=== PATIENT | male | born 1960 | race Hispanic/Latino ===

== ENCOUNTER 2018-08-17 14:42 | Inpatient (IN) | payer BC ==
[2018-08-17] MEDS ORDERED: SODIUM CHLORIDE 0.9% IV ONE ×2 (15:10→15:25)
[2018-08-17 15:32] LABS: VENOUS BLOOD GAS BASE EXCESS 4.1 mmol/L (0.0-2.0); VENOUS BLOOD GAS PCO2 36 mmHg (40-60); VENOUS BLOOD GAS PO2 18 mm/Hg (30-55); VENOUS BLOOD PH 7.49 (7.32-7.43)
[2018-08-17 15:33] LABS: BASO % 0.1 % (0.0-2.0); EOS % 0.2 % (0.0-4.0); HEMOGLOBIN 10.1 g/dL (12.0-18.0); LYMPH # 0.1 K/uL (1.0-4.3); LYMPH % 2.4 % (20.0-40.0); MEAN CELL VOLUME 87.8 fL (80.0-94.0); MEAN CORPUSCULAR HEMOGLOBIN 28.5 pg (27.0-31.0); MEAN CORPUSCULAR HGB CONC 32.4 g/dL (33.0-37.0); MEAN PLATELET VOLUME 7.3 fL (7.2-11.7); MONO % 0.9 % (0.0-10.0); NEUT % 96.4 % (50.0-75.0); NRBC % 0.1 % (0.0-2.0); PLATELET COUNT 329 K/uL (130-400); RBC 3.56 Mil/uL (4.40-5.90); RED CELL DISTRIBUTION WIDTH 13.7 % (11.5-14.5); WHITE BLOOD COUNT 5.2 K/uL (4.8-10.8)
--- NOTE | 2018-08-17 15:34 | C.PDOC ---
History Of Present Illness CC "chills, body aches" HPI: Patient is a 58 year old male who states he started experiencing diffuse chills, diffuse bodyaches while he was at work today. He states he was feeling fine until his symptoms started suddenly at around 1 pm today. He states he took a sip of water and then his face became red and warm, and he started experiencing chills and diffuse body aches and feels lightheaded. He states he has had an intermittent cough which he attributes to his smoking. He states the security person at his work called the ambulance and brought the patient here. He denies recent fevers, headache, chest pain, shortness of breath, palpitations, abdominal pain, nausea, vomiting, diarrhea, constipation, urinary complaints. He states he has has worsening weakness of his legs since May. Denies recent falls, syncopal episodes or near syncopal episodes. He denies slurred speech, decreased sensation. He states his co-worker was sick recently. He states he has not had the flu shot or pnemonia shot. PMH: none PSH: hernia 1990 Home meds: vitamins, supplements, Allergies NKDA Social hx: smokes 3/4ppd since age 21, Drinks 1 beer every night. Denies prior history of IV or drug use. Lives with mother, who is not sick. PMD: none <Carisa Mayes - Last Filed: 08/17/18 19:10> <Carisa Mayes - Last Filed: 08/17/18 19:10> <Luisa Schreiber - Last Filed: 08/18/18 14:47> Time Seen by Provider: 08/17/18 15:01 Chief Complaint (Nursing): Weakness/Neurological Deficit Past Medical History Vital Signs: Last Vital Signs Temp 104 F H 08/17/18 14:56 Pulse 135 H 08/17/18 14:56 Resp 20 08/17/18 14:56 BP 89/41 L 08/17/18 14:56 Pulse Ox 99 08/17/18 14:56 Family History: States: No Known Family Hx - Social History Hx Alcohol Use: Yes Hx Substance Use: No - Immunization History Hx Tetanus Toxoid Vaccination: No Hx Influenza Vaccination: No Hx Pneumococcal Vaccination: No <Carisa Mayes - Last Filed: 08/17/18 19:10> Vital Signs: Last Vital Signs Temp 98.6 F 08/18/18 04:00 Pulse 71 08/18/18 08:00 Resp 19 08/18/18 08:00 BP 93/63 L 08/18/18 08:00 Pulse Ox 98 08/18/18 08:00 <SandratracyLuisa smith - Last Filed: 08/18/18 14:47> Review Of Systems Constitutional: Positive for: Chills, Weakness. Negative for: Fever, Sweats, Malaise, Weight loss ENT: Negative for: Ear Pain, Ear Discharge Cardiovascular: Negative for: Chest Pain, Palpitations Respiratory: Positive for: Cough. Negative for: Shortness of Breath Gastrointestinal: Negative for: Nausea, Vomiting, Abdominal Pain, Constipation Genitourinary: Negative for: Dysuria Musculoskeletal: Negative for: Neck Pain, Shoulder Pain, Back Pain Neurological: Positive for: Weakness (diffuse, not focal), Dizziness (lightheadedness ). Negative for: Seizures Psych: Negative for: Anxiety, Depression <Carisa Mayes - Last Filed: 08/17/18 19:10> Physical Exam - Physical Exam Appears: Other (Patient appears weak, tired, but not currently in pain. ) Skin: Dry, No Jaundice, Other (skin feel warm to touch) Head: Atraumatic, Normacephalic Eye(s): bilateral: PERRL, EOMI Ear(s): Bilateral: Normal Nose: Normal Oral Mucosa: Dry Throat: Normal Neck: Normal, No Midline Cervical Tenderness Cardiovascular: No Friction Rub, No Murmur, No JVD, Other (Tachycardic) Respiratory: Decreased Breath Sounds, No Rales, No Rhonchi, No Stridor, No Wheezing Gastrointestinal/Abdominal: Bowel Sounds, Soft, No Tenderness, No Mass, No Distention, No Rebound, No Hernia, No Ascites Back: No CVA Tenderness Extremity: Normal ROM, Pedal Edema (Minimal), No Calf Tenderness Neurological/Psych: Oriented x3, Normal Speech, Normal Cognition, Normal Cranial Nerves, Cerebellar Signs, Normal Motor, Normal Sensation <Carisa Mayes - Last Filed: 08/17/18 19:10> ED Course And Treatment - Laboratory Results Result Diagrams: 08/17/18 15:27 08/17/18 15:27 ECG Rhythm: Sinus Tachycardia Interpretation Of ECG: Sinus tachycardia at 125 with PACs O2 Sat by Pulse Oximetry: 99 - Radiology CXR: Read By Radiologist CXR Interpretation: Yes: No Acute Disease <Carisa Mayes - Last Filed: 08/17/18 19:10> - Laboratory Results Result Diagrams: 08/18/18 05:49 08/18/18 05:49 <Luisa Schreiber - Last Filed: 08/18/18 14:47> Central Line Placement - Central Line Placement Indication: Emergent IV Access (for pressors, procedure done by Abdoul ANG) Central Line Placement: Right: Internal Jugular The Area Was Thoroughly Prepared With: Chlorhexidine Area Was Locally Anesthetized With: Lidocaine 1% Procedure: Triple Lumen, Placed Using Standard Seldinger Technique, Catheter Was Sewn Into Place, Sterile Dressing Placed Over Line, Procedure Tolerated Well, CXR Ordered To Confirm Placement <Luisa Schreiber - Last Filed: 08/18/18 14:47> Medical Decision Making Medical Decision Making: Code sepsis called after patient found to be febrile with elevated HR, hypotension. CBC, CMP, UA, CXR, VBG, blood cultures, urine cultures ordered. NS IV fluids given. Tylenol 975mg PO given. Vancomycin 1g IV stat and Zosyn 3.375g IV given. White count 5.2 with left shift, bands of 10. Lactate 5.7 Glucose 377 UA neg for leuk esterase and nitrates, positive for ketones, glucose, protein. Beta hydroxybutyrate 1.40 Flu negative 1630 On repeat evaluation, patient HR 108, BP 95/56 1700: Call placed to Dr. Ramey, who agreed to admit patient and requested ICU evaluation. 1710: Patient states he feels better. BP 72/56 HR 103. Additional 1L NS IV bolus (3rd liter) started. 1745: ICU evaluated patient who will accept patient. 1810: Repeat lactate 3.3 <Carisa Mayes - Last Filed: 08/17/18 19:10> Disposition Discussed With : Mansoor Ramey Doctor Will See Patient In The: Hospital - Disposition Disposition Time: 18:00 - POA Core Measure Indicators: Code Sepsis <Carisa Mayes - Last Filed: 08/17/18 19:10> <Luisa Schreiber - Last Filed: 08/18/18 14:47> - Disposition Disposition: HOSPITALIZED Condition: CRITICAL - Clinical Impression Clinical Impression: Sepsis associated hypotension - PA / [employer] DEPARTMENT MANAGER / Resident Statement MD/DO has examined the patient and agrees with the treatment plan. <Luisa Schreiber - Last Filed: 08/18/18 14:47>
[2018-08-17] MEDS ORDERED: Piperacillin/Tazobact 3.375 GM in Sodium Chloride 100 ML IVPB STA (15:43)
[2018-08-17 15:46] LABS: ALBUMIN 2.9 g/dL (3.5-5.0); ALT/SGPT 39 U/L (21-72); AST/SGOT 36 U/L (17-59); BLOOD UREA NITROGEN 12 mg/dL (9-20); CALCIUM 8.8 mg/dl (8.6-10.4); GFR NON-AFRICAN AMERICAN > 60
[2018-08-17 15:55] LABS: BANDS 10 % (0-2); LYMPHOCYTE 4 % (20-40); MONOCYTE 1 % (0-10); NEUTROPHIL 85 % (50-75); PLATELET ESTIMATE NORMAL (NORMAL); TOTAL CELLS COUNTED 100
[2018-08-17 15:56] LABS: ANISOCYTOSIS SLIGHT; HYPOCHROMIC SLIGHT; POIKILOCYTOSIS SLIGHT; TARGET CELLS SLIGHT
--- NOTE | 2018-08-17 16:05 | RAD ---
Date of service: 08/17/2018 HISTORY: Cough COMPARISON: No prior. FINDINGS: LUNGS: The lungs are well inflated and clear. PLEURA: No pleural effusions or pneumothorax. CARDIOVASCULAR: The heart is normal in size. No aortic atherosclerotic calcification present. OSSEOUS STRUCTURES: Within normal limits for the patient's age. VISUALIZED UPPER ABDOMEN: Normal. OTHER FINDINGS: None. IMPRESSION: No active pulmonary disease.
[2018-08-17] MEDS ORDERED: Piperacillin/Tazobact 3.375 gm 100 ML IVPB ONE (16:15)
[2018-08-17 16:32] LABS: SQUAMOUS EPITHIAL < 1 /hpf (0-5); URINE BACTERIA RARE (<OCC); URINE BILIRUBIN NEGATIVE (NEGATIVE); URINE BLOOD NEGATIVE (NEGATIVE); URINE CLARITY Hazy (Clear); URINE COLOR Yellow (YELLOW); URINE GLUCOSE (UA) 3+ mg/dL (Normal); URINE HYALINE CAST >20 /lpf (0-2); URINE LEUKOCYTE ESTERASE NEG Leu/uL (Negative); URINE PROTEIN 2+ mg/dL (NEGATIVE)
[2018-08-17] MEDS ORDERED: Sodium Chloride 0.9% 1,000 ML IV ONE ×2 (16:44→20:47)
[2018-08-17] MEDS ORDERED: Sodium Chloride 0.9% 3,000 ML ONE (17:25)
[2018-08-17] MEDS ORDERED: Vancomycin 1 GM 1 GM/250 ML BAG IVPB ONE (17:46)
[2018-08-17 18:11] LABS: VENOUS BLOOD GAS BASE EXCESS 1.3 mmol/L (0.0-2.0); VENOUS BLOOD GAS PCO2 36 mmHg (40-60); VENOUS BLOOD GAS PO2 23 mm/Hg (30-55); VENOUS BLOOD PH 7.45 (7.32-7.43)
--- NOTE | 2018-08-17 18:11 | CP.PCM.CON ---
<Enrique Dye - Last Filed: 08/17/18 18:14> History of Present Illness - History of Present Illness History of Present Illness: ICU consult note for Dr. Choudhary's service CC: chills/bodyaches HPI: Patient is a 58 yo male w/PMH of prediabetes that is admitted to ICU for low blood pressure and septic shock. Patient state he was totally fine today until he drank some water when he felt his face became very warm and red. He soon started to feel lightheaded and experienced chills. Patient states he has a cough but states it is due to his smoking habit. Patient was seen by his pmd on 08/13 for elevated sugars into the 500s. Patient states he drank 1 gallon of water in past 2 days. Patient denies fevers, chills, chest pain, sob, n/v, constipation or diarrhea, abd pain, diaphoresis, polyuria. PMH: none PSH: hernia 1990 Home meds: vitamins, supplements Allergies NKDA Social hx: smokes 3/4ppd since age 21, Drinks 1 beer every night. Denies prior history of IV or drug use. Lives with mother, who is not sick. Review of Systems - Review of Systems Review of Systems: 12 point ROS obtained and noted as in HPI Past Patient History - Past Social History Smoking Status: Light Smoker < 10 Cigarettes Daily - ENDOCRINE/METABOLIC Hx Diabetes Mellitus Type 2: Yes - PSYCHIATRIC Hx Substance Use: No Meds Allergies/Adverse Reactions: Allergies Allergy/AdvReac Type Severity Reaction Status Date / Time No Known Allergies Allergy Unverified 08/17/18 15:04 Physical Exam - Constitutional Appears: Non-toxic, No Acute Distress - Head Exam Head Exam: NORMAL INSPECTION, NORMOCEPHALIC - Eye Exam Eye Exam: EOMI, Normal appearance. absent: Nystagmus, Scleral icterus - ENT Exam ENT Exam: Mucous Membranes Dry - Respiratory Exam Respiratory Exam: Clear to Auscultation Bilateral, NORMAL BREATHING PATTERN. absent: Rales, Rhonchi, Wheezes - Cardiovascular Exam Cardiovascular Exam: REGULAR RHYTHM, +S1, +S2 Additional comments: borderline tachycardia - GI/Abdominal Exam GI & Abdominal Exam: Normal Bowel Sounds, Soft. absent: Diminished Bowel Sounds, Distended, Firm, Guarding - Extremities Exam Extremities exam: Positive for: pedal edema. Negative for: calf tenderness - Back Exam Back exam: NORMAL INSPECTION. absent: CVA tenderness (L), CVA tenderness (R) - Neurological Exam Neurological exam: Alert, Oriented x3 - Psychiatric Exam Psychiatric exam: Normal Affect, Normal Mood - Skin Skin Exam: Intact, Normal Color Results - Vital Signs Recent Vital Signs: Last Vital Signs Temp 102.3 F H 08/17/18 17:24 Pulse 98 H 08/17/18 17:24 Resp 14 08/17/18 17:24 BP 80/45 L 08/17/18 17:24 Pulse Ox 99 08/17/18 18:07 - Labs Result Diagrams: 08/17/18 15:27 08/17/18 15:27 Labs: Laboratory Results - last 24 hr 08/17/18 08/17/18 08/17/18 14:47 15:25 15:27 WBC 5.2 RBC 3.56 L Hgb 10.1 L Hct 31.2 L MCV 87.8 MCH 28.5 MCHC 32.4 L RDW 13.7 Plt Count 329 MPV 7.3 Neut % (Auto) 96.4 H Lymph % (Auto) 2.4 L [place] % (Auto) 0.9 Eos % (Auto) 0.2 Baso % (Auto) 0.1 Neut # (Auto) 5.0 Lymph # (Auto) 0.1 L [place] # (Auto) 0.0 Eos # (Auto) 0.0 Baso # (Auto) 0.0 Neutrophils % (Manual) 85 H Band Neutrophils % 10 H Lymphocytes % (Manual) 4 L Monocytes % (Manual) 1 Platelet Estimate Normal Hypochromasia (manual) Slight Poikilocytosis (manual Slight Anisocytosis (manual) Slight Target Cells Slight pO2 18 L VBG pH 7.49 H VBG pCO2 36 L VBG HCO3 26.4 VBG Total CO2 28.5 H VBG O2 Sat (Calc) 46.5 VBG Base Excess 4.1 H VBG Potassium 4.2 Sodium 127.0 L Chloride 95.0 L Glucose 399 H Lactate 5.7 H* FiO2 21.0 Crit Value Called To Armani iyer Crit Value Called By [facility] Crit Value Read Back Y Blood Gas Notified Time 1532 Potassium Carbon Dioxide Anion Gap BUN Creatinine Est GFR ( Amer) Est GFR (Non-Af Amer) POC Glucose (mg/dL) 365 H Random Glucose Calcium Total Bilirubin AST ALT Alkaline Phosphatase Total Protein Albumin Globulin Albumin/Globulin Ratio Venous Blood Potassium 4.2 Urine Color Urine Clarity Urine pH Ur Specific [place] Urine Protein Urine Glucose (UA) Urine Ketones Urine Blood Urine Nitrate Urine Bilirubin Urine Urobilinogen Ur Leukocyte Esterase Urine WBC (Auto) Urine RBC (Auto) Ur Squamous Epith Cells Urine Bacteria Hyaline Casts Alcohol, Quantitative B-Hydroxybutyrate Influenza Typ A,B (EIA) 08/17/18 08/17/18 08/17/18 15:27 16:02 16:21 WBC RBC Hgb Hct MCV MCH MCHC RDW Plt Count MPV Neut % (Auto) Lymph % (Auto) [place] % (Auto) Eos % (Auto) Baso % (Auto) Neut # (Auto) Lymph # (Auto) [place] # (Auto) Eos # (Auto) Baso # (Auto) Neutrophils % (Manual) Band Neutrophils % Lymphocytes % (Manual) Monocytes % (Manual) Platelet Estimate Hypochromasia (manual) Poikilocytosis (manual Anisocytosis (manual) Target Cells pO2 VBG pH VBG pCO2 VBG HCO3 VBG Total CO2 VBG O2 Sat (Calc) VBG Base Excess VBG Potassium Sodium 127 L Chloride 90 L Glucose Lactate FiO2 Crit Value Called To Crit Value Called By Crit Value Read Back Blood Gas Notified Time Potassium 4.3 Carbon Dioxide 27 Anion Gap 16 BUN 12 Creatinine 0.8 Est GFR ( Amer) > 60 Est GFR (Non-Af Amer) > 60 POC Glucose (mg/dL) Random Glucose 377 H Calcium 8.8 Total Bilirubin 0.8 AST 36 ALT 39 Alkaline Phosphatase 156 H Total Protein 6.0 L Albumin 2.9 L Globulin 3.1 Albumin/Globulin Ratio 1.0 Venous Blood Potassium Urine Color Yellow Urine Clarity Hazy Urine pH 6.0 Ur Specific [place] 1.011 Urine Protein 2+ H Urine Glucose (UA) 3+ H Urine Ketones 1+ H Urine Blood Negative Urine Nitrate Negative Urine Bilirubin Negative Urine Urobilinogen 4.0 Ur Leukocyte Esterase Neg Urine WBC (Auto) 3 Urine RBC (Auto) 2 Ur Squamous Epith Cells < 1 Urine Bacteria Rare Hyaline Casts >20 H Alcohol, Quantitative B-Hydroxybutyrate Influenza Typ A,B (EIA) Negative for flu a/b 08/17/18 16:26 WBC RBC Hgb Hct MCV MCH MCHC RDW Plt Count MPV Neut % (Auto) Lymph % (Auto) [place] % (Auto) Eos % (Auto) Baso % (Auto) Neut # (Auto) Lymph # (Auto) [place] # (Auto) Eos # (Auto) Baso # (Auto) Neutrophils % (Manual) Band Neutrophils % Lymphocytes % (Manual) Monocytes % (Manual) Platelet Estimate Hypochromasia (manual) Poikilocytosis (manual Anisocytosis (manual) Target Cells pO2 VBG pH VBG pCO2 VBG HCO3 VBG Total CO2 VBG O2 Sat (Calc) VBG Base Excess VBG Potassium Sodium Chloride Glucose Lactate FiO2 Crit Value Called To Crit Value Called By Crit Value Read Back Blood Gas Notified Time Potassium Carbon Dioxide Anion Gap BUN Creatinine Est GFR ( Amer) Est GFR (Non-Af Amer) POC Glucose (mg/dL) Random Glucose Calcium Total Bilirubin AST ALT Alkaline Phosphatase Total Protein Albumin Globulin Albumin/Globulin Ratio Venous Blood Potassium Urine Color Urine Clarity Urine pH Ur Specific [place] Urine Protein Urine Glucose (UA) Urine Ketones Urine Blood Urine Nitrate Urine Bilirubin Urine Urobilinogen Ur Leukocyte Esterase Urine WBC (Auto) Urine RBC (Auto) Ur Squamous Epith Cells Urine Bacteria Hyaline Casts Alcohol, Quantitative < 10 B-Hydroxybutyrate 1.40 H Influenza Typ A,B (EIA) Assessment & Plan - Assessment and Plan (Free Text) Assessment: Patient is a 58 yo male w/PMH of prediabetes that is admitted to ICU for low blood pressure and septic shock. Neuro AAOx3, responsive to questioning, no acute issues Pulm no acute issues maintain spo2>92% CV 3L NS bolus given in ED, patient remains hypotensive Will require multiple more boluses as patient likely dehydrated in setting of elevated blood sugars Consider blood pressure support if patient does not respond to fluid challenge or becomes symptomatic Echo pending Levophed drip initiated in ED Endo Elevated blood sugars- given multiple boluses ISS sliding scale, ACHS, Hypogylemic protocol A1C pending GI no active issues Renal ABG suggestive of contraction alkalosis NS boluses ID Elevated lactate, repeat lactate downtrending Empiric abx via Vanc/Zosyn BCx pending x 2; Procal pending DVT ppx: SCDs, Hep 5000 q 12 GI ppx: Not indicated at this time Disposition: Continue aggressive fluids as patient is in septic shock, continue blood pressure support via pressors, ACHS and insulin, repeat labs in AM PGY-1 Enrique Dye Medical Management discussed w/ Dr. Choudhary <Glenn Choudhary - Last Filed: 08/17/18 19:30> Meds - Medications Medications: Current Medications Acetaminophen (Tylenol 325mg Tab) 650 mg PO Q6 PRN PRN Reason: Fever >100.4 F Dextrose (Dextrose 50% Inj) 0 ml IV STAT PRN; Protocol PRN Reason: Hypoglycemia Protocol Dextrose (Glutose 15) 0 gm PO ONCE PRN; Protocol PRN Reason: Hypoglycemia Protocol Glucagon (Glucagen Diagnostic Kit) 0 mg IM STAT PRN; Protocol PRN Reason: Hypoglycemia Protocol Heparin Sodium (Porcine) (Heparin) 5,000 units SC Q12 EDER Dextrose (Dextrose 5% In Water 1000 Ml) 1,000 mls @ 0 mls/hr IV .Q0M PRN; Protocol PRN Reason: Hypoglycemia Protocol Norepinephrine Bitartrate 4 mg (/ Dextrose) 254 mls @ 15.24 mls/hr IV .[id number] PRN; Protocol PRN Reason: TITRATE PER MD ORDER Last Admin: 08/17/18 19:09 Dose: 4 mcg/min, 15.24 mls/hr Insulin Human Regular (Novolin R) 0 unit SC ACHS EDER; Protocol Results - Vital Signs Recent Vital Signs: Last Vital Signs Temp 102.3 F H 08/17/18 17:24 Pulse 90 08/17/18 18:21 Resp 15 08/17/18 18:21 BP 73/46 L 08/17/18 19:09 Pulse Ox 99 08/17/18 19:10 - Labs Result Diagrams: 08/17/18 15:27 08/17/18 15:27 Labs: Laboratory Results - last 24 hr 08/17/18 08/17/18 08/17/18 14:47 15:25 15:27 WBC 5.2 RBC 3.56 L Hgb 10.1 L Hct 31.2 L MCV 87.8 MCH 28.5 MCHC 32.4 L RDW 13.7 Plt Count 329 MPV 7.3 Neut % (Auto) 96.4 H Lymph % (Auto) 2.4 L [place] % (Auto) 0.9 Eos % (Auto) 0.2 Baso % (Auto) 0.1 Neut # (Auto) 5.0 Lymph # (Auto) 0.1 L [place] # (Auto) 0.0 Eos # (Auto) 0.0 Baso # (Auto) 0.0 Neutrophils % (Manual) 85 H Band Neutrophils % 10 H Lymphocytes % (Manual) 4 L Monocytes % (Manual) 1 Platelet Estimate Normal Hypochromasia (manual) Slight Poikilocytosis (manual Slight Anisocytosis (manual) Slight Target Cells Slight pO2 18 L VBG pH 7.49 H VBG pCO2 36 L VBG HCO3 26.4 VBG Total CO2 28.5 H VBG O2 Sat (Calc) 46.5 VBG Base Excess 4.1 H VBG Potassium 4.2 Sodium 127.0 L Chloride 95.0 L Glucose 399 H Lactate 5.7 H* FiO2 21.0 Crit Value Called To Armani iyer Crit Value Called By [facility] Crit Value Read Back Y Blood Gas Notified Time 1532 Potassium Carbon Dioxide Anion Gap BUN Creatinine Est GFR ( Amer) Est GFR (Non-Af Amer) POC Glucose (mg/dL) 365 H Random Glucose Calcium Total Bilirubin AST ALT Alkaline Phosphatase Total Protein Albumin Globulin Albumin/Globulin Ratio Venous Blood Potassium 4.2 Urine Color Urine Clarity Urine pH Ur Specific [place] Urine Protein Urine Glucose (UA) Urine Ketones Urine Blood Urine Nitrate Urine Bilirubin Urine Urobilinogen Ur Leukocyte Esterase Urine WBC (Auto) Urine RBC (Auto) Ur Squamous Epith Cells Urine Bacteria Hyaline Casts Urine Opiates Screen Urine Methadone Screen Ur Barbiturates Screen Ur Phencyclidine Scrn Ur Amphetamines Screen U Benzodiazepines Scrn U Oth Cocaine Metabols U Cannabinoids Screen Alcohol, Quantitative B-Hydroxybutyrate Influenza Typ A,B (EIA) 08/17/18 08/17/18 08/17/18 15:27 16:02 16:21 WBC RBC Hgb Hct MCV MCH MCHC RDW Plt Count MPV Neut % (Auto) Lymph % (Auto) [place] % (Auto) Eos % (Auto) Baso % (Auto) Neut # (Auto) Lymph # (Auto) [place] # (Auto) Eos # (Auto) Baso # (Auto) Neutrophils % (Manual) Band Neutrophils % Lymphocytes % (Manual) Monocytes % (Manual) Platelet Estimate Hypochromasia (manual) Poikilocytosis (manual Anisocytosis (manual) Target Cells pO2 VBG pH VBG pCO2 VBG HCO3 VBG Total CO2 VBG O2 Sat (Calc) VBG Base Excess VBG Potassium Sodium 127 L Chloride 90 L Glucose Lactate FiO2 Crit Value Called To Crit Value Called By Crit Value Read Back Blood Gas Notified Time Potassium 4.3 Carbon Dioxide 27 Anion Gap 16 BUN 12 Creatinine 0.8 Est GFR ( Amer) > 60 Est GFR (Non-Af Amer) > 60 POC Glucose (mg/dL) Random Glucose 377 H Calcium 8.8 Total Bilirubin 0.8 AST 36 ALT 39 Alkaline Phosphatase 156 H Total Protein 6.0 L Albumin 2.9 L Globulin 3.1 Albumin/Globulin Ratio 1.0 Venous Blood Potassium Urine Color Yellow Urine Clarity Hazy Urine pH 6.0 Ur Specific [place] 1.011 Urine Protein 2+ H Urine Glucose (UA) 3+ H Urine Ketones 1+ H Urine Blood Negative Urine Nitrate Negative Urine Bilirubin Negative Urine Urobilinogen 4.0 Ur Leukocyte Esterase Neg Urine WBC (Auto) 3 Urine RBC (Auto) 2 Ur Squamous Epith Cells < 1 Urine Bacteria Rare Hyaline Casts >20 H Urine Opiates Screen Urine Methadone Screen Ur Barbiturates Screen Ur Phencyclidine Scrn Ur Amphetamines Screen U Benzodiazepines Scrn U Oth Cocaine Metabols U Cannabinoids Screen Alcohol, Quantitative B-Hydroxybutyrate Influenza Typ A,B (EIA) Negative for flu a/b 08/17/18 08/17/18 08/17/18 16:26 18:04 18:05 WBC RBC Hgb Hct MCV MCH MCHC RDW Plt Count MPV Neut % (Auto) Lymph % (Auto) [place] % (Auto) Eos % (Auto) Baso % (Auto) Neut # (Auto) Lymph # (Auto) [place] # (Auto) Eos # (Auto) Baso # (Auto) Neutrophils % (Manual) Band Neutrophils % Lymphocytes % (Manual) Monocytes % (Manual) Platelet Estimate Hypochromasia (manual) Poikilocytosis (manual Anisocytosis (manual) Target Cells pO2 23 L VBG pH 7.45 H VBG pCO2 36 L VBG HCO3 24.5 VBG Total CO2 26.1 VBG O2 Sat (Calc) 58.8 VBG Base Excess 1.3 VBG Potassium 3.8 Sodium 131.0 L Chloride 99.0 Glucose 366 H Lactate 3.3 H FiO2 21.0 Crit Value Called To Crit Value Called By Crit Value Read Back Blood Gas Notified Time Potassium Carbon Dioxide Anion Gap BUN Creatinine Est GFR ( Amer) Est GFR (Non-Af Amer) POC Glucose (mg/dL) Random Glucose Calcium Total Bilirubin AST ALT Alkaline Phosphatase Total Protein Albumin Globulin Albumin/Globulin Ratio Venous Blood Potassium 3.8 Urine Color Urine Clarity Urine pH Ur Specific [place] Urine Protein Urine Glucose (UA) Urine Ketones Urine Blood Urine Nitrate Urine Bilirubin Urine Urobilinogen Ur Leukocyte Esterase Urine WBC (Auto) Urine RBC (Auto) Ur Squamous Epith Cells Urine Bacteria Hyaline Casts Urine Opiates Screen Negative Urine Methadone Screen Negative Ur Barbiturates Screen Negative Ur Phencyclidine Scrn Negative Ur Amphetamines Screen Negative U Benzodiazepines Scrn Negative U Oth Cocaine Metabols Negative U Cannabinoids Screen Negative Alcohol, Quantitative < 10 B-Hydroxybutyrate 1.40 H Influenza Typ A,B (EIA) 08/17/18 18:20 WBC RBC Hgb Hct MCV MCH MCHC RDW Plt Count MPV Neut % (Auto) Lymph % (Auto) [place] % (Auto) Eos % (Auto) Baso % (Auto) Neut # (Auto) Lymph # (Auto) [place] # (Auto) Eos # (Auto) Baso # (Auto) Neutrophils % (Manual) Band Neutrophils % Lymphocytes % (Manual) Monocytes % (Manual) Platelet Estimate Hypochromasia (manual) Poikilocytosis (manual Anisocytosis (manual) Target Cells pO2 VBG pH VBG pCO2 VBG HCO3 VBG Total CO2 VBG O2 Sat (Calc) VBG Base Excess VBG Potassium Sodium Chloride Glucose Lactate FiO2 Crit Value Called To Crit Value Called By Crit Value Read Back Blood Gas Notified Time Potassium Carbon Dioxide Anion Gap BUN Creatinine Est GFR ( Amer) Est GFR (Non-Af Amer) POC Glucose (mg/dL) 356 H Random Glucose Calcium Total Bilirubin AST ALT Alkaline Phosphatase Total Protein Albumin Globulin Albumin/Globulin Ratio Venous Blood Potassium Urine Color Urine Clarity Urine pH Ur Specific [place] Urine Protein Urine Glucose (UA) Urine Ketones Urine Blood Urine Nitrate Urine Bilirubin Urine Urobilinogen Ur Leukocyte Esterase Urine WBC (Auto) Urine RBC (Auto) Ur Squamous Epith Cells Urine Bacteria Hyaline Casts Urine Opiates Screen Urine Methadone Screen Ur Barbiturates Screen Ur Phencyclidine Scrn Ur Amphetamines Screen U Benzodiazepines Scrn U Oth Cocaine Metabols U Cannabinoids Screen Alcohol, Quantitative B-Hydroxybutyrate Influenza Typ A,B (EIA) Attending/Attestation - Attestation I have personally seen and examined this patient.: Yes I have fully participated in the care of the patient.: Yes I have reviewed all pertinent clinical information: Yes Notes (Text): 08/17/18 19:29 Patient seen and examined in the emergency room assessment and plan as per resident note fluid resuscitation iV antibiotics ICU monitoring
[2018-08-17] MEDS ORDERED: Dextrose 50% SYRINGE Inj (50 ml) IV PRN (18:20)
[2018-08-17] MEDS ORDERED: Glucagon Recombinant 1 mg Inj IM PRN (18:20)
[2018-08-17 18:26] LABS: BARBITURATES, UR NEGATIVE (NEGATIVE); BENZODIAZEPINES, UR NEGATIVE (NEGATIVE); OPIATES, UR NEGATIVE (NEGATIVE); PHENCYCLIDINE, UR NEGATIVE (NEGATIVE)
--- NOTE | 2018-08-17 19:27 | CP.PCM.HP ---
History of Present Illness - History of Present Illness History of Present Illness: Patient was admitted from emergency room. Patient states that 2 days ago there was a medical van from [facility] where he did his blood sugar which was over 500. Patient was given Accu-Chek machine and he checked again the sugar prior to admission which was 472. On the day of admission patient was working in his job and suddenly felt nauseous and diaphoretic and had a near syncopal episode. Patient was brought to the emergency room patient had a hypertension IV fluids were given with mild improvement of the blood pressure in the 90s patient had a high sugar mild ketones chest x-ray was normal and there was no evidence of any obvious focus of infection. Sepsis could was called patient was given IV antibiotic and admitted to ICU. Patient does not give any medical illness. The last time patient saw any physician was 10 years ago for sugar. Since then patient has not taken any medication. Patient is also complaining of mild edema of the legs and generalized aches and pains. Present on Admission - Present on Admission Any Indicators Present on Admission: No Review of Systems - Review of Systems All systems: reviewed and no additional remarkable complaints except (GENERALIZED FATIGUE DIAPHORESIS.) Past Patient History - Past Social History Smoking Status: Light Smoker < 10 Cigarettes Daily - ENDOCRINE/METABOLIC Hx Diabetes Mellitus Type 2: Yes - PSYCHIATRIC Hx Substance Use: No Meds Allergies/Adverse Reactions: Allergies Allergy/AdvReac Type Severity Reaction Status Date / Time No Known Allergies Allergy Unverified 08/17/18 15:04 Physical Exam - Constitutional Appears: Toxic - Head Exam Head Exam: ATRAUMATIC, NORMAL INSPECTION, NORMOCEPHALIC - Eye Exam Eye Exam: EOMI, Normal appearance, PERRL - ENT Exam ENT Exam: Mucous Membranes Dry - Neck Exam Neck exam: Positive for: Normal Inspection - Respiratory Exam Respiratory Exam: NORMAL BREATHING PATTERN - Cardiovascular Exam Cardiovascular Exam: +S1, +S2. absent: Systolic Murmur - GI/Abdominal Exam GI & Abdominal Exam: Normal Bowel Sounds, Soft. absent: Tenderness - Extremities Exam Extremities exam: Positive for: pedal edema. Negative for: calf tenderness - Back Exam Back exam: NORMAL INSPECTION - Neurological Exam Neurological exam: Alert, CN II-XII Intact, Oriented x3, Reflexes Normal - Psychiatric Exam Psychiatric exam: Normal Affect Results - Vital Signs Recent Vital Signs: Last Vital Signs Temp 102.3 F H 08/17/18 17:24 Pulse 90 08/17/18 18:21 Resp 15 08/17/18 18:21 BP 73/46 L 08/17/18 19:09 Pulse Ox 99 08/17/18 19:10 - Labs Result Diagrams: 08/18/18 05:49 08/18/18 05:49 Labs: Laboratory Results - last 24 hr 08/17/18 08/17/18 08/17/18 14:47 15:25 15:27 WBC 5.2 RBC 3.56 L Hgb 10.1 L Hct 31.2 L MCV 87.8 MCH 28.5 MCHC 32.4 L RDW 13.7 Plt Count 329 MPV 7.3 Neut % (Auto) 96.4 H Lymph % (Auto) 2.4 L Lynn % (Auto) 0.9 Eos % (Auto) 0.2 Baso % (Auto) 0.1 Neut # (Auto) 5.0 Lymph # (Auto) 0.1 L Lynn # (Auto) 0.0 Eos # (Auto) 0.0 Baso # (Auto) 0.0 Neutrophils % (Manual) 85 H Band Neutrophils % 10 H Lymphocytes % (Manual) 4 L Monocytes % (Manual) 1 Platelet Estimate Normal Hypochromasia (manual) Slight Poikilocytosis (manual Slight Anisocytosis (manual) Slight Target Cells Slight pO2 18 L VBG pH 7.49 H VBG pCO2 36 L VBG HCO3 26.4 VBG Total CO2 28.5 H VBG O2 Sat (Calc) 46.5 VBG Base Excess 4.1 H VBG Potassium 4.2 Sodium 127.0 L Chloride 95.0 L Glucose 399 H Lactate 5.7 H* FiO2 21.0 Crit Value Called To Armani iyer Crit Value Called By [facility] Crit Value Read Back Y Blood Gas Notified Time 1532 Potassium Carbon Dioxide Anion Gap BUN Creatinine Est GFR ( Amer) Est GFR (Non-Af Amer) POC Glucose (mg/dL) 365 H Random Glucose Calcium Total Bilirubin AST ALT Alkaline Phosphatase Total Protein Albumin Globulin Albumin/Globulin Ratio Venous Blood Potassium 4.2 Urine Color Urine Clarity Urine pH Ur Specific [place] Urine Protein Urine Glucose (UA) Urine Ketones Urine Blood Urine Nitrate Urine Bilirubin Urine Urobilinogen Ur Leukocyte Esterase Urine WBC (Auto) Urine RBC (Auto) Ur Squamous Epith Cells Urine Bacteria Hyaline Casts Urine Opiates Screen Urine Methadone Screen Ur Barbiturates Screen Ur Phencyclidine Scrn Ur Amphetamines Screen U Benzodiazepines Scrn U Oth Cocaine Metabols U Cannabinoids Screen Alcohol, Quantitative B-Hydroxybutyrate Influenza Typ A,B (EIA) 08/17/18 08/17/18 08/17/18 15:27 16:02 16:21 WBC RBC Hgb Hct MCV MCH MCHC RDW Plt Count MPV Neut % (Auto) Lymph % (Auto) Lynn % (Auto) Eos % (Auto) Baso % (Auto) Neut # (Auto) Lymph # (Auto) Lynn # (Auto) Eos # (Auto) Baso # (Auto) Neutrophils % (Manual) Band Neutrophils % Lymphocytes % (Manual) Monocytes % (Manual) Platelet Estimate Hypochromasia (manual) Poikilocytosis (manual Anisocytosis (manual) Target Cells pO2 VBG pH VBG pCO2 VBG HCO3 VBG Total CO2 VBG O2 Sat (Calc) VBG Base Excess VBG Potassium Sodium 127 L Chloride 90 L Glucose Lactate FiO2 Crit Value Called To Crit Value Called By Crit Value Read Back Blood Gas Notified Time Potassium 4.3 Carbon Dioxide 27 Anion Gap 16 BUN 12 Creatinine 0.8 Est GFR ( Amer) > 60 Est GFR (Non-Af Amer) > 60 POC Glucose (mg/dL) Random Glucose 377 H Calcium 8.8 Total Bilirubin 0.8 AST 36 ALT 39 Alkaline Phosphatase 156 H Total Protein 6.0 L Albumin 2.9 L Globulin 3.1 Albumin/Globulin Ratio 1.0 Venous Blood Potassium Urine Color Yellow Urine Clarity Hazy Urine pH 6.0 Ur Specific [place] 1.011 Urine Protein 2+ H Urine Glucose (UA) 3+ H Urine Ketones 1+ H Urine Blood Negative Urine Nitrate Negative Urine Bilirubin Negative Urine Urobilinogen 4.0 Ur Leukocyte Esterase Neg Urine WBC (Auto) 3 Urine RBC (Auto) 2 Ur Squamous Epith Cells < 1 Urine Bacteria Rare Hyaline Casts >20 H Urine Opiates Screen Urine Methadone Screen Ur Barbiturates Screen Ur Phencyclidine Scrn Ur Amphetamines Screen U Benzodiazepines Scrn U Oth Cocaine Metabols U Cannabinoids Screen Alcohol, Quantitative B-Hydroxybutyrate Influenza Typ A,B (EIA) Negative for flu a/b 08/17/18 08/17/18 08/17/18 16:26 18:04 18:05 WBC RBC Hgb Hct MCV MCH MCHC RDW Plt Count MPV Neut % (Auto) Lymph % (Auto) Lynn % (Auto) Eos % (Auto) Baso % (Auto) Neut # (Auto) Lymph # (Auto) Lynn # (Auto) Eos # (Auto) Baso # (Auto) Neutrophils % (Manual) Band Neutrophils % Lymphocytes % (Manual) Monocytes % (Manual) Platelet Estimate Hypochromasia (manual) Poikilocytosis (manual Anisocytosis (manual) Target Cells pO2 23 L VBG pH 7.45 H VBG pCO2 36 L VBG HCO3 24.5 VBG Total CO2 26.1 VBG O2 Sat (Calc) 58.8 VBG Base Excess 1.3 VBG Potassium 3.8 Sodium 131.0 L Chloride 99.0 Glucose 366 H Lactate 3.3 H FiO2 21.0 Crit Value Called To Crit Value Called By Crit Value Read Back Blood Gas Notified Time Potassium Carbon Dioxide Anion Gap BUN Creatinine Est GFR ( Amer) Est GFR (Non-Af Amer) POC Glucose (mg/dL) Random Glucose Calcium Total Bilirubin AST ALT Alkaline Phosphatase Total Protein Albumin Globulin Albumin/Globulin Ratio Venous Blood Potassium 3.8 Urine Color Urine Clarity Urine pH Ur Specific [place] Urine Protein Urine Glucose (UA) Urine Ketones Urine Blood Urine Nitrate Urine Bilirubin Urine Urobilinogen Ur Leukocyte Esterase Urine WBC (Auto) Urine RBC (Auto) Ur Squamous Epith Cells Urine Bacteria Hyaline Casts Urine Opiates Screen Negative Urine Methadone Screen Negative Ur Barbiturates Screen Negative Ur Phencyclidine Scrn Negative Ur Amphetamines Screen Negative U Benzodiazepines Scrn Negative U Oth Cocaine Metabols Negative U Cannabinoids Screen Negative Alcohol, Quantitative < 10 B-Hydroxybutyrate 1.40 H Influenza Typ A,B (EIA) 08/17/18 18:20 WBC RBC Hgb Hct MCV MCH MCHC RDW Plt Count MPV Neut % (Auto) Lymph % (Auto) Lynn % (Auto) Eos % (Auto) Baso % (Auto) Neut # (Auto) Lymph # (Auto) Lynn # (Auto) Eos # (Auto) Baso # (Auto) Neutrophils % (Manual) Band Neutrophils % Lymphocytes % (Manual) Monocytes % (Manual) Platelet Estimate Hypochromasia (manual) Poikilocytosis (manual Anisocytosis (manual) Target Cells pO2 VBG pH VBG pCO2 VBG HCO3 VBG Total CO2 VBG O2 Sat (Calc) VBG Base Excess VBG Potassium Sodium Chloride Glucose Lactate FiO2 Crit Value Called To Crit Value Called By Crit Value Read Back Blood Gas Notified Time Potassium Carbon Dioxide Anion Gap BUN Creatinine Est GFR ( Amer) Est GFR (Non-Af Amer) POC Glucose (mg/dL) 356 H Random Glucose Calcium Total Bilirubin AST ALT Alkaline Phosphatase Total Protein Albumin Globulin Albumin/Globulin Ratio Venous Blood Potassium Urine Color Urine Clarity Urine pH Ur Specific [place] Urine Protein Urine Glucose (UA) Urine Ketones Urine Blood Urine Nitrate Urine Bilirubin Urine Urobilinogen Ur Leukocyte Esterase Urine WBC (Auto) Urine RBC (Auto) Ur Squamous Epith Cells Urine Bacteria Hyaline Casts Urine Opiates Screen Urine Methadone Screen Ur Barbiturates Screen Ur Phencyclidine Scrn Ur Amphetamines Screen U Benzodiazepines Scrn U Oth Cocaine Metabols U Cannabinoids Screen Alcohol, Quantitative B-Hydroxybutyrate Influenza Typ A,B (EIA) Assessment & Plan (1) Sepsis associated hypotension Status: Acute (2) Diabetes mellitus Status: Acute (3) Weight loss Status: Acute
--- NOTE | 2018-08-17 19:51 | CP.PCM.CON ---
History of Present Illness - History of Present Illness History of Present Illness: INFECTIOUS DISEASE CONSULT; CC " hyperpyrexia ,chills, body aches" HPI: 58 year old male who states he started experiencing diffuse chills, diffuse bodyaches while he was at work today. He states he was feeling fine until his symptoms started suddenly at around 1 pm today. He states he took a sip of water and then his face became red and warm, and he started experiencing chills and diffuse body aches and feels lightheaded. He states he has had an intermittent cough which he attributes to his smoking. He states the security person at his work called the ambulance and brought the patient here. He denies recent fevers, headache, chest pain, shortness of breath, palpitations, abdominal pain, nausea, vomiting, diarrhea, constipation, urinary complaints. He states he has had worsening weakness of his legs since May 2018.Presently having difficulty climbing up stairs while at work for his office is on the second floor .Denies recent falls, syncopal episodes or near syncopal episodes. He denies slurred speech, decreased sensation. He admits to loss of weight 28 pounds since 3-4MONTHS up till now. patient denies night sweats. He states his co-worker was sick recently with RESPIRATORY TRACT INFECTION. 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 IMMUNIZATIONS NOT UP TO DATE ON THE FLU OR PNEUMONIA SHOT. PMH: HX PNEUMONIA 1979, PSH: hernia 1990 Home meds: vitamins, supplements, Allergies NKDA Social hx: smokes 3/4ppd since age 21, Drinks 1 beer every night. Denies prior history of IV or drug use. Lives with mother, who is not sick. PATIENT IS SINGLE, DENIES HOMOSEXUAL ACTI VITY. PMD: none Review of Systems - Constitutional Constitutional: Chills, Fever, Weight Loss (PATIENT WEIGHT LOSS 28 POUNDS IN PAST FEW MONTHS .) - EENT Eyes: absent: Change in Vision Nose/Mouth/Throat: absent: Nasal Congestion, Dysphagia, Mouth Lesions - Cardiovascular Cardiovascular: absent: Chest Pain, Dyspnea, Pedal Edema - Respiratory Respiratory: Cough (DRY COUGH). absent: Hemoptysis - Gastrointestinal Gastrointestinal: absent: Abdominal Pain, Change in Bowel Habits, Diarrhea, Nausea, Odynophagia, Vomiting - Genitourinary Genitourinary: absent: Difficulty Urinating, Dysuria, Hematuria - Neurological Neurological: Weakness (DIFFICULTY CLIMBING STAIRS.). absent: Focal Weakness, Headaches, Paresthesias - Endocrine Endocrine: Polydipsia - Hematologic/Lymphatic Hematologic: As Per HPI. absent: Easy Bruising, Lymphadenopathy Past Patient History - Past Social History Smoking Status: Light Smoker < 10 Cigarettes Daily - ENDOCRINE/METABOLIC Hx Diabetes Mellitus Type 2: Yes - PSYCHIATRIC Hx Substance Use: No Meds Home Medications: Home Medication List Medication Instructions Recorded Confirmed Type Cephalexin [cephalexin] 500 mg PO BID #10 cap 08/25/18 Rx Folic Acid 1 mg PO DAILY #30 tab 08/25/18 Rx Multivitamins [Hexavitamin] 1 tab PO DAILY #30 tab 08/25/18 Rx metFORMIN [glucOPHAGE] 500 mg PO BID #60 tab 08/25/18 Rx Allergies/Adverse Reactions: Allergies Allergy/AdvReac Type Severity Reaction Status Date / Time No Known Allergies Allergy Unverified 08/17/18 15:04 - Medications Medications: Current Medications Acetaminophen (Tylenol 325mg Tab) 650 mg PO Q6 PRN PRN Reason: Fever >100.4 F Dextrose (Dextrose 50% Inj) 0 ml IV STAT PRN; Protocol PRN Reason: Hypoglycemia Protocol Dextrose (Glutose 15) 0 gm PO ONCE PRN; Protocol PRN Reason: Hypoglycemia Protocol Glucagon (Glucagen Diagnostic Kit) 0 mg IM STAT PRN; Protocol PRN Reason: Hypoglycemia Protocol Heparin Sodium (Porcine) (Heparin) 5,000 units SC Q12 EDER Dextrose (Dextrose 5% In Water 1000 Ml) 1,000 mls @ 0 mls/hr IV .Q0M PRN; Protocol PRN Reason: Hypoglycemia Protocol Norepinephrine Bitartrate 4 mg (/ Dextrose) 254 mls @ 15.24 mls/hr IV .[id number] PRN; Protocol PRN Reason: TITRATE PER MD ORDER Last Admin: 08/17/18 19:09 Dose: 4 mcg/min, 15.24 mls/hr Insulin Human Regular (Novolin R) 0 unit SC ACHS EDER; Protocol Physical Exam - Constitutional Appears: No Acute Distress - Head Exam Head Exam: NORMAL INSPECTION - Eye Exam Eye Exam: EOMI, PERRL - ENT Exam ENT Exam: Mucous Membranes Dry, Normal Oropharynx - Neck Exam Neck exam: Positive for: Normal Inspection. Negative for: Lymphadenopathy, Meningismus - Respiratory Exam Respiratory Exam: Clear to Auscultation Bilateral, NORMAL BREATHING PATTERN - Cardiovascular Exam Cardiovascular Exam: Tachycardia, REGULAR RHYTHM, +S1, +S2 - GI/Abdominal Exam GI & Abdominal Exam: Normal Bowel Sounds, Soft. absent: Organomegaly - Extremities Exam Extremities exam: Positive for: normal capillary refill. Negative for: calf tenderness, pedal edema, tenderness - Neurological Exam Neurological exam: Alert, CN II-XII Intact, Oriented x3, Reflexes Normal - Psychiatric Exam Psychiatric exam: Normal Mood - Skin Skin Exam: Normal Color, Warm Results - Vital Signs Recent Vital Signs: Last Vital Signs Temp 102.3 F H 08/17/18 17:24 Pulse 90 08/17/18 18:21 Resp 15 08/17/18 18:21 BP 73/46 L 08/17/18 19:09 Pulse Ox 99 08/17/18 19:10 - Labs Result Diagrams: 08/25/18 07:09 08/25/18 07:09 Labs: Laboratory Results - last 24 hr 08/17/18 08/17/18 08/17/18 14:47 15:25 15:27 WBC 5.2 RBC 3.56 L Hgb 10.1 L Hct 31.2 L MCV 87.8 MCH 28.5 MCHC 32.4 L RDW 13.7 Plt Count 329 MPV 7.3 Neut % (Auto) 96.4 H Lymph % (Auto) 2.4 L Braxton % (Auto) 0.9 Eos % (Auto) 0.2 Baso % (Auto) 0.1 Neut # (Auto) 5.0 Lymph # (Auto) 0.1 L Braxton # (Auto) 0.0 Eos # (Auto) 0.0 Baso # (Auto) 0.0 Neutrophils % (Manual) 85 H Band Neutrophils % 10 H Lymphocytes % (Manual) 4 L Monocytes % (Manual) 1 Platelet Estimate Normal Hypochromasia (manual) Slight Poikilocytosis (manual Slight Anisocytosis (manual) Slight Target Cells Slight pO2 18 L VBG pH 7.49 H VBG pCO2 36 L VBG HCO3 26.4 VBG Total CO2 28.5 H VBG O2 Sat (Calc) 46.5 VBG Base Excess 4.1 H VBG Potassium 4.2 Sodium 127.0 L Chloride 95.0 L Glucose 399 H Lactate 5.7 H* FiO2 21.0 Crit Value Called To Armani iyer Crit Value Called By [facility] Crit Value Read Back Y Blood Gas Notified Time 1532 Potassium Carbon Dioxide Anion Gap BUN Creatinine Est GFR ( Amer) Est GFR (Non-Af Amer) POC Glucose (mg/dL) 365 H Random Glucose Hemoglobin A1c Calcium Total Bilirubin AST ALT Alkaline Phosphatase Total Protein Albumin Globulin Albumin/Globulin Ratio Venous Blood Potassium 4.2 Urine Color Urine Clarity Urine pH Ur Specific [place] Urine Protein Urine Glucose (UA) Urine Ketones Urine Blood Urine Nitrate Urine Bilirubin Urine Urobilinogen Ur Leukocyte Esterase Urine WBC (Auto) Urine RBC (Auto) Ur Squamous Epith Cells Urine Bacteria Hyaline Casts Urine Opiates Screen Urine Methadone Screen Ur Barbiturates Screen Ur Phencyclidine Scrn Ur Amphetamines Screen U Benzodiazepines Scrn U Oth Cocaine Metabols U Cannabinoids Screen Alcohol, Quantitative B-Hydroxybutyrate Influenza Typ A,B (EIA) 08/17/18 08/17/18 08/17/18 15:27 16:02 16:21 WBC RBC Hgb Hct MCV MCH MCHC RDW Plt Count MPV Neut % (Auto) Lymph % (Auto) [place] % (Auto) Eos % (Auto) Baso % (Auto) Neut # (Auto) Lymph # (Auto) Braxton # (Auto) Eos # (Auto) Baso # (Auto) Neutrophils % (Manual) Band Neutrophils % Lymphocytes % (Manual) Monocytes % (Manual) Platelet Estimate Hypochromasia (manual) Poikilocytosis (manual Anisocytosis (manual) Target Cells pO2 VBG pH VBG pCO2 VBG HCO3 VBG Total CO2 VBG O2 Sat (Calc) VBG Base Excess VBG Potassium Sodium 127 L Chloride 90 L Glucose Lactate FiO2 Crit Value Called To Crit Value Called By Crit Value Read Back Blood Gas Notified Time Potassium 4.3 Carbon Dioxide 27 Anion Gap 16 BUN 12 Creatinine 0.8 Est GFR ( Amer) > 60 Est GFR (Non-Af Amer) > 60 POC Glucose (mg/dL) Random Glucose 377 H Hemoglobin A1c Calcium 8.8 Total Bilirubin 0.8 AST 36 ALT 39 Alkaline Phosphatase 156 H Total Protein 6.0 L Albumin 2.9 L Globulin 3.1 Albumin/Globulin Ratio 1.0 Venous Blood Potassium Urine Color Yellow Urine Clarity Hazy Urine pH 6.0 Ur Specific [place] 1.011 Urine Protein 2+ H Urine Glucose (UA) 3+ H Urine Ketones 1+ H Urine Blood Negative Urine Nitrate Negative Urine Bilirubin Negative Urine Urobilinogen 4.0 Ur Leukocyte Esterase Neg Urine WBC (Auto) 3 Urine RBC (Auto) 2 Ur Squamous Epith Cells < 1 Urine Bacteria Rare Hyaline Casts >20 H Urine Opiates Screen Urine Methadone Screen Ur Barbiturates Screen Ur Phencyclidine Scrn Ur Amphetamines Screen U Benzodiazepines Scrn U Oth Cocaine Metabols U Cannabinoids Screen Alcohol, Quantitative B-Hydroxybutyrate Influenza Typ A,B (EIA) Negative for flu a/b 08/17/18 08/17/18 08/17/18 16:26 18:04 18:05 WBC RBC Hgb Hct MCV MCH MCHC RDW Plt Count MPV Neut % (Auto) Lymph % (Auto) Bra[place] % (Auto) Eos % (Auto) Baso % (Auto) Neut # (Auto) Lymph # (Auto) [place] # (Auto) Eos # (Auto) Baso # (Auto) Neutrophils % (Manual) Band Neutrophils % Lymphocytes % (Manual) Monocytes % (Manual) Platelet Estimate Hypochromasia (manual) Poikilocytosis (manual Anisocytosis (manual) Target Cells pO2 23 L VBG pH 7.45 H VBG pCO2 36 L VBG HCO3 24.5 VBG Total CO2 26.1 VBG O2 Sat (Calc) 58.8 VBG Base Excess 1.3 VBG Potassium 3.8 Sodium 131.0 L Chloride 99.0 Glucose 366 H Lactate 3.3 H FiO2 21.0 Crit Value Called To Crit Value Called By Crit Value Read Back Blood Gas Notified Time Potassium Carbon Dioxide Anion Gap BUN Creatinine Est GFR ( Amer) Est GFR (Non-Af Amer) POC Glucose (mg/dL) Random Glucose Hemoglobin A1c Calcium Total Bilirubin AST ALT Alkaline Phosphatase Total Protein Albumin Globulin Albumin/Globulin Ratio Venous Blood Potassium 3.8 Urine Color Urine Clarity Urine pH Ur Specific [place] Urine Protein Urine Glucose (UA) Urine Ketones Urine Blood Urine Nitrate Urine Bilirubin Urine Urobilinogen Ur Leukocyte Esterase Urine WBC (Auto) Urine RBC (Auto) Ur Squamous Epith Cells Urine Bacteria Hyaline Casts Urine Opiates Screen Negative Urine Methadone Screen Negative Ur Barbiturates Screen Negative Ur Phencyclidine Scrn Negative Ur Amphetamines Screen Negative U Benzodiazepines Scrn Negative U Oth Cocaine Metabols Negative U Cannabinoids Screen Negative Alcohol, Quantitative < 10 B-Hydroxybutyrate 1.40 H Influenza Typ A,B (EIA) 08/17/18 08/17/18 08/17/18 18:20 19:30 19:35 WBC RBC Hgb Hct MCV MCH MCHC RDW Plt Count MPV Neut % (Auto) Lymph % (Auto) [place]xton % (Auto) Eos % (Auto) Baso % (Auto) Neut # (Auto) Lymph # (Auto) Braxton # (Auto) Eos # (Auto) Baso # (Auto) Neutrophils % (Manual) Band Neutrophils % Lymphocytes % (Manual) Monocytes % (Manual) Platelet Estimate Hypochromasia (manual) Poikilocytosis (manual Anisocytosis (manual) Target Cells pO2 VBG pH VBG pCO2 VBG HCO3 VBG Total CO2 VBG O2 Sat (Calc) VBG Base Excess VBG Potassium Sodium Chloride Glucose Lactate FiO2 Crit Value Called To Crit Value Called By Crit Value Read Back Blood Gas Notified Time Potassium Carbon Dioxide Anion Gap BUN Creatinine Est GFR ( Amer) Est GFR (Non-Af Amer) POC Glucose (mg/dL) 356 H 301 H Random Glucose Hemoglobin A1c 10.9 H Calcium Total Bilirubin AST ALT Alkaline Phosphatase Total Protein Albumin Globulin Albumin/Globulin Ratio Venous Blood Potassium Urine Color Urine Clarity Urine pH Ur Specific [place] Urine Protein Urine Glucose (UA) Urine Ketones Urine Blood Urine Nitrate Urine Bilirubin Urine Urobilinogen Ur Leukocyte Esterase Urine WBC (Auto) Urine RBC (Auto) Ur Squamous Epith Cells Urine Bacteria Hyaline Casts Urine Opiates Screen Urine Methadone Screen Ur Barbiturates Screen Ur Phencyclidine Scrn Ur Amphetamines Screen U Benzodiazepines Scrn U Oth Cocaine Metabols U Cannabinoids Screen Alcohol, Quantitative B-Hydroxybutyrate Influenza Typ A,B (EIA) - Imaging and Cardiology Chest x-ray Status: Report reviewed by me (NO ACTIVE DISEASE) Assessment & Plan (1) Sepsis associated hypotension Assessment and Plan: PANCULTURES ESR,CRP. ATYPICAL TITERS. RAPID INFLUENZA ANTIGEN TEST INFLUENZA A AND B ANTIBODY. LDH. MRSA SCREEN. START iv ROCEPHIN 1 G EVERY 12 HOURLY 08/17/18. START PO tAMIFLU 75 MG BY MOUTH TWICE A DAY X 5DAYS 08/17/17 ( 1 dose tonight ) PATIENT GOT ONE DOSE OF VANCOMYCIN 1 G IN THE ER. AND ONE DOSE OF zOSYN 3.375 G IN THE ER. F/U LFTS. CBC with differential in a.m.. DROPLET PRECAUTIONS FOR NOW. Status: Acute (2) Hyperpyrexia Assessment and Plan: SEPTIC WORKUP IN PROGRESS PATIENT ON VASOPRESSORS. IV FLUIDS PER DIRECTOR OF LAND/PMD. Status: Acute (3) Diabetes mellitus Assessment and Plan: PATIENT RECENTLY DIAGNOSED WITH NEW ONSET OF DIABETES -MELLITUS. HGA1-C 10.6 BS 377 B-HYDROXYBUTYRATE 1.40 HIGH W/U IN PROGRESS. ADEQUATE CONTROL OF SUGARS IV FLUIDS PER DIRECTOR OF LAND. Status: Acute (4) Weight loss Assessment and Plan: ETIOLOGY OF WEIGHT LOSS NOT CLEAR. CONSIDER CT OF THE CHEST AND ABDOMEN /PELVIS R/O LYMPHADENOPATHY VS OCCULT MALIGNANCY. STOOLS FOR OCCULT BLOOD. Status: Acute
[2018-08-17] MEDS ORDERED: Sodium Chloride 0.9% 1,000 ML ONE (21:20)
[2018-08-18] MEDS: (Novolin R) Insulin Human Regular 100 units/ml vial SC SCH ×5 (00:10→22:25)
[2018-08-18] MEDS ORDERED: (Novolin R) Insulin Human Regular 100 units/ml vial ONE (00:20)
[2018-08-18] MEDS ORDERED: cefTRIAXone 1 gm 1 GM/100 ML BAG IVPB ONE (00:21)
[2018-08-18] MEDS: cefTRIAXone IV 1 gm in Dextros 50 ML IVPB SCH ×2 (00:27→10:57)
[2018-08-18 05:57] LABS: BASO % 0.1 % (0.0-2.0); HEMOGLOBIN 8.4 g/dL (12.0-18.0); LYMPH % 3.8 % (20.0-40.0); MEAN CELL VOLUME 88.5 fL (80.0-94.0); MEAN CORPUSCULAR HEMOGLOBIN 28.1 pg (27.0-31.0); MEAN CORPUSCULAR HGB CONC 31.7 g/dL (33.0-37.0); MONO # 1.2 K/uL (0.0-0.8); MONO % 4.5 % (0.0-10.0); NEUT # 23.7 K/uL (1.8-7.0); NEUT % 91.6 % (50.0-75.0); PLATELET COUNT 271 K/uL (130-400); RED CELL DISTRIBUTION WIDTH 13.9 % (11.5-14.5); WHITE BLOOD COUNT 25.9 K/uL (4.8-10.8)
[2018-08-18 06:17] LABS: ALB/GLOB RATIO 0.8 (1.0-2.1); ALBUMIN 2.2 g/dL (3.5-5.0); ALT/SGPT 266 U/L (21-72); AST/SGOT 530 U/L (17-59); BLOOD UREA NITROGEN 17 mg/dL (9-20); CALCIUM 7.6 mg/dl (8.6-10.4); GFR NON-AFRICAN AMERICAN > 60
[2018-08-18] MEDS ORDERED: Sodium Chloride 0.9% 1,000 ML IV SCH (06:45)
[2018-08-18 08:15] LABS: BANDS 29 % (0-2); LYMPHOCYTE 5 % (20-40); MONOCYTE 4 % (0-10); NEUTROPHIL 61 % (50-75); PLATELET ESTIMATE NORMAL (NORMAL); REACTIVE LYMPHOCYTES 1 % (0-0); TOTAL CELLS COUNTED 100
[2018-08-18 08:16] LABS: ANISOCYTOSIS SLIGHT; POLYCHROMIC SLIGHT
[2018-08-18 08:17] LABS: GIANT PLATELETS PRESENT; LARGE PLATELETS PRESENT
[2018-08-18 08:18] LABS: HYPOCHROMIC SLIGHT
[2018-08-18 08:51] LABS: ERYTHROCYTE SEDIMENTATION RATE 30 mm/hr (0-15)
--- NOTE | 2018-08-18 09:26 | RAD ---
HISTORY: post right IJ central line placement COMPARISON: Chest x-ray performed 08/17/18 at 1539 hr TECHNIQUE: Chest, one view. FINDINGS: Right IJ approach central venous catheter extends to the SVC. LUNGS: Increased lucencies especially within the bilateral upper lung dean compatible with underlying emphysema. No focal consolidation. Please note that chest x-ray has limited sensitivity for the detection of pulmonary masses. PLEURA: No significant pleural effusion identified. No definite pneumothorax . CARDIOVASCULAR: Heart size appears within normal limits. No significant atherosclerotic calcification present. OSSEOUS STRUCTURES: Degenerative changes of the spine. Acromioclavicular arthropathy. VISUALIZED UPPER ABDOMEN: Unremarkable. OTHER FINDINGS: None. IMPRESSION: Right IJ approach central venous catheter extends the SVC. No definite pneumothorax.
--- NOTE | 2018-08-18 10:40 | CP.CCUPN ---
CCU Subjective - Physician Review Events Since Last Encounter (Free Text): 08/18/18 10:38 pt is a 58-year-old male with a history of long-standing diabetes and also chronic smoker noncompliance with medication, admitted to the hospital with acute illness. Patient was having weakness, hypotension in the emergency room also had a fever and code sepsis called patient given intravenous IV fluid antibiotic started now feeling slightly better. Still pressure is on the low side. Blood sugar is uncontrolled at this time. So far the cultures are nonspecific, patient had a gram-positive cocci likely coagulase-negative staph aureus. On examination: He is in no distress. Comfortable. Chest good air entry Regular HSl Nontender abdomen. Extremities no pedal edema Patient has had no skin lesions Labs reviewed X-ray of the chest questionable right midlung infiltrate changes noted Labs showing evidence of elevated liver enzymes. Patient is currently on Rocephin Assessment and recommendation: 58-year-old male now admitted to the hospital with severe sepsis. The source is unclear. We will get a sonogram. CAT scan of the chest. HIV testing ordered on antibiotic. Vancomycin ordered we will discuss with infectious disease. Continue with IV fluid currently on Levophed low-dose. It was a monitor and will follow the patient CCU Objective - Vital Signs / Intake & Output Vital Signs (Last 4 hours): Vital Signs Pulse Resp BP Pulse Ox 08/18/18 08:00 71 19 93/63 L 98 08/18/18 07:00 69 20 108/71 98 Intake and Output (Last 8hrs): Intake & Output 08/17/18 08/18/18 08/18/18 22:59 06:59 14:59 Intake Total 252.9 165 Output Total 500 0 Balance -247.1 165 Weight 137 lb 9.6 oz Intake: IV 177.9 Intake, IV Amount 75 165 Right Medial Port 150 Internal Jugular Right Proximal Port 75 15 Internal Jugular Output: Urine 500 0 Urine, Voided 500 0 - Medications Active Medications: Active Medications Generic Name Dose Route Start Last Admin Trade Name Freq PRN Reason Stop Dose Admin Acetaminophen 650 mg 08/17/18 18:26 Tylenol 325mg Tab PO Q6 PRN Fever >100.4 F Heparin Sodium (Porcine) 5,000 units 08/17/18 22:00 08/17/18 22:30 Heparin SC 5,000 units Q12 EDER Administration Norepinephrine Bitartrate 4 mg 254 mls @ 15.24 mls/hr 08/17/18 18:26 08/18/18 06:27 / Dextrose IV 2 mcg/min .[id number] PRN 7.62 mls/hr TITRATE PER MD ORDER Titration Protocol 4 MCG/MIN Ceftriaxone Sodium 50 mls @ 100 mls/hr 08/18/18 00:00 08/18/18 00:27 Rocephin Iv 1 Gm Duplex IVPB 100 mls/hr DAILY EDER Administration Protocol Vancomycin HCl 1,000 mg/ 250 mls @ 166.6 mls/hr 08/18/18 10:45 Sodium Chloride IVPB Q12H EDER Protocol Sodium Chloride 1,000 mls @ 75 mls/hr 08/18/18 10:34 Sodium Chloride 0.9% IV .[id number] EDER Insulin Glargine 15 unit 08/18/18 22:00 Lantus SC HS EDER Insulin Human Regular 0 unit 08/17/18 22:00 08/18/18 06:41 Novolin R SC 10 unit ACHS EDER Administration Protocol Oseltamivir Phosphate 75 mg 08/17/18 20:44 08/17/18 21:15 Tamiflu Cap PO 08/22/18 20:43 75 mg BID EDER Administration Protocol - Patient Studies Lab Studies: Microbiology Studies 08/17/18 15:10 S.aureus & Coag-Neg Staph PNA FISH - Final Blood-Venous TEST NOT PERFORMED Blood Culture - Preliminary Gram Positive Cocci Gram Stain - Final 08/17/18 16:00 Gram Stain - Final Blood-Venous Lab Studies 08/18/18 08/18/18 08/18/18 Range/Units 05:49 05:49 00:14 WBC 25.9 H D (4.8-10.8) K/uL RBC 3.00 L (4.40-5.90) Mil/uL Hgb 8.4 L (12.0-18.0) g/dL Hct 26.6 L (35.0-51.0) % MCV 88.5 (80.0-94.0) fL MCH 28.1 (27.0-31.0) pg MCHC 31.7 L (33.0-37.0) g/dL RDW 13.9 (11.5-14.5) % Plt Count 271 (130-400) K/uL MPV 8.0 (7.2-11.7) fL Neut % (Auto) 91.6 H (50.0-75.0) % Lymph % (Auto) 3.8 L (20.0-40.0) % [place] % (Auto) 4.5 (0.0-10.0) % Eos % (Auto) 0.0 (0.0-4.0) % Baso % (Auto) 0.1 (0.0-2.0) % Neut # (Auto) 23.7 H (1.8-7.0) K/uL Lymph # (Auto) 1.0 (1.0-4.3) K/uL [place] # (Auto) 1.2 H (0.0-0.8) K/uL Eos # (Auto) 0.0 (0.0-0.7) K/uL Baso # (Auto) 0.0 (0.0-0.2) K/uL Neutrophils % (Manual) 61 (50-75) % Band Neutrophils % 29 H* (0-2) % Lymphocytes % (Manual) 5 L (20-40) % Reactive Lymphs % 1 H (0-0) % Monocytes % (Manual) 4 (0-10) % Platelet Estimate Normal (NORMAL) Large Platelets Present Giant Platelets Present Polychromasia Slight Hypochromasia (manual) Slight Poikilocytosis (manual Anisocytosis (manual) Slight Target Cells ESR 30 H (0-15) mm/hr pO2 (30-55) mm/Hg VBG pH (7.32-7.43) VBG pCO2 (40-60) mmHg VBG HCO3 mmol/L VBG Total CO2 (22-28) mmol/L VBG O2 Sat (Calc) (40-65) % VBG Base Excess (0.0-2.0) mmol/L VBG Potassium (3.6-5.2) mmol/L Sodium 131 L (132-148) mmol/l Chloride 98 (98-107) mmol/L Glucose (75-110) mg/dl Lactate (0.7-2.1) mmol/L FiO2 % Crit Value Called To Crit Value Called By Crit Value Read Back Blood Gas Notified Time Potassium 4.2 (3.6-5.2) mmol/L Carbon Dioxide 26 (22-30) mmol/L Anion Gap 11 (10-20) BUN 17 (9-20) mg/dL Creatinine 0.8 (0.8-1.5) mg/dL Est GFR ( Amer) > 60 Est GFR (Non-Af Amer) > 60 POC Glucose (mg/dL) 365 H (65-110) mg/dL Random Glucose 417 H* (75-110) mg/dL Hemoglobin A1c (4.2-6.5) % Calcium 7.6 L (8.6-10.4) mg/dl Phosphorus 4.2 (2.5-4.5) mg/dL Magnesium 1.8 (1.6-2.3) mg/dL Total Bilirubin 0.8 (0.2-1.3) mg/dL AST 530 H D (17-59) U/L ALT 266 H D (21-72) U/L Alkaline Phosphatase 97 (38-126) U/L Lactate Dehydrogenase 1704 H (313-618) U/L Total Protein 5.0 L (6.3-8.3) g/dL Albumin 2.2 L D (3.5-5.0) g/dL Globulin 2.7 (2.2-3.9) gm/dL Albumin/Globulin Ratio 0.8 L (1.0-2.1) Procalcitonin (0.19-0.49) NG/ML Venous Blood Potassium (3.6-5.2) mmol/L Urine Color (YELLOW) Urine Clarity (Clear) Urine pH (5.0-8.0) Ur Specific [place] (1.003-1.030) Urine Protein (NEGATIVE) mg/dL Urine Glucose (UA) (Normal) mg/dL Urine Ketones (NEGATIVE) mg/dL Urine Blood (NEGATIVE) Urine Nitrate (NEGATIVE) Urine Bilirubin (NEGATIVE) Urine Urobilinogen (0.2-1.0) mg/dL Ur Leukocyte Esterase (Negative) Fausto/uL Urine WBC (Auto) (0-5) /hpf Urine RBC (Auto) (0-3) /hpf Ur Squamous Epith Cells (0-5) /hpf Urine Bacteria (<OCC) Hyaline Casts (0-2) /lpf Urine Opiates Screen (NEGATIVE) Urine Methadone Screen (NEGATIVE) Ur Barbiturates Screen (NEGATIVE) Ur Phencyclidine Scrn (NEGATIVE) Ur Amphetamines Screen (NEGATIVE) U Benzodiazepines Scrn (NEGATIVE) U Oth Cocaine Metabols (NEGATIVE) U Cannabinoids Screen (NEGATIVE) Alcohol, Quantitative (0-10) mg/dl B-Hydroxybutyrate (0.02-0.27) mM Influenza Typ A,B (EIA) (NEGATIVE) 08/17/18 08/17/18 08/17/18 Range/Units 19:35 19:30 18:36 WBC (4.8-10.8) K/uL RBC (4.40-5.90) Mil/uL Hgb (12.0-18.0) g/dL Hct (35.0-51.0) % MCV (80.0-94.0) fL MCH (27.0-31.0) pg MCHC (33.0-37.0) g/dL RDW (11.5-14.5) % Plt Count (130-400) K/uL MPV (7.2-11.7) fL Neut % (Auto) (50.0-75.0) % Lymph % (Auto) (20.0-40.0) % [place] % (Auto) (0.0-10.0) % Eos % (Auto) (0.0-4.0) % Baso % (Auto) (0.0-2.0) % Neut # (Auto) (1.8-7.0) K/uL Lymph # (Auto) (1.0-4.3) K/uL [place] # (Auto) (0.0-0.8) K/uL Eos # (Auto) (0.0-0.7) K/uL Baso # (Auto) (0.0-0.2) K/uL Neutrophils % (Manual) (50-75) % Band Neutrophils % (0-2) % Lymphocytes % (Manual) (20-40) % Reactive Lymphs % (0-0) % Monocytes % (Manual) (0-10) % Platelet Estimate (NORMAL) Large Platelets Giant Platelets Polychromasia Hypochromasia (manual) Poikilocytosis (manual Anisocytosis (manual) Target Cells ESR (0-15) mm/hr pO2 (30-55) mm/Hg VBG pH (7.32-7.43) VBG pCO2 (40-60) mmHg VBG HCO3 mmol/L VBG Total CO2 (22-28) mmol/L VBG O2 Sat (Calc) (40-65) % VBG Base Excess (0.0-2.0) mmol/L VBG Potassium (3.6-5.2) mmol/L Sodium (132-148) mmol/l Chloride (98-107) mmol/L Glucose (75-110) mg/dl Lactate (0.7-2.1) mmol/L FiO2 % Crit Value Called To Crit Value Called By Crit Value Read Back Blood Gas Notified Time Potassium (3.6-5.2) mmol/L Carbon Dioxide (22-30) mmol/L Anion Gap (10-20) BUN (9-20) mg/dL Creatinine (0.8-1.5) mg/dL Est GFR ( Amer) Est GFR (Non-Af Amer) POC Glucose (mg/dL) 301 H (65-110) mg/dL Random Glucose (75-110) mg/dL Hemoglobin A1c 10.9 H (4.2-6.5) % Calcium (8.6-10.4) mg/dl Phosphorus (2.5-4.5) mg/dL Magnesium (1.6-2.3) mg/dL Total Bilirubin (0.2-1.3) mg/dL AST (17-59) U/L ALT (21-72) U/L Alkaline Phosphatase (38-126) U/L Lactate Dehydrogenase (313-618) U/L Total Protein (6.3-8.3) g/dL Albumin (3.5-5.0) g/dL Globulin (2.2-3.9) gm/dL Albumin/Globulin Ratio (1.0-2.1) Procalcitonin 63.50 H (0.19-0.49) NG/ML Venous Blood Potassium (3.6-5.2) mmol/L Urine Color (YELLOW) Urine Clarity (Clear) Urine pH (5.0-8.0) Ur Specific [place] (1.003-1.030) Urine Protein (NEGATIVE) mg/dL Urine Glucose (UA) (Normal) mg/dL Urine Ketones (NEGATIVE) mg/dL Urine Blood (NEGATIVE) Urine Nitrate (NEGATIVE) Urine Bilirubin (NEGATIVE) Urine Urobilinogen (0.2-1.0) mg/dL Ur Leukocyte Esterase (Negative) Fausto/uL Urine WBC (Auto) (0-5) /hpf Urine RBC (Auto) (0-3) /hpf Ur Squamous Epith Cells (0-5) /hpf Urine Bacteria (<OCC) Hyaline Casts (0-2) /lpf Urine Opiates Screen (NEGATIVE) Urine Methadone Screen (NEGATIVE) Ur Barbiturates Screen (NEGATIVE) Ur Phencyclidine Scrn (NEGATIVE) Ur Amphetamines Screen (NEGATIVE) U Benzodiazepines Scrn (NEGATIVE) U Oth Cocaine Metabols (NEGATIVE) U Cannabinoids Screen (NEGATIVE) Alcohol, Quantitative (0-10) mg/dl B-Hydroxybutyrate (0.02-0.27) mM Influenza Typ A,B (EIA) (NEGATIVE) 08/17/18 08/17/18 08/17/18 Range/Units 18:20 18:05 18:04 WBC (4.8-10.8) K/uL RBC (4.40-5.90) Mil/uL Hgb (12.0-18.0) g/dL Hct (35.0-51.0) % MCV (80.0-94.0) fL MCH (27.0-31.0) pg MCHC (33.0-37.0) g/dL RDW (11.5-14.5) % Plt Count (130-400) K/uL MPV (7.2-11.7) fL Neut % (Auto) (50.0-75.0) % Lymph % (Auto) (20.0-40.0) % [place] % (Auto) (0.0-10.0) % Eos % (Auto) (0.0-4.0) % Baso % (Auto) (0.0-2.0) % Neut # (Auto) (1.8-7.0) K/uL Lymph # (Auto) (1.0-4.3) K/uL [place] # (Auto) (0.0-0.8) K/uL Eos # (Auto) (0.0-0.7) K/uL Baso # (Auto) (0.0-0.2) K/uL Neutrophils % (Manual) (50-75) % Band Neutrophils % (0-2) % Lymphocytes % (Manual) (20-40) % Reactive Lymphs % (0-0) % Monocytes % (Manual) (0-10) % Platelet Estimate (NORMAL) Large Platelets Giant Platelets Polychromasia Hypochromasia (manual) Poikilocytosis (manual Anisocytosis (manual) Target Cells ESR (0-15) mm/hr pO2 23 L (30-55) mm/Hg VBG pH 7.45 H (7.32-7.43) VBG pCO2 36 L (40-60) mmHg VBG HCO3 24.5 mmol/L VBG Total CO2 26.1 (22-28) mmol/L VBG O2 Sat (Calc) 58.8 (40-65) % VBG Base Excess 1.3 (0.0-2.0) mmol/L VBG Potassium 3.8 (3.6-5.2) mmol/L Sodium 131.0 L (132-148) mmol/l Chloride 99.0 (98-107) mmol/L Glucose 366 H (75-110) mg/dl Lactate 3.3 H (0.7-2.1) mmol/L FiO2 21.0 % Crit Value Called To Crit Value Called By Crit Value Read Back Blood Gas Notified Time Potassium (3.6-5.2) mmol/L Carbon Dioxide (22-30) mmol/L Anion Gap (10-20) BUN (9-20) mg/dL Creatinine (0.8-1.5) mg/dL Est GFR ( Amer) Est GFR (Non-Af Amer) POC Glucose (mg/dL) 356 H (65-110) mg/dL Random Glucose (75-110) mg/dL Hemoglobin A1c (4.2-6.5) % Calcium (8.6-10.4) mg/dl Phosphorus (2.5-4.5) mg/dL Magnesium (1.6-2.3) mg/dL Total Bilirubin (0.2-1.3) mg/dL AST (17-59) U/L ALT (21-72) U/L Alkaline Phosphatase (38-126) U/L Lactate Dehydrogenase (313-618) U/L Total Protein (6.3-8.3) g/dL Albumin (3.5-5.0) g/dL Globulin (2.2-3.9) gm/dL Albumin/Globulin Ratio (1.0-2.1) Procalcitonin (0.19-0.49) NG/ML Venous Blood Potassium 3.8 (3.6-5.2) mmol/L Urine Color (YELLOW) Urine Clarity (Clear) Urine pH (5.0-8.0) Ur Specific [place] (1.003-1.030) Urine Protein (NEGATIVE) mg/dL Urine Glucose (UA) (Normal) mg/dL Urine Ketones (NEGATIVE) mg/dL Urine Blood (NEGATIVE) Urine Nitrate (NEGATIVE) Urine Bilirubin (NEGATIVE) Urine Urobilinogen (0.2-1.0) mg/dL Ur Leukocyte Esterase (Negative) Fausto/uL Urine WBC (Auto) (0-5) /hpf Urine RBC (Auto) (0-3) /hpf Ur Squamous Epith Cells (0-5) /hpf Urine Bacteria (<OCC) Hyaline Casts (0-2) /lpf Urine Opiates Screen Negative (NEGATIVE) Urine Methadone Screen Negative (NEGATIVE) Ur Barbiturates Screen Negative (NEGATIVE) Ur Phencyclidine Scrn Negative (NEGATIVE) Ur Amphetamines Screen Negative (NEGATIVE) U Benzodiazepines Scrn Negative (NEGATIVE) U Oth Cocaine Metabols Negative (NEGATIVE) U Cannabinoids Screen Negative (NEGATIVE) Alcohol, Quantitative (0-10) mg/dl B-Hydroxybutyrate (0.02-0.27) mM Influenza Typ A,B (EIA) (NEGATIVE) 08/17/18 08/17/18 08/17/18 Range/Units 16:26 16:21 16:02 WBC (4.8-10.8) K/uL RBC (4.40-5.90) Mil/uL Hgb (12.0-18.0) g/dL Hct (35.0-51.0) % MCV (80.0-94.0) fL MCH (27.0-31.0) pg MCHC (33.0-37.0) g/dL RDW (11.5-14.5) % Plt Count (130-400) K/uL MPV (7.2-11.7) fL Neut % (Auto) (50.0-75.0) % Lymph % (Auto) (20.0-40.0) % [place] % (Auto) (0.0-10.0) % Eos % (Auto) (0.0-4.0) % Baso % (Auto) (0.0-2.0) % Neut # (Auto) (1.8-7.0) K/uL Lymph # (Auto) (1.0-4.3) K/uL [place] # (Auto) (0.0-0.8) K/uL Eos # (Auto) (0.0-0.7) K/uL Baso # (Auto) (0.0-0.2) K/uL Neutrophils % (Manual) (50-75) % Band Neutrophils % (0-2) % Lymphocytes % (Manual) (20-40) % Reactive Lymphs % (0-0) % Monocytes % (Manual) (0-10) % Platelet Estimate (NORMAL) Large Platelets Giant Platelets Polychromasia Hypochromasia (manual) Poikilocytosis (manual Anisocytosis (manual) Target Cells ESR (0-15) mm/hr pO2 (30-55) mm/Hg VBG pH (7.32-7.43) VBG pCO2 (40-60) mmHg VBG HCO3 mmol/L VBG Total CO2 (22-28) mmol/L VBG O2 Sat (Calc) (40-65) % VBG Base Excess (0.0-2.0) mmol/L VBG Potassium (3.6-5.2) mmol/L Sodium (132-148) mmol/l Chloride (98-107) mmol/L Glucose (75-110) mg/dl Lactate (0.7-2.1) mmol/L FiO2 % Crit Value Called To Crit Value Called By Crit Value Read Back Blood Gas Notified Time Potassium (3.6-5.2) mmol/L Carbon Dioxide (22-30) mmol/L Anion Gap (10-20) BUN (9-20) mg/dL Creatinine (0.8-1.5) mg/dL Est GFR ( Amer) Est GFR (Non-Af Amer) POC Glucose (mg/dL) (65-110) mg/dL Random Glucose (75-110) mg/dL Hemoglobin A1c (4.2-6.5) % Calcium (8.6-10.4) mg/dl Phosphorus (2.5-4.5) mg/dL Magnesium (1.6-2.3) mg/dL Total Bilirubin (0.2-1.3) mg/dL AST (17-59) U/L ALT (21-72) U/L Alkaline Phosphatase (38-126) U/L Lactate Dehydrogenase (313-618) U/L Total Protein (6.3-8.3) g/dL Albumin (3.5-5.0) g/dL Globulin (2.2-3.9) gm/dL Albumin/Globulin Ratio (1.0-2.1) Procalcitonin (0.19-0.49) NG/ML Venous Blood Potassium (3.6-5.2) mmol/L Urine Color Yellow (YELLOW) Urine Clarity Hazy (Clear) Urine pH 6.0 (5.0-8.0) Ur Specific [place] 1.011 (1.003-1.030) Urine Protein 2+ H (NEGATIVE) mg/dL Urine Glucose (UA) 3+ H (Normal) mg/dL Urine Ketones 1+ H (NEGATIVE) mg/dL Urine Blood Negative (NEGATIVE) Urine Nitrate Negative (NEGATIVE) Urine Bilirubin Negative (NEGATIVE) Urine Urobilinogen 4.0 (0.2-1.0) mg/dL Ur Leukocyte Esterase Neg (Negative) Fausto/uL Urine WBC (Auto) 3 (0-5) /hpf Urine RBC (Auto) 2 (0-3) /hpf Ur Squamous Epith Cells < 1 (0-5) /hpf Urine Bacteria Rare (<OCC) Hyaline Casts >20 H (0-2) /lpf Urine Opiates Screen (NEGATIVE) Urine Methadone Screen (NEGATIVE) Ur Barbiturates Screen (NEGATIVE) Ur Phencyclidine Scrn (NEGATIVE) Ur Amphetamines Screen (NEGATIVE) U Benzodiazepines Scrn (NEGATIVE) U Oth Cocaine Metabols (NEGATIVE) U Cannabinoids Screen (NEGATIVE) Alcohol, Quantitative < 10 (0-10) mg/dl B-Hydroxybutyrate 1.40 H (0.02-0.27) mM Influenza Typ A,B (EIA) Negative for flu a/b (NEGATIVE) 08/17/18 08/17/18 08/17/18 Range/Units 15:27 15:27 15:25 WBC 5.2 (4.8-10.8) K/uL RBC 3.56 L (4.40-5.90) Mil/uL Hgb 10.1 L (12.0-18.0) g/dL Hct 31.2 L (35.0-51.0) % MCV 87.8 (80.0-94.0) fL MCH 28.5 (27.0-31.0) pg MCHC 32.4 L (33.0-37.0) g/dL RDW 13.7 (11.5-14.5) % Plt Count 329 (130-400) K/uL MPV 7.3 (7.2-11.7) fL Neut % (Auto) 96.4 H (50.0-75.0) % Lymph % (Auto) 2.4 L (20.0-40.0) % [place] % (Auto) 0.9 (0.0-10.0) % Eos % (Auto) 0.2 (0.0-4.0) % Baso % (Auto) 0.1 (0.0-2.0) % Neut # (Auto) 5.0 (1.8-7.0) K/uL Lymph # (Auto) 0.1 L (1.0-4.3) K/uL [place] # (Auto) 0.0 (0.0-0.8) K/uL Eos # (Auto) 0.0 (0.0-0.7) K/uL Baso # (Auto) 0.0 (0.0-0.2) K/uL Neutrophils % (Manual) 85 H (50-75) % Band Neutrophils % 10 H (0-2) % Lymphocytes % (Manual) 4 L (20-40) % Reactive Lymphs % (0-0) % Monocytes % (Manual) 1 (0-10) % Platelet Estimate Normal (NORMAL) Large Platelets Giant Platelets Polychromasia Hypochromasia (manual) Slight Poikilocytosis (manual Slight Anisocytosis (manual) Slight Target Cells Slight ESR (0-15) mm/hr pO2 18 L (30-55) mm/Hg VBG pH 7.49 H (7.32-7.43) VBG pCO2 36 L (40-60) mmHg VBG HCO3 26.4 mmol/L VBG Total CO2 28.5 H (22-28) mmol/L VBG O2 Sat (Calc) 46.5 (40-65) % VBG Base Excess 4.1 H (0.0-2.0) mmol/L VBG Potassium 4.2 (3.6-5.2) mmol/L Sodium 127 L 127.0 L (132-148) mmol/l Chloride 90 L 95.0 L (98-107) mmol/L Glucose 399 H (75-110) mg/dl Lactate 5.7 H* (0.7-2.1) mmol/L FiO2 21.0 % Crit Value Called To Armani iyer Crit Value Called By [facility] Crit Value Read Back Y Blood Gas Notified Time 1532 Potassium 4.3 (3.6-5.2) mmol/L Carbon Dioxide 27 (22-30) mmol/L Anion Gap 16 (10-20) BUN 12 (9-20) mg/dL Creatinine 0.8 (0.8-1.5) mg/dL Est GFR ( Amer) > 60 Est GFR (Non-Af Amer) > 60 POC Glucose (mg/dL) (65-110) mg/dL Random Glucose 377 H (75-110) mg/dL Hemoglobin A1c (4.2-6.5) % Calcium 8.8 (8.6-10.4) mg/dl Phosphorus (2.5-4.5) mg/dL Magnesium (1.6-2.3) mg/dL Total Bilirubin 0.8 (0.2-1.3) mg/dL AST 36 (17-59) U/L ALT 39 (21-72) U/L Alkaline Phosphatase 156 H (38-126) U/L Lactate Dehydrogenase (313-618) U/L Total Protein 6.0 L (6.3-8.3) g/dL Albumin 2.9 L (3.5-5.0) g/dL Globulin 3.1 (2.2-3.9) gm/dL Albumin/Globulin Ratio 1.0 (1.0-2.1) Procalcitonin (0.19-0.49) NG/ML Venous Blood Potassium 4.2 (3.6-5.2) mmol/L Urine Color (YELLOW) Urine Clarity (Clear) Urine pH (5.0-8.0) Ur Specific [place] (1.003-1.030) Urine Protein (NEGATIVE) mg/dL Urine Glucose (UA) (Normal) mg/dL Urine Ketones (NEGATIVE) mg/dL Urine Blood (NEGATIVE) Urine Nitrate (NEGATIVE) Urine Bilirubin (NEGATIVE) Urine Urobilinogen (0.2-1.0) mg/dL Ur Leukocyte Esterase (Negative) Fausto/uL Urine WBC (Auto) (0-5) /hpf Urine RBC (Auto) (0-3) /hpf Ur Squamous Epith Cells (0-5) /hpf Urine Bacteria (<OCC) Hyaline Casts (0-2) /lpf Urine Opiates Screen (NEGATIVE) Urine Methadone Screen (NEGATIVE) Ur Barbiturates Screen (NEGATIVE) Ur Phencyclidine Scrn (NEGATIVE) Ur Amphetamines Screen (NEGATIVE) U Benzodiazepines Scrn (NEGATIVE) U Oth Cocaine Metabols (NEGATIVE) U Cannabinoids Screen (NEGATIVE) Alcohol, Quantitative (0-10) mg/dl B-Hydroxybutyrate (0.02-0.27) mM Influenza Typ A,B (EIA) (NEGATIVE) 08/17/18 Range/Units 14:47 WBC (4.8-10.8) K/uL RBC (4.40-5.90) Mil/uL Hgb (12.0-18.0) g/dL Hct (35.0-51.0) % MCV (80.0-94.0) fL MCH (27.0-31.0) pg MCHC (33.0-37.0) g/dL RDW (11.5-14.5) % Plt Count (130-400) K/uL MPV (7.2-11.7) fL Neut % (Auto) (50.0-75.0) % Lymph % (Auto) (20.0-40.0) % [place] % (Auto) (0.0-10.0) % Eos % (Auto) (0.0-4.0) % Baso % (Auto) (0.0-2.0) % Neut # (Auto) (1.8-7.0) K/uL Lymph # (Auto) (1.0-4.3) K/uL [place] # (Auto) (0.0-0.8) K/uL Eos # (Auto) (0.0-0.7) K/uL Baso # (Auto) (0.0-0.2) K/uL Neutrophils % (Manual) (50-75) % Band Neutrophils % (0-2) % Lymphocytes % (Manual) (20-40) % Reactive Lymphs % (0-0) % Monocytes % (Manual) (0-10) % Platelet Estimate (NORMAL) Large Platelets Giant Platelets Polychromasia Hypochromasia (manual) Poikilocytosis (manual Anisocytosis (manual) Target Cells ESR (0-15) mm/hr pO2 (30-55) mm/Hg VBG pH (7.32-7.43) VBG pCO2 (40-60) mmHg VBG HCO3 mmol/L VBG Total CO2 (22-28) mmol/L VBG O2 Sat (Calc) (40-65) % VBG Base Excess (0.0-2.0) mmol/L VBG Potassium (3.6-5.2) mmol/L Sodium (132-148) mmol/l Chloride (98-107) mmol/L Glucose (75-110) mg/dl Lactate (0.7-2.1) mmol/L FiO2 % Crit Value Called To Crit Value Called By Crit Value Read Back Blood Gas Notified Time Potassium (3.6-5.2) mmol/L Carbon Dioxide (22-30) mmol/L Anion Gap (10-20) BUN (9-20) mg/dL Creatinine (0.8-1.5) mg/dL Est GFR ( Amer) Est GFR (Non-Af Amer) POC Glucose (mg/dL) 365 H (65-110) mg/dL Random Glucose (75-110) mg/dL Hemoglobin A1c (4.2-6.5) % Calcium (8.6-10.4) mg/dl Phosphorus (2.5-4.5) mg/dL Magnesium (1.6-2.3) mg/dL Total Bilirubin (0.2-1.3) mg/dL AST (17-59) U/L ALT (21-72) U/L Alkaline Phosphatase (38-126) U/L Lactate Dehydrogenase (313-618) U/L Total Protein (6.3-8.3) g/dL Albumin (3.5-5.0) g/dL Globulin (2.2-3.9) gm/dL Albumin/Globulin Ratio (1.0-2.1) Procalcitonin (0.19-0.49) NG/ML Venous Blood Potassium (3.6-5.2) mmol/L Urine Color (YELLOW) Urine Clarity (Clear) Urine pH (5.0-8.0) Ur Specific [place] (1.003-1.030) Urine Protein (NEGATIVE) mg/dL Urine Glucose (UA) (Normal) mg/dL Urine Ketones (NEGATIVE) mg/dL Urine Blood (NEGATIVE) Urine Nitrate (NEGATIVE) Urine Bilirubin (NEGATIVE) Urine Urobilinogen (0.2-1.0) mg/dL Ur Leukocyte Esterase (Negative) Fausto/uL Urine WBC (Auto) (0-5) /hpf Urine RBC (Auto) (0-3) /hpf Ur Squamous Epith Cells (0-5) /hpf Urine Bacteria (<OCC) Hyaline Casts (0-2) /lpf Urine Opiates Screen (NEGATIVE) Urine Methadone Screen (NEGATIVE) Ur Barbiturates Screen (NEGATIVE) Ur Phencyclidine Scrn (NEGATIVE) Ur Amphetamines Screen (NEGATIVE) U Benzodiazepines Scrn (NEGATIVE) U Oth Cocaine Metabols (NEGATIVE) U Cannabinoids Screen (NEGATIVE) Alcohol, Quantitative (0-10) mg/dl B-Hydroxybutyrate (0.02-0.27) mM Influenza Typ A,B (EIA) (NEGATIVE) Laboratory Results - last 24 hr 08/17/18 08/17/18 08/17/18 14:47 15:25 15:27 WBC 5.2 RBC 3.56 L Hgb 10.1 L Hct 31.2 L MCV 87.8 MCH 28.5 MCHC 32.4 L RDW 13.7 Plt Count 329 MPV 7.3 Neut % (Auto) 96.4 H Lymph % (Auto) 2.4 L [place] % (Auto) 0.9 Eos % (Auto) 0.2 Baso % (Auto) 0.1 Neut # (Auto) 5.0 Lymph # (Auto) 0.1 L [place] # (Auto) 0.0 Eos # (Auto) 0.0 Baso # (Auto) 0.0 Neutrophils % (Manual) 85 H Band Neutrophils % 10 H Lymphocytes % (Manual) 4 L Reactive Lymphs % Monocytes % (Manual) 1 Platelet Estimate Normal Large Platelets Giant Platelets Polychromasia Hypochromasia (manual) Slight Poikilocytosis (manual Slight Anisocytosis (manual) Slight Target Cells Slight ESR pO2 18 L VBG pH 7.49 H VBG pCO2 36 L VBG HCO3 26.4 VBG Total CO2 28.5 H VBG O2 Sat (Calc) 46.5 VBG Base Excess 4.1 H VBG Potassium 4.2 Sodium 127.0 L Chloride 95.0 L Glucose 399 H Lactate 5.7 H* FiO2 21.0 Crit Value Called To Arm[facility] iyer Crit Value Called By [facility] Crit Value Read Back Y Blood Gas Notified Time 1532 Potassium Carbon Dioxide Anion Gap BUN Creatinine Est GFR ( Amer) Est GFR (Non-Af Amer) POC Glucose (mg/dL) 365 H Random Glucose Hemoglobin A1c Calcium Phosphorus Magnesium Total Bilirubin AST ALT Alkaline Phosphatase Lactate Dehydrogenase Total Protein Albumin Globulin Albumin/Globulin Ratio Procalcitonin Venous Blood Potassium 4.2 Urine Color Urine Clarity Urine pH Ur Specific [place] Urine Protein Urine Glucose (UA) Urine Ketones Urine Blood Urine Nitrate Urine Bilirubin Urine Urobilinogen Ur Leukocyte Esterase Urine WBC (Auto) Urine RBC (Auto) Ur Squamous Epith Cells Urine Bacteria Hyaline Casts Urine Opiates Screen Urine Methadone Screen Ur Barbiturates Screen Ur Phencyclidine Scrn Ur Amphetamines Screen U Benzodiazepines Scrn U Oth Cocaine Metabols U Cannabinoids Screen Alcohol, Quantitative B-Hydroxybutyrate Influenza Typ A,B (EIA) 08/17/18 08/17/18 08/17/18 15:27 16:02 16:21 WBC RBC Hgb Hct MCV MCH MCHC RDW Plt Count MPV Neut % (Auto) Lymph % (Auto) [place] % (Auto) Eos % (Auto) Baso % (Auto) Neut # (Auto) Lymph # (Auto) [place] # (Auto) Eos # (Auto) Baso # (Auto) Neutrophils % (Manual) Band Neutrophils % Lymphocytes % (Manual) Reactive Lymphs % Monocytes % (Manual) Platelet Estimate Large Platelets Giant Platelets Polychromasia Hypochromasia (manual) Poikilocytosis (manual Anisocytosis (manual) Target Cells ESR pO2 VBG pH VBG pCO2 VBG HCO3 VBG Total CO2 VBG O2 Sat (Calc) VBG Base Excess VBG Potassium Sodium 127 L Chloride 90 L Glucose Lactate FiO2 Crit Value Called To Crit Value Called By Crit Value Read Back Blood Gas Notified Time Potassium 4.3 Carbon Dioxide 27 Anion Gap 16 BUN 12 Creatinine 0.8 Est GFR ( Amer) > 60 Est GFR (Non-Af Amer) > 60 POC Glucose (mg/dL) Random Glucose 377 H Hemoglobin A1c Calcium 8.8 Phosphorus Magnesium Total Bilirubin 0.8 AST 36 ALT 39 Alkaline Phosphatase 156 H Lactate Dehydrogenase Total Protein 6.0 L Albumin 2.9 L Globulin 3.1 Albumin/Globulin Ratio 1.0 Procalcitonin Venous Blood Potassium Urine Color Yellow Urine Clarity Hazy Urine pH 6.0 Ur Specific [place] 1.011 Urine Protein 2+ H Urine Glucose (UA) 3+ H Urine Ketones 1+ H Urine Blood Negative Urine Nitrate Negative Urine Bilirubin Negative Urine Urobilinogen 4.0 Ur Leukocyte Esterase Neg Urine WBC (Auto) 3 Urine RBC (Auto) 2 Ur Squamous Epith Cells < 1 Urine Bacteria Rare Hyaline Casts >20 H Urine Opiates Screen Urine Methadone Screen Ur Barbiturates Screen Ur Phencyclidine Scrn Ur Amphetamines Screen U Benzodiazepines Scrn U Oth Cocaine Metabols U Cannabinoids Screen Alcohol, Quantitative B-Hydroxybutyrate Influenza Typ A,B (EIA) Negative for flu a/b 08/17/18 08/17/18 08/17/18 16:26 18:04 18:05 WBC RBC Hgb Hct MCV MCH MCHC RDW Plt Count MPV Neut % (Auto) Lymph % (Auto) [place] % (Auto) Eos % (Auto) Baso % (Auto) Neut # (Auto) Lymph # (Auto) [place] # (Auto) Eos # (Auto) Baso # (Auto) Neutrophils % (Manual) Band Neutrophils % Lymphocytes % (Manual) Reactive Lymphs % Monocytes % (Manual) Platelet Estimate Large Platelets Giant Platelets Polychromasia Hypochromasia (manual) Poikilocytosis (manual Anisocytosis (manual) Target Cells ESR pO2 23 L VBG pH 7.45 H VBG pCO2 36 L VBG HCO3 24.5 VBG Total CO2 26.1 VBG O2 Sat (Calc) 58.8 VBG Base Excess 1.3 VBG Potassium 3.8 Sodium 131.0 L Chloride 99.0 Glucose 366 H Lactate 3.3 H FiO2 21.0 Crit Value Called To Crit Value Called By Crit Value Read Back Blood Gas Notified Time Potassium Carbon Dioxide Anion Gap BUN Creatinine Est GFR ( Amer) Est GFR (Non-Af Amer) POC Glucose (mg/dL) Random Glucose Hemoglobin A1c Calcium Phosphorus Magnesium Total Bilirubin AST ALT Alkaline Phosphatase Lactate Dehydrogenase Total Protein Albumin Globulin Albumin/Globulin Ratio Procalcitonin Venous Blood Potassium 3.8 Urine Color Urine Clarity Urine pH Ur Specific [place] Urine Protein Urine Glucose (UA) Urine Ketones Urine Blood Urine Nitrate Urine Bilirubin Urine Urobilinogen Ur Leukocyte Esterase Urine WBC (Auto) Urine RBC (Auto) Ur Squamous Epith Cells Urine Bacteria Hyaline Casts Urine Opiates Screen Negative Urine Methadone Screen Negative Ur Barbiturates Screen Negative Ur Phencyclidine Scrn Negative Ur Amphetamines Screen Negative U Benzodiazepines Scrn Negative U Oth Cocaine Metabols Negative U Cannabinoids Screen Negative Alcohol, Quantitative < 10 B-Hydroxybutyrate 1.40 H Influenza Typ A,B (EIA) 08/17/18 08/17/18 08/17/18 18:20 18:36 19:30 WBC RBC Hgb Hct MCV MCH MCHC RDW Plt Count MPV Neut % (Auto) Lymph % (Auto) [place] % (Auto) Eos % (Auto) Baso % (Auto) Neut # (Auto) Lymph # (Auto) [place] # (Auto) Eos # (Auto) Baso # (Auto) Neutrophils % (Manual) Band Neutrophils % Lymphocytes % (Manual) Reactive Lymphs % Monocytes % (Manual) Platelet Estimate Large Platelets Giant Platelets Polychromasia Hypochromasia (manual) Poikilocytosis (manual Anisocytosis (manual) Target Cells ESR pO2 VBG pH VBG pCO2 VBG HCO3 VBG Total CO2 VBG O2 Sat (Calc) VBG Base Excess VBG Potassium Sodium Chloride Glucose Lactate FiO2 Crit Value Called To Crit Value Called By Crit Value Read Back Blood Gas Notified Time Potassium Carbon Dioxide Anion Gap BUN Creatinine Est GFR ( Amer) Est GFR (Non-Af Amer) POC Glucose (mg/dL) 356 H Random Glucose Hemoglobin A1c 10.9 H Calcium Phosphorus Magnesium Total Bilirubin AST ALT Alkaline Phosphatase Lactate Dehydrogenase Total Protein Albumin Globulin Albumin/Globulin Ratio Procalcitonin 63.50 H Venous Blood Potassium Urine Color Urine Clarity Urine pH Ur Specific [place] Urine Protein Urine Glucose (UA) Urine Ketones Urine Blood Urine Nitrate Urine Bilirubin Urine Urobilinogen Ur Leukocyte Esterase Urine WBC (Auto) Urine RBC (Auto) Ur Squamous Epith Cells Urine Bacteria Hyaline Casts Urine Opiates Screen Urine Methadone Screen Ur Barbiturates Screen Ur Phencyclidine Scrn Ur Amphetamines Screen U Benzodiazepines Scrn U Oth Cocaine Metabols U Cannabinoids Screen Alcohol, Quantitative B-Hydroxybutyrate Influenza Typ A,B (EIA) 08/17/18 08/18/18 08/18/18 19:35 00:14 05:49 WBC 25.9 H D RBC 3.00 L Hgb 8.4 L Hct 26.6 L MCV 88.5 MCH 28.1 MCHC 31.7 L RDW 13.9 Plt Count 271 MPV 8.0 Neut % (Auto) 91.6 H Lymph % (Auto) 3.8 L [place] % (Auto) 4.5 Eos % (Auto) 0.0 Baso % (Auto) 0.1 Neut # (Auto) 23.7 H Lymph # (Auto) 1.0 [place] # (Auto) 1.2 H Eos # (Auto) 0.0 Baso # (Auto) 0.0 Neutrophils % (Manual) 61 Band Neutrophils % 29 H* Lymphocytes % (Manual) 5 L Reactive Lymphs % 1 H Monocytes % (Manual) 4 Platelet Estimate Normal Large Platelets Present Giant Platelets Present Polychromasia Slight Hypochromasia (manual) Slight Poikilocytosis (manual Anisocytosis (manual) Slight Target Cells ESR 30 H pO2 VBG pH VBG pCO2 VBG HCO3 VBG Total CO2 VBG O2 Sat (Calc) VBG Base Excess VBG Potassium Sodium Chloride Glucose Lactate FiO2 Crit Value Called To Crit Value Called By Crit Value Read Back Blood Gas Notified Time Potassium Carbon Dioxide Anion Gap BUN Creatinine Est GFR ( Amer) Est GFR (Non-Af Amer) POC Glucose (mg/dL) 301 H 365 H Random Glucose Hemoglobin A1c Calcium Phosphorus Magnesium Total Bilirubin AST ALT Alkaline Phosphatase Lactate Dehydrogenase Total Protein Albumin Globulin Albumin/Globulin Ratio Procalcitonin Venous Blood Potassium Urine Color Urine Clarity Urine pH Ur Specific [place] Urine Protein Urine Glucose (UA) Urine Ketones Urine Blood Urine Nitrate Urine Bilirubin Urine Urobilinogen Ur Leukocyte Esterase Urine WBC (Auto) Urine RBC (Auto) Ur Squamous Epith Cells Urine Bacteria Hyaline Casts Urine Opiates Screen Urine Methadone Screen Ur Barbiturates Screen Ur Phencyclidine Scrn Ur Amphetamines Screen U Benzodiazepines Scrn U Oth Cocaine Metabols U Cannabinoids Screen Alcohol, Quantitative B-Hydroxybutyrate Influenza Typ A,B (EIA) 08/18/18 05:49 WBC RBC Hgb Hct MCV MCH MCHC RDW Plt Count MPV Neut % (Auto) Lymph % (Auto) [place] % (Auto) Eos % (Auto) Baso % (Auto) Neut # (Auto) Lymph # (Auto) [place] # (Auto) Eos # (Auto) Baso # (Auto) Neutrophils % (Manual) Band Neutrophils % Lymphocytes % (Manual) Reactive Lymphs % Monocytes % (Manual) Platelet Estimate Large Platelets Giant Platelets Polychromasia Hypochromasia (manual) Poikilocytosis (manual Anisocytosis (manual) Target Cells ESR pO2 VBG pH VBG pCO2 VBG HCO3 VBG Total CO2 VBG O2 Sat (Calc) VBG Base Excess VBG Potassium Sodium 131 L Chloride 98 Glucose Lactate FiO2 Crit Value Called To Crit Value Called By Crit Value Read Back Blood Gas Notified Time Potassium 4.2 Carbon Dioxide 26 Anion Gap 11 BUN 17 Creatinine 0.8 Est GFR ( Amer) > 60 Est GFR (Non-Af Amer) > 60 POC Glucose (mg/dL) Random Glucose 417 H* Hemoglobin A1c Calcium 7.6 L Phosphorus 4.2 Magnesium 1.8 Total Bilirubin 0.8 AST 530 H D ALT 266 H D Alkaline Phosphatase 97 Lactate Dehydrogenase 1704 H Total Protein 5.0 L Albumin 2.2 L D Globulin 2.7 Albumin/Globulin Ratio 0.8 L Procalcitonin Venous Blood Potassium Urine Color Urine Clarity Urine pH Ur Specific [place] Urine Protein Urine Glucose (UA) Urine Ketones Urine Blood Urine Nitrate Urine Bilirubin Urine Urobilinogen Ur Leukocyte Esterase Urine WBC (Auto) Urine RBC (Auto) Ur Squamous Epith Cells Urine Bacteria Hyaline Casts Urine Opiates Screen Urine Methadone Screen Ur Barbiturates Screen Ur Phencyclidine Scrn Ur Amphetamines Screen U Benzodiazepines Scrn U Oth Cocaine Metabols U Cannabinoids Screen Alcohol, Quantitative B-Hydroxybutyrate Influenza Typ A,B (EIA) Radiology Impressions: Radiology Impressions Chest X-Ray 08/17/18 15:23 IMPRESSION: No active pulmonary disease. Chest X-Ray 08/17/18 22:31 IMPRESSION: Right IJ approach central venous catheter extends the SVC. No definite pneumothorax. Fingerstick Blood Sugar Results: 411 Critical Care Progress Note - Nutrition Nutrition: Nutrition Category Date Time Status Diabetic [Consistent Carbohydrate] [DIET] Diets 08/17/18 Dinner Active
[2018-08-18] MEDS: Meropenem 500 MG in Sodium Chloride 0.9% 100 ML IVPB SCH ×2 (12:24→20:49)
[2018-08-18 12:32] LABS: HEPATITIS B SURFACE AG Negative (NEGATIVE)
[2018-08-18 12:37] LABS: HEPATITIS A IGM NEGATIVE (NEGATIVE); HEPATITIS B CORE AB NEGATIVE (NEGATIVE)
[2018-08-18 12:49] LABS: HEPATITIS C ANTIBODY NEGATIVE (NEGATIVE)
--- NOTE | 2018-08-18 14:01 | US ---
HISTORY: hepatitis COMPARISON: None available. TECHNIQUE: Sonographic evaluation of the abdomen. FINDINGS: Limited study. LIVER: Measures 17.4 cm in sagittal dimension. Echogenic liver may be seen in setting of hepatic parenchymal disease or fatty infiltration. Mildly nodular hepatic contour. No focal hepatic mass identified. The main portal vein appears patent with normal directional flow. No intrahepatic bile duct dilatation. Small abdominal ascites. GALLBLADDER: Gallstones. Gallbladder wall thickening/edema measuring approximately 6 mm. Negative sonographic Cespedes's sign as assessed by the scuba instructor. COMMON BILE DUCT: Measures 4 mm. PANCREAS: Not well visualized. RIGHT KIDNEY: Measures 12.3 x 4.8 x 5.0 cm. No obstructing calculus or hydronephrosis identified. LEFT KIDNEY: Measures 11.8 x 5.3 x 5.3 cm. No obstructing calculus or hydronephrosis identified. SPLEEN: Measures approximately 10.0 cm. AORTA: Limited views appear unremarkable. IVC: Limited views appear unremarkable. OTHER FINDINGS: None. IMPRESSION: Limited study. Echogenic liver may be seen in setting of hepatic parenchymal disease or fatty infiltration. Nodular hepatic contour. Correlate clinically for cirrhosis. Cholelithiasis. Gallbladder wall thickening/pericholecystic edema. Negative sonographic Cespedes's sign as assessed by the scuba instructor. Correlate clinically. Small abdominal ascites. Incidental note is made of left pleural effusion.
--- NOTE | 2018-08-18 14:49 | CP.PCM.PN ---
Subjective - Date & Time of Evaluation Date of Evaluation: 08/18/18 Time of Evaluation: 14:47 - Subjective Subjective: CHIEF COMPLAINTS TODAY : Patient has no specific complaints. ROS. HEENT : N. Resp : No cough, wheezing ,pleuritic CP ,or hemoptysis Cardio : No anginal CP, PND, orthopnea, palpitation GI : No abd.pain, n/v ,diarrhea or GI bleeding . 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 Musculoskel : No joint swelling , Derm : No rash Psych : Normal affect. Ext : No swelling ,calf pain PE. Pt. is alert awake in no distress. V.S As noted in the chart Head ,ear nose,throat and eyes : Normal. Neck : Supple with normal carotids. Lungs: Clear air entry. Heart : S1 & S2 normal with S4. No murmur. Abd : Soft non tender with normal bowel sounds. Neuro : Moves all ext. with no localized deficit. Ext : edema with intact pulses.Non tender calves Derm : No rashes or decubitus ulcer. LABS/RADIOLOGY: ASSESSMENT/PLAN : Patient white count has gone up to 25,000 with 29 bands. Patient on IV antibiotics Continue IV fluids sliding scale insulin coverage follow-up with a CAT scan of the abdomen and chest Objective - Vital Signs/Intake and Output Vital Signs (last 24 hours): Temp Pulse Resp BP Pulse Ox 98.6 F 71 19 93/63 L 98 08/18/18 04:00 08/18/18 08:00 08/18/18 08:00 08/18/18 08:00 08/18/18 08:00 Intake and Output: 08/18/18 08/18/18 11:59 23:59 Intake Total 417.9 Output Total 500 Balance -82.1 - Medications Medications: Current Medications Acetaminophen (Tylenol 325mg Tab) 650 mg PO Q6 PRN PRN Reason: Fever >100.4 F Heparin Sodium (Porcine) (Heparin) 5,000 units SC Q12 [facility] Last Admin: 08/18/18 10:57 Dose: 5,000 units Norepinephrine Bitartrate 4 mg (/ Dextrose) 254 mls @ 15.24 mls/hr IV .[id number] PRN; Protocol PRN Reason: TITRATE PER MD ORDER Last Titration: 08/18/18 06:27 Dose: 2 mcg/min, 7.62 mls/hr Vancomycin HCl 1,000 mg/ (Sodium Chloride) 250 mls @ 166.6 mls/hr IVPB Q12H [facility]; Protocol Sodium Chloride (Sodium Chloride 0.9%) 1,000 mls @ 75 mls/hr IV .[id number] [facility] Meropenem 500 mg/ Sodium (Chloride) 100 mls @ 100 mls/hr IVPB Q8H [facility]; Protocol Insulin Glargine (Lantus) 15 unit SC HS [facility] Insulin Human Regular (Novolin R) 0 unit SC ACHS [facility]; Protocol Last Admin: 08/18/18 06:41 Dose: 10 unit - Labs Labs: 08/18/18 05:49 08/18/18 05:49 Assessment and Plan (1) Sepsis associated hypotension Status: Acute (2) Diabetes mellitus Status: Acute (3) Weight loss Status: Acute
--- NOTE | 2018-08-18 15:19 | CT ---
Date of service: 08/18/2018 CT chest without IV contrast Indication: pna Technique: Contiguous axial images were obtained through the chest without intravenous contrast enhancement. Sagittal and coronal reconstructions were generated and reviewed. This CT exam was performed using 1 or more of the following dose reduction techniques: Automated exposure control, adjustment of the MAA and/or kV according to patient size, and/or use of iterative reconstruction technique. Radiation dose (DLP): 399.37 MGy-cm. Comparison: Chest x-ray performed 08/17/18 Findings: Right IJ approach central venous catheter extends to the SVC. Visualized portions of the inferior thyroid gland appear unremarkable. The unenhanced mediastinal and hilar vascular structures appear grossly unremarkable. Cardiomegaly. Dense coronary artery calcifications. Trace pericardial effusion. Mediastinal and prevascular adenopathy measuring up to approximately 11 mm in short axis (right pretracheal). Please note that lack of IV contrast limits evaluation for adenopathy, in particular hilar adenopathy. Small bilateral pleural effusions and associated consolidations. No pneumothorax. Large hiatal hernia with evidence of gastroesophageal reflux. Limited visualization of the noncontrast upper abdomen appears grossly unremarkable. No acute osseous abnormality is detected. Impression: Small bilateral pleural effusions and associated consolidations. Right IJ approach central venous catheter extends to the SVC. Cardiomegaly. Dense coronary artery calcifications. Trace pericardial effusion. Mediastinal and prevascular adenopathy measuring up to approximately 11 mm in short axis (right pretracheal).
[2018-08-18] MEDS: Sodium Chloride 0.9% 1,000 ML IV SCH (18:24)
--- NOTE | 2018-08-18 18:36 | CP.PCM.PN ---
Subjective - Date & Time of Evaluation Date of Evaluation: 08/18/18 Time of Evaluation: 18:36 - Subjective Subjective: CHIEF COMPLAINTS TODAY : TEMP DOWN , VS BP 102/63, PULSE OX 96-97% DENIES COUGH,SOB DENIES ABDOMINAL PAIN. HX OF CONSTIPATION OFF AND ON ROS. HEENT : N. Resp : No cough, wheezing ,pleuritic CP ,or hemoptysis Cardio : No anginal CP, PND, orthopnea, palpitation GI : No abd.pain, n/v ,diarrhea or GI bleeding . 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 Musculoskel : No joint swelling , Derm : No rash Psych : Normal affect. Ext : No swelling ,calf pain PE. Pt. is alert awake in no distress. V.S As noted in the chart Head ,ear nose,throat and eyes : Normal. Neck : Supple with normal carotids. Lungs: BASILAR RHONCHI Heart : S1 & S2 normal with S4. No murmur. Abd : Soft non tender with normal bowel sounds. Neuro : Moves all ext. with no localized deficit. Ext : edema with intact pulses.Non tender calves Derm : No rashes or decubitus ulcer. LABS reviewed Objective - Vital Signs/Intake and Output Vital Signs (last 24 hours): Temp Pulse Resp BP Pulse Ox 98.6 F 75 20 102/63 97 08/18/18 04:00 08/18/18 16:04 08/18/18 16:04 08/18/18 16:04 08/18/18 16:04 Intake and Output: 08/18/18 08/18/18 06:59 18:59 Intake Total 252.9 1177.5 Output Total 500 600 Balance -247.1 577.5 - Medications Medications: Current Medications Acetaminophen (Tylenol 325mg Tab) 650 mg PO Q6 PRN PRN Reason: Fever >100.4 F Heparin Sodium (Porcine) (Heparin) 5,000 units SC Q12 [facility] Last Admin: 08/18/18 10:57 Dose: 5,000 units Norepinephrine Bitartrate 4 mg (/ Dextrose) 254 mls @ 15.24 mls/hr IV .[id number] PRN; Protocol PRN Reason: TITRATE PER MD ORDER Last Titration: 08/18/18 06:27 Dose: 2 mcg/min, 7.62 mls/hr Vancomycin HCl 1,000 mg/ (Sodium Chloride) 250 mls @ 166.6 mls/hr IVPB Q12H [facility]; Protocol Last Admin: 08/18/18 11:05 Dose: 166.6 mls/hr Sodium Chloride (Sodium Chloride 0.9%) 1,000 mls @ 75 mls/hr IV .[id number] [facility] Last Admin: 08/18/18 18:24 Dose: 75 mls/hr Meropenem 500 mg/ Sodium (Chloride) 100 mls @ 100 mls/hr IVPB Q8H [facility]; Protocol Last Admin: 08/18/18 12:24 Dose: 100 mls/hr Insulin Glargine (Lantus) 15 unit SC HS [facility] Insulin Human Regular (Novolin R) 0 unit SC ACHS [facility]; Protocol Last Admin: 08/18/18 18:05 Dose: 6 unit - Labs Labs: 08/18/18 05:49 08/18/18 05:49 Assessment and Plan (1) Sepsis associated hypotension Assessment & Plan: BLOOD CULTURE reported +ve GRAM-POSITIVE COCCI IN CHAINS TODAY.( AEROBIC AND ANAEROBIC BOTTLE .) WBC 25.9 H/H 8.4/26.6 PLT 271 LFTS AST 530, ALT 266 ALK PO4 [address] CHEST W/O CONTRAST REVIEWED.-small bilateral pleural effusions /with consolidations Cardiomegaly, mediastinal/prevascular adenopathy 11 mm, right paratracheal. RT IJ CVC. SOURCE OF GRAM-POSITIVE COCCI IN BLOOD ? PNEUMOCOCCAL PNEUMONIA/SEPSIS R/O OCCULT LYMPHOMA VS MALIGNANCY. DC IV ROCEPHIN. DC PO TAMIFLU. CONTINUE VANCOMYCIN 1GM IVPB Q 23JAVV0/4/19. ADD IV MERREM 500MG IVPB Q8HRLY. 08/18/18. DC DROPLET PRECAUTIONS. Status: Acute (2) Hyperpyrexia Assessment & Plan: TEMP IMPROVING. Status: Acute (3) Diabetes mellitus Status: Acute (4) Weight loss Assessment & Plan: R/O LYMPHOMA/ VS MALIGNANCY. W/U IN PROGRESS. Status: Acute (5) Transaminitis Assessment & Plan: F/U LFTS. ABD. US NOTED +VE CHOLILITHIASIS, GBWTHICKENING WITH PERICHOLECYSTIC EDEMA -VE Rosas'S, NODULAR LIVER? CIRRHOSIS/SMALL ABDOMINAL ASCITES. F/U LFT, GGT. Status: Acute (6) Anemia Assessment & Plan: STOOLS FOR OB X1 VIT B12 SERUM IRON,TIBC, FERRITIN-LEVEL. Status: Acute
[2018-08-18] MEDS: (Lantus) Insulin Glargine, Recombinant SC SCH (22:24)
[2018-08-19] MEDS: Meropenem 500 MG in Sodium Chloride 0.9% 100 ML IVPB SCH ×3 (05:00→20:35)
[2018-08-19 07:16] LABS: BASO % 0.2 % (0.0-2.0); EOS # 0.2 K/uL (0.0-0.7); EOS % 0.9 % (0.0-4.0); HEMOGLOBIN 7.8 g/dL (12.0-18.0); LYMPH # 1.8 K/uL (1.0-4.3); LYMPH % 8.9 % (20.0-40.0); MEAN CORPUSCULAR HEMOGLOBIN 28.2 pg (27.0-31.0); MEAN CORPUSCULAR HGB CONC 31.7 g/dL (33.0-37.0); MEAN PLATELET VOLUME 8.3 fL (7.2-11.7); MONO # 0.8 K/uL (0.0-0.8); MONO % 3.8 % (0.0-10.0); NEUT # 17.7 K/uL (1.8-7.0); NEUT % 86.2 % (50.0-75.0); PLATELET COUNT 227 K/uL (130-400); RBC 2.78 Mil/uL (4.40-5.90); RED CELL DISTRIBUTION WIDTH 14.1 % (11.5-14.5); WHITE BLOOD COUNT 20.5 K/uL (4.8-10.8)
[2018-08-19 07:26] LABS: ALB/GLOB RATIO 0.8 (1.0-2.1); ALBUMIN 2.3 g/dL (3.5-5.0); ALT/SGPT 233 U/L (21-72); AST/SGOT 156 U/L (17-59); BILIRUBIN,DIRECT 0.4 mg/dL (0.0-0.4); BLOOD UREA NITROGEN 17 mg/dL (9-20); CALCIUM 7.8 mg/dl (8.6-10.4); GAMMA GLUTAMYL TRANSPEPTIDASE 179 U/L (8-78); GFR NON-AFRICAN AMERICAN > 60; IRON < 10 ug/dL (49-181); TOTAL IRON BINDING CAPACITY 159 ug/dL (250-450)
[2018-08-19 07:33] LABS: % IRON SATURATION 6.3 (20-55)
[2018-08-19] MEDS: (Novolin R) Insulin Human Regular 100 units/ml vial SC SCH ×4 (08:47→21:43)
[2018-08-19] MEDS ORDERED: Albumin Human 25% (12.5 gm/50 ml) IV ONE (09:01)
[2018-08-19 09:14] LABS: BANDS 13 % (0-2); LYMPHOCYTE 9 % (20-40); MONOCYTE 6 % (0-10); NEUTROPHIL 72 % (50-75); PLATELET ESTIMATE NORMAL (NORMAL); TOTAL CELLS COUNTED 100
[2018-08-19 09:15] LABS: ANISOCYTOSIS SLIGHT
[2018-08-19 09:16] LABS: HYPOCHROMIC SLIGHT; OVALOCYTES SLIGHT; POIKILOCYTOSIS SLIGHT; POLYCHROMIC SLIGHT
--- NOTE | 2018-08-19 13:03 | CP.PCM.PN ---
Subjective - Date & Time of Evaluation Date of Evaluation: 08/19/18 Time of Evaluation: 12:56 - Subjective Subjective: No events, patient is alert and oriented, today able to taper down levophed. Denies black stools or vomiting blood, had peptic ulcer in , h/o heavy drinking during that time. Recently about 2 drinks/day. Objective - Vital Signs/Intake and Output Vital Signs (last 24 hours): Temp Pulse Resp BP Pulse Ox 98.2 F 70 26 H 113/73 97 08/19/18 12:00 08/19/18 12:04 08/19/18 12:04 08/19/18 12:04 08/19/18 12:04 Intake and Output: 08/19/18 08/19/18 06:59 18:59 Intake Total 1275 1175 Output Total 600 500 Balance 675 675 - Medications Medications: Current Medications Acetaminophen (Tylenol 325mg Tab) 650 mg PO Q6 PRN PRN Reason: Fever >100.4 F Heparin Sodium (Porcine) (Heparin) 5,000 units SC Q12 [facility] Last Admin: 08/18/18 22:24 Dose: 5,000 units Norepinephrine Bitartrate 4 mg (/ Dextrose) 254 mls @ 15.24 mls/hr IV .[id number] PRN; Protocol PRN Reason: TITRATE PER MD ORDER Last Titration: 08/19/18 06:50 Dose: 0.99 mcg/min, 3.8 mls/hr Vancomycin HCl 1,000 mg/ (Sodium Chloride) 250 mls @ 166.6 mls/hr IVPB Q12H [facility]; Protocol Last Admin: 08/18/18 22:23 Dose: 166.6 mls/hr Sodium Chloride (Sodium Chloride 0.9%) 1,000 mls @ 75 mls/hr IV .[id number] [facility] Last Admin: 08/19/18 00:00 Dose: Not Given Meropenem 500 mg/ Sodium (Chloride) 100 mls @ 100 mls/hr IVPB Q8H [facility]; Protocol Last Admin: 08/19/18 05:00 Dose: 100 mls/hr Insulin Glargine (Lantus) 15 unit SC HS [facility] Last Admin: 08/18/18 22:24 Dose: 15 unit Insulin Human Regular (Novolin R) 0 unit SC ACHS [facility]; Protocol Last Admin: 08/18/18 22:25 Dose: 6 unit - Labs Labs: 08/19/18 06:48 08/19/18 06:48 - Additional Findings Additional findings: * HEENT SYLVIA * Neck Supple * Chest Clear * CVS regular, no gallop or rub * PA soft, nt bs present * Ext 2+ edema * 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 * See orders for detail.
--- NOTE | 2018-08-19 15:42 | CP.PCM.PN ---
Subjective - Date & Time of Evaluation Date of Evaluation: 08/19/18 Time of Evaluation: 15:41 - Subjective Subjective: Ultrasound of the abdomen shows megan liver with possible cirrhosis, GI evaluation requested. WBC count is trending down to 20,000 and band to 13 Weaning of Levophed maintaining his blood pressure CT of the chest shows small effusion with consolidation Continue IV antibiotics Objective - Vital Signs/Intake and Output Vital Signs (last 24 hours): Temp Pulse Resp BP Pulse Ox 98.2 F 70 26 H 113/73 97 08/19/18 12:00 08/19/18 12:04 08/19/18 12:04 08/19/18 12:04 08/19/18 12:04 Intake and Output: 08/19/18 08/19/18 11:59 23:59 Intake Total 1525 350 Output Total 600 200 Balance 925 150 - Medications Medications: Current Medications Acetaminophen (Tylenol 325mg Tab) 650 mg PO Q6 PRN PRN Reason: Fever >100.4 F Folic Acid (Folic Acid) 1 mg PO DAILY [facility] Heparin Sodium (Porcine) (Heparin) 5,000 units SC Q12 [facility] Last Admin: 08/18/18 22:24 Dose: 5,000 units Norepinephrine Bitartrate 4 mg (/ Dextrose) 254 mls @ 15.24 mls/hr IV .[id number] PRN; Protocol PRN Reason: TITRATE PER MD ORDER Last Titration: 08/19/18 06:50 Dose: 0.99 mcg/min, 3.8 mls/hr Vancomycin HCl 1,000 mg/ (Sodium Chloride) 250 mls @ 166.6 mls/hr IVPB Q12H [facility]; Protocol Last Admin: 08/18/18 22:23 Dose: 166.6 mls/hr Sodium Chloride (Sodium Chloride 0.9%) 1,000 mls @ 75 mls/hr IV .[id number] [facility] Last Admin: 08/19/18 00:00 Dose: Not Given Meropenem 500 mg/ Sodium (Chloride) 100 mls @ 100 mls/hr IVPB Q8H [facility]; Protocol Last Admin: 08/19/18 05:00 Dose: 100 mls/hr Insulin Glargine (Lantus) 15 unit SC HS [facility] Last Admin: 08/18/18 22:24 Dose: 15 unit Insulin Human Regular (Novolin R) 0 unit SC ACHS [facility]; Protocol Last Admin: 08/18/18 22:25 Dose: 6 unit Multivitamins (Hexavitamin) 1 tab PO DAILY [facility] Thiamine HCl (Vitamin B1 Tab) 100 mg PO DAILY [facility] - Labs Labs: 08/19/18 06:48 08/19/18 06:48 Assessment and Plan (1) Sepsis associated hypotension Status: Acute (2) Diabetes mellitus Status: Acute (3) Weight loss Status: Acute
[2018-08-19] MEDS: Sodium Chloride 0.9% 1,000 ML IV SCH ×2 (17:53)
[2018-08-19] MEDS: (Lantus) Insulin Glargine, Recombinant SC SCH (21:44)
--- NOTE | 2018-08-19 23:36 | CP.PCM.PN ---
Subjective - Date & Time of Evaluation Date of Evaluation: 08/19/18 Time of Evaluation: 23:36 - Subjective Subjective: CHIEF COMPLAINTS TODAY : AFEBRILE, OFF LEVOPHED, LOOKS PALE DENIES COUGH,SOB DENIES ABDOMINAL PAIN. ROS. HEENT : N. Resp : No cough, wheezing ,pleuritic CP ,or hemoptysis Cardio : No anginal CP, PND, orthopnea, palpitation GI : No abd.pain, n/v ,diarrhea or GI bleeding . 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 Musculoskel : No joint swelling , Derm : No rash Psych : Normal affect. Ext : No swelling ,calf pain PE. Pt. is alert awake in no distress. V.S As noted in the chart Head ,ear nose,throat and eyes : Normal. Neck : Supple with normal carotids. Lungs: BASILAR RHONCHI Heart : S1 & S2 normal with S4. No murmur. Abd : Soft non tender with normal bowel sounds.NO HEPATOSPLENOMEGALY Neuro : Moves all ext. with no localized deficit. Ext : 2+ EDEMA LE with intact pulses. Non tender calves Derm : No rashes or decubitus ulcer. LABS reviewed PLAN ; CONTINUE IV ABX PT ON IV VANCOMYCIN 1GM IVPB Q 12HRLY. IV MERREM 500MG IV Q 8HRLY. GI EVAL FOR IRON DEFICIENCY ANAEMIA, WT LOSS AND CIRRHOSIS . Objective - Vital Signs/Intake and Output Vital Signs (last 24 hours): Temp Pulse Resp BP Pulse Ox 98.4 F 76 16 107/69 98 08/19/18 20:00 08/19/18 21:04 08/19/18 21:04 08/19/18 21:04 08/19/18 21:04 Intake and Output: 08/19/18 08/20/18 18:59 06:59 Intake Total 1976.1 417 Output Total 500 Balance 1476.1 417 - Medications Medications: Current Medications Acetaminophen (Tylenol 325mg Tab) 650 mg PO Q6 PRN PRN Reason: Fever >100.4 F Folic Acid (Folic Acid) 1 mg PO DAILY [facility] Last Admin: 08/19/18 17:44 Dose: 1 mg Heparin Sodium (Porcine) (Heparin) 5,000 units SC Q12 [facility] Last Admin: 08/19/18 21:45 Dose: 5,000 units Norepinephrine Bitartrate 4 mg (/ Dextrose) 254 mls @ 15.24 mls/hr IV .[id number] PRN; Protocol PRN Reason: TITRATE PER MD ORDER Last Titration: 08/19/18 12:01 Dose: 0 mcg/min, 0 mls/hr Vancomycin HCl 1,000 mg/ (Sodium Chloride) 250 mls @ 166.6 mls/hr IVPB Q12H [facility]; Protocol Last Admin: 08/19/18 22:00 Dose: 166.6 mls/hr Sodium Chloride (Sodium Chloride 0.9%) 1,000 mls @ 75 mls/hr IV .[id number] [facility] Last Admin: 08/19/18 17:53 Dose: 75 mls/hr Meropenem 500 mg/ Sodium (Chloride) 100 mls @ 100 mls/hr IVPB Q8H [facility]; Protocol Last Admin: 08/19/18 20:35 Dose: 100 mls/hr Insulin Glargine (Lantus) 15 unit SC HS [facility] Last Admin: 08/19/18 21:44 Dose: 15 unit Insulin Human Regular (Novolin R) 0 unit SC ACHS [facility]; Protocol Last Admin: 08/19/18 21:43 Dose: Not Given Multivitamins (Hexavitamin) 1 tab PO DAILY [facility] Thiamine HCl (Vitamin B1 Tab) 100 mg PO DAILY [facility] Last Admin: 08/19/18 17:44 Dose: 100 mg - Labs Labs: 08/19/18 06:48 08/19/18 06:48 Assessment and Plan (1) Sepsis associated hypotension Status: Acute (2) Gram positive septicemia Status: Acute (3) Hyperpyrexia Status: Acute (4) Diabetes mellitus Status: Acute (5) Weight loss Status: Acute (6) Anemia Status: Acute
[2018-08-20] MEDS: Sodium Chloride 0.9% 1,000 ML IV SCH ×2 (02:41→19:00)
[2018-08-20] MEDS: Meropenem 500 MG in Sodium Chloride 0.9% 100 ML IVPB SCH ×3 (04:12→19:57)
[2018-08-20 05:58] LABS: BASO # 0.1 K/uL (0.0-0.2); BASO % 0.7 % (0.0-2.0); EOS # 0.1 K/uL (0.0-0.7); EOS % 0.6 % (0.0-4.0); HEMOGLOBIN 8.4 g/dL (12.0-18.0); LYMPH # 1.1 K/uL (1.0-4.3); LYMPH % 9.7 % (20.0-40.0); MEAN CORPUSCULAR HEMOGLOBIN 28.5 pg (27.0-31.0); MEAN CORPUSCULAR HGB CONC 32.4 g/dL (33.0-37.0); MEAN PLATELET VOLUME 8.1 fL (7.2-11.7); MONO # 0.5 K/uL (0.0-0.8); MONO % 3.9 % (0.0-10.0); NEUT # 9.8 K/uL (1.8-7.0); NEUT % 85.1 % (50.0-75.0); NRBC % 0.1 % (0.0-2.0); PLATELET COUNT 209 K/uL (130-400); RBC 2.94 Mil/uL (4.40-5.90); RED CELL DISTRIBUTION WIDTH 14.1 % (11.5-14.5); WHITE BLOOD COUNT 11.6 K/uL (4.8-10.8)
[2018-08-20 06:18] LABS: ALB/GLOB RATIO 0.8 (1.0-2.1); ALBUMIN 2.5 g/dL (3.5-5.0); ALT/SGPT 201 U/L (21-72); AST/SGOT 88 U/L (17-59); BLOOD UREA NITROGEN 12 mg/dL (9-20); CALCIUM 8.2 mg/dl (8.6-10.4); GFR NON-AFRICAN AMERICAN > 60
[2018-08-20] MEDS: (Novolin R) Insulin Human Regular 100 units/ml vial SC SCH ×4 (07:30→22:16)
[2018-08-20 09:03] LABS: EOSINOPHIL 1 % (0-4); LYMPHOCYTE 6 % (20-40); MONOCYTE 2 % (0-10); NEUTROPHIL 91 % (50-75); TOTAL CELLS COUNTED 100
[2018-08-20 09:05] LABS: PLATELET ESTIMATE NORMAL (NORMAL)
[2018-08-20 09:08] LABS: HYPOCHROMIC SLIGHT
[2018-08-20 09:09] LABS: POLYCHROMIC SLIGHT
[2018-08-20] MEDS: Multiple Vitamins Tab PO SCH (09:15)
--- NOTE | 2018-08-20 09:31 | CARD ---
APPROVED REPORT Date of service: 08/18/2018 EXAM: Two-dimensional and M-mode echocardiogram with Doppler and color Doppler. Other Information Quality : AverageRhythm : NSR RISK FACTORS Hypertension Diabetes 2D DIMENSIONS IVSd0.8 (0.7-1.1cm)Aortic Root (2D)3.0 (2.0-3.7cm) LVDd4.4 (3.9-5.9cm)PWd0.8 (0.7-1.1cm) LA Cjgqsu00 (18-58mL)LVDs3.3 (2.5-4.0cm) FS (%) 26.5 %LVEF (%)52.0 (>50%) IVC0.00 cm Aortic Valve AoV Peak Dfafumqz246.8cm/Bryce Peak GR.4mmHg Mitral Valve MV E Bkqzbtbx90.3cm/sMV A Bfwxztve26.3cm/sE/A ratio1.1 TDI Lateral E' Peak V8.16cm/sMedial E' Peak V7.64cm/sE/Lateral E'8.9 E/Medial E'9.5 Tricuspid Valve TR Peak Qybobtjg701yp/sTR Peak Gr.51xrZkTXGF53ppKf LEFT VENTRICLE The left ventricle is normal size. There is normal left ventricular wall thickness. The left ventricular function is normal. The left ventricular ejection fraction is within the normal range. About 55% No regional wall motion abnormalities noted. The left ventricular diastolic function is indeterminate No left ventricle thrombus noted on this study. There is no ventricular septal defect visualized. There is no left ventricular aneurysm. There is no mass noted in the left ventricle. RIGHT VENTRICLE The right ventricle is normal size. There is normal right ventricular wall thickness. The right ventricular systolic function is normal. ATRIA The left atrium size is normal. The right atrium size is normal. The interatrial septum is intact with no evidence for an atrial septal defect. AORTIC VALVE The aortic valve is normal in structure and function. No aortic regurgitation is present. There is no aortic valvular stenosis. There is no aortic valvular vegetation. MITRAL VALVE The mitral valve is normal in structure and function. There is no evidence of mitral valve prolapse. There is no mitral valve stenosis. There is mild mitral valve regurgitation noted. TRICUSPID VALVE The tricuspid valve is normal in structure and function. There is mild tricuspid valve regurgitation noted.Estimated PA systolic pressure is 32 mm Hg. There is no tricuspid valve prolapse or vegetation. There is no tricuspid valve stenosis. PULMONIC VALVE The pulmonary valve is normal in structure and function. There is no pulmonic valvular regurgitation. There is no pulmonic valvular stenosis. GREAT VESSELS The aortic root is normal in size. The ascending aorta is normal in size. The pulmonary artery is normal. The IVC is dilated n size and collapses <50% with inspiration. PERICARDIAL EFFUSION The pericardium appears normal. There is no pleural effusion. <Conclusion> The left ventricular function is normal. The left ventricular ejection fraction is within the normal range. About 55% There is mild mitral valve regurgitation noted.
--- NOTE | 2018-08-20 09:56 | CP.PCM.CON ---
History of Present Illness - History of Present Illness History of Present Illness: This is a 58 year old man admitted with shock. GI is consulted for low iron levels and possible cirrhosis. Patient was in his usual stae of health until the afternoon of the day of admission, when he felf chills, diffuse body aches, and lightheadedness. He was brought to the ER, and he was found to be hypotensive, BP 89/41. Patient remained hypotensive from approximately 15:00 until 22:00, with BP 76/50 and 76/44. Initial CMP showed AST 36, ALT 39, ALKP 156. The following day, AST was 530, ALT 266, ALKP 97. Today, the values were AST 88, ALT 201, ALKP 184. Sonogram of the abdomen showed an echogenic liver, suggestive of fatty liver, with a "mildly nodular" contour; edema of the GB wall, CBD 4 mm. He has no history of liver disease, hepatitis or jaundice. There is no family history of liver disease. He drinks one beer and one to two drinks of hard liquor daily. HGB on admission was 10.1, MCV 88, and today's values are HGB 8.4 and MCV 88. Patient has difficulty swallowing bread, which makes him gag, but no difficulty swallowing liquids or other solids. He denies having heartburn. He has lost 28 pounds in the past year. He denies having loss of appetite, nausea and vomiting. He has been constipated for the past two months, firm stools every two days. He also denies having diarrhea, rectal bleeding and melena. Review of Systems - Constitutional Constitutional: Chills, Weakness. absent: Fever - EENT Ears: absent: Ear Pain - Cardiovascular Cardiovascular: absent: Chest Pain, Dyspnea, Palpitations - Respiratory Respiratory: Cough. absent: Dyspnea - Gastrointestinal Gastrointestinal: Constipation, Dysphagia. absent: Abdominal Pain, Diarrhea, Hematochezia, Nausea, Vomiting - Genitourinary Genitourinary: absent: Dysuria - Musculoskeletal Musculoskeletal: absent: Back Pain, Neck Pain Past Patient History - Past Medical History & Family History Past Medical History?: Yes - Past Social History Smoking Status: Light Smoker < 10 Cigarettes Daily - CARDIAC Hx Cardiac Disorders: No - PULMONARY Hx Respiratory Disorders: No - NEUROLOGICAL Hx Neurological Disorder: No - HEENT Hx HEENT Problems: No - RENAL Hx Chronic Kidney Disease: No - ENDOCRINE/METABOLIC Hx Diabetes Mellitus Type 2: Yes - HEMATOLOGICAL/ONCOLOGICAL Hx Blood Disorders: No - INTEGUMENTARY Hx Dermatological Problems: No - MUSCULOSKELETAL/RHEUMATOLOGICAL Hx Musculoskeletal Disorders: No Hx Falls: No - GASTROINTESTINAL Hx Gastrointestinal Disorders: No - GENITOURINARY/GYNECOLOGICAL Hx Genitourinary Disorders: No - PSYCHIATRIC Hx Substance Use: No - SURGICAL HISTORY Other/Comment: Hernia Removed / 1990 - ANESTHESIA Hx Anesthesia: Yes Hx Anesthesia Reactions: No Hx Malignant Hyperthermia: No Has any member of the family had a problem w/ anesthesia?: No Meds Allergies/Adverse Reactions: Allergies Allergy/AdvReac Type Severity Reaction Status Date / Time No Known Allergies Allergy Unverified 08/17/18 15:04 - Medications Medications: Current Medications Acetaminophen (Tylenol 325mg Tab) 650 mg PO Q6 PRN PRN Reason: Fever >100.4 F Folic Acid (Folic Acid) 1 mg PO DAILY [facility] Last Admin: 08/20/18 09:23 Dose: 1 mg Heparin Sodium (Porcine) (Heparin) 5,000 units SC Q12 [facility] Last Admin: 08/20/18 09:15 Dose: 5,000 units Norepinephrine Bitartrate 4 mg (/ Dextrose) 254 mls @ 15.24 mls/hr IV .[id number] PRN; Protocol PRN Reason: TITRATE PER MD ORDER Last Titration: 08/19/18 12:01 Dose: 0 mcg/min, 0 mls/hr Vancomycin HCl 1,000 mg/ (Sodium Chloride) 250 mls @ 166.6 mls/hr IVPB Q12H [facility]; Protocol Last Admin: 08/19/18 22:00 Dose: 166.6 mls/hr Sodium Chloride (Sodium Chloride 0.9%) 1,000 mls @ 75 mls/hr IV .[id number] [facility] Last Admin: 08/20/18 02:41 Dose: Not Given Meropenem 500 mg/ Sodium (Chloride) 100 mls @ 100 mls/hr IVPB Q8H [facility]; Protocol Last Admin: 08/20/18 04:12 Dose: 100 mls/hr Potassium Chloride (Potassium Chloride 20 Meq/100 Ml) 20 meq in 100 mls @ 50 mls/hr IVPB Q2H [facility] Stop: 08/20/18 14:59 Last Admin: 08/20/18 09:15 Dose: 50 mls/hr Insulin Glargine (Lantus) 15 unit SC HS [facility] Last Admin: 08/19/18 21:44 Dose: 15 unit Insulin Human Regular (Novolin R) 0 unit SC [facility]; Protocol Last Admin: 08/20/18 07:30 Dose: Not Given Multivitamins (Hexavitamin) 1 tab PO DAILY [facility] Last Admin: 08/20/18 09:15 Dose: 1 tab Thiamine HCl (Vitamin B1 Tab) 100 mg PO DAILY [facility] Last Admin: 08/20/18 09:15 Dose: 100 mg Physical Exam - Constitutional Appears: No Acute Distress - Head Exam Head Exam: ATRAUMATIC, NORMOCEPHALIC - Eye Exam Eye Exam: EOMI, PERRL - Neck Exam Neck exam: Negative for: Lymphadenopathy, Thyromegaly - Respiratory Exam Respiratory Exam: NORMAL BREATHING PATTERN. absent: Rales, Rhonchi, Wheezes - Cardiovascular Exam Cardiovascular Exam: REGULAR RHYTHM, +S1, +S2. absent: Gallop, Rubs, Systolic Murmur - GI/Abdominal Exam GI & Abdominal Exam: Normal Bowel Sounds, Soft. absent: Mass, Organomegaly, Tenderness - Rectal Exam Rectal Exam: Deferred - Extremities Exam Extremities exam: Negative for: calf tenderness, pedal edema Results - Vital Signs Recent Vital Signs: Last Vital Signs Temp 98.5 F 08/20/18 04:00 Pulse 67 08/20/18 08:04 Resp 22 08/20/18 08:04 BP 137/72 08/20/18 08:04 Pulse Ox 100 08/20/18 08:04 - Labs Result Diagrams: 08/20/18 05:52 08/20/18 05:52 Labs: Laboratory Results - last 24 hr 08/19/18 08/19/18 08/19/18 07:17 09:16 11:23 WBC RBC Hgb Hct MCV MCH MCHC RDW Plt Count MPV Neut % (Auto) Lymph % (Auto) [place] % (Auto) Eos % (Auto) Baso % (Auto) Neut # (Auto) Lymph # (Auto) [place] # (Auto) Eos # (Auto) Baso # (Auto) Neutrophils % (Manual) Lymphocytes % (Manual) Monocytes % (Manual) Eosinophils % (Manual) Platelet Estimate Polychromasia Hypochromasia (manual) Sodium Potassium Chloride Carbon Dioxide Anion Gap BUN Creatinine Est GFR ( Amer) Est GFR (Non-Af Amer) POC Glucose (mg/dL) 138 H 193 H Random Glucose Calcium Phosphorus Magnesium Total Bilirubin AST ALT Alkaline Phosphatase Total Protein Albumin Globulin Albumin/Globulin Ratio Cortisol AM Sample 16.5 08/19/18 08/19/18 08/20/18 16:04 21:03 05:52 WBC 11.6 H RBC 2.94 L Hgb 8.4 L Hct 25.8 L MCV 88.0 MCH 28.5 MCHC 32.4 L RDW 14.1 Plt Count 209 MPV 8.1 Neut % (Auto) 85.1 H Lymph % (Auto) 9.7 L [place] % (Auto) 3.9 Eos % (Auto) 0.6 Baso % (Auto) 0.7 Neut # (Auto) 9.8 H Lymph # (Auto) 1.1 [place] # (Auto) 0.5 Eos # (Auto) 0.1 Baso # (Auto) 0.1 Neutrophils % (Manual) 91 H Lymphocytes % (Manual) 6 L Monocytes % (Manual) 2 Eosinophils % (Manual) 1 Platelet Estimate Normal Polychromasia Slight Hypochromasia (manual) Slight Sodium Potassium Chloride Carbon Dioxide Anion Gap BUN Creatinine Est GFR ( Amer) Est GFR (Non-Af Amer) POC Glucose (mg/dL) 220 H 170 H Random Glucose Calcium Phosphorus Magnesium Total Bilirubin AST ALT Alkaline Phosphatase Total Protein Albumin Globulin Albumin/Globulin Ratio Cortisol AM Sample 08/20/18 08/20/18 08/20/18 05:52 07:21 07:23 WBC RBC Hgb Hct MCV MCH MCHC RDW Plt Count MPV Neut % (Auto) Lymph % (Auto) [place] % (Auto) Eos % (Auto) Baso % (Auto) Neut # (Auto) Lymph # (Auto) [place] # (Auto) Eos # (Auto) Baso # (Auto) Neutrophils % (Manual) Lymphocytes % (Manual) Monocytes % (Manual) Eosinophils % (Manual) Platelet Estimate Polychromasia Hypochromasia (manual) Sodium 135 Potassium 3.1 L Chloride 104 Carbon Dioxide 27 Anion Gap 7 L BUN 12 Creatinine 0.6 L Est GFR ( Amer) > 60 Est GFR (Non-Af Amer) > 60 POC Glucose (mg/dL) 58 L 60 L Random Glucose 44 L D Calcium 8.2 L Phosphorus 3.9 Magnesium 2.0 Total Bilirubin 0.3 AST 88 H D ALT 201 H Alkaline Phosphatase 184 H Total Protein 5.6 L Albumin 2.5 L Globulin 3.0 Albumin/Globulin Ratio 0.8 L Cortisol AM Sample Assessment & Plan (1) Transaminitis Assessment and Plan: Elevation in transaminases followed a prolonged episode of hypotension. The most likely diagnosis is shock liver or ischemic hepatopathy. He may have underlying liver disease, although the amount of alcohol which he drinks, if accurate, is only modest and unlikely to cause cirrhosis. Will follow LFTs and check serology for AMA, ASMA, ceruloplasmin, and A1AT. Status: Acute (2) Anemia Assessment and Plan: The HGB dropped from 10.1on admission to 7.8 on 08/19/17; today's value is 8.4. There has been no overt bleeding. The iron indices are consistent with anemia of chronic disease rather than iron deficiency. Will check stool occult blood. Because of his age, he is a candidate for colonoscopy when stable. Status: Acute
--- NOTE | 2018-08-20 12:07 | CP.CCUPN ---
<Enriuqe Dye - Last Filed: 08/20/18 12:04> CCU Subjective - Physician Review Events Since Last Encounter (Free Text): 08/20/18 12:18 off levophed with good blood pressure Subjective (Free Text): 08/20/18 12:18 Critical Care Progress Note for Dr. Dennis's service Patient seen and examined at bedside. Offers 0 acute complaints. Patient denies fevers, chills, chest pain, sob, n/v, constipation or diarrhea, and dyuria. Critical Care Time Spent (in minutes): 35 CCU Objective - Vital Signs / Intake & Output Intake and Output (Last 8hrs): Intake & Output 08/19/18 08/20/18 08/20/18 22:59 06:59 14:59 Intake Total 967 820.5 550 Output Total 1000 300 Balance 967 -179.5 250 Weight 153 lb 3.2 oz Intake: Intake, IV Amount 717 670.5 150 Right Medial Port 717 670.5 150 Internal Jugular Oral 250 150 400 Output: Urine 1000 300 Urine, Voided 1000 300 Other: # Voids Urine, Voided 500 - Physical Exam Head: Positive for: Atraumatic, Normocephalic Pupils: Positive for: PERRL Extroacular Muscles: Positive for: EOMI Mouth: Positive for: Moist Mucous Membranes Respiratory/Chest: Positive for: Clear to Auscultation, Good Air Exchange. Negative for: Respiratory Distress, Accessory Muscle Use, Wheezes Cardiovascular: Positive for: Regular Rate and Rhythm, Normal S1, S2 Abdomen: Positive for: Normal Bowel Sounds. Negative for: Tenderness, Distention, Peritoneal Signs Upper Extremity: Positive for: Normal Inspection. Negative for: Cyanosis, Edema Lower Extremity: Positive for: Normal Inspection, Edema Neurological: Positive for: GCS=15 Skin: Positive for: Warm, Normal Color. Negative for: Dry, Rashes Psychiatric: Positive for: Alert, Oriented x 3 - Medications Active Medications: Active Medications Generic Name Dose Route Start Last Admin Trade Name Freq PRN Reason Stop Dose Admin Acetaminophen 650 mg 08/17/18 18:26 Tylenol 325mg Tab PO Q6 PRN Fever >100.4 F Folic Acid 1 mg 08/19/18 13:15 08/20/18 09:23 Folic Acid PO 1 mg DAILY EDER Administration Heparin Sodium (Porcine) 5,000 units 08/17/18 22:00 08/20/18 09:15 Heparin SC 5,000 units Q12 EDER Administration Norepinephrine Bitartrate 4 mg 254 mls @ 15.24 mls/hr 08/17/18 18:26 08/19/18 12:01 / Dextrose IV 0 mcg/min .[id number] PRN 0 mls/hr TITRATE PER MD ORDER Titration Protocol 4 MCG/MIN Vancomycin HCl 1,000 mg/ 250 mls @ 166.6 mls/hr 08/18/18 11:00 08/19/18 22:00 Sodium Chloride IVPB 166.6 mls/hr Q12H EDER Administration Protocol Sodium Chloride 1,000 mls @ 75 mls/hr 08/18/18 10:34 08/20/18 02:41 Sodium Chloride 0.9% IV Not Given .[id number] EDER Meropenem 500 mg/ Sodium 100 mls @ 100 mls/hr 08/18/18 12:30 08/20/18 04:12 Chloride IVPB 100 mls/hr Q8H EDER Administration Protocol Potassium Chloride 20 meq in 100 mls @ 50 mls/hr 08/20/18 09:00 08/20/18 09:15 Potassium Chloride 20 Meq/100 Ml IVPB 08/20/18 14:59 50 mls/hr Q2H EDER Administration Insulin Glargine 15 unit 08/18/18 22:00 08/19/18 21:44 Lantus SC 15 unit HS EDER Administration Insulin Human Regular 0 unit 08/17/18 22:00 08/20/18 07:30 Novolin R SC Not Given ACHS [facility] Protocol Multivitamins 1 tab 08/20/18 10:00 08/20/18 09:15 Hexavitamin PO 1 tab DAILY EDER Administration Thiamine HCl 100 mg 08/19/18 13:15 08/20/18 09:15 Vitamin B1 Tab PO 100 mg DAILY EDER Administration - Patient Studies Lab Studies: Microbiology Studies 08/17/18 16:00 Blood Culture - Final Blood-Venous Streptococcus anginosus group Gram Stain - Final 08/17/18 15:10 Blood Culture - Final Blood-Venous Streptococcus anginosus group Gram Stain - Final 08/18/18 07:27 MRSA Culture (Admit) - Final Naris MRSA NOT DETECTED Lab Studies 08/20/18 08/20/1808/20/19 Range/Units 11:39 11:21 08:20 WBC (4.8-10.8) K/uL RBC (4.40-5.90) Mil/uL Hgb (12.0-18.0) g/dL Hct (35.0-51.0) % MCV (80.0-94.0) fL MCH (27.0-31.0) pg MCHC (33.0-37.0) g/dL RDW (11.5-14.5) % Plt Count (130-400) K/uL MPV (7.2-11.7) fL Neut % (Auto) (50.0-75.0) % Lymph % (Auto) (20.0-40.0) % Glynn % (Auto) (0.0-10.0) % Eos % (Auto) (0.0-4.0) % Baso % (Auto) (0.0-2.0) % Neut # (Auto) (1.8-7.0) K/uL Lymph # (Auto) (1.0-4.3) K/uL Glynn # (Auto) (0.0-0.8) K/uL Eos # (Auto) (0.0-0.7) K/uL Baso # (Auto) (0.0-0.2) K/uL Neutrophils % (Manual) (50-75) % Lymphocytes % (Manual) (20-40) % Monocytes % (Manual) (0-10) % Eosinophils % (Manual) (0-4) % Platelet Estimate (NORMAL) Polychromasia Hypochromasia (manual) Sodium (132-148) mmol/L Potassium (3.6-5.2) mmol/L Chloride (98-107) mmol/L Carbon Dioxide (22-30) mmol/L Anion Gap (10-20) BUN (9-20) mg/dL Creatinine (0.8-1.5) mg/dL Est GFR ( Amer) Est GFR (Non-Af Amer) POC Glucose (mg/dL) 190 H 106 (65-110) mg/dL Random Glucose (75-110) mg/dL Calcium (8.6-10.4) mg/dl Phosphorus (2.5-4.5) mg/dL Magnesium (1.6-2.3) mg/dL Total Bilirubin (0.2-1.3) mg/dL AST (17-59) U/L ALT (21-72) U/L Alkaline Phosphatase (38-126) U/L Total Protein (6.3-8.3) g/dL Albumin (3.5-5.0) g/dL Globulin (2.2-3.9) gm/dL Albumin/Globulin Ratio (1.0-2.1) Stool Occult Blood Positive H (NEGATIVE) 08/20/18 08/20/18 08/20/18 Range/Units 07:23 07:21 05:52 WBC (4.8-10.8) K/uL RBC (4.40-5.90) Mil/uL Hgb (12.0-18.0) g/dL Hct (35.0-51.0) % MCV (80.0-94.0) fL MCH (27.0-31.0) pg MCHC (33.0-37.0) g/dL RDW (11.5-14.5) % Plt Count (130-400) K/uL MPV (7.2-11.7) fL Neut % (Auto) (50.0-75.0) % Lymph % (Auto) (20.0-40.0) % Glynn % (Auto) (0.0-10.0) % Eos % (Auto) (0.0-4.0) % Baso % (Auto) (0.0-2.0) % Neut # (Auto) (1.8-7.0) K/uL Lymph # (Auto) (1.0-4.3) K/uL Glynn # (Auto) (0.0-0.8) K/uL Eos # (Auto) (0.0-0.7) K/uL Baso # (Auto) (0.0-0.2) K/uL Neutrophils % (Manual) (50-75) % Lymphocytes % (Manual) (20-40) % Monocytes % (Manual) (0-10) % Eosinophils % (Manual) (0-4) % Platelet Estimate (NORMAL) Polychromasia Hypochromasia (manual) Sodium 135 (132-148) mmol/L Potassium 3.1 L (3.6-5.2) mmol/L Chloride 104 (98-107) mmol/L Carbon Dioxide 27 (22-30) mmol/L Anion Gap 7 L (10-20) BUN 12 (9-20) mg/dL Creatinine 0.6 L (0.8-1.5) mg/dL Est GFR ( Amer) > 60 Est GFR (Non-Af Amer) > 60 POC Glucose (mg/dL) 60 L 58 L (65-110) mg/dL Random Glucose 44 L D (75-110) mg/dL Calcium 8.2 L (8.6-10.4) mg/dl Phosphorus 3.9 (2.5-4.5) mg/dL Magnesium 2.0 (1.6-2.3) mg/dL Total Bilirubin 0.3 (0.2-1.3) mg/dL AST 88 H D (17-59) U/L ALT 201 H (21-72) U/L Alkaline Phosphatase 184 H (38-126) U/L Total Protein 5.6 L (6.3-8.3) g/dL Albumin 2.5 L (3.5-5.0) g/dL Globulin 3.0 (2.2-3.9) gm/dL Albumin/Globulin Ratio 0.8 L (1.0-2.1) Stool Occult Blood (NEGATIVE) 08/20/18 08/19/18 08/19/18 Range/Units 05:52 21:03 16:04 WBC 11.6 H (4.8-10.8) K/uL RBC 2.94 L (4.40-5.90) Mil/uL Hgb 8.4 L (12.0-18.0) g/dL Hct 25.8 L (35.0-51.0) % MCV 88.0 (80.0-94.0) fL MCH 28.5 (27.0-31.0) pg MCHC 32.4 L (33.0-37.0) g/dL RDW 14.1 (11.5-14.5) % Plt Count 209 (130-400) K/uL MPV 8.1 (7.2-11.7) fL Neut % (Auto) 85.1 H (50.0-75.0) % Lymph % (Auto) 9.7 L (20.0-40.0) % Glynn % (Auto) 3.9 (0.0-10.0) % Eos % (Auto) 0.6 (0.0-4.0) % Baso % (Auto) 0.7 (0.0-2.0) % Neut # (Auto) 9.8 H (1.8-7.0) K/uL Lymph # (Auto) 1.1 (1.0-4.3) K/uL Glynn # (Auto) 0.5 (0.0-0.8) K/uL Eos # (Auto) 0.1 (0.0-0.7) K/uL Baso # (Auto) 0.1 (0.0-0.2) K/uL Neutrophils % (Manual) 91 H (50-75) % Lymphocytes % (Manual) 6 L (20-40) % Monocytes % (Manual) 2 (0-10) % Eosinophils % (Manual) 1 (0-4) % Platelet Estimate Normal (NORMAL) Polychromasia Slight Hypochromasia (manual) Slight Sodium (132-148) mmol/L Potassium (3.6-5.2) mmol/L Chloride (98-107) mmol/L Carbon Dioxide (22-30) mmol/L Anion Gap (10-20) BUN (9-20) mg/dL Creatinine (0.8-1.5) mg/dL Est GFR ( Amer) Est GFR (Non-Af Amer) POC Glucose (mg/dL) 170 H 220 H (65-110) mg/dL Random Glucose (75-110) mg/dL Calcium (8.6-10.4) mg/dl Phosphorus (2.5-4.5) mg/dL Magnesium (1.6-2.3) mg/dL Total Bilirubin (0.2-1.3) mg/dL AST (17-59) U/L ALT (21-72) U/L Alkaline Phosphatase (38-126) U/L Total Protein (6.3-8.3) g/dL Albumin (3.5-5.0) g/dL Globulin (2.2-3.9) gm/dL Albumin/Globulin Ratio (1.0-2.1) Stool Occult Blood (NEGATIVE) 08/19/18 08/19/18 Range/Units 11:23 07:17 WBC (4.8-10.8) K/uL RBC (4.40-5.90) Mil/uL Hgb (12.0-18.0) g/dL Hct (35.0-51.0) % MCV (80.0-94.0) fL MCH (27.0-31.0) pg MCHC (33.0-37.0) g/dL RDW (11.5-14.5) % Plt Count (130-400) K/uL MPV (7.2-11.7) fL Neut % (Auto) (50.0-75.0) % Lymph % (Auto) (20.0-40.0) % Glynn % (Auto) (0.0-10.0) % Eos % (Auto) (0.0-4.0) % Baso % (Auto) (0.0-2.0) % Neut # (Auto) (1.8-7.0) K/uL Lymph # (Auto) (1.0-4.3) K/uL Glynn # (Auto) (0.0-0.8) K/uL Eos # (Auto) (0.0-0.7) K/uL Baso # (Auto) (0.0-0.2) K/uL Neutrophils % (Manual) (50-75) % Lymphocytes % (Manual) (20-40) % Monocytes % (Manual) (0-10) % Eosinophils % (Manual) (0-4) % Platelet Estimate (NORMAL) Polychromasia Hypochromasia (manual) Sodium (132-148) mmol/L Potassium (3.6-5.2) mmol/L Chloride (98-107) mmol/L Carbon Dioxide (22-30) mmol/L Anion Gap (10-20) BUN (9-20) mg/dL Creatinine (0.8-1.5) mg/dL Est GFR ( Amer) Est GFR (Non-Af Amer) POC Glucose (mg/dL) 193 H 138 H (65-110) mg/dL Random Glucose (75-110) mg/dL Calcium (8.6-10.4) mg/dl Phosphorus (2.5-4.5) mg/dL Magnesium (1.6-2.3) mg/dL Total Bilirubin (0.2-1.3) mg/dL AST (17-59) U/L ALT (21-72) U/L Alkaline Phosphatase (38-126) U/L Total Protein (6.3-8.3) g/dL Albumin (3.5-5.0) g/dL Globulin (2.2-3.9) gm/dL Albumin/Globulin Ratio (1.0-2.1) Stool Occult Blood (NEGATIVE) Laboratory Results - last 24 hr 08/19/18 08/19/18 08/19/18 07:17 11:23 16:04 WBC RBC Hgb Hct MCV MCH MCHC RDW Plt Count MPV Neut % (Auto) Lymph % (Auto) Glynn % (Auto) Eos % (Auto) Baso % (Auto) Neut # (Auto) Lymph # (Auto) Glynn # (Auto) Eos # (Auto) Baso # (Auto) Neutrophils % (Manual) Lymphocytes % (Manual) Monocytes % (Manual) Eosinophils % (Manual) Platelet Estimate Polychromasia Hypochromasia (manual) Sodium Potassium Chloride Carbon Dioxide Anion Gap BUN Creatinine Est GFR ( Amer) Est GFR (Non-Af Amer) POC Glucose (mg/dL) 138 H 193 H 220 H Random Glucose Calcium Phosphorus Magnesium Total Bilirubin AST ALT Alkaline Phosphatase Total Protein Albumin Globulin Albumin/Globulin Ratio Stool Occult Blood 08/19/18 08/20/18 08/20/18 21:03 05:52 05:52 WBC 11.6 H RBC 2.94 L Hgb 8.4 L Hct 25.8 L MCV 88.0 MCH 28.5 MCHC 32.4 L RDW 14.1 Plt Count 209 MPV 8.1 Neut % (Auto) 85.1 H Lymph % (Auto) 9.7 L Glynn % (Auto) 3.9 Eos % (Auto) 0.6 Baso % (Auto) 0.7 Neut # (Auto) 9.8 H Lymph # (Auto) 1.1 Glynn # (Auto) 0.5 Eos # (Auto) 0.1 Baso # (Auto) 0.1 Neutrophils % (Manual) 91 H Lymphocytes % (Manual) 6 L Monocytes % (Manual) 2 Eosinophils % (Manual) 1 Platelet Estimate Normal Polychromasia Slight Hypochromasia (manual) Slight Sodium 135 Potassium 3.1 L Chloride 104 Carbon Dioxide 27 Anion Gap 7 L BUN 12 Creatinine 0.6 L Est GFR ( Amer) > 60 Est GFR (Non-Af Amer) > 60 POC Glucose (mg/dL) 170 H Random Glucose 44 L D Calcium 8.2 L Phosphorus 3.9 Magnesium 2.0 Total Bilirubin 0.3 AST 88 H D ALT 201 H Alkaline Phosphatase 184 H Total Protein 5.6 L Albumin 2.5 L Globulin 3.0 Albumin/Globulin Ratio 0.8 L Stool Occult Blood 08/20/18 08/20/18 08/20/18 07:21 07:23 08:20 WBC RBC Hgb Hct MCV MCH MCHC RDW Plt Count MPV Neut % (Auto) Lymph % (Auto) Glynn % (Auto) Eos % (Auto) Baso % (Auto) Neut # (Auto) Lymph # (Auto) Glynn # (Auto) Eos # (Auto) Baso # (Auto) Neutrophils % (Manual) Lymphocytes % (Manual) Monocytes % (Manual) Eosinophils % (Manual) Platelet Estimate Polychromasia Hypochromasia (manual) Sodium Potassium Chloride Carbon Dioxide Anion Gap BUN Creatinine Est GFR ( Amer) Est GFR (Non-Af Amer) POC Glucose (mg/dL) 58 L 60 L 106 Random Glucose Calcium Phosphorus Magnesium Total Bilirubin AST ALT Alkaline Phosphatase Total Protein Albumin Globulin Albumin/Globulin Ratio Stool Occult Blood 08/20/18 08/20/18 11:21 11:39 WBC RBC Hgb Hct MCV MCH MCHC RDW Plt Count MPV Neut % (Auto) Lymph % (Auto) Glynn % (Auto) Eos % (Auto) Baso % (Auto) Neut # (Auto) Lymph # (Auto) Glynn # (Auto) Eos # (Auto) Baso # (Auto) Neutrophils % (Manual) Lymphocytes % (Manual) Monocytes % (Manual) Eosinophils % (Manual) Platelet Estimate Polychromasia Hypochromasia (manual) Sodium Potassium Chloride Carbon Dioxide Anion Gap BUN Creatinine Est GFR ( Amer) Est GFR (Non-Af Amer) POC Glucose (mg/dL) 190 H Random Glucose Calcium Phosphorus Magnesium Total Bilirubin AST ALT Alkaline Phosphatase Total Protein Albumin Globulin Albumin/Globulin Ratio Stool Occult Blood Positive H Fingerstick Blood Sugar Results: 108 Review of Systems - Review of Systems Review of Systems: 12 point ROS obtained and noted in HPI Critical Care Progress Note - Extremities/Vascular Insertion Site: Internal Jugular Vein Does the Patient have a Maria Catheter?: Yes Does the Patient need a Maria Catheter?: Yes Catheter Insertion Criteria: Need for accurate measurement of output in critically ill patient - Prophylaxis GI Prophylaxis GI: Not Indicated - Prophylaxis DVT Prophylaxis DVT: Heparin SQ - Nutrition Nutrition: Nutrition Category Date Time Status Diabetic [Consistent Carbohydrate] [DIET] Diets 08/17/18 Dinner Active Assessment/Plan - Assessment and Plan (Free Text) Assessment: Patient is a 58 yo male w/PMH of prediabetes that is admitted to ICU for low blood pressure and septic shock. Neuro AAOx3, responsive to questioning, no acute issues Pulm no acute issues maintain spo2>92% CV off levophed, bp normal Endo ISS sliding scale; Glargine 15 units; Sugars under control A1C 10.8 GI Transaminitis trending down, etiology shock liver vs cirrhosis (history of cirrhosis and etoh does not correlate) Cirrhosis workup pending- [place] GI following Occ blood positive- recommend outpt CSPY Heme Anemia of chronic disease- patient may benefit from outpatient cspy Renal NS @ 75mls/hr KCl 20meq x 3 Folic acid/MV/Thiamine ID Elevated lactate, repeat lactate downtrending Empiric abx via Vanc/Meropenem +cx for streptococcus anginosus DVT ppx: SCDs, Hep 5000 q 12 GI ppx: Not indicated at this time Disposition: Cirrhosis workup, Continue IV abx, continue DM managment, trend lfts PGY-1 Enrique Dye Medical Management discussed w/ Dr. Miles <Arabella Dennis - Last Filed: 08/20/18 20:33> CCU Subjective - Physician Review Events Since Last Encounter (Free Text): 08/20/18 20:32 Patient seen and examined in the ICU. He is clinically better. Patient is off levo fed at this time. Patient can be discharged to telemetry. I agree with resident note. CCU Objective - Vital Signs / Intake & Output Vital Signs (Last 4 hours): Vital Signs Pulse Resp BP Pulse Ox 08/20/18 18:19 76 15 125/82 08/20/18 18:00 68 23 99 08/20/18 17:05 71 27 H 139/70 100 08/20/18 17:00 69 16 100 Intake and Output (Last 8hrs): Intake & Output 08/20/18 08/20/18 08/20/18 06:59 14:59 22:59 Intake Total 820.5 1900 700 Output Total 1000 550 Balance -179.5 1350 700 Weight 153 lb 3.2 oz Intake: Intake, IV Amount 670.5 800 400 RAC #18 100 Right Medial Port 670.5 800 300 Internal Jugular Oral 150 1100 300 Output: Urine 1000 550 Urine, Voided 1000 550 Other: # Bowel Movements 1 - Medications Active Medications: Active Medications Generic Name Dose Route Start Last Admin Trade Name Freq PRN Reason Stop Dose Admin Acetaminophen 650 mg 08/17/18 18:26 Tylenol 325mg Tab PO Q6 PRN Fever >100.4 F Folic Acid 1 mg 08/19/18 13:15 08/20/18 09:23 Folic Acid PO 1 mg DAILY EDER Administration Heparin Sodium (Porcine) 5,000 units 08/17/18 22:00 08/20/18 09:15 Heparin SC 5,000 units Q12 EDER Administration Norepinephrine Bitartrate 4 mg 254 mls @ 15.24 mls/hr 08/17/18 18:26 08/19/18 12:01 / Dextrose IV 0 mcg/min .[id number] PRN 0 mls/hr TITRATE PER MD ORDER Titration Protocol 4 MCG/MIN Vancomycin HCl 1,000 mg/ 250 mls @ 166.6 mls/hr 08/18/18 11:00 08/20/18 11:37 Sodium Chloride IVPB 166.6 mls/hr Q12H EDER Administration Protocol Sodium Chloride 1,000 mls @ 75 mls/hr 08/18/18 10:34 08/20/18 19:00 Sodium Chloride 0.9% IV 75 mls/hr .[id number] EDER Administration Meropenem 500 mg/ Sodium 100 mls @ 100 mls/hr 08/18/18 12:30 08/20/18 19:57 Chloride IVPB 100 mls/hr Q8H EDER Administration Protocol Insulin Glargine 15 unit 08/18/18 22:00 08/19/18 21:44 Lantus SC 15 unit HS EDER Administration Insulin Human Regular 0 unit 08/17/18 22:00 08/20/18 16:30 Novolin R SC Not Given ACHS EDER Protocol Multivitamins 1 tab 08/20/18 10:00 08/20/18 09:15 Hexavitamin PO 1 tab DAILY EDER Administration Thiamine HCl 100 mg 08/19/18 13:15 08/20/18 09:15 Vitamin B1 Tab PO 100 mg DAILY EDER Administration - Patient Studies Lab Studies: Microbiology Studies 08/17/18 16:00 Blood Culture - Final Blood-Venous Streptococcus anginosus group Gram Stain - Final 08/17/18 15:10 Blood Culture - Final Blood-Venous Streptococcus anginosus group Gram Stain - Final Lab Studies 08/20/18 08/20/18 08/20/18 Range/Units 16:44 15:23 11:39 WBC (4.8-10.8) K/uL RBC (4.40-5.90) Mil/uL Hgb (12.0-18.0) g/dL Hct (35.0-51.0) % MCV (80.0-94.0) fL MCH (27.0-31.0) pg MCHC (33.0-37.0) g/dL RDW (11.5-14.5) % Plt Count (130-400) K/uL MPV (7.2-11.7) fL Neut % (Auto) (50.0-75.0) % Lymph % (Auto) (20.0-40.0) % Glynn % (Auto) (0.0-10.0) % Eos % (Auto) (0.0-4.0) % Baso % (Auto) (0.0-2.0) % Neut # (Auto) (1.8-7.0) K/uL Lymph # (Auto) (1.0-4.3) K/uL Glynn # (Auto) (0.0-0.8) K/uL Eos # (Auto) (0.0-0.7) K/uL Baso # (Auto) (0.0-0.2) K/uL Neutrophils % (Manual) (50-75) % Lymphocytes % (Manual) (20-40) % Monocytes % (Manual) (0-10) % Eosinophils % (Manual) (0-4) % Platelet Estimate (NORMAL) Polychromasia Hypochromasia (manual) PT 14.5 H (9.7-12.2) SECONDS INR 1.3 Sodium (132-148) mmol/L Potassium (3.6-5.2) mmol/L Chloride (98-107) mmol/L Carbon Dioxide (22-30) mmol/L Anion Gap (10-20) BUN (9-20) mg/dL Creatinine (0.8-1.5) mg/dL Est GFR ( Amer) Est GFR (Non-Af Amer) POC Glucose (mg/dL) 107 (65-110) mg/dL Random Glucose (75-110) mg/dL Calcium (8.6-10.4) mg/dl Phosphorus (2.5-4.5) mg/dL Magnesium (1.6-2.3) mg/dL Total Bilirubin (0.2-1.3) mg/dL AST (17-59) U/L ALT (21-72) U/L Alkaline Phosphatase (38-126) U/L Total Protein (6.3-8.3) g/dL Albumin (3.5-5.0) g/dL Globulin (2.2-3.9) gm/dL Albumin/Globulin Ratio (1.0-2.1) Stool Occult Blood Positive H (NEGATIVE) 08/20/18 08/20/18 08/20/18 Range/Units 11:21 08:20 07:23 WBC (4.8-10.8) K/uL RBC (4.40-5.90) Mil/uL Hgb (12.0-18.0) g/dL Hct (35.0-51.0) % MCV (80.0-94.0) fL MCH (27.0-31.0) pg MCHC (33.0-37.0) g/dL RDW (11.5-14.5) % Plt Count (130-400) K/uL MPV (7.2-11.7) fL Neut % (Auto) (50.0-75.0) % Lymph % (Auto) (20.0-40.0) % Glynn % (Auto) (0.0-10.0) % Eos % (Auto) (0.0-4.0) % Baso % (Auto) (0.0-2.0) % Neut # (Auto) (1.8-7.0) K/uL Lymph # (Auto) (1.0-4.3) K/uL Glynn # (Auto) (0.0-0.8) K/uL Eos # (Auto) (0.0-0.7) K/uL Baso # (Auto) (0.0-0.2) K/uL Neutrophils % (Manual) (50-75) % Lymphocytes % (Manual) (20-40) % Monocytes % (Manual) (0-10) % Eosinophils % (Manual) (0-4) % Platelet Estimate (NORMAL) Polychromasia Hypochromasia (manual) PT (9.7-12.2) SECONDS INR Sodium (132-148) mmol/L Potassium (3.6-5.2) mmol/L Chloride (98-107) mmol/L Carbon Dioxide (22-30) mmol/L Anion Gap (10-20) BUN (9-20) mg/dL Creatinine (0.8-1.5) mg/dL Est GFR ( Amer) Est GFR (Non-Af Amer) POC Glucose (mg/dL) 190 H 106 60 L (65-110) mg/dL Random Glucose (75-110) mg/dL Calcium (8.6-10.4) mg/dl Phosphorus (2.5-4.5) mg/dL Magnesium (1.6-2.3) mg/dL Total Bilirubin (0.2-1.3) mg/dL AST (17-59) U/L ALT (21-72) U/L Alkaline Phosphatase (38-126) U/L Total Protein (6.3-8.3) g/dL Albumin (3.5-5.0) g/dL Globulin (2.2-3.9) gm/dL Albumin/Globulin Ratio (1.0-2.1) Stool Occult Blood (NEGATIVE) 08/20/18 08/20/18 08/20/18 Range/Units 07:21 05:52 05:52 WBC 11.6 H (4.8-10.8) K/uL RBC 2.94 L (4.40-5.90) Mil/uL Hgb 8.4 L (12.0-18.0) g/dL Hct 25.8 L (35.0-51.0) % MCV 88.0 (80.0-94.0) fL MCH 28.5 (27.0-31.0) pg MCHC 32.4 L (33.0-37.0) g/dL RDW 14.1 (11.5-14.5) % Plt Count 209 (130-400) K/uL MPV 8.1 (7.2-11.7) fL Neut % (Auto) 85.1 H (50.0-75.0) % Lymph % (Auto) 9.7 L (20.0-40.0) % Glynn % (Auto) 3.9 (0.0-10.0) % Eos % (Auto) 0.6 (0.0-4.0) % Baso % (Auto) 0.7 (0.0-2.0) % Neut # (Auto) 9.8 H (1.8-7.0) K/uL Lymph # (Auto) 1.1 (1.0-4.3) K/uL Glynn # (Auto) 0.5 (0.0-0.8) K/uL Eos # (Auto) 0.1 (0.0-0.7) K/uL Baso # (Auto) 0.1 (0.0-0.2) K/uL Neutrophils % (Manual) 91 H (50-75) % Lymphocytes % (Manual) 6 L (20-40) % Monocytes % (Manual) 2 (0-10) % Eosinophils % (Manual) 1 (0-4) % Platelet Estimate Normal (NORMAL) Polychromasia Slight Hypochromasia (manual) Slight PT (9.7-12.2) SECONDS INR Sodium 135 (132-148) mmol/L Potassium 3.1 L (3.6-5.2) mmol/L Chloride 104 (98-107) mmol/L Carbon Dioxide 27 (22-30) mmol/L Anion Gap 7 L (10-20) BUN 12 (9-20) mg/dL Creatinine 0.6 L (0.8-1.5) mg/dL Est GFR ( Amer) > 60 Est GFR (Non-Af Amer) > 60 POC Glucose (mg/dL) 58 L (65-110) mg/dL Random Glucose 44 L D (75-110) mg/dL Calcium 8.2 L (8.6-10.4) mg/dl Phosphorus 3.9 (2.5-4.5) mg/dL Magnesium 2.0 (1.6-2.3) mg/dL Total Bilirubin 0.3 (0.2-1.3) mg/dL AST 88 H D (17-59) U/L ALT 201 H (21-72) U/L Alkaline Phosphatase 184 H (38-126) U/L Total Protein 5.6 L (6.3-8.3) g/dL Albumin 2.5 L (3.5-5.0) g/dL Globulin 3.0 (2.2-3.9) gm/dL Albumin/Globulin Ratio 0.8 L (1.0-2.1) Stool Occult Blood (NEGATIVE) 08/19/18 Range/Units 21:03 WBC (4.8-10.8) K/uL RBC (4.40-5.90) Mil/uL Hgb (12.0-18.0) g/dL Hct (35.0-51.0) % MCV (80.0-94.0) fL MCH (27.0-31.0) pg MCHC (33.0-37.0) g/dL RDW (11.5-14.5) % Plt Count (130-400) K/uL MPV (7.2-11.7) fL Neut % (Auto) (50.0-75.0) % Lymph % (Auto) (20.0-40.0) % Glynn % (Auto) (0.0-10.0) % Eos % (Auto) (0.0-4.0) % Baso % (Auto) (0.0-2.0) % Neut # (Auto) (1.8-7.0) K/uL Lymph # (Auto) (1.0-4.3) K/uL Glynn # (Auto) (0.0-0.8) K/uL Eos # (Auto) (0.0-0.7) K/uL Baso # (Auto) (0.0-0.2) K/uL Neutrophils % (Manual) (50-75) % Lymphocytes % (Manual) (20-40) % Monocytes % (Manual) (0-10) % Eosinophils % (Manual) (0-4) % Platelet Estimate (NORMAL) Polychromasia Hypochromasia (manual) PT (9.7-12.2) SECONDS INR Sodium (132-148) mmol/L Potassium (3.6-5.2) mmol/L Chloride (98-107) mmol/L Carbon Dioxide (22-30) mmol/L Anion Gap (10-20) BUN (9-20) mg/dL Creatinine (0.8-1.5) mg/dL Est GFR ( Amer) Est GFR (Non-Af Amer) POC Glucose (mg/dL) 170 H (65-110) mg/dL Random Glucose (75-110) mg/dL Calcium (8.6-10.4) mg/dl Phosphorus (2.5-4.5) mg/dL Magnesium (1.6-2.3) mg/dL Total Bilirubin (0.2-1.3) mg/dL AST (17-59) U/L ALT (21-72) U/L Alkaline Phosphatase (38-126) U/L Total Protein (6.3-8.3) g/dL Albumin (3.5-5.0) g/dL Globulin (2.2-3.9) gm/dL Albumin/Globulin Ratio (1.0-2.1) Stool Occult Blood (NEGATIVE) Laboratory Results - last 24 hr 08/19/18 08/20/18 08/20/18 21:03 05:52 05:52 WBC 11.6 H RBC 2.94 L Hgb 8.4 L Hct 25.8 L MCV 88.0 MCH 28.5 MCHC 32.4 L RDW 14.1 Plt Count 209 MPV 8.1 Neut % (Auto) 85.1 H Lymph % (Auto) 9.7 L Glynn % (Auto) 3.9 Eos % (Auto) 0.6 Baso % (Auto) 0.7 Neut # (Auto) 9.8 H Lymph # (Auto) 1.1 Glynn # (Auto) 0.5 Eos # (Auto) 0.1 Baso # (Auto) 0.1 Neutrophils % (Manual) 91 H Lymphocytes % (Manual) 6 L Monocytes % (Manual) 2 Eosinophils % (Manual) 1 Platelet Estimate Normal Polychromasia Slight Hypochromasia (manual) Slight PT INR Sodium 135 Potassium 3.1 L Chloride 104 Carbon Dioxide 27 Anion Gap 7 L BUN 12 Creatinine 0.6 L Est GFR ( Amer) > 60 Est GFR (Non-Af Amer) > 60 POC Glucose (mg/dL) 170 H Random Glucose 44 L D Calcium 8.2 L Phosphorus 3.9 Magnesium 2.0 Total Bilirubin 0.3 AST 88 H D ALT 201 H Alkaline Phosphatase 184 H Total Protein 5.6 L Albumin 2.5 L Globulin 3.0 Albumin/Globulin Ratio 0.8 L Stool Occult Blood 08/20/18 08/20/18 08/20/18 07:21 07:23 08:20 WBC RBC Hgb Hct MCV MCH MCHC RDW Plt Count MPV Neut % (Auto) Lymph % (Auto) Glynn % (Auto) Eos % (Auto) Baso % (Auto) Neut # (Auto) Lymph # (Auto) Glynn # (Auto) Eos # (Auto) Baso # (Auto) Neutrophils % (Manual) Lymphocytes % (Manual) Monocytes % (Manual) Eosinophils % (Manual) Platelet Estimate Polychromasia Hypochromasia (manual) PT INR Sodium Potassium Chloride Carbon Dioxide Anion Gap BUN Creatinine Est GFR ( Amer) Est GFR (Non-Af Amer) POC Glucose (mg/dL) 58 L 60 L 106 Random Glucose Calcium Phosphorus Magnesium Total Bilirubin AST ALT Alkaline Phosphatase Total Protein Albumin Globulin Albumin/Globulin Ratio Stool Occult Blood 08/20/18 08/20/18 08/20/18 11:21 11:39 15:23 WBC RBC Hgb Hct MCV MCH MCHC RDW Plt Count MPV Neut % (Auto) Lymph % (Auto) Glynn % (Auto) Eos % (Auto) Baso % (Auto) Neut # (Auto) Lymph # (Auto) Glynn # (Auto) Eos # (Auto) Baso # (Auto) Neutrophils % (Manual) Lymphocytes % (Manual) Monocytes % (Manual) Eosinophils % (Manual) Platelet Estimate Polychromasia Hypochromasia (manual) PT 14.5 H INR 1.3 Sodium Potassium Chloride Carbon Dioxide Anion Gap BUN Creatinine Est GFR ( Amer) Est GFR (Non-Af Amer) POC Glucose (mg/dL) 190 H Random Glucose Calcium Phosphorus Magnesium Total Bilirubin AST ALT Alkaline Phosphatase Total Protein Albumin Globulin Albumin/Globulin Ratio Stool Occult Blood Positive H 08/20/18 16:44 WBC RBC Hgb Hct MCV MCH MCHC RDW Plt Count MPV Neut % (Auto) Lymph % (Auto) Glynn % (Auto) Eos % (Auto) Baso % (Auto) Neut # (Auto) Lymph # (Auto) Glynn # (Auto) Eos # (Auto) Baso # (Auto) Neutrophils % (Manual) Lymphocytes % (Manual) Monocytes % (Manual) Eosinophils % (Manual) Platelet Estimate Polychromasia Hypochromasia (manual) PT INR Sodium Potassium Chloride Carbon Dioxide Anion Gap BUN Creatinine Est GFR ( Amer) Est GFR (Non-Af Amer) POC Glucose (mg/dL) 107 Random Glucose Calcium Phosphorus Magnesium Total Bilirubin AST ALT Alkaline Phosphatase Total Protein Albumin Globulin Albumin/Globulin Ratio Stool Occult Blood Critical Care Progress Note - Nutrition Nutrition: Nutrition Category Date Time Status Diabetic [Consistent Carbohydrate] [DIET] Diets 08/17/18 Dinner Active
--- NOTE | 2018-08-20 14:03 | CP.PCM.PN ---
Subjective - Date & Time of Evaluation Date of Evaluation: 08/20/18 Time of Evaluation: 14:01 - Subjective Subjective: CHIEF COMPLAINTS TODAY : Patient has no specific complaints. ROS. HEENT : N. Resp : No cough, wheezing ,pleuritic CP ,or hemoptysis Cardio : No anginal CP, PND, orthopnea, palpitation GI : No abd.pain, n/v ,diarrhea or GI bleeding . OTHER SPORTS OFFICIAL : No headache, vertigo, focal deficit. Musculoskel : No joint swelling , Derm : No rash Psych : Normal affect. Ext : No swelling ,calf pain PE. Pt. is alert awake in no distress. V.S As noted in the chart Head ,ear nose,throat and eyes : Normal. Neck : Supple with normal carotids. Lungs: Clear air entry. Heart : S1 & S2 normal with S4. No murmur. Abd : Soft non tender with normal bowel sounds. Neuro : Moves all ext. with no localized deficit. Ext : edema with intact pulses.Non tender calves Derm : No rashes or decubitus ulcer. LABS/RADIOLOGY: ASSESSMENT/PLAN : Patient was evaluated by GI service undergoing test. The white counts is trending downwards afebrile off the Levophed Blood culture shows Streptococcus angiosis Liver function improving. echocardiogram shows no vegetation Objective - Vital Signs/Intake and Output Vital Signs (last 24 hours): Temp Pulse Resp BP Pulse Ox 98.5 F 66 26 H 115/77 100 08/20/18 04:00 08/20/18 13:04 08/20/18 13:04 08/20/18 13:04 08/20/18 13:04 Intake and Output: 08/20/18 08/20/18 11:59 23:59 Intake Total 1850 750 Output Total 1550 Balance 300 750 - Medications Medications: Current Medications Acetaminophen (Tylenol 325mg Tab) 650 mg PO Q6 PRN PRN Reason: Fever >100.4 F Folic Acid (Folic Acid) 1 mg PO DAILY [facility] Last Admin: 08/20/18 09:23 Dose: 1 mg Heparin Sodium (Porcine) (Heparin) 5,000 units SC Q12 [facility] Last Admin: 08/20/18 09:15 Dose: 5,000 units Norepinephrine Bitartrate 4 mg (/ Dextrose) 254 mls @ 15.24 mls/hr IV .[id number] PRN; Protocol PRN Reason: TITRATE PER MD ORDER Last Titration: 08/19/18 12:01 Dose: 0 mcg/min, 0 mls/hr Vancomycin HCl 1,000 mg/ (Sodium Chloride) 250 mls @ 166.6 mls/hr IVPB Q12H [facility]; Protocol Last Admin: 08/19/18 22:00 Dose: 166.6 mls/hr Sodium Chloride (Sodium Chloride 0.9%) 1,000 mls @ 75 mls/hr IV .[id number] [facility] Last Admin: 08/20/18 02:41 Dose: Not Given Meropenem 500 mg/ Sodium (Chloride) 100 mls @ 100 mls/hr IVPB Q8H [facility]; Protocol Last Admin: 08/20/18 04:12 Dose: 100 mls/hr Potassium Chloride (Potassium Chloride 20 Meq/100 Ml) 20 meq in 100 mls @ 50 mls/hr IVPB Q2H [facility] Stop: 08/20/18 14:59 Last Admin: 08/20/18 09:15 Dose: 50 mls/hr Insulin Glargine (Lantus) 15 unit SC HS [facility] Last Admin: 08/19/18 21:44 Dose: 15 unit Insulin Human Regular (Novolin R) 0 unit SC ACHS [facility]; Protocol Last Admin: 08/20/18 11:30 Dose: Not Given Multivitamins (Hexavitamin) 1 tab PO DAILY [facility] Last Admin: 08/20/18 09:15 Dose: 1 tab Thiamine HCl (Vitamin B1 Tab) 100 mg PO DAILY [facility] Last Admin: 08/20/18 09:15 Dose: 100 mg - Labs Labs: 08/20/18 05:52 08/20/18 05:52 Assessment and Plan (1) Sepsis associated hypotension Status: Acute (2) Diabetes mellitus Status: Acute (3) Weight loss Status: Acute
[2018-08-20 15:36] LABS: INR 1.3; PROTHROMBIN TIME 14.5 SECONDS (9.7-12.2)
--- NOTE | 2018-08-20 18:22 | CP.PCM.PN ---
Subjective - Date & Time of Evaluation Date of Evaluation: 08/20/18 Time of Evaluation: 18:22 - Subjective Subjective: AFEBRILE, DOING WELL, STILL WEAK/PALE SEEN BY GI AND NOTED. +VE BLOOD CULURES STREPTOCOCCUS SANGUINOUS 2:2 SETS.SOURCE NOT CLEAR ? DENTAL VS INTRA ABDOMINAL ( GALLSTONES -WITH EDEMA/PERICHOLYCYSTIC FLUID ) ROS. HEENT : N. Resp : No cough, wheezing ,pleuritic CP ,or hemoptysis Cardio : No anginal CP, PND, orthopnea, palpitation GI : No abd.pain, n/v ,diarrhea or GI bleeding . C D STRIPPER : No headache, vertigo, focal deficit. Musculoskel : No joint swelling , Derm : No rash Psych : Normal affect. Ext : No swelling ,calf pain PE. Pt. is alert awake in no distress. V.S As noted in the chart Head ,ear nose,throat and eyes : Normal. Neck : Supple with normal carotids. Lungs: BASILAR RHONCHI Heart : S1 & S2 normal with S4. No murmur. Abd : Soft non tender with normal bowel sounds.NO HEPATOSPLENOMEGALY Neuro : Moves all ext. with no localized deficit. Ext : 2+ EDEMA LE with intact pulses. Non tender calves Derm : No rashes or decubitus ulcer. LABS reviewed LEUKOCYTOSIS IMPROVING lftS IMPROVING.? SHOCK LIVER VS GALLSTONES PLAN ; CONTINUE IV ABX PT ON IV VANCOMYCIN 1GM IVPB Q 12HRLY. IV MERREM 500MG IV Q 8HRLY. WE WILL GET A CT OF THE ABDOMEN AND PELVIS WOUT/ W CONTRAST R/O COLLECTION. ABSCESS VERSUS RETROPERITONEAL LYMPHADENOPATHY R/O LYMPHOMA. HIV 1 AND 2 ANTIBODY SCREEN PENDING. F/U 2-D ECHO R/O VEGETATIONS. ESR C2/C4/CH50 RHEUMATOID FACTOR. VANCO TROUGH TODAY AT 10.00 PM AND NOTIFY (KEEP BETWEEN 10- 20MG/ML ) GI WORKUP IN PROGRESS Objective - Vital Signs/Intake and Output Vital Signs (last 24 hours): Temp Pulse Resp BP Pulse Ox 98.5 F 71 27 H 139/70 100 08/20/18 04:00 08/20/18 17:05 08/20/18 17:05 08/20/18 17:05 08/20/18 17:05 Intake and Output: 08/20/18 08/20/18 06:59 18:59 Intake Total 1237.5 2425 Output Total 1000 550 Balance 237.5 1875 - Medications Medications: Current Medications Acetaminophen (Tylenol 325mg Tab) 650 mg PO Q6 PRN PRN Reason: Fever >100.4 F Folic Acid (Folic Acid) 1 mg PO DAILY [facility] Last Admin: 08/20/18 09:23 Dose: 1 mg Heparin Sodium (Porcine) (Heparin) 5,000 units SC Q12 [facility] Last Admin: 08/20/18 09:15 Dose: 5,000 units Norepinephrine Bitartrate 4 mg (/ Dextrose) 254 mls @ 15.24 mls/hr IV .[id number] PRN; Protocol PRN Reason: TITRATE PER MD ORDER Last Titration: 08/19/18 12:01 Dose: 0 mcg/min, 0 mls/hr Vancomycin HCl 1,000 mg/ (Sodium Chloride) 250 mls @ 166.6 mls/hr IVPB Q12H [facility]; Protocol Last Admin: 08/20/18 11:37 Dose: 166.6 mls/hr Sodium Chloride (Sodium Chloride 0.9%) 1,000 mls @ 75 mls/hr IV .[id number] [facility] Last Admin: 08/20/18 02:41 Dose: Not Given Meropenem 500 mg/ Sodium (Chloride) 100 mls @ 100 mls/hr IVPB Q8H [facility]; Protocol Last Admin: 08/20/18 13:20 Dose: 100 mls/hr Insulin Glargine (Lantus) 15 unit SC HS [facility] Last Admin: 08/19/18 21:44 Dose: 15 unit Insulin Human Regular (Novolin R) 0 unit SC ACHS [facility]; Protocol Last Admin: 08/20/18 16:30 Dose: Not Given Multivitamins (Hexavitamin) 1 tab PO DAILY [facility] Last Admin: 08/20/18 09:15 Dose: 1 tab Thiamine HCl (Vitamin B1 Tab) 100 mg PO DAILY [facility] Last Admin: 08/20/18 09:15 Dose: 100 mg - Labs Labs: 08/20/18 05:52 08/20/18 05:52 PT 14.5 SECONDS (9.7-12.2) H 08/20/18 15:23 INR 1.3 08/20/18 15:23 Assessment and Plan (1) Sepsis associated hypotension Status: Acute (2) Gram positive septicemia Status: Acute (3) Hyperpyrexia Status: Acute (4) Diabetes mellitus Status: Acute (5) Weight loss Status: Acute (6) Anemia Status: Acute
[2018-08-20] MEDS: (Lantus) Insulin Glargine, Recombinant SC SCH (22:18)
[2018-08-21] MEDS: Meropenem 500 MG in Sodium Chloride 0.9% 100 ML IVPB SCH ×3 (05:07→21:15)
[2018-08-21] MEDS: Sodium Chloride 0.9% 1,000 ML IV SCH ×3 (05:16→18:26)
[2018-08-21 06:24] LABS: BASO % 0.5 % (0.0-2.0); EOS # 0.2 K/uL (0.0-0.7); EOS % 2.6 % (0.0-4.0); HEMOGLOBIN 7.8 g/dL (12.0-18.0); LYMPH # 1.5 K/uL (1.0-4.3); LYMPH % 21.4 % (20.0-40.0); MEAN CELL VOLUME 87.3 fL (80.0-94.0); MEAN CORPUSCULAR HGB CONC 32.1 g/dL (33.0-37.0); MEAN PLATELET VOLUME 8.3 fL (7.2-11.7); MONO # 0.4 K/uL (0.0-0.8); MONO % 5.9 % (0.0-10.0); NEUT # 4.9 K/uL (1.8-7.0); NEUT % 69.6 % (50.0-75.0); RBC 2.8 Mil/uL (4.40-5.90); RED CELL DISTRIBUTION WIDTH 14.1 % (11.5-14.5)
[2018-08-21 06:50] LABS: ALB/GLOB RATIO 0.8 (1.0-2.1); ALBUMIN 2.3 g/dL (3.5-5.0); ALT/SGPT 125 U/L (21-72); AST/SGOT 30 U/L (17-59); BILIRUBIN,DIRECT 0.2 mg/dL (0.0-0.4); BLOOD UREA NITROGEN 10 mg/dL (9-20); CALCIUM 8.4 mg/dl (8.6-10.4); GFR NON-AFRICAN AMERICAN > 60
[2018-08-21] MEDS: (Novolin R) Insulin Human Regular 100 units/ml vial SC SCH ×4 (08:01→21:44)
[2018-08-21] MEDS: Multiple Vitamins Tab PO SCH (09:34)
--- NOTE | 2018-08-21 12:33 | CP.PCM.PN ---
Subjective - Date & Time of Evaluation Date of Evaluation: 08/21/18 Time of Evaluation: 12:30 - Subjective Subjective: f/u anemia Reports bertter appetitis. Denies abdom pain, chills, CORONADO, hemoptysis, hematuria, RB, melena, const, diarrh Objective - Vital Signs/Intake and Output Vital Signs (last 24 hours): Temp Pulse Resp BP Pulse Ox 98.3 F 74 22 104/66 95 08/21/18 08:00 08/21/18 08:00 08/21/18 08:00 08/21/18 08:00 08/21/18 08:00 Intake and Output: 08/21/18 08/21/18 06:59 18:59 Intake Total 1338 Output Total 1050 500 Balance 288 -500 - Medications Medications: Current Medications Acetaminophen (Tylenol 325mg Tab) 650 mg PO Q6 PRN PRN Reason: Fever >100.4 F Folic Acid (Folic Acid) 1 mg PO DAILY [facility] Last Admin: 08/21/18 09:34 Dose: 1 mg Heparin Sodium (Porcine) (Heparin) 5,000 units SC Q12 [facility] Last Admin: 08/20/18 22:24 Dose: 5,000 units Norepinephrine Bitartrate 4 mg (/ Dextrose) 254 mls @ 15.24 mls/hr IV .[id number] PRN; Protocol PRN Reason: TITRATE PER MD ORDER Last Titration: 08/19/18 12:01 Dose: 0 mcg/min, 0 mls/hr Vancomycin HCl 1,000 mg/ (Sodium Chloride) 250 mls @ 166.6 mls/hr IVPB Q12H [facility]; Protocol Last Admin: 08/21/18 11:23 Dose: 166.6 mls/hr Sodium Chloride (Sodium Chloride 0.9%) 1,000 mls @ 75 mls/hr IV .[id number] [facility] Last Admin: 08/21/18 05:16 Dose: Not Given Meropenem 500 mg/ Sodium (Chloride) 100 mls @ 100 mls/hr IVPB Q8H [facility]; Protocol Last Admin: 08/21/18 05:07 Dose: 100 mls/hr Insulin Glargine (Lantus) 15 unit SC HS [facility] Last Admin: 08/20/18 22:18 Dose: Not Given Insulin Human Regular (Novolin R) 0 unit SC ACHS [facility]; Protocol Last Admin: 08/21/18 08:01 Dose: Not Given Multivitamins (Hexavitamin) 1 tab PO DAILY [facility] Last Admin: 08/21/18 09:34 Dose: 1 tab Thiamine HCl (Vitamin B1 Tab) 100 mg PO DAILY [facility] Last Admin: 08/21/18 09:34 Dose: 100 mg - Labs Labs: 08/21/18 06:10 08/21/18 06:10 PT 14.5 SECONDS (9.7-12.2) H 08/20/18 15:23 INR 1.3 08/20/18 15:23 - Constitutional Appears: Non-toxic - Respiratory Exam Respiratory Exam: Rhonchi - GI/Abdominal Exam GI & Abdominal Exam: Soft, Normal Bowel Sounds. absent: Tenderness, Mass, Rebound - Extremities Exam Extremities Exam: absent: Calf Tenderness - Neurological Exam Neurological Exam: Alert, Awake, Oriented x3 Assessment and Plan (1) Cirrhosis Assessment & Plan: nodular liver on imaging. Check labs. Status: Acute (2) Anemia Assessment & Plan: chr. But g pos. Will need colonosocpy in future. Discussed with patient. Status: Acute (3) Diabetes mellitus Status: Acute (4) Gram positive septicemia Status: Acute (5) Sepsis associated hypotension Status: Acute (6) Transaminitis Assessment & Plan: shock liver Status: Acute (7) Weight loss Status: Acute
--- NOTE | 2018-08-21 12:37 | CP.PCM.PN ---
Subjective - Date & Time of Evaluation Date of Evaluation: 08/21/18 Time of Evaluation: 12:35 - Subjective Subjective: CHIEF COMPLAINTS TODAY : Patient has no specific complaints. ROS. HEENT : N. Resp : No cough, wheezing ,pleuritic CP ,or hemoptysis Cardio : No anginal CP, PND, orthopnea, palpitation GI : No abd.pain, n/v ,diarrhea or GI bleeding . RADIOLOGY PHYSICIAN : No headache, vertigo, focal deficit. Musculoskel : No joint swelling , Derm : No rash Psych : Normal affect. Ext : No swelling ,calf pain PE. Pt. is alert awake in no distress. V.S As noted in the chart Head ,ear nose,throat and eyes : Normal. Neck : Supple with normal carotids. Lungs: Clear air entry. Heart : S1 & S2 normal with S4. No murmur. Abd : Soft non tender with normal bowel sounds. Neuro : Moves all ext. with no localized deficit. Ext : edema with intact pulses.Non tender calves Derm : No rashes or decubitus ulcer. LABS/RADIOLOGY: ASSESSMENT/PLAN : Hemoglobin is still at 7.8, stool occult blood is positive GI service noted colonoscopy as outpatient as the process could be chronic blood loss. Continue IV antibiotics. Patient is improving sepsis is clearing white count is trending down patient's appetite is improving. Objective - Vital Signs/Intake and Output Vital Signs (last 24 hours): Temp Pulse Resp BP Pulse Ox 98.3 F 74 22 104/66 95 08/21/18 08:00 08/21/18 08:00 08/21/18 08:00 08/21/18 08:00 08/21/18 08:00 Intake and Output: 08/21/18 08/21/18 11:59 23:59 Intake Total 838 Output Total 1250 Balance -412 - Medications Medications: Current Medications Acetaminophen (Tylenol 325mg Tab) 650 mg PO Q6 PRN PRN Reason: Fever >100.4 F Folic Acid (Folic Acid) 1 mg PO DAILY [facility] Last Admin: 08/21/18 09:34 Dose: 1 mg Heparin Sodium (Porcine) (Heparin) 5,000 units SC Q12 [facility] Last Admin: 08/20/18 22:24 Dose: 5,000 units Norepinephrine Bitartrate 4 mg (/ Dextrose) 254 mls @ 15.24 mls/hr IV .[id number] PRN; Protocol PRN Reason: TITRATE PER MD ORDER Last Titration: 08/19/18 12:01 Dose: 0 mcg/min, 0 mls/hr Vancomycin HCl 1,000 mg/ (Sodium Chloride) 250 mls @ 166.6 mls/hr IVPB Q12H [facility]; Protocol Last Admin: 08/21/18 11:23 Dose: 166.6 mls/hr Sodium Chloride (Sodium Chloride 0.9%) 1,000 mls @ 75 mls/hr IV .[id number] [facility] Last Admin: 08/21/18 05:16 Dose: Not Given Meropenem 500 mg/ Sodium (Chloride) 100 mls @ 100 mls/hr IVPB Q8H [facility]; Protocol Last Admin: 08/21/18 05:07 Dose: 100 mls/hr Insulin Glargine (Lantus) 15 unit SC HS [facility] Last Admin: 08/20/18 22:18 Dose: Not Given Insulin Human Regular (Novolin R) 0 unit SC ACHS [facility]; Protocol Last Admin: 08/21/18 08:01 Dose: Not Given Multivitamins (Hexavitamin) 1 tab PO DAILY [facility] Last Admin: 08/21/18 09:34 Dose: 1 tab Thiamine HCl (Vitamin B1 Tab) 100 mg PO DAILY [facility] Last Admin: 08/21/18 09:34 Dose: 100 mg - Labs Labs: 08/21/18 06:10 08/21/18 06:10 PT 14.5 SECONDS (9.7-12.2) H 08/20/18 15:23 INR 1.3 08/20/18 15:23 Assessment and Plan (1) Sepsis associated hypotension Status: Acute (2) Diabetes mellitus Status: Acute (3) Weight loss Status: Acute
--- NOTE | 2018-08-21 12:39 | CP.PCM.PN ---
Subjective - Date & Time of Evaluation Date of Evaluation: 08/21/18 Time of Evaluation: 12:39 - Subjective Subjective: afebrile states feeling alright PT FOR CT ABD/PELVIS TODAY -P ROS. HEENT : N. Resp : No cough, wheezing ,pleuritic CP ,or hemoptysis Cardio : No anginal CP, PND, orthopnea, palpitation GI : No abd.pain, n/v ,diarrhea or GI bleeding . INFORMATICS PHYSICIAN LIAISON : No headache, vertigo, focal deficit. Musculoskel : No joint swelling , Derm : No rash Psych : Normal affect. Ext : No swelling ,calf pain PE. Pt. is alert awake in no distress. V.S As noted in the chart Head ,ear nose,throat and eyes : Normal. Neck : Supple with normal carotids. Lungs: BASILAR RHONCHI Heart : S1 & S2 normal with S4. No murmur. Abd : Soft non tender with normal bowel sounds.NO HEPATOSPLENOMEGALY Neuro : Moves all ext. with no localized deficit. Ext : 2+ EDEMA LE with intact pulses. Non tender calves Derm : No rashes or decubitus ulcer. LABS reviewed VANCO LEVEL TROUGH 13.1 [place] LEUKOCYTOSIS IMPROVING lftS IMPROVING.? SHOCK LIVER VS GALLSTONES +VE BLOOD CULURES STREPTOCOCCUS ANGINOSUS ETIOLOGY ? NOT CLEAR. PLAN ; CONTINUE IV ABX PT ON IV VANCOMYCIN 1GM IVPB Q 12HRLY. IV MERREM 500MG IV Q 8HRLY. F/U CT OF THE ABDOMEN AND PELVIS WOUT/ W CONTRAST R/O COLLECTION. ABSCESS VERSUS RETROPERITONEAL LYMPHADENOPATHY R/O LYMPHOMA. HIV 1 AND 2 ANTIBODY SCREEN PENDING. REPEAT BLOOD CULTURE X 2 SETS IN AM TO SEE IF BACTEREMIA CLEARED GI WORKUP IN PROGRESS Objective - Vital Signs/Intake and Output Vital Signs (last 24 hours): Temp Pulse Resp BP Pulse Ox 98.3 F 74 22 104/66 95 08/21/18 08:00 08/21/18 08:00 08/21/18 08:00 08/21/18 08:00 08/21/18 08:00 Intake and Output: 08/21/18 08/21/18 06:59 18:59 Intake Total 1338 Output Total 1050 500 Balance 288 -500 - Medications Medications: Current Medications Acetaminophen (Tylenol 325mg Tab) 650 mg PO Q6 PRN PRN Reason: Fever >100.4 F Folic Acid (Folic Acid) 1 mg PO DAILY [facility] Last Admin: 08/21/18 09:34 Dose: 1 mg Heparin Sodium (Porcine) (Heparin) 5,000 units SC Q12 [facility] Last Admin: 08/20/18 22:24 Dose: 5,000 units Norepinephrine Bitartrate 4 mg (/ Dextrose) 254 mls @ 15.24 mls/hr IV .[id number] PRN; Protocol PRN Reason: TITRATE PER MD ORDER Last Titration: 08/19/18 12:01 Dose: 0 mcg/min, 0 mls/hr Vancomycin HCl 1,000 mg/ (Sodium Chloride) 250 mls @ 166.6 mls/hr IVPB Q12H [facility]; Protocol Last Admin: 08/21/18 11:23 Dose: 166.6 mls/hr Sodium Chloride (Sodium Chloride 0.9%) 1,000 mls @ 75 mls/hr IV .[id number] [facility] Last Admin: 08/21/18 05:16 Dose: Not Given Meropenem 500 mg/ Sodium (Chloride) 100 mls @ 100 mls/hr IVPB Q8H [facility]; Protocol Last Admin: 08/21/18 05:07 Dose: 100 mls/hr Insulin Glargine (Lantus) 15 unit SC HS [facility] Last Admin: 08/20/18 22:18 Dose: Not Given Insulin Human Regular (Novolin R) 0 unit SC ACHS [facility]; Protocol Last Admin: 08/21/18 08:01 Dose: Not Given Multivitamins (Hexavitamin) 1 tab PO DAILY [facility] Last Admin: 08/21/18 09:34 Dose: 1 tab Thiamine HCl (Vitamin B1 Tab) 100 mg PO DAILY [facility] Last Admin: 08/21/18 09:34 Dose: 100 mg - Labs Labs: 08/21/18 06:10 08/21/18 06:10 PT 14.5 SECONDS (9.7-12.2) H 08/20/18 15:23 INR 1.3 08/20/18 15:23 Assessment and Plan (1) Sepsis associated hypotension Status: Acute (2) Gram positive septicemia Status: Acute (3) Hyperpyrexia Status: Acute (4) Diabetes mellitus Status: Acute (5) Weight loss Status: Acute (6) Anemia Status: Acute
[2018-08-21 12:45] LABS: CERULOPLASMIN 33 mg/dL (18-36)
[2018-08-21] MEDS ORDERED: Iodixanol 320 mg/ml 150 ml Bottle IV ONE (15:22)
--- NOTE | 2018-08-21 17:02 | CT ---
Date of service: 08/21/2018 PROCEDURE: CT Abdomen and Pelvis with and without intravenous contrast HISTORY: WEIGHT LOSS/SEPTICEMIA R/O ABSCESS/VS MASS/RETROPE COMPARISON: Abdominal ultrasound performed 08/18/18 TECHNIQUE: Axial images of the abdomen were obtained without and with IV contrast. Coronal and sagittal reformats were generated and reviewed. Contrast dose: 100 mL Visipaque 320 IV Radiation dose: Total exam DLP = 875.81 mGy-cm. This CT exam was performed using one or more of the following dose reduction techniques: Automated exposure control, adjustment of the mA and/or kV according to patient size, and/or use of iterative reconstruction technique. FINDINGS: LOWER THORAX: Moderate-sized bilateral pleural effusions and associated compressive consolidations. Trace pericardial fluid. Moderate size hiatal hernia with debris/fluid consistent with reflux. LIVER: Unremarkable. GALLBLADDER AND BILE DUCTS: Cholelithiasis. PANCREAS: Unremarkable. SPLEEN: Unremarkable. ADRENALS: Unremarkable. KIDNEYS AND URETERS: The kidneys enhance symmetrically. No hydronephrosis or obstructing calculus identified. VASCULATURE: No aortic aneurysm. Atherosclerotic calcifications present. BOWEL: Stomach is nondistended. Lack of oral contrast limits evaluation for bowel pathology. Bowel loops appear within normal limits of caliber without evidence of obstruction. APPENDIX: The presumed appendix appears within normal limits of caliber. PERITONEUM: Small pelvic free fluid. No definite free air. LYMPH NODES: No bulky adenopathy appreciated. BLADDER: Thick-walled under distended urinary bladder. REPRODUCTIVE: Bubbles of gas noted within the scrotum. Scrotal edema/fluid. BONES: Degenerative changes. OTHER FINDINGS: Soft tissue edema/anasarca. IMPRESSION: Bubbles of gas noted within the scrotum. Scrotal edema/fluid. Appearance concerning for Choco gangrene. Correlate clinically. Cholelithiasis. Thick-walled under distended urinary bladder. Recommend correlation with urinalysis. Moderate-sized bilateral pleural effusions and associated compressive consolidations. Trace pericardial fluid. Moderate size hiatal hernia with debris/fluid consistent with reflux. Soft tissue edema/anasarca. Additional incidental findings as above. Findings discussed with the patient ZOHRA Cottrell on 08/21/18 at 4:53 p.m.
[2018-08-21 18:01] VITALS: RESP 20
[2018-08-21] MEDS: (Lantus) Insulin Glargine, Recombinant SC SCH (22:34)
[2018-08-22] MEDS: Meropenem 500 MG in Sodium Chloride 0.9% 100 ML IVPB SCH ×3 (04:32→20:46)
[2018-08-22 05:15] LABS: ALBUMIN (PEP) 2.2 g/dL (3.8-4.8); ALPHA-1-GLOBULIN (PEP) 0.5 g/dL (0.2-0.3)
[2018-08-22 06:52] LABS: % CD4 (T HELPER CELL) 59 Percent (30-61); % CD8 (SUPPRESSOR T CELL) 11 Percent (12-42); ABSOLUTE CD4 CELLS 1287 Cells/mcL (490-1740); ABSOLUTE CD8 CELLS 244 Cells/mcL (180-1170); ABSOLUTE LYMPHOCYTES 2172 Cells/mcL (850-3900); HELPER/SUPPRESSOR RATIO 5.26 Ratio (0.86-5.00)
[2018-08-22] MEDS: (Novolin R) Insulin Human Regular 100 units/ml vial SC SCH ×4 (07:57→21:53)
[2018-08-22] MEDS: Sodium Chloride 0.9% 1,000 ML IV SCH ×2 (07:57→21:54)
[2018-08-22] MEDS: Multiple Vitamins Tab PO SCH (09:17)
--- NOTE | 2018-08-22 11:35 | CP.PCM.PN ---
Subjective - Date & Time of Evaluation Date of Evaluation: 08/22/18 Time of Evaluation: 11:33 - Subjective Subjective: f/u anemia and LFTs Feels weak Good appetitie Denies dyspnea or abdominal pain OB positive stool + normocytic anemia LFTs gradually improving Objective - Vital Signs/Intake and Output Vital Signs (last 24 hours): Temp Pulse Resp BP Pulse Ox 98.2 F 76 20 124/82 95 08/22/18 07:19 08/22/18 07:19 08/22/18 07:19 08/22/18 07:19 08/22/18 07:19 Intake and Output: 08/22/18 08/22/18 06:59 18:59 Intake Total 800 Output Total 1150 Balance -350 - Medications Medications: Current Medications Acetaminophen (Tylenol 325mg Tab) 650 mg PO Q6 PRN PRN Reason: Fever >100.4 F Folic Acid (Folic Acid) 1 mg PO DAILY [facility] Last Admin: 08/22/18 09:17 Dose: 1 mg Heparin Sodium (Porcine) (Heparin) 5,000 units SC Q12 [facility] Last Admin: 08/22/18 09:17 Dose: 5,000 units Norepinephrine Bitartrate 4 mg (/ Dextrose) 254 mls @ 15.24 mls/hr IV .[id number] PRN; Protocol PRN Reason: TITRATE PER MD ORDER Last Titration: 08/19/18 12:01 Dose: 0 mcg/min, 0 mls/hr Vancomycin HCl 1,000 mg/ (Sodium Chloride) 250 mls @ 166.6 mls/hr IVPB Q12H [facility]; Protocol Last Admin: 08/22/18 11:32 Dose: 166.6 mls/hr Sodium Chloride (Sodium Chloride 0.9%) 1,000 mls @ 75 mls/hr IV .[id number] [facility] Last Admin: 08/22/18 07:57 Dose: Not Given Meropenem 500 mg/ Sodium (Chloride) 100 mls @ 100 mls/hr IVPB Q8H [facility]; Protocol Last Admin: 08/22/18 04:32 Dose: 100 mls/hr Insulin Glargine (Lantus) 15 unit SC HS [facility] Last Admin: 08/21/18 22:34 Dose: 15 unit Insulin Human Regular (Novolin R) 0 unit SC ACHS [facility]; Protocol Last Admin: 08/22/18 11:31 Dose: Not Given Multivitamins (Hexavitamin) 1 tab PO DAILY [facility] Last Admin: 08/22/18 09:17 Dose: 1 tab Thiamine HCl (Vitamin B1 Tab) 100 mg PO DAILY [facility] Last Admin: 08/22/18 09:18 Dose: 100 mg - Labs Labs: 08/21/18 06:10 08/21/18 06:10 PT 14.5 SECONDS (9.7-12.2) H 08/20/18 15:23 INR 1.3 08/20/18 15:23 - Constitutional Appears: Chronically Ill - Head Exam Head Exam: NORMOCEPHALIC - Eye Exam Eye Exam: absent: Scleral icterus - Respiratory Exam Respiratory Exam: NORMAL BREATHING PATTERN - Cardiovascular Exam Cardiovascular Exam: REGULAR RHYTHM - GI/Abdominal Exam GI & Abdominal Exam: Soft. absent: Tenderness Assessment and Plan (1) Anemia Assessment & Plan: OB positive stool Hgb stable, and no overt bleeding Should have GI workup: Colonoscopy/EGD when medically stable- Discussed with patient H Pylori stool antigen negative Status: Acute (2) Gram positive septicemia Assessment & Plan: managed by ID Status: Acute (3) Transaminitis Assessment & Plan: Gradually improving as sepsis improves. with conservative treatment Status: Acute
--- NOTE | 2018-08-22 11:45 | CP.PCM.PN ---
Subjective - Date & Time of Evaluation Date of Evaluation: 08/22/18 Time of Evaluation: 11:43 - Subjective Subjective: CHIEF COMPLAINTS TODAY : Patient has no specific complaints. ROS. HEENT : N. Resp : No cough, wheezing ,pleuritic CP ,or hemoptysis Cardio : No anginal CP, PND, orthopnea, palpitation GI : No abd.pain, n/v ,diarrhea or GI bleeding . BRANCH CONTROLLER : No headache, vertigo, focal deficit. Musculoskel : No joint swelling , Derm : No rash Psych : Normal affect. Ext : No swelling ,calf pain PE. Pt. is alert awake in no distress. V.S As noted in the chart Head ,ear nose,throat and eyes : Normal. Neck : Supple with normal carotids. Lungs: Clear air entry. Heart : S1 & S2 normal with S4. No murmur. Abd : Soft non tender with normal bowel sounds. Neuro : Moves all ext. with no localized deficit. Ext : edema with intact pulses.Non tender calves Derm : No rashes or decubitus ulcer. LABS/RADIOLOGY: ASSESSMENT/PLAN : Patient sepsis and liver function test is improving CAT scan of the abdomen showed questionable gas in the scrotal wall. Urology on board will wait for the recommendation. Hemoglobin is 7.8, we will discuss with the patient for one pack cell Continue IV antibiotics and fluids. Objective - Vital Signs/Intake and Output Vital Signs (last 24 hours): Temp Pulse Resp BP Pulse Ox 98.2 F 76 20 124/82 95 08/22/18 07:19 08/22/18 07:19 08/22/18 07:19 08/22/18 07:19 08/22/18 07:19 Intake and Output: 08/21/18 08/22/18 23:59 11:59 Intake Total 800 Output Total 500 650 Balance -500 150 - Medications Medications: Current Medications Acetaminophen (Tylenol 325mg Tab) 650 mg PO Q6 PRN PRN Reason: Fever >100.4 F Folic Acid (Folic Acid) 1 mg PO DAILY [facility] Last Admin: 08/22/18 09:17 Dose: 1 mg Heparin Sodium (Porcine) (Heparin) 5,000 units SC Q12 [facility] Last Admin: 08/22/18 09:17 Dose: 5,000 units Norepinephrine Bitartrate 4 mg (/ Dextrose) 254 mls @ 15.24 mls/hr IV .[id number] PRN; Protocol PRN Reason: TITRATE PER MD ORDER Last Titration: 08/19/18 12:01 Dose: 0 mcg/min, 0 mls/hr Vancomycin HCl 1,000 mg/ (Sodium Chloride) 250 mls @ 166.6 mls/hr IVPB Q12H [facility]; Protocol Last Admin: 08/22/18 11:32 Dose: 166.6 mls/hr Sodium Chloride (Sodium Chloride 0.9%) 1,000 mls @ 75 mls/hr IV .[id number] [facility] Last Admin: 08/22/18 07:57 Dose: Not Given Meropenem 500 mg/ Sodium (Chloride) 100 mls @ 100 mls/hr IVPB Q8H [facility]; Protocol Last Admin: 08/22/18 04:32 Dose: 100 mls/hr Insulin Glargine (Lantus) 15 unit SC HS [facility] Last Admin: 08/21/18 22:34 Dose: 15 unit Insulin Human Regular (Novolin R) 0 unit SC ACHS [facility]; Protocol Last Admin: 08/22/18 11:31 Dose: Not Given Multivitamins (Hexavitamin) 1 tab PO DAILY [facility] Last Admin: 08/22/18 09:17 Dose: 1 tab Thiamine HCl (Vitamin B1 Tab) 100 mg PO DAILY [facility] Last Admin: 08/22/18 09:18 Dose: 100 mg - Labs Labs: 08/21/18 06:10 08/21/18 06:10 PT 14.5 SECONDS (9.7-12.2) H 08/20/18 15:23 INR 1.3 08/20/18 15:23 Assessment and Plan (1) Sepsis associated hypotension Status: Acute (2) Diabetes mellitus Status: Acute (3) Weight loss Status: Acute
--- NOTE | 2018-08-22 12:09 | CP.PCM.PN ---
Subjective - Date & Time of Evaluation Date of Evaluation: 08/22/18 Time of Evaluation: 12:08 - Subjective Subjective: afebrile states feeling alright DENIES ANY PAIN OR DISCOLORATION OF GENITALS CT ABD/PELVIS NOTED ? bubbles of GAS IN SCROTUM with scrotal edema. (see full report ) ROS. HEENT : N. Resp : No cough, wheezing ,pleuritic CP ,or hemoptysis Cardio : No anginal CP, PND, orthopnea, palpitation GI : No abd.pain, n/v ,diarrhea or GI bleeding . INSOLE STIFFENER : No headache, vertigo, focal deficit. Musculoskel : No joint swelling , Derm : No rash Psych : Normal affect. Ext : No swelling ,calf pain PE. Pt. is alert awake in no distress. V.S As noted in the chart Head ,ear nose,throat and eyes : Normal. Neck : Supple with normal carotids. Lungs: BASILAR RHONCHI Heart : S1 & S2 normal with S4. No murmur. Abd : Soft non tender with normal bowel sounds.NO HEPATOSPLENOMEGALY Neuro : Moves all ext. with no localized deficit. Ext : 2+ EDEMA LE with intact pulses. Non tender calves Derm : No rashes or decubitus ulcer. LABS reviewed VANCO LEVEL TROUGH 13.5 [place] LEUKOCYTOSIS IMPROVING lftS IMPROVING.? SHOCK LIVER VS GALLSTONES ALBUMIN 2.3 LOW +VE BLOOD CULURES STREPTOCOCCUS ANGINOSUS ETIOLOGY ? NOT CLEAR. ECHO 2D - N LVF, EF 55% MILD MITRAL REGURG. HIV 1 AND 2 ANTIBODY -VE cd4/cd8 ratio n PLAN ; CONTINUE IV ABX PT ON IV VANCOMYCIN 1GM IVPB Q 12HRLY. IV MERREM 500MG IV Q 8HRLY.-08/17/18 CONSULT -DR JON EWING CERETA SCAN WHOLE BODY R/O OCCULT ABSCESS ( PT HAS STREPT.ANGINOSUS BACTEREMIA- WELL KNOWN TO CAUSE VISCERAL ABSCESSES ) REPEAT BLOOD CULTURE X 2 SETS DONE-TODAYTO SEE IF BACTEREMIA CLEARED. F/U REPEAT BLOOD CULTURES. WILL DISCUSS W PMD IF TO CONSIDER FABRICE.( IN VIEW OF STREPTOCOCCUS ANGINOSUS BACTEREMIA. ) Objective - Vital Signs/Intake and Output Vital Signs (last 24 hours): Temp Pulse Resp BP Pulse Ox 98.2 F 76 20 124/82 95 08/22/18 07:19 08/22/18 07:19 08/22/18 07:19 08/22/18 07:19 08/22/18 07:19 Intake and Output: 08/22/18 08/22/18 06:59 18:59 Intake Total 800 Output Total 1150 Balance -350 - Medications Medications: Current Medications Acetaminophen (Tylenol 325mg Tab) 650 mg PO Q6 PRN PRN Reason: Fever >100.4 F Folic Acid (Folic Acid) 1 mg PO DAILY [facility] Last Admin: 08/22/18 09:17 Dose: 1 mg Heparin Sodium (Porcine) (Heparin) 5,000 units SC Q12 [facility] Last Admin: 08/22/18 09:17 Dose: 5,000 units Norepinephrine Bitartrate 4 mg (/ Dextrose) 254 mls @ 15.24 mls/hr IV .[id number] PRN; Protocol PRN Reason: TITRATE PER MD ORDER Last Titration: 08/19/18 12:01 Dose: 0 mcg/min, 0 mls/hr Vancomycin HCl 1,000 mg/ (Sodium Chloride) 250 mls @ 166.6 mls/hr IVPB Q12H [facility]; Protocol Last Admin: 08/22/18 11:32 Dose: 166.6 mls/hr Sodium Chloride (Sodium Chloride 0.9%) 1,000 mls @ 75 mls/hr IV .[id number] [facility] Last Admin: 08/22/18 07:57 Dose: Not Given Meropenem 500 mg/ Sodium (Chloride) 100 mls @ 100 mls/hr IVPB Q8H [facility]; Protocol Last Admin: 08/22/18 04:32 Dose: 100 mls/hr Insulin Glargine (Lantus) 15 unit SC HS [facility] Last Admin: 08/21/18 22:34 Dose: 15 unit Insulin Human Regular (Novolin R) 0 unit SC ACHS [facility]; Protocol Last Admin: 08/22/18 11:31 Dose: Not Given Multivitamins (Hexavitamin) 1 tab PO DAILY [facility] Last Admin: 08/22/18 09:17 Dose: 1 tab Thiamine HCl (Vitamin B1 Tab) 100 mg PO DAILY [facility] Last Admin: 08/22/18 09:18 Dose: 100 mg - Labs Labs: 08/21/18 06:10 08/21/18 06:10 PT 14.5 SECONDS (9.7-12.2) H 08/20/18 15:23 INR 1.3 08/20/18 15:23 Assessment and Plan (1) Sepsis associated hypotension Status: Acute (2) Gram positive septicemia Status: Acute (3) Hyperpyrexia Status: Acute (4) Diabetes mellitus Status: Acute (5) Weight loss Status: Acute (6) Anemia Status: Acute
--- NOTE | 2018-08-22 17:10 | US ---
Date of service: 08/22/2018 HISTORY: abn ct TECHNIQUE: Realtime sonography through the scrotum with color and doppler flow. COMPARISON: No prior ultrasound available for comparison. CT of the abdomen and pelvis performed 08/21/18 FINDINGS: RIGHT TESTICLE: Measures 4.4 x 2.1 x 3.0 cm. Homogeneous echotexture. Blood flow is demonstrated. RIGHT EPIDIDYMIS: Measures approximately 0.8 x 1.0 x 0.9 cm. LEFT TESTICLE: Measures 3.6 x 1.4 x 1.9 cm. Homogeneous echotexture. Blood flow is demonstrated. LEFT EPIDIDYMIS: Measures approximately 2.5 x 1.3 x 2.2 cm. 1.9 x 1.1 x 1.5 cm cyst. HYDROCELE: None. VARICOCELE: None. OTHER FINDINGS: Scrotal edema. IMPRESSION: 1.9 x 1.1 x 1.5 cm left epididymal cyst. Left epididymis appears prominent as compared to the right. Correlate clinically Diffuse bilateral scrotal edema.
[2018-08-22] MEDS: (Lantus) Insulin Glargine, Recombinant SC SCH (21:53)
[2018-08-23] MEDS: Meropenem 500 MG in Sodium Chloride 0.9% 100 ML IVPB SCH ×3 (04:10→20:30)
[2018-08-23 07:13] LABS: BASO % 0.7 % (0.0-2.0); EOS # 0.3 K/uL (0.0-0.7); HEMOGLOBIN 8.2 g/dL (12.0-18.0); LYMPH # 1.6 K/uL (1.0-4.3); LYMPH % 24.1 % (20.0-40.0); MEAN CELL VOLUME 86.9 fL (80.0-94.0); MEAN CORPUSCULAR HGB CONC 32.2 g/dL (33.0-37.0); MEAN PLATELET VOLUME 8.9 fL (7.2-11.7); MONO # 0.8 K/uL (0.0-0.8); MONO % 12.2 % (0.0-10.0); NEUT # 3.9 K/uL (1.8-7.0); RBC 2.92 Mil/uL (4.40-5.90); WHITE BLOOD COUNT 6.7 K/uL (4.8-10.8)
[2018-08-23] MEDS: (Novolin R) Insulin Human Regular 100 units/ml vial SC SCH ×4 (07:36→21:37)
[2018-08-23 08:10] LABS: ALB/GLOB RATIO 0.9 (1.0-2.1); ALBUMIN 2.5 g/dL (3.5-5.0); ALT/SGPT 74 U/L (21-72); AST/SGOT 22 U/L (17-59); BLOOD UREA NITROGEN 7 mg/dL (9-20); CALCIUM 8.1 mg/dl (8.6-10.4); GFR NON-AFRICAN AMERICAN > 60
[2018-08-23] MEDS: Multiple Vitamins Tab PO SCH (09:33)
--- NOTE | 2018-08-23 10:07 | CP.PCM.PN ---
Subjective - Date & Time of Evaluation Date of Evaluation: 08/23/18 Time of Evaluation: 10:04 - Subjective Subjective: F/U anemia. Reports feeling better Denies abd pain, RB, melena, fever, chills, CORONADO, CP, SOB, SZ, hemoptysis Objective - Vital Signs/Intake and Output Vital Signs (last 24 hours): Temp Pulse Resp BP Pulse Ox 98.2 F 56 L 20 121/75 95 08/23/18 07:56 08/23/18 07:56 08/23/18 07:56 08/23/18 07:56 08/23/18 07:56 Intake and Output: 08/23/18 08/23/18 06:59 18:59 Intake Total 925 Balance 925 - Medications Medications: Current Medications Acetaminophen (Tylenol 325mg Tab) 650 mg PO Q6 PRN PRN Reason: Fever >100.4 F Folic Acid (Folic Acid) 1 mg PO DAILY [facility] Last Admin: 08/23/18 09:33 Dose: 1 mg Heparin Sodium (Porcine) (Heparin) 5,000 units SC Q12 [facility] Last Admin: 08/23/18 09:33 Dose: 5,000 units Norepinephrine Bitartrate 4 mg (/ Dextrose) 254 mls @ 15.24 mls/hr IV .[id number] PRN; Protocol PRN Reason: TITRATE PER MD ORDER Last Titration: 08/19/18 12:01 Dose: 0 mcg/min, 0 mls/hr Vancomycin HCl 1,000 mg/ (Sodium Chloride) 250 mls @ 166.6 mls/hr IVPB Q12H [facility]; Protocol Last Admin: 08/22/18 22:03 Dose: 166.6 mls/hr Sodium Chloride (Sodium Chloride 0.9%) 1,000 mls @ 75 mls/hr IV .[id number] [facility] Last Admin: 08/22/18 21:54 Dose: 75 mls/hr Meropenem 500 mg/ Sodium (Chloride) 100 mls @ 100 mls/hr IVPB Q8H [facility]; Protocol Last Admin: 08/23/18 04:10 Dose: 100 mls/hr Insulin Glargine (Lantus) 15 unit SC HS [facility] Last Admin: 08/22/18 21:53 Dose: 15 unit Insulin Human Regular (Novolin R) 0 unit SC ACHS [facility]; Protocol Last Admin: 08/23/18 07:36 Dose: Not Given Multivitamins (Hexavitamin) 1 tab PO DAILY [facility] Last Admin: 08/23/18 09:33 Dose: 1 tab Thiamine HCl (Vitamin B1 Tab) 100 mg PO DAILY [facility] Last Admin: 08/23/18 09:33 Dose: 100 mg - Labs Labs: 08/23/18 06:59 08/23/18 06:59 PT 14.5 SECONDS (9.7-12.2) H 08/20/18 15:23 INR 1.3 08/20/18 15:23 - Constitutional Appears: Well - Respiratory Exam Respiratory Exam: Clear to Ausculation Bilateral - Cardiovascular Exam Cardiovascular Exam: RRR - GI/Abdominal Exam GI & Abdominal Exam: Soft, Normal Bowel Sounds. absent: Guarding, Tenderness, Mass - Neurological Exam Neurological Exam: Alert, Awake, Oriented x3 - Psychiatric Exam Psychiatric exam: Normal Mood Assessment and Plan (1) Cirrhosis Assessment & Plan: On imaging studies Status: Acute (2) Anemia Assessment & Plan: Hb stable. GI w/u when sepsis clarified. Status: Acute (3) Diabetes mellitus Status: Acute (4) Gram positive septicemia Status: Acute (5) Sepsis associated hypotension Status: Acute (6) Transaminitis Assessment & Plan: Shock liver. Improving. F/U LFTs. Status: Acute (7) Weight loss Status: Acute
[2018-08-23] MEDS: Sodium Chloride 0.9% 1,000 ML IV SCH (10:28)
--- NOTE | 2018-08-23 14:11 | CP.PCM.PN ---
Subjective - Date & Time of Evaluation Date of Evaluation: 08/23/18 Time of Evaluation: 14:11 - Subjective Subjective: CHIEF COMPLAINTS TODAY : Patient has no specific complaints. ROS. HEENT : N. Resp : No cough, wheezing ,pleuritic CP ,or hemoptysis Cardio : No anginal CP, PND, orthopnea, palpitation GI : No abd.pain, n/v ,diarrhea or GI bleeding . HYPERTRICHOLOGIST : No headache, vertigo, focal deficit. Musculoskel : No joint swelling , Derm : No rash Psych : Normal affect. Ext : No swelling ,calf pain PE. Pt. is alert awake in no distress. V.S As noted in the chart Head ,ear nose,throat and eyes : Normal. Neck : Supple with normal carotids. Lungs: Clear air entry. Heart : S1 & S2 normal with S4. No murmur. Abd : Soft non tender with normal bowel sounds. Neuro : Moves all ext. with no localized deficit. Ext : edema with intact pulses.Non tender calves Derm : No rashes or decubitus ulcer. LABS/RADIOLOGY: ASSESSMENT/PLAN : Patient sepsis and liver function test is improving CAT scan of the abdomen showed questionable gas in the scrotal wall. Urology on board will wait for the recommendation. Objective - Vital Signs/Intake and Output Vital Signs (last 24 hours): Temp Pulse Resp BP Pulse Ox 98.2 F 56 L 20 121/75 95 08/23/18 07:56 08/23/18 07:56 08/23/18 07:56 08/23/18 07:56 08/23/18 07:56 Intake and Output: 08/23/18 08/23/18 11:59 23:59 Intake Total 925 Balance 925 - Medications Medications: Current Medications Acetaminophen (Tylenol 325mg Tab) 650 mg PO Q6 PRN PRN Reason: Fever >100.4 F Folic Acid (Folic Acid) 1 mg PO DAILY [facility] Last Admin: 08/23/18 09:33 Dose: 1 mg Norepinephrine Bitartrate 4 mg (/ Dextrose) 254 mls @ 15.24 mls/hr IV .[id number] PRN; Protocol PRN Reason: TITRATE PER MD ORDER Last Titration: 08/19/18 12:01 Dose: 0 mcg/min, 0 mls/hr Sodium Chloride (Sodium Chloride 0.9%) 1,000 mls @ 75 mls/hr IV .[id number] [facility] Last Admin: 08/23/18 10:28 Dose: 75 mls/hr Meropenem 500 mg/ Sodium (Chloride) 100 mls @ 100 mls/hr IVPB Q8H [facility]; Protocol Last Admin: 08/23/18 12:26 Dose: 100 mls/hr Insulin Glargine (Lantus) 15 unit SC HS [facility] Last Admin: 08/22/18 21:53 Dose: 15 unit Insulin Human Regular (Novolin R) 0 unit SC ACHS [facility]; Protocol Last Admin: 08/23/18 12:26 Dose: 2 unit Multivitamins (Hexavitamin) 1 tab PO DAILY [facility] Last Admin: 08/23/18 09:33 Dose: 1 tab Thiamine HCl (Vitamin B1 Tab) 100 mg PO DAILY [facility] Last Admin: 08/23/18 09:33 Dose: 100 mg - Labs Labs: 08/23/18 06:59 08/23/18 06:59 PT 14.5 SECONDS (9.7-12.2) H 08/20/18 15:23 INR 1.3 08/20/18 15:23 Assessment and Plan (1) Sepsis associated hypotension Status: Acute (2) Diabetes mellitus Status: Acute (3) Weight loss Status: Acute
[2018-08-23 14:57] LABS: ANCA SCREEN NEGATIVE (NEGATIVE)
[2018-08-23] MEDS ORDERED: Potassium Chloride 20 mEq ER Tab PO SCH (16:00)
[2018-08-23] MEDS: (Lantus) Insulin Glargine, Recombinant SC SCH (21:41)
--- NOTE | 2018-08-23 23:46 | CP.PCM.PN ---
Subjective - Date & Time of Evaluation Date of Evaluation: 08/23/18 Time of Evaluation: 23:46 - Subjective Subjective: afebrile NO COMPLAINTS PT FOR CERETAC SCAN TODAY. ROS. HEENT : N. Resp : No cough, wheezing ,pleuritic CP ,or hemoptysis Cardio : No anginal CP, PND, orthopnea, palpitation GI : No abd.pain, n/v ,diarrhea or GI bleeding . AUDIO PRODUCTION MANAGER : No headache, vertigo, focal deficit. Musculoskel : No joint swelling , Derm : No rash Psych : Normal affect. Ext : No swelling ,calf pain PE. Pt. is alert awake in no distress. V.S As noted in the chart Head ,ear nose,throat and eyes : Normal. Neck : Supple with normal carotids. Lungs: DECREASED BS BASES. Heart : S1 & S2 normal with S4. No murmur. Abd : Soft non tender with normal bowel sounds.NO HEPATOSPLENOMEGALY Neuro : Moves all ext. with no localized deficit. Ext : 2+ EDEMA LE with intact pulses. Non tender calves Derm : No rashes or decubitus ulcer. LABS reviewed BLOOD CULTURE 08/22/18 -VE X24HRS VANCO LEVEL TROUGH 13.5 [place] LEUKOCYTOSIS IMPROVING lftS IMPROVING.? SHOCK LIVER VS GALLSTONES ALBUMIN 2.3 LOW +VE BLOOD CULURES STREPTOCOCCUS ANGINOSUS ETIOLOGY ? NOT CLEAR. ECHO 2D - N LVF, EF 55% MILD MITRAL REGURG. HIV 1 AND 2 ANTIBODY -VE cd4/cd8 ratio n ROMARIO +VE 1:640 NUCLEOLAR -SCLERODERMA/SLE TESTICULAR US - LT EPIDIDMYSIS PROMINANT/ +VE CYST LT . EPIDIDMYSIS PLAN ; CONTINUE IV ABX PT ON IV VANCOMYCIN 1GM IVPB Q 12HRLY. IV MERREM 500MG IV Q 8HRLY.-08/17/18 CONSULT -DR JON EWING -P RECOMMENDATIONS. CERETAC SCAN WHOLE BODY R/O OCCULT ABSCESS ( PT HAS STREPT.ANGINOSUS BACTEREMIA- WELL KNOWN TO CAUSE VISCERAL ABSCESSES ) IN PROGRESS REPEAT BLOOD CULTURE X 2 SETS DONE- P SPRAYER MACHINE TO SEE PT. PT. WANTS TO KNOW DIET TO FOLLOW. - RECOMMENDED 2 GM NA HEART HEALTHY DIET. Objective - Vital Signs/Intake and Output Vital Signs (last 24 hours): Temp Pulse Resp BP Pulse Ox 98.5 F 71 20 135/82 96 08/23/18 23:31 08/23/18 23:31 08/23/18 23:31 08/23/18 23:31 08/23/18 23:31 Intake and Output: 08/23/18 08/24/18 18:59 06:59 Intake Total 600 Balance 600 - Medications Medications: Current Medications Acetaminophen (Tylenol 325mg Tab) 650 mg PO Q6 PRN PRN Reason: Fever >100.4 F Folic Acid (Folic Acid) 1 mg PO DAILY [facility] Last Admin: 08/23/18 09:33 Dose: 1 mg Norepinephrine Bitartrate 4 mg (/ Dextrose) 254 mls @ 15.24 mls/hr IV .[id number] PRN; Protocol PRN Reason: TITRATE PER MD ORDER Last Titration: 08/19/18 12:01 Dose: 0 mcg/min, 0 mls/hr Meropenem 500 mg/ Sodium (Chloride) 100 mls @ 100 mls/hr IVPB Q8H [facility]; Protocol Last Admin: 08/23/18 20:30 Dose: 100 mls/hr Insulin Glargine (Lantus) 15 unit SC HS [facility] Last Admin: 08/23/18 21:41 Dose: 15 unit Insulin Human Regular (Novolin R) 0 unit SC ACHS [facility]; Protocol Last Admin: 08/23/18 21:37 Dose: Not Given Multivitamins (Hexavitamin) 1 tab PO DAILY [facility] Last Admin: 08/23/18 09:33 Dose: 1 tab Thiamine HCl (Vitamin B1 Tab) 100 mg PO DAILY [facility] Last Admin: 08/23/18 09:33 Dose: 100 mg - Labs Labs: 08/23/18 06:59 08/23/18 06:59 PT 14.5 SECONDS (9.7-12.2) H 08/20/18 15:23 INR 1.3 08/20/18 15:23 Assessment and Plan (1) Sepsis associated hypotension Status: Acute (2) Gram positive septicemia Status: Acute (3) Hyperpyrexia Status: Acute (4) Diabetes mellitus Status: Acute (5) Weight loss Status: Acute (6) Anemia Status: Acute
[2018-08-24] MEDS: Meropenem 500 MG in Sodium Chloride 0.9% 100 ML IVPB SCH ×3 (04:00→20:30)
[2018-08-24] MEDS: (Novolin R) Insulin Human Regular 100 units/ml vial SC SCH ×4 (07:36→21:51)
[2018-08-24 07:45] LABS: BASO # 0.1 K/uL (0.0-0.2); BASO % 0.8 % (0.0-2.0); EOS # 0.3 K/uL (0.0-0.7); EOS % 4.1 % (0.0-4.0); HEMOGLOBIN 8.8 g/dL (12.0-18.0); LYMPH # 1.9 K/uL (1.0-4.3); LYMPH % 22.7 % (20.0-40.0); MEAN CORPUSCULAR HEMOGLOBIN 28.3 pg (27.0-31.0); MEAN CORPUSCULAR HGB CONC 32.2 g/dL (33.0-37.0); MEAN PLATELET VOLUME 8.5 fL (7.2-11.7); MONO # 1.2 K/uL (0.0-0.8); MONO % 14.1 % (0.0-10.0); NEUT # 4.8 K/uL (1.8-7.0); NEUT % 58.3 % (50.0-75.0); RBC 3.11 Mil/uL (4.40-5.90); RED CELL DISTRIBUTION WIDTH 14.4 % (11.5-14.5); WHITE BLOOD COUNT 8.3 K/uL (4.8-10.8)
[2018-08-24] MEDS: Multiple Vitamins Tab PO SCH (09:09)
[2018-08-24 09:21] LABS: ALB/GLOB RATIO 0.9 (1.0-2.1); ALBUMIN 2.8 g/dL (3.5-5.0); ALT/SGPT 65 U/L (21-72); AST/SGOT 23 U/L (17-59); BLOOD UREA NITROGEN 6 mg/dL (9-20); CALCIUM 8.3 mg/dl (8.6-10.4); GFR NON-AFRICAN AMERICAN > 60
--- NOTE | 2018-08-24 11:04 | CP.PCM.PN ---
Subjective - Date & Time of Evaluation Date of Evaluation: 08/24/18 Time of Evaluation: 11:03 - Subjective Subjective: CHIEF COMPLAINTS TODAY : Patient has no specific complaints. ROS. HEENT : N. Resp : No cough, wheezing ,pleuritic CP ,or hemoptysis Cardio : No anginal CP, PND, orthopnea, palpitation GI : No abd.pain, n/v ,diarrhea or GI bleeding . HEALTH TEACHER : No headache, vertigo, focal deficit. Musculoskel : No joint swelling , Derm : No rash Psych : Normal affect. Ext : No swelling ,calf pain PE. Pt. is alert awake in no distress. V.S As noted in the chart Head ,ear nose,throat and eyes : Normal. Neck : Supple with normal carotids. Lungs: Clear air entry. Heart : S1 & S2 normal with S4. No murmur. Abd : Soft non tender with normal bowel sounds. Neuro : Moves all ext. with no localized deficit. Ext : edema with intact pulses.Non tender calves Derm : No rashes or decubitus ulcer. LABS/RADIOLOGY: ASSESSMENT/PLAN : awaiting results of WBC scan Patient is stable will probably discharge patient in am Objective - Vital Signs/Intake and Output Vital Signs (last 24 hours): Temp Pulse Resp BP Pulse Ox 98.2 F 66 20 147/82 97 08/24/18 07:46 08/24/18 07:46 08/24/18 07:46 08/24/18 07:46 08/24/18 07:46 Intake and Output: 08/23/18 08/24/18 23:59 11:59 Intake Total 600 Balance 600 - Medications Medications: Current Medications Acetaminophen (Tylenol 325mg Tab) 650 mg PO Q6 PRN PRN Reason: Fever >100.4 F Folic Acid (Folic Acid) 1 mg PO DAILY [facility] Last Admin: 08/24/18 09:09 Dose: 1 mg Norepinephrine Bitartrate 4 mg (/ Dextrose) 254 mls @ 15.24 mls/hr IV .[id number] PRN; Protocol PRN Reason: TITRATE PER MD ORDER Last Titration: 08/19/18 12:01 Dose: 0 mcg/min, 0 mls/hr Meropenem 500 mg/ Sodium (Chloride) 100 mls @ 100 mls/hr IVPB Q8H [facility]; Protocol Last Admin: 08/24/18 04:00 Dose: 100 mls/hr Insulin Glargine (Lantus) 15 unit SC HS [facility] Last Admin: 08/23/18 21:41 Dose: 15 unit Insulin Human Regular (Novolin R) 0 unit SC ACHS [facility]; Protocol Last Admin: 08/24/18 07:36 Dose: 2 unit Multivitamins (Hexavitamin) 1 tab PO DAILY [facility] Last Admin: 08/24/18 09:09 Dose: 1 tab Thiamine HCl (Vitamin B1 Tab) 100 mg PO DAILY [facility] Last Admin: 08/24/18 09:09 Dose: 100 mg - Labs Labs: 08/24/18 07:32 08/24/18 07:32 PT 14.5 SECONDS (9.7-12.2) H 08/20/18 15:23 INR 1.3 08/20/18 15:23 Assessment and Plan (1) Sepsis associated hypotension Status: Acute (2) Diabetes mellitus Status: Acute (3) Weight loss Status: Acute
--- NOTE | 2018-08-24 13:07 | NM ---
Date of service: 08/24/2018 PROCEDURE: Ceretec labeled white blood cell study HISTORY: strept. bacteremia r/o occult abscess COMPARISON: August 21, 2018. Abdominal pelvic CT. August 23, 2018. Testicular ultrasound. TECHNIQUE: 22.0 mCi technetium 99 M Ceretec labeled white blood cell studies administered intravenously. FINDINGS: Head and neck: No Ceretec avid structures identified. Thorax: No Ceretec avid structures identified. Abdomen retroperitoneum and pelvis: Expected uptake in the liver and spleen. Appendicular structures: Unremarkable study. IMPRESSION: Negative Ceretec labeled white blood cell study for acute inflammatory process.
--- NOTE | 2018-08-24 20:13 | CP.PCM.PN ---
Subjective - Date & Time of Evaluation Date of Evaluation: 08/24/18 Time of Evaluation: 20:12 - Subjective Subjective: AFEBRILE NO COMPLAINTS. SAW HORTICULTURAL FARMWORKER TODAY CERETAC SCAN WHOLE BODY -VE FOR INFLAMATORY PROCESS OR ABSCESS ROS. HEENT : N. Resp : No cough, wheezing ,pleuritic CP ,or hemoptysis Cardio : No anginal CP, PND, orthopnea, palpitation GI : No abd.pain, n/v ,diarrhea or GI bleeding . MACHINIST/MACHINE BUILDER : No headache, vertigo, focal deficit. Musculoskel : No joint swelling , Derm : No rash Psych : Normal affect. Ext : No swelling ,calf pain PE. Pt. is alert awake in no distress. V.S As noted in the chart Head ,ear nose,throat and eyes : Normal. Neck : Supple with normal carotids. Lungs: [employer] Heart : S1 & S2 normal with S4. No murmur. Abd : Soft non tender with normal bowel sounds.NO HEPATOSPLENOMEGALY Neuro : Moves all ext. with no localized deficit. Ext : 1+ EDEMA LE with intact pulses. Non tender calves Derm : No rashes or decubitus ulcer. LABS reviewed BLOOD CULTURE 08/22/18 -VE X 48 HRS LEUKOCYTOSIS IMPROVING lftS IMPROVING.? SHOCK LIVER VS GALLSTONES +VE BLOOD CULURES STREPTOCOCCUS ANGINOSUS ETIOLOGY ? NOT CLEAR. ECHO 2D - N LVF, EF 55% MILD MITRAL REGURG. HIV 1 AND 2 ANTIBODY -VE cd4/cd8 ratio n ROMARIO +VE 1:640 NUCLEOLAR -SCLERODERMA/SLE TESTICULAR US - LT EPIDIDMYSIS PROMINANT/ +VE CYST LT . EPIDIDMYSIS PLAN ; CONTINUE IV ABX PT ON IV VANCOMYCIN 1GM IVPB Q 12HRLY.-DAY 9 IV MERREM 500MG IV Q 8HRLY.-08/17/18 DAY 9. PT TO GET THE MORNING DOSE OF IV VANCOMYCIN AND MERREM. THEN SWITCH HIM TO PO KEFLEX 500MG PO BID X 5 DAYS PO FLORSTAR 250MF CAPS 1 CAPS AT BEDTIME. X 5DAYS PT TO F/U IN OFFICE IN 1 WEEK. Objective - Vital Signs/Intake and Output Vital Signs (last 24 hours): Temp Pulse Resp BP Pulse Ox 97.9 F 67 20 158/81 H 98 08/24/18 16:00 08/24/18 16:00 08/24/18 16:00 08/24/18 16:00 08/24/18 16:00 - Medications Medications: Current Medications Acetaminophen (Tylenol 325mg Tab) 650 mg PO Q6 PRN PRN Reason: Fever >100.4 F Folic Acid (Folic Acid) 1 mg PO DAILY [facility] Last Admin: 08/24/18 09:09 Dose: 1 mg Norepinephrine Bitartrate 4 mg (/ Dextrose) 254 mls @ 15.24 mls/hr IV .[id number] PRN; Protocol PRN Reason: TITRATE PER MD ORDER Last Titration: 08/19/18 12:01 Dose: 0 mcg/min, 0 mls/hr Meropenem 500 mg/ Sodium (Chloride) 100 mls @ 100 mls/hr IVPB Q8H [facility]; Protocol Last Admin: 08/24/18 11:46 Dose: 100 mls/hr Insulin Glargine (Lantus) 15 unit SC HS [facility] Last Admin: 08/23/18 21:41 Dose: 15 unit Insulin Human Regular (Novolin R) 0 unit SC ACHS [facility]; Protocol Last Admin: 08/24/18 16:30 Dose: 3 unit Multivitamins (Hexavitamin) 1 tab PO DAILY [facility] Last Admin: 08/24/18 09:09 Dose: 1 tab Thiamine HCl (Vitamin B1 Tab) 100 mg PO DAILY [facility] Last Admin: 08/24/18 09:09 Dose: 100 mg - Labs Labs: 08/24/18 07:32 08/24/18 07:32 PT 14.5 SECONDS (9.7-12.2) H 08/20/18 15:23 INR 1.3 08/20/18 15:23 Assessment and Plan (1) Sepsis associated hypotension Status: Acute (2) Gram positive septicemia Status: Acute (3) Hyperpyrexia Status: Acute (4) Diabetes mellitus Status: Acute (5) Weight loss Status: Acute (6) Anemia Status: Acute
[2018-08-24] MEDS: Vancomycin 1 gm/NS 200 ml 1 GM/200 ML BAG IVPB SCH (20:30)
[2018-08-24] MEDS: (Lantus) Insulin Glargine, Recombinant SC SCH (21:47)
[2018-08-25] MEDS: Meropenem 500 MG in Sodium Chloride 0.9% 100 ML IVPB SCH ×2 (05:00→12:07)
[2018-08-25 07:16] LABS: BASO # 0.1 K/uL (0.0-0.2); BASO % 0.9 % (0.0-2.0); EOS # 0.3 K/uL (0.0-0.7); EOS % 3.4 % (0.0-4.0); HEMOGLOBIN 10.2 g/dL (12.0-18.0); LYMPH # 1.6 K/uL (1.0-4.3); LYMPH % 18.3 % (20.0-40.0); MEAN CELL VOLUME 87.7 fL (80.0-94.0); MEAN CORPUSCULAR HEMOGLOBIN 28.6 pg (27.0-31.0); MEAN CORPUSCULAR HGB CONC 32.6 g/dL (33.0-37.0); MEAN PLATELET VOLUME 8.3 fL (7.2-11.7); MONO # 0.8 K/uL (0.0-0.8); MONO % 9.7 % (0.0-10.0); NEUT # 5.8 K/uL (1.8-7.0); NEUT % 67.7 % (50.0-75.0); NRBC % 0.1 % (0.0-2.0); RBC 3.55 Mil/uL (4.40-5.90); RED CELL DISTRIBUTION WIDTH 14.1 % (11.5-14.5); WHITE BLOOD COUNT 8.6 K/uL (4.8-10.8)
[2018-08-25] MEDS: Vancomycin 1 gm/NS 200 ml 1 GM/200 ML BAG IVPB SCH (07:30)
[2018-08-25 07:44] LABS: ALB/GLOB RATIO 0.9 (1.0-2.1); ALT/SGPT 59 U/L (21-72); AST/SGOT 21 U/L (17-59); BLOOD UREA NITROGEN 5 mg/dL (9-20); CALCIUM 8.2 mg/dl (8.6-10.4); GFR NON-AFRICAN AMERICAN > 60
[2018-08-25] MEDS: (Novolin R) Insulin Human Regular 100 units/ml vial SC SCH ×2 (08:04→12:08)
[2018-08-25] MEDS: Multiple Vitamins Tab PO SCH (09:09)
[2018-08-25 09:21] VITALS: BP 146/75; PULSE 90; TEMP 98.4; O2SAT 98
--- NOTE | 2018-08-25 11:21 | CP.PCM.PN ---
Subjective - Date & Time of Evaluation Date of Evaluation: 08/25/18 Time of Evaluation: 11:21 - Subjective Subjective: AFEBRILE NO COMPLAINTS. ANXIOUS TO GO HOME ROS. HEENT : N. Resp : No cough, wheezing ,pleuritic CP ,or hemoptysis Cardio : No anginal CP, PND, orthopnea, palpitation GI : No abd.pain, n/v ,diarrhea or GI bleeding . 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 Musculoskel : No joint swelling , Derm : No rash Psych : Normal affect. Ext : No swelling ,calf pain PE. Pt. is alert awake in no distress. V.S As noted in the chart Head ,ear nose,throat and eyes : Normal. Neck : Supple with normal carotids. Lungs: FAIR AIR ENTRY Heart : S1 & S2 normal with S4. No murmur. Abd : Soft non tender with normal bowel sounds.NO HEPATOSPLENOMEGALY Neuro : Moves all ext. with no localized deficit. Ext : 1+ EDEMA LE with intact pulses. Non tender calves Derm : No rashes or decubitus ulcer. LABS reviewed BLOOD CULTURE 08/22/18 -VE X 3 DAYS WBC 8.6 H/H 10.2/31.2 PLT 320 LFTS -IMPROVING +VE BLOOD CULURES STREPTOCOCCUS ANGUINOUS ETIOLOGY ? NOT CLEAR. ECHO 2D - N LVF, EF 55% MILD MITRAL REGURG. HIV 1 AND 2 ANTIBODY -VE cd4/cd8 ratio n ROMARIO +VE 1:640 NUCLEOLAR -SCLERODERMA/SLE TESTICULAR US - LT EPIDIDMYSIS PROMINANT/ +VE CYST LT . EPIDIDMYSIS IMPRESSION; * STREPTOCOCCUS ANGINOSUS BACTEREMIA. * ANAEMIA OF CHRONIC DISEASE/ * WEIGHT LOSS *S/P SEPTIC SHOCK. *CHOLILITHIASIS. *S/P INFLUENZA A+VE PLAN ; CONTINUE IV ABX PT ON IV VANCOMYCIN 1GM IVPB Q 12HRLY.-DAY 10 IV MERREM 500MG IV Q 8HRLY.-08/17/18 DAY 10.. D/C IV VANCOMYCIN AND MERREM AFTER AM DOSE THEN SWITCH HIM TO PO KEFLEX 500MG PO BID X 5 DAYS PO FLORSTAR 250MF CAPS 1 CAPS AT BEDTIME. X 5DAYS PT TO F/U IN OFFICE IN 1 WEEK. Objective - Vital Signs/Intake and Output Vital Signs (last 24 hours): Temp Pulse Resp BP Pulse Ox 98.4 F 90 20 146/75 98 08/25/18 08:00 08/25/18 08:00 08/25/18 08:00 08/25/18 08:00 08/25/18 08:00 Intake and Output: 08/25/18 08/25/18 06:59 18:59 Intake Total 990 Balance 990 - Medications Medications: Current Medications Acetaminophen (Tylenol 325mg Tab) 650 mg PO Q6 PRN PRN Reason: Fever >100.4 F Folic Acid (Folic Acid) 1 mg PO DAILY [facility] Last Admin: 08/25/18 09:09 Dose: 1 mg Norepinephrine Bitartrate 4 mg (/ Dextrose) 254 mls @ 15.24 mls/hr IV .[id number] PRN; Protocol PRN Reason: TITRATE PER MD ORDER Last Titration: 08/19/18 12:01 Dose: 0 mcg/min, 0 mls/hr Meropenem 500 mg/ Sodium (Chloride) 100 mls @ 100 mls/hr IVPB Q8H EDER; Protocol Last Admin: 08/25/18 05:00 Dose: 100 mls/hr Vancomycin/Sodium Chloride (Vancomycin 1 Gm/Ns 200 Ml) 1 gm in 200 mls @ 133.333 mls/hr IVPB Q12H EDER; Protocol Last Admin: 08/25/18 07:30 Dose: 133.333 mls/hr Insulin Glargine (Lantus) 15 unit SC HS [facility] Last Admin: 08/24/18 21:47 Dose: 15 unit Insulin Human Regular (Novolin R) 0 unit SC ACHS EDER; Protocol Last Admin: 08/25/18 08:04 Dose: 3 unit Multivitamins (Hexavitamin) 1 tab PO DAILY [facility] Last Admin: 08/25/18 09:09 Dose: 1 tab Thiamine HCl (Vitamin B1 Tab) 100 mg PO DAILY [facility] Last Admin: 08/25/18 09:09 Dose: 100 mg - Labs Labs: 08/25/18 07:09 08/25/18 07:09 PT 14.5 SECONDS (9.7-12.2) H 08/20/18 15:23 INR 1.3 08/20/18 15:23 Assessment and Plan (1) Sepsis associated hypotension Status: Acute (2) Gram positive septicemia Status: Acute (3) Hyperpyrexia Status: Acute (4) Diabetes mellitus Status: Acute (5) Weight loss Status: Acute (6) Anemia Status: Acute
--- NOTE | 2018-08-25 12:48 | CP.PCM.DIS ---
Provider - Provider Date of Admission: 08/17/18 17:55 Attending physician: Mansoor Ramey MD Consults: 08/17/18 19:26 Infectious Disease Consult Routine Comment: Consulting Provider: Aleena Antonio Consulting Physician: Aleena Antonio Reason for Consult: septic shock 08/19/18 13:31 Physician Consult Routine Comment: Consulting Provider: Nimesh Chamorro Consulting Physician: Nimesh Chamorro Reason for Consult: iron deficiency anemia/cirrosis 08/21/18 22:14 Urology Consult Routine Comment: Consulting Provider: Louie Cantu Consulting Physician: Louie Cantu Reason for Consult: scrotal abscess Time Spent in preparation of Discharge (in minutes): 35 Diagnosis - Discharge Diagnosis (1) Sepsis associated hypotension Status: Acute (2) Diabetes mellitus Status: Acute (3) Weight loss Status: Acute Hospital Course - Lab Results Lab Results: Micro Results 08/22/18 04:00 Blood-Thru Central Line Blood Culture - Preliminary NO GROWTH AFTER 3 DAYS 08/22/18 08:07 Blood-Thru Central Line Blood Culture - Preliminary NO GROWTH AFTER 3 DAYS 08/21/18 19:49 Naris MRSA Culture - Final MRSA NOT DETECTED 08/17/18 16:00 Blood-Venous Blood Culture - Final Streptococcus anginosus group 08/17/18 16:00 Blood-Venous Gram Stain - Final 08/17/18 15:10 Blood-Venous Blood Culture - Final Streptococcus anginosus group 08/17/18 15:10 Blood-Venous Gram Stain - Final 08/18/18 07:27 Naris MRSA Culture (Admit) - Final MRSA NOT DETECTED 08/17/18 16:21 Urine,Clean Catch Urine Culture - Final No Growth (<1,000 CFU/ML) Most Recent Lab Values WBC 8.6 K/uL (4.8-10.8) 08/25/18 07:09 RBC 3.55 Mil/uL (4.40-5.90) L 08/25/18 07:09 Hgb 10.2 g/dL (12.0-18.0) L 08/25/18 07:09 Hct 31.2 % (35.0-51.0) L 08/25/18 07:09 MCV 87.7 fL (80.0-94.0) 08/25/18 07:09 MCH 28.6 pg (27.0-31.0) 08/25/18 07:09 MCHC 32.6 g/dL (33.0-37.0) L 08/25/18 07:09 RDW 14.1 % (11.5-14.5) 08/25/18 07:09 Plt Count 320 K/uL (130-400) 08/25/18 07:09 MPV 8.3 fL (7.2-11.7) 08/25/18 07:09 Neut % (Auto) 67.7 % (50.0-75.0) 08/25/18 07:09 Lymph % (Auto) 18.3 % (20.0-40.0) L 08/25/18 07:09 [place] % (Auto) 9.7 % (0.0-10.0) 08/25/18 07:09 Eos % (Auto) 3.4 % (0.0-4.0) 08/25/18 07:09 Baso % (Auto) 0.9 % (0.0-2.0) 08/25/18 07:09 Neut # (Auto) 5.8 K/uL (1.8-7.0) 08/25/18 07:09 Lymph # (Auto) 1.6 K/uL (1.0-4.3) 08/25/18 07:09 [place] # (Auto) 0.8 K/uL (0.0-0.8) 08/25/18 07:09 Eos # (Auto) 0.3 K/uL (0.0-0.7) 08/25/18 07:09 Baso # (Auto) 0.1 K/uL (0.0-0.2) 08/25/18 07:09 Neutrophils % (Manual) 91 % (50-75) H 08/20/18 05:52 Band Neutrophils % 13 % (0-2) H* 08/19/18 06:48 Lymphocytes % (Manual) 6 % (20-40) L 08/20/18 05:52 Reactive Lymphs % 1 % (0-0) H 08/18/18 05:49 Monocytes % (Manual) 2 % (0-10) 08/20/18 05:52 Eosinophils % (Manual) 1 % (0-4) 08/20/18 05:52 Platelet Estimate Normal (NORMAL) 08/20/18 05:52 Large Platelets Present 08/18/18 05:49 Giant Platelets Present 08/18/18 05:49 Polychromasia Slight 08/20/18 05:52 Hypochromasia (manual) Slight 08/20/18 05:52 Poikilocytosis (manual Slight 08/19/18 06:48 Anisocytosis (manual) Slight 08/19/18 06:48 Target Cells Slight 08/17/18 15:27 Ovalocytes Slight 08/19/18 06:48 ESR 48 mm/hr (0-15) H 08/21/18 06:10 Haptoglobin 232.0 mg/dL (30.0-200.0) H 08/20/18 15:23 PT 14.5 SECONDS (9.7-12.2) H 08/20/18 15:23 INR 1.3 08/20/18 15:23 pO2 23 mm/Hg (30-55) L 08/17/18 18:05 VBG pH 7.45 (7.32-7.43) H 08/17/18 18:05 VBG pCO2 36 mmHg (40-60) L 08/17/18 18:05 VBG HCO3 24.5 mmol/L 08/17/18 18:05 VBG Total CO2 26.1 mmol/L (22-28) 08/17/18 18:05 VBG O2 Sat (Calc) 58.8 % (40-65) 08/17/18 18:05 VBG Base Excess 1.3 mmol/L (0.0-2.0) 08/17/18 18:05 VBG Potassium 3.8 mmol/L (3.6-5.2) 08/17/18 18:05 Sodium 131.0 mmol/l (132-148) L 08/17/18 18:05 Chloride 99.0 mmol/L (98-107) 08/17/18 18:05 Glucose 366 mg/dl (75-110) H 08/17/18 18:05 Lactate 3.3 mmol/L (0.7-2.1) H 08/17/18 18:05 FiO2 21.0 % 08/17/18 18:05 Crit Value Called To Armani iyer 08/17/18 15:25 Crit Value Called By [facility] 08/17/18 15:25 Crit Value Read Back Y 08/17/18 15:25 Blood Gas Notified Time 1532 08/17/18 15:25 Sodium 134 mmol/L (132-148) 08/25/18 07:09 Potassium 3.6 mmol/L (3.6-5.2) 08/25/18 07:09 Chloride 96 mmol/L (98-107) L 08/25/18 07:09 Carbon Dioxide 29 mmol/L (22-30) 08/25/18 07:09 Anion Gap 12 (10-20) 08/25/18 07:09 BUN 5 mg/dL (9-20) L 08/25/18 07:09 Creatinine 0.4 mg/dL (0.8-1.5) L 08/25/18 07:09 Est GFR ( Amer) > 60 08/25/18 07:09 Est GFR (Non-Af Amer) > 60 08/25/18 07:09 POC Glucose (mg/dL) 317 mg/dL (65-110) H 08/25/18 11:13 Random Glucose 212 mg/dL (75-110) H D 08/25/18 07:09 Hemoglobin A1c 10.9 % (4.2-6.5) H 08/17/18 19:30 Calcium 8.2 mg/dl (8.6-10.4) L 08/25/18 07:09 Phosphorus 3.9 mg/dL (2.5-4.5) 08/20/18 05:52 Magnesium 2.0 mg/dL (1.6-2.3) 08/20/18 05:52 Iron < 10 ug/dL (49-181) L 08/19/18 06:48 TIBC 159 ug/dL (250-450) L 08/19/18 06:48 % Saturation 6.3 (20-55) L 08/19/18 06:48 Ferritin 493.0 ng/mL 08/19/18 06:48 Total Bilirubin 0.4 mg/dL (0.2-1.3) 08/25/18 07:09 Direct Bilirubin 0.2 mg/dL (0.0-0.4) 08/21/18 06:10 GGT 179 U/L (8-78) H 08/19/18 06:48 AST 21 U/L (17-59) 08/25/18 07:09 ALT 59 U/L (21-72) 08/25/18 07:09 Alkaline Phosphatase 147 U/L (38-126) H 08/25/18 07:09 Lactate Dehydrogenase 1704 U/L (313-618) H 08/18/18 05:49 Total Protein 6.3 g/dL (6.3-8.3) 08/25/18 07:09 Total Protein (PEP) 5.2 g/dL (6.1-8.1) L 08/20/18 10:25 Albumin 3.0 g/dL (3.5-5.0) L 08/25/18 07:09 Albumin (PEP) 2.2 g/dL (3.8-4.8) L 08/20/18 10:25 Globulin 3.3 gm/dL (2.2-3.9) 08/25/18 07:09 Albumin/Globulin Ratio 0.9 (1.0-2.1) L 08/25/18 07:09 Theyt-9-Hbmaoupmz 0.5 g/dL (0.2-0.3) H 08/20/18 10:25 Gnmky-4-Sborgytoj 0.7 g/dL (0.5-0.9) 08/20/18 10:25 Khkb-1-Ksfzryct 0.3 g/dL (0.4-0.6) L 08/20/18 10:25 Idjt-4-Hikjctei 0.5 g/dL (0.2-0.5) 08/20/18 10:25 Gamma Globulins 0.9 g/dL (0.8-1.7) 08/20/18 10:25 Abnorm Protein Band 1 TEST NOT PERFORMED 08/20/18 10:25 Abnorm Protein Band 2 TEST NOT PERFORMED 08/20/18 10:25 Abnorm Protein Band 3 TEST NOT PERFORMED 08/20/18 10:25 Xgoqc-4-Giqskrnfsge 228 mg/dL (83-199) H 08/20/18 10:23 Ceruloplasmin 33 mg/dL (18-36) 08/20/18 10:23 Vitamin B12 > 1000 pg/mL (239-931) H 01/06/19 06:48 Procalcitonin 63.50 NG/ML (0.19-0.49) H 08/17/18 18:36 Cortisol AM Sample 16.5 ug/dL (4.46-22.7) 08/19/18 09:16 Venous Blood Potassium 3.8 mmol/L (3.6-5.2) 08/17/18 18:05 Urine Color Yellow (YELLOW) 08/17/18 16:21 Urine Clarity Hazy (Clear) 08/17/18 16:21 Urine pH 6.0 (5.0-8.0) 08/17/18 16:21 Ur Specific Donaldson 1.011 (1.003-1.030) 08/17/18 16:21 Urine Protein 2+ mg/dL (NEGATIVE) H 08/17/18 16:21 Urine Glucose (UA) 3+ mg/dL (Normal) H 08/17/18 16:21 Urine Ketones 1+ mg/dL (NEGATIVE) H 08/17/18 16:21 Urine Blood Negative (NEGATIVE) 08/17/18 16:21 Urine Nitrate Negative (NEGATIVE) 08/17/18 16:21 Urine Bilirubin Negative (NEGATIVE) 08/17/18 16:21 Urine Urobilinogen 4.0 mg/dL (0.2-1.0) 08/17/18 16:21 Ur Leukocyte Esterase Neg Fausto/uL (Negative) 08/17/18 16:21 Urine WBC (Auto) 3 /hpf (0-5) 08/17/18 16:21 Urine RBC (Auto) 2 /hpf (0-3) 08/17/18 16:21 Ur Squamous Epith Cells < 1 /hpf (0-5) 08/17/18 16:21 Urine Bacteria Rare (<OCC) 08/17/18 16:21 Hyaline Casts >20 /lpf (0-2) H 08/17/18 16:21 Stool Occult Blood Positive (NEGATIVE) H 08/20/18 11:39 Stool H. pylori Ag Not detected (Not Detected) 08/20/18 11:29 Vancomycin Trough 13.5 ug/mL (5.0-10.0) H 08/20/18 21:41 Urine Opiates Screen Negative (NEGATIVE) 08/17/18 18:04 Urine Methadone Screen Negative (NEGATIVE) 08/17/18 18:04 Ur Barbiturates Screen Negative (NEGATIVE) 08/17/18 18:04 Ur Phencyclidine Scrn Negative (NEGATIVE) 08/17/18 18:04 Ur Amphetamines Screen Negative (NEGATIVE) 08/17/18 18:04 U Benzodiazepines Scrn Negative (NEGATIVE) 08/17/18 18:04 U Oth Cocaine Metabols Negative (NEGATIVE) 08/17/18 18:04 U Cannabinoids Screen Negative (NEGATIVE) 08/17/18 18:04 Alcohol, Quantitative < 10 mg/dl (0-10) 08/17/18 16:26 B-Hydroxybutyrate 1.40 mM (0.02-0.27) H 08/17/18 16:26 IgA 467 mg/dL (81-463) H 08/20/18 10:23 MELODY & SPEP Interp See note 08/20/18 10:25 Serum Immunofixation Detected (Not Detected) H 08/20/18 10:25 ROMARIO Screen Positive (Negative) H 08/18/18 08:24 ROMARIO Titer 1:640 Titer (<1:40) H 08/18/18 08:24 ROMARIO Pattern Nucleolar H 08/18/18 08:24 ANCA Screen Negative (NEGATIVE) 08/20/18 10:23 c-ANCA Titer TNP 08/20/18 10:23 Proteinase 3 (PR3) <1.0 AI (<1.0) 08/20/18 10:23 p-ANCA Titer TNP 08/20/18 10:23 Atypical p-ANCA Titer TNP 08/20/18 10:23 Myeloperoxidase Ab <1.0 AI (<1.0) 08/20/18 10:23 Anti-Mitochondrial Ab Negative (Negative) 08/20/18 10:23 Smooth Muscle Ab Titer TEST NOT PERFORMED 08/20/18 10:23 Anti-Smooth Muscle Ab Negative (Negative) 08/20/18 10:23 Endomysial IgA Ab Titer TEST NOT PERFORMED 08/20/18 10:23 Endomysial IgA Ab TEST NOT PERFORMED 08/20/18 10:23 Tiss Transglutamin IgA 1 U/mL 08/20/18 10:23 Celiac Disease Interp See note 08/20/18 10:23 Complement C4 23.3 mg/dL (14.0-44.0) 08/21/18 06:10 Tot Complement (CH50) >60 U/mL (31-60) H 08/21/18 07:19 Absolute Lymphs (Flow) 2172 Cells/mcL (850-3900) 08/19/18 06:48 % CD4 Cells 59 Percent (30-61) 08/19/18 06:48 Absolute CD4 Count 1287 Cells/mcL (490-1740) 08/19/18 06:48 T-Help/Suppress Ratio 5.26 Ratio (0.86-5.00) H 08/19/18 06:48 % CD8 Cells 11 Percent (12-42) L 08/19/18 06:48 Absolute CD8 Count 244 Cells/mcL (180-1170) 08/19/18 06:48 H. pylori Source Stool 08/20/18 11:29 Hepatitis A IgM Ab Negative (NEGATIVE) 08/18/18 11:44 Hep Bs Antigen Negative (NEGATIVE) 08/18/18 11:44 Hep B Core IgM Ab Negative (NEGATIVE) 08/18/18 11:44 Hepatitis C Antibody Negative (NEGATIVE) 08/18/18 11:44 HIV 1&2 Ag/Ab, 4th Gen Nonreactive 08/18/18 11:44 Influenza Typ A,B (EIA) Negative for flu a/b (NEGATIVE) 08/17/18 16:02 Influenza Type A Ab 1:16 titer (<1:8) H 08/18/18 08:24 Influenza Type B Ab <1:8 titer (<1:8) 08/18/18 08:24 - Hospital Course Hospital Course: Patient was admitted from emergency room. Patient states that 2 days ago there was a medical van from [facility] where he did his blood sugar which was over 500. Patient was given Accu-Chek machine and he checked again the sugar prior to admission which was 472. On the day of admission patient was working in his job and suddenly felt nauseous and diaphoretic and had a near syncopal episode. Patient was brought to the emergency room patient had a hypertension IV fluids were given with mild improvement of the blood pressure in the 90s patient had a high sugar mild ketones chest x-ray was normal and there was no evidence of any obvious focus of infection. Sepsis could was called patient was given IV antibiotic and admitted to ICU. Patient does not give any medical illness. The last time patient saw any physician was 10 years ago for sugar. Since then patient has not taken any medication. Patient is also complaining of mild edema of the legs and generalized aches and pains. Patient was admitted in ICU patient was maintained with Levophed IV fluids antibiotics and monitor the sugar with insulin. Patient improved on above therapy chest x-ray showed resolution of pneumonia. The blood cultures were positive for Streptococcus angiosis and also influenza was positive. Patient also had abnormal liver function lap maker was consulted CT of the abdomen showed nodular lesion on the liver suggestive of cirrhosis but on further testing the renal function improved as the blood pressure improved and the diagnosis was possible toxic liver injury. Patient was transferred to the floor sugar was maintained with sliding scale of insulin. Ceretec scan was done which was negative for any abscess. There was also a question of air in the scrotal wall which was ruled out as possible edema and not infectious. Currently patient is stable is refused to go to rehab will go home on by mouth antibiotics to Metformin and patient has an Accu-Chek machine at home with follow in the office in 10 days and will plan further. Discharge Exam - Head Exam Head Exam: NORMOCEPHALIC Discharge Plan - Discharge Medications Prescriptions: Folic Acid 1 mg PO DAILY #30 tab metFORMIN [glucOPHAGE] 500 mg PO BID #60 tab Multivitamins [Hexavitamin] 1 tab PO DAILY #30 tab Cephalexin [cephalexin] 500 mg PO BID #10 cap - Follow Up Plan Condition: CRITICAL Disposition: HOME/ ROUTINE Instructions: Diabetes Type 2 (DC), Sepsis, Adult (DC), Low Blood Pressure (DC) Additional Instructions: Please f/u with Dr. Ramey office in 1 week (f/u visit) Please continue medication as per med. rec. 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
== END 2018-08-25 14:45 | disposition home or self-care (01) | DRG 871 ==
LOC: C.ER 14:42 → C.9E 17:55 → C.9I 18:59 → C.9E 19:35 → C.9I 08-18 00:50 → C.3T 08-21 17:55
PROVIDERS: ADMIT Internal Medicine Cardiovascular Disease; ATTEND Internal Medicine Cardiovascular Disease
PROC: 02HV33Z Insertion of Infusion Device into Superior Vena Cava, Percutaneous Approach (ICD-10-PCS; principal; 2018-08-17)
DX: A40.8 Other streptococcal sepsis (principal); R65.21 Severe sepsis with septic shock; J11.08 Influenza due to unidentified influenza virus with specified pneumonia; J13 Pneumonia due to Streptococcus pneumoniae; K72.00 Acute and subacute hepatic failure without coma; R18.8 Other ascites; A41.89 Other specified sepsis; E11.65 Type 2 diabetes mellitus with hyperglycemia; E86.0 Dehydration; D50.9 Iron deficiency anemia, unspecified; D63.8 Anemia in other chronic diseases classified elsewhere; I11.9 Hypertensive heart disease without heart failure; I95.9 Hypotension, unspecified; K74.60 Unspecified cirrhosis of liver; N50.3 Cyst of epididymis; K59.00 Constipation, unspecified; F17.210 Nicotine dependence, cigarettes, uncomplicated; N50.89 Other specified disorders of the male genital organs; R59.9 Enlarged lymph nodes, unspecified; I51.7 Cardiomegaly; R13.10 Dysphagia, unspecified; R63.4 Abnormal weight loss; Z68.22 Body mass index [BMI] 22.0-22.9, adult; Z87.11 Personal history of peptic ulcer disease; Z87.01 Personal history of pneumonia (recurrent); Z79.84 Long term (current) use of oral hypoglycemic drugs; Z91.14 Patient's other noncompliance with medication regimen

== ENCOUNTER 2018-11-08 12:39 | Inpatient (IN) | payer BC ==
[2018-11-08 12:53] VITALS: BMI 16.5
[2018-11-08] MEDS ORDERED: Sodium Chloride 0.9% 1,000 ML IV ONE (13:06)
[2018-11-08] MEDS ORDERED: Sodium Chloride 0.9% 1,500 ML IV ONE (13:16)
[2018-11-08] MEDS ORDERED: Piperacillin/Tazobact 3.375 GM in Sodium Chloride 100 ML IVPB STA (13:18)
[2018-11-08] MEDS ORDERED: Sodium Chloride 0.9% 1,000 ML ONE (13:33)
[2018-11-08] MEDS ORDERED: Sodium Chloride 0.9% 500 ML IV ONE (13:33)
[2018-11-08 13:36] LABS: VENOUS BLOOD GAS BASE EXCESS -10.5 mmol/L (0.0-2.0); VENOUS BLOOD GAS PCO2 25 mmHg (40-60); VENOUS BLOOD GAS PO2 21 mm/Hg (30-55); VENOUS BLOOD PH 7.34 (7.32-7.43)
--- NOTE | 2018-11-08 13:42 | C.PDOC ---
History Of Present Illness 58 year old male presents to ED s/p fall that occurred at home today. Patient states that he as at home moving from one room to another when he felt his legs go weak. Patient lives at home with his elderly mother. He has a PMHx of miranda guadarrama. Patient admits to smoking and drinking. Patient has chronic SOB. He was admitted in August 2018 and it was the first time he had seen a doctor in 10 years. Patient was admitted for hyperglycemia and sepsis. Patient followed up with Dr. Ramey. He denies head trauma, head pain, neck pain, chest pain, abdominal pain, nausea, vomiting, fever, chills, melena, and dysuria. - HPI Time Seen by Provider: 11/08/18 12:55 Chief Complaint (Nursing): Shortness Of Breath History Per: Patient History/Exam Limitations: no limitations Onset/Duration Of Symptoms: Hrs - Fall Fall:Prior To Injury: Other (weakness) Past Medical History Reviewed: Historical Data, Nursing Documentation, Vital Signs Vital Signs: Last Vital Signs Temp 94.8 F L 11/08/18 13:00 Pulse 99 H 11/08/18 13:00 Resp 26 H 11/08/18 13:00 BP 89/56 L 11/08/18 13:00 Pulse Ox 94 L 11/08/18 13:00 - Medical History PMH: Anemia, Diabetes, Gastrointestinal Ulcer, Pneumonia Denies: Chronic Kidney Disease Surgical History: No Surg Hx - [facility] Procedures INSERTION OF INFUSION DEV INTO SUP VENA CAVA, PERC APPROACH (08/17/18) Family History: States: Unknown Family Hx - Social History Hx Alcohol Use: Yes (1 Beer at night) Hx Substance Use: No - Immunization History Hx Tetanus Toxoid Vaccination: No Hx Influenza Vaccination: No Hx Pneumococcal Vaccination: No Review Of Systems Constitutional: Positive for: Weakness (lower extremities). Negative for: Fever, Chills Cardiovascular: Negative for: Chest Pain Respiratory: Positive for: Shortness of Breath Gastrointestinal: Negative for: Nausea, Vomiting, Abdominal Pain, Melena Genitourinary: Negative for: Dysuria Musculoskeletal: Negative for: Neck Pain Neurological: Negative for: Numbness, Headache, Dizziness Physical Exam - Physical Exam Appears: Non-toxic, No Acute Distress, Other (frail,cachectic, skeletal in appearance, muscle wasting) Skin: Pale Head: Atraumatic, Normacephalic Eye(s): bilateral: Conjunctiva Pale Neck: Normal ROM, Supple Cardiovascular: Rhythm Regular, No Murmur Gastrointestinal/Abdominal: No Tenderness, Other (scaphoid) Rectal: No Melena, Other (no stool in vault, creamy-colored discharge ) Extremity: Other (+1 edema to the lower extremities and hands) Neurological/Psych: Oriented x3, Normal Speech, Normal Cognition ED Course And Treatment - Laboratory Results Result Diagrams: 11/08/18 13:39 11/08/18 13:39 Lab Results: pO2 21 mm/Hg (30-55) L 11/08/18 13:31 VBG pH 7.34 (7.32-7.43) 11/08/18 13:31 VBG pCO2 25 mmHg (40-60) L 11/08/18 13:31 VBG HCO3 14.9 mmol/L 11/08/18 13:31 VBG Total CO2 14.3 mmol/L (22-28) L 11/08/18 13:31 VBG O2 Sat (Calc) 33.2 % (40-65) L 11/08/18 13:31 VBG Base Excess -10.5 mmol/L (0.0-2.0) L 11/08/18 13:31 VBG Potassium 2.3 mmol/L (3.6-5.2) L* 11/08/18 13:31 Sodium 143.0 mmol/l (132-148) 11/08/18 13:31 Chloride 111.0 mmol/L (98-107) H 11/08/18 13:31 Glucose 298 mg/dl (75-110) H 11/08/18 13:31 Lactate 3.5 mmol/L (0.7-2.1) H 11/08/18 13:31 Crit Value Called To Power iyer 11/08/18 13:31 Crit Value Called By Alicia collins rrt 11/08/18 13:31 Crit Value Read Back Y 11/08/18 13:31 Blood Gas Notified Time 1337 11/08/18 13:31 ECG: Interpreted By Me, Viewed By Me Interpretation Of ECG: Shaky baseline. No ST elevation or depression. Rate From EC O2 Sat by Pulse Oximetry: 94 (in RA) Medical Decision Making Medical Decision Making: Impression: 58 year old male presents to ED s/p fall that occurred at home. Plan: VBG, EKG, and CXR ordered for patient Labs ordered with troponin, type and screen, blood culture, urine culture, stool sample, and UA Patient given IV fluids, Vancomycin IVPB, and Zosyn IVPB Patient requested that he be admitted under Dr. Price's service. Disposition Discussed With Dr.: Georgette Osorio - Disposition Disposition: HOSPITALIZED Disposition Time: 14:19 Condition: CRITICAL Forms: [facility] (Rwandan) - Clinical Impression Clinical Impression: Sepsis, Anemia, Hypokalemia, Hypothermia, Hyperglycemia - Scribe Statement The provider has reviewed the documentation as recorded by the Scribe (eYnny Murrieta) All medical record entries made by the Scribe were at my direction and personally dictated by me. I have reviewed the chart and agree that the record accurately reflects my personal performance of the history, physical exam, medical decision making, and the department course for this patient. I have also personally directed, reviewed, and agree with the discharge instructions and disposition. Decision To Admit - Pt Status Changed To: Hospital Disposition Of: Inpatient - Admit Certification Admit to Inpatient:: After my assessment, the patient will require hosp italization for at least two midnights. This is because of the severity of symptoms shown, intensity of services needed, and/or the medical risk in this patient being treated as an outpatient. - InPatient: Physician Admission Certification: I certify that this patient requires 2 or more midnights of care for the following reason:: septic shock - . Bed Request Type: ICU Admitting Physician: Georgette Osorio Patient Diagnosis: Sepsis, Anemia, Hypokalemia, Hypothermia, Hyperglycemia
[2018-11-08 13:50] LABS: MONO # 1.4 K/uL (0.0-0.8)
[2018-11-08] MEDS ORDERED: Piperacillin/Tazobact 3.375 gm 100 ML IVPB ONE (13:52)
[2018-11-08 13:55] LABS: BASO % 0.3 % (0.0-2.0); EOS % 0.1 % (0.0-4.0); LYMPH # 0.5 K/uL (1.0-4.3); LYMPH % 2.8 % (20.0-40.0); MEAN CORPUSCULAR HEMOGLOBIN 23.9 pg (27.0-31.0); MEAN CORPUSCULAR HGB CONC 29.7 g/dL (33.0-37.0); MEAN PLATELET VOLUME 8.2 fL (7.2-11.7); MONO % 8.1 % (0.0-10.0); NEUT # 15.2 K/uL (1.8-7.0); NEUT % 88.7 % (50.0-75.0); PLATELET COUNT 324 K/uL (130-400); RBC 2.08 Mil/uL (4.40-5.90); RED CELL DISTRIBUTION WIDTH 17.8 % (11.5-14.5)
[2018-11-08 13:58] LABS: ALB/GLOB RATIO 0.6 (1.0-2.1); ALBUMIN 1.7 g/dL (3.5-5.0); ALT/SGPT 11 U/L (21-72); AST/SGOT 12 U/L (17-59); BLOOD UREA NITROGEN 14 mg/dL (9-20); CALCIUM 7.7 mg/dl (8.6-10.4); GFR NON-AFRICAN AMERICAN > 60; INR 1.7; PROTHROMBIN TIME 18.7 SECONDS (9.7-12.2)
[2018-11-08 14:00] LABS: MEAN CELL VOLUME 80.7 fL (80.0-94.0); WHITE BLOOD COUNT 17.2 K/uL (4.8-10.8)
[2018-11-08] MEDS ORDERED: (Novolin R) Insulin Human Regular 100 units/ml vial IVP STA (14:00)
[2018-11-08 14:09] LABS: B-TYPE NATRIURETIC PEPTIDE 421 pg/mL (0-900)
[2018-11-08 14:17] LABS: SQUAMOUS EPITHIAL < 1 /hpf (0-5); URINE BACTERIA RARE (<OCC); URINE BILIRUBIN NEGATIVE (NEGATIVE); URINE BLOOD NEGATIVE (NEGATIVE); URINE CLARITY Hazy (Clear); URINE COLOR Yellow (YELLOW); URINE GLUCOSE (UA) 3+ mg/dL (Normal); URINE HYALINE CAST >20 /lpf (0-2); URINE LEUKOCYTE ESTERASE NEG Leu/uL (Negative); URINE PROTEIN 1+ mg/dL (NEGATIVE); URINE UROBILINOGEN NORMAL mg/dL (0.2-1.0)
--- NOTE | 2018-11-08 14:19 | RAD ---
HISTORY: Sepsis Patient COMPARISON: Chest x-ray performed 08/17/18 TECHNIQUE: Chest, one view. FINDINGS: LUNGS: Layering left pleural effusion and/or consolidation. No definite pneumothorax. CARDIOVASCULAR: Partially obscured. Otherwise grossly unremarkable. OSSEOUS STRUCTURES: Degenerative changes. VISUALIZED UPPER ABDOMEN: Unremarkable. OTHER FINDINGS: None. IMPRESSION: Layering left pleural effusion and/or consolidation.
[2018-11-08] MEDS ORDERED: Vancomycin 1 GM 1 GM/250 ML BAG IVPB ONE (14:35)
[2018-11-08] MEDS ORDERED: Potassium Chloride 20 mEq 100 ML ONE (14:35)
[2018-11-08] MEDS ORDERED: (Novolin R) Insulin Human Regular 100 units/ml vial ONE (14:36)
[2018-11-08] MEDS ORDERED: Iodixanol 320 MG/ML 100 ML BOTTLE IV ONE (14:47)
[2018-11-08] MEDS ORDERED: Glucagon Recombinant 1 mg Inj IM PRN (14:57)
[2018-11-08] MEDS ORDERED: Dextrose 50% SYRINGE Inj (50 ml) IV PRN (14:57)
[2018-11-08 15:06] LABS: VENOUS BLOOD GAS BASE EXCESS -11.4 mmol/L (0.0-2.0); VENOUS BLOOD GAS PCO2 23 mmHg (40-60); VENOUS BLOOD GAS PO2 73 mm/Hg (30-55); VENOUS BLOOD PH 7.34 (7.32-7.43)
--- NOTE | 2018-11-08 15:12 | CP.PCM.CON ---
<Bert Knight - Last Filed: 11/08/18 18:14> Meds Allergies/Adverse Reactions: Allergies Allergy/AdvReac Type Severity Reaction Status Date / Time No Known Allergies Allergy Verified 11/08/18 12:52 - Medications Medications: Current Medications Dextrose (Dextrose 50% Inj) 0 ml IV STAT PRN; Protocol PRN Reason: Hypoglycemia Protocol Dextrose (Glutose 15) 0 gm PO ONCE PRN; Protocol PRN Reason: Hypoglycemia Protocol Glucagon (Glucagen Diagnostic Kit) 0 mg IM STAT PRN; Protocol PRN Reason: Hypoglycemia Protocol Dextrose (Dextrose 5% In Water 1000 Ml) 1,000 mls @ 0 mls/hr IV .Q0M PRN; Protocol PRN Reason: Hypoglycemia Protocol Sodium Chloride (Sodium Chloride 0.9%) 1,000 mls @ 100 mls/hr IV .Q10H EDER Last Admin: 11/08/18 16:10 Dose: Not Given Potassium Chloride (Potassium Chloride 10 Meq/100 Ml) 10 meq in 100 mls @ 100 mls/hr IVPB Q1H EDER Stop: 11/08/18 19:29 Last Admin: 11/08/18 18:05 Dose: 100 mls/hr Piperacillin Sod/Tazobactam Sod (Zosyn 3.375 Gm Iv Premix) 3.375 gm in 50 mls @ 100 mls/hr IVPB Q6H EDER; Protocol Vancomycin/Sodium Chloride (Vancomycin 1 Gm/Ns 200 Ml) 1 gm in 200 mls @ 133.333 mls/hr IVPB Q12H EDER; Protocol Stop: 11/14/18 02:31 Insulin Human Regular (Novolin R) 0 unit SC Q6 EDER; Protocol Pantoprazole Sodium (Protonix Inj) 40 mg IVP Q12H EDER Results - Vital Signs Recent Vital Signs: Last Vital Signs Temp 98.0 F 11/08/18 18:04 Pulse 94 H 11/08/18 18:04 Resp 18 11/08/18 18:04 BP 88/56 L 11/08/18 18:04 Pulse Ox 95 11/08/18 14:55 - Labs Result Diagrams: 11/08/18 13:39 11/08/18 13:39 Labs: Laboratory Results - last 24 hr 11/08/18 11/08/18 11/08/18 13:31 13:35 13:39 WBC 17.2 H D RBC 2.08 L Hgb 5.0 L* D Hct 16.8 L MCV 80.7 D MCH 23.9 L MCHC 29.7 L RDW 17.8 H Plt Count 324 MPV 8.2 Neut % (Auto) 88.7 H Lymph % (Auto) 2.8 L Brooks % (Auto) 8.1 Eos % (Auto) 0.1 Baso % (Auto) 0.3 Neut # (Auto) 15.2 H Lymph # (Auto) 0.5 L Brooks # (Auto) 1.4 H Eos # (Auto) 0.0 Baso # (Auto) 0.0 Neutrophils % (Manual) 74 Band Neutrophils % 10 H Lymphocytes % (Manual) 3 L Monocytes % (Manual) 13 H Toxic Granulation Present Platelet Estimate Normal Hypochromasia (manual) Moderate Anisocytosis (manual) Slight Smear Path Review PT INR APTT pO2 21 L VBG pH 7.34 VBG pCO2 25 L VBG HCO3 14.9 VBG Total CO2 14.3 L VBG O2 Sat (Calc) 33.2 L VBG Base Excess -10.5 L VBG Potassium 2.3 L* Sodium 143.0 Chloride 111.0 H Glucose 298 H Lactate 3.5 H Crit Value Called To Power rn Crit Value Called By Alicia collins [employer] help[employer] Crit Value Read Back Y Blood Gas Notified Time 1337 Potassium Carbon Dioxide Anion Gap BUN Creatinine Est GFR ( Amer) Est GFR (Non-Af Amer) POC Glucose (mg/dL) 450 H* Random Glucose Calcium Phosphorus Magnesium Iron TIBC % Saturation Transferrin Ferritin Total Bilirubin AST ALT Alkaline Phosphatase Ammonia Troponin I NT-Pro-B Natriuret Pep Total Protein Albumin Globulin Albumin/Globulin Ratio Vitamin B12 Folate Venous Blood Potassium 2.3 L* Urine Color Urine Clarity Urine pH Ur Specific [place] Urine Protein Urine Glucose (UA) Urine Ketones Urine Blood Urine Nitrate Urine Bilirubin Urine Urobilinogen Ur Leukocyte Esterase Urine WBC (Auto) Urine RBC (Auto) Ur Squamous Epith Cells Urine Bacteria Hyaline Casts Stool Occult Blood Alcohol, Quantitative B-Hydroxybutyrate Hepatitis A IgM Ab Hep Bs Antigen Hep B Core IgM Ab Hepatitis C Antibody Blood Type Blood Type Confirm Antibody Screen 11/08/18 11/08/18 11/08/18 13:39 13:39 13:39 WBC RBC Hgb Hct MCV MCH MCHC RDW Plt Count MPV Neut % (Auto) Lymph % (Auto) Brooks % (Auto) Eos % (Auto) Baso % (Auto) Neut # (Auto) Lymph # (Auto) Brooks # (Auto) Eos # (Auto) Baso # (Auto) Neutrophils % (Manual) Band Neutrophils % Lymphocytes % (Manual) Monocytes % (Manual) Toxic Granulation Platelet Estimate Hypochromasia (manual) Anisocytosis (manual) Smear Path Review PT 18.7 H INR 1.7 APTT 30 pO2 VBG pH VBG pCO2 VBG HCO3 VBG Total CO2 VBG O2 Sat (Calc) VBG Base Excess VBG Potassium Sodium 138 Chloride 109 H Glucose Lactate Crit Value Called To Crit Value Called By Crit Value Read Back Blood Gas Notified Time Potassium 2.6 L Carbon Dioxide 16 L Anion Gap 16 BUN 14 Creatinine 0.5 L Est GFR ( Amer) > 60 Est GFR (Non-Af Amer) > 60 POC Glucose (mg/dL) Random Glucose 307 H D Calcium 7.7 L Phosphorus 2.2 L Magnesium 1.6 Iron TIBC % Saturation Transferrin Ferritin Total Bilirubin 0.3 AST 12 L D ALT 11 L D Alkaline Phosphatase 74 Ammonia Troponin I < 0.0120 NT-Pro-B Natriuret Pep 421 Total Protein 4.5 L Albumin 1.7 L D Globulin 2.8 Albumin/Globulin Ratio 0.6 L Vitamin B12 Folate Venous Blood Potassium Urine Color Urine Clarity Urine pH Ur Specific [place] Urine Protein Urine Glucose (UA) Urine Ketones Urine Blood Urine Nitrate Urine Bilirubin Urine Urobilinogen Ur Leukocyte Esterase Urine WBC (Auto) Urine RBC (Auto) Ur Squamous Epith Cells Urine Bacteria Hyaline Casts Stool Occult Blood Alcohol, Quantitative B-Hydroxybutyrate Hepatitis A IgM Ab Hep Bs Antigen Hep B Core IgM Ab Hepatitis C Antibody Blood Type AB POSITIVE Blood Type Confirm AB POSITIVE Antibody Screen Negative 11/08/18 11/08/18 11/08/18 13:39 14:07 14:55 WBC RBC Hgb Hct MCV MCH MCHC RDW Plt Count MPV Neut % (Auto) Lymph % (Auto) Brooks % (Auto) Eos % (Auto) Baso % (Auto) Neut # (Auto) Lymph # (Auto) Brooks # (Auto) Eos # (Auto) Baso # (Auto) Neutrophils % (Manual) Band Neutrophils % Lymphocytes % (Manual) Monocytes % (Manual) Toxic Granulation Platelet Estimate Hypochromasia (manual) Anisocytosis (manual) Smear Path Review PT INR APTT pO2 73 H VBG pH 7.34 VBG pCO2 23 L VBG HCO3 15.9 VBG Total CO2 13.1 L VBG O2 Sat (Calc) 94.4 H VBG Base Excess -11.4 L VBG Potassium 2.0 L* Sodium 135.0 Chloride 104.0 Glucose 244 H Lactate 1.7 Crit Value Called To Dr. kumar Crit Value Called By Afsaneh perez rcp Crit Value Read Back Y Blood Gas Notified Time 1505 Potassium Carbon Dioxide Anion Gap BUN Creatinine Est GFR ( Amer) Est GFR (Non-Af Amer) POC Glucose (mg/dL) Random Glucose Calcium Phosphorus Magnesium Iron TIBC % Saturation Transferrin Ferritin Total Bilirubin AST ALT Alkaline Phosphatase Ammonia Troponin I NT-Pro-B Natriuret Pep Total Protein Albumin Globulin Albumin/Globulin Ratio Vitamin B12 Folate Venous Blood Potassium 2.0 L* Urine Color Yellow Urine Clarity Hazy Urine pH 5.0 Ur Specific [place] 1.022 Urine Protein 1+ H Urine Glucose (UA) 3+ H Urine Ketones 2+ H Urine Blood Negative Urine Nitrate Negative Urine Bilirubin Negative Urine Urobilinogen Normal Ur Leukocyte Esterase Neg Urine WBC (Auto) 8 H Urine RBC (Auto) 2 Ur Squamous Epith Cells < 1 Urine Bacteria Rare Hyaline Casts >20 H Stool Occult Blood Negative Alcohol, Quantitative B-Hydroxybutyrate Hepatitis A IgM Ab Hep Bs Antigen Hep B Core IgM Ab Hepatitis C Antibody Blood Type Blood Type Confirm Antibody Screen 11/08/18 11/08/18 11/08/18 16:07 16:07 16:07 WBC RBC Hgb Hct MCV MCH MCHC RDW Plt Count MPV Neut % (Auto) Lymph % (Auto) Brooks % (Auto) Eos % (Auto) Baso % (Auto) Neut # (Auto) Lymph # (Auto) Brooks # (Auto) Eos # (Auto) Baso # (Auto) Neutrophils % (Manual) Band Neutrophils % Lymphocytes % (Manual) Monocytes % (Manual) Toxic Granulation Platelet Estimate Hypochromasia (manual) Anisocytosis (manual) Smear Path Review PT INR APTT pO2 VBG pH VBG pCO2 VBG HCO3 VBG Total CO2 VBG O2 Sat (Calc) VBG Base Excess VBG Potassium Sodium Chloride Glucose Lactate Crit Value Called To Crit Value Called By Crit Value Read Back Blood Gas Notified Time Potassium Carbon Dioxide Anion Gap BUN Creatinine Est GFR ( Amer) Est GFR (Non-Af Amer) POC Glucose (mg/dL) Random Glucose Calcium Phosphorus Magnesium Iron < 10 L TIBC 148 L % Saturation Transferrin < 80.00 L Ferritin 39.5 Total Bilirubin AST ALT Alkaline Phosphatase Ammonia Troponin I NT-Pro-B Natriuret Pep Total Protein Albumin Globulin Albumin/Globulin Ratio Vitamin B12 967 H Folate 10.5 Venous Blood Potassium Urine Color Urine Clarity Urine pH Ur Specific [place] Urine Protein Urine Glucose (UA) Urine Ketones Urine Blood Urine Nitrate Urine Bilirubin Urine Urobilinogen Ur Leukocyte Esterase Urine WBC (Auto) Urine RBC (Auto) Ur Squamous Epith Cells Urine Bacteria Hyaline Casts Stool Occult Blood Alcohol, Quantitative < 10 B-Hydroxybutyrate 4.94 H Hepatitis A IgM Ab Hep Bs Antigen Hep B Core IgM Ab Hepatitis C Antibody Blood Type Blood Type Confirm Antibody Screen 11/08/18 11/08/18 11/08/18 16:07 16:07 16:10 WBC RBC Hgb Hct MCV MCH MCHC RDW Plt Count MPV Neut % (Auto) Lymph % (Auto) Brooks % (Auto) Eos % (Auto) Baso % (Auto) Neut # (Auto) Lymph # (Auto) Brooks # (Auto) Eos # (Auto) Baso # (Auto) Neutrophils % (Manual) Band Neutrophils % Lymphocytes % (Manual) Monocytes % (Manual) Toxic Granulation Platelet Estimate Hypochromasia (manual) Anisocytosis (manual) Smear Path Review PT INR APTT pO2 VBG pH VBG pCO2 VBG HCO3 VBG Total CO2 VBG O2 Sat (Calc) VBG Base Excess VBG Potassium Sodium Chloride Glucose Lactate Crit Value Called To Crit Value Called By Crit Value Read Back Blood Gas Notified Time Potassium Carbon Dioxide Anion Gap BUN Creatinine Est GFR ( Amer) Est GFR (Non-Af Amer) POC Glucose (mg/dL) 300 H Random Glucose Calcium Phosphorus Magnesium Iron TIBC % Saturation Transferrin Ferritin Total Bilirubin AST ALT Alkaline Phosphatase Ammonia 29 Troponin I NT-Pro-B Natriuret Pep Total Protein Albumin Globulin Albumin/Globulin Ratio Vitamin B12 Folate Venous Blood Potassium Urine Color Urine Clarity Urine pH Ur Specific [place] Urine Protein Urine Glucose (UA) Urine Ketones Urine Blood Urine Nitrate Urine Bilirubin Urine Urobilinogen Ur Leukocyte Esterase Urine WBC (Auto) Urine RBC (Auto) Ur Squamous Epith Cells Urine Bacteria Hyaline Casts Stool Occult Blood Alcohol, Quantitative B-Hydroxybutyrate Hepatitis A IgM Ab Negative Hep Bs Antigen Negative Hep B Core IgM Ab Negative Hepatitis C Antibody Negative Blood Type Blood Type Confirm Antibody Screen 11/08/18 18:09 WBC RBC Hgb Hct MCV MCH MCHC RDW Plt Count MPV Neut % (Auto) Lymph % (Auto) Brooks % (Auto) Eos % (Auto) Baso % (Auto) Neut # (Auto) Lymph # (Auto) Brooks # (Auto) Eos # (Auto) Baso # (Auto) Neutrophils % (Manual) Band Neutrophils % Lymphocytes % (Manual) Monocytes % (Manual) Toxic Granulation Platelet Estimate Hypochromasia (manual) Anisocytosis (manual) Smear Path Review PT INR APTT pO2 VBG pH VBG pCO2 VBG HCO3 VBG Total CO2 VBG O2 Sat (Calc) VBG Base Excess VBG Potassium Sodium Chloride Glucose Lactate Crit Value Called To Crit Value Called By Crit Value Read Back Blood Gas Notified Time Potassium Carbon Dioxide Anion Gap BUN Creatinine Est GFR ( Amer) Est GFR (Non-Af Amer) POC Glucose (mg/dL) 213 H Random Glucose Calcium Phosphorus Magnesium Iron TIBC % Saturation Transferrin Ferritin Total Bilirubin AST ALT Alkaline Phosphatase Ammonia Troponin I NT-Pro-B Natriuret Pep Total Protein Albumin Globulin Albumin/Globulin Ratio Vitamin B12 Folate Venous Blood Potassium Urine Color Urine Clarity Urine pH Ur Specific [place] Urine Protein Urine Glucose (UA) Urine Ketones Urine Blood Urine Nitrate Urine Bilirubin Urine Urobilinogen Ur Leukocyte Esterase Urine WBC (Auto) Urine RBC (Auto) Ur Squamous Epith Cells Urine Bacteria Hyaline Casts Stool Occult Blood Alcohol, Quantitative B-Hydroxybutyrate Hepatitis A IgM Ab Hep Bs Antigen Hep B Core IgM Ab Hepatitis C Antibody Blood Type Blood Type Confirm Antibody Screen Attending/Attestation - Attestation I have personally seen and examined this patient.: Yes I have fully participated in the care of the patient.: Yes I have reviewed all pertinent clinical information: Yes Notes (Text): 11/08/18 18:14 I have seen and examined the patient. Medical records, lab studies, and imaging were reviewed by me and a management plan was formulated on multidisciplinary rounds with resident Dr. Garcia. I agree with their documented assessment and plan. Patient p/w severe anemia, no source of bleeding found, most likely chronic ane josh from suspected underlying cancer. We are transfusing with 3 units PRBC and 1 unit FFP. 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 Also has a large left pleural effusion, possibly malignant, scheduled for thoracentesis with IR, to drain and send off cytology. Critical Care Time 35 minutes. Multi-disciplinary rounds were performed with house staff, nursing, speech therapy, respiratory therapy, pharmacy and nutrition with integrated input from the primary team/attending and other consulting services. The documented time is cumulative and includes review of patient data/exams/labs/chart review and examination of the patient on rounds and throughout the day; time is exclusive of any procedures or teaching time. <Stevenson Garcia - Last Filed: 11/08/18 19:06> History of Present Illness - History of Present Illness History of Present Illness: ICU Consult Note for Dr. Knight This is a 58 y o male with PMHx DM2, CHF (last EF 55%) who presents to the ED today s/p fall at home today. States he was moving from 1 room to another at home while carrying his breakfast this am and felt generalized weakness and felt like his legs were about to give out from underneath him. States he slid down on his legs during fall, did not hit head or lose consciousness during episode, fall was unwitnessed. Also reports having near-fall episode yesterday but states he was able to catch himself on his own and balance prior to fall. Reports decreased PO appetite for the past week, reports last BM was 1 week prior. Admits to hx of chronic constipation and pain with straining, does not take any stool softeners at home for symptoms. Admits to unintentional weight loss of 35 lbs over the past year. States he changed his PMD and followed up with Dr. Price after his prior d/c from [facility] in Aug 2018, was referred to Environmental Adviser (Dr. Ma) for further work-up of dyspnea on exertion, which pt states has been present for a long time. Pt states he gets short of breath after only walking several steps at home, and states he has been sitting at home in 1 position more often since his d/c from the hospital in Aug 2018. Pt states he had an abnormal cardiac stress test, but states he did not follow-up with either Dr. Ma or his PMD after he had his test done. Denies hx of sick contacts. Admits to feeling chills. Denies fever, vision changes, lightheadedness, chest pain, sob, n/v/d, abd pain, urinary complaints, melena, hematochezia, numbness/tingling in extremities, or other symptoms. Reason for ICU consult was for Sepsis, low hemoglobin. PMhx: DM2, CHF PSurgHx: Inguinal hernia repair Allergies: NKDA Home meds: Metformin 1000 mg PO bid Fam hx: Mom alive at age 102 with dementia; father unknown PMhx Soc hx: Current 1 ppd cigarette smoker since ; drinks 3 shot glasses of vodka per night, chronic EtOH drinker for 15+ years; denies illicit drug use. Lives at home with mother, primary caregiver for mother. 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 Prior to admission in Aug 2018, did not follow-up with a doctor for 10 years. PMD: Dr. Price Primary Environmental Adviser: Dr. Ma Review of Systems - Constitutional Constitutional: Anorexia, Chills, Fatigue, Weight Loss, Weakness. absent: Fever - EENT Eyes: absent: Change in Vision - Cardiovascular Cardiovascular: Dyspnea on Exertion. absent: Chest Pain, Chest Pain at Rest, Edema, Pain Radiating to Arm/Neck/Jaw, Palpitations, Syncope - Respiratory Respiratory: Dyspnea on Exertion. absent: Cough, Hemoptysis, Wheezing, Chest Congestion - Gastrointestinal Gastrointestinal: Constipation. absent: Abdominal Pain, Change in Bowel Habits, Change in Stool Character, Diarrhea, Hematemesis, Hematochezia, Melena, Nausea, Vomiting - Integumentary Integumentary: Skin Ulcer - Neurological Neurological: Dizziness, Weakness. absent: Numbness, Tingling, Tremor Past Patient History - Past Medical History & Family History Past Medical History?: Yes - Past Social History Smoking Status: Light Smoker < 10 Cigarettes Daily - CARDIAC Hx Cardiac Disorders: No Other/Comment: Cardiomegaly. HYPOTENSION - PULMONARY Hx Pneumonia: Yes - NEUROLOGICAL Hx Neurological Disorder: No - HEENT Hx HEENT Problems: No - RENAL Hx Chronic Kidney Disease: No - ENDOCRINE/METABOLIC Hx Endocrine Disorders: Yes Hx Diabetes Mellitus Type 2: Yes - HEMATOLOGICAL/ONCOLOGICAL Hx Anemia: Yes - INTEGUMENTARY Hx Dermatological Problems: No - MUSCULOSKELETAL/RHEUMATOLOGICAL Hx Musculoskeletal Disorders: No Hx Falls: No - GASTROINTESTINAL Hx Gastrointestinal Disorders: Yes - GENITOURINARY/GYNECOLOGICAL Hx Genitourinary Disorders: No - PSYCHIATRIC Hx Substance Use: No - SURGICAL HISTORY Other/Comment: Hernia Removed / 1990 - ANESTHESIA Hx Anesthesia: Yes Hx Anesthesia Reactions: No Hx Malignant Hyperthermia: No Meds - Medications Medications: Current Medications Dextrose (Dextrose 50% Inj) 0 ml IV STAT PRN; Protocol PRN Reason: Hypoglycemia Protocol Dextrose (Glutose 15) 0 gm PO ONCE PRN; Protocol PRN Reason: Hypoglycemia Protocol Glucagon (Glucagen Diagnostic Kit) 0 mg IM STAT PRN; Protocol PRN Reason: Hypoglycemia Protocol Potassium Chloride (Potassium Chloride 20 Meq/100 Ml) 20 meq in 100 mls @ 50 mls/hr IVPB ONCE ONE Stop: 11/08/18 15:58 Dextrose (Dextrose 5% In Water 1000 Ml) 1,000 mls @ 0 mls/hr IV .Q0M PRN; Protocol PRN Reason: Hypoglycemia Protocol Pantoprazole Sodium 80 mg/ (Sodium Chloride) 100 mls @ 10 mls/hr IVP .Q10H EDER Insulin Human Regular (Novolin R) 0 unit SC Q6H EDER; Protocol Physical Exam - Constitutional Appears: Non-toxic, No Acute Distress, Chronically Ill Additional comments: Pale-appearing on exam - Head Exam Head Exam: ATRAUMATIC, NORMOCEPHALIC - Eye Exam Eye Exam: EOMI, Normal appearance, PERRL - ENT Exam ENT Exam: Mucous Membranes Moist - Respiratory Exam Respiratory Exam: Clear to Auscultation Bilateral, NORMAL BREATHING PATTERN. absent: Rales, Rhonchi, Wheezes - Cardiovascular Exam Cardiovascular Exam: REGULAR RHYTHM, +S1, +S2. absent: Gallop, Rubs, Systolic Murmur - GI/Abdominal Exam GI & Abdominal Exam: Normal Bowel Sounds, Soft. absent: Distended, Organomegaly, Tenderness - Rectal Exam Rectal Exam: NORMAL INSPECTION. absent: Black Stool, Bloody Stool, Hemorrhoids - Extremities Exam Extremities exam: Positive for: normal capillary refill, normal inspection, pedal pulses present - Neurological Exam Neurological exam: Alert, CN II-XII Intact, Oriented x3 - Skin Skin Exam: Dry, Intact, Pallor Additional comments: Stage 1 sacral decubitus ulcer appreciated, c/d/i, no obvious signs of erythema, pus or abnormal drainage from site Results - Vital Signs Recent Vital Signs: Last Vital Signs Temp 94.8 F L 11/08/18 13:00 Pulse 99 H 11/08/18 13:00 Resp 26 H 11/08/18 13:00 BP 89/56 L 11/08/18 13:00 Pulse Ox 94 L 11/08/18 14:21 - Labs Result Diagrams: 11/08/18 13:39 11/08/18 13:39 Labs: Laboratory Results - last 24 hr 11/08/18 11/08/18 11/08/18 13:31 13:35 13:39 WBC 17.2 H D RBC 2.08 L Hgb 5.0 L* D Hct 16.8 L MCV 80.7 D MCH 23.9 L MCHC 29.7 L RDW 17.8 H Plt Count 324 MPV 8.2 Neut % (Auto) 88.7 H Lymph % (Auto) 2.8 L Brooks % (Auto) 8.1 Eos % (Auto) 0.1 Baso % (Auto) 0.3 Neut # (Auto) 15.2 H Lymph # (Auto) 0.5 L Brooks # (Auto) 1.4 H Eos # (Auto) 0.0 Baso # (Auto) 0.0 PT INR APTT pO2 21 L VBG pH 7.34 VBG pCO2 25 L VBG HCO3 14.9 VBG Total CO2 14.3 L VBG O2 Sat (Calc) 33.2 L VBG Base Excess -10.5 L VBG Potassium 2.3 L* Sodium 143.0 Chloride 111.0 H Glucose 298 H Lactate 3.5 H Crit Value Called To Power iyer Crit Value Called By Alicia collins [employer] help[employer] Crit Value Read Back Y Blood Gas Notified Time 1337 Potassium Carbon Dioxide Anion Gap BUN Creatinine Est GFR ( Amer) Est GFR (Non-Af Amer) POC Glucose (mg/dL) 450 H* Random Glucose Calcium Phosphorus Magnesium Total Bilirubin AST ALT Alkaline Phosphatase Troponin I NT-Pro-B Natriuret Pep Total Protein Albumin Globulin Albumin/Globulin Ratio Venous Blood Potassium 2.3 L* Urine Color Urine Clarity Urine pH Ur Specific [place] Urine Protein Urine Glucose (UA) Urine Ketones Urine Blood Urine Nitrate Urine Bilirubin Urine Urobilinogen Ur Leukocyte Esterase Urine WBC (Auto) Urine RBC (Auto) Ur Squamous Epith Cells Urine Bacteria Hyaline Casts Stool Occult Blood Blood Type Antibody Screen 11/08/18 11/08/18 11/08/18 13:39 13:39 13:39 WBC RBC Hgb Hct MCV MCH MCHC RDW Plt Count MPV Neut % (Auto) Lymph % (Auto) Brooks % (Auto) Eos % (Auto) Baso % (Auto) Neut # (Auto) Lymph # (Auto) Brooks # (Auto) Eos # (Auto) Baso # (Auto) PT 18.7 H INR 1.7 APTT 30 pO2 VBG pH VBG pCO2 VBG HCO3 VBG Total CO2 VBG O2 Sat (Calc) VBG Base Excess VBG Potassium Sodium 138 Chloride 109 H Glucose Lactate Crit Value Called To Crit Value Called By Crit Value Read Back Blood Gas Notified Time Potassium 2.6 L Carbon Dioxide 16 L Anion Gap 16 BUN 14 Creatinine 0.5 L Est GFR ( Amer) > 60 Est GFR (Non-Af Amer) > 60 POC Glucose (mg/dL) Random Glucose 307 H D Calcium 7.7 L Phosphorus 2.2 L Magnesium 1.6 Total Bilirubin 0.3 AST 12 L D ALT 11 L D Alkaline Phosphatase 74 Troponin I < 0.0120 NT-Pro-B Natriuret Pep 421 Total Protein 4.5 L Albumin 1.7 L D Globulin 2.8 Albumin/Globulin Ratio 0.6 L Venous Blood Potassium Urine Color Urine Clarity Urine pH Ur Specific [place] Urine Protein Urine Glucose (UA) Urine Ketones Urine Blood Urine Nitrate Urine Bilirubin Urine Urobilinogen Ur Leukocyte Esterase Urine WBC (Auto) Urine RBC (Auto) Ur Squamous Epith Cells Urine Bacteria Hyaline Casts Stool Occult Blood Blood Type AB POSITIVE Antibody Screen Negative 11/08/18 11/08/18 11/08/18 13:39 14:07 14:55 WBC RBC Hgb Hct MCV MCH MCHC RDW Plt Count MPV Neut % (Auto) Lymph % (Auto) Brooks % (Auto) Eos % (Auto) Baso % (Auto) Neut # (Auto) Lymph # (Auto) Brooks # (Auto) Eos # (Auto) Baso # (Auto) PT INR APTT pO2 73 H VBG pH 7.34 VBG pCO2 23 L VBG HCO3 15.9 VBG Total CO2 13.1 L VBG O2 Sat (Calc) 94.4 H VBG Base Excess -11.4 L VBG Potassium 2.0 L* Sodium 135.0 Chloride 104.0 Glucose 244 H Lactate 1.7 Crit Value Called To Dr. kumar Crit Value Called By Afsaneh perez rcp Crit Value Read Back Y Blood Gas Notified Time 1505 Potassium Carbon Dioxide Anion Gap BUN Creatinine Est GFR ( Amer) Est GFR (Non-Af Amer) POC Glucose (mg/dL) Random Glucose Calcium Phosphorus Magnesium Total Bilirubin AST ALT Alkaline Phosphatase Troponin I NT-Pro-B Natriuret Pep Total Protein Albumin Globulin Albumin/Globulin Ratio Venous Blood Potassium 2.0 L* Urine Color Yellow Urine Clarity Hazy Urine pH 5.0 Ur Specific [place] 1.022 Urine Protein 1+ H Urine Glucose (UA) 3+ H Urine Ketones 2+ H Urine Blood Negative Urine Nitrate Negative Urine Bilirubin Negative Urine Urobilinogen Normal Ur Leukocyte Esterase Neg Urine WBC (Auto) 8 H Urine RBC (Auto) 2 Ur Squamous Epith Cells < 1 Urine Bacteria Rare Hyaline Casts >20 H Stool Occult Blood Negative Blood Type Antibody Screen Assessment & Plan - Assessment and Plan (Free Text) Assessment: This is a 58 y o male with PMHx DM2, CHF (last EF 55%) who presents to the ED today s/p fall at home today. Found to have acute Hgb drop from 10 to 5 as compared to prior admission in Aug 2018, concern to r/o GI bleed, no active bleeding appreciated on exam. Also presented with sepsis: hypothermic, hypotension, leukocytosis and elevated lactate on admission. Also found to have hyperglycemia on admission. Admitted to ICU for further monitoring. GI (Dr. Aaron) and Cardiology (Dr. Dodge) consulted. Plan for possible L-sided thoracentesis for eval of L-sided pleural effusion found on CT chest, r/o malignancy as etiology. Also found to have suspicious mass at GE junction, r/o malignancy. NPO after midnight tomorrow for possible L-sided thoracentesis and EGD. Plan: Neuro: -AAOx3 -CT head on admission demonstrates no acute findings or active bleed -Cont to monitor -Neuro checks q4h Cardio: -Hypotensive on admission, likely 2/2 sepsis -C/w IVF -Hx CHF -Not on any current medications outpatient -EKG on admission demonstrates NSR at 99 bpm -Dr. Dodge consulted, recs appreciated -Will need to obtain outpatient records from Dr. Ma's office regarding recent stress test -Echo ordered Pulm: -Saturating well on room air -L pleural effusion -Pt presented with dyspnea on exertion -CXR on admission: Layering L pleural effusion and/or consolidation -CT chest/abd/pelvis: prior R pleural effusion cleared. Prior L pleural effusion has enlarged and interval loculated large L pleural effision now present, at least 18 cm cephalo caudal by 14 and 7 cm in axial dimensions. Smaller 1.5 cm hypodense nodular opacity borders loculated L pleural effusion, could represent smaller pleural fluid collection possibly loculated perifissural. -R/o malignancy as etiology -NPO after midnight for possible L-sided thoracentesis to be done by IR, will obtain cytology studies -Will cont to monitor GI: -Anemia/acute drop in Hgb -No active bleeding appreciated on exam -Hgb 5/16.8 on admission, acute drop from Hgb of 10 on prior admission to [facility] in Aug 2018 -Ordered 3 units PRBCs to be transfused, 1 FFP -F/u CBC after transfusion -CT chest/abd/pelvis: appearance of GE junction indeterminate, r/o hiatal hernia vs. possible concomitant underlying mass -GI consulted (Dr. Aaron), recs appreciated -CLD for this evening, then NPO after midnight for possible EGD if clinically stable -Iron studies, ferritin, retic ct ordered Endo: -Hyperglycemia/hx DM2 -Presented with FS 450 on ED presentation, trending down, does not need insulin drip at this time -Normal AG, bicarb 16 -S/p D50, insulin -Hold home med Metformin on admission due to elevated lactate -ISS -Fingersticks q6h -Hypoglycemic protocol as ordered ID: -Sepsis -R/o source of infection -Hypothermic on presentation, c/w Odette hugger -Hypotensive, improved with IVFs, cont to monitor -Leukocytosis -Elevated lactate -Blood, urine cxs pending -Sacral ulcer stage 1 c/d/i, less likely source of infection at this time -Vanco/zosyn -Tylenol prn for fevers -IVF at 100 cc/hr Renal: -BUN/Cr wnl on admission -Trend I's/O's -Hypokalemia -K 2.6 on admission -May be 2/2 to hyperglycemia -Repleted with KCl -Cont to trend Heme: -Mgmt for anemia/acute Hgb drop as noted above -Cont to trend H/H s/p transfusion -Am coags ordered -INR on admission 1.7 PPX: -Protonix bid, SCD -Pharmacologic DVT ppx held to r/o GI bleed Pt seen, examined with, and plan discussed with Dr. Knight, attending physician. Stevenson Garcia DO PGY-1, [employer] Pager #[phone]
[2018-11-08 15:16] LABS: BANDS 10 % (0-2); LYMPHOCYTE 3 % (20-40); MONOCYTE 13 % (0-10); NEUTROPHIL 74 % (50-75); TOTAL CELLS COUNTED 100
[2018-11-08 15:17] LABS: ANISOCYTOSIS SLIGHT; HYPOCHROMIC MODERATE; PLATELET ESTIMATE NORMAL (NORMAL)
[2018-11-08 15:18] LABS: TOXIC GRANULATION PRESENT
--- NOTE | 2018-11-08 15:37 | CT ---
Date of service: 11/08/2018 PROCEDURE: CT HEAD WITHOUT CONTRAST. HISTORY: R/O Bleed COMPARISON: None available. TECHNIQUE: Axial computed tomography images were obtained through the head/brain without intravenous contrast. Radiation dose: Total exam DLP = 1399.88 mGy-cm. This CT exam was performed using one or more of the following dose reduction techniques: Automated exposure control, adjustment of the mA and/or kV according to patient size, and/or use of iterative reconstruction technique. FINDINGS: HEMORRHAGE: No intracranial hemorrhage. BRAIN: No mass effect or edema. No atrophy or chronic microvascular ischemic changes. VENTRICLES: Unremarkable. No hydrocephalus. CALVARIUM: Unremarkable. PARANASAL SINUSES: A 1.3 cm left maxillary sinus retention cyst is present. MASTOID AIR CELLS: Unremarkable as visualized. No inflammatory changes. OTHER FINDINGS: None. IMPRESSION: No intracranial hemorrhage or mass effect. Left maxillary sinus retention cyst.
[2018-11-08] MEDS ORDERED: Pantoprazole 80 MG in Sodium Chloride 0.9% 100 ML IVPB SCH (16:00)
--- NOTE | 2018-11-08 16:01 | CT ---
Date of service: 11/08/2018 PROCEDURE: CT Chest, Abdomen and Pelvis with intravenous contrast HISTORY: r/o bleed COMPARISON: CT chest 08/18/2018 TECHNIQUE: IV dose administered: 100 mL of Visipaque 320 Radiation dose: Total exam DLP = 469.18 mGy-cm. This CT exam was performed using one or more of the following dose reduction techniques: Automated exposure control, adjustment of the mA and/or kV according to patient size, and/or use of iterative reconstruction technique. FINDINGS: CT CHEST WITH CONTRAST: LUNGS: The prior right pleural effusion with small compressive atelectasis at the right lung base has resolved. The prior left pleural effusion has enlarged and a an interval loculated large left pleural effusion is now present this measures at least 18 cm cephalo caudal by 14 and 7 cm in axial dimensions. A smaller 1.5 cm hypodense nodular opacity borders the loculated left pleural effusion on series 4, image 62 this could represent a smaller pleural fluid collection possibly loculated perifissural. Associated left basal compressive atelectasis present. MEDIASTINUM: Diffuse esophageal wall thickening noted near the GE junction this is marked soft tissue prominence although impart a large hiatal hernia is 1 consideration-concomitant mass here needs to be considered.. Prior mediastinal megan prominence is less conspicuous on this exam. No thoracic aneurysm seen. Prominent coronary artery calcifications present. LYMPH NODES: As above PLEURA: Interval large left loculated pleural effusion. Prior right pleural effusion has resolved. No pneumothorax seen. BONES: Degenerative changes. OTHER FINDINGS: None. CT ABDOMEN AND PELVIS: LIVER: Unremarkable. No gross lesion or ductal dilatation. GALLBLADDER AND BILE DUCTS: Multiple gallstones PANCREAS: Unremarkable. No gross lesion or ductal dilatation. SPLEEN: Unremarkable. ADRENALS: Unremarkable. No mass. KIDNEYS AND URETERS: Unremarkable. No hydronephrosis. No solid mass. VASCULATURE: No aortic atherosclerotic calcification or mural plaque present. Unremarkable. No aortic aneurysm. BOWEL: Stool retention. No obstruction. No gross mural thickening. APPENDIX: Normal appendix appendix not identified. No acute appendicitis changes seen. PERITONEUM: Ascites and anasarca noted. No free air. LYMPH NODES: Unremarkable. No enlarged lymph nodes. BLADDER: The prior bladder wall thickening is much less now than before. REPRODUCTIVE: The prior scrotal perineal gas interpreted as findings compatible with [place] gangrene is not seen as such on this exam. The full extent however is less now than apparently before. Clinical correlation is advised. Few prostatic calcifications noted BONES: The right femoral head bone mineralization is abnormal possibly of asymmetrical avascular necrosis here without rubina collapse is a consideration. Intrinsic background osteoarthrosis noted. OTHER FINDINGS: None. IMPRESSION: The prior amount of ascites and anasarca has improved since the prior exam.The prior scrotal perineal gas interpreted as findings compatible with [place] gangrene is not seen as such on this exam. The full extent however is less now than apparently before. Clinical correlation is advised. The prior right pleural effusion has cleared. There is interval loculated left pleural effusion as detailed above. The prior mediastinal noted densities have also decreased in size. The appearance of the GE junction is indeterminate here a hiatal hernia in part is 1 consideration-however concomitant underlying mass here is also a consideration. Follow-up is advised.
[2018-11-08] MEDS: Sodium Chloride 0.9% 1,000 ML IV SCH (16:10)
[2018-11-08 16:37] LABS: IRON < 10 ug/dL (49-181)
[2018-11-08 16:49] LABS: TOTAL IRON BINDING CAPACITY 148 ug/dL (250-450)
--- NOTE | 2018-11-08 16:58 | CP.PCM.CON ---
<Tejal Brothers - Last Filed: 11/08/18 18:30> History of Present Illness - History of Present Illness History of Present Illness: Gastroenterology Fellow/PGY6 Consult Note 58 year old male with PMH of Diabetes presenting with weakness and fall. Recent discharge 08/25/18 due to sepsis with gram positive bacteremia. GI consultation for anemia. Patient notes tripping over books while ambulating with inability to stand due to leg weakness leading to ER presentation. He notes chronic weakness and shortness of breath with exertion for at least three months. Admits to unintentional weight loss of at least 30 pounds over the last year. Notes constipation with small caliber stools every two to three days usually relieved with prune juice. Denies nausea, vomiting, hematemesis, abdominal pain, diarrhea, melena, hematochezia, sick contacts, recent travel, change of medications, or NSAIDs use. Completed ten day course of antibiotics after hospital discharge 08/2018. No prior EGD or colonoscopy. Family History- denies stomach cancer, colon cancer Social History- 1/2-1ppd x>30 years, 16-ounce beer daily x 1year, 3-4 liquor shots daily x 10 years, denies illicit drug use Surgical History- none Review of Systems - Review of Systems Review of Systems: 12-point review of systems negative except for as above Past Patient History - Past Medical History & Family History Past Medical History?: Yes - Past Social History Smoking Status: Light Smoker < 10 Cigarettes Daily - CARDIAC Hx Cardiac Disorders: No Other/Comment: Cardiomegaly. HYPOTENSION - PULMONARY Hx Pneumonia: Yes - NEUROLOGICAL Hx Neurological Disorder: No - HEENT Hx HEENT Problems: No - RENAL Hx Chronic Kidney Disease: No - ENDOCRINE/METABOLIC Hx Endocrine Disorders: Yes Hx Diabetes Mellitus Type 2: Yes - HEMATOLOGICAL/ONCOLOGICAL Hx Anemia: Yes - INTEGUMENTARY Hx Dermatological Problems: No - MUSCULOSKELETAL/RHEUMATOLOGICAL Hx Musculoskeletal Disorders: No Hx Falls: No - GASTROINTESTINAL Hx Gastrointestinal Disorders: Yes - GENITOURINARY/GYNECOLOGICAL Hx Genitourinary Disorders: No - PSYCHIATRIC Hx Substance Use: No - SURGICAL HISTORY Other/Comment: Hernia Removed / 1990 - ANESTHESIA Hx Anesthesia: Yes Hx Anesthesia Reactions: No Hx Malignant Hyperthermia: No Meds Allergies/Adverse Reactions: Allergies Allergy/AdvReac Type Severity Reaction Status Date / Time No Known Allergies Allergy Verified 11/08/18 12:52 - Medications Medications: Current Medications Dextrose (Dextrose 50% Inj) 0 ml IV STAT PRN; Protocol PRN Reason: Hypoglycemia Protocol Dextrose (Glutose 15) 0 gm PO ONCE PRN; Protocol PRN Reason: Hypoglycemia Protocol Glucagon (Glucagen Diagnostic Kit) 0 mg IM STAT PRN; Protocol PRN Reason: Hypoglycemia Protocol Dextrose (Dextrose 5% In Water 1000 Ml) 1,000 mls @ 0 mls/hr IV .Q0M PRN; Protocol PRN Reason: Hypoglycemia Protocol Pantoprazole Sodium 80 mg/ (Sodium Chloride) 100 mls @ 10 mls/hr IVPB .Q10H EDER Last Admin: 11/08/18 16:09 Dose: 10 mls/hr Sodium Chloride (Sodium Chloride 0.9%) 1,000 mls @ 100 mls/hr IV .Q10H EDER Last Admin: 11/08/18 16:10 Dose: Not Given Potassium Chloride (Potassium Chloride 10 Meq/100 Ml) 10 meq in 100 mls @ 100 mls/hr IVPB Q1H EDER Stop: 11/08/18 19:29 Last Admin: 11/08/18 16:18 Dose: 100 mls/hr Piperacillin Sod/Tazobactam Sod (Zosyn 3.375 Gm Iv Premix) 3.375 gm in 50 mls @ 100 mls/hr IVPB Q6H EDER; Protocol Vancomycin/Sodium Chloride (Vancomycin 1 Gm/Ns 200 Ml) 1 gm in 200 mls @ 133.333 mls/hr IVPB Q12H EDER; Protocol Stop: 11/14/18 02:31 Insulin Human Regular (Novolin R) 0 unit SC Q6 EDER; Protocol Physical Exam - Constitutional Appears: Non-toxic, No Acute Distress, Cachectic, Chronically Ill - Head Exam Head Exam: ATRAUMATIC, NORMOCEPHALIC - Eye Exam Eye Exam: EOMI, PERRL Pupil Exam: PERRL. absent: Miosis, Mydriatic - ENT Exam ENT Exam: Mucous Membranes Moist, Normal Oropharynx - Neck Exam Neck exam: Positive for: Full Rom, Normal Inspection - Respiratory Exam Respiratory Exam: Decreased Breath Sounds. absent: Rales, Rhonchi, Wheezes - Cardiovascular Exam Cardiovascular Exam: RRR, +S1, +S2. absent: Gallop, Rubs - GI/Abdominal Exam GI & Abdominal Exam: Hypoactive Bowel Sounds, Soft. absent: Distended, Firm, Guarding, Organomegaly, Rebound, Rigid, Tenderness - Rectal Exam Additional comments: patient notes had rectal performed already and noted he had brown stool; wishes to not perform again - Extremities Exam Extremities exam: Positive for: pedal edema - Neurological Exam Neurological exam: Alert - Psychiatric Exam Psychiatric exam: Normal Affect, Normal Mood - Skin Skin Exam: Dry, Intact, Normal Color, Warm Results - Vital Signs Recent Vital Signs: Last Vital Signs Temp 97 F L 11/08/18 16:40 Pulse 85 11/08/18 16:40 Resp 17 11/08/18 16:40 BP 82/50 L 11/08/18 16:40 Pulse Ox 95 11/08/18 14:55 - Labs Result Diagrams: 11/08/18 13:39 11/08/18 13:39 Labs: Laboratory Results - last 24 hr 11/08/18 11/08/18 11/08/18 13:31 13:35 13:39 WBC 17.2 H D RBC 2.08 L Hgb 5.0 L* D Hct 16.8 L MCV 80.7 D MCH 23.9 L MCHC 29.7 L RDW 17.8 H Plt Count 324 MPV 8.2 Neut % (Auto) 88.7 H Lymph % (Auto) 2.8 L [place] % (Auto) 8.1 Eos % (Auto) 0.1 Baso % (Auto) 0.3 Neut # (Auto) 15.2 H Lymph # (Auto) 0.5 L [place] # (Auto) 1.4 H Eos # (Auto) 0.0 Baso # (Auto) 0.0 Neutrophils % (Manual) 74 Band Neutrophils % 10 H Lymphocytes % (Manual) 3 L Monocytes % (Manual) 13 H Toxic Granulation Present Platelet Estimate Normal Hypochromasia (manual) Moderate Anisocytosis (manual) Slight Smear Path Review PT INR APTT pO2 21 L VBG pH 7.34 VBG pCO2 25 L VBG HCO3 14.9 VBG Total CO2 14.3 L VBG O2 Sat (Calc) 33.2 L VBG Base Excess -10.5 L VBG Potassium 2.3 L* Sodium 143.0 Chloride 111.0 H Glucose 298 H Lactate 3.5 H Crit Value Called To Power iyer Crit Value Called By Alicia collins human resources trainer Crit Value Read Back Y Blood Gas Notified Time 1337 Potassium Carbon Dioxide Anion Gap BUN Creatinine Est GFR ( Amer) Est GFR (Non-Af Amer) POC Glucose (mg/dL) 450 H* Random Glucose Calcium Phosphorus Magnesium Iron Total Bilirubin AST ALT Alkaline Phosphatase Ammonia Troponin I NT-Pro-B Natriuret Pep Total Protein Albumin Globulin Albumin/Globulin Ratio Venous Blood Potassium 2.3 L* Urine Color Urine Clarity Urine pH Ur Specific [place] Urine Protein Urine Glucose (UA) Urine Ketones Urine Blood Urine Nitrate Urine Bilirubin Urine Urobilinogen Ur Leukocyte Esterase Urine WBC (Auto) Urine RBC (Auto) Ur Squamous Epith Cells Urine Bacteria Hyaline Casts Stool Occult Blood Alcohol, Quantitative Blood Type Blood Type Confirm Antibody Screen 11/08/18 11/08/18 11/08/18 13:39 13:39 13:39 WBC RBC Hgb Hct MCV MCH MCHC RDW Plt Count MPV Neut % (Auto) Lymph % (Auto) [place] % (Auto) Eos % (Auto) Baso % (Auto) Neut # (Auto) Lymph # (Auto) [place] # (Auto) Eos # (Auto) Baso # (Auto) Neutrophils % (Manual) Band Neutrophils % Lymphocytes % (Manual) Monocytes % (Manual) Toxic Granulation Platelet Estimate Hypochromasia (manual) Anisocytosis (manual) Smear Path Review PT 18.7 H INR 1.7 APTT 30 pO2 VBG pH VBG pCO2 VBG HCO3 VBG Total CO2 VBG O2 Sat (Calc) VBG Base Excess VBG Potassium Sodium 138 Chloride 109 H Glucose Lactate Crit Value Called To Crit Value Called By Crit Value Read Back Blood Gas Notified Time Potassium 2.6 L Carbon Dioxide 16 L Anion Gap 16 BUN 14 Creatinine 0.5 L Est GFR ( Amer) > 60 Est GFR (Non-Af Amer) > 60 POC Glucose (mg/dL) Random Glucose 307 H D Calcium 7.7 L Phosphorus 2.2 L Magnesium 1.6 Iron Total Bilirubin 0.3 AST 12 L D ALT 11 L D Alkaline Phosphatase 74 Ammonia Troponin I < 0.0120 NT-Pro-B Natriuret Pep 421 Total Protein 4.5 L Albumin 1.7 L D Globulin 2.8 Albumin/Globulin Ratio 0.6 L Venous Blood Potassium Urine Color Urine Clarity Urine pH Ur Specific [place] Urine Protein Urine Glucose (UA) Urine Ketones Urine Blood Urine Nitrate Urine Bilirubin Urine Urobilinogen Ur Leukocyte Esterase Urine WBC (Auto) Urine RBC (Auto) Ur Squamous Epith Cells Urine Bacteria Hyaline Casts Stool Occult Blood Alcohol, Quantitative Blood Type AB POSITIVE Blood Type Confirm AB POSITIVE Antibody Screen Negative 11/08/18 11/08/18 11/08/18 13:39 14:07 14:55 WBC RBC Hgb Hct MCV MCH MCHC RDW Plt Count MPV Neut % (Auto) Lymph % (Auto) [place] % (Auto) Eos % (Auto) Baso % (Auto) Neut # (Auto) Lymph # (Auto) [place] # (Auto) Eos # (Auto) Baso # (Auto) Neutrophils % (Manual) Band Neutrophils % Lymphocytes % (Manual) Monocytes % (Manual) Toxic Granulation Platelet Estimate Hypochromasia (manual) Anisocytosis (manual) Smear Path Review PT INR APTT pO2 73 H VBG pH 7.34 VBG pCO2 23 L VBG HCO3 15.9 VBG Total CO2 13.1 L VBG O2 Sat (Calc) 94.4 H VBG Base Excess -11.4 L VBG Potassium 2.0 L* Sodium 135.0 Chloride 104.0 Glucose 244 H Lactate 1.7 Crit Value Called To Dr. kumar Crit Value Called By Afsaneh perez rcp Crit Value Read Back Y Blood Gas Notified Time 1505 Potassium Carbon Dioxide Anion Gap BUN Creatinine Est GFR ( Amer) Est GFR (Non-Af Amer) POC Glucose (mg/dL) Random Glucose Calcium Phosphorus Magnesium Iron Total Bilirubin AST ALT Alkaline Phosphatase Ammonia Troponin I NT-Pro-B Natriuret Pep Total Protein Albumin Globulin Albumin/Globulin Ratio Venous Blood Potassium 2.0 L* Urine Color Yellow Urine Clarity Hazy Urine pH 5.0 Ur Specific [place] 1.022 Urine Protein 1+ H Urine Glucose (UA) 3+ H Urine Ketones 2+ H Urine Blood Negative Urine Nitrate Negative Urine Bilirubin Negative Urine Urobilinogen Normal Ur Leukocyte Esterase Neg Urine WBC (Auto) 8 H Urine RBC (Auto) 2 Ur Squamous Epith Cells < 1 Urine Bacteria Rare Hyaline Casts >20 H Stool Occult Blood Negative Alcohol, Quantitative Blood Type Blood Type Confirm Antibody Screen 11/08/18 11/08/18 11/08/18 16:07 16:07 16:07 WBC RBC Hgb Hct MCV MCH MCHC RDW Plt Count MPV Neut % (Auto) Lymph % (Auto) [place] % (Auto) Eos % (Auto) Baso % (Auto) Neut # (Auto) Lymph # (Auto) [place] # (Auto) Eos # (Auto) Baso # (Auto) Neutrophils % (Manual) Band Neutrophils % Lymphocytes % (Manual) Monocytes % (Manual) Toxic Granulation Platelet Estimate Hypochromasia (manual) Anisocytosis (manual) Smear Path Review PT INR APTT pO2 VBG pH VBG pCO2 VBG HCO3 VBG Total CO2 VBG O2 Sat (Calc) VBG Base Excess VBG Potassium Sodium Chloride Glucose Lactate Crit Value Called To Crit Value Called By Crit Value Read Back Blood Gas Notified Time Potassium Carbon Dioxide Anion Gap BUN Creatinine Est GFR ( Amer) Est GFR (Non-Af Amer) POC Glucose (mg/dL) Random Glucose Calcium Phosphorus Magnesium Iron < 10 L Total Bilirubin AST ALT Alkaline Phosphatase Ammonia 29 Troponin I NT-Pro-B Natriuret Pep Total Protein Albumin Globulin Albumin/Globulin Ratio Venous Blood Potassium Urine Color Urine Clarity Urine pH Ur Specific [place] Urine Protein Urine Glucose (UA) Urine Ketones Urine Blood Urine Nitrate Urine Bilirubin Urine Urobilinogen Ur Leukocyte Esterase Urine WBC (Auto) Urine RBC (Auto) Ur Squamous Epith Cells Urine Bacteria Hyaline Casts Stool Occult Blood Alcohol, Quantitative < 10 Blood Type Blood Type Confirm Antibody Screen Assessment & Plan - Assessment and Plan (Free Text) Assessment: 58 year old male with PMH of Diabetes presenting with weakness and fall. Recent discharge 08/25/18 due to sepsis with gram positive bacteremia. GI consultation for symptomatic acute on chronic anemia in setting of weakness, fall, and unintentional weight loss. No prior EGD or colonoscopy. Plan: -no signs of overt GI bleed -provide volume resuscitation and blood transfusion support-ordered to receive 2 units of pRBCs -goal Hemoglobin 8, iron deficiency -low suspicion for acute variceal bleeding with cirrhosis on prior Ultrasound (no hepatic lesions) 08/2018 without hematemesis/melena, FOBT negative -endoscopic evaluation warranted to evaluate acute on chronic iron deficiency anemia and CT findings with suspicion for possible esophageal mass -medical optimization of sepsis, hypothermia, hypotension, large pleural effusion, and electrolyte derangements -continue PPI IV BID -clear liquid diet, NPO after midnight -will re-evaluate clinical status tomorrow for optimization to undergo anesthesia to proceed with endoscopic evaluation -will follow clinical course <Ramiro Aaron - Last Filed: 11/08/18 19:03> Meds - Medications Medications: Current Medications Acetaminophen (Tylenol 325mg Tab) 650 mg PO Q6 PRN PRN Reason: Fever >100.4 F Dextrose (Dextrose 50% Inj) 0 ml IV STAT PRN; Protocol PRN Reason: Hypoglycemia Protocol Dextrose (Glutose 15) 0 gm PO ONCE PRN; Protocol PRN Reason: Hypoglycemia Protocol Folic Acid (Folic Acid) 1 mg PO DAILY EDER Glucagon (Glucagen Diagnostic Kit) 0 mg IM STAT PRN; Protocol PRN Reason: Hypoglycemia Protocol Dextrose (Dextrose 5% In Water 1000 Ml) 1,000 mls @ 0 mls/hr IV .Q0M PRN; Protocol PRN Reason: Hypoglycemia Protocol Sodium Chloride (Sodium Chloride 0.9%) 1,000 mls @ 100 mls/hr IV .Q10H EDER Last Admin: 11/08/18 16:10 Dose: Not Given Potassium Chloride (Potassium Chloride 10 Meq/100 Ml) 10 meq in 100 mls @ 100 mls/hr IVPB Q1H EDER Stop: 11/08/18 19:29 Last Admin: 11/08/18 18:34 Dose: 100 mls/hr Piperacillin Sod/Tazobactam Sod (Zosyn 3.375 Gm Iv Premix) 3.375 gm in 50 mls @ 100 mls/hr IVPB Q6H EDER; Protocol Vancomycin/Sodium Chloride (Vancomycin 1 Gm/Ns 200 Ml) 1 gm in 200 mls @ 133.3 33 mls/hr IVPB Q12H EDER; Protocol Stop: 11/14/18 02:31 Insulin Human Regular (Novolin R) 0 unit SC Q6 EDER; Protocol Last Admin: 11/08/18 18:17 Dose: 3 u Multivitamins (Hexavitamin) 1 tab PO DAILY EDER Nicotine (Nicoderm Cq) 1 patch TD DAILY EDER Pantoprazole Sodium (Protonix Inj) 40 mg IVP Q12H EDER Thiamine HCl (Vitamin B1 Tab) 100 mg PO DAILY EDER Results - Vital Signs Recent Vital Signs: Last Vital Signs Temp 98.0 F 11/08/18 18:04 Pulse 94 H 11/08/18 18:04 Resp 18 11/08/18 18:04 BP 88/56 L 11/08/18 18:04 Pulse Ox 95 11/08/18 14:55 - Labs Result Diagrams: 11/08/18 13:39 11/08/18 13:39 Labs: Laboratory Results - last 24 hr 11/08/18 11/08/18 11/08/18 13:31 13:35 13:39 WBC 17.2 H D RBC 2.08 L Hgb 5.0 L* D Hct 16.8 L MCV 80.7 D MCH 23.9 L MCHC 29.7 L RDW 17.8 H Plt Count 324 MPV 8.2 Neut % (Auto) 88.7 H Lymph % (Auto) 2.8 L [place] % (Auto) 8.1 Eos % (Auto) 0.1 Baso % (Auto) 0.3 Neut # (Auto) 15.2 H Lymph # (Auto) 0.5 L [place] # (Auto) 1.4 H Eos # (Auto) 0.0 Baso # (Auto) 0.0 Neutrophils % (Manual) 74 Band Neutrophils % 10 H Lymphocytes % (Manual) 3 L Monocytes % (Manual) 13 H Toxic Granulation Present Platelet Estimate Normal Hypochromasia (manual) Moderate Anisocytosis (manual) Slight Smear Path Review Retic Count PT INR APTT pO2 21 L VBG pH 7.34 VBG pCO2 25 L VBG HCO3 14.9 VBG Total CO2 14.3 L VBG O2 Sat (Calc) 33.2 L VBG Base Excess -10.5 L VBG Potassium 2.3 L* Sodium 143.0 Chloride 111.0 H Glucose 298 H Lactate 3.5 H Crit Value Called To Power rn Crit Value Called By Alicia collins human resources trainer Crit Value Read Back Y Blood Gas Notified Time 1337 Potassium Carbon Dioxide Anion Gap BUN Creatinine Est GFR ( Amer) Est GFR (Non-Af Amer) POC Glucose (mg/dL) 450 H* Random Glucose Calcium Phosphorus Magnesium Iron TIBC % Saturation Transferrin Ferritin Total Bilirubin AST ALT Alkaline Phosphatase Ammonia Troponin I NT-Pro-B Natriuret Pep Total Protein Albumin Globulin Albumin/Globulin Ratio Vitamin B12 Folate Venous Blood Potassium 2.3 L* Urine Color Urine Clarity Urine pH Ur Specific [place] Urine Protein Urine Glucose (UA) Urine Ketones Urine Blood Urine Nitrate Urine Bilirubin Urine Urobilinogen Ur Leukocyte Esterase Urine WBC (Auto) Urine RBC (Auto) Ur Squamous Epith Cells Urine Bacteria Hyaline Casts Stool Occult Blood Alcohol, Quantitative B-Hydroxybutyrate Hepatitis A IgM Ab Hep Bs Antigen Hep B Core IgM Ab Hepatitis C Antibody Blood Type Blood Type Confirm Antibody Screen 11/08/18 11/08/18 11/08/18 13:39 13:39 13:39 WBC RBC Hgb Hct MCV MCH MCHC RDW Plt Count MPV Neut % (Auto) Lymph % (Auto) [place] % (Auto) Eos % (Auto) Baso % (Auto) Neut # (Auto) Lymph # (Auto) [place] # (Auto) Eos # (Auto) Baso # (Auto) Neutrophils % (Manual) Band Neutrophils % Lymphocytes % (Manual) Monocytes % (Manual) Toxic Granulation Platelet Estimate Hypochromasia (manual) Anisocytosis (manual) Smear Path Review Retic Count PT 18.7 H INR 1.7 APTT 30 pO2 VBG pH VBG pCO2 VBG HCO3 VBG Total CO2 VBG O2 Sat (Calc) VBG Base Excess VBG Potassium Sodium 138 Chloride 109 H Glucose Lactate Crit Value Called To Crit Value Called By Crit Value Read Back Blood Gas Notified Time Potassium 2.6 L Carbon Dioxide 16 L Anion Gap 16 BUN 14 Creatinine 0.5 L Est GFR ( Amer) > 60 Est GFR (Non-Af Amer) > 60 POC Glucose (mg/dL) Random Glucose 307 H D Calcium 7.7 L Phosphorus 2.2 L Magnesium 1.6 Iron TIBC % Saturation Transferrin Ferritin Total Bilirubin 0.3 AST 12 L D ALT 11 L D Alkaline Phosphatase 74 Ammonia Troponin I < 0.0120 NT-Pro-B Natriuret Pep 421 Total Protein 4.5 L Albumin 1.7 L D Globulin 2.8 Albumin/Globulin Ratio 0.6 L Vitamin B12 Folate Venous Blood Potassium Urine Color Urine Clarity Urine pH Ur Specific [place] Urine Protein Urine Glucose (UA) Urine Ketones Urine Blood Urine Nitrate Urine Bilirubin Urine Urobilinogen Ur Leukocyte Esterase Urine WBC (Auto) Urine RBC (Auto) Ur Squamous Epith Cells Urine Bacteria Hyaline Casts Stool Occult Blood Alcohol, Quantitative B-Hydroxybutyrate Hepatitis A IgM Ab Hep Bs Antigen Hep B Core IgM Ab Hepatitis C Antibody Blood Type AB POSITIVE Blood Type Confirm AB POSITIVE Antibody Screen Negative 11/08/18 11/08/18 11/08/18 13:39 14:07 14:55 WBC RBC Hgb Hct MCV MCH MCHC RDW Plt Count MPV Neut % (Auto) Lymph % (Auto) [place] % (Auto) Eos % (Auto) Baso % (Auto) Neut # (Auto) Lymph # (Auto) [place] # (Auto) Eos # (Auto) Baso # (Auto) Neutrophils % (Manual) Band Neutrophils % Lymphocytes % (Manual) Monocytes % (Manual) Toxic Granulation Platelet Estimate Hypochromasia (manual) Anisocytosis (manual) Smear Path Review Retic Count PT INR APTT pO2 73 H VBG pH 7.34 VBG pCO2 23 L VBG HCO3 15.9 VBG Total CO2 13.1 L VBG O2 Sat (Calc) 94.4 H VBG Base Excess -11.4 L VBG Potassium 2.0 L* Sodium 135.0 Chloride 104.0 Glucose 244 H Lactate 1.7 Crit Value Called To Dr. kumar Crit Value Called By Afsaneh perez rcp Crit Value Read Back Y Blood Gas Notified Time 1505 Potassium Carbon Dioxide Anion Gap BUN Creatinine Est GFR ( Amer) Est GFR (Non-Af Amer) POC Glucose (mg/dL) Random Glucose Calcium Phosphorus Magnesium Iron TIBC % Saturation Transferrin Ferritin Total Bilirubin AST ALT Alkaline Phosphatase Ammonia Troponin I NT-Pro-B Natriuret Pep Total Protein Albumin Globulin Albumin/Globulin Ratio Vitamin B12 Folate Venous Blood Potassium 2.0 L* Urine Color Yellow Urine Clarity Hazy Urine pH 5.0 Ur Specific [place] 1.022 Urine Protein 1+ H Urine Glucose (UA) 3+ H Urine Ketones 2+ H Urine Blood Negative Urine Nitrate Negative Urine Bilirubin Negative Urine Urobilinogen Normal Ur Leukocyte Esterase Neg Urine WBC (Auto) 8 H Urine RBC (Auto) 2 Ur Squamous Epith Cells < 1 Urine Bacteria Rare Hyaline Casts >20 H Stool Occult Blood Negative Alcohol, Quantitative B-Hydroxybutyrate Hepatitis A IgM Ab Hep Bs Antigen Hep B Core IgM Ab Hepatitis C Antibody Blood Type Blood Type Confirm Antibody Screen 11/08/18 11/08/18 11/08/18 16:07 16:07 16:07 WBC RBC Hgb Hct MCV MCH MCHC RDW Plt Count MPV Neut % (Auto) Lymph % (Auto) [place] % (Auto) Eos % (Auto) Baso % (Auto) Neut # (Auto) Lymph # (Auto) [place] # (Auto) Eos # (Auto) Baso # (Auto) Neutrophils % (Manual) Band Neutrophils % Lymphocytes % (Manual) Monocytes % (Manual) Toxic Granulation Platelet Estimate Hypochromasia (manual) Anisocytosis (manual) Smear Path Review Retic Count PT INR APTT pO2 VBG pH VBG pCO2 VBG HCO3 VBG Total CO2 VBG O2 Sat (Calc) VBG Base Excess VBG Potassium Sodium Chloride Glucose Lactate Crit Value Called To Crit Value Called By Crit Value Read Back Blood Gas Notified Time Potassium Carbon Dioxide Anion Gap BUN Creatinine Est GFR ( Amer) Est GFR (Non-Af Amer) POC Glucose (mg/dL) Random Glucose Calcium Phosphorus Magnesium Iron < 10 L TIBC 148 L % Saturation Transferrin < 80.00 L Ferritin 39.5 Total Bilirubin AST ALT Alkaline Phosphatase Ammonia Troponin I NT-Pro-B Natriuret Pep Total Protein Albumin Globulin Albumin/Globulin Ratio Vitamin B12 967 H Folate 10.5 Venous Blood Potassium Urine Color Urine Clarity Urine pH Ur Specific [place] Urine Protein Urine Glucose (UA) Urine Ketones Urine Blood Urine Nitrate Urine Bilirubin Urine Urobilinogen Ur Leukocyte Esterase Urine WBC (Auto) Urine RBC (Auto) Ur Squamous Epith Cells Urine Bacteria Hyaline Casts Stool Occult Blood Alcohol, Quantitative < 10 B-Hydroxybutyrate 4.94 H Hepatitis A IgM Ab Hep Bs Antigen Hep B Core IgM Ab Hepatitis C Antibody Blood Type Blood Type Confirm Antibody Screen 11/08/18 11/08/18 11/08/18 16:07 16:07 16:10 WBC RBC Hgb Hct MCV MCH MCHC RDW Plt Count MPV Neut % (Auto) Lymph % (Auto) [place] % (Auto) Eos % (Auto) Baso % (Auto) Neut # (Auto) Lymph # (Auto) [place] # (Auto) Eos # (Auto) Baso # (Auto) Neutrophils % (Manual) Band Neutrophils % Lymphocytes % (Manual) Monocytes % (Manual) Toxic Granulation Platelet Estimate Hypochromasia (manual) Anisocytosis (manual) Smear Path Review Retic Count PT INR APTT pO2 VBG pH VBG pCO2 VBG HCO3 VBG Total CO2 VBG O2 Sat (Calc) VBG Base Excess VBG Potassium Sodium Chloride Glucose Lactate Crit Value Called To Crit Value Called By Crit Value Read Back Blood Gas Notified Time Potassium Carbon Dioxide Anion Gap BUN Creatinine Est GFR ( Amer) Est GFR (Non-Af Amer) POC Glucose (mg/dL) 300 H Random Glucose Calcium Phosphorus Magnesium Iron TIBC % Saturation Transferrin Ferritin Total Bilirubin AST ALT Alkaline Phosphatase Ammonia 29 Troponin I NT-Pro-B Natriuret Pep Total Protein Albumin Globulin Albumin/Globulin Ratio Vitamin B12 Folate Venous Blood Potassium Urine Color Urine Clarity Urine pH Ur Specific [place] Urine Protein Urine Glucose (UA) Urine Ketones Urine Blood Urine Nitrate Urine Bilirubin Urine Urobilinogen Ur Leukocyte Esterase Urine WBC (Auto) Urine RBC (Auto) Ur Squamous Epith Cells Urine Bacteria Hyaline Casts Stool Occult Blood Alcohol, Quantitative B-Hydroxybutyrate Hepatitis A IgM Ab Negative Hep Bs Antigen Negative Hep B Core IgM Ab Negative Hepatitis C Antibody Negative Blood Type Blood Type Confirm Antibody Screen 11/08/18 11/08/18 18:09 18:21 WBC RBC Hgb Hct MCV MCH MCHC RDW Plt Count MPV Neut % (Auto) Lymph % (Auto) [place] % (Auto) Eos % (Auto) Baso % (Auto) Neut # (Auto) Lymph # (Auto) [place] # (Auto) Eos # (Auto) Baso # (Auto) Neutrophils % (Manual) Band Neutrophils % Lymphocytes % (Manual) Monocytes % (Manual) Toxic Granulation Platelet Estimate Hypochromasia (manual) Anisocytosis (manual) Smear Path Review Retic Count 2.2 H PT INR APTT pO2 VBG pH VBG pCO2 VBG HCO3 VBG Total CO2 VBG O2 Sat (Calc) VBG Base Excess VBG Potassium Sodium Chloride Glucose Lactate Crit Value Called To Crit Value Called By Crit Value Read Back Blood Gas Notified Time Potassium Carbon Dioxide Anion Gap BUN Creatinine Est GFR ( Amer) Est GFR (Non-Af Amer) POC Glucose (mg/dL) 213 H Random Glucose Calcium Phosphorus Magnesium Iron TIBC % Saturation Transferrin Ferritin Total Bilirubin AST ALT Alkaline Phosphatase Ammonia Troponin I NT-Pro-B Natriuret Pep Total Protein Albumin Globulin Albumin/Globulin Ratio Vitamin B12 Folate Venous Blood Potassium Urine Color Urine Clarity Urine pH Ur Specific [place] Urine Protein Urine Glucose (UA) Urine Ketones Urine Blood Urine Nitrate Urine Bilirubin Urine Urobilinogen Ur Leukocyte Esterase Urine WBC (Auto) Urine RBC (Auto) Ur Squamous Epith Cells Urine Bacteria Hyaline Casts Stool Occult Blood Alcohol, Quantitative B-Hydroxybutyrate Hepatitis A IgM Ab Hep Bs Antigen Hep B Core IgM Ab Hepatitis C Antibody Blood Type Blood Type Confirm Antibody Screen Attending/Attestation - Attestation I have personally seen and examined this patient.: Yes I have fully participated in the care of the patient.: Yes I have reviewed all pertinent clinical information: Yes Notes (Text): 11/08/18 18:57 I have seen and examined patient with GI fellow. Agree with above documentation with the following additions. In brief, this is a 58 year old male with history of DM who presents to hospital with complaint of progressive weakness and fall. He reports profound weakness and lethargy over the past 4 days resulting in the inability to walk and came to hospital after slipping on a stack of magazines. He was recently admitted to hospital 2 months ago for treatment of sepsis and bacteremia and notes progressive clinical deterioration over the past 3 months. He denies nausea, vomiting, fever/chills, rectal bleeding, or change in bowel habits. He does note a non-intentional weight loss of nearly 30 pounds over the past one year. He does admit to daily ETOH use for the past several years. No prior endoscopic evaluation. 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 Will reassess tomorrow for potential procedure, NPO after midnight.
[2018-11-08 17:14] LABS: HEPATITIS B SURFACE AG Negative (NEGATIVE)
[2018-11-08 17:20] LABS: HEPATITIS A IGM NEGATIVE (NEGATIVE); HEPATITIS B CORE AB NEGATIVE (NEGATIVE)
[2018-11-08 17:23] LABS: FERRITIN 39.5 ng/mL
[2018-11-08 17:31] LABS: HEPATITIS C ANTIBODY NEGATIVE (NEGATIVE)
[2018-11-08 17:54] LABS: FOLATE 10.5 ng/mL
[2018-11-08] MEDS: (Novolin R) Insulin Human Regular 100 units/ml vial SC SCH (18:17)
--- NOTE | 2018-11-08 18:35 | PCM.SEPTIC ---
Sepsis Progress Note - Reassessment Type Date of Evaluation: 11/08/18 Time of Evaluation: 17:00 Reassessment Type: Non-invasive reassessment - Non Invasive Reassessment Were the most recent vital sign reviewed: Yes Vital Sign (Latest): Temp Pulse Resp BP Pulse Ox 98.0 F 94 H 18 88/56 L 95 11/08/18 18:04 11/08/18 18:04 11/08/18 18:04 11/08/18 18:04 11/08/18 14:55 Cardiovascular: Yes: Regular Rate, Rhythm Respiratory: Yes: Normal Breath Sounds. No: Accessory Muscle Use, Rales, Rhonchi, Wheezing, Respiratory Distress Capillary Refill: Normal (Less than 2 sec) Skin: Dry, Pale Was a passive leg raise performed or was a fluid challenge performed within 6 hrs of the initial fluid bolus: Yes Fluid Challenge performed: Yes
[2018-11-08] MEDS: Piperacill/Tazo 3.375gm in Dex 3.375 GM/50 ML BAG IVPB SCH (20:24)
[2018-11-09] MEDS: (Novolin R) Insulin Human Regular 100 units/ml vial SC SCH ×5 (00:04→22:56)
[2018-11-09] MEDS: Piperacill/Tazo 3.375gm in Dex 3.375 GM/50 ML BAG IVPB SCH ×4 (01:39→19:39)
[2018-11-09] MEDS: Vancomycin 1 gm/NS 200 ml 1 GM/200 ML BAG IVPB SCH ×2 (01:50→14:25)
[2018-11-09] MEDS: Sodium Chloride 0.9% 1,000 ML IV SCH ×4 (01:50→23:04)
[2018-11-09 06:11] LABS: BASO % 0.3 % (0.0-2.0); EOS # 0.1 K/uL (0.0-0.7); EOS % 0.7 % (0.0-4.0); HEMOGLOBIN 8.6 g/dL (12.0-18.0); LYMPH # 0.9 K/uL (1.0-4.3); LYMPH % 5.8 % (20.0-40.0); MEAN CELL VOLUME 81.8 fL (80.0-94.0); MEAN CORPUSCULAR HEMOGLOBIN 26.1 pg (27.0-31.0); MEAN CORPUSCULAR HGB CONC 31.9 g/dL (33.0-37.0); MEAN PLATELET VOLUME 8.2 fL (7.2-11.7); MONO # 1.4 K/uL (0.0-0.8); MONO % 9.1 % (0.0-10.0); NEUT # 12.5 K/uL (1.8-7.0); NEUT % 84.1 % (50.0-75.0); NRBC % 0.1 % (0.0-2.0); PLATELET COUNT 252 K/uL (130-400); RBC 3.31 Mil/uL (4.40-5.90); WHITE BLOOD COUNT 14.9 K/uL (4.8-10.8)
[2018-11-09 06:15] LABS: INR 1.2; PROTHROMBIN TIME 13.6 SECONDS (9.7-12.2)
[2018-11-09 06:21] LABS: ALB/GLOB RATIO 0.7 (1.0-2.1); ALBUMIN 2.2 g/dL (3.5-5.0); ALT/SGPT 15 U/L (21-72); AST/SGOT 13 U/L (17-59); BLOOD UREA NITROGEN 17 mg/dL (9-20); CALCIUM 10.3 mg/dl (8.6-10.4); GFR NON-AFRICAN AMERICAN > 60; HDL CHOLESTEROL 16 mg/dL (30-70)
[2018-11-09 06:31] LABS: LDL CHOLESTEROL 36 mg/dL (0-129)
[2018-11-09 08:06] LABS: ANISOCYTOSIS SLIGHT; BANDS 18 % (0-2); EOSINOPHIL 1 % (0-4); LYMPHOCYTE 10 % (20-40); MONOCYTE 9 % (0-10); NEUTROPHIL 62 % (50-75); PLATELET ESTIMATE NORMAL (NORMAL); TOTAL CELLS COUNTED 100
[2018-11-09 08:07] LABS: HYPOCHROMIC SLIGHT; OVALOCYTES SLIGHT; TOXIC GRANULATION PRESENT
--- NOTE | 2018-11-09 08:14 | CP.PCM.CON ---
History of Present Illness - History of Present Illness History of Present Illness: Thoracic Surgery Dr. Patterson 58 y/o M w/ PMHx DM2, EtOH/tobacco dependence presented to the ED 11/08 c/o weakness. Pt reportedly tripped over books and was unable to get back up 2/2 weakness. Pt reported recent 30lbs weight loss as well as SOB w/ exertion. In ED, pt found to be hypotensive w/ acute anemia and elevated WBC. Pt received 2pRBC and 1FFP. Pt underwent CT C/A/P which found large L pleural effusion, L lung nodule, and possible GEJ mass for which CT Surgery is consulted. Currently, pt denies CP, N/V, abd pain, D/C. Pt is NPO for possible thorocentesis +/-EGD today. PMHx: see above Meds: reviewed in chart NKDA PSHx: LIHR SHx: 20-30 pack years; 10 shots/day x20yrs; denies drug use FHx: noncontributory Review of Systems - Review of Systems All systems: reviewed and no additional remarkable complaints except (see HPI) Past Patient History - Past Medical History & Family History Past Medical History?: Yes - Past Social History Smoking Status: Light Smoker < 10 Cigarettes Daily - CARDIAC Hx Cardiac Disorders: No Other/Comment: Cardiomegaly. HYPOTENSION - PULMONARY Hx Pneumonia: Yes - NEUROLOGICAL Hx Neurological Disorder: No - HEENT Hx HEENT Problems: No - RENAL Hx Chronic Kidney Disease: No - ENDOCRINE/METABOLIC Hx Endocrine Disorders: Yes Hx Diabetes Mellitus Type 2: Yes - HEMATOLOGICAL/ONCOLOGICAL Hx Anemia: Yes - INTEGUMENTARY Hx Dermatological Problems: No - MUSCULOSKELETAL/RHEUMATOLOGICAL Hx Musculoskeletal Disorders: No Hx Falls: No - GASTROINTESTINAL Hx Gastrointestinal Disorders: Yes - GENITOURINARY/GYNECOLOGICAL Hx Genitourinary Disorders: No - PSYCHIATRIC Hx Substance Use: No - SURGICAL HISTORY Other/Comment: Hernia Removed / 1990 - ANESTHESIA Hx Anesthesia: Yes Hx Anesthesia Reactions: No Hx Malignant Hyperthermia: No Meds Allergies/Adverse Reactions: Allergies Allergy/AdvReac Type Severity Reaction Status Date / Time No Known Allergies Allergy Verified 11/08/18 12:52 - Medications Medications: Current Medications Acetaminophen (Tylenol 325mg Tab) 650 mg PO Q6 PRN PRN Reason: Fever >100.4 F Dextrose (Dextrose 50% Inj) 0 ml IV STAT PRN; Protocol PRN Reason: Hypoglycemia Protocol Dextrose (Glutose 15) 0 gm PO ONCE PRN; Protocol PRN Reason: Hypoglycemia Protocol Folic Acid (Folic Acid) 1 mg PO DAILY [facility] Glucagon (Glucagen Diagnostic Kit) 0 mg IM STAT PRN; Protocol PRN Reason: Hypoglycemia Protocol Dextrose (Dextrose 5% In Water 1000 Ml) 1,000 mls @ 0 mls/hr IV .Q0M PRN; Protocol PRN Reason: Hypoglycemia Protocol Sodium Chloride (Sodium Chloride 0.9%) 1,000 mls @ 100 mls/hr IV .Q10H [facility] Last Admin: 11/09/18 01:50 Dose: 100 mls/hr Piperacillin Sod/Tazobactam Sod (Zosyn 3.375 Gm Iv Premix) 3.375 gm in 50 mls @ 100 mls/hr IVPB Q6H [facility]; Protocol Last Admin: 11/09/18 07:35 Dose: 100 mls/hr Vancomycin/Sodium Chloride (Vancomycin 1 Gm/Ns 200 Ml) 1 gm in 200 mls @ 133.333 mls/hr IVPB Q12H [facility]; Protocol Stop: 11/14/18 02:31 Last Admin: 11/09/18 01:50 Dose: 133.333 mls/hr Insulin Human Regular (Novolin R) 0 unit SC Q6 [facility]; Protocol Last Admin: 11/09/18 06:14 Dose: Not Given Multivitamins (Hexavitamin) 1 tab PO DAILY [facility] Nicotine (Nicoderm Cq) 1 patch TD DAILY [facility] Pantoprazole Sodium (Protonix Inj) 40 mg IVP Q12H [facility] Thiamine HCl (Vitamin B1 Tab) 100 mg PO DAILY [facility] Physical Exam - Constitutional Appears: Non-toxic, No Acute Distress, Chronically Ill - Head Exam Head Exam: NORMAL INSPECTION - Eye Exam Eye Exam: Normal appearance - ENT Exam ENT Exam: Mucous Membranes Moist - Respiratory Exam Respiratory Exam: NORMAL BREATHING PATTERN. absent: Accessory Muscle Use, Respiratory Distress - Cardiovascular Exam Cardiovascular Exam: REGULAR RHYTHM. absent: Bradycardia, Tachycardia - GI/Abdominal Exam GI & Abdominal Exam: Soft. absent: Distended, Firm, Guarding, Tenderness - Extremities Exam Extremities exam: Positive for: normal inspection - Neurological Exam Neurological exam: Alert, Oriented x3 - Psychiatric Exam Psychiatric exam: Normal Affect, Normal Mood - Skin Skin Exam: Dry, Intact, Normal Color, Warm Results - Vital Signs Recent Vital Signs: Last Vital Signs Temp 98.5 F 11/09/18 04:00 Pulse 79 11/09/18 06:00 Resp 26 H 11/09/18 06:00 BP 100/61 11/09/18 06:02 Pulse Ox 96 11/09/18 06:00 - Labs Result Diagrams: 11/09/18 06:02 11/09/18 05:45 Labs: Laboratory Results - last 24 hr 11/08/18 11/08/18 11/08/18 13:31 13:35 13:39 WBC 17.2 H D RBC 2.08 L Hgb 5.0 L* D Hct 16.8 L MCV 80.7 D MCH 23.9 L MCHC 29.7 L RDW 17.8 H Plt Count 324 MPV 8.2 Neut % (Auto) 88.7 H Lymph % (Auto) 2.8 L Anderson % (Auto) 8.1 Eos % (Auto) 0.1 Baso % (Auto) 0.3 Neut # (Auto) 15.2 H Lymph # (Auto) 0.5 L Anderson # (Auto) 1.4 H Eos # (Auto) 0.0 Baso # (Auto) 0.0 Neutrophils % (Manual) 74 Band Neutrophils % 10 H Lymphocytes % (Manual) 3 L Monocytes % (Manual) 13 H Eosinophils % (Manual) Toxic Granulation Present Platelet Estimate Normal Hypochromasia (manual) Moderate Anisocytosis (manual) Slight Ovalocytes Smear Path Review Retic Count PT INR APTT pO2 21 L VBG pH 7.34 VBG pCO2 25 L VBG HCO3 14.9 VBG Total CO2 14.3 L VBG O2 Sat (Calc) 33.2 L VBG Base Excess -10.5 L VBG Potassium 2.3 L* Sodium 143.0 Chloride 111.0 H Glucose 298 H Lactate 3.5 H Crit Value Called To Power iyer Crit Value Called By Alicia collins tool profiling machine set up operator Crit Value Read Back Y Blood Gas Notified Time 1337 Potassium Carbon Dioxide Anion Gap BUN Creatinine Est GFR ( Amer) Est GFR (Non-Af Amer) POC Glucose (mg/dL) 450 H* Random Glucose Calcium Phosphorus Magnesium Iron TIBC % Saturation Transferrin Ferritin Total Bilirubin AST ALT Alkaline Phosphatase Ammonia Troponin I NT-Pro-B Natriuret Pep Total Protein Albumin Globulin Albumin/Globulin Ratio Triglycerides Cholesterol LDL Cholesterol Direct HDL Cholesterol Vitamin B12 Folate Venous Blood Potassium 2.3 L* Urine Color Urine Clarity Urine pH Ur Specific [place] Urine Protein Urine Glucose (UA) Urine Ketones Urine Blood Urine Nitrate Urine Bilirubin Urine Urobilinogen Ur Leukocyte Esterase Urine WBC (Auto) Urine RBC (Auto) Ur Squamous Epith Cells Urine Bacteria Hyaline Casts Stool Occult Blood Alcohol, Quantitative B-Hydroxybutyrate Hepatitis A IgM Ab Hep Bs Antigen Hep B Core IgM Ab Hepatitis C Antibody Blood Type Blood Type Confirm Antibody Screen 11/08/18 11/08/18 11/08/18 13:39 13:39 13:39 WBC RBC Hgb Hct MCV MCH MCHC RDW Plt Count MPV Neut % (Auto) Lymph % (Auto) Anderson % (Auto) Eos % (Auto) Baso % (Auto) Neut # (Auto) Lymph # (Auto) Anderson # (Auto) Eos # (Auto) Baso # (Auto) Neutrophils % (Manual) Band Neutrophils % Lymphocytes % (Manual) Monocytes % (Manual) Eosinophils % (Manual) Toxic Granulation Platelet Estimate Hypochromasia (manual) Anisocytosis (manual) Ovalocytes Smear Path Review Retic Count PT 18.7 H INR 1.7 APTT 30 pO2 VBG pH VBG pCO2 VBG HCO3 VBG Total CO2 VBG O2 Sat (Calc) VBG Base Excess VBG Potassium Sodium 138 Chloride 109 H Glucose Lactate Crit Value Called To Crit Value Called By Crit Value Read Back Blood Gas Notified Time Potassium 2.6 L Carbon Dioxide 16 L Anion Gap 16 BUN 14 Creatinine 0.5 L Est GFR ( Amer) > 60 Est GFR (Non-Af Amer) > 60 POC Glucose (mg/dL) Random Glucose 307 H D Calcium 7.7 L Phosphorus 2.2 L Magnesium 1.6 Iron TIBC % Saturation Transferrin Ferritin Total Bilirubin 0.3 AST 12 L D ALT 11 L D Alkaline Phosphatase 74 Ammonia Troponin I < 0.0120 NT-Pro-B Natriuret Pep 421 Total Protein 4.5 L Albumin 1.7 L D Globulin 2.8 Albumin/Globulin Ratio 0.6 L Triglycerides Cholesterol LDL Cholesterol Direct HDL Cholesterol Vitamin B12 Folate Venous Blood Potassium Urine Color Urine Clarity Urine pH Ur Specific [place] Urine Protein Urine Glucose (UA) Urine Ketones Urine Blood Urine Nitrate Urine Bilirubin Urine Urobilinogen Ur Leukocyte Esterase Urine WBC (Auto) Urine RBC (Auto) Ur Squamous Epith Cells Urine Bacteria Hyaline Casts Stool Occult Blood Alcohol, Quantitative B-Hydroxybutyrate Hepatitis A IgM Ab Hep Bs Antigen Hep B Core IgM Ab Hepatitis C Antibody Blood Type AB POSITIVE Blood Type Confirm AB POSITIVE Antibody Screen Negative 11/08/18 11/08/18 11/08/18 13:39 14:07 14:55 WBC RBC Hgb Hct MCV MCH MCHC RDW Plt Count MPV Neut % (Auto) Lymph % (Auto) Anderson % (Auto) Eos % (Auto) Baso % (Auto) Neut # (Auto) Lymph # (Auto) Anderson # (Auto) Eos # (Auto) Baso # (Auto) Neutrophils % (Manual) Band Neutrophils % Lymphocytes % (Manual) Monocytes % (Manual) Eosinophils % (Manual) Toxic Granulation Platelet Estimate Hypochromasia (manual) Anisocytosis (manual) Ovalocytes Smear Path Review Retic Count PT INR APTT pO2 73 H VBG pH 7.34 VBG pCO2 23 L VBG HCO3 15.9 VBG Total CO2 13.1 L VBG O2 Sat (Calc) 94.4 H VBG Base Excess -11.4 L VBG Potassium 2.0 L* Sodium 135.0 Chloride 104.0 Glucose 244 H Lactate 1.7 Crit Value Called To Dr. kumar Crit Value Called By Afsaneh perez rcp Crit Value Read Back Y Blood Gas Notified Time 1505 Potassium Carbon Dioxide Anion Gap BUN Creatinine Est GFR ( Amer) Est GFR (Non-Af Amer) POC Glucose (mg/dL) Random Glucose Calcium Phosphorus Magnesium Iron TIBC % Saturation Transferrin Ferritin Total Bilirubin AST ALT Alkaline Phosphatase Ammonia Troponin I NT-Pro-B Natriuret Pep Total Protein Albumin Globulin Albumin/Globulin Ratio Triglycerides Cholesterol LDL Cholesterol Direct HDL Cholesterol Vitamin B12 Folate Venous Blood Potassium 2.0 L* Urine Color Yellow Urine Clarity Hazy Urine pH 5.0 Ur Specific [place] 1.022 Urine Protein 1+ H Urine Glucose (UA) 3+ H Urine Ketones 2+ H Urine Blood Negative Urine Nitrate Negative Urine Bilirubin Negative Urine Urobilinogen Normal Ur Leukocyte Esterase Neg Urine WBC (Auto) 8 H Urine RBC (Auto) 2 Ur Squamous Epith Cells < 1 Urine Bacteria Rare Hyaline Casts >20 H Stool Occult Blood Negative Alcohol, Quantitative B-Hydroxybutyrate Hepatitis A IgM Ab Hep Bs Antigen Hep B Core IgM Ab Hepatitis C Antibody Blood Type Blood Type Confirm Antibody Screen 11/08/18 11/08/18 11/08/18 16:07 16:07 16:07 WBC RBC Hgb Hct MCV MCH MCHC RDW Plt Count MPV Neut % (Auto) Lymph % (Auto) Anderson % (Auto) Eos % (Auto) Baso % (Auto) Neut # (Auto) Lymph # (Auto) Anderson # (Auto) Eos # (Auto) Baso # (Auto) Neutrophils % (Manual) Band Neutrophils % Lymphocytes % (Manual) Monocytes % (Manual) Eosinophils % (Manual) Toxic Granulation Platelet Estimate Hypochromasia (manual) Anisocytosis (manual) Ovalocytes Smear Path Review Retic Count PT INR APTT pO2 VBG pH VBG pCO2 VBG HCO3 VBG Total CO2 VBG O2 Sat (Calc) VBG Base Excess VBG Potassium Sodium Chloride Glucose Lactate Crit Value Called To Crit Value Called By Crit Value Read Back Blood Gas Notified Time Potassium Carbon Dioxide Anion Gap BUN Creatinine Est GFR ( Amer) Est GFR (Non-Af Amer) POC Glucose (mg/dL) Random Glucose Calcium Phosphorus Magnesium Iron < 10 L TIBC 148 L % Saturation Transferrin < 80.00 L Ferritin 39.5 Total Bilirubin AST ALT Alkaline Phosphatase Ammonia Troponin I NT-Pro-B Natriuret Pep Total Protein Albumin Globulin Albumin/Globulin Ratio Triglycerides Cholesterol LDL Cholesterol Direct HDL Cholesterol Vitamin B12 967 H Folate 10.5 Venous Blood Potassium Urine Color Urine Clarity Urine pH Ur Specific [place] Urine Protein Urine Glucose (UA) Urine Ketones Urine Blood Urine Nitrate Urine Bilirubin Urine Urobilinogen Ur Leukocyte Esterase Urine WBC (Auto) Urine RBC (Auto) Ur Squamous Epith Cells Urine Bacteria Hyaline Casts Stool Occult Blood Alcohol, Quantitative < 10 B-Hydroxybutyrate 4.94 H Hepatitis A IgM Ab Hep Bs Antigen Hep B Core IgM Ab Hepatitis C Antibody Blood Type Blood Type Confirm Antibody Screen 11/08/18 11/08/18 11/08/18 16:07 16:07 16:10 WBC RBC Hgb Hct MCV MCH MCHC RDW Plt Count MPV Neut % (Auto) Lymph % (Auto) Anderson % (Auto) Eos % (Auto) Baso % (Auto) Neut # (Auto) Lymph # (Auto) Anderson # (Auto) Eos # (Auto) Baso # (Auto) Neutrophils % (Manual) Band Neutrophils % Lymphocytes % (Manual) Monocytes % (Manual) Eosinophils % (Manual) Toxic Granulation Platelet Estimate Hypochromasia (manual) Anisocytosis (manual) Ovalocytes Smear Path Review Retic Count PT INR APTT pO2 VBG pH VBG pCO2 VBG HCO3 VBG Total CO2 VBG O2 Sat (Calc) VBG Base Excess VBG Potassium Sodium Chloride Glucose Lactate Crit Value Called To Crit Value Called By Crit Value Read Back Blood Gas Notified Time Potassium Carbon Dioxide Anion Gap BUN Creatinine Est GFR ( Amer) Est GFR (Non-Af Amer) POC Glucose (mg/dL) 300 H Random Glucose Calcium Phosphorus Magnesium Iron TIBC % Saturation Transferrin Ferritin Total Bilirubin AST ALT Alkaline Phosphatase Ammonia 29 Troponin I NT-Pro-B Natriuret Pep Total Protein Albumin Globulin Albumin/Globulin Ratio Triglycerides Cholesterol LDL Cholesterol Direct HDL Cholesterol Vitamin B12 Folate Venous Blood Potassium Urine Color Urine Clarity Urine pH Ur Specific [place] Urine Protein Urine Glucose (UA) Urine Ketones Urine Blood Urine Nitrate Urine Bilirubin Urine Urobilinogen Ur Leukocyte Esterase Urine WBC (Auto) Urine RBC (Auto) Ur Squamous Epith Cells Urine Bacteria Hyaline Casts Stool Occult Blood Alcohol, Quantitative B-Hydroxybutyrate Hepatitis A IgM Ab Negative Hep Bs Antigen Negative Hep B Core IgM Ab Negative Hepatitis C Antibody Negative Blood Type Blood Type Confirm Antibody Screen 11/08/18 11/08/18 11/08/18 18:09 18:21 21:43 WBC RBC Hgb Hct MCV MCH MCHC RDW Plt Count MPV Neut % (Auto) Lymph % (Auto) Anderson % (Auto) Eos % (Auto) Baso % (Auto) Neut # (Auto) Lymph # (Auto) Anderson # (Auto) Eos # (Auto) Baso # (Auto) Neutrophils % (Manual) Band Neutrophils % Lymphocytes % (Manual) Monocytes % (Manual) Eosinophils % (Manual) Toxic Granulation Platelet Estimate Hypochromasia (manual) Anisocytosis (manual) Ovalocytes Smear Path Review Retic Count 2.2 H PT INR APTT pO2 VBG pH VBG pCO2 VBG HCO3 VBG Total CO2 VBG O2 Sat (Calc) VBG Base Excess VBG Potassium Sodium Chloride Glucose Lactate Crit Value Called To Crit Value Called By Crit Value Read Back Blood Gas Notified Time Potassium Carbon Dioxide Anion Gap BUN Creatinine Est GFR ( Amer) Est GFR (Non-Af Amer) POC Glucose (mg/dL) 213 H 329 H Random Glucose Calcium Phosphorus Magnesium Iron TIBC % Saturation Transferrin Ferritin Total Bilirubin AST ALT Alkaline Phosphatase Ammonia Troponin I NT-Pro-B Natriuret Pep Total Protein Albumin Globulin Albumin/Globulin Ratio Triglycerides Cholesterol LDL Cholesterol Direct HDL Cholesterol Vitamin B12 Folate Venous Blood Potassium Urine Color Urine Clarity Urine pH Ur Specific [place] Urine Protein Urine Glucose (UA) Urine Ketones Urine Blood Urine Nitrate Urine Bilirubin Urine Urobilinogen Ur Leukocyte Esterase Urine WBC (Auto) Urine RBC (Auto) Ur Squamous Epith Cells Urine Bacteria Hyaline Casts Stool Occult Blood Alcohol, Quantitative B-Hydroxybutyrate Hepatitis A IgM Ab Hep Bs Antigen Hep B Core IgM Ab Hepatitis C Antibody Blood Type Blood Type Confirm Antibody Screen 11/08/18 11/09/18 11/09/18 23:58 00:01 05:06 WBC RBC Hgb Hct MCV MCH MCHC RDW Plt Count MPV Neut % (Auto) Lymph % (Auto) Anderson % (Auto) Eos % (Auto) Baso % (Auto) Neut # (Auto) Lymph # (Auto) Anderson # (Auto) Eos # (Auto) Baso # (Auto) Neutrophils % (Manual) Band Neutrophils % Lymphocytes % (Manual) Monocytes % (Manual) Eosinophils % (Manual) Toxic Granulation Platelet Estimate Hypochromasia (manual) Anisocytosis (manual) Ovalocytes Smear Path Review Retic Count PT INR APTT pO2 VBG pH VBG pCO2 VBG HCO3 VBG Total CO2 VBG O2 Sat (Calc) VBG Base Excess VBG Potassium Sodium Chloride Glucose Lactate Crit Value Called To Crit Value Called By Crit Value Read Back Blood Gas Notified Time Potassium Carbon Dioxide Anion Gap BUN Creatinine Est GFR ( Amer) Est GFR (Non-Af Amer) POC Glucose (mg/dL) 406 H* 424 H* 292 H Random Glucose Calcium Phosphorus Magnesium Iron TIBC % Saturation Transferrin Ferritin Total Bilirubin AST ALT Alkaline Phosphatase Ammonia Troponin I NT-Pro-B Natriuret Pep Total Protein Albumin Globulin Albumin/Globulin Ratio Triglycerides Cholesterol LDL Cholesterol Direct HDL Cholesterol Vitamin B12 Folate Venous Blood Potassium Urine Color Urine Clarity Urine pH Ur Specific [place] Urine Protein Urine Glucose (UA) Urine Ketones Urine Blood Urine Nitrate Urine Bilirubin Urine Urobilinogen Ur Leukocyte Esterase Urine WBC (Auto) Urine RBC (Auto) Ur Squamous Epith Cells Urine Bacteria Hyaline Casts Stool Occult Blood Alcohol, Quantitative B-Hydroxybutyrate Hepatitis A IgM Ab Hep Bs Antigen Hep B Core IgM Ab Hepatitis C Antibody Blood Type Blood Type Confirm Antibody Screen 11/09/18 11/09/18 11/09/18 05:45 05:45 06:02 WBC 14.9 H RBC 3.31 L Hgb 8.6 L D Hct 27.1 L MCV 81.8 MCH 26.1 L MCHC 31.9 L RDW 17.0 H Plt Count 252 MPV 8.2 Neut % (Auto) 84.1 H Lymph % (Auto) 5.8 L Anderson % (Auto) 9.1 Eos % (Auto) 0.7 Baso % (Auto) 0.3 Neut # (Auto) 12.5 H Lymph # (Auto) 0.9 L Anderson # (Auto) 1.4 H Eos # (Auto) 0.1 Baso # (Auto) 0.0 Neutrophils % (Manual) 62 Band Neutrophils % 18 H* Lymphocytes % (Manual) 10 L Monocytes % (Manual) 9 Eosinophils % (Manual) 1 Toxic Granulation Present Platelet Estimate Normal Hypochromasia (manual) Slight Anisocytosis (manual) Slight Ovalocytes Slight Smear Path Review Retic Count PT 13.6 H D INR 1.2 D APTT 28 pO2 VBG pH VBG pCO2 VBG HCO3 VBG Total CO2 VBG O2 Sat (Calc) VBG Base Excess VBG Potassium Sodium 137 Chloride 107 Glucose Lactate Crit Value Called To Crit Value Called By Crit Value Read Back Blood Gas Notified Time Potassium 3.6 Carbon Dioxide 24 Anion Gap 9 L BUN 17 Creatinine 0.5 L Est GFR ( Amer) > 60 Est GFR (Non-Af Amer) > 60 POC Glucose (mg/dL) Random Glucose 249 H Calcium 10.3 Phosphorus 2.1 L Magnesium 2.1 Iron TIBC % Saturation Transferrin Ferritin Total Bilirubin 1.0 AST 13 L ALT 15 L D Alkaline Phosphatase 82 Ammonia Troponin I NT-Pro-B Natriuret Pep Total Protein 5.3 L Albumin 2.2 L D Globulin 3.2 Albumin/Globulin Ratio 0.7 L Triglycerides 76 Cholesterol < 50 LDL Cholesterol Direct 36 HDL Cholesterol 16 L Vitamin B12 Folate Venous Blood Potassium Urine Color Urine Clarity Urine pH Ur Specific [place] Urine Protein Urine Glucose (UA) Urine Ketones Urine Blood Urine Nitrate Urine Bilirubin Urine Urobilinogen Ur Leukocyte Esterase Urine WBC (Auto) Urine RBC (Auto) Ur Squamous Epith Cells Urine Bacteria Hyaline Casts Stool Occult Blood Alcohol, Quantitative B-Hydroxybutyrate Hepatitis A IgM Ab Hep Bs Antigen Hep B Core IgM Ab Hepatitis C Antibody Blood Type Blood Type Confirm Antibody Screen - Imaging and Cardiology CT scan- C/A/P Status: Image reviewed by me, Report reviewed by me Assessment & Plan - Assessment and Plan (Free Text) Assessment: 58 y/o M w/ large L pleural effusion and possible GE junction mass Plan: - f/u thoracentesis - f/u GI recs --> possible EGD - f/u Cx and cytology - cont Abx - supplemental nutrition once PO - transfuse for Hgb <7 - cont management per ICU - PT/OT Pt discussed w/ Dr. Yesenia Rivas DO PGY3
--- NOTE | 2018-11-09 08:41 | CP.PCM.CON ---
History of Present Illness - History of Present Illness History of Present Illness: Pt is a 58 yo male ho dm, chf, esophageal mass, and presents with severe anemia. Pt received 3 units prbc/ 1 unit of ffp. Pt is currently scheduled for EGD. Pt currently has a large left pleural effusion and a h/o of abnormal stress test. If patient is actively bleeding and the benefits outweigh the risk, will proceed. Otherwise, please document pulmonary/ cardiac optimization prior to elective procedures. thank you. Past Patient History - Past Medical History & Family History Past Medical History?: Yes - Past Social History Smoking Status: Light Smoker < 10 Cigarettes Daily - CARDIAC Hx Cardiac Disorders: No Other/Comment: Cardiomegaly. HYPOTENSION - PULMONARY Hx Pneumonia: Yes - NEUROLOGICAL Hx Neurological Disorder: No - HEENT Hx HEENT Problems: No - RENAL Hx Chronic Kidney Disease: No - ENDOCRINE/METABOLIC Hx Endocrine Disorders: Yes Hx Diabetes Mellitus Type 2: Yes - HEMATOLOGICAL/ONCOLOGICAL Hx Anemia: Yes - INTEGUMENTARY Hx Dermatological Problems: No - MUSCULOSKELETAL/RHEUMATOLOGICAL Hx Musculoskeletal Disorders: No Hx Falls: No - GASTROINTESTINAL Hx Gastrointestinal Disorders: Yes - GENITOURINARY/GYNECOLOGICAL Hx Genitourinary Disorders: No - PSYCHIATRIC Hx Substance Use: No - SURGICAL HISTORY Other/Comment: Hernia Removed / 1990 - ANESTHESIA Hx Anesthesia: Yes Hx Anesthesia Reactions: No Hx Malignant Hyperthermia: No Meds Allergies/Adverse Reactions: Allergies Allergy/AdvReac Type Severity Reaction Status Date / Time No Known Allergies Allergy Verified 11/08/18 12:52 - Medications Medications: Current Medications Acetaminophen (Tylenol 325mg Tab) 650 mg PO Q6 PRN PRN Reason: Fever >100.4 F Dextrose (Dextrose 50% Inj) 0 ml IV STAT PRN; Protocol PRN Reason: Hypoglycemia Protocol Dextrose (Glutose 15) 0 gm PO ONCE PRN; Protocol PRN Reason: Hypoglycemia Protocol Folic Acid (Folic Acid) 1 mg PO DAILY [facility] Glucagon (Glucagen Diagnostic Kit) 0 mg IM STAT PRN; Protocol PRN Reason: Hypoglycemia Protocol Dextrose (Dextrose 5% In Water 1000 Ml) 1,000 mls @ 0 mls/hr IV .Q0M PRN; Protocol PRN Reason: Hypoglycemia Protocol Sodium Chloride (Sodium Chloride 0.9%) 1,000 mls @ 100 mls/hr IV .Q10H [facility] Last Admin: 11/09/18 01:50 Dose: 100 mls/hr Piperacillin Sod/Tazobactam Sod (Zosyn 3.375 Gm Iv Premix) 3.375 gm in 50 mls @ 100 mls/hr IVPB Q6H [facility]; Protocol Last Admin: 11/09/18 07:35 Dose: 100 mls/hr Vancomycin/Sodium Chloride (Vancomycin 1 Gm/Ns 200 Ml) 1 gm in 200 mls @ 133.333 mls/hr IVPB Q12H [facility]; Protocol Stop: 11/14/18 02:31 Last Admin: 11/09/18 01:50 Dose: 133.333 mls/hr Insulin Human Regular (Novolin R) 0 unit SC Q6 [facility]; Protocol Last Admin: 11/09/18 06:14 Dose: Not Given Multivitamins (Hexavitamin) 1 tab PO DAILY [facility] Nicotine (Nicoderm Cq) 1 patch TD DAILY [facility] Pantoprazole Sodium (Protonix Inj) 40 mg IVP Q12H [facility] Thiamine HCl (Vitamin B1 Tab) 100 mg PO DAILY [facility] Results - Vital Signs Recent Vital Signs: Last Vital Signs Temp 98.5 F 11/09/18 04:00 Pulse 77 11/09/18 08:00 Resp 26 H 11/09/18 08:00 BP 110/67 11/09/18 08:02 Pulse Ox 96 11/09/18 08:00 - Labs Result Diagrams: 11/09/18 06:02 11/09/18 05:45 Labs: Laboratory Results - last 24 hr 11/08/18 11/08/18 11/08/18 13:31 13:35 13:39 WBC 17.2 H D RBC 2.08 L Hgb 5.0 L* D Hct 16.8 L MCV 80.7 D MCH 23.9 L MCHC 29.7 L RDW 17.8 H Plt Count 324 MPV 8.2 Neut % (Auto) 88.7 H Lymph % (Auto) 2.8 L [place] % (Auto) 8.1 Eos % (Auto) 0.1 Baso % (Auto) 0.3 Neut # (Auto) 15.2 H Lymph # (Auto) 0.5 L [place] # (Auto) 1.4 H Eos # (Auto) 0.0 Baso # (Auto) 0.0 Neutrophils % (Manual) 74 Band Neutrophils % 10 H Lymphocytes % (Manual) 3 L Monocytes % (Manual) 13 H Eosinophils % (Manual) Toxic Granulation Present Platelet Estimate Normal Hypochromasia (manual) Moderate Anisocytosis (manual) Slight Ovalocytes Smear Path Review Retic Count PT INR APTT pO2 21 L VBG pH 7.34 VBG pCO2 25 L VBG HCO3 14.9 VBG Total CO2 14.3 L VBG O2 Sat (Calc) 33.2 L VBG Base Excess -10.5 L VBG Potassium 2.3 L* Sodium 143.0 Chloride 111.0 H Glucose 298 H Lactate 3.5 H Crit Value Called To Power iyer Crit Value Called By Alicia collins gas appliance mechanic Crit Value Read Back Y Blood Gas Notified Time 1337 Potassium Carbon Dioxide Anion Gap BUN Creatinine Est GFR ( Amer) Est GFR (Non-Af Amer) POC Glucose (mg/dL) 450 H* Random Glucose Calcium Phosphorus Magnesium Iron TIBC % Saturation Transferrin Ferritin Total Bilirubin AST ALT Alkaline Phosphatase Ammonia Troponin I NT-Pro-B Natriuret Pep Total Protein Albumin Globulin Albumin/Globulin Ratio Triglycerides Cholesterol LDL Cholesterol Direct HDL Cholesterol Vitamin B12 Folate Venous Blood Potassium 2.3 L* Urine Color Urine Clarity Urine pH Ur Specific [place] Urine Protein Urine Glucose (UA) Urine Ketones Urine Blood Urine Nitrate Urine Bilirubin Urine Urobilinogen Ur Leukocyte Esterase Urine WBC (Auto) Urine RBC (Auto) Ur Squamous Epith Cells Urine Bacteria Hyaline Casts Stool Occult Blood Alcohol, Quantitative B-Hydroxybutyrate Hepatitis A IgM Ab Hep Bs Antigen Hep B Core IgM Ab Hepatitis C Antibody Blood Type Blood Type Confirm Antibody Screen 11/08/18 11/08/18 11/08/18 13:39 13:39 13:39 WBC RBC Hgb Hct MCV MCH MCHC RDW Plt Count MPV Neut % (Auto) Lymph % (Auto) [place] % (Auto) Eos % (Auto) Baso % (Auto) Neut # (Auto) Lymph # (Auto) [place] # (Auto) Eos # (Auto) Baso # (Auto) Neutrophils % (Manual) Band Neutrophils % Lymphocytes % (Manual) Monocytes % (Manual) Eosinophils % (Manual) Toxic Granulation Platelet Estimate Hypochromasia (manual) Anisocytosis (manual) Ovalocytes Smear Path Review Retic Count PT 18.7 H INR 1.7 APTT 30 pO2 VBG pH VBG pCO2 VBG HCO3 VBG Total CO2 VBG O2 Sat (Calc) VBG Base Excess VBG Potassium Sodium 138 Chloride 109 H Glucose Lactate Crit Value Called To Crit Value Called By Crit Value Read Back Blood Gas Notified Time Potassium 2.6 L Carbon Dioxide 16 L Anion Gap 16 BUN 14 Creatinine 0.5 L Est GFR ( Amer) > 60 Est GFR (Non-Af Amer) > 60 POC Glucose (mg/dL) Random Glucose 307 H D Calcium 7.7 L Phosphorus 2.2 L Magnesium 1.6 Iron TIBC % Saturation Transferrin Ferritin Total Bilirubin 0.3 AST 12 L D ALT 11 L D Alkaline Phosphatase 74 Ammonia Troponin I < 0.0120 NT-Pro-B Natriuret Pep 421 Total Protein 4.5 L Albumin 1.7 L D Globulin 2.8 Albumin/Globulin Ratio 0.6 L Triglycerides Cholesterol LDL Cholesterol Direct HDL Cholesterol Vitamin B12 Folate Venous Blood Potassium Urine Color Urine Clarity Urine pH Ur Specific [place] Urine Protein Urine Glucose (UA) Urine Ketones Urine Blood Urine Nitrate Urine Bilirubin Urine Urobilinogen Ur Leukocyte Esterase Urine WBC (Auto) Urine RBC (Auto) Ur Squamous Epith Cells Urine Bacteria Hyaline Casts Stool Occult Blood Alcohol, Quantitative B-Hydroxybutyrate Hepatitis A IgM Ab Hep Bs Antigen Hep B Core IgM Ab Hepatitis C Antibody Blood Type AB POSITIVE Blood Type Confirm AB POSITIVE Antibody Screen Negative 11/08/18 11/08/18 11/08/18 13:39 14:07 14:55 WBC RBC Hgb Hct MCV MCH MCHC RDW Plt Count MPV Neut % (Auto) Lymph % (Auto) [place] % (Auto) Eos % (Auto) Baso % (Auto) Neut # (Auto) Lymph # (Auto) [place] # (Auto) Eos # (Auto) Baso # (Auto) Neutrophils % (Manual) Band Neutrophils % Lymphocytes % (Manual) Monocytes % (Manual) Eosinophils % (Manual) Toxic Granulation Platelet Estimate Hypochromasia (manual) Anisocytosis (manual) Ovalocytes Smear Path Review Retic Count PT INR APTT pO2 73 H VBG pH 7.34 VBG pCO2 23 L VBG HCO3 15.9 VBG Total CO2 13.1 L VBG O2 Sat (Calc) 94.4 H VBG Base Excess -11.4 L VBG Potassium 2.0 L* Sodium 135.0 Chloride 104.0 Glucose 244 H Lactate 1.7 Crit Value Called To Dr. kumar Crit Value Called By Afsaneh perez rcp Crit Value Read Back Y Blood Gas Notified Time 1505 Potassium Carbon Dioxide Anion Gap BUN Creatinine Est GFR ( Amer) Est GFR (Non-Af Amer) POC Glucose (mg/dL) Random Glucose Calcium Phosphorus Magnesium Iron TIBC % Saturation Transferrin Ferritin Total Bilirubin AST ALT Alkaline Phosphatase Ammonia Troponin I NT-Pro-B Natriuret Pep Total Protein Albumin Globulin Albumin/Globulin Ratio Triglycerides Cholesterol LDL Cholesterol Direct HDL Cholesterol Vitamin B12 Folate Venous Blood Potassium 2.0 L* Urine Color Yellow Urine Clarity Hazy Urine pH 5.0 Ur Specific [place] 1.022 Urine Protein 1+ H Urine Glucose (UA) 3+ H Urine Ketones 2+ H Urine Blood Negative Urine Nitrate Negative Urine Bilirubin Negative Urine Urobilinogen Normal Ur Leukocyte Esterase Neg Urine WBC (Auto) 8 H Urine RBC (Auto) 2 Ur Squamous Epith Cells < 1 Urine Bacteria Rare Hyaline Casts >20 H Stool Occult Blood Negative Alcohol, Quantitative B-Hydroxybutyrate Hepatitis A IgM Ab Hep Bs Antigen Hep B Core IgM Ab Hepatitis C Antibody Blood Type Blood Type Confirm Antibody Screen 11/08/18 11/08/18 11/08/18 16:07 16:07 16:07 WBC RBC Hgb Hct MCV MCH MCHC RDW Plt Count MPV Neut % (Auto) Lymph % (Auto) [place] % (Auto) Eos % (Auto) Baso % (Auto) Neut # (Auto) Lymph # (Auto) [place] # (Auto) Eos # (Auto) Baso # (Auto) Neutrophils % (Manual) Band Neutrophils % Lymphocytes % (Manual) Monocytes % (Manual) Eosinophils % (Manual) Toxic Granulation Platelet Estimate Hypochromasia (manual) Anisocytosis (manual) Ovalocytes Smear Path Review Retic Count PT INR APTT pO2 VBG pH VBG pCO2 VBG HCO3 VBG Total CO2 VBG O2 Sat (Calc) VBG Base Excess VBG Potassium Sodium Chloride Glucose Lactate Crit Value Called To Crit Value Called By Crit Value Read Back Blood Gas Notified Time Potassium Carbon Dioxide Anion Gap BUN Creatinine Est GFR ( Amer) Est GFR (Non-Af Amer) POC Glucose (mg/dL) Random Glucose Calcium Phosphorus Magnesium Iron < 10 L TIBC 148 L % Saturation Transferrin < 80.00 L Ferritin 39.5 Total Bilirubin AST ALT Alkaline Phosphatase Ammonia Troponin I NT-Pro-B Natriuret Pep Total Protein Albumin Globulin Albumin/Globulin Ratio Triglycerides Cholesterol LDL Cholesterol Direct HDL Cholesterol Vitamin B12 967 H Folate 10.5 Venous Blood Potassium Urine Color Urine Clarity Urine pH Ur Specific [place] Urine Protein Urine Glucose (UA) Urine Ketones Urine Blood Urine Nitrate Urine Bilirubin Urine Urobilinogen Ur Leukocyte Esterase Urine WBC (Auto) Urine RBC (Auto) Ur Squamous Epith Cells Urine Bacteria Hyaline Casts Stool Occult Blood Alcohol, Quantitative < 10 B-Hydroxybutyrate 4.94 H Hepatitis A IgM Ab Hep Bs Antigen Hep B Core IgM Ab Hepatitis C Antibody Blood Type Blood Type Confirm Antibody Screen 11/08/18 11/08/18 11/08/18 16:07 16:07 16:10 WBC RBC Hgb Hct MCV MCH MCHC RDW Plt Count MPV Neut % (Auto) Lymph % (Auto) [place] % (Auto) Eos % (Auto) Baso % (Auto) Neut # (Auto) Lymph # (Auto) [place] # (Auto) Eos # (Auto) Baso # (Auto) Neutrophils % (Manual) Band Neutrophils % Lymphocytes % (Manual) Monocytes % (Manual) Eosinophils % (Manual) Toxic Granulation Platelet Estimate Hypochromasia (manual) Anisocytosis (manual) Ovalocytes Smear Path Review Retic Count PT INR APTT pO2 VBG pH VBG pCO2 VBG HCO3 VBG Total CO2 VBG O2 Sat (Calc) VBG Base Excess VBG Potassium Sodium Chloride Glucose Lactate Crit Value Called To Crit Value Called By Crit Value Read Back Blood Gas Notified Time Potassium Carbon Dioxide Anion Gap BUN Creatinine Est GFR ( Amer) Est GFR (Non-Af Amer) POC Glucose (mg/dL) 300 H Random Glucose Calcium Phosphorus Magnesium Iron TIBC % Saturation Transferrin Ferritin Total Bilirubin AST ALT Alkaline Phosphatase Ammonia 29 Troponin I NT-Pro-B Natriuret Pep Total Protein Albumin Globulin Albumin/Globulin Ratio Triglycerides Cholesterol LDL Cholesterol Direct HDL Cholesterol Vitamin B12 Folate Venous Blood Potassium Urine Color Urine Clarity Urine pH Ur Specific [place] Urine Protein Urine Glucose (UA) Urine Ketones Urine Blood Urine Nitrate Urine Bilirubin Urine Urobilinogen Ur Leukocyte Esterase Urine WBC (Auto) Urine RBC (Auto) Ur Squamous Epith Cells Urine Bacteria Hyaline Casts Stool Occult Blood Alcohol, Quantitative B-Hydroxybutyrate Hepatitis A IgM Ab Negative Hep Bs Antigen Negative Hep B Core IgM Ab Negative Hepatitis C Antibody Negative Blood Type Blood Type Confirm Antibody Screen 11/08/18 11/08/18 11/08/18 18:09 18:21 21:43 WBC RBC Hgb Hct MCV MCH MCHC RDW Plt Count MPV Neut % (Auto) Lymph % (Auto) [place] % (Auto) Eos % (Auto) Baso % (Auto) Neut # (Auto) Lymph # (Auto) [place] # (Auto) Eos # (Auto) Baso # (Auto) Neutrophils % (Manual) Band Neutrophils % Lymphocytes % (Manual) Monocytes % (Manual) Eosinophils % (Manual) Toxic Granulation Platelet Estimate Hypochromasia (manual) Anisocytosis (manual) Ovalocytes Smear Path Review Retic Count 2.2 H PT INR APTT pO2 VBG pH VBG pCO2 VBG HCO3 VBG Total CO2 VBG O2 Sat (Calc) VBG Base Excess VBG Potassium Sodium Chloride Glucose Lactate Crit Value Called To Crit Value Called By Crit Value Read Back Blood Gas Notified Time Potassium Carbon Dioxide Anion Gap BUN Creatinine Est GFR ( Amer) Est GFR (Non-Af Amer) POC Glucose (mg/dL) 213 H 329 H Random Glucose Calcium Phosphorus Magnesium Iron TIBC % Saturation Transferrin Ferritin Total Bilirubin AST ALT Alkaline Phosphatase Ammonia Troponin I NT-Pro-B Natriuret Pep Total Protein Albumin Globulin Albumin/Globulin Ratio Triglycerides Cholesterol LDL Cholesterol Direct HDL Cholesterol Vitamin B12 Folate Venous Blood Potassium Urine Color Urine Clarity Urine pH Ur Specific [place] Urine Protein Urine Glucose (UA) Urine Ketones Urine Blood Urine Nitrate Urine Bilirubin Urine Urobilinogen Ur Leukocyte Esterase Urine WBC (Auto) Urine RBC (Auto) Ur Squamous Epith Cells Urine Bacteria Hyaline Casts Stool Occult Blood Alcohol, Quantitative B-Hydroxybutyrate Hepatitis A IgM Ab Hep Bs Antigen Hep B Core IgM Ab Hepatitis C Antibody Blood Type Blood Type Confirm Antibody Screen 11/08/18 11/09/18 11/09/18 23:58 00:01 05:06 WBC RBC Hgb Hct MCV MCH MCHC RDW Plt Count MPV Neut % (Auto) Lymph % (Auto) [place] % (Auto) Eos % (Auto) Baso % (Auto) Neut # (Auto) Lymph # (Auto) [place] # (Auto) Eos # (Auto) Baso # (Auto) Neutrophils % (Manual) Band Neutrophils % Lymphocytes % (Manual) Monocytes % (Manual) Eosinophils % (Manual) Toxic Granulation Platelet Estimate Hypochromasia (manual) Anisocytosis (manual) Ovalocytes Smear Path Review Retic Count PT INR APTT pO2 VBG pH VBG pCO2 VBG HCO3 VBG Total CO2 VBG O2 Sat (Calc) VBG Base Excess VBG Potassium Sodium Chloride Glucose Lactate Crit Value Called To Crit Value Called By Crit Value Read Back Blood Gas Notified Time Potassium Carbon Dioxide Anion Gap BUN Creatinine Est GFR ( Amer) Est GFR (Non-Af Amer) POC Glucose (mg/dL) 406 H* 424 H* 292 H Random Glucose Calcium Phosphorus Magnesium Iron TIBC % Saturation Transferrin Ferritin Total Bilirubin AST ALT Alkaline Phosphatase Ammonia Troponin I NT-Pro-B Natriuret Pep Total Protein Albumin Globulin Albumin/Globulin Ratio Triglycerides Cholesterol LDL Cholesterol Direct HDL Cholesterol Vitamin B12 Folate Venous Blood Potassium Urine Color Urine Clarity Urine pH Ur Specific [place] Urine Protein Urine Glucose (UA) Urine Ketones Urine Blood Urine Nitrate Urine Bilirubin Urine Urobilinogen Ur Leukocyte Esterase Urine WBC (Auto) Urine RBC (Auto) Ur Squamous Epith Cells Urine Bacteria Hyaline Casts Stool Occult Blood Alcohol, Quantitative B-Hydroxybutyrate Hepatitis A IgM Ab Hep Bs Antigen Hep B Core IgM Ab Hepatitis C Antibody Blood Type Blood Type Confirm Antibody Screen 11/09/18 11/09/18 11/09/18 05:45 05:45 06:02 WBC 14.9 H RBC 3.31 L Hgb 8.6 L D Hct 27.1 L MCV 81.8 MCH 26.1 L MCHC 31.9 L RDW 17.0 H Plt Count 252 MPV 8.2 Neut % (Auto) 84.1 H Lymph % (Auto) 5.8 L [place] % (Auto) 9.1 Eos % (Auto) 0.7 Baso % (Auto) 0.3 Neut # (Auto) 12.5 H Lymph # (Auto) 0.9 L [place] # (Auto) 1.4 H Eos # (Auto) 0.1 Baso # (Auto) 0.0 Neutrophils % (Manual) 62 Band Neutrophils % 18 H* Lymphocytes % (Manual) 10 L Monocytes % (Manual) 9 Eosinophils % (Manual) 1 Toxic Granulation Present Platelet Estimate Normal Hypochromasia (manual) Slight Anisocytosis (manual) Slight Ovalocytes Slight Smear Path Review Retic Count PT 13.6 H D INR 1.2 D APTT 28 pO2 VBG pH VBG pCO2 VBG HCO3 VBG Total CO2 VBG O2 Sat (Calc) VBG Base Excess VBG Potassium Sodium 137 Chloride 107 Glucose Lactate Crit Value Called To Crit Value Called By Crit Value Read Back Blood Gas Notified Time Potassium 3.6 Carbon Dioxide 24 Anion Gap 9 L BUN 17 Creatinine 0.5 L Est GFR ( Amer) > 60 Est GFR (Non-Af Amer) > 60 POC Glucose (mg/dL) Random Glucose 249 H Calcium 10.3 Phosphorus 2.1 L Magnesium 2.1 Iron TIBC % Saturation Transferrin Ferritin Total Bilirubin 1.0 AST 13 L ALT 15 L D Alkaline Phosphatase 82 Ammonia Troponin I NT-Pro-B Natriuret Pep Total Protein 5.3 L Albumin 2.2 L D Globulin 3.2 Albumin/Globulin Ratio 0.7 L Triglycerides 76 Cholesterol < 50 LDL Cholesterol Direct 36 HDL Cholesterol 16 L Vitamin B12 Folate Venous Blood Potassium Urine Color Urine Clarity Urine pH Ur Specific [place] Urine Protein Urine Glucose (UA) Urine Ketones Urine Blood Urine Nitrate Urine Bilirubin Urine Urobilinogen Ur Leukocyte Esterase Urine WBC (Auto) Urine RBC (Auto) Ur Squamous Epith Cells Urine Bacteria Hyaline Casts Stool Occult Blood Alcohol, Quantitative B-Hydroxybutyrate Hepatitis A IgM Ab Hep Bs Antigen Hep B Core IgM Ab Hepatitis C Antibody Blood Type Blood Type Confirm Antibody Screen
[2018-11-09] MEDS ORDERED: Lidocaine Hydrochloride 10 ML INJ ONE (09:25)
--- NOTE | 2018-11-09 10:03 | CP.PCM.PN ---
Subjective - Date & Time of Evaluation Date of Evaluation: 11/09/18 Time of Evaluation: 09:50 - Subjective Subjective: Medical Attending Note: Patient seen and examined at bedside. Patient reports he feels tired and weak. He denies headache, denies chest pain, denies palpations, he has not had a bowel movement, no family present at bedside. Cardiology has put in EMR order in [facility] saying cleared for EGD. Patient is pending EGD, thoracentesis and thoracic surgery evaluation. Objective - Vital Signs/Intake and Output Vital Signs (last 24 hours): Temp Pulse Resp BP Pulse Ox 98.2 F 77 26 H 110/67 96 11/09/18 08:00 11/09/18 08:00 11/09/18 08:00 11/09/18 08:02 11/09/18 08:00 Intake and Output: 11/09/18 11/09/18 06:59 18:59 Intake Total 3274 425 Output Total 800 100 Balance 2474 325 - Medications Medications: Current Medications Acetaminophen (Tylenol 325mg Tab) 650 mg PO Q6 PRN PRN Reason: Fever >100.4 F Dextrose (Dextrose 50% Inj) 0 ml IV STAT PRN; Protocol PRN Reason: Hypoglycemia Protocol Dextrose (Glutose 15) 0 gm PO ONCE PRN; Protocol PRN Reason: Hypoglycemia Protocol Folic Acid (Folic Acid) 1 mg PO DAILY [facility] Glucagon (Glucagen Diagnostic Kit) 0 mg IM STAT PRN; Protocol PRN Reason: Hypoglycemia Protocol Dextrose (Dextrose 5% In Water 1000 Ml) 1,000 mls @ 0 mls/hr IV .Q0M PRN; Protocol PRN Reason: Hypoglycemia Protocol Sodium Chloride (Sodium Chloride 0.9%) 1,000 mls @ 100 mls/hr IV .Q10H [facility] Last Admin: 11/09/18 01:50 Dose: 100 mls/hr Piperacillin Sod/Tazobactam Sod (Zosyn 3.375 Gm Iv Premix) 3.375 gm in 50 mls @ 100 mls/hr IVPB Q6H [facility]; Protocol Last Admin: 11/09/18 07:35 Dose: 100 mls/hr Vancomycin/Sodium Chloride (Vancomycin 1 Gm/Ns 200 Ml) 1 gm in 200 mls @ 133.333 mls/hr IVPB Q12H [facility]; Protocol Stop: 11/14/18 02:31 Last Admin: 11/09/18 01:50 Dose: 133.333 mls/hr Insulin Human Regular (Novolin R) 0 unit SC Q6 [facility]; Protocol Last Admin: 11/09/18 06:14 Dose: Not Given Multivitamins (Hexavitamin) 1 tab PO DAILY [facility] Nicotine (Nicoderm Cq) 1 patch TD DAILY [facility] Last Admin: 11/09/18 09:54 Dose: 1 patch Pantoprazole Sodium (Protonix Inj) 40 mg IVP Q12H [facility] Thiamine HCl (Vitamin B1 Tab) 100 mg PO DAILY [facility] - Labs Labs: 11/09/18 06:02 11/09/18 05:45 PT 13.6 SECONDS (9.7-12.2) H D 11/09/18 05:45 INR 1.2 D 11/09/18 05:45 APTT 28 SECONDS (21-34) 11/09/18 05:45 - Constitutional Appears: Non-toxic, Unkempt, Chronically Ill, Other (cachetic pale) - Head Exam Head Exam: NORMAL INSPECTION - Eye Exam Eye Exam: EOMI - ENT Exam ENT Exam: Mucous Membranes Moist - Respiratory Exam Respiratory Exam: Rales (left lower), NORMAL BREATHING PATTERN. absent: Wheezes - Cardiovascular Exam Cardiovascular Exam: REGULAR RHYTHM, +S1, +S2 - GI/Abdominal Exam GI & Abdominal Exam: Soft, Normal Bowel Sounds. absent: Distended, Firm, Guarding, Rigid, Tenderness, Rebound - Extremities Exam Extremities Exam: absent: Pedal Edema, Tenderness - Neurological Exam Neurological Exam: Alert, Awake, Oriented x3 Neuro motor strength exam: Left Upper Extremity: 3, Right Upper Extremity: 3, Left Lower Extremity: 3, Right Lower Extremity: 3 - Skin Skin Exam: Dry, Pallor, Warm Assessment and Plan (1) Sepsis Assessment & Plan: Code sepsis 11/08/18 Criteria: leukocytosis, hypotension, bandemia, hypothemia, unclear source of infection Lactic acid: 3.5-->1.7 Blood culture (11/08/18): pending Urine culture (11/08/18): pending Chest xray (11/08/18): layering left pleural effusion and/or consolidation infectious disease on board Zosyn 3.375g IV Q6H (active since 11/08/18) Vancomycin 1 gram IV Q 12H (active since 11/08/18) Procalcitonin pending Status: Acute (2) Pleural effusion Assessment & Plan: unclear if related to cirrhosis, pneumonia Chest xray (11.08.18): layering left pleural effusion and/or consolidation IR thoracentesis pending Pending fluid studies * albumin, cell count, glucose, ldh, total protein, body culture, tb culture, fungal culture pending echo cardiogram Status: Acute (3) Anemia Assessment & Plan: hgb 10-->5 blood transfusion consent obtained by resident 11/08/18 given 3 units of PRBC overnight night and 1 FFP unit rectal negative ferritin low iron low tibc: 148 low transferrin low reticulocyte count: 2.2--> reticulocyte index: 0.12-->hypoproliferation <2 Folate low B12: 967 (low) occult blood: negative GI pending for EGD Noted CT scan for GE mass, thoracic surgery on case Status: Acute (4) Cirrhosis Assessment & Plan: CT Chest/Abdomen/pelvis IV contrast (11/08/18): prruir amount of ascites and anasarca has improved. further findings per report Abdominal US (08/18/18): limited study. echogenic liver may be seen in hepatic parenchymal disease or fatty infiltrate. nodular hepatic contour. chol elithiasis. gallbladder wall thickening/pericholecystic edema. negative sonographic Cespedes's small abdominal ascites left pleural effusion Hepatitis Panel negative Blood alcohol <10 Patient notes he has drinking 3 shots of vodka X30 years. GI on board Status: Acute (5) Diabetes mellitus Assessment & Plan: Hgba1c: 8.1 Patient is off metformin given elevatec lactic on admission Regular insulin sliding scale sub6H off hermilo/arb given hypotension Status: Acute (6) Abnormal CT scan, chest Assessment & Plan: Ct chest (11/08/18): appearance of GE junction is indetermine a hiatal ernia, 1 consideration concmitant undelrying mass is also consideration GI and Thoracic surgery on board pending EGD Status: Acute (7) Alcohol use Assessment & Plan: ciwa protocol Aspiration precautions seizure precautions will need folate/thiamine/mvi monitor for withdrawal patient is not in withdrawal Status: Acute (8) Tobacco use Assessment & Plan: 1 ppd X30 years nicotone patch advised smoking cessation Status: Acute (9) Cachexia Status: Acute (10) Ulcer of sacral region, stage 1 Assessment & Plan: bed bounnd wound care turn q2h Status: Acute (11) Prophylactic measure Status: Acute
[2018-11-09] MEDS ORDERED: Multivitamin (MVI) 10 ML, Thiamine 100 MG, Folic Acid 1 MG in Sodium Chloride 0.9% 1,00... IV ONE (10:25)
--- NOTE | 2018-11-09 10:26 | PCM.SURG1 ---
Surgeon's Initial Post Op Note - Surgeon's Notes Surgeon: Shahbaz Clemons MD Screen Stretcher: NONE Type of Anesthesia: Local Pre-Operative Diagnosis: Empyema Operative Findings: US showed complex loculated left pleural effusion Post-Operative Diagnosis: EMpyema Operation Performed: 8 fr pigtail pleural drainage catheter placement Specimen/Specimens Removed: 60 cc of purulent drainage Estimated Blood Loss: EBL {In ML}: 2 Blood Products Given: N/A Post-Op Condition: Fair Date of Surgery/Procedure: 11/09/18 Time of Surgery/Procedure: 10:25
--- NOTE | 2018-11-09 11:08 | CP.PCM.PN ---
<Tejal Brothers - Last Filed: 11/09/18 11:06> Subjective - Date & Time of Evaluation Date of Evaluation: 11/09/18 Time of Evaluation: 11:06 - Subjective Subjective: Gastroentereology Fellow/PGY6 Progress Note Patient denies abdominal pain. Continues to have weakness. No bowel movement yesterday. A 12-point review of systems negative except for as above. Objective - Vital Signs/Intake and Output Vital Signs (last 24 hours): Temp Pulse Resp BP Pulse Ox 98.2 F 88 19 99/60 L 97 11/09/18 08:00 11/09/18 10:04 11/09/18 10:04 11/09/18 10:04 11/09/18 10:04 Intake and Output: 11/09/18 11/09/18 06:59 18:59 Intake Total 3274 625 Output Total 800 100 Balance 2474 525 - Medications Medications: Current Medications Acetaminophen (Tylenol 325mg Tab) 650 mg PO Q6 PRN PRN Reason: Fever >100.4 F Dextrose (Dextrose 50% Inj) 0 ml IV STAT PRN; Protocol PRN Reason: Hypoglycemia Protocol Dextrose (Glutose 15) 0 gm PO ONCE PRN; Protocol PRN Reason: Hypoglycemia Protocol Folic Acid (Folic Acid) 1 mg PO DAILY [facility] Glucagon (Glucagen Diagnostic Kit) 0 mg IM STAT PRN; Protocol PRN Reason: Hypoglycemia Protocol Dextrose (Dextrose 5% In Water 1000 Ml) 1,000 mls @ 0 mls/hr IV .Q0M PRN; Protocol PRN Reason: Hypoglycemia Protocol Sodium Chloride (Sodium Chloride 0.9%) 1,000 mls @ 100 mls/hr IV .Q10H [facility] Last Admin: 11/09/18 01:50 Dose: 100 mls/hr Piperacillin Sod/Tazobactam Sod (Zosyn 3.375 Gm Iv Premix) 3.375 gm in 50 mls @ 100 mls/hr IVPB Q6H [facility]; Protocol Last Admin: 11/09/18 07:35 Dose: 100 mls/hr Vancomycin/Sodium Chloride (Vancomycin 1 Gm/Ns 200 Ml) 1 gm in 200 mls @ 133.333 mls/hr IVPB Q12H [facility]; Protocol Stop: 11/14/18 02:31 Last Admin: 11/09/18 01:50 Dose: 133.333 mls/hr Insulin Human Regular (Novolin R) 0 unit SC Q6 [facility]; Protocol Last Admin: 11/09/18 06:14 Dose: Not Given Multivitamins (Hexavitamin) 1 tab PO DAILY [facility] Nicotine (Nicoderm Cq) 1 patch TD DAILY [facility] Last Admin: 11/09/18 09:54 Dose: 1 patch Pantoprazole Sodium (Protonix Inj) 40 mg IVP Q12H [facility] Thiamine HCl (Vitamin B1 Tab) 100 mg PO DAILY [facility] - Labs Labs: 11/09/18 06:02 11/09/18 05:45 PT 13.6 SECONDS (9.7-12.2) H D 11/09/18 05:45 INR 1.2 D 11/09/18 05:45 APTT 28 SECONDS (21-34) 11/09/18 05:45 - Constitutional Appears: Non-toxic, No Acute Distress, Cachectic - Head Exam Head Exam: ATRAUMATIC, NORMOCEPHALIC - Eye Exam Eye Exam: EOMI, PERRL. absent: Scleral icterus Pupil Exam: PERRL. absent: Miosis, Mydriatic - ENT Exam ENT Exam: Mucous Membranes Moist, Normal Oropharynx - Neck Exam Neck Exam: Full ROM, Normal Inspection - Respiratory Exam Respiratory Exam: Decreased Breath Sounds. absent: Rales - Cardiovascular Exam Cardiovascular Exam: RRR, +S1, +S2. absent: Gallop, Rubs - GI/Abdominal Exam GI & Abdominal Exam: Soft, Normal Bowel Sounds. absent: Distended, Firm, Guarding, Rigid, Tenderness, Organomegaly, Rebound - Extremities Exam Extremities Exam: Pedal Edema - Neurological Exam Neurological Exam: Alert, Awake - Psychiatric Exam Psychiatric exam: Normal Affect, Normal Mood - Skin Skin Exam: Dry, Intact, Normal Color, Warm Assessment and Plan - Assessment and Plan (Free Text) Assessment: 58 year old male with PMH of Diabetes presenting with weakness and fall. Recent discharge 08/25/18 due to sepsis with gram positive bacteremia. GI consultation for symptomatic acute on chronic anemia in setting of weakness, fall, and unin tentional weight loss. No prior EGD or colonoscopy. Plan: -POD0(11/09) left thoracentesis-purulent, empyema -cardiology clearance obtained for EGD -respiratory optimization with plan for EGD Monday to evaluate anemia and suspicion for esophageal mass -H/H with appropriate response to transfusion, continue to monitor -no signs of overt GI bleed -continue PPI IV BID -clear liquid diet as toelrated, NPO after midnight on Monday for EGD Monday -will follow clinical course <Ramiro Aaron - Last Filed: 11/09/18 11:51> Objective - Vital Signs/Intake and Output Vital Signs (last 24 hours): Temp Pulse Resp BP Pulse Ox 98.2 F 78 19 105/69 97 11/09/18 08:00 11/09/18 11:02 11/09/18 10:04 11/09/18 11:02 11/09/18 11:02 Intake and Output: 11/09/18 11/09/18 06:59 18:59 Intake Total 3274 725 Output Total 800 100 Balance 2474 625 - Medications Medications: Current Medications Acetaminophen (Tylenol 325mg Tab) 650 mg PO Q6 PRN PRN Reason: Fever >100.4 F Dextrose (Dextrose 50% Inj) 0 ml IV STAT PRN; Protocol PRN Reason: Hypoglycemia Protocol Dextrose (Glutose 15) 0 gm PO ONCE PRN; Protocol PRN Reason: Hypoglycemia Protocol Folic Acid (Folic Acid) 1 mg PO DAILY [facility] Last Admin: 11/09/18 11:38 Dose: 1 mg Glucagon (Glucagen Diagnostic Kit) 0 mg IM STAT PRN; Protocol PRN Reason: Hypoglycemia Protocol Dextrose (Dextrose 5% In Water 1000 Ml) 1,000 mls @ 0 mls/hr IV .Q0M PRN; Protocol PRN Reason: Hypoglycemia Protocol Sodium Chloride (Sodium Chloride 0.9%) 1,000 mls @ 100 mls/hr IV .Q10H [facility] Last Admin: 11/09/18 11:38 Dose: Not Given Piperacillin Sod/Tazobactam Sod (Zosyn 3.375 Gm Iv Premix) 3.375 gm in 50 mls @ 100 mls/hr IVPB Q6H [facility]; Protocol Last Admin: 11/09/18 07:35 Dose: 100 mls/hr Vancomycin/Sodium Chloride (Vancomycin 1 Gm/Ns 200 Ml) 1 gm in 200 mls @ 133.333 mls/hr IVPB Q12H [facility]; Protocol Stop: 11/14/18 02:31 Last Admin: 11/09/18 01:50 Dose: 133.333 mls/hr Insulin Human Regular (Novolin R) 0 unit SC Q6 [facility]; Protocol Last Admin: 11/09/18 06:14 Dose: Not Given Multivitamins (Hexavitamin) 1 tab PO DAILY [facility] Last Admin: 11/09/18 11:29 Dose: 1 tab Nicotine (Nicoderm Cq) 1 patch TD DAILY [facility] Last Admin: 11/09/18 09:54 Dose: 1 patch Pantoprazole Sodium (Protonix Inj) 40 mg IVP Q12H [facility] Last Admin: 11/09/18 11:28 Dose: 40 mg Thiamine HCl (Vitamin B1 Tab) 100 mg PO DAILY [facility] Last Admin: 11/09/18 11:29 Dose: 100 mg - Labs Labs: 11/09/18 06:02 11/09/18 05:45 PT 13.6 SECONDS (9.7-12.2) H D 11/09/18 05:45 INR 1.2 D 11/09/18 05:45 APTT 28 SECONDS (21-34) 11/09/18 05:45 Attending/Attestation - Attestation I have personally seen and examined this patient.: Yes I have fully participated in the care of the patient.: Yes I have reviewed all pertinent clinical information, including history, physical exam and plan: Yes Notes (Text): 11/09/18 11:48 I have seen and examined patient with GI fellow. No acute events overnight, he is seen resting in bed comfortably. s/p thoracentesis with chest tube placement for suspected empyema. He denies abdominal pain, nausea, vomiting. DM Sepsis - empyema Iron deficiency anemia CT imaging with concern for GEJ lesion Weight loss - Liquid diet as tolerated - Continue with antibiotic therapy, follow up fluid results from thoracentesis - H/H stable, s/p PRBC transfusion, continue to monitor - Continue with PPI therapy - Will plan for EGD on monday for further evaluation of suspected GEJ lesion - Will continue to monitor patient clinical course
--- NOTE | 2018-11-09 11:10 | CARD ---
APPROVED REPORT Date of service: 11/08/2018 EKG Measurement Heart [id number] <Conclusion> Normal sinus rhythm ST & T wave abnormality, consider inferior ischemia Abnormal ECG
[2018-11-09] MEDS: Multiple Vitamins Tab PO SCH (11:29)
--- NOTE | 2018-11-09 11:48 | US ---
PROCEDURE: Date of procedure: 11/09/2018 Procedure: 1. Placement of a left chest tube with ultrasound guidance 2. Ultrasound guidance for procedure Medications: 6cc 1 percent lidocaine HISTORY: Large loculated left pleural effusion TECHNIQUE: Following informed consent and procedure time-out, the patient's left chest was marked, prepped and draped in the usual sterile fashion. Ultrasound showed a large loculated complex left pleural effusion. After the skin was anesthetized with 1% lidocaine and the Pt was sedated by the anesthesiologist, a Migel catheter was advanced under ultrasound guidance into the pleural space. The catheter was exchanged over an 035 guidewire and tract was dilated to accommodate a 8 [place] pigtail catheter formed within the pleural space. There is return of foul smelling purulent fluid. The catheter was secured to patient's skin. A xeroform dressing was applied. The catheter was then attached to a pleurovac. Postprocedure x-ray showed a left chest tube. IMPRESSION: Placement of an 8 [place] left chest tube. There were no immediate complications.
--- NOTE | 2018-11-09 11:55 | CP.CCUPN ---
<Stevenson Garica - Last Filed: 11/09/18 19:06> CCU Subjective - Physician Review Subjective (Free Text): ICU Progress Note for Dr. Knight Pt seen and examined at bedside this am, denies any acute complaints, states he feels better. No acute events reported by staff overnight. HR and BP improved. NPO today for L-sided thoracentesis to be performed by IR. CCU Objective - Vital Signs / Intake & Output Vital Signs (Last 4 hours): Vital Signs Temp Pulse Resp BP Pulse Ox 11/09/18 11:02 78 105/69 97 11/09/18 11:00 79 97 11/09/18 10:04 88 19 99/60 L 97 11/09/18 10:00 82 18 96 11/09/18 09:02 76 24 105/65 95 11/09/18 08:02 110/67 11/09/18 08:00 98.2 F 77 26 H 96 Intake and Output (Last 8hrs): Intake & Output 11/08/18 11/09/18 11/09/18 22:59 06:59 14:59 Intake Total 2660 1484 725 Output Total 550 600 100 Balance 2110 884 625 Weight 112 lb 6.972 oz 119 lb 5 oz Intake: Intake, IV Amount 1025 600 725 Left Forearm 650 600 600 Left Hand 375 125 Oral 360 350 0 Blood Product 1275 534 Red Blood Cells Cpd As1 325 Lr Unit [id number] Red Blood Cells Cpd As1 325 Lr Unit [id number] Red Blood Cells Cpd As1 0 Lr Unit [id number] Output: Urine 550 600 100 Urine, Voided 550 600 100 Other: # Voids Urine, Voided 1 # Bowel Movements 0 - Physical Exam Head: Positive for: Atraumatic, Normocephalic Pupils: Positive for: PERRL Extroacular Muscles: Positive for: EOMI Mouth: Positive for: Moist Mucous Membranes Respiratory/Chest: Positive for: Clear to Auscultation, Good Air Exchange. Negative for: Respiratory Distress, Accessory Muscle Use, Wheezes, Rales, Rhonchi Cardiovascular: Positive for: Regular Rate and Rhythm, Normal S1, S2. Negative for: Murmurs, Rub, Gallop Abdomen: Positive for: Normal Bowel Sounds. Negative for: Tenderness, Distention, Mass/Organomegaly Lower Extremity: Positive for: Normal Inspection, NORMAL PULSES, Neurovascularly Intact, Capillary Refill < 2 s. Negative for: Edema Neurological: Positive for: GCS=15, CN II-XII Intact, Speech Normal Skin: Positive for: Warm, Dry Psychiatric: Positive for: Alert, Oriented x 3 - Medications Active Medications: Active Medications Generic Name Dose Route Start Last Admin Trade Name Freq PRN Reason Stop Dose Admin Acetaminophen 650 mg 11/08/18 18:40 Tylenol 325mg Tab PO Q6 PRN Fever >100.4 F Dextrose 0 ml 11/08/18 14:57 Dextrose 50% Inj IV STAT PRN Hypoglycemia Protocol Protocol Dextrose 0 gm 11/08/18 14:57 Glutose 15 PO ONCE PRN Hypoglycemia Protocol Protocol Folic Acid 1 mg 11/09/18 10:00 11/09/18 11:38 Folic Acid PO 1 mg DAILY EDER Administration Glucagon 0 mg 11/08/18 14:57 Glucagen Diagnostic Kit IM STAT PRN Hypoglycemia Protocol Protocol Dextrose 1,000 mls @ 0 mls/hr 11/08/18 14:57 Dextrose 5% In Water 1000 Ml IV .Q0M PRN Hypoglycemia Protocol Protocol Per Protocol Sodium Chloride 1,000 mls @ 100 mls/hr 11/08/18 15:30 11/09/18 11:38 Sodium Chloride 0.9% IV Not Given .Q10H EEDR Piperacillin Sod/Tazobactam Sod 3.375 gm in 50 mls @ 100 mls/hr 11/08/18 20:30 11/09/18 07:35 Zosyn 3.375 Gm Iv Premix IVPB 100 mls/hr Q6H EDER Administration Protocol Vancomycin/Sodium Chloride 1 gm in 200 mls @ 133.333 mls/hr 11/09/18 02:30 11/09/18 01:50 Vancomycin 1 Gm/Ns 200 Ml IVPB 11/14/18 02:31 133.333 mls/hr Q12H EDER Administration Protocol Insulin Human Regular 0 unit 11/08/18 18:00 11/09/18 11:50 Novolin R SC 8 u Q6 EDER Administration Protocol Multivitamins 1 tab 11/09/18 10:00 11/09/18 11:29 Hexavitamin PO 1 tab DAILY EDER Administration Nicotine 1 patch 11/09/18 10:00 11/09/18 09:54 Nicoderm Cq TD 1 patch DAILY EDER Administration Pantoprazole Sodium 40 mg 11/09/18 10:00 11/09/18 11:28 Protonix Inj IVP 40 mg Q12H EDER Administration Thiamine HCl 100 mg 11/09/18 10:00 11/09/18 11:29 Vitamin B1 Tab PO 100 mg DAILY EDER Administration - Patient Studies Lab Studies: Microbiology Studies 11/08/18 14:07 Urine Culture - Preliminary Urine,Catheterized Gram Positive Cocci 11/08/18 14:13 Blood Culture - Preliminary Blood Gram Negative Gregg Gram Stain - Final Lab Studies 11/09/18 11/09/18 11/09/18 Range/Units 11:45 06:02 06:02 WBC 14.9 H (4.8-10.8) K/uL RBC 3.31 L (4.40-5.90) Mil/uL Hgb 8.6 L D (12.0-18.0) g/dL Hct 27.1 L (35.0-51.0) % MCV 81.8 (80.0-94.0) fL MCH 26.1 L (27.0-31.0) pg MCHC 31.9 L (33.0-37.0) g/dL RDW 17.0 H (11.5-14.5) % Plt Count 252 (130-400) K/uL MPV 8.2 (7.2-11.7) fL Neut % (Auto) 84.1 H (50.0-75.0) % Lymph % (Auto) 5.8 L (20.0-40.0) % [place] % (Auto) 9.1 (0.0-10.0) % Eos % (Auto) 0.7 (0.0-4.0) % Baso % (Auto) 0.3 (0.0-2.0) % Neut # (Auto) 12.5 H (1.8-7.0) K/uL Lymph # (Auto) 0.9 L (1.0-4.3) K/uL [place] # (Auto) 1.4 H (0.0-0.8) K/uL Eos # (Auto) 0.1 (0.0-0.7) K/uL Baso # (Auto) 0.0 (0.0-0.2) K/uL Neutrophils % (Manual) 62 (50-75) % Band Neutrophils % 18 H* (0-2) % Lymphocytes % (Manual) 10 L (20-40) % Monocytes % (Manual) 9 (0-10) % Eosinophils % (Manual) 1 (0-4) % Toxic Granulation Present Platelet Estimate Normal (NORMAL) Hypochromasia (manual) Slight Anisocytosis (manual) Slight Ovalocytes Slight Smear Path Review Retic Count (0.5-1.5) % PT (9.7-12.2) SECONDS INR APTT (21-34) SECONDS pO2 (30-55) mm/Hg VBG pH (7.32-7.43) VBG pCO2 (40-60) mmHg VBG HCO3 mmol/L VBG Total CO2 (22-28) mmol/L VBG O2 Sat (Calc) (40-65) % VBG Base Excess (0.0-2.0) mmol/L VBG Potassium (3.6-5.2) mmol/L Sodium (132-148) mmol/l Chloride (98-107) mmol/L Glucose (75-110) mg/dl Lactate (0.7-2.1) mmol/L Crit Value Called To Crit Value Called By Crit Value Read Back Blood Gas Notified Time Potassium (3.6-5.2) mmol/L Carbon Dioxide (22-30) mmol/L Anion Gap (10-20) BUN (9-20) mg/dL Creatinine (0.8-1.5) mg/dL Est GFR ( Amer) Est GFR (Non-Af Amer) POC Glucose (mg/dL) 365 H (65-110) mg/dL Random Glucose (75-110) mg/dL Hemoglobin A1c 8.1 H D (4.2-6.5) % Calcium (8.6-10.4) mg/dl Phosphorus (2.5-4.5) mg/dL Magnesium (1.6-2.3) mg/dL Iron (49-181) ug/dL TIBC (250-450) ug/dL % Saturation (20-55) Transferrin (206-381) mg/dL Ferritin ng/mL Total Bilirubin (0.2-1.3) mg/dL AST (17-59) U/L ALT (21-72) U/L Alkaline Phosphatase (38-126) U/L Ammonia (9-33) umol/L Troponin I (0.00-0.120) ng/mL NT-Pro-B Natriuret Pep (0-900) pg/mL Total Protein (6.3-8.3) g/dL Albumin (3.5-5.0) g/dL Globulin (2.2-3.9) gm/dL Albumin/Globulin Ratio (1.0-2.1) Triglycerides (0-149) mg/dL Cholesterol (0-199) mg/dL LDL Cholesterol Direct (0-129) mg/dL HDL Cholesterol (30-70) mg/dL Vitamin B12 (239-931) pg/mL Folate ng/mL Venous Blood Potassium (3.6-5.2) mmol/L Urine Color (YELLOW) Urine Clarity (Clear) Urine pH (5.0-8.0) Ur Specific [place] (1.003-1.030) Urine Protein (NEGATIVE) mg/dL Urine Glucose (UA) (Normal) mg/dL Urine Ketones (NEGATIVE) mg/dL Urine Blood (NEGATIVE) Urine Nitrate (NEGATIVE) Urine Bilirubin (NEGATIVE) Urine Urobilinogen (0.2-1.0) mg/dL Ur Leukocyte Esterase (Negative) Fausto/uL Urine WBC (Auto) (0-5) /hpf Urine RBC (Auto) (0-3) /hpf Ur Squamous Epith Cells (0-5) /hpf Urine Bacteria (<OCC) Hyaline Casts (0-2) /lpf Stool Occult Blood (NEGATIVE) Alcohol, Quantitative (0-10) mg/dl B-Hydroxybutyrate (0.02-0.27) mM Hepatitis A IgM Ab (NEGATIVE) Hep Bs Antigen (NEGATIVE) Hep B Core IgM Ab (NEGATIVE) Hepatitis C Antibody (NEGATIVE) Blood Type Blood Type Confirm Antibody Screen 11/09/18 11/09/18 11/09/18 Range/Units 05:45 05:45 05:06 WBC (4.8-10.8) K/uL RBC (4.40-5.90) Mil/uL Hgb (12.0-18.0) g/dL Hct (35.0-51.0) % MCV (80.0-94.0) fL MCH (27.0-31.0) pg MCHC (33.0-37.0) g/dL RDW (11.5-14.5) % Plt Count (130-400) K/uL MPV (7.2-11.7) fL Neut % (Auto) (50.0-75.0) % Lymph % (Auto) (20.0-40.0) % [place] % (Auto) (0.0-10.0) % Eos % (Auto) (0.0-4.0) % Baso % (Auto) (0.0-2.0) % Neut # (Auto) (1.8-7.0) K/uL Lymph # (Auto) (1.0-4.3) K/uL [place] # (Auto) (0.0-0.8) K/uL Eos # (Auto) (0.0-0.7) K/uL Baso # (Auto) (0.0-0.2) K/uL Neutrophils % (Manual) (50-75) % Band Neutrophils % (0-2) % Lymphocytes % (Manual) (20-40) % Monocytes % (Manual) (0-10) % Eosinophils % (Manual) (0-4) % Toxic Granulation Platelet Estimate (NORMAL) Hypochromasia (manual) Anisocytosis (manual) Ovalocytes Smear Path Review Retic Count (0.5-1.5) % PT 13.6 H D (9.7-12.2) SECONDS INR 1.2 D APTT 28 (21-34) SECONDS pO2 (30-55) mm/Hg VBG pH (7.32-7.43) VBG pCO2 (40-60) mmHg VBG HCO3 mmol/L VBG Total CO2 (22-28) mmol/L VBG O2 Sat (Calc) (40-65) % VBG Base Excess (0.0-2.0) mmol/L VBG Potassium (3.6-5.2) mmol/L Sodium 137 (132-148) mmol/l Chloride 107 (98-107) mmol/L Glucose (75-110) mg/dl Lactate (0.7-2.1) mmol/L Crit Value Called To Crit Value Called By Crit Value Read Back Blood Gas Notified Time Potassium 3.6 (3.6-5.2) mmol/L Carbon Dioxide 24 (22-30) mmol/L Anion Gap 9 L (10-20) BUN 17 (9-20) mg/dL Creatinine 0.5 L (0.8-1.5) mg/dL Est GFR ( Amer) > 60 Est GFR (Non-Af Amer) > 60 POC Glucose (mg/dL) 292 H (65-110) mg/dL Random Glucose 249 H (75-110) mg/dL Hemoglobin A1c (4.2-6.5) % Calcium 10.3 (8.6-10.4) mg/dl Phosphorus 2.1 L (2.5-4.5) mg/dL Magnesium 2.1 (1.6-2.3) mg/dL Iron (49-181) ug/dL TIBC (250-450) ug/dL % Saturation (20-55) Transferrin (206-381) mg/dL Ferritin ng/mL Total Bilirubin 1.0 (0.2-1.3) mg/dL AST 13 L (17-59) U/L ALT 15 L D (21-72) U/L Alkaline Phosphatase 82 (38-126) U/L Ammonia (9-33) umol/L Troponin I (0.00-0.120) ng/mL NT-Pro-B Natriuret Pep (0-900) pg/mL Total Protein 5.3 L (6.3-8.3) g/dL Albumin 2.2 L D (3.5-5.0) g/dL Globulin 3.2 (2.2-3.9) gm/dL Albumin/Globulin Ratio 0.7 L (1.0-2.1) Triglycerides 76 (0-149) mg/dL Cholesterol < 50 (0-199) mg/dL LDL Cholesterol Direct 36 (0-129) mg/dL HDL Cholesterol 16 L (30-70) mg/dL Vitamin B12 (239-931) pg/mL Folate ng/mL Venous Blood Potassium (3.6-5.2) mmol/L Urine Color (YELLOW) Urine Clarity (Clear) Urine pH (5.0-8.0) Ur Specific [place] (1.003-1.030) Urine Protein (NEGATIVE) mg/dL Urine Glucose (UA) (Normal) mg/dL Urine Ketones (NEGATIVE) mg/dL Urine Blood (NEGATIVE) Urine Nitrate (NEGATIVE) Urine Bilirubin (NEGATIVE) Urine Urobilinogen (0.2-1.0) mg/dL Ur Leukocyte Esterase (Negative) Fausto/uL Urine WBC (Auto) (0-5) /hpf Urine RBC (Auto) (0-3) /hpf Ur Squamous Epith Cells (0-5) /hpf Urine Bacteria (<OCC) Hyaline Casts (0-2) /lpf Stool Occult Blood (NEGATIVE) Alcohol, Quantitative (0-10) mg/dl B-Hydroxybutyrate (0.02-0.27) mM Hepatitis A IgM Ab (NEGATIVE) Hep Bs Antigen (NEGATIVE) Hep B Core IgM Ab (NEGATIVE) Hepatitis C Antibody (NEGATIVE) Blood Type Blood Type Confirm Antibody Screen 11/09/18 11/08/18 11/08/18 Range/Units 00:01 23:58 21:43 WBC (4.8-10.8) K/uL RBC (4.40-5.90) Mil/uL Hgb (12.0-18.0) g/dL Hct (35.0-51.0) % MCV (80.0-94.0) fL MCH (27.0-31.0) pg MCHC (33.0-37.0) g/dL RDW (11.5-14.5) % Plt Count (130-400) K/uL MPV (7.2-11.7) fL Neut % (Auto) (50.0-75.0) % Lymph % (Auto) (20.0-40.0) % [place] % (Auto) (0.0-10.0) % Eos % (Auto) (0.0-4.0) % Baso % (Auto) (0.0-2.0) % Neut # (Auto) (1.8-7.0) K/uL Lymph # (Auto) (1.0-4.3) K/uL [place] # (Auto) (0.0-0.8) K/uL Eos # (Auto) (0.0-0.7) K/uL Baso # (Auto) (0.0-0.2) K/uL Neutrophils % (Manual) (50-75) % Band Neutrophils % (0-2) % Lymphocytes % (Manual) (20-40) % Monocytes % (Manual) (0-10) % Eosinophils % (Manual) (0-4) % Toxic Granulation Platelet Estimate (NORMAL) Hypochromasia (manual) Anisocytosis (manual) Ovalocytes Smear Path Review Retic Count (0.5-1.5) % PT (9.7-12.2) SECONDS INR APTT (21-34) SECONDS pO2 (30-55) mm/Hg VBG pH (7.32-7.43) VBG pCO2 (40-60) mmHg VBG HCO3 mmol/L VBG Total CO2 (22-28) mmol/L VBG O2 Sat (Calc) (40-65) % VBG Base Excess (0.0-2.0) mmol/L VBG Potassium (3.6-5.2) mmol/L Sodium (132-148) mmol/l Chloride (98-107) mmol/L Glucose (75-110) mg/dl Lactate (0.7-2.1) mmol/L Crit Value Called To Crit Value Called By Crit Value Read Back Blood Gas Notified Time Potassium (3.6-5.2) mmol/L Carbon Dioxide (22-30) mmol/L Anion Gap (10-20) BUN (9-20) mg/dL Creatinine (0.8-1.5) mg/dL Est GFR ( Amer) Est GFR (Non-Af Amer) POC Glucose (mg/dL) 424 H* 406 H* 329 H (65-110) mg/dL Random Glucose (75-110) mg/dL Hemoglobin A1c (4.2-6.5) % Calcium (8.6-10.4) mg/dl Phosphorus (2.5-4.5) mg/dL Magnesium (1.6-2.3) mg/dL Iron (49-181) ug/dL TIBC (250-450) ug/dL % Saturation (20-55) Transferrin (206-381) mg/dL Ferritin ng/mL Total Bilirubin (0.2-1.3) mg/dL AST (17-59) U/L ALT (21-72) U/L Alkaline Phosphatase (38-126) U/L Ammonia (9-33) umol/L Troponin I (0.00-0.120) ng/mL NT-Pro-B Natriuret Pep (0-900) pg/mL Total Protein (6.3-8.3) g/dL Albumin (3.5-5.0) g/dL Globulin (2.2-3.9) gm/dL Albumin/Globulin Ratio (1.0-2.1) Triglycerides (0-149) mg/dL Cholesterol (0-199) mg/dL LDL Cholesterol Direct (0-129) mg/dL HDL Cholesterol (30-70) mg/dL Vitamin B12 (239-931) pg/mL Folate ng/mL Venous Blood Potassium (3.6-5.2) mmol/L Urine Color (YELLOW) Urine Clarity (Clear) Urine pH (5.0-8.0) Ur Specific [place] (1.003-1.030) Urine Protein (NEGATIVE) mg/dL Urine Glucose (UA) (Normal) mg/dL Urine Ketones (NEGATIVE) mg/dL Urine Blood (NEGATIVE) Urine Nitrate (NEGATIVE) Urine Bilirubin (NEGATIVE) Urine Urobilinogen (0.2-1.0) mg/dL Ur Leukocyte Esterase (Negative) Fausto/uL Urine WBC (Auto) (0-5) /hpf Urine RBC (Auto) (0-3) /hpf Ur Squamous Epith Cells (0-5) /hpf Urine Bacteria (<OCC) Hyaline Casts (0-2) /lpf Stool Occult Blood (NEGATIVE) Alcohol, Quantitative (0-10) mg/dl B-Hydroxybutyrate (0.02-0.27) mM Hepatitis A IgM Ab (NEGATIVE) Hep Bs Antigen (NEGATIVE) Hep B Core IgM Ab (NEGATIVE) Hepatitis C Antibody (NEGATIVE) Blood Type Blood Type Confirm Antibody Screen 11/08/18 11/08/18 11/08/18 Range/Units 18:21 18:09 16:10 WBC (4.8-10.8) K/uL RBC (4.40-5.90) Mil/uL Hgb (12.0-18.0) g/dL Hct (35.0-51.0) % MCV (80.0-94.0) fL MCH (27.0-31.0) pg MCHC (33.0-37.0) g/dL RDW (11.5-14.5) % Plt Count (130-400) K/uL MPV (7.2-11.7) fL Neut % (Auto) (50.0-75.0) % Lymph % (Auto) (20.0-40.0) % [place] % (Auto) (0.0-10.0) % Eos % (Auto) (0.0-4.0) % Baso % (Auto) (0.0-2.0) % Neut # (Auto) (1.8-7.0) K/uL Lymph # (Auto) (1.0-4.3) K/uL [place] # (Auto) (0.0-0.8) K/uL Eos # (Auto) (0.0-0.7) K/uL Baso # (Auto) (0.0-0.2) K/uL Neutrophils % (Manual) (50-75) % Band Neutrophils % (0-2) % Lymphocytes % (Manual) (20-40) % Monocytes % (Manual) (0-10) % Eosinophils % (Manual) (0-4) % Toxic Granulation Platelet Estimate (NORMAL) Hypochromasia (manual) Anisocytosis (manual) Ovalocytes Smear Path Review Retic Count 2.2 H (0.5-1.5) % PT (9.7-12.2) SECONDS INR APTT (21-34) SECONDS pO2 (30-55) mm/Hg VBG pH (7.32-7.43) VBG pCO2 (40-60) mmHg VBG HCO3 mmol/L VBG Total CO2 (22-28) mmol/L VBG O2 Sat (Calc) (40-65) % VBG Base Excess (0.0-2.0) mmol/L VBG Potassium (3.6-5.2) mmol/L Sodium (132-148) mmol/l Chloride (98-107) mmol/L Glucose (75-110) mg/dl Lactate (0.7-2.1) mmol/L Crit Value Called To Crit Value Called By Crit Value Read Back Blood Gas Notified Time Potassium (3.6-5.2) mmol/L Carbon Dioxide (22-30) mmol/L Anion Gap (10-20) BUN (9-20) mg/dL Creatinine (0.8-1.5) mg/dL Est GFR ( Amer) Est GFR (Non-Af Amer) POC Glucose (mg/dL) 213 H 300 H (65-110) mg/dL Random Glucose (75-110) mg/dL Hemoglobin A1c (4.2-6.5) % Calcium (8.6-10.4) mg/dl Phosphorus (2.5-4.5) mg/dL Magnesium (1.6-2.3) mg/dL Iron (49-181) ug/dL TIBC (250-450) ug/dL % Saturation (20-55) Transferrin (206-381) mg/dL Ferritin ng/mL Total Bilirubin (0.2-1.3) mg/dL AST (17-59) U/L ALT (21-72) U/L Alkaline Phosphatase (38-126) U/L Ammonia (9-33) umol/L Troponin I (0.00-0.120) ng/mL NT-Pro-B Natriuret Pep (0-900) pg/mL Total Protein (6.3-8.3) g/dL Albumin (3.5-5.0) g/dL Globulin (2.2-3.9) gm/dL Albumin/Globulin Ratio (1.0-2.1) Triglycerides (0-149) mg/dL Cholesterol (0-199) mg/dL LDL Cholesterol Direct (0-129) mg/dL HDL Cholesterol (30-70) mg/dL Vitamin B12 (239-931) pg/mL Folate ng/mL Venous Blood Potassium (3.6-5.2) mmol/L Urine Color (YELLOW) Urine Clarity (Clear) Urine pH (5.0-8.0) Ur Specific [place] (1.003-1.030) Urine Protein (NEGATIVE) mg/dL Urine Glucose (UA) (Normal) mg/dL Urine Ketones (NEGATIVE) mg/dL Urine Blood (NEGATIVE) Urine Nitrate (NEGATIVE) Urine Bilirubin (NEGATIVE) Urine Urobilinogen (0.2-1.0) mg/dL Ur Leukocyte Esterase (Negative) Fausto/uL Urine WBC (Auto) (0-5) /hpf Urine RBC (Auto) (0-3) /hpf Ur Squamous Epith Cells (0-5) /hpf Urine Bacteria (<OCC) Hyaline Casts (0-2) /lpf Stool Occult Blood (NEGATIVE) Alcohol, Quantitative (0-10) mg/dl B-Hydroxybutyrate (0.02-0.27) mM Hepatitis A IgM Ab (NEGATIVE) Hep Bs Antigen (NEGATIVE) Hep B Core IgM Ab (NEGATIVE) Hepatitis C Antibody (NEGATIVE) Blood Type Blood Type Confirm Antibody Screen 11/08/18 11/08/18 11/08/18 Range/Units 16:07 16:07 16:07 WBC (4.8-10.8) K/uL RBC (4.40-5.90) Mil/uL Hgb (12.0-18.0) g/dL Hct (35.0-51.0) % MCV (80.0-94.0) fL MCH (27.0-31.0) pg MCHC (33.0-37.0) g/dL RDW (11.5-14.5) % Plt Count (130-400) K/uL MPV (7.2-11.7) fL Neut % (Auto) (50.0-75.0) % Lymph % (Auto) (20.0-40.0) % [place] % (Auto) (0.0-10.0) % Eos % (Auto) (0.0-4.0) % Baso % (Auto) (0.0-2.0) % Neut # (Auto) (1.8-7.0) K/uL Lymph # (Auto) (1.0-4.3) K/uL [place] # (Auto) (0.0-0.8) K/uL Eos # (Auto) (0.0-0.7) K/uL Baso # (Auto) (0.0-0.2) K/uL Neutrophils % (Manual) (50-75) % Band Neutrophils % (0-2) % Lymphocytes % (Manual) (20-40) % Monocytes % (Manual) (0-10) % Eosinophils % (Manual) (0-4) % Toxic Granulation Platelet Estimate (NORMAL) Hypochromasia (manual) Anisocytosis (manual) Ovalocytes Smear Path Review Retic Count (0.5-1.5) % PT (9.7-12.2) SECONDS INR APTT (21-34) SECONDS pO2 (30-55) mm/Hg VBG pH (7.32-7.43) VBG pCO2 (40-60) mmHg VBG HCO3 mmol/L VBG Total CO2 (22-28) mmol/L VBG O2 Sat (Calc) (40-65) % VBG Base Excess (0.0-2.0) mmol/L VBG Potassium (3.6-5.2) mmol/L Sodium (132-148) mmol/l Chloride (98-107) mmol/L Glucose (75-110) mg/dl Lactate (0.7-2.1) mmol/L Crit Value Called To Crit Value Called By Crit Value Read Back Blood Gas Notified Time Potassium (3.6-5.2) mmol/L Carbon Dioxide (22-30) mmol/L Anion Gap (10-20) BUN (9-20) mg/dL Creatinine (0.8-1.5) mg/dL Est GFR ( Amer) Est GFR (Non-Af Amer) POC Glucose (mg/dL) (65-110) mg/dL Random Glucose (75-110) mg/dL Hemoglobin A1c (4.2-6.5) % Calcium (8.6-10.4) mg/dl Phosphorus (2.5-4.5) mg/dL Magnesium (1.6-2.3) mg/dL Iron (49-181) ug/dL TIBC (250-450) ug/dL % Saturation (20-55) Transferrin < 80.00 L (206-381) mg/dL Ferritin ng/mL Total Bilirubin (0.2-1.3) mg/dL AST (17-59) U/L ALT (21-72) U/L Alkaline Phosphatase (38-126) U/L Ammonia 29 (9-33) umol/L Troponin I (0.00-0.120) ng/mL NT-Pro-B Natriuret Pep (0-900) pg/mL Total Protein (6.3-8.3) g/dL Albumin (3.5-5.0) g/dL Globulin (2.2-3.9) gm/dL Albumin/Globulin Ratio (1.0-2.1) Triglycerides (0-149) mg/dL Cholesterol (0-199) mg/dL LDL Cholesterol Direct (0-129) mg/dL HDL Cholesterol (30-70) mg/dL Vitamin B12 (239-931) pg/mL Folate ng/mL Venous Blood Potassium (3.6-5.2) mmol/L Urine Color (YELLOW) Urine Clarity (Clear) Urine pH (5.0-8.0) Ur Specific [place] (1.003-1.030) Urine Protein (NEGATIVE) mg/dL Urine Glucose (UA) (Normal) mg/dL Urine Ketones (NEGATIVE) mg/dL Urine Blood (NEGATIVE) Urine Nitrate (NEGATIVE) Urine Bilirubin (NEGATIVE) Urine Urobilinogen (0.2-1.0) mg/dL Ur Leukocyte Esterase (Negative) Fausto/uL Urine WBC (Auto) (0-5) /hpf Urine RBC (Auto) (0-3) /hpf Ur Squamous Epith Cells (0-5) /hpf Urine Bacteria (<OCC) Hyaline Casts (0-2) /lpf Stool Occult Blood (NEGATIVE) Alcohol, Quantitative (0-10) mg/dl B-Hydroxybutyrate (0.02-0.27) mM Hepatitis A IgM Ab Negative (NEGATIVE) Hep Bs Antigen Negative (NEGATIVE) Hep B Core IgM Ab Negative (NEGATIVE) Hepatitis C Antibody Negative (NEGATIVE) Blood Type Blood Type Confirm Antibody Screen 11/08/18 11/08/18 11/08/18 Range/Units 16:07 16:07 14:55 WBC (4.8-10.8) K/uL RBC (4.40-5.90) Mil/uL Hgb (12.0-18.0) g/dL Hct (35.0-51.0) % MCV (80.0-94.0) fL MCH (27.0-31.0) pg MCHC (33.0-37.0) g/dL RDW (11.5-14.5) % Plt Count (130-400) K/uL MPV (7.2-11.7) fL Neut % (Auto) (50.0-75.0) % Lymph % (Auto) (20.0-40.0) % [place] % (Auto) (0.0-10.0) % Eos % (Auto) (0.0-4.0) % Baso % (Auto) (0.0-2.0) % Neut # (Auto) (1.8-7.0) K/uL Lymph # (Auto) (1.0-4.3) K/uL [place] # (Auto) (0.0-0.8) K/uL Eos # (Auto) (0.0-0.7) K/uL Baso # (Auto) (0.0-0.2) K/uL Neutrophils % (Manual) (50-75) % Band Neutrophils % (0-2) % Lymphocytes % (Manual) (20-40) % Monocytes % (Manual) (0-10) % Eosinophils % (Manual) (0-4) % Toxic Granulation Platelet Estimate (NORMAL) Hypochromasia (manual) Anisocytosis (manual) Ovalocytes Smear Path Review Retic Count (0.5-1.5) % PT (9.7-12.2) SECONDS INR APTT (21-34) SECONDS pO2 73 H (30-55) mm/Hg VBG pH 7.34 (7.32-7.43) VBG pCO2 23 L (40-60) mmHg VBG HCO3 15.9 mmol/L VBG Total CO2 13.1 L (22-28) mmol/L VBG O2 Sat (Calc) 94.4 H (40-65) % VBG Base Excess -11.4 L (0.0-2.0) mmol/L VBG Potassium 2.0 L* (3.6-5.2) mmol/L Sodium 135.0 (132-148) mmol/l Chloride 104.0 (98-107) mmol/L Glucose 244 H (75-110) mg/dl Lactate 1.7 (0.7-2.1) mmol/L Crit Value Called To Dr. kumar Crit Value Called By Afsaneh perez rcp Crit Value Read Back Y Blood Gas Notified Time 1505 Potassium (3.6-5.2) mmol/L Carbon Dioxide (22-30) mmol/L Anion Gap (10-20) BUN (9-20) mg/dL Creatinine (0.8-1.5) mg/dL Est GFR ( Amer) Est GFR (Non-Af Amer) POC Glucose (mg/dL) (65-110) mg/dL Random Glucose (75-110) mg/dL Hemoglobin A1c (4.2-6.5) % Calcium (8.6-10.4) mg/dl Phosphorus (2.5-4.5) mg/dL Magnesium (1.6-2.3) mg/dL Iron < 10 L (49-181) ug/dL TIBC 148 L (250-450) ug/dL % Saturation (20-55) Transferrin (206-381) mg/dL Ferritin 39.5 ng/mL Total Bilirubin (0.2-1.3) mg/dL AST (17-59) U/L ALT (21-72) U/L Alkaline Phosphatase (38-126) U/L Ammonia (9-33) umol/L Troponin I (0.00-0.120) ng/mL NT-Pro-B Natriuret Pep (0-900) pg/mL Total Protein (6.3-8.3) g/dL Albumin (3.5-5.0) g/dL Globulin (2.2-3.9) gm/dL Albumin/Globulin Ratio (1.0-2.1) Triglycerides (0-149) mg/dL Cholesterol (0-199) mg/dL LDL Cholesterol Direct (0-129) mg/dL HDL Cholesterol (30-70) mg/dL Vitamin B12 967 H (239-931) pg/mL Folate 10.5 ng/mL Venous Blood Potassium 2.0 L* (3.6-5.2) mmol/L Urine Color (YELLOW) Urine Clarity (Clear) Urine pH (5.0-8.0) Ur Specific [place] (1.003-1.030) Urine Protein (NEGATIVE) mg/dL Urine Glucose (UA) (Normal) mg/dL Urine Ketones (NEGATIVE) mg/dL Urine Blood (NEGATIVE) Urine Nitrate (NEGATIVE) Urine Bilirubin (NEGATIVE) Urine Urobilinogen (0.2-1.0) mg/dL Ur Leukocyte Esterase (Negative) Fausto/uL Urine WBC (Auto) (0-5) /hpf Urine RBC (Auto) (0-3) /hpf Ur Squamous Epith Cells (0-5) /hpf Urine Bacteria (<OCC) Hyaline Casts (0-2) /lpf Stool Occult Blood (NEGATIVE) Alcohol, Quantitative < 10 (0-10) mg/dl B-Hydroxybutyrate 4.94 H (0.02-0.27) mM Hepatitis A IgM Ab (NEGATIVE) Hep Bs Antigen (NEGATIVE) Hep B Core IgM Ab (NEGATIVE) Hepatitis C Antibody (NEGATIVE) Blood Type Blood Type Confirm Antibody Screen 11/08/18 11/08/18 11/08/18 Range/Units 14:07 13:39 13:39 WBC (4.8-10.8) K/uL RBC (4.40-5.90) Mil/uL Hgb (12.0-18.0) g/dL Hct (35.0-51.0) % MCV (80.0-94.0) fL MCH (27.0-31.0) pg MCHC (33.0-37.0) g/dL RDW (11.5-14.5) % Plt Count (130-400) K/uL MPV (7.2-11.7) fL Neut % (Auto) (50.0-75.0) % Lymph % (Auto) (20.0-40.0) % [place] % (Auto) (0.0-10.0) % Eos % (Auto) (0.0-4.0) % Baso % (Auto) (0.0-2.0) % Neut # (Auto) (1.8-7.0) K/uL Lymph # (Auto) (1.0-4.3) K/uL [place] # (Auto) (0.0-0.8) K/uL Eos # (Auto) (0.0-0.7) K/uL Baso # (Auto) (0.0-0.2) K/uL Neutrophils % (Manual) (50-75) % Band Neutrophils % (0-2) % Lymphocytes % (Manual) (20-40) % Monocytes % (Manual) (0-10) % Eosinophils % (Manual) (0-4) % Toxic Granulation Platelet Estimate (NORMAL) Hypochromasia (manual) Anisocytosis (manual) Ovalocytes Smear Path Review Retic Count (0.5-1.5) % PT (9.7-12.2) SECONDS INR APTT (21-34) SECONDS pO2 (30-55) mm/Hg VBG pH (7.32-7.43) VBG pCO2 (40-60) mmHg VBG HCO3 mmol/L VBG Total CO2 (22-28) mmol/L VBG O2 Sat (Calc) (40-65) % VBG Base Excess (0.0-2.0) mmol/L VBG Potassium (3.6-5.2) mmol/L Sodium (132-148) mmol/l Chloride (98-107) mmol/L Glucose (75-110) mg/dl Lactate (0.7-2.1) mmol/L Crit Value Called To Crit Value Called By Crit Value Read Back Blood Gas Notified Time Potassium (3.6-5.2) mmol/L Carbon Dioxide (22-30) mmol/L Anion Gap (10-20) BUN (9-20) mg/dL Creatinine (0.8-1.5) mg/dL Est GFR ( Amer) Est GFR (Non-Af Amer) POC Glucose (mg/dL) (65-110) mg/dL Random Glucose (75-110) mg/dL Hemoglobin A1c (4.2-6.5) % Calcium (8.6-10.4) mg/dl Phosphorus (2.5-4.5) mg/dL Magnesium (1.6-2.3) mg/dL Iron (49-181) ug/dL TIBC (250-450) ug/dL % Saturation (20-55) Transferrin (206-381) mg/dL Ferritin ng/mL Total Bilirubin (0.2-1.3) mg/dL AST (17-59) U/L ALT (21-72) U/L Alkaline Phosphatase (38-126) U/L Ammonia (9-33) umol/L Troponin I (0.00-0.120) ng/mL NT-Pro-B Natriuret Pep (0-900) pg/mL Total Protein (6.3-8.3) g/dL Albumin (3.5-5.0) g/dL Globulin (2.2-3.9) gm/dL Albumin/Globulin Ratio (1.0-2.1) Triglycerides (0-149) mg/dL Cholesterol (0-199) mg/dL LDL Cholesterol Direct (0-129) mg/dL HDL Cholesterol (30-70) mg/dL Vitamin B12 (239-931) pg/mL Folate ng/mL Venous Blood Potassium (3.6-5.2) mmol/L Urine Color Yellow (YELLOW) Urine Clarity Hazy (Clear) Urine pH 5.0 (5.0-8.0) Ur Specific [place] 1.022 (1.003-1.030) Urine Protein 1+ H (NEGATIVE) mg/dL Urine Glucose (UA) 3+ H (Normal) mg/dL Urine Ketones 2+ H (NEGATIVE) mg/dL Urine Blood Negative (NEGATIVE) Urine Nitrate Negative (NEGATIVE) Urine Bilirubin Negative (NEGATIVE) Urine Urobilinogen Normal (0.2-1.0) mg/dL Ur Leukocyte Esterase Neg (Negative) Fausto/uL Urine WBC (Auto) 8 H (0-5) /hpf Urine RBC (Auto) 2 (0-3) /hpf Ur Squamous Epith Cells < 1 (0-5) /hpf Urine Bacteria Rare (<OCC) Hyaline Casts >20 H (0-2) /lpf Stool Occult Blood Negative (NEGATIVE) Alcohol, Quantitative (0-10) mg/dl B-Hydroxybutyrate (0.02-0.27) mM Hepatitis A IgM Ab (NEGATIVE) Hep Bs Antigen (NEGATIVE) Hep B Core IgM Ab (NEGATIVE) Hepatitis C Antibody (NEGATIVE) Blood Type AB POSITIVE Blood Type Confirm AB POSITIVE Antibody Screen Negative 11/08/18 11/08/18 11/08/18 Range/Units 13:39 13:39 13:39 WBC 17.2 H D (4.8-10.8) K/uL RBC 2.08 L (4.40-5.90) Mil/uL Hgb 5.0 L* D (12.0-18.0) g/dL Hct 16.8 L (35.0-51.0) % MCV 80.7 D (80.0-94.0) fL MCH 23.9 L (27.0-31.0) pg MCHC 29.7 L (33.0-37.0) g/dL RDW 17.8 H (11.5-14.5) % Plt Count 324 (130-400) K/uL MPV 8.2 (7.2-11.7) fL Neut % (Auto) 88.7 H (50.0-75.0) % Lymph % (Auto) 2.8 L (20.0-40.0) % [place] % (Auto) 8.1 (0.0-10.0) % Eos % (Auto) 0.1 (0.0-4.0) % Baso % (Auto) 0.3 (0.0-2.0) % Neut # (Auto) 15.2 H (1.8-7.0) K/uL Lymph # (Auto) 0.5 L (1.0-4.3) K/uL [place] # (Auto) 1.4 H (0.0-0.8) K/uL Eos # (Auto) 0.0 (0.0-0.7) K/uL Baso # (Auto) 0.0 (0.0-0.2) K/uL Neutrophils % (Manual) 74 (50-75) % Band Neutrophils % 10 H (0-2) % Lymphocytes % (Manual) 3 L (20-40) % Monocytes % (Manual) 13 H (0-10) % Eosinophils % (Manual) (0-4) % Toxic Granulation Present Platelet Estimate Normal (NORMAL) Hypochromasia (manual) Moderate Anisocytosis (manual) Slight Ovalocytes Smear Path Review Retic Count (0.5-1.5) % PT 18.7 H (9.7-12.2) SECONDS INR 1.7 APTT 30 (21-34) SECONDS pO2 (30-55) mm/Hg VBG pH (7.32-7.43) VBG pCO2 (40-60) mmHg VBG HCO3 mmol/L VBG Total CO2 (22-28) mmol/L VBG O2 Sat (Calc) (40-65) % VBG Base Excess (0.0-2.0) mmol/L VBG Potassium (3.6-5.2) mmol/L Sodium 138 (132-148) mmol/l Chloride 109 H (98-107) mmol/L Glucose (75-110) mg/dl Lactate (0.7-2.1) mmol/L Crit Value Called To Crit Value Called By Crit Value Read Back Blood Gas Notified Time Potassium 2.6 L (3.6-5.2) mmol/L Carbon Dioxide 16 L (22-30) mmol/L Anion Gap 16 (10-20) BUN 14 (9-20) mg/dL Creatinine 0.5 L (0.8-1.5) mg/dL Est GFR ( Amer) > 60 Est GFR (Non-Af Amer) > 60 POC Glucose (mg/dL) (65-110) mg/dL Random Glucose 307 H D (75-110) mg/dL Hemoglobin A1c (4.2-6.5) % Calcium 7.7 L (8.6-10.4) mg/dl Phosphorus 2.2 L (2.5-4.5) mg/dL Magnesium 1.6 (1.6-2.3) mg/dL Iron (49-181) ug/dL TIBC (250-450) ug/dL % Saturation (20-55) Transferrin (206-381) mg/dL Ferritin ng/mL Total Bilirubin 0.3 (0.2-1.3) mg/dL AST 12 L D (17-59) U/L ALT 11 L D (21-72) U/L Alkaline Phosphatase 74 (38-126) U/L Ammonia (9-33) umol/L Troponin I < 0.0120 (0.00-0.120) ng/mL NT-Pro-B Natriuret Pep 421 (0-900) pg/mL Total Protein 4.5 L (6.3-8.3) g/dL Albumin 1.7 L D (3.5-5.0) g/dL Globulin 2.8 (2.2-3.9) gm/dL Albumin/Globulin Ratio 0.6 L (1.0-2.1) Triglycerides (0-149) mg/dL Cholesterol (0-199) mg/dL LDL Cholesterol Direct (0-129) mg/dL HDL Cholesterol (30-70) mg/dL Vitamin B12 (239-931) pg/mL Folate ng/mL Venous Blood Potassium (3.6-5.2) mmol/L Urine Color (YELLOW) Urine Clarity (Clear) Urine pH (5.0-8.0) Ur Specific [place] (1.003-1.030) Urine Protein (NEGATIVE) mg/dL Urine Glucose (UA) (Normal) mg/dL Urine Ketones (NEGATIVE) mg/dL Urine Blood (NEGATIVE) Urine Nitrate (NEGATIVE) Urine Bilirubin (NEGATIVE) Urine Urobilinogen (0.2-1.0) mg/dL Ur Leukocyte Esterase (Negative) Fausto/uL Urine WBC (Auto) (0-5) /hpf Urine RBC (Auto) (0-3) /hpf Ur Squamous Epith Cells (0-5) /hpf Urine Bacteria (<OCC) Hyaline Casts (0-2) /lpf Stool Occult Blood (NEGATIVE) Alcohol, Quantitative (0-10) mg/dl B-Hydroxybutyrate (0.02-0.27) mM Hepatitis A IgM Ab (NEGATIVE) Hep Bs Antigen (NEGATIVE) Hep B Core IgM Ab (NEGATIVE) Hepatitis C Antibody (NEGATIVE) Blood Type Blood Type Confirm Antibody Screen 11/08/18 11/08/18 Range/Units 13:35 13:31 WBC (4.8-10.8) K/uL RBC (4.40-5.90) Mil/uL Hgb (12.0-18.0) g/dL Hct (35.0-51.0) % MCV (80.0-94.0) fL MCH (27.0-31.0) pg MCHC (33.0-37.0) g/dL RDW (11.5-14.5) % Plt Count (130-400) K/uL MPV (7.2-11.7) fL Neut % (Auto) (50.0-75.0) % Lymph % (Auto) (20.0-40.0) % [place] % (Auto) (0.0-10.0) % Eos % (Auto) (0.0-4.0) % Baso % (Auto) (0.0-2.0) % Neut # (Auto) (1.8-7.0) K/uL Lymph # (Auto) (1.0-4.3) K/uL [place] # (Auto) (0.0-0.8) K/uL Eos # (Auto) (0.0-0.7) K/uL Baso # (Auto) (0.0-0.2) K/uL Neutrophils % (Manual) (50-75) % Band Neutrophils % (0-2) % Lymphocytes % (Manual) (20-40) % Monocytes % (Manual) (0-10) % Eosinophils % (Manual) (0-4) % Toxic Granulation Platelet Estimate (NORMAL) Hypochromasia (manual) Anisocytosis (manual) Ovalocytes Smear Path Review Retic Count (0.5-1.5) % PT (9.7-12.2) SECONDS INR APTT (21-34) SECONDS pO2 21 L (30-55) mm/Hg VBG pH 7.34 (7.32-7.43) VBG pCO2 25 L (40-60) mmHg VBG HCO3 14.9 mmol/L VBG Total CO2 14.3 L (22-28) mmol/L VBG O2 Sat (Calc) 33.2 L (40-65) % VBG Base Excess -10.5 L (0.0-2.0) mmol/L VBG Potassium 2.3 L* (3.6-5.2) mmol/L Sodium 143.0 (132-148) mmol/l Chloride 111.0 H (98-107) mmol/L Glucose 298 H (75-110) mg/dl Lactate 3.5 H (0.7-2.1) mmol/L Crit Value Called To Power rn Crit Value Called By Alicia collins diesel engine erector Crit Value Read Back Y Blood Gas Notified Time 1337 Potassium (3.6-5.2) mmol/L Carbon Dioxide (22-30) mmol/L Anion Gap (10-20) BUN (9-20) mg/dL Creatinine (0.8-1.5) mg/dL Est GFR ( Amer) Est GFR (Non-Af Amer) POC Glucose (mg/dL) 450 H* (65-110) mg/dL Random Glucose (75-110) mg/dL Hemoglobin A1c (4.2-6.5) % Calcium (8.6-10.4) mg/dl Phosphorus (2.5-4.5) mg/dL Magnesium (1.6-2.3) mg/dL Iron (49-181) ug/dL TIBC (250-450) ug/dL % Saturation (20-55) Transferrin (206-381) mg/dL Ferritin ng/mL Total Bilirubin (0.2-1.3) mg/dL AST (17-59) U/L ALT (21-72) U/L Alkaline Phosphatase (38-126) U/L Ammonia (9-33) umol/L Troponin I (0.00-0.120) ng/mL NT-Pro-B Natriuret Pep (0-900) pg/mL Total Protein (6.3-8.3) g/dL Albumin (3.5-5.0) g/dL Globulin (2.2-3.9) gm/dL Albumin/Globulin Ratio (1.0-2.1) Triglycerides (0-149) mg/dL Cholesterol (0-199) mg/dL LDL Cholesterol Direct (0-129) mg/dL HDL Cholesterol (30-70) mg/dL Vitamin B12 (239-931) pg/mL Folate ng/mL Venous Blood Potassium 2.3 L* (3.6-5.2) mmol/L Urine Color (YELLOW) Urine Clarity (Clear) Urine pH (5.0-8.0) Ur Specific [place] (1.003-1.030) Urine Protein (NEGATIVE) mg/dL Urine Glucose (UA) (Normal) mg/dL Urine Ketones (NEGATIVE) mg/dL Urine Blood (NEGATIVE) Urine Nitrate (NEGATIVE) Urine Bilirubin (NEGATIVE) Urine Urobilinogen (0.2-1.0) mg/dL Ur Leukocyte Esterase (Negative) Fausto/uL Urine WBC (Auto) (0-5) /hpf Urine RBC (Auto) (0-3) /hpf Ur Squamous Epith Cells (0-5) /hpf Urine Bacteria (<OCC) Hyaline Casts (0-2) /lpf Stool Occult Blood (NEGATIVE) Alcohol, Quantitative (0-10) mg/dl B-Hydroxybutyrate (0.02-0.27) mM Hepatitis A IgM Ab (NEGATIVE) Hep Bs Antigen (NEGATIVE) Hep B Core IgM Ab (NEGATIVE) Hepatitis C Antibody (NEGATIVE) Blood Type Blood Type Confirm Antibody Screen Laboratory Results - last 24 hr 11/08/18 11/08/18 11/08/18 13:31 13:35 13:39 WBC 17.2 H D RBC 2.08 L Hgb 5.0 L* D Hct 16.8 L MCV 80.7 D MCH 23.9 L MCHC 29.7 L RDW 17.8 H Plt Count 324 MPV 8.2 Neut % (Auto) 88.7 H Lymph % (Auto) 2.8 L [place] % (Auto) 8.1 Eos % (Auto) 0.1 Baso % (Auto) 0.3 Neut # (Auto) 15.2 H Lymph # (Auto) 0.5 L [place] # (Auto) 1.4 H Eos # (Auto) 0.0 Baso # (Auto) 0.0 Neutrophils % (Manual) 74 Band Neutrophils % 10 H Lymphocytes % (Manual) 3 L Monocytes % (Manual) 13 H Eosinophils % (Manual) Toxic Granulation Present Platelet Estimate Normal Hypochromasia (manual) Moderate Anisocytosis (manual) Slight Ovalocytes Smear Path Review Retic Count PT INR APTT pO2 21 L VBG pH 7.34 VBG pCO2 25 L VBG HCO3 14.9 VBG Total CO2 14.3 L VBG O2 Sat (Calc) 33.2 L VBG Base Excess -10.5 L VBG Potassium 2.3 L* Sodium 143.0 Chloride 111.0 H Glucose 298 H Lactate 3.5 H Crit Value Called To Power iyer Crit Value Called By Alicia collins diesel engine erector Crit Value Read Back Y Blood Gas Notified Time 1337 Potassium Carbon Dioxide Anion Gap BUN Creatinine Est GFR ( Amer) Est GFR (Non-Af Amer) POC Glucose (mg/dL) 450 H* Random Glucose Hemoglobin A1c Calcium Phosphorus Magnesium Iron TIBC % Saturation Transferrin Ferritin Total Bilirubin AST ALT Alkaline Phosphatase Ammonia Troponin I NT-Pro-B Natriuret Pep Total Protein Albumin Globulin Albumin/Globulin Ratio Triglycerides Cholesterol LDL Cholesterol Direct HDL Cholesterol Vitamin B12 Folate Venous Blood Potassium 2.3 L* Urine Color Urine Clarity Urine pH Ur Specific [place] Urine Protein Urine Glucose (UA) Urine Ketones Urine Blood Urine Nitrate Urine Bilirubin Urine Urobilinogen Ur Leukocyte Esterase Urine WBC (Auto) Urine RBC (Auto) Ur Squamous Epith Cells Urine Bacteria Hyaline Casts Stool Occult Blood Alcohol, Quantitative B-Hydroxybutyrate Hepatitis A IgM Ab Hep Bs Antigen Hep B Core IgM Ab Hepatitis C Antibody Blood Type Blood Type Confirm Antibody Screen 11/08/18 11/08/18 11/08/18 13:39 13:39 13:39 WBC RBC Hgb Hct MCV MCH MCHC RDW Plt Count MPV Neut % (Auto) Lymph % (Auto) [place] % (Auto) Eos % (Auto) Baso % (Auto) Neut # (Auto) Lymph # (Auto) [place] # (Auto) Eos # (Auto) Baso # (Auto) Neutrophils % (Manual) Band Neutrophils % Lymphocytes % (Manual) Monocytes % (Manual) Eosinophils % (Manual) Toxic Granulation Platelet Estimate Hypochromasia (manual) Anisocytosis (manual) Ovalocytes Smear Path Review Retic Count PT 18.7 H INR 1.7 APTT 30 pO2 VBG pH VBG pCO2 VBG HCO3 VBG Total CO2 VBG O2 Sat (Calc) VBG Base Excess VBG Potassium Sodium 138 Chloride 109 H Glucose Lactate Crit Value Called To Crit Value Called By Crit Value Read Back Blood Gas Notified Time Potassium 2.6 L Carbon Dioxide 16 L Anion Gap 16 BUN 14 Creatinine 0.5 L Est GFR ( Amer) > 60 Est GFR (Non-Af Amer) > 60 POC Glucose (mg/dL) Random Glucose 307 H D Hemoglobin A1c Calcium 7.7 L Phosphorus 2.2 L Magnesium 1.6 Iron TIBC % Saturation Transferrin Ferritin Total Bilirubin 0.3 AST 12 L D ALT 11 L D Alkaline Phosphatase 74 Ammonia Troponin I < 0.0120 NT-Pro-B Natriuret Pep 421 Total Protein 4.5 L Albumin 1.7 L D Globulin 2.8 Albumin/Globulin Ratio 0.6 L Triglycerides Cholesterol LDL Cholesterol Direct HDL Cholesterol Vitamin B12 Folate Venous Blood Potassium Urine Color Urine Clarity Urine pH Ur Specific [place] Urine Protein Urine Glucose (UA) Urine Ketones Urine Blood Urine Nitrate Urine Bilirubin Urine Urobilinogen Ur Leukocyte Esterase Urine WBC (Auto) Urine RBC (Auto) Ur Squamous Epith Cells Urine Bacteria Hyaline Casts Stool Occult Blood Alcohol, Quantitative B-Hydroxybutyrate Hepatitis A IgM Ab Hep Bs Antigen Hep B Core IgM Ab Hepatitis C Antibody Blood Type AB POSITIVE Blood Type Confirm AB POSITIVE Antibody Screen Negative 11/08/18 11/08/18 11/08/18 13:39 14:07 14:55 WBC RBC Hgb Hct MCV MCH MCHC RDW Plt Count MPV Neut % (Auto) Lymph % (Auto) [place] % (Auto) Eos % (Auto) Baso % (Auto) Neut # (Auto) Lymph # (Auto) [place] # (Auto) Eos # (Auto) Baso # (Auto) Neutrophils % (Manual) Band Neutrophils % Lymphocytes % (Manual) Monocytes % (Manual) Eosinophils % (Manual) Toxic Granulation Platelet Estimate Hypochromasia (manual) Anisocytosis (manual) Ovalocytes Smear Path Review Retic Count PT INR APTT pO2 73 H VBG pH 7.34 VBG pCO2 23 L VBG HCO3 15.9 VBG Total CO2 13.1 L VBG O2 Sat (Calc) 94.4 H VBG Base Excess -11.4 L VBG Potassium 2.0 L* Sodium 135.0 Chloride 104.0 Glucose 244 H Lactate 1.7 Crit Value Called To Dr. kumar Crit Value Called By Afsaneh perez rcp Crit Value Read Back Y Blood Gas Notified Time 1505 Potassium Carbon Dioxide Anion Gap BUN Creatinine Est GFR ( Amer) Est GFR (Non-Af Amer) POC Glucose (mg/dL) Random Glucose Hemoglobin A1c Calcium Phosphorus Magnesium Iron TIBC % Saturation Transferrin Ferritin Total Bilirubin AST ALT Alkaline Phosphatase Ammonia Troponin I NT-Pro-B Natriuret Pep Total Protein Albumin Globulin Albumin/Globulin Ratio Triglycerides Cholesterol LDL Cholesterol Direct HDL Cholesterol Vitamin B12 Folate Venous Blood Potassium 2.0 L* Urine Color Yellow Urine Clarity Hazy Urine pH 5.0 Ur Specific [place] 1.022 Urine Protein 1+ H Urine Glucose (UA) 3+ H Urine Ketones 2+ H Urine Blood Negative Urine Nitrate Negative Urine Bilirubin Negative Urine Urobilinogen Normal Ur Leukocyte Esterase Neg Urine WBC (Auto) 8 H Urine RBC (Auto) 2 Ur Squamous Epith Cells < 1 Urine Bacteria Rare Hyaline Casts >20 H Stool Occult Blood Negative Alcohol, Quantitative B-Hydroxybutyrate Hepatitis A IgM Ab Hep Bs Antigen Hep B Core IgM Ab Hepatitis C Antibody Blood Type Blood Type Confirm Antibody Screen 11/08/18 11/08/18 11/08/18 16:07 16:07 16:07 WBC RBC Hgb Hct MCV MCH MCHC RDW Plt Count MPV Neut % (Auto) Lymph % (Auto) [place] % (Auto) Eos % (Auto) Baso % (Auto) Neut # (Auto) Lymph # (Auto) [place] # (Auto) Eos # (Auto) Baso # (Auto) Neutrophils % (Manual) Band Neutrophils % Lymphocytes % (Manual) Monocytes % (Manual) Eosinophils % (Manual) Toxic Granulation Platelet Estimate Hypochromasia (manual) Anisocytosis (manual) Ovalocytes Smear Path Review Retic Count PT INR APTT pO2 VBG pH VBG pCO2 VBG HCO3 VBG Total CO2 VBG O2 Sat (Calc) VBG Base Excess VBG Potassium Sodium Chloride Glucose Lactate Crit Value Called To Crit Value Called By Crit Value Read Back Blood Gas Notified Time Potassium Carbon Dioxide Anion Gap BUN Creatinine Est GFR ( Amer) Est GFR (Non-Af Amer) POC Glucose (mg/dL) Random Glucose Hemoglobin A1c Calcium Phosphorus Magnesium Iron < 10 L TIBC 148 L % Saturation Transferrin < 80.00 L Ferritin 39.5 Total Bilirubin AST ALT Alkaline Phosphatase Ammonia Troponin I NT-Pro-B Natriuret Pep Total Protein Albumin Globulin Albumin/Globulin Ratio Triglycerides Cholesterol LDL Cholesterol Direct HDL Cholesterol Vitamin B12 967 H Folate 10.5 Venous Blood Potassium Urine Color Urine Clarity Urine pH Ur Specific [place] Urine Protein Urine Glucose (UA) Urine Ketones Urine Blood Urine Nitrate Urine Bilirubin Urine Urobilinogen Ur Leukocyte Esterase Urine WBC (Auto) Urine RBC (Auto) Ur Squamous Epith Cells Urine Bacteria Hyaline Casts Stool Occult Blood Alcohol, Quantitative < 10 B-Hydroxybutyrate 4.94 H Hepatitis A IgM Ab Hep Bs Antigen Hep B Core IgM Ab Hepatitis C Antibody Blood Type Blood Type Confirm Antibody Screen 11/08/18 11/08/18 11/08/18 16:07 16:07 16:10 WBC RBC Hgb Hct MCV MCH MCHC RDW Plt Count MPV Neut % (Auto) Lymph % (Auto) [place] % (Auto) Eos % (Auto) Baso % (Auto) Neut # (Auto) Lymph # (Auto) [place] # (Auto) Eos # (Auto) Baso # (Auto) Neutrophils % (Manual) Band Neutrophils % Lymphocytes % (Manual) Monocytes % (Manual) Eosinophils % (Manual) Toxic Granulation Platelet Estimate Hypochromasia (manual) Anisocytosis (manual) Ovalocytes Smear Path Review Retic Count PT INR APTT pO2 VBG pH VBG pCO2 VBG HCO3 VBG Total CO2 VBG O2 Sat (Calc) VBG Base Excess VBG Potassium Sodium Chloride Glucose Lactate Crit Value Called To Crit Value Called By Crit Value Read Back Blood Gas Notified Time Potassium Carbon Dioxide Anion Gap BUN Creatinine Est GFR ( Amer) Est GFR (Non-Af Amer) POC Glucose (mg/dL) 300 H Random Glucose Hemoglobin A1c Calcium Phosphorus Magnesium Iron TIBC % Saturation Transferrin Ferritin Total Bilirubin AST ALT Alkaline Phosphatase Ammonia 29 Troponin I NT-Pro-B Natriuret Pep Total Protein Albumin Globulin Albumin/Globulin Ratio Triglycerides Cholesterol LDL Cholesterol Direct HDL Cholesterol Vitamin B12 Folate Venous Blood Potassium Urine Color Urine Clarity Urine pH Ur Specific [place] Urine Protein Urine Glucose (UA) Urine Ketones Urine Blood Urine Nitrate Urine Bilirubin Urine Urobilinogen Ur Leukocyte Esterase Urine WBC (Auto) Urine RBC (Auto) Ur Squamous Epith Cells Urine Bacteria Hyaline Casts Stool Occult Blood Alcohol, Quantitative B-Hydroxybutyrate Hepatitis A IgM Ab Negative Hep Bs Antigen Negative Hep B Core IgM Ab Negative Hepatitis C Antibody Negative Blood Type Blood Type Confirm Antibody Screen 11/08/18 11/08/18 11/08/18 18:09 18:21 21:43 WBC RBC Hgb Hct MCV MCH MCHC RDW Plt Count MPV Neut % (Auto) Lymph % (Auto) [place] % (Auto) Eos % (Auto) Baso % (Auto) Neut # (Auto) Lymph # (Auto) [place] # (Auto) Eos # (Auto) Baso # (Auto) Neutrophils % (Manual) Band Neutrophils % Lymphocytes % (Manual) Monocytes % (Manual) Eosinophils % (Manual) Toxic Granulation Platelet Estimate Hypochromasia (manual) Anisocytosis (manual) Ovalocytes Smear Path Review Retic Count 2.2 H PT INR APTT pO2 VBG pH VBG pCO2 VBG HCO3 VBG Total CO2 VBG O2 Sat (Calc) VBG Base Excess VBG Potassium Sodium Chloride Glucose Lactate Crit Value Called To Crit Value Called By Crit Value Read Back Blood Gas Notified Time Potassium Carbon Dioxide Anion Gap BUN Creatinine Est GFR ( Amer) Est GFR (Non-Af Amer) POC Glucose (mg/dL) 213 H 329 H Random Glucose Hemoglobin A1c Calcium Phosphorus Magnesium Iron TIBC % Saturation Transferrin Ferritin Total Bilirubin AST ALT Alkaline Phosphatase Ammonia Troponin I NT-Pro-B Natriuret Pep Total Protein Albumin Globulin Albumin/Globulin Ratio Triglycerides Cholesterol LDL Cholesterol Direct HDL Cholesterol Vitamin B12 Folate Venous Blood Potassium Urine Color Urine Clarity Urine pH Ur Specific [place] Urine Protein Urine Glucose (UA) Urine Ketones Urine Blood Urine Nitrate Urine Bilirubin Urine Urobilinogen Ur Leukocyte Esterase Urine WBC (Auto) Urine RBC (Auto) Ur Squamous Epith Cells Urine Bacteria Hyaline Casts Stool Occult Blood Alcohol, Quantitative B-Hydroxybutyrate Hepatitis A IgM Ab Hep Bs Antigen Hep B Core IgM Ab Hepatitis C Antibody Blood Type Blood Type Confirm Antibody Screen 11/08/18 11/09/18 11/09/18 23:58 00:01 05:06 WBC RBC Hgb Hct MCV MCH MCHC RDW Plt Count MPV Neut % (Auto) Lymph % (Auto) [place] % (Auto) Eos % (Auto) Baso % (Auto) Neut # (Auto) Lymph # (Auto) [place] # (Auto) Eos # (Auto) Baso # (Auto) Neutrophils % (Manual) Band Neutrophils % Lymphocytes % (Manual) Monocytes % (Manual) Eosinophils % (Manual) Toxic Granulation Platelet Estimate Hypochromasia (manual) Anisocytosis (manual) Ovalocytes Smear Path Review Retic Count PT INR APTT pO2 VBG pH VBG pCO2 VBG HCO3 VBG Total CO2 VBG O2 Sat (Calc) VBG Base Excess VBG Potassium Sodium Chloride Glucose Lactate Crit Value Called To Crit Value Called By Crit Value Read Back Blood Gas Notified Time Potassium Carbon Dioxide Anion Gap BUN Creatinine Est GFR ( Amer) Est GFR (Non-Af Amer) POC Glucose (mg/dL) 406 H* 424 H* 292 H Random Glucose Hemoglobin A1c Calcium Phosphorus Magnesium Iron TIBC % Saturation Transferrin Ferritin Total Bilirubin AST ALT Alkaline Phosphatase Ammonia Troponin I NT-Pro-B Natriuret Pep Total Protein Albumin Globulin Albumin/Globulin Ratio Triglycerides Cholesterol LDL Cholesterol Direct HDL Cholesterol Vitamin B12 Folate Venous Blood Potassium Urine Color Urine Clarity Urine pH Ur Specific [place] Urine Protein Urine Glucose (UA) Urine Ketones Urine Blood Urine Nitrate Urine Bilirubin Urine Urobilinogen Ur Leukocyte Esterase Urine WBC (Auto) Urine RBC (Auto) Ur Squamous Epith Cells Urine Bacteria Hyaline Casts Stool Occult Blood Alcohol, Quantitative B-Hydroxybutyrate Hepatitis A IgM Ab Hep Bs Antigen Hep B Core IgM Ab Hepatitis C Antibody Blood Type Blood Type Confirm Antibody Screen 11/09/18 11/09/18 11/09/18 05:45 05:45 06:02 WBC 14.9 H RBC 3.31 L Hgb 8.6 L D Hct 27.1 L MCV 81.8 MCH 26.1 L MCHC 31.9 L RDW 17.0 H Plt Count 252 MPV 8.2 Neut % (Auto) 84.1 H Lymph % (Auto) 5.8 L [place] % (Auto) 9.1 Eos % (Auto) 0.7 Baso % (Auto) 0.3 Neut # (Auto) 12.5 H Lymph # (Auto) 0.9 L [place] # (Auto) 1.4 H Eos # (Auto) 0.1 Baso # (Auto) 0.0 Neutrophils % (Manual) 62 Band Neutrophils % 18 H* Lymphocytes % (Manual) 10 L Monocytes % (Manual) 9 Eosinophils % (Manual) 1 Toxic Granulation Present Platelet Estimate Normal Hypochromasia (manual) Slight Anisocytosis (manual) Slight Ovalocytes Slight Smear Path Review Retic Count PT 13.6 H D INR 1.2 D APTT 28 pO2 VBG pH VBG pCO2 VBG HCO3 VBG Total CO2 VBG O2 Sat (Calc) VBG Base Excess VBG Potassium Sodium 137 Chloride 107 Glucose Lactate Crit Value Called To Crit Value Called By Crit Value Read Back Blood Gas Notified Time Potassium 3.6 Carbon Dioxide 24 Anion Gap 9 L BUN 17 Creatinine 0.5 L Est GFR ( Amer) > 60 Est GFR (Non-Af Amer) > 60 POC Glucose (mg/dL) Random Glucose 249 H Hemoglobin A1c Calcium 10.3 Phosphorus 2.1 L Magnesium 2.1 Iron TIBC % Saturation Transferrin Ferritin Total Bilirubin 1.0 AST 13 L ALT 15 L D Alkaline Phosphatase 82 Ammonia Troponin I NT-Pro-B Natriuret Pep Total Protein 5.3 L Albumin 2.2 L D Globulin 3.2 Albumin/Globulin Ratio 0.7 L Triglycerides 76 Cholesterol < 50 LDL Cholesterol Direct 36 HDL Cholesterol 16 L Vitamin B12 Folate Venous Blood Potassium Urine Color Urine Clarity Urine pH Ur Specific [place] Urine Protein Urine Glucose (UA) Urine Ketones Urine Blood Urine Nitrate Urine Bilirubin Urine Urobilinogen Ur Leukocyte Esterase Urine WBC (Auto) Urine RBC (Auto) Ur Squamous Epith Cells Urine Bacteria Hyaline Casts Stool Occult Blood Alcohol, Quantitative B-Hydroxybutyrate Hepatitis A IgM Ab Hep Bs Antigen Hep B Core IgM Ab Hepatitis C Antibody Blood Type Blood Type Confirm Antibody Screen 11/09/18 11/09/18 06:02 11:45 WBC RBC Hgb Hct MCV MCH MCHC RDW Plt Count MPV Neut % (Auto) Lymph % (Auto) [place] % (Auto) Eos % (Auto) Baso % (Auto) Neut # (Auto) Lymph # (Auto) [place] # (Auto) Eos # (Auto) Baso # (Auto) Neutrophils % (Manual) Band Neutrophils % Lymphocytes % (Manual) Monocytes % (Manual) Eosinophils % (Manual) Toxic Granulation Platelet Estimate Hypochromasia (manual) Anisocytosis (manual) Ovalocytes Smear Path Review Retic Count PT INR APTT pO2 VBG pH VBG pCO2 VBG HCO3 VBG Total CO2 VBG O2 Sat (Calc) VBG Base Excess VBG Potassium Sodium Chloride Glucose Lactate Crit Value Called To Crit Value Called By Crit Value Read Back Blood Gas Notified Time Potassium Carbon Dioxide Anion Gap BUN Creatinine Est GFR ( Amer) Est GFR (Non-Af Amer) POC Glucose (mg/dL) 365 H Random Glucose Hemoglobin A1c 8.1 H D Calcium Phosphorus Magnesium Iron TIBC % Saturation Transferrin Ferritin Total Bilirubin AST ALT Alkaline Phosphatase Ammonia Troponin I NT-Pro-B Natriuret Pep Total Protein Albumin Globulin Albumin/Globulin Ratio Triglycerides Cholesterol LDL Cholesterol Direct HDL Cholesterol Vitamin B12 Folate Venous Blood Potassium Urine Color Urine Clarity Urine pH Ur Specific [place] Urine Protein Urine Glucose (UA) Urine Ketones Urine Blood Urine Nitrate Urine Bilirubin Urine Urobilinogen Ur Leukocyte Esterase Urine WBC (Auto) Urine RBC (Auto) Ur Squamous Epith Cells Urine Bacteria Hyaline Casts Stool Occult Blood Alcohol, Quantitative B-Hydroxybutyrate Hepatitis A IgM Ab Hep Bs Antigen Hep B Core IgM Ab Hepatitis C Antibody Blood Type Blood Type Confirm Antibody Screen Radiology Impressions: Radiology Impressions Chest X-Ray 11/08/18 13:03 IMPRESSION: Layering left pleural effusion and/or consolidation. Chest/Abdomen/Pelvis CT 11/08/18 14:17 IMPRESSION: The prior amount of ascites and anasarca has improved since the prior exam.The prior scrotal perineal gas interpreted as findings compatible with [place] gangrene is not seen as such on this exam. The full extent however is less now than apparently before. Clinical correlation is advised. The prior right pleural effusion has cleared. There is interval loculated left pleural effusion as detailed above. The prior mediastinal noted densities have also decreased in size. The appearance of the GE junction is indeterminate here a hiatal hernia in part is 1 consideration-however concomitant underlying mass here is also a consideration. Follow-up is advised. Head CT 11/08/18 14:18 IMPRESSION: No intracranial hemorrhage or mass effect. Left maxillary sinus retention cyst. Interventional Procedure 11/09/18 08:27 IMPRESSION: Placement of an 8 Upper Sor[place] left chest tube. There were no immediate complications. EKG/Cardiology Studies: Cardiology / EKG Studies 11/08/18 12:54 ELECTROCARDIOGRAM Stat Comment: Mode Of Transportation: Reason For Exam: Sepsis Patient 11/08/18 13:03 ELECTROCARDIOGRAM Stat Comment: Mode Of Transportation: Reason For Exam: Sepsis Patient Fingerstick Blood Sugar Results: 365 Review of Systems - Constitutional Constitutional: absent: Fever, Chills - Cardiovascular Cardiovascular: absent: Chest Pain, Dyspnea, Pain Radiating to Arm/Neck/Jaw, Palpitations, Syncope - Respiratory Respiratory: absent: Cough, Dyspnea on Exertion, Wheezing - Gastrointestinal Gastrointestinal: UNREMARKABLE - Genitourinary Genitourinary: UNREMARKABLE - Integumentary Integumentary: UNREMARKABLE - Neurological Neurological: UNREMARKABLE Critical Care Progress Note - Nutrition Nutrition: Nutrition Category Date Time Status Diabetic [Consistent Carbohydrate] [DIET] Diets 11/09/18 Lunch Active Assessment/Plan - Assessment and Plan (Free Text) Assessment: This is a 58 y o male with PMHx DM2, CHF (last EF 55%) who presents to the ED today s/p fall at home today. Found to have acute Hgb drop from 10 to 5 as compared to prior admission in Aug 2018, concern to r/o GI bleed, no active bleeding appreciated on exam. Hgb improved to 8.6 today s/p transfusion of 3 PRBC and 1 FFP. Also presented with sepsis: hypothermic, hypotension, leukocytosis and elevated lactate on admission. Also found to have hyperglycemia on admission. Admitted to ICU for further monitoring. GI (Dr. Aaron) and Cardiology (Dr. Dodge) consulted. Plan for L-sided thoracentesis for eval of L- sided pleural effusion found on CT chest with IR (Dr. Wilkerson), r/o malignancy as etiology. Also found to have suspicious mass at GE junction, r/o malignancy. Plan for EGD for 11/12. Plan: Neuro: -AAOx3 -CT head on admission demonstrates no acute findings or active bleed -Cont to monitor -Neuro checks q4h Cardio: -Hypotensive on admission, likely 2/2 sepsis -C/w IVF -Hx CHF -Not on any current medications outpatient -EKG on admission demonstrates NSR at 99 bpm -Dr. Dodge consulted, recs appreciated -Will need to obtain outpatient records from Dr. Ma's office regarding recent stress test -Echo ordered Pulm: -Saturating well on room air -L pleural effusion -Pt presented with dyspnea on exertion -CXR on admission: Layering L pleural effusion and/or consolidation -Repeat CXR done after thoracentesis performed by IR this am -CT chest/abd/pelvis: prior R pleural effusion cleared. Prior L pleural effusion has enlarged and interval loculated large L pleural effision now present, at least 18 cm cephalo caudal by 14 and 7 cm in axial dimensions. Smaller 1.5 cm hypodense nodular opacity borders loculated L pleural effusion, could represent smaller pleural fluid collection possibly loculated perifissural. -R/o malignancy as etiology -IR (Dr. Wilkerson) consulted for thoracentesis, recs appreciated S/p placement of 8 Upper Sor[place] L chest tube on 11/09 Fluid and cytology studies sent, f/u results -Will cont to monitor -CT surgery (Dr. Torres) consulted for L pleural effusion and suspicious GE junction mass, recs appreciated GI: -NPO today for L-sided thoracentesis -Anemia/acute drop in Hgb -No active bleeding appreciated on exam -Hgb 5/16.8 on admission, acute drop from Hgb of 10 on prior admission to [facility] in Aug 2018; repeat CBC 8.6 this am, cont to trend -S/p 3 units PRBCs transfused, 1 FFP on day of admission -CT chest/abd/pelvis: appearance of GE junction indeterminate, r/o hiatal hernia vs. possible concomitant underlying mass -GI consulted (Dr. Aaron), recs appreciated -EGD scheduled for this Mon 11/12 -Iron studies, ferritin, retic ct ordered Endo: -Hyperglycemia/hx DM2 -Presented with FS 450 on ED presentation, trending down, does not need insulin drip at this time -Normal AG, bicarb 16 -S/p D50, insulin -Hold home med Metformin on admission due to elevated lactate -ISS -Fingersticks q6h -Hypoglycemic protocol as ordered ID: -Sepsis -R/o source of infection -Hypothermic on presentation, c/w Odette hugger -Hypotensive, improved with IVFs, cont to monitor -Leukocytosis -Elevated lactate -Blood, urine cxs pending -Sacral ulcer stage 1 c/d/i, less likely source of infection at this time -Vanco/zosyn -Tylenol prn for fevers -IVF at 100 cc/hr Renal: -BUN/Cr wnl on admission -Trend I's/O's -Hypokalemia resolved this am -K 2.6 on admission -May be 2/2 to hyperglycemia -Repleted with KCl -Cont to trend Heme: -Mgmt for anemia/acute Hgb drop as noted above -Cont to trend H/H s/p transfusion -Am coags ordered -INR on admission 1.7 PPX: -Protonix bid, SCD -Pharmacologic DVT ppx held to r/o GI bleed Pt seen, examined with, and plan discussed with Dr. Knight, attending physician. Stevenson Garcia, PGY-1, [employer] Att[employer] Pager #[phone] <Bert Knight - Last Filed: 11/10/18 08:00> CCU Objective - Vital Signs / Intake & Output Vital Signs (Last 4 hours): Vital Signs Temp Pulse Resp BP Pulse Ox 11/10/18 06:00 78 21 106/71 97 11/10/18 05:01 86 22 129/74 11/10/18 05:00 90 15 97 11/10/18 04:00 98.8 F 78 26 H 112/72 96 Intake and Output (Last 8hrs): Intake & Output 11/09/18 11/10/18 11/10/18 22:59 06:59 14:59 Intake Total 1250 1000 Output Total 330 350 Balance 920 650 Intake: Intake, IV Amount 1000 800 Left Forearm 1000 800 Oral 250 200 Output: Chest Tube Drainage 230 Left 230 Urine 100 350 Urine, Voided 100 350 Other: # Voids Urine, Voided 0 # Bowel Movements 0 - Medications Active Medications: Active Medications Generic Name Dose Route Start Last Admin Trade Name Freq PRN Reason Stop Dose Admin Acetaminophen 650 mg 11/08/18 18:40 11/10/18 00:40 Tylenol 325mg Tab PO 650 mg Q6 PRN Administration Fever >100.4 F Dextrose 0 ml 11/08/18 14:57 Dextrose 50% Inj IV STAT PRN Hypoglycemia Protocol Protocol Dextrose 0 gm 11/08/18 14:57 Glutose 15 PO ONCE PRN Hypoglycemia Protocol Protocol Folic Acid 1 mg 11/09/18 10:00 11/09/18 11:38 Folic Acid PO 1 mg DAILY EDER Administration Glucagon 0 mg 11/08/18 14:57 Glucagen Diagnostic Kit IM STAT PRN Hypoglycemia Protocol Protocol Dextrose 1,000 mls @ 0 mls/hr 11/08/18 14:57 Dextrose 5% In Water 1000 Ml IV .Q0M PRN Hypoglycemia Protocol Protocol Per Protocol Sodium Chloride 1,000 mls @ 100 mls/hr 11/08/18 15:30 11/10/18 06:52 Sodium Chloride 0.9% IV 100 mls/hr .Q10H EDER Administration Piperacillin Sod/Tazobactam Sod 3.375 gm in 50 mls @ 100 mls/hr 11/08/18 20:30 11/10/18 01:42 Zosyn 3.375 Gm Iv Premix IVPB 100 mls/hr Q6H EDER Administration Protocol Vancomycin/Sodium Chloride 1 gm in 200 mls @ 133.333 mls/hr 11/09/18 02:30 11/10/18 02:38 Vancomycin 1 Gm/Ns 200 Ml IVPB 11/14/18 02:31 133.333 mls/hr Q12H EDER Administration Protocol Potassium Chloride 20 meq in 100 mls @ 50 mls/hr 11/10/18 07:45 Potassium Chloride 20 Meq/100 Ml IVPB 11/10/18 09:44 Q1H EDER Insulin Human Regular 0 unit 11/09/18 16:30 11/09/18 22:56 Novolin R SC Not Given ACHS [facility] Protocol Multivitamins 1 tab 11/09/18 10:00 11/09/18 11:29 Hexavitamin PO 1 tab DAILY EDER Administration Nicotine 1 patch 11/09/18 10:00 11/09/18 09:54 Nicoderm Cq TD 1 patch DAILY EDER Administration Pantoprazole Sodium 40 mg 11/09/18 10:00 11/09/18 23:04 Protonix Inj IVP 40 mg Q12H EDER Administration Potassium Chloride 80 meq 11/10/18 07:39 K-Dur 20 Meq Er Tab PO 11/10/18 07:40 ONCE ONE Thiamine HCl 100 mg 11/09/18 10:00 11/09/18 11:29 Vitamin B1 Tab PO 100 mg DAILY EDER Administration - Patient Studies Lab Studies: Microbiology Studies 11/08/18 16:07 MRSA Culture (Admit) - Final Naris MRSA NOT DETECTED 11/08/18 14:12 Blood Culture - Preliminary Blood NO GROWTH AFTER 24 HOURS 11/09/18 10:58 Gram Stain - Preliminary Pleural Fluid 11/08/18 14:07 Urine Culture - Preliminary Urine,Catheterized Gram Positive Cocci 11/08/18 14:13 Blood Culture - Preliminary Blood Gram Negative Gregg Gram Stain - Final Lab Studies 11/10/18 11/10/18 11/09/18 Range/Units 06:30 06:30 21:38 WBC 7.7 (4.8-10.8) K/uL RBC 3.22 L (4.40-5.90) Mil/uL Hgb 8.6 L (12.0-18.0) g/dL Hct 26.3 L (35.0-51.0) % MCV 81.7 (80.0-94.0) fL MCH 26.7 L (27.0-31.0) pg MCHC 32.6 L (33.0-37.0) g/dL RDW 16.8 H (11.5-14.5) % Plt Count 164 (130-400) K/uL MPV 8.5 (7.2-11.7) fL Neut % (Auto) 81.0 H (50.0-75.0) % Lymph % (Auto) 9.2 L (20.0-40.0) % [place] % (Auto) 8.0 (0.0-10.0) % Eos % (Auto) 1.5 (0.0-4.0) % Baso % (Auto) 0.3 (0.0-2.0) % Neut # (Auto) 6.3 (1.8-7.0) K/uL Lymph # (Auto) 0.7 L (1.0-4.3) K/uL [place] # (Auto) 0.6 (0.0-0.8) K/uL Eos # (Auto) 0.1 (0.0-0.7) K/uL Baso # (Auto) 0.0 (0.0-0.2) K/uL Neutrophils % (Manual) (50-75) % Band Neutrophils % (0-2) % Lymphocytes % (Manual) (20-40) % Monocytes % (Manual) (0-10) % Eosinophils % (Manual) (0-4) % Toxic Granulation Platelet Estimate (NORMAL) Hypochromasia (manual) Anisocytosis (manual) Ovalocytes Sodium 134 (132-148) mmol/L Potassium 2.9 L (3.6-5.2) mmol/L Chloride 105 (98-107) mmol/L Carbon Dioxide 24 (22-30) mmol/L Anion Gap 8 L (10-20) BUN 12 (9-20) mg/dL Creatinine 0.4 L (0.8-1.5) mg/dL Est GFR ( Amer) > 60 Est GFR (Non-Af Amer) > 60 POC Glucose (mg/dL) 214 H (65-110) mg/dL Random Glucose 251 H (75-110) mg/dL Hemoglobin A1c (4.2-6.5) % Calcium 9.5 (8.6-10.4) mg/dl Phosphorus 3.1 (2.5-4.5) mg/dL Magnesium 1.8 (1.6-2.3) mg/dL Total Bilirubin 0.8 (0.2-1.3) mg/dL AST 18 (17-59) U/L ALT 16 L (21-72) U/L Alkaline Phosphatase 84 (38-126) U/L Total Protein 5.0 L (6.3-8.3) g/dL Albumin 1.9 L (3.5-5.0) g/dL Globulin 3.1 (2.2-3.9) gm/dL Albumin/Globulin Ratio 0.6 L (1.0-2.1) Procalcitonin (0.19-0.49) NG/ML 11/09/18 11/09/18 11/09/18 Range/Units 16:27 11:45 10:44 WBC (4.8-10.8) K/uL RBC (4.40-5.90) Mil/uL Hgb (12.0-18.0) g/dL Hct (35.0-51.0) % MCV (80.0-94.0) fL MCH (27.0-31.0) pg MCHC (33.0-37.0) g/dL RDW (11.5-14.5) % Plt Count (130-400) K/uL MPV (7.2-11.7) fL Neut % (Auto) (50.0-75.0) % Lymph % (Auto) (20.0-40.0) % [place] % (Auto) (0.0-10.0) % Eos % (Auto) (0.0-4.0) % Baso % (Auto) (0.0-2.0) % Neut # (Auto) (1.8-7.0) K/uL Lymph # (Auto) (1.0-4.3) K/uL [place] # (Auto) (0.0-0.8) K/uL Eos # (Auto) (0.0-0.7) K/uL Baso # (Auto) (0.0-0.2) K/uL Neutrophils % (Manual) (50-75) % Band Neutrophils % (0-2) % Lymphocytes % (Manual) (20-40) % Monocytes % (Manual) (0-10) % Eosinophils % (Manual) (0-4) % Toxic Granulation Platelet Estimate (NORMAL) Hypochromasia (manual) Anisocytosis (manual) Ovalocytes Sodium (132-148) mmol/L Potassium (3.6-5.2) mmol/L Chloride (98-107) mmol/L Carbon Dioxide (22-30) mmol/L Anion Gap (10-20) BUN (9-20) mg/dL Creatinine (0.8-1.5) mg/dL Est GFR ( Amer) Est GFR (Non-Af Amer) POC Glucose (mg/dL) 248 H 365 H (65-110) mg/dL Random Glucose (75-110) mg/dL Hemoglobin A1c (4.2-6.5) % Calcium (8.6-10.4) mg/dl Phosphorus (2.5-4.5) mg/dL Magnesium (1.6-2.3) mg/dL Total Bilirubin (0.2-1.3) mg/dL AST (17-59) U/L ALT (21-72) U/L Alkaline Phosphatase (38-126) U/L Total Protein (6.3-8.3) g/dL Albumin (3.5-5.0) g/dL Globulin (2.2-3.9) gm/dL Albumin/Globulin Ratio (1.0-2.1) Procalcitonin 1.49 H (0.19-0.49) NG/ML 11/09/18 11/09/18 Range/Units 06:02 06:02 WBC (4.8-10.8) K/uL RBC (4.40-5.90) Mil/uL Hgb (12.0-18.0) g/dL Hct (35.0-51.0) % MCV (80.0-94.0) fL MCH (27.0-31.0) pg MCHC (33.0-37.0) g/dL RDW (11.5-14.5) % Plt Count (130-400) K/uL MPV (7.2-11.7) fL Neut % (Auto) (50.0-75.0) % Lymph % (Auto) (20.0-40.0) % [place] % (Auto) (0.0-10.0) % Eos % (Auto) (0.0-4.0) % Baso % (Auto) (0.0-2.0) % Neut # (Auto) (1.8-7.0) K/uL Lymph # (Auto) (1.0-4.3) K/uL [place] # (Auto) (0.0-0.8) K/uL Eos # (Auto) (0.0-0.7) K/uL Baso # (Auto) (0.0-0.2) K/uL Neutrophils % (Manual) 62 (50-75) % Band Neutrophils % 18 H* (0-2) % Lymphocytes % (Manual) 10 L (20-40) % Monocytes % (Manual) 9 (0-10) % Eosinophils % (Manual) 1 (0-4) % Toxic Granulation Present Platelet Estimate Normal (NORMAL) Hypochromasia (manual) Slight Anisocytosis (manual) Slight Ovalocytes Slight Sodium (132-148) mmol/L Potassium (3.6-5.2) mmol/L Chloride (98-107) mmol/L Carbon Dioxide (22-30) mmol/L Anion Gap (10-20) BUN (9-20) mg/dL Creatinine (0.8-1.5) mg/dL Est GFR ( Amer) Est GFR (Non-Af Amer) POC Glucose (mg/dL) (65-110) mg/dL Random Glucose (75-110) mg/dL Hemoglobin A1c 8.1 H D (4.2-6.5) % Calcium (8.6-10.4) mg/dl Phosphorus (2.5-4.5) mg/dL Magnesium (1.6-2.3) mg/dL Total Bilirubin (0.2-1.3) mg/dL AST (17-59) U/L ALT (21-72) U/L Alkaline Phosphatase (38-126) U/L Total Protein (6.3-8.3) g/dL Albumin (3.5-5.0) g/dL Globulin (2.2-3.9) gm/dL Albumin/Globulin Ratio (1.0-2.1) Procalcitonin (0.19-0.49) NG/ML Laboratory Results - last 24 hr 11/09/18 11/09/18 11/09/18 06:02 06:02 10:44 WBC RBC Hgb Hct MCV MCH MCHC RDW Plt Count MPV Neut % (Auto) Lymph % (Auto) [place] % (Auto) Eos % (Auto) Baso % (Auto) Neut # (Auto) Lymph # (Auto) [place] # (Auto) Eos # (Auto) Baso # (Auto) Neutrophils % (Manual) 62 Band Neutrophils % 18 H* Lymphocytes % (Manual) 10 L Monocytes % (Manual) 9 Eosinophils % (Manual) 1 Toxic Granulation Present Platelet Estimate Normal Hypochromasia (manual) Slight Anisocytosis (manual) Slight Ovalocytes Slight Sodium Potassium Chloride Carbon Dioxide Anion Gap BUN Creatinine Est GFR ( Amer) Est GFR (Non-Af Amer) POC Glucose (mg/dL) Random Glucose Hemoglobin A1c 8.1 H D Calcium Phosphorus Magnesium Total Bilirubin AST ALT Alkaline Phosphatase Total Protein Albumin Globulin Albumin/Globulin Ratio Procalcitonin 1.49 H 11/09/18 11/09/18 11/09/18 11:45 16:27 21:38 WBC RBC Hgb Hct MCV MCH MCHC RDW Plt Count MPV Neut % (Auto) Lymph % (Auto) [place] % (Auto) Eos % (Auto) Baso % (Auto) Neut # (Auto) Lymph # (Auto) [place] # (Auto) Eos # (Auto) Baso # (Auto) Neutrophils % (Manual) Band Neutrophils % Lymphocytes % (Manual) Monocytes % (Manual) Eosinophils % (Manual) Toxic Granulation Platelet Estimate Hypochromasia (manual) Anisocytosis (manual) Ovalocytes Sodium Potassium Chloride Carbon Dioxide Anion Gap BUN Creatinine Est GFR ( Amer) Est GFR (Non-Af Amer) POC Glucose (mg/dL) 365 H 248 H 214 H Random Glucose Hemoglobin A1c Calcium Phosphorus Magnesium Total Bilirubin AST ALT Alkaline Phosphatase Total Protein Albumin Globulin Albumin/Globulin Ratio Procalcitonin 11/10/18 11/10/18 06:30 06:30 WBC 7.7 RBC 3.22 L Hgb 8.6 L Hct 26.3 L MCV 81.7 MCH 26.7 L MCHC 32.6 L RDW 16.8 H Plt Count 164 MPV 8.5 Neut % (Auto) 81.0 H Lymph % (Auto) 9.2 L [place] % (Auto) 8.0 Eos % (Auto) 1.5 Baso % (Auto) 0.3 Neut # (Auto) 6.3 Lymph # (Auto) 0.7 L [place] # (Auto) 0.6 Eos # (Auto) 0.1 Baso # (Auto) 0.0 Neutrophils % (Manual) Band Neutrophils % Lymphocytes % (Manual) Monocytes % (Manual) Eosinophils % (Manual) Toxic Granulation Platelet Estimate Hypochromasia (manual) Anisocytosis (manual) Ovalocytes Sodium 134 Potassium 2.9 L Chloride 105 Carbon Dioxide 24 Anion Gap 8 L BUN 12 Creatinine 0.4 L Est GFR ( Amer) > 60 Est GFR (Non-Af Amer) > 60 POC Glucose (mg/dL) Random Glucose 251 H Hemoglobin A1c Calcium 9.5 Phosphorus 3.1 Magnesium 1.8 Total Bilirubin 0.8 AST 18 ALT 16 L Alkaline Phosphatase 84 Total Protein 5.0 L Albumin 1.9 L Globulin 3.1 Albumin/Globulin Ratio 0.6 L Procalcitonin Radiology Impressions: Radiology Impressions Chest X-Ray 11/09/18 06:00 IMPRESSION: Slight increase in left perihilar/basilar opacity. Small left pleural effusion, grossly unchanged. Interventional Procedure 11/09/18 08:27 IMPRESSION: Placement of an 8 Upper [place] left chest tube. There were no immediate complications. Critical Care Progress Note - Nutrition Nutrition: Nutrition Category Date Time Status Diabetic [Consistent Carbohydrate] [DIET] Diets 11/09/18 Lunch Active Attending/Attestation - Attestation I have personally seen and examined this patient.: Yes I have fully participated in the care of the patient.: Yes I have reviewed all pertinent clinical information: Yes Notes (Text): 11/09/18 14:58 I have seen and examined the patient. Medical records, lab studies, and imaging were reviewed by me and a management plan was formulated on multidisciplinary rounds with resident Dr. Garcia. I agree with their documented assessment and plan. Patient had thoracentesis performed, with drainage of foul smelling purulent material. Blood cultures returned positive for gram negative bacteremia. Continue Zosyn, f/u sensitivities. Critical Care Time 35 minutes. Multi-disciplinary rounds were performed with house staff, nursing, speech therapy, respiratory therapy, pharmacy and nutrition with integrated input from the primary team/attending and other consulting services. The documented time is cumulative and includes review of patient data/exams/labs/chart review and examination of the patient on rounds and throughout the day; time is exclusive of any procedures or teaching time.
--- NOTE | 2018-11-09 12:35 | RAD ---
Date of service: 11/09/2018 HISTORY: eval interval change COMPARISON: 11/08/2018 TECHNIQUE: 1 view obtained. FINDINGS: LUNGS: Extensive left basilar/perihilar opacity slightly increased from prior examination. PLEURA: Small left pleural effusion. Unchanged. CARDIOVASCULAR: No aortic atherosclerotic calcification present. Normal cardiac size. No pulmonary vascular congestion. OSSEOUS STRUCTURES: No significant abnormalities. VISUALIZED UPPER ABDOMEN: Normal. OTHER FINDINGS: None. IMPRESSION: Slight increase in left perihilar/basilar opacity. Small left pleural effusion, grossly unchanged.
--- NOTE | 2018-11-09 18:41 | CP.PCM.CON ---
History of Present Illness - History of Present Illness History of Present Illness: 58 y o male came to the ED s/p fall at home Pt reported recent 30lbs weight loss as well as SOB w/ exertion. In ED, pt found to be hypotensive w/ acute anemia and elevated WBC. Pt received 2pRBC and 1FFP. Pt underwent CT C/A/P which found large L pleural effusion, L lung nodule, and possible GEJ mass Underwent emergency Chest tube insertion ID consulted for antibiotic management PMhx: DM2, CHF PSurgHx: Inguinal hernia repair Allergies: NKDA Home meds: Metformin 1000 mg PO bid Fam hx: Mom alive at age 102 with dementia; father unknown PMhx Soc hx: Current 1 ppd cigarette smoker since 1980s; drinks 3 shot glasses of vodka per night, chronic EtOH drinker for 15+ years; denies illicit drug use. Lives at home with mother, primary caregiver for mother. 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 Prior to admission in Aug 2018, did not follow-up with a doctor for 10 years. Review of Systems - Constitutional Constitutional: Anorexia, Chills, Fatigue, Malaise, Weight Loss, Weakness. absent: Fever, Headache, Night Sweats - EENT Eyes: absent: Change in Vision - Cardiovascular Cardiovascular: Dyspnea on Exertion. absent: Chest Pain, Pain Radiating to Arm/Neck/Jaw, Leg Edema, Palpitations - Respiratory Respiratory: Dyspnea on Exertion. absent: Cough, Hemoptysis, Wheezing, Pain on Inspiration, Chest Congestion - Gastrointestinal Gastrointestinal: Constipation. absent: Abdominal Pain, Change in Bowel Habits, Coffee Ground Emesis, Diarrhea, Dyspepsia, Dysphagia, Hematemesis, Hematochezia, Loose Stools, Melena, Nausea, Vomiting - Genitourinary Genitourinary: absent: Difficulty Urinating, Dysuria, Flank Pain, Urinary Incontinence, Urinary Frequency - Integumentary Integumentary: Skin Ulcer. absent: Rash - Neurological Neurological: Dizziness, Weakness. absent: Confusion, Numbness, Headaches, Tingling, Tremor - Endocrine Endocrine: Fatigue Past Patient History - Past Medical History & Family History Past Medical History?: Yes - Past Social History Smoking Status: Light Smoker < 10 Cigarettes Daily - CARDIAC Hx Cardiac Disorders: No Other/Comment: Cardiomegaly. HYPOTENSION - PULMONARY Hx Pneumonia: Yes - NEUROLOGICAL Hx Neurological Disorder: No - HEENT Hx HEENT Problems: No - RENAL Hx Chronic Kidney Disease: No - ENDOCRINE/METABOLIC Hx Endocrine Disorders: Yes Hx Diabetes Mellitus Type 2: Yes - HEMATOLOGICAL/ONCOLOGICAL Hx Anemia: Yes - INTEGUMENTARY Hx Dermatological Problems: No - MUSCULOSKELETAL/RHEUMATOLOGICAL Hx Musculoskeletal Disorders: No Hx Falls: No - GASTROINTESTINAL Hx Gastrointestinal Disorders: Yes - GENITOURINARY/GYNECOLOGICAL Hx Genitourinary Disorders: No - PSYCHIATRIC Hx Substance Use: No - SURGICAL HISTORY Other/Comment: Hernia Removed / 1990 - ANESTHESIA Hx Anesthesia: Yes Hx Anesthesia Reactions: No Hx Malignant Hyperthermia: No Meds Allergies/Adverse Reactions: Allergies Allergy/AdvReac Type Severity Reaction Status Date / Time No Known Allergies Allergy Verified 11/08/18 12:52 - Medications Medications: Current Medications Acetaminophen (Tylenol 325mg Tab) 650 mg PO Q6 PRN PRN Reason: Fever >100.4 F Dextrose (Dextrose 50% Inj) 0 ml IV STAT PRN; Protocol PRN Reason: Hypoglycemia Protocol Dextrose (Glutose 15) 0 gm PO ONCE PRN; Protocol PRN Reason: Hypoglycemia Protocol Folic Acid (Folic Acid) 1 mg PO DAILY [facility] Last Admin: 11/09/18 11:38 Dose: 1 mg Glucagon (Glucagen Diagnostic Kit) 0 mg IM STAT PRN; Protocol PRN Reason: Hypoglycemia Protocol Dextrose (Dextrose 5% In Water 1000 Ml) 1,000 mls @ 0 mls/hr IV .Q0M PRN; Protocol PRN Reason: Hypoglycemia Protocol Sodium Chloride (Sodium Chloride 0.9%) 1,000 mls @ 100 mls/hr IV .Q10H [facility] Last Admin: 11/09/18 17:04 Dose: 100 mls/hr Piperacillin Sod/Tazobactam Sod (Zosyn 3.375 Gm Iv Premix) 3.375 gm in 50 mls @ 100 mls/hr IVPB Q6H [facility]; Protocol Last Admin: 11/09/18 13:34 Dose: 100 mls/hr Vancomycin/Sodium Chloride (Vancomycin 1 Gm/Ns 200 Ml) 1 gm in 200 mls @ 133.333 mls/hr IVPB Q12H [facility]; Protocol Stop: 11/14/18 02:31 Last Admin: 11/09/18 14:25 Dose: 133.333 mls/hr Insulin Human Regular (Novolin R) 0 unit SC ACHS [facility]; Protocol Last Admin: 11/09/18 17:03 Dose: 3 units Multivitamins (Hexavitamin) 1 tab PO DAILY [facility] Last Admin: 11/09/18 11:29 Dose: 1 tab Nicotine (Nicoderm Cq) 1 patch TD DAILY [facility] Last Admin: 11/09/18 09:54 Dose: 1 patch Pantoprazole Sodium (Protonix Inj) 40 mg IVP Q12H [facility] Last Admin: 11/09/18 11:28 Dose: 40 mg Thiamine HCl (Vitamin B1 Tab) 100 mg PO DAILY [facility] Last Admin: 11/09/18 11:29 Dose: 100 mg Physical Exam - Constitutional Appears: No Acute Distress, Cachectic, Chronically Ill - Head Exam Head Exam: ATRAUMATIC, NORMOCEPHALIC - Eye Exam Eye Exam: absent: Scleral icterus Pupil Exam: NORMAL ACCOMODATION - ENT Exam ENT Exam: Mucous Membranes Dry - Neck Exam Neck exam: Negative for: Lymphadenopathy - Respiratory Exam Respiratory Exam: Decreased Breath Sounds, Prolonged Expiratory Phase, Rhonchi Additional comments: left chest tube in place - Cardiovascular Exam Cardiovascular Exam: Tachycardia, REGULAR RHYTHM, +S1, +S2 - GI/Abdominal Exam GI & Abdominal Exam: Diminished Bowel Sounds, Soft. absent: Tenderness - Rectal Exam Rectal Exam: Deferred - Exam Exam: NORMAL INSPECTION - Extremities Exam Extremities exam: Positive for: pedal pulses present. Negative for: calf tenderness, pedal edema - Back Exam Back exam: absent: CVA tenderness (L), CVA tenderness (R), paraspinal tenderness - Neurological Exam Neurological exam: Alert, CN II-XII Intact, Oriented x3, Reflexes Normal - Psychiatric Exam Psychiatric exam: Depressed - Skin Skin Exam: Dry Results - Vital Signs Recent Vital Signs: Last Vital Signs Temp 99.2 F 11/09/18 16:00 Pulse 98 H 11/09/18 18:03 Resp 24 11/09/18 18:03 BP 137/80 11/09/18 18:03 Pulse Ox 76 L 11/09/18 18:03 - Labs Result Diagrams: 11/09/18 06:02 11/09/18 05:45 Labs: Laboratory Results - last 24 hr 11/08/18 11/08/18 11/08/18 13:39 21:43 23:58 WBC RBC Hgb Hct MCV MCH MCHC RDW Plt Count MPV Neut % (Auto) Lymph % (Auto) Forest % (Auto) Eos % (Auto) Baso % (Auto) Neut # (Auto) Lymph # (Auto) Forest # (Auto) Eos # (Auto) Baso # (Auto) Neutrophils % (Manual) Band Neutrophils % Lymphocytes % (Manual) Monocytes % (Manual) Eosinophils % (Manual) Toxic Granulation Platelet Estimate Hypochromasia (manual) Anisocytosis (manual) Ovalocytes PT INR APTT Sodium Potassium Chloride Carbon Dioxide Anion Gap BUN Creatinine Est GFR ( Amer) Est GFR (Non-Af Amer) POC Glucose (mg/dL) 329 H 406 H* Random Glucose Hemoglobin A1c Calcium Phosphorus Magnesium Total Bilirubin AST ALT Alkaline Phosphatase Total Protein Albumin Globulin Albumin/Globulin Ratio Triglycerides Cholesterol LDL Cholesterol Direct HDL Cholesterol Procalcitonin Blood Type AB POSITIVE Blood Type Confirm AB POSITIVE Antibody Screen Negative 11/09/18 11/09/18 11/09/18 00:01 05:06 05:45 WBC RBC Hgb Hct MCV MCH MCHC RDW Plt Count MPV Neut % (Auto) Lymph % (Auto) Forest % (Auto) Eos % (Auto) Baso % (Auto) Neut # (Auto) Lymph # (Auto) [place] # (Auto) Eos # (Auto) Baso # (Auto) Neutrophils % (Manual) Band Neutrophils % Lymphocytes % (Manual) Monocytes % (Manual) Eosinophils % (Manual) Toxic Granulation Platelet Estimate Hypochromasia (manual) Anisocytosis (manual) Ovalocytes PT INR APTT Sodium 137 Potassium 3.6 Chloride 107 Carbon Dioxide 24 Anion Gap 9 L BUN 17 Creatinine 0.5 L Est GFR ( Amer) > 60 Est GFR (Non-Af Amer) > 60 POC Glucose (mg/dL) 424 H* 292 H Random Glucose 249 H Hemoglobin A1c Calcium 10.3 Phosphorus 2.1 L Magnesium 2.1 Total Bilirubin 1.0 AST 13 L ALT 15 L D Alkaline Phosphatase 82 Total Protein 5.3 L Albumin 2.2 L D Globulin 3.2 Albumin/Globulin Ratio 0.7 L Triglycerides 76 Cholesterol < 50 LDL Cholesterol Direct 36 HDL Cholesterol 16 L Procalcitonin Blood Type Blood Type Confirm Antibody Screen 11/09/18 11/09/18 11/09/18 05:45 06:02 06:02 WBC 14.9 H RBC 3.31 L Hgb 8.6 L D Hct 27.1 L MCV 81.8 MCH 26.1 L MCHC 31.9 L RDW 17.0 H Plt Count 252 MPV 8.2 Neut % (Auto) 84.1 H Lymph % (Auto) 5.8 L Forest % (Auto) 9.1 Eos % (Auto) 0.7 Baso % (Auto) 0.3 Neut # (Auto) 12.5 H Lymph # (Auto) 0.9 L Forest # (Auto) 1.4 H Eos # (Auto) 0.1 Baso # (Auto) 0.0 Neutrophils % (Manual) 62 Band Neutrophils % 18 H* Lymphocytes % (Manual) 10 L Monocytes % (Manual) 9 Eosinophils % (Manual) 1 Toxic Granulation Present Platelet Estimate Normal Hypochromasia (manual) Slight Anisocytosis (manual) Slight Ovalocytes Slight PT 13.6 H D INR 1.2 D APTT 28 Sodium Potassium Chloride Carbon Dioxide Anion Gap BUN Creatinine Est GFR ( Amer) Est GFR (Non-Af Amer) POC Glucose (mg/dL) Random Glucose Hemoglobin A1c 8.1 H D Calcium Phosphorus Magnesium Total Bilirubin AST ALT Alkaline Phosphatase Total Protein Albumin Globulin Albumin/Globulin Ratio Triglycerides Cholesterol LDL Cholesterol Direct HDL Cholesterol Procalcitonin Blood Type Blood Type Confirm Antibody Screen 11/09/18 11/09/18 11/09/18 10:44 11:45 16:27 WBC RBC Hgb Hct MCV MCH MCHC RDW Plt Count MPV Neut % (Auto) Lymph % (Auto) Forest % (Auto) Eos % (Auto) Baso % (Auto) Neut # (Auto) Lymph # (Auto) [place] # (Auto) Eos # (Auto) Baso # (Auto) Neutrophils % (Manual) Band Neutrophils % Lymphocytes % (Manual) Monocytes % (Manual) Eosinophils % (Manual) Toxic Granulation Platelet Estimate Hypochromasia (manual) Anisocytosis (manual) Ovalocytes PT INR APTT Sodium Potassium Chloride Carbon Dioxide Anion Gap BUN Creatinine Est GFR ( Amer) Est GFR (Non-Af Amer) POC Glucose (mg/dL) 365 H 248 H Random Glucose Hemoglobin A1c Calcium Phosphorus Magnesium Total Bilirubin AST ALT Alkaline Phosphatase Total Protein Albumin Globulin Albumin/Globulin Ratio Triglycerides Cholesterol LDL Cholesterol Direct HDL Cholesterol Procalcitonin 1.49 H Blood Type Blood Type Confirm Antibody Screen Assessment & Plan (1) Esophageal mass Status: Acute (2) Abnormal CT scan, chest Status: Acute (3) Alcohol use Status: Acute (4) Anemia Status: Acute (5) Cachexia Status: Acute (6) Pleural effusion Status: Acute (7) Sepsis Status: Acute (8) Cirrhosis Status: Acute (9) Diabetes mellitus Status: Acute (10) Gram negative sepsis Status: Acute - Assessment and Plan (Free Text) Assessment: gram negative sepsis source to be determined pleural effusion possible GE - junction mass hx etoh, cirrhosis , cachexia , DM s/p chest tube drainage IV anti biotics in progress await sensitivities
[2018-11-10] MEDS: Piperacill/Tazo 3.375gm in Dex 3.375 GM/50 ML BAG IVPB SCH ×4 (01:42→20:45)
[2018-11-10] MEDS: Vancomycin 1 gm/NS 200 ml 1 GM/200 ML BAG IVPB SCH (02:38)
[2018-11-10] MEDS: Sodium Chloride 0.9% 1,000 ML IV SCH (06:52)
[2018-11-10 07:01] LABS: ALB/GLOB RATIO 0.6 (1.0-2.1); ALBUMIN 1.9 g/dL (3.5-5.0); ALT/SGPT 16 U/L (21-72); AST/SGOT 18 U/L (17-59); BLOOD UREA NITROGEN 12 mg/dL (9-20); CALCIUM 9.5 mg/dl (8.6-10.4); GFR NON-AFRICAN AMERICAN > 60
[2018-11-10 07:03] LABS: BASO % 0.3 % (0.0-2.0); EOS # 0.1 K/uL (0.0-0.7); EOS % 1.5 % (0.0-4.0); HEMOGLOBIN 8.6 g/dL (12.0-18.0); LYMPH # 0.7 K/uL (1.0-4.3); LYMPH % 9.2 % (20.0-40.0); MEAN CELL VOLUME 81.7 fL (80.0-94.0); MEAN CORPUSCULAR HEMOGLOBIN 26.7 pg (27.0-31.0); MEAN CORPUSCULAR HGB CONC 32.6 g/dL (33.0-37.0); MEAN PLATELET VOLUME 8.5 fL (7.2-11.7); MONO # 0.6 K/uL (0.0-0.8); NEUT # 6.3 K/uL (1.8-7.0); NRBC % 0.1 % (0.0-2.0); PLATELET COUNT 164 K/uL (130-400); RBC 3.22 Mil/uL (4.40-5.90); RED CELL DISTRIBUTION WIDTH 16.8 % (11.5-14.5); WHITE BLOOD COUNT 7.7 K/uL (4.8-10.8)
[2018-11-10] MEDS ORDERED: Potassium Chloride 20 mEq ER Tab PO ONE (07:39)
[2018-11-10] MEDS: (Novolin R) Insulin Human Regular 100 units/ml vial SC SCH ×4 (07:57→22:30)
[2018-11-10 08:34] LABS: BANDS 20 % (0-2); EOSINOPHIL 2 % (0-4); LYMPHOCYTE 10 % (20-40); MONOCYTE 8 % (0-10); NEUTROPHIL 60 % (50-75); TOTAL CELLS COUNTED 100
[2018-11-10 08:35] LABS: ANISOCYTOSIS SLIGHT; OVALOCYTES SLIGHT; PLATELET ESTIMATE NORMAL (NORMAL)
[2018-11-10 08:36] LABS: HYPOCHROMIC SLIGHT; POIKILOCYTOSIS SLIGHT; TEARDROP CELLS SLIGHT
[2018-11-10] MEDS: Multiple Vitamins Tab PO SCH (09:31)
--- NOTE | 2018-11-10 09:39 | CP.PCM.PN ---
<Tray Apariciomirian - Last Filed: 11/10/18 11:43> Subjective - Date & Time of Evaluation Date of Evaluation: 11/10/18 Time of Evaluation: 09:30 - Subjective Subjective: PGY-4 GI Fellow Prog Note Pt lying in bed eating breakfast when seen this AM. States that he is doing well. Mild shortness of breath. Tolerating diet with some "dryness" with swallowing. Denied Abd Pain, N/V. 5 point ROS negative other than stated above Objective - Vital Signs/Intake and Output Vital Signs (last 24 hours): Temp Pulse Resp BP Pulse Ox 98.6 F 77 25 H 112/69 97 11/10/18 08:00 11/10/18 08:00 11/10/18 08:00 11/10/18 08:00 11/10/18 06:00 Intake and Output: 11/10/18 11/10/18 06:59 18:59 Intake Total 1650 370 Output Total 350 650 Balance 1300 -280 - Medications Medications: Current Medications Acetaminophen (Tylenol 325mg Tab) 650 mg PO Q6 PRN PRN Reason: Fever >100.4 F Last Admin: 11/10/18 00:40 Dose: 650 mg Dextrose (Dextrose 50% Inj) 0 ml IV STAT PRN; Protocol PRN Reason: Hypoglycemia Protocol Dextrose (Glutose 15) 0 gm PO ONCE PRN; Protocol PRN Reason: Hypoglycemia Protocol Folic Acid (Folic Acid) 1 mg PO DAILY [facility] Last Admin: 11/09/18 11:38 Dose: 1 mg Glucagon (Glucagen Diagnostic Kit) 0 mg IM STAT PRN; Protocol PRN Reason: Hypoglycemia Protocol Dextrose (Dextrose 5% In Water 1000 Ml) 1,000 mls @ 0 mls/hr IV .Q0M PRN; Protocol PRN Reason: Hypoglycemia Protocol Sodium Chloride (Sodium Chloride 0.9%) 1,000 mls @ 100 mls/hr IV .Q10H [facility] Last Admin: 11/10/18 06:52 Dose: 100 mls/hr Piperacillin Sod/Tazobactam Sod (Zosyn 3.375 Gm Iv Premix) 3.375 gm in 50 mls @ 100 mls/hr IVPB Q6H [facility]; Protocol Last Admin: 11/10/18 09:30 Dose: 100 mls/hr Vancomycin/Sodium Chloride (Vancomycin 1 Gm/Ns 200 Ml) 1 gm in 200 mls @ 133.333 mls/hr IVPB Q12H [facility]; Protocol Stop: 11/14/18 02:31 Last Admin: 11/10/18 02:38 Dose: 133.333 mls/hr Potassium Chloride (Potassium Chloride 20 Meq/100 Ml) 20 meq in 100 mls @ 50 mls/hr IVPB Q1H [facility] Stop: 11/10/18 09:44 Last Admin: 11/10/18 09:30 Dose: 50 mls/hr Insulin Human Regular (Novolin R) 0 unit SC ACHS [facility]; Protocol Last Admin: 11/10/18 07:57 Dose: 4 units Multivitamins (Hexavitamin) 1 tab PO DAILY [facility] Last Admin: 11/10/18 09:31 Dose: 1 tab Nicotine (Nicoderm Cq) 1 patch TD DAILY [facility] Last Admin: 11/10/18 09:31 Dose: 1 patch Pantoprazole Sodium (Protonix Inj) 40 mg IVP Q12H [facility] Last Admin: 11/10/18 09:31 Dose: 40 mg Thiamine HCl (Vitamin B1 Tab) 100 mg PO DAILY [facility] Last Admin: 11/10/18 09:31 Dose: 100 mg - Labs Labs: 11/10/18 06:30 11/10/18 06:30 PT 13.6 SECONDS (9.7-12.2) H D 11/09/18 05:45 INR 1.2 D 11/09/18 05:45 APTT 28 SECONDS (21-34) 11/09/18 05:45 - Constitutional Appears: Well, No Acute Distress - Head Exam Head Exam: ATRAUMATIC, NORMAL INSPECTION - Eye Exam Eye Exam: EOMI. absent: Scleral icterus - ENT Exam ENT Exam: Mucous Membranes Moist. absent: Mucous Membranes Dry - Respiratory Exam Respiratory Exam: NORMAL BREATHING PATTERN. absent: Accessory Muscle Use - GI/Abdominal Exam GI & Abdominal Exam: Soft, Normal Bowel Sounds. absent: Bruit, Distended, Firm, Guarding, Rigid, Tenderness, Mass, Pulsatile Mass Assessment and Plan - Assessment and Plan (Free Text) Assessment: 58 year old male with PMH of Diabetes presenting with weakness and fall. Recent discharge 08/25/18 due to sepsis with gram positive bacteremia. GI consultation for symptomatic acute on chronic anemia in setting of weakness, fall, and unintentional weight loss. No prior EGD or colonoscopy. Plan: -POD1(11/09) left thoracentesis-purulent, empyema. 800 cc removed. -Possible VATS Monday per surgery ---May need to delay EGD -cardiology clearance obtained for EGD -respiratory optimization with plan for EGD Monday to evaluate anemia and suspicion for esophageal mass -H/H with appropriate response to transfusion, continue to monitor -no signs of overt GI bleed -continue PPI IV BID -NPO after midnight on Monday for possible EGD Monday -Will follow clinical course Pt seen and examined with Dr. Cunningham; please see attestation for further recs/changes. <Rosi Cunningham - Last Filed: 11/10/18 22:40> Objective - Vital Signs/Intake and Output Vital Signs (last 24 hours): Temp Pulse Resp BP Pulse Ox 98.8 F 84 19 101/62 94 L 11/10/18 20:00 11/10/18 21:01 11/10/18 21:01 11/10/18 21:01 11/10/18 21:01 Intake and Output: 11/10/18 11/11/18 18:59 06:59 Intake Total 1490 Output Total 1300 Balance 190 - Medications Medications: Current Medications Acetaminophen (Tylenol 325mg Tab) 650 mg PO Q6 PRN PRN Reason: Fever >100.4 F Last Admin: 11/10/18 00:40 Dose: 650 mg Albuterol/Ipratropium (Duoneb 3 Mg/0.5 Mg (3 Ml) Ud) 3 ml INH RQ6 [facility] Last Admin: 11/10/18 20:26 Dose: 3 ml Dextrose (Dextrose 50% Inj) 0 ml IV STAT PRN; Protocol PRN Reason: Hypoglycemia Protocol Dextrose (Glutose 15) 0 gm PO ONCE PRN; Protocol PRN Reason: Hypoglycemia Protocol Enoxaparin Sodium (Lovenox) 40 mg SC DAILY [facility] Last Admin: 11/10/18 11:53 Dose: 40 mg Folic Acid (Folic Acid) 1 mg PO DAILY [facility] Last Admin: 11/10/18 09:41 Dose: 1 mg Glucagon (Glucagen Diagnostic Kit) 0 mg IM STAT PRN; Protocol PRN Reason: Hypoglycemia Protocol Dextrose (Dextrose 5% In Water 1000 Ml) 1,000 mls @ 0 mls/hr IV .Q0M PRN; P rotocol PRN Reason: Hypoglycemia Protocol Piperacillin Sod/Tazobactam Sod (Zosyn 3.375 Gm Iv Premix) 3.375 gm in 50 mls @ 100 mls/hr IVPB Q6H [facility]; Protocol Last Admin: 11/10/18 20:45 Dose: 100 mls/hr Insulin Human Regular (Novolin R) 0 unit SC ACHS [facility]; Protocol Multivitamins (Hexavitamin) 1 tab PO DAILY [facility] Last Admin: 11/10/18 09:31 Dose: 1 tab Nicotine (Nicoderm Cq) 1 patch TD DAILY [facility] Last Admin: 11/10/18 09:31 Dose: 1 patch Pantoprazole Sodium (Protonix Susp) 40 mg PO 0600 [facility] Sodium Chloride ([place] Baby Saline 30 Ml) 1 ml RODNEY BID [facility] Last Admin: 11/10/18 17:17 Dose: 1 spr Thiamine HCl (Vitamin B1 Tab) 100 mg PO DAILY [facility] Last Admin: 11/10/18 09:31 Dose: 100 mg - Labs Labs: 11/10/18 06:30 11/10/18 06:30 PT 13.6 SECONDS (9.7-12.2) H D 11/09/18 05:45 INR 1.2 D 11/09/18 05:45 APTT 28 SECONDS (21-34) 11/09/18 05:45 Attending/Attestation - Attestation I have personally seen and examined this patient.: Yes I have fully participated in the care of the patient.: Yes I have reviewed all pertinent clinical information, including history, physical exam and plan: Yes Notes (Text): 11/10/18 22:39 I have seen and examined the patient with the GI fellow. I agree with the above recommendations.
--- NOTE | 2018-11-10 10:10 | CP.PCM.CON ---
History of Present Illness - History of Present Illness History of Present Illness: CC: Cardiac evaluation/Dyspnea/Hypotension This is a 58 y o male with PMHx DM2, CHF (last EF 55%) who presents to the ED today s/p fall at home today. States he was moving from 1 room to another at home while carrying his breakfast this am and felt generalized weakness and felt like his legs were about to give out from underneath him. States he slid down on his legs during fall, did not hit head or lose consciousness during episode, fall was unwitnessed. Also reports having near-fall episode yesterday but states he was able to catch himself on his own and balance prior to fall. Reports decreased PO appetite for the past week, reports last BM was 1 week prior. Admits to hx of chronic constipation and pain with straining, does not take any stool softeners at home for symptoms. Admits to unintentional weight loss of 35 lbs over the past year. States he changed his PMD and followed up with Dr. Price after his prior d/c from [facility] in Aug 2018, was referred to [facility] (Dr. Ma) for further work-up of dyspnea on exertion, which pt states has been present for a long time. Pt states he gets short of breath after only walking several steps at home, and states he has been sitting at home in 1 position more often since his d/c from the hospital in Aug 2018. Pt states he had an abnormal cardiac stress test, but states he did not follow-up with either Dr. Ma or his PMD after he had his test done. Denies hx of sick contacts. Admits to feeling chills. Denies fever, vision changes, lightheadedness, chest pain, sob, n/v/d, abd pain, urinary complaints, melena, hematochezia, numbness/tingling in extremities, or other symptoms. PMhx: DM2, CHF PSurgHx: Inguinal hernia repair Allergies: NKDA Home meds: Metformin 1000 mg PO bid Fam hx: Mom alive at age 102 with dementia; father unknown PMhx Soc hx: Current 1 ppd cigarette smoker since ; drinks 3 shot glasses of vodka per night, chronic EtOH drinker for 15+ years; denies illicit drug use. Lives at home with mother, primary caregiver for mother. 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 Prior to admission in Aug 2018, did not follow-up with a doctor for 10 years. PMD: Dr. Price Primary [facility]: Dr. Ma Present on Admission - Present on Admission Any Indicators Present on Admission: Yes History of DVT/PE: No History of Uncontrolled Diabetes: No Urinary Catheter: No Decubitus Ulcer Present: Yes Decubitus Ulcer Location: sacral Decubitus Ulcer Stage: I History Surgical Site Infection Following: None Review of Systems - Constitutional Constitutional: Anorexia, Chills, Fatigue, Malaise, Weight Loss, Weakness. absent: Fever, Headache, Night Sweats - EENT Eyes: absent: Change in Vision - Cardiovascular Cardiovascular: Dyspnea on Exertion. absent: Chest Pain, Pain Radiating to Arm/Neck/Jaw, Leg Edema, Palpitations - Respiratory Respiratory: Dyspnea on Exertion. absent: Cough, Hemoptysis, Wheezing, Pain on Inspiration, Chest Congestion - Gastrointestinal Gastrointestinal: Constipation. absent: Abdominal Pain, Change in Bowel Habits, Coffee Ground Emesis, Diarrhea, Dyspepsia, Dysphagia, Hematemesis, Hematochezia, Loose Stools, Melena, Nausea, Vomiting - Genitourinary Genitourinary: absent: Difficulty Urinating, Dysuria, Flank Pain, Urinary Incontinence, Urinary Frequency - Integumentary Integumentary: Skin Ulcer. absent: Rash - Neurological Neurological: Dizziness, Weakness. absent: Confusion, Numbness, Headaches, Tingling, Tremor - Endocrine Endocrine: Fatigue Meds Allergies/Adverse Reactions: Allergies Allergy/AdvReac Type Severity Reaction Status Date / Time No Known Allergies Allergy Verified 11/08/18 12:52 Physical Exam - Constitutional Appears: Non-toxic, No Acute Distress, Chronically Ill Additional comments: Pale-appearing on exam - Head Exam Head Exam: ATRAUMATIC, NORMOCEPHALIC - Eye Exam Eye Exam: EOMI, Normal appearance, PERRL - ENT Exam ENT Exam: Mucous Membranes Moist - Respiratory Exam Respiratory Exam: Clear to Auscultation Bilateral, NORMAL BREATHING PATTERN. absent: Rales, Rhonchi, Wheezes - Cardiovascular Exam Cardiovascular Exam: +S1, +S2. absent: Tachycardia, Gallop, Rubs, Systolic Murmur - GI/Abdominal Exam GI & Abdominal Exam: Normal Bowel Sounds, Soft. absent: Distended, Guarding, Organomegaly, Tenderness - Rectal Exam Rectal Exam: NORMAL INSPECTION. absent: Black Stool, Bloody Stool, Hemorrhoids - Extremities Exam Extremities exam: Positive for: full ROM, normal capillary refill, normal ins pection, pedal pulses present - Neurological Exam Neurological exam: Alert, CN II-XII Intact, Oriented x3 - Skin Skin Exam: Dry, Intact, Pallor Additional comments: Stage 1 sacral decubitus ulcer present 10x9 cm in size, no erythema, abnormal drainage or pus appreciated at site Results - Vital Signs Recent Vital Signs: Last Vital Signs Temp 94.8 F L 11/08/18 13:00 Pulse 99 H 11/08/18 13:00 Resp 26 H 11/08/18 13:00 BP 89/56 L 11/08/18 13:00 Pulse Ox 94 L 11/08/18 14:21 - Labs Result Diagrams: 11/08/18 13:39 11/08/18 13:39 Labs: Laboratory Results - last 24 hr 11/08/18 11/08/18 11/08/18 13:31 13:35 13:39 WBC 17.2 H D RBC 2.08 L Hgb 5.0 L* D Hct 16.8 L MCV 80.7 D MCH 23.9 L MCHC 29.7 L RDW 17.8 H Plt Count 324 MPV 8.2 Neut % (Auto) 88.7 H Lymph % (Auto) 2.8 L Clark % (Auto) 8.1 Eos % (Auto) 0.1 Baso % (Auto) 0.3 Neut # (Auto) 15.2 H Lymph # (Auto) 0.5 L Clark # (Auto) 1.4 H Eos # (Auto) 0.0 Baso # (Auto) 0.0 PT INR APTT pO2 21 L VBG pH 7.34 VBG pCO2 25 L VBG HCO3 14.9 VBG Total CO2 14.3 L VBG O2 Sat (Calc) 33.2 L VBG Base Excess -10.5 L VBG Potassium 2.3 L* Sodium 143.0 Chloride 111.0 H Glucose 298 H Lactate 3.5 H Crit Value Called To Power rn Crit Value Called By Alicia collins joy operator Crit Value Read Back Y Blood Gas Notified Time 1337 Potassium Carbon Dioxide Anion Gap BUN Creatinine Est GFR ( Amer) Est GFR (Non-Af Amer) POC Glucose (mg/dL) 450 H* Random Glucose Calcium Phosphorus Magnesium Total Bilirubin AST ALT Alkaline Phosphatase Troponin I NT-Pro-B Natriuret Pep Total Protein Albumin Globulin Albumin/Globulin Ratio Venous Blood Potassium 2.3 L* Urine Color Urine Clarity Urine pH Ur Specific Nordman Urine Protein Urine Glucose (UA) Urine Ketones Urine Blood Urine Nitrate Urine Bilirubin Urine Urobilinogen Ur Leukocyte Esterase Urine WBC (Auto) Urine RBC (Auto) Ur Squamous Epith Cells Urine Bacteria Hyaline Casts Stool Occult Blood Blood Type Antibody Screen 11/08/18 11/08/18 11/08/18 13:39 13:39 13:39 WBC RBC Hgb Hct MCV MCH MCHC RDW Plt Count MPV Neut % (Auto) Lymph % (Auto) Clark % (Auto) Eos % (Auto) Baso % (Auto) Neut # (Auto) Lymph # (Auto) Clark # (Auto) Eos # (Auto) Baso # (Auto) PT 18.7 H INR 1.7 APTT 30 pO2 VBG pH VBG pCO2 VBG HCO3 VBG Total CO2 VBG O2 Sat (Calc) VBG Base Excess VBG Potassium Sodium 138 Chloride 109 H Glucose Lactate Crit Value Called To Crit Value Called By Crit Value Read Back Blood Gas Notified Time Potassium 2.6 L Carbon Dioxide 16 L Anion Gap 16 BUN 14 Creatinine 0.5 L Est GFR ( Amer) > 60 Est GFR (Non-Af Amer) > 60 POC Glucose (mg/dL) Random Glucose 307 H D Calcium 7.7 L Phosphorus 2.2 L Magnesium 1.6 Total Bilirubin 0.3 AST 12 L D ALT 11 L D Alkaline Phosphatase 74 Troponin I < 0.0120 NT-Pro-B Natriuret Pep 421 Total Protein 4.5 L Albumin 1.7 L D Globulin 2.8 Albumin/Globulin Ratio 0.6 L Venous Blood Potassium Urine Color Urine Clarity Urine pH Ur Specific Nordman Urine Protein Urine Glucose (UA) Urine Ketones Urine Blood Urine Nitrate Urine Bilirubin Urine Urobilinogen Ur Leukocyte Esterase Urine WBC (Auto) Urine RBC (Auto) Ur Squamous Epith Cells Urine Bacteria Hyaline Casts Stool Occult Blood Blood Type AB POSITIVE Antibody Screen Negative 11/08/18 11/08/18 11/08/18 13:39 14:07 14:55 WBC RBC Hgb Hct MCV MCH MCHC RDW Plt Count MPV Neut % (Auto) Lymph % (Auto) Clark % (Auto) Eos % (Auto) Baso % (Auto) Neut # (Auto) Lymph # (Auto) Clark # (Auto) Eos # (Auto) Baso # (Auto) PT INR APTT pO2 73 H VBG pH 7.34 VBG pCO2 23 L VBG HCO3 15.9 VBG Total CO2 13.1 L VBG O2 Sat (Calc) 94.4 H VBG Base Excess -11.4 L VBG Potassium 2.0 L* Sodium 135.0 Chloride 104.0 Glucose 244 H Lactate 1.7 Crit Value Called To Dr. kumar Crit Value Called By Afsaneh perez rcp Crit Value Read Back Y Blood Gas Notified Time 1505 Potassium Carbon Dioxide Anion Gap BUN Creatinine Est GFR ( Amer) Est GFR (Non-Af Amer) POC Glucose (mg/dL) Random Glucose Calcium Phosphorus Magnesium Total Bilirubin AST ALT Alkaline Phosphatase Troponin I NT-Pro-B Natriuret Pep Total Protein Albumin Globulin Albumin/Globulin Ratio Venous Blood Potassium 2.0 L* Urine Color Yellow Urine Clarity Hazy Urine pH 5.0 Ur Specific Nordman 1.022 Urine Protein 1+ H Urine Glucose (UA) 3+ H Urine Ketones 2+ H Urine Blood Negative Urine Nitrate Negative Urine Bilirubin Negative Urine Urobilinogen Normal Ur Leukocyte Esterase Neg Urine WBC (Auto) 8 H Urine RBC (Auto) 2 Ur Squamous Epith Cells < 1 Urine Bacteria Rare Hyaline Casts >20 H Stool Occult Blood Negative Blood Type Antibody Screen Assessment & Plan - Assessment and Plan (Free Text) Assessment: This is a 58 y o male with PMHx DM2, CHF (last EF 55%) who presents to the ED today s/p fall at home today. Found to have acute Hgb drop from 10 to 5 as compared to prior admission in Aug 2018, concern to r/o GI bleed, no active bleeding appreciated on exam. Also presented with sepsis: hypothermic, hypotension, leukocytosis and elevated lactate on admission. Also found to have hyperglycemia on admission. Admitted to ICU for further monitoring. GI (Dr. Aaron) and Cardiology (Dr. Dodge) consulted. Plan for possible L-sided thoracentesis for eval of L-sided pleural effusion found on CT chest, r/o malignancy as etiology. Also found to have suspicious mass at GE junction, r/o malignancy. NPO after midnight tomorrow for possible L-sided thoracentesis and EGD. Plan: Anemia/acute drop in Hgb -No active bleeding appreciated on exam -Hgb 5/16.8 on admission, acute drop from Hgb of 10 on prior admission to [facility] in Aug 2018 -Ordered 3 units PRBCs to be transfused, 1 FFP -F/u CBC after transfusion -CT chest/abd/pelvis: appearance of GE junction indeterminate, r/o hiatal hernia vs. possible concomitant underlying mass -GI consulted (Dr. Aaron), recs appreciated -CLD for this evening, then NPO after midnight for possible EGD if clinically stable -Iron studies, ferritin, retic ct ordered L pleural effusion -Pt presented with dyspnea on exertion -CXR on admission: Layering L pleural effusion and/or consolidation -CT chest/abd/pelvis: prior R pleural effusion cleared. Prior L pleural effusion has enlarged and interval loculated large L pleural effision now present, at least 18 cm cephalo caudal by 14 and 7 cm in axial dimensions. Smaller 1.5 cm hypodense nodular opacity borders loculated L pleural effusion, could represent smaller pleural fluid collection possibly loculated perifissural. -R/o malignancy as etiology -NPO after midnight for possible L-sided thoracentesis to be done by IR, will obtain cytology studies Hyperglycemia/hx DM2 -Presented with FS 450 on ED presentation, trending down, does not need insulin drip at this time -Normal AG, bicarb 16 -S/p D50, insulin -Hold home med Metformin on admission due to elevated lactate -ISS -Fingersticks achs -Hypoglycemic protocol as ordered Sepsis -R/o source of infection -Hypothermic on presentation, c/w Odette hugger -Hypotensive, improved with IVFs, cont to monitor -Leukocytosis -Elevated lactate -Blood, urine cxs pending -Sacral ulcer stage 1 c/d/i, less likely source of infection at this time -Vanco/zosyn -Tylenol prn for fevers -IVF at 100 cc/hr Hypokalemia -K 2.6 on admission -May be 2/2 to hyperglycemia -Repleted with KCl -Cont to trend Hx CHF -Not on any current medications outpatient -EKG on admission demonstrates NSR at 99 bpm -Will need to obtain outpatient records from Dr. Ma's office regarding recent stress test -Echo ordered Hx tobacco abuse -Smoking cessation counseling given -Nicotine patch provided Hx EtOH abuse -Does not appear to be in signs of withdrawal at this time, reassess prn -MVT, thiamine, folate PPX: -Protonix bid, SCD -Pharmacologic DVT ppx held to r/o GI bleed Past Patient History - Past Medical History & Family History Past Medical History?: Yes - Past Social History Smoking Status: Light Smoker < 10 Cigarettes Daily - CARDIAC Hx Cardiac Disorders: No Other/Comment: Cardiomegaly. HYPOTENSION - PULMONARY Hx Pneumonia: Yes - NEUROLOGICAL Hx Neurological Disorder: No - HEENT Hx HEENT Problems: No - RENAL Hx Chronic Kidney Disease: No - ENDOCRINE/METABOLIC Hx Endocrine Disorders: Yes Hx Diabetes Mellitus Type 2: Yes - HEMATOLOGICAL/ONCOLOGICAL Hx Anemia: Yes - INTEGUMENTARY Hx Dermatological Problems: No - MUSCULOSKELETAL/RHEUMATOLOGICAL Hx Musculoskeletal Disorders: No Hx Falls: No - GASTROINTESTINAL Hx Gastrointestinal Disorders: Yes - GENITOURINARY/GYNECOLOGICAL Hx Genitourinary Disorders: No - PSYCHIATRIC Hx Substance Use: No - SURGICAL HISTORY Other/Comment: Hernia Removed / 1990 - ANESTHESIA Hx Anesthesia: Yes Hx Anesthesia Reactions: No Hx Malignant Hyperthermia: No Meds Allergies/Adverse Reactions: Allergies Allergy/AdvReac Type Severity Reaction Status Date / Time No Known Allergies Allergy Verified 11/08/18 12:52 - Medications Medications: Current Medications Acetaminophen (Tylenol 325mg Tab) 650 mg PO Q6 PRN PRN Reason: Fever >100.4 F Last Admin: 11/10/18 00:40 Dose: 650 mg Dextrose (Dextrose 50% Inj) 0 ml IV STAT PRN; Protocol PRN Reason: Hypoglycemia Protocol Dextrose (Glutose 15) 0 gm PO ONCE PRN; Protocol PRN Reason: Hypoglycemia Protocol Folic Acid (Folic Acid) 1 mg PO DAILY [facility] Last Admin: 11/10/18 09:41 Dose: 1 mg Glucagon (Glucagen Diagnostic Kit) 0 mg IM STAT PRN; Protocol PRN Reason: Hypoglycemia Protocol Dextrose (Dextrose 5% In Water 1000 Ml) 1,000 mls @ 0 mls/hr IV .Q0M PRN; Protocol PRN Reason: Hypoglycemia Protocol Sodium Chloride (Sodium Chloride 0.9%) 1,000 mls @ 100 mls/hr IV .Q10H [facility]1983 Last Admin: 11/10/18 06:52 Dose: 100 mls/hr Piperacillin Sod/Tazobactam Sod (Zosyn 3.375 Gm Iv Premix) 3.375 gm in 50 mls @ 100 mls/hr IVPB Q6H EDER; Protocol Last Admin: 11/10/18 09:30 Dose: 100 mls/hr Vancomycin/Sodium Chloride (Vancomycin 1 Gm/Ns 200 Ml) 1 gm in 200 mls @ 133.333 mls/hr IVPB Q12H EDER; Protocol Stop: 11/14/18 02:31 Last Admin: 11/10/18 02:38 Dose: 133.333 mls/hr Insulin Human Regular (Novolin R) 0 unit SC ACHS EDER; Protocol Last Admin: 11/10/18 07:57 Dose: 4 units Multivitamins (Hexavitamin) 1 tab PO DAILY EDER Last Admin: 11/10/18 09:31 Dose: 1 tab Nicotine (Nicoderm Cq) 1 patch TD DAILY EDER Last Admin: 11/10/18 09:31 Dose: 1 patch Pantoprazole Sodium (Protonix Inj) 40 mg IVP Q12H EDER Last Admin: 11/10/18 09:31 Dose: 40 mg Thiamine HCl (Vitamin B1 Tab) 100 mg PO DAILY EDER Last Admin: 11/10/18 09:31 Dose: 100 mg Results - Vital Signs Recent Vital Signs: Last Vital Signs Temp 98.6 F 11/10/18 08:00 Pulse 77 11/10/18 08:00 Resp 25 H 11/10/18 08:00 BP 112/69 11/10/18 08:00 Pulse Ox 97 11/10/18 06:00 - Labs Result Diagrams: 11/10/18 06:30 11/10/18 06:30 Labs: Laboratory Results - last 24 hr 11/09/18 11/09/18 11/09/18 10:44 11:45 16:27 WBC RBC Hgb Hct MCV MCH MCHC RDW Plt Count MPV Neut % (Auto) Lymph % (Auto) Clark % (Auto) Eos % (Auto) Baso % (Auto) Neut # (Auto) Lymph # (Auto) Clark # (Auto) Eos # (Auto) Baso # (Auto) Neutrophils % (Manual) Band Neutrophils % Lymphocytes % (Manual) Monocytes % (Manual) Eosinophils % (Manual) Platelet Estimate Hypochromasia (manual) Poikilocytosis (manual Anisocytosis (manual) Tear Drop Cells Ovalocytes Sodium Potassium Chloride Carbon Dioxide Anion Gap BUN Creatinine Est GFR ( Amer) Est GFR (Non-Af Amer) POC Glucose (mg/dL) 365 H 248 H Random Glucose Calcium Phosphorus Magnesium Total Bilirubin AST ALT Alkaline Phosphatase Total Protein Albumin Globulin Albumin/Globulin Ratio Procalcitonin 1.49 H 11/09/18 11/10/18 11/10/18 21:38 06:30 06:30 WBC 7.7 RBC 3.22 L Hgb 8.6 L Hct 26.3 L MCV 81.7 MCH 26.7 L MCHC 32.6 L RDW 16.8 H Plt Count 164 MPV 8.5 Neut % (Auto) 81.0 H Lymph % (Auto) 9.2 L Clark % (Auto) 8.0 Eos % (Auto) 1.5 Baso % (Auto) 0.3 Neut # (Auto) 6.3 Lymph # (Auto) 0.7 L Clark # (Auto) 0.6 Eos # (Auto) 0.1 Baso # (Auto) 0.0 Neutrophils % (Manual) 60 Band Neutrophils % 20 H* Lymphocytes % (Manual) 10 L Monocytes % (Manual) 8 Eosinophils % (Manual) 2 Platelet Estimate Normal Hypochromasia (manual) Slight Poikilocytosis (manual Slight Anisocytosis (manual) Slight Tear Drop Cells Slight Ovalocytes Slight Sodium 134 Potassium 2.9 L Chloride 105 Carbon Dioxide 24 Anion Gap 8 L BUN 12 Creatinine 0.4 L Est GFR ( Amer) > 60 Est GFR (Non-Af Amer) > 60 POC Glucose (mg/dL) 214 H Random Glucose 251 H Calcium 9.5 Phosphorus 3.1 Magnesium 1.8 Total Bilirubin 0.8 AST 18 ALT 16 L Alkaline Phosphatase 84 Total Protein 5.0 L Albumin 1.9 L Globulin 3.1 Albumin/Globulin Ratio 0.6 L Procalcitonin
--- NOTE | 2018-11-10 10:21 | CP.PCM.PN ---
Subjective - Date & Time of Evaluation Date of Evaluation: 11/09/18 Time of Evaluation: 10:30 - Subjective Subjective: Patient seen and evaluated Feels improved to some extent Objective - Vital Signs/Intake and Output Vital Signs (last 24 hours): Temp Pulse Resp BP Pulse Ox 98.2 F 77 26 H 110/67 96 11/09/18 08:00 11/09/18 08:00 11/09/18 08:00 11/09/18 08:02 11/09/18 08:00 Intake and Output: 11/09/18 11/09/18 06:59 18:59 Intake Total 3274 425 Output Total 800 100 Balance 2474 325 - Medications Medications: Current Medications Acetaminophen (Tylenol 325mg Tab) 650 mg PO Q6 PRN PRN Reason: Fever >100.4 F Dextrose (Dextrose 50% Inj) 0 ml IV STAT PRN; Protocol PRN Reason: Hypoglycemia Protocol Dextrose (Glutose 15) 0 gm PO ONCE PRN; Protocol PRN Reason: Hypoglycemia Protocol Folic Acid (Folic Acid) 1 mg PO DAILY [facility] Glucagon (Glucagen Diagnostic Kit) 0 mg IM STAT PRN; Protocol PRN Reason: Hypoglycemia Protocol Dextrose (Dextrose 5% In Water 1000 Ml) 1,000 mls @ 0 mls/hr IV .Q0M PRN; Protocol PRN Reason: Hypoglycemia Protocol Sodium Chloride (Sodium Chloride 0.9%) 1,000 mls @ 100 mls/hr IV .Q10H [facility] Last Admin: 11/09/18 01:50 Dose: 100 mls/hr Piperacillin Sod/Tazobactam Sod (Zosyn 3.375 Gm Iv Premix) 3.375 gm in 50 mls @ 100 mls/hr IVPB Q6H [facility]; Protocol Last Admin: 11/09/18 07:35 Dose: 100 mls/hr Vancomycin/Sodium Chloride (Vancomycin 1 Gm/Ns 200 Ml) 1 gm in 200 mls @ 133.333 mls/hr IVPB Q12H [facility]; Protocol Stop: 11/14/18 02:31 Last Admin: 11/09/18 01:50 Dose: 133.333 mls/hr Insulin Human Regular (Novolin R) 0 unit SC Q6 [facility]; Protocol Last Admin: 11/09/18 06:14 Dose: Not Given Multivitamins (Hexavitamin) 1 tab PO DAILY [facility] Nicotine (Nicoderm Cq) 1 patch TD DAILY [facility] Last Admin: 11/09/18 09:54 Dose: 1 patch Pantoprazole Sodium (Protonix Inj) 40 mg IVP Q12H [facility] Thiamine HCl (Vitamin B1 Tab) 100 mg PO DAILY [facility] - Labs Labs: 11/09/18 06:02 11/09/18 05:45 PT 13.6 SECONDS (9.7-12.2) H D 11/09/18 05:45 INR 1.2 D 11/09/18 05:45 APTT 28 SECONDS (21-34) 11/09/18 05:45 - Constitutional Appears: Non-toxic, Unkempt, Chronically Ill, Other (cachetic pale) - Head Exam Head Exam: NORMAL INSPECTION - Eye Exam Eye Exam: EOMI - ENT Exam ENT Exam: Mucous Membranes Moist - Respiratory Exam Respiratory Exam: Rales (left lower), NORMAL BREATHING PATTERN. absent: Wheezes - Cardiovascular Exam Cardiovascular Exam: REGULAR RHYTHM, +S1, +S2 - GI/Abdominal Exam GI & Abdominal Exam: Soft, Normal Bowel Sounds. absent: Distended, Firm, Guarding, Rigid, Tenderness, Rebound - Extremities Exam Extremities Exam: absent: Pedal Edema, Tenderness - Neurological Exam Neurological Exam: Alert, Awake, Oriented x3 Neuro motor strength exam: Left Upper Extremity: 3, Right Upper Extremity: 3, Left Lower Extremity: 3, Right Lower Extremity: 3 - Skin Skin Exam: Dry, Pallor, Warm Assessment and Plan (1) Sepsis Assessment & Plan: Code sepsis 11/08/18 Criteria: leukocytosis, hypotension, bandemia, hypothemia, unclear source of infection Lactic acid: 3.5-->1.7 Blood culture (11/08/18): pending Urine culture (11/08/18): pending Chest xray (11/08/18): layering left pleural effusion and/or consolidation infectious disease on board Zosyn 3.375g IV Q6H (active since 11/08/18) Vancomycin 1 gram IV Q 12H (active since 11/08/18) Procalcitonin pending Status: Acute (2) Pleural effusion Assessment & Plan: unclear if related to cirrhosis, pneumonia Chest xray (11.08.18): layering left pleural effusion and/or consolidation IR thoracentesis pending Pending fluid studies * albumin, cell count, glucose, ldh, total protein, body culture, tb culture, fungal culture pending echo cardiogram Status: Acute (3) Anemia Assessment & Plan: hgb 10-->5 blood transfusion consent obtained by resident 11/08/18 given 3 units of PRBC overnight night and 1 FFP unit rectal negative ferritin low iron low tibc: 148 low transferrin low reticulocyte count: 2.2--> reticulocyte index: 0.12-->hypoproliferation <2 Folate low B12: 967 (low) occult blood: negative GI pending for EGD Noted CT scan for GE mass, thoracic surgery on case Status: Acute (4) Cirrhosis Assessment & Plan: CT Chest/Abdomen/pelvis IV contrast (11/08/18): prruir amount of ascites and anasarca has improved. further findings per report Abdominal US (08/18/18): limited study. echogenic liver may be seen in hepatic parenchymal disease or fatty infiltrate. nodular hepatic contour. cholelithia sis. gallbladder wall thickening/pericholecystic edema. negative sonographic Cespedes's small abdominal ascites left pleural effusion Hepatitis Panel negative Blood alcohol <10 Patient notes he has drinking 3 shots of vodka X30 years. GI on board Status: Acute (5) Diabetes mellitus Assessment & Plan: Hgba1c: 8.1 Patient is off metformin given elevatec lactic on admission Regular insulin sliding scale sub6H off hermilo/arb given hypotension Status: Acute (6) Abnormal CT scan, chest Assessment & Plan: Ct chest (11/08/18): appearance of GE junction is indetermine a hiatal ernia, 1 consideration concmitant undelrying mass is also consideration GI and Thoracic surgery on board pending EGD Status: Acute (7) Alcohol use Assessment & Plan: ciwa protocol Aspiration precautions seizure precautions will need folate/thiamine/mvi monitor for withdrawal patient is not in withdrawal Status: Acute (8) Tobacco use Assessment & Plan: 1 ppd X30 years nicotone patch advised smoking cessation Status: Acute (9) Cachexia Status: Acute (10) Ulcer of sacral region, stage 1 Assessment & Plan: bed bounnd wound care turn q2h Status: Acute (11) Prophylactic measure Status: Acute Objective - Vital Signs/Intake and Output Vital Signs (last 24 hours): Temp Pulse Resp BP Pulse Ox 98.6 F 77 25 H 112/69 97 11/10/18 08:00 03/30/19 08:00 11/10/18 08:00 11/10/18 08:00 11/10/18 06:00 Intake and Output: 11/10/18 11/10/18 06:59 18:59 Intake Total 1650 760 Output Total 350 650 Balance 1300 110 - Medications Medications: Current Medications Acetaminophen (Tylenol 325mg Tab) 650 mg PO Q6 PRN PRN Reason: Fever >100.4 F Last Admin: 11/10/18 00:40 Dose: 650 mg Dextrose (Dextrose 50% Inj) 0 ml IV STAT PRN; Protocol PRN Reason: Hypoglycemia Protocol Dextrose (Glutose 15) 0 gm PO ONCE PRN; Protocol PRN Reason: Hypoglycemia Protocol Folic Acid (Folic Acid) 1 mg PO DAILY [facility] Last Admin: 11/10/18 09:41 Dose: 1 mg Glucagon (Glucagen Diagnostic Kit) 0 mg IM STAT PRN; Protocol PRN Reason: Hypoglycemia Protocol Dextrose (Dextrose 5% In Water 1000 Ml) 1,000 mls @ 0 mls/hr IV .Q0M PRN; Protocol PRN Reason: Hypoglycemia Protocol Sodium Chloride (Sodium Chloride 0.9%) 1,000 mls @ 100 mls/hr IV .Q10H [facility] Last Admin: 11/10/18 06:52 Dose: 100 mls/hr Piperacillin Sod/Tazobactam Sod (Zosyn 3.375 Gm Iv Premix) 3.375 gm in 50 mls @ 100 mls/hr IVPB Q6H [facility]; Protocol Last Admin: 11/10/18 09:30 Dose: 100 mls/hr Vancomycin/Sodium Chloride (Vancomycin 1 Gm/Ns 200 Ml) 1 gm in 200 mls @ 133.333 mls/hr IVPB Q12H [facility]; Protocol Stop: 11/14/18 02:31 Last Admin: 11/10/18 02:38 Dose: 133.333 mls/hr Insulin Human Regular (Novolin R) 0 unit SC ACHS [facility]; Protocol Last Admin: 11/10/18 07:57 Dose: 4 units Multivitamins (Hexavitamin) 1 tab PO DAILY [facility] Last Admin: 11/10/18 09:31 Dose: 1 tab Nicotine (Nicoderm Cq) 1 patch TD DAILY [facility] Last Admin: 11/10/18 09:31 Dose: 1 patch Pantoprazole Sodium (Protonix Inj) 40 mg IVP Q12H [facility] Last Admin: 11/10/18 09:31 Dose: 40 mg Thiamine HCl (Vitamin B1 Tab) 100 mg PO DAILY [facility] Last Admin: 11/10/18 09:31 Dose: 100 mg - Labs Labs: 11/10/18 06:30 11/10/18 06:30 PT 13.6 SECONDS (9.7-12.2) H D 11/09/18 05:45 INR 1.2 D 11/09/18 05:45 APTT 28 SECONDS (21-34) 11/09/18 05:45
--- NOTE | 2018-11-10 10:37 | CP.PCM.PN ---
Subjective - Date & Time of Evaluation Date of Evaluation: 11/10/18 Time of Evaluation: 06:25 - Subjective Subjective: Thoracic Surgery Progress Note for Dr. Patterson This 58M was seen and examined this AM at bedside no acute events overnight. He had 800cc of purulent output from the chest tube he reports he is more comfortable at this time. He denies chest pain or SOB. He is requesting a diet at this time. Objective - Vital Signs/Intake and Output Vital Signs (last 24 hours): Temp Pulse Resp BP Pulse Ox 98.6 F 85 23 98/55 L 97 11/10/18 08:00 11/10/18 10:01 11/10/18 10:01 11/10/18 10:01 11/10/18 06:00 Intake and Output: 11/10/18 11/10/18 06:59 18:59 Intake Total 1650 910 Output Total 350 650 Balance 1300 260 - Medications Medications: Current Medications Acetaminophen (Tylenol 325mg Tab) 650 mg PO Q6 PRN PRN Reason: Fever >100.4 F Last Admin: 11/10/18 00:40 Dose: 650 mg Dextrose (Dextrose 50% Inj) 0 ml IV STAT PRN; Protocol PRN Reason: Hypoglycemia Protocol Dextrose (Glutose 15) 0 gm PO ONCE PRN; Protocol PRN Reason: Hypoglycemia Protocol Folic Acid (Folic Acid) 1 mg PO DAILY [facility] Last Admin: 11/10/18 09:41 Dose: 1 mg Glucagon (Glucagen Diagnostic Kit) 0 mg IM STAT PRN; Protocol PRN Reason: Hypoglycemia Protocol Dextrose (Dextrose 5% In Water 1000 Ml) 1,000 mls @ 0 mls/hr IV .Q0M PRN; Protocol PRN Reason: Hypoglycemia Protocol Sodium Chloride (Sodium Chloride 0.9%) 1,000 mls @ 100 mls/hr IV .Q10H [facility] Last Admin: 11/10/18 06:52 Dose: 100 mls/hr Piperacillin Sod/Tazobactam Sod (Zosyn 3.375 Gm Iv Premix) 3.375 gm in 50 mls @ 100 mls/hr IVPB Q6H [facility]; Protocol Last Admin: 11/10/18 09:30 Dose: 100 mls/hr Vancomycin/Sodium Chloride (Vancomycin 1 Gm/Ns 200 Ml) 1 gm in 200 mls @ 133.333 mls/hr IVPB Q12H [facility]; Protocol Stop: 11/14/18 02:31 Last Admin: 11/10/18 02:38 Dose: 133.333 mls/hr Insulin Human Regular (Novolin R) 0 unit SC ACHS [facility]; Protocol Last Admin: 11/10/18 07:57 Dose: 4 units Multivitamins (Hexavitamin) 1 tab PO DAILY [facility] Last Admin: 11/10/18 09:31 Dose: 1 tab Nicotine (Nicoderm Cq) 1 patch TD DAILY [facility] Last Admin: 11/10/18 09:31 Dose: 1 patch Pantoprazole Sodium (Protonix Inj) 40 mg IVP Q12H [facility] Last Admin: 11/10/18 09:31 Dose: 40 mg Thiamine HCl (Vitamin B1 Tab) 100 mg PO DAILY [facility] Last Admin: 11/10/18 09:31 Dose: 100 mg - Labs Labs: 11/10/18 06:30 11/10/18 06:30 PT 13.6 SECONDS (9.7-12.2) H D 11/09/18 05:45 INR 1.2 D 11/09/18 05:45 APTT 28 SECONDS (21-34) 11/09/18 05:45 - Constitutional Appears: Non-toxic, No Acute Distress - Head Exam Head Exam: ATRAUMATIC, NORMOCEPHALIC - Eye Exam Eye Exam: EOMI, Normal appearance - ENT Exam ENT Exam: Mucous Membranes Moist - Respiratory Exam Respiratory Exam: NORMAL BREATHING PATTERN - Cardiovascular Exam Cardiovascular Exam: +S1, +S2 - GI/Abdominal Exam GI & Abdominal Exam: Soft. absent: Tenderness - Neurological Exam Neurological Exam: Alert, Awake - Psychiatric Exam Psychiatric exam: Normal Affect, Normal Mood - Skin Skin Exam: Dry, Intact Assessment and Plan - Assessment and Plan (Free Text) Assessment: 58M with Empyema s/p thoracocentesis and drain placement on 11/09 Monitor output Pain control Seral CXR Plan for possible VATS monday further recs per Dr. Yesenia Florian PGY3
[2018-11-10] MEDS: Enoxaparin 40 mg Syringe SC SCH (11:53)
--- NOTE | 2018-11-10 11:55 | CP.PCM.PN ---
Subjective - Date & Time of Evaluation Date of Evaluation: 11/10/18 Time of Evaluation: 11:50 - Subjective Subjective: Medical Attending note: Patient seen and examined at bedside. Patient reports fatigue and tiredness. denies headache, denies chest pain, denies palpitations, denies stomach pain, denies nausea. Reports he feels weak has not gotten out of bed. Objective - Vital Signs/Intake and Output Vital Signs (last 24 hours): Temp Pulse Resp BP Pulse Ox 98.6 F 85 23 98/55 L 97 11/10/18 08:00 11/10/18 10:01 11/10/18 10:01 11/10/18 10:01 11/10/18 06:00 Intake and Output: 11/10/18 11/10/18 06:59 18:59 Intake Total 1650 910 Output Total 350 650 Balance 1300 260 - Medications Medications: Current Medications Acetaminophen (Tylenol 325mg Tab) 650 mg PO Q6 PRN PRN Reason: Fever >100.4 F Last Admin: 11/10/18 00:40 Dose: 650 mg Dextrose (Dextrose 50% Inj) 0 ml IV STAT PRN; Protocol PRN Reason: Hypoglycemia Protocol Dextrose (Glutose 15) 0 gm PO ONCE PRN; Protocol PRN Reason: Hypoglycemia Protocol Enoxaparin Sodium (Lovenox) 40 mg SC DAILY [facility] Folic Acid (Folic Acid) 1 mg PO DAILY [facility] Last Admin: 11/10/18 09:41 Dose: 1 mg Glucagon (Glucagen Diagnostic Kit) 0 mg IM STAT PRN; Protocol PRN Reason: Hypoglycemia Protocol Dextrose (Dextrose 5% In Water 1000 Ml) 1,000 mls @ 0 mls/hr IV .Q0M PRN; Protocol PRN Reason: Hypoglycemia Protocol Piperacillin Sod/Tazobactam Sod (Zosyn 3.375 Gm Iv Premix) 3.375 gm in 50 mls @ 100 mls/hr IVPB Q6H [facility]; Protocol Last Admin: 11/10/18 09:30 Dose: 100 mls/hr Insulin Human Regular (Novolin R) 0 unit SC ACHS [facility]; Protocol Last Admin: 11/10/18 07:57 Dose: 4 units Multivitamins (Hexavitamin) 1 tab PO DAILY [facility] Last Admin: 11/10/18 09:31 Dose: 1 tab Nicotine (Nicoderm Cq) 1 patch TD DAILY [facility] Last Admin: 11/10/18 09:31 Dose: 1 patch Pantoprazole Sodium (Protonix Susp) 40 mg PO 0600 [facility] Thiamine HCl (Vitamin B1 Tab) 100 mg PO DAILY [facility] Last Admin: 11/10/18 09:31 Dose: 100 mg - Labs Labs: 11/10/18 06:30 11/10/18 06:30 PT 13.6 SECONDS (9.7-12.2) H D 11/09/18 05:45 INR 1.2 D 11/09/18 05:45 APTT 28 SECONDS (21-34) 11/09/18 05:45 - Constitutional Appears: Unkempt, Cachectic - Head Exam Head Exam: NORMAL INSPECTION - Eye Exam Eye Exam: EOMI - ENT Exam ENT Exam: Mucous Membranes Moist - Respiratory Exam Respiratory Exam: Decreased Breath Sounds, Rhonchi, NORMAL BREATHING PATTERN. absent: Stridor - Cardiovascular Exam Cardiovascular Exam: REGULAR RHYTHM, +S1, +S2 - GI/Abdominal Exam GI & Abdominal Exam: Soft, Normal Bowel Sounds. absent: Distended, Firm, Guarding, Rigid, Tenderness, Rebound - Extremities Exam Extremities Exam: Pedal Edema (ankle pitting bilateral). absent: Tenderness - Neurological Exam Neurological Exam: Alert, Awake, Oriented x3 - Skin Skin Exam: Dry, Pallor, Warm Assessment and Plan (1) Sepsis Status: Acute (2) Pleural effusion Status: Acute (3) Anemia Status: Acute (4) Cirrhosis Status: Acute (5) Diabetes mellitus Status: Acute (6) Abnormal CT scan, chest Status: Acute (7) Alcohol use Status: Acute (8) Tobacco use Status: Acute (9) Cachexia Status: Acute (10) Ulcer of sacral region, stage 1 Status: Acute (11) Prophylactic measure Status: Acute Attending/Attestation - Attestation I have personally seen and examined this patient.: Yes I have fully participated in the care of the patient.: Yes I have reviewed all pertinent clinical information, including history, physical exam and plan: Yes Notes (Text): Assessment and Plan (1) Sepsis urinary tract infection bacteremia Empyema Assessment & Plan: * Code sepsis 11/08/18 * Infectious Disease (Dr. Bojorquez) on board-->help appreciated * Criteria: leukocytosis, hypotension, bandemia, hypothemia, source of infections: empyema, uti, bacteremia * Lactic acid: 3.5-->1.7 * Tmax: 101.5F * elevated procalcitonin: 1.49 * procalcitonin 11/11/18 * Blood culture (11/08/18): gram negative dinorah * Blood culture (11/08/18): no growth after 48 hours * Blood culture (11/10/18): pending * Urine culture (11/08/18): Enterococcus Faecalis * MRSA (11/08/18): not detected * Pleural fluid (11/09/18): no acid fast bacilli * Pleural fluid (11/09/18): moderate PMNs, moderate gram positive cocci * Chest xray (11/08/18): layering left pleural effusion and/or consolidation * Chest xray (11/09/18): slight increase in left perihilar/basilar opacity. small left pleural effusion, grossly unchanged * Iv abx: * Zosyn 3.375 g IV Q6H (active since 11/08/18) * Vancomycin 1 gram IV Q12 (active since 11/08/18) Status: Acute (2) Empyema; Loculated Left Pleural effusion Assessment & Plan: * Thoracic Surgery (Dr. Bro) on board-->help appreciated * Chest xray (11.08.18): layering left pleural effusion and/or consolidation * Chest xray (11/09/18): slight increase in left perihilar/basilar opacity. small left pleural effusion, grossly unchanged * s/p IR thoracentesis 11/09/18; placement of pigtail catheter * Pending albumin, cell count, glucose, LDH, total protein * Pleural fluid (11/09/18): no acid fast bacilli * Pleural fluid (11/09/18): moderate PMNs, moderate gram positive cocci * Cancelled echo initially completed in Aug 2018 * Echocardiogram (08/20/18): left ventricular function is normal, left ventricular ejection fraction is within the the normal range about 55%, mild mitral valve regurgitation noted * Thoracic surgery following possible VATS consideration if continues to drain and fluid quality does not improve Status: Acute (3) Anemia Assessment & Plan: * Thoracic Surgery (Dr. Bro) on board-->help appreciated * GI (Dr. Aaron) on board-->help appreciated * on admission: hgb 10-->5 * blood transfusion consent obtained by resident 11/08/18 * given 3 units of PRBC overnight night and 1 FFP unit * rectal negative * ferritin low * iron low * tibc: 148 low * transferrin low * Stable 8.6 since blood transfusion 11/08 * Reticulocyte count: 2.2--> reticulocyte index: 0.12-->hypoproliferation <2 * Folate low * B12: 967 (low) * occult blood: negative * CT Chest/Abdomen/pelvis (11/08/18): ascites, anasarca, interval loculated left pleural effusion, appearance of GE junction is indeterminate here a hiatal hernia vs mass * Possible VATS on Monday or EGD pending the output from pigtail Status: Acute (4) Cirrhosis Assessment & Plan: * GI (Dr. Aaron) on board-->help appreciated * CT Chest/Abdomen/pelvis IV contrast (11/08/18): prior amount of ascites and anasarca has improved. further findings per report * Abdominal US (08/18/18): limited study. echogenic liver may be seen in hepatic parenchymal disease or fatty infiltrate. nodular hepatic contour. cholelithiasis. gallbladder wall thickening/pericholecystic edema. negative sonographic Cespedes's small abdominal ascites * Hepatitis Panel negative * Blood alcohol <10 * Patient notes he has drinking 3 shots of vodka X30 years. Status: Acute (5) Diabetes mellitus Assessment & Plan: * Hgba1c: 8.1 * Patient is off metformin given elevated lactic on admission * regular insulin sliding scale qAC HS * Accuchecks QAC and HS Status: Chronic (6) Possible GE junction Mass Assessment & Plan: * Thoracic Surgery (Dr. Bro) on board-->help appreciated * GI (Dr. Aaron) on board-->help appreciated * CT Chest/Abdomen/pelvis (11/08/18): ascites, anasarca, interval loculated left pleural effusion, appearance of GE junction is indeterminate here a hiatal hernia vs mass * Possible VATS vs EGD on Monday Status: Acute (7) Alcohol use Assessment & Plan: * ciwa protocol * Aspiration precautions * seizure precautions * Folic acid 1mg PO Daily * MVI tab PO daily * Thiamine 100mg PO daily * 3 shots of vodka X 30 years history * monitor for withdrawal; patient is not in withdrawal * Abdominal US (08/18/18): limited study. echogenic liver may be seen in hepatic parenchymal disease or fatty infiltrate. nodular hepatic contour. cholelithiasis. gallbladder wall thickening/pericholecystic edema. negative sonographic Cespedes's small abdominal ascites Status: Acute (8) Tobacco use Assessment & Plan: * 1 ppd X30 years * nicotine patch daily * advised smoking cessation to avoid premature aging, cancer risk etc Status: Acute (9) Cachexia Status: Acute * related to alcohol, smoking, malnutrition, possible related to cancer pending GE mass? (10) Ulcer of sacral region, stage 1 Assessment & Plan: * bed bound * wound care * turn q2h Status: Acute (11) Prophylactic measure Status: Acute * PT/OT eval * protonix 40mg IV q12H * Full code * Lovenox 40mg subq daily for DVT ppx Disposition f/u blood culture (11/08); f/u thoracic vs gi regarding VATS or EGD for monday; will need to follow-up outpatient of pigtail catheter from empyema
--- NOTE | 2018-11-10 16:48 | CP.CCUPN ---
CCU Subjective - Physician Review Events Since Last Encounter (Free Text): 11/10/18 16:46 no complaints. clinically stable. chest tube draining well. CCU Objective - Vital Signs / Intake & Output Vital Signs (Last 4 hours): Vital Signs Temp Pulse Resp BP 11/10/18 16:02 95 H 19 136/107 H 11/10/18 16:00 99.8 F H 98 H 17 11/10/18 15:02 90 30 H 136/66 11/10/18 15:00 90 21 11/10/18 14:19 86 23 96/60 L 11/10/18 14:00 84 26 H 11/10/18 13:02 93 H 28 H 133/93 H 11/10/18 13:00 100 H 20 Intake and Output (Last 8hrs): Intake & Output 11/10/18 11/10/18 11/10/18 06:59 14:59 22:59 Intake Total 1000 1190 Output Total 350 850 150 Balance 650 340 -150 Weight 129 lb 6.581 oz Intake: Intake, IV Amount 800 650 Left Forearm 800 450 Left Hand 200 Oral 200 540 Output: Chest Tube Drainage 500 Left 500 Urine 350 350 150 Urine, Voided 350 350 150 Other: # Voids Urine, Voided 0 1 1 # Bowel Movements 0 0 - Physical Exam Head: Positive for: Atraumatic, Normocephalic Pupils: Positive for: PERRL Extroacular Muscles: Positive for: EOMI Mouth: Positive for: Moist Mucous Membranes Respiratory/Chest: Positive for: Clear to Auscultation, Good Air Exchange. Negative for: Respiratory Distress, Accessory Muscle Use, Wheezes, Rales, Rhonchi Cardiovascular: Positive for: Regular Rate and Rhythm, Normal S1, S2. Negative for: Murmurs, Rub, Gallop Abdomen: Positive for: Normal Bowel Sounds. Negative for: Tenderness, Distention, Mass/Organomegaly Lower Extremity: Positive for: Normal Inspection, NORMAL PULSES, Neurovascularly Intact, Capillary Refill < 2 s. Negative for: Edema Neurological: Positive for: GCS=15, CN II-XII Intact, Speech Normal Skin: Positive for: Warm, Dry Psychiatric: Positive for: Alert, Oriented x 3 - Medications Active Medications: Active Medications Generic Name Dose Route Start Last Admin Trade Name Freq PRN Reason Stop Dose Admin Acetaminophen 650 mg 11/08/18 18:40 11/10/18 00:40 Tylenol 325mg Tab PO 650 mg Q6 PRN Administration Fever >100.4 F Dextrose 0 ml 11/08/18 14:57 Dextrose 50% Inj IV STAT PRN Hypoglycemia Protocol Protocol Dextrose 0 gm 11/08/18 14:57 Glutose 15 PO ONCE PRN Hypoglycemia Protocol Protocol Enoxaparin Sodium 40 mg 11/10/18 10:45 11/10/18 11:53 Lovenox SC 40 mg DAILY EDER Administration Folic Acid 1 mg 11/09/18 10:00 11/10/18 09:41 Folic Acid PO 1 mg DAILY EDER Administration Glucagon 0 mg 11/08/18 14:57 Glucagen Diagnostic Kit IM STAT PRN Hypoglycemia Protocol Protocol Dextrose 1,000 mls @ 0 mls/hr 11/08/18 14:57 Dextrose 5% In Water 1000 Ml IV .Q0M PRN Hypoglycemia Protocol Protocol Per Protocol Piperacillin Sod/Tazobactam Sod 3.375 gm in 50 mls @ 100 mls/hr 11/08/18 20:30 11/10/18 14:15 Zosyn 3.375 Gm Iv Premix IVPB 100 mls/hr Q6H EDER Administration Protocol Insulin Human Regular 0 unit 11/09/18 16:30 11/10/18 11:56 Novolin R SC 6 units ACHS EDER Administration Protocol Multivitamins 1 tab 11/09/18 10:00 11/10/18 09:31 Hexavitamin PO 1 tab DAILY EDER Administration Nicotine 1 patch 11/09/18 10:00 11/10/18 09:31 Nicoderm Cq TD 1 patch DAILY EDER Administration Pantoprazole Sodium 40 mg 11/11/18 06:00 Protonix Susp PO 0600 EDER Sodium Chloride 1 ml 11/10/18 18:00 [place] Baby Saline 30 Ml RODNEY BID EDER Thiamine HCl 100 mg 11/09/18 10:00 11/10/18 09:31 Vitamin B1 Tab PO 100 mg DAILY EDER Administration - Patient Studies Lab Studies: Microbiology Studies 11/09/18 10:58 Mycobacterial Culture - Preliminary Other: Please Indicate 11/08/18 14:12 Blood Culture - Preliminary Blood NO GROWTH AFTER 48 HOURS 11/08/18 14:07 Urine Culture - Final Urine,Catheterized Enterococcus Faecalis 11/08/18 16:07 MRSA Culture (Admit) - Final Naris MRSA NOT DETECTED 11/09/18 10:58 Gram Stain - Preliminary Pleural Fluid Lab Studies 11/10/18 11/10/18 11/09/18 Range/Units 06:30 06:30 21:38 WBC 7.7 (4.8-10.8) K/uL RBC 3.22 L (4.40-5.90) Mil/uL Hgb 8.6 L (12.0-18.0) g/dL Hct 26.3 L (35.0-51.0) % MCV 81.7 (80.0-94.0) fL MCH 26.7 L (27.0-31.0) pg MCHC 32.6 L (33.0-37.0) g/dL RDW 16.8 H (11.5-14.5) % Plt Count 164 (130-400) K/uL MPV 8.5 (7.2-11.7) fL Neut % (Auto) 81.0 H (50.0-75.0) % Lymph % (Auto) 9.2 L (20.0-40.0) % Jennings % (Auto) 8.0 (0.0-10.0) % Eos % (Auto) 1.5 (0.0-4.0) % Baso % (Auto) 0.3 (0.0-2.0) % Neut # (Auto) 6.3 (1.8-7.0) K/uL Lymph # (Auto) 0.7 L (1.0-4.3) K/uL Jennings # (Auto) 0.6 (0.0-0.8) K/uL Eos # (Auto) 0.1 (0.0-0.7) K/uL Baso # (Auto) 0.0 (0.0-0.2) K/uL Neutrophils % (Manual) 60 (50-75) % Band Neutrophils % 20 H* (0-2) % Lymphocytes % (Manual) 10 L (20-40) % Monocytes % (Manual) 8 (0-10) % Eosinophils % (Manual) 2 (0-4) % Platelet Estimate Normal (NORMAL) Hypochromasia (manual) Slight Poikilocytosis (manual Slight Anisocytosis (manual) Slight Tear Drop Cells Slight Ovalocytes Slight Sodium 134 (132-148) mmol/L Potassium 2.9 L (3.6-5.2) mmol/L Chloride 105 (98-107) mmol/L Carbon Dioxide 24 (22-30) mmol/L Anion Gap 8 L (10-20) BUN 12 (9-20) mg/dL Creatinine 0.4 L (0.8-1.5) mg/dL Est GFR ( Amer) > 60 Est GFR (Non-Af Amer) > 60 POC Glucose (mg/dL) 214 H (65-110) mg/dL Random Glucose 251 H (75-110) mg/dL Calcium 9.5 (8.6-10.4) mg/dl Phosphorus 3.1 (2.5-4.5) mg/dL Magnesium 1.8 (1.6-2.3) mg/dL Total Bilirubin 0.8 (0.2-1.3) mg/dL AST 18 (17-59) U/L ALT 16 L (21-72) U/L Alkaline Phosphatase 84 (38-126) U/L Total Protein 5.0 L (6.3-8.3) g/dL Albumin 1.9 L (3.5-5.0) g/dL Globulin 3.1 (2.2-3.9) gm/dL Albumin/Globulin Ratio 0.6 L (1.0-2.1) Laboratory Results - last 24 hr 11/09/18 11/10/18 11/10/18 21:38 06:30 06:30 WBC 7.7 RBC 3.22 L Hgb 8.6 L Hct 26.3 L MCV 81.7 MCH 26.7 L MCHC 32.6 L RDW 16.8 H Plt Count 164 MPV 8.5 Neut % (Auto) 81.0 H Lymph % (Auto) 9.2 L Jennings % (Auto) 8.0 Eos % (Auto) 1.5 Baso % (Auto) 0.3 Neut # (Auto) 6.3 Lymph # (Auto) 0.7 L Jennings # (Auto) 0.6 Eos # (Auto) 0.1 Baso # (Auto) 0.0 Neutrophils % (Manual) 60 Band Neutrophils % 20 H* Lymphocytes % (Manual) 10 L Monocytes % (Manual) 8 Eosinophils % (Manual) 2 Platelet Estimate Normal Hypochromasia (manual) Slight Poikilocytosis (manual Slight Anisocytosis (manual) Slight Tear Drop Cells Slight Ovalocytes Slight Sodium 134 Potassium 2.9 L Chloride 105 Carbon Dioxide 24 Anion Gap 8 L BUN 12 Creatinine 0.4 L Est GFR ( Amer) > 60 Est GFR (Non-Af Amer) > 60 POC Glucose (mg/dL) 214 H Random Glucose 251 H Calcium 9.5 Phosphorus 3.1 Magnesium 1.8 Total Bilirubin 0.8 AST 18 ALT 16 L Alkaline Phosphatase 84 Total Protein 5.0 L Albumin 1.9 L Globulin 3.1 Albumin/Globulin Ratio 0.6 L Fingerstick Blood Sugar Results: 307 Review of Systems - Review of Systems All systems: reviewed and no additional remarkable complaints except Critical Care Progress Note - Nutrition Nutrition: Nutrition Category Date Time Status Diabetic [Consistent Carbohydrate] [DIET] Diets 11/09/18 Lunch Active Assessment/Plan (1) Gram negative sepsis Assessment and plan: 58yo M. PMHx DM2, CHF (last EF 55%), functional alcoholism. who p/w weakness, sepsis and severe anemia with hypotension. Neuro: alert and oriented x 3 Pulm: large left complicated empyema. Chest tube placed (11/09), draining foul smelling purulent material. Thoracic surgery consulted, possible VATS to be needed. CV: hemodynamically stable. Hem: leucocytosis downtrending. Renal: no acute issues. Endo: DM type 2, RISS for coverage. GI: diabetic carb consistent diet. GI to do EGD, r/o esophageal carcinoma. ID: sepsis from empyema with gram negative bactermia, continue Zosyn. DVT proph - lovenox GI proph - protonix Code status - full code Critical Care Time spent 35 minutes Multi-disciplinary rounds were performed with house staff, nursing, speech therapy, respiratory therapy, pharmacy and nutrition with integrated input from the primary team/attending and other consulting services. The documented time is cumulative and includes review of patient data/exams/labs/chart review and examination of the patient on rounds and throughout the day; time is exclusive of any procedures or teaching time. Current Visit: Yes Status: Acute
[2018-11-10] MEDS: Sodium Chloride Nasal 0.65% Soln (30ml) NAS SCH (17:17)
[2018-11-10] MEDS: Albuterol-Ipratrop 3 mg / 0.5 (3 ml) UD INH SCH (20:26)
--- NOTE | 2018-11-10 21:58 | CP.PCM.PN ---
Subjective - Date & Time of Evaluation Date of Evaluation: 11/10/18 Time of Evaluation: 16:20 - Subjective Subjective: Patient seen and examined at bedside. No cardiac events noted Some dyspnea still there denies chest pain Objective - Vital Signs/Intake and Output Vital Signs (last 24 hours): Temp Pulse Resp BP Pulse Ox 98.6 F 85 23 98/55 L 97 11/10/18 08:00 11/10/18 10:01 11/10/18 10:01 11/10/18 10:01 11/10/18 06:00 Intake and Output: 11/10/18 11/10/18 06:59 18:59 Intake Total 1650 910 Output Total 350 650 Balance 1300 260 - Medications Medications: Current Medications Acetaminophen (Tylenol 325mg Tab) 650 mg PO Q6 PRN PRN Reason: Fever >100.4 F Last Admin: 11/10/18 00:40 Dose: 650 mg Dextrose (Dextrose 50% Inj) 0 ml IV STAT PRN; Protocol PRN Reason: Hypoglycemia Protocol Dextrose (Glutose 15) 0 gm PO ONCE PRN; Protocol PRN Reason: Hypoglycemia Protocol Enoxaparin Sodium (Lovenox) 40 mg SC DAILY [facility] Folic Acid (Folic Acid) 1 mg PO DAILY [facility] Last Admin: 11/10/18 09:41 Dose: 1 mg Glucagon (Glucagen Diagnostic Kit) 0 mg IM STAT PRN; Protocol PRN Reason: Hypoglycemia Protocol Dextrose (Dextrose 5% In Water 1000 Ml) 1,000 mls @ 0 mls/hr IV .Q0M PRN; Protocol PRN Reason: Hypoglycemia Protocol Piperacillin Sod/Tazobactam Sod (Zosyn 3.375 Gm Iv Premix) 3.375 gm in 50 mls @ 100 mls/hr IVPB Q6H EDER; Protocol Last Admin: 11/10/18 09:30 Dose: 100 mls/hr Insulin Human Regular (Novolin R) 0 unit SC ACHS [facility]; Protocol Last Admin: 11/10/18 07:57 Dose: 4 units Multivitamins (Hexavitamin) 1 tab PO DAILY [facility] Last Admin: 11/10/18 09:31 Dose: 1 tab Nicotine (Nicoderm Cq) 1 patch TD DAILY [facility] Last Admin: 11/10/18 09:31 Dose: 1 patch Pantoprazole Sodium (Protonix Susp) 40 mg PO 0600 [facility] Thiamine HCl (Vitamin B1 Tab) 100 mg PO DAILY [facility] Last Admin: 11/10/18 09:31 Dose: 100 mg - Labs Labs: 11/10/18 06:30 11/10/18 06:30 PT 13.6 SECONDS (9.7-12.2) H D 11/09/18 05:45 INR 1.2 D 11/09/18 05:45 APTT 28 SECONDS (21-34) 11/09/18 05:45 - Constitutional Appears: Unkempt, Cachectic - Head Exam Head Exam: NORMAL INSPECTION - Eye Exam Eye Exam: EOMI - ENT Exam ENT Exam: Mucous Membranes Moist - Respiratory Exam Respiratory Exam: Decreased Breath Sounds, Rhonchi, NORMAL BREATHING PATTERN. absent: Stridor - Cardiovascular Exam Cardiovascular Exam: REGULAR RHYTHM, +S1, +S2 - GI/Abdominal Exam GI & Abdominal Exam: Soft, Normal Bowel Sounds. absent: Distended, Firm, Guarding, Rigid, Tenderness, Rebound - Extremities Exam Extremities Exam: Pedal Edema (ankle pitting bilateral). absent: Tenderness - Neurological Exam Neurological Exam: Alert, Awake, Oriented x3 - Skin Skin Exam: Dry, Pallor, Warm Assessment and Plan (1) Sepsis Status: Acute (2) Pleural effusion Status: Acute (3) Anemia Status: Acute (4) Cirrhosis Status: Acute (5) Diabetes mellitus Status: Acute (6) Abnormal CT scan, chest Status: Acute (7) Alcohol use Status: Acute (8) Tobacco use Status: Acute (9) Cachexia Status: Acute (10) Ulcer of sacral region, stage 1 Status: Acute (11) Prophylactic measure Status: Acute Assessment and Plan (1) Sepsis urinary tract infection bacteremia Empyema Assessment & Plan: * Code sepsis 11/08/18 * Infectious Disease (Dr. Bojorquez) on board-->help appreciated * Criteria: leukocytosis, hypotension, bandemia, hypothemia, source of infections: empyema, uti, bacteremia * Lactic acid: 3.5-->1.7 * Tmax: 101.5F * elevated procalcitonin: 1.49 * procalcitonin 11/11/18 * Blood culture (11/08/18): gram negative dinorah * Blood culture (11/08/18): no growth after 48 hours * Blood culture (11/10/18): pending * Urine culture (11/08/18): Enterococcus Faecalis * MRSA (11/08/18): not detected * Pleural fluid (11/09/18): no acid fast bacilli * Pleural fluid (11/09/18): moderate PMNs, moderate gram positive cocci * Chest xray (11/08/18): layering left pleural effusion and/or consolidation * Chest xray (11/09/18): slight increase in left perihilar/basilar opacity. small left pleural effusion, grossly unchanged * Iv abx: * Zosyn 3.375 g IV Q6H (active since 11/08/18) * Vancomycin 1 gram IV Q12 (active since 11/08/18) Status: Acute (2) Empyema; Loculated Left Pleural effusion Assessment & Plan: * Thoracic Surgery (Dr. Bro) on board-->help appreciated * Chest xray (11.08.18): layering left pleural effusion and/or consolidation * Chest xray (11/09/18): slight increase in left perihilar/basilar opacity. small left pleural effusion, grossly unchanged * s/p IR thoracentesis 11/09/18; placement of pigtail catheter * Pending albumin, cell count, glucose, LDH, total protein * Pleural fluid (11/09/18): no acid fast bacilli * Pleural fluid (11/09/18): moderate PMNs, moderate gram positive cocci * Cancelled echo initially completed in Aug 2018 * Echocardiogram (08/20/18): left ventricular function is normal, left ventricular ejection fraction is within the the normal range about 55%, mild mitral valve regurgitation noted * Thoracic surgery following possible VATS consideration if continues to drain and fluid quality does not improve Status: Acute (3) Anemia Assessment & Plan: * Thoracic Surgery (Dr. Bro) on board-->help appreciated * GI (Dr. Aaron) on board-->help appreciated * on admission: hgb 10-->5 * blood transfusion consent obtained by resident 11/08/18 * given 3 units of PRBC overnight night and 1 FFP unit * rectal negative * ferritin low * iron low * tibc: 148 low * transferrin low * Stable 8.6 since blood transfusion 11/08 * Reticulocyte count: 2.2--> reticulocyte index: 0.12-->hypoproliferation <2 * Folate low * B12: 967 (low) * occult blood: negative * CT Chest/Abdomen/pelvis (11/08/18): ascites, anasarca, interval loculated left pleural effusion, appearance of GE junction is indeterminate here a hiatal hernia vs mass * Possible VATS on Monday or EGD pending the output from pigtail Status: Acute (4) Cirrhosis Assessment & Plan: * GI (Dr. Aaron) on board-->help appreciated * CT Chest/Abdomen/pelvis IV contrast (11/08/18): prior amount of ascites and anasarca has improved. further findings per report * Abdominal US (08/18/18): limited study. echogenic liver may be seen in hepatic parenchymal disease or fatty infiltrate. nodular hepatic contour. cholelithiasis. gallbladder wall thickening/pericholecystic edema. negative sonographic Cespedes's small abdominal ascites * Hepatitis Panel negative * Blood alcohol <10 * Patient notes he has drinking 3 shots of vodka X30 years. Status: Acute (5) Diabetes mellitus Assessment & Plan: * Hgba1c: 8.1 * Patient is off metformin given elevated lactic on admission * regular insulin sliding scale qAC HS * Accuchecks QAC and HS Status: Chronic (6) Possible GE junction Mass Assessment & Plan: * Thoracic Surgery (Dr. Bro) on board-->help appreciated * GI (Dr. Aaron) on board-->help appreciated * CT Chest/Abdomen/pelvis (11/08/18): ascites, anasarca, interval loculated left pleural effusion, appearance of GE junction is indeterminate here a hiatal hernia vs mass * Possible VATS vs EGD on Monday Status: Acute (7) Alcohol use Assessment & Plan: * ciwa protocol * Aspiration precautions * seizure precautions * Folic acid 1mg PO Daily * MVI tab PO daily * Thiamine 100mg PO daily * 3 shots of vodka X 30 years history * monitor for withdrawal; patient is not in withdrawal * Abdominal US (08/18/18): limited study. echogenic liver may be seen in hepatic parenchymal disease or fatty infiltrate. nodular hepatic contour. cholelithiasis. gallbladder wall thickening/pericholecystic edema. negative sonographic Cespedes's small abdominal ascites Status: Acute (8) Tobacco use Assessment & Plan: * 1 ppd X30 years * nicotine patch daily * advised smoking cessation to avoid premature aging, cancer risk etc Status: Acute (9) Cachexia Status: Acute * related to alcohol, smoking, malnutrition, possible related to cancer pending GE mass? (10) Ulcer of sacral region, stage 1 Assessment & Plan: * bed bound * wound care * turn q2h Status: Acute (11) Prophylactic measure Status: Acute * PT/OT eval * protonix 40mg IV q12H * Full code * Lovenox 40mg subq daily for DVT ppx Objective - Vital Signs/Intake and Output Vital Signs (last 24 hours): Temp Pulse Resp BP Pulse Ox 98.8 F 84 19 101/62 94 L 11/10/18 20:00 11/10/18 21:01 11/10/18 21:01 11/10/18 21:01 11/10/18 21:01 Intake and Output: 11/10/18 11/11/18 18:59 06:59 Intake Total 1490 Output Total 1300 Balance 190 - Medications Medications: Current Medications Acetaminophen (Tylenol 325mg Tab) 650 mg PO Q6 PRN PRN Reason: Fever >100.4 F Last Admin: 11/10/18 00:40 Dose: 650 mg Albuterol/Ipratropium (Duoneb 3 Mg/0.5 Mg (3 Ml) Ud) 3 ml INH RQ6 EDER Last Admin: 11/10/18 20:26 Dose: 3 ml Dextrose (Dextrose 50% Inj) 0 ml IV STAT PRN; Protocol PRN Reason: Hypoglycemia Protocol Dextrose (Glutose 15) 0 gm PO ONCE PRN; Protocol PRN Reason: Hypoglycemia Protocol Enoxaparin Sodium (Lovenox) 40 mg SC DAILY [facility] Last Admin: 11/10/18 11:53 Dose: 40 mg Folic Acid (Folic Acid) 1 mg PO DAILY [facility] Last Admin: 11/10/18 09:41 Dose: 1 mg Glucagon (Glucagen Diagnostic Kit) 0 mg IM STAT PRN; Protocol PRN Reason: Hypoglycemia Protocol Dextrose (Dextrose 5% In Water 1000 Ml) 1,000 mls @ 0 mls/hr IV .Q0M PRN; Protocol PRN Reason: Hypoglycemia Protocol Piperacillin Sod/Tazobactam Sod (Zosyn 3.375 Gm Iv Premix) 3.375 gm in 50 mls @ 100 mls/hr IVPB Q6H [facility]; Protocol Last Admin: 11/10/18 20:45 Dose: 100 mls/hr Insulin Human Regular (Novolin R) 0 unit SC ACHS [facility]ER; Protocol Multivitamins (Hexavitamin) 1 tab PO DAILY [facility] Last Admin: 11/10/18 09:31 Dose: 1 tab Nicotine (Nicoderm Cq) 1 patch TD DAILY [facility] Last Admin: 11/10/18 09:31 Dose: 1 patch Pantoprazole Sodium (Protonix Susp) 40 mg PO 0600 [facility] Sodium Chloride ([place] Baby Saline 30 Ml) 1 ml RODNEY BID EDER Last Admin: 11/10/18 17:17 Dose: 1 spr Thiamine HCl (Vitamin B1 Tab) 100 mg PO DAILY [facility] Last Admin: 11/10/18 09:31 Dose: 100 mg - Labs Labs: 11/10/18 06:30 11/10/18 06:30 PT 13.6 SECONDS (9.7-12.2) H D 11/09/18 05:45 INR 1.2 D 11/09/18 05:45 APTT 28 SECONDS (21-34) 11/09/18 05:45
[2018-11-11] MEDS: Albuterol-Ipratrop 3 mg / 0.5 (3 ml) UD INH SCH ×4 (02:44→19:39)
[2018-11-11] MEDS: Piperacill/Tazo 3.375gm in Dex 3.375 GM/50 ML BAG IVPB SCH ×4 (03:30→19:59)
[2018-11-11 05:55] LABS: BASO % 0.1 % (0.0-2.0); EOS # 0.3 K/uL (0.0-0.7); HEMOGLOBIN 8.5 g/dL (12.0-18.0); LYMPH # 0.8 K/uL (1.0-4.3); LYMPH % 8.5 % (20.0-40.0); MEAN CORPUSCULAR HEMOGLOBIN 27.2 pg (27.0-31.0); MEAN CORPUSCULAR HGB CONC 33.2 g/dL (33.0-37.0); MEAN PLATELET VOLUME 8.3 fL (7.2-11.7); MONO # 0.8 K/uL (0.0-0.8); MONO % 7.8 % (0.0-10.0); NEUT # 7.7 K/uL (1.8-7.0); NEUT % 80.6 % (50.0-75.0); PLATELET COUNT 161 K/uL (130-400); RBC 3.12 Mil/uL (4.40-5.90); RED CELL DISTRIBUTION WIDTH 17.8 % (11.5-14.5); WHITE BLOOD COUNT 9.6 K/uL (4.8-10.8)
[2018-11-11] MEDS: Pantoprazole 40 mg Susp UD PO SCH (06:17)
[2018-11-11 06:29] LABS: ALBUMIN 2.4 g/dL (3.5-5.0); BLOOD UREA NITROGEN 8 mg/dL (9-20); CALCIUM 9.7 mg/dl (8.6-10.4); GFR NON-AFRICAN AMERICAN > 60
[2018-11-11 06:30] LABS: ALB/GLOB RATIO 0.9 (1.0-2.1); ALT/SGPT 10 U/L (21-72); AST/SGOT 12 U/L (17-59)
[2018-11-11] MEDS: (Novolin R) Insulin Human Regular 100 units/ml vial SC SCH ×4 (08:00→22:17)
--- NOTE | 2018-11-11 08:24 | CP.PCM.PN ---
<Tray Apariciomirian - Last Filed: 11/11/18 10:32> Subjective - Date & Time of Evaluation Date of Evaluation: 11/11/18 Time of Evaluation: 09:35 - Subjective Subjective: PGY-4 GI Fellow Prog Note Pt lying in bed when seen this AM. States breathing little better than yesterday. No abd pain, n/v and tolerating diet. No BM but states that he feels that he will go later today. 5 point ROS negative other than stated above Objective - Vital Signs/Intake and Output Vital Signs (last 24 hours): Temp Pulse Resp BP Pulse Ox 98.7 F 82 31 H 108/68 95 11/11/18 04:00 11/11/18 06:00 11/11/18 06:00 11/11/18 06:00 11/11/18 06:00 Intake and Output: 11/11/18 11/11/18 06:59 18:59 Intake Total 530 0 Output Total 350 Balance 180 0 - Medications Medications: Current Medications Acetaminophen (Tylenol 325mg Tab) 650 mg PO Q6 PRN PRN Reason: Fever >100.4 F Last Admin: 11/10/18 00:40 Dose: 650 mg Albuterol/Ipratropium (Duoneb 3 Mg/0.5 Mg (3 Ml) Ud) 3 ml INH RQ6 EDER Last Admin: 11/11/18 02:44 Dose: Not Given Dextrose (Dextrose 50% Inj) 0 ml IV STAT PRN; Protocol PRN Reason: Hypoglycemia Protocol Dextrose (Glutose 15) 0 gm PO ONCE PRN; Protocol PRN Reason: Hypoglycemia Protocol Enoxaparin Sodium (Lovenox) 40 mg SC DAILY EDER Last Admin: 11/10/18 11:53 Dose: 40 mg Folic Acid (Folic Acid) 1 mg PO DAILY EDER Last Admin: 11/10/18 09:41 Dose: 1 mg Glucagon (Glucagen Diagnostic Kit) 0 mg IM STAT PRN; Protocol PRN Reason: Hypoglycemia Protocol Dextrose (Dextrose 5% In Water 1000 Ml) 1,000 mls @ 0 mls/hr IV .Q0M PRN; Protocol PRN Reason: Hypoglycemia Protocol Piperacillin Sod/Tazobactam Sod (Zosyn 3.375 Gm Iv Premix) 3.375 gm in 50 mls @ 100 mls/hr IVPB Q6H EDER; Protocol Last Admin: 11/11/18 08:07 Dose: 100 mls/hr Insulin Human Regular (Novolin R) 0 unit SC ACHS EDER; Protocol Last Admin: 11/10/18 22:30 Dose: Not Given Multivitamins (Hexavitamin) 1 tab PO DAILY EDER Last Admin: 11/10/18 09:31 Dose: 1 tab Nicotine (Nicoderm Cq) 1 patch TD DAILY EDER Last Admin: 11/10/18 09:31 Dose: 1 patch Pantoprazole Sodium (Protonix Susp) 40 mg PO 0600 EDER Last Admin: 11/11/18 06:17 Dose: 40 mg Sodium Chloride ([place] Baby Saline 30 Ml) 1 ml RODNEY BID EDER Last Admin: 11/10/18 17:17 Dose: 1 spr Thiamine HCl (Vitamin B1 Tab) 100 mg PO DAILY [facility] Last Admin: 11/10/18 09:31 Dose: 100 mg - Labs Labs: 11/11/18 05:44 11/11/18 05:41 PT 13.6 SECONDS (9.7-12.2) H D 11/09/18 05:45 INR 1.2 D 11/09/18 05:45 APTT 29 SECONDS (21-34) 11/11/18 05:44 - Constitutional Appears: Well, No Acute Distress - Head Exam Head Exam: ATRAUMATIC, NORMAL INSPECTION - Eye Exam Eye Exam: EOMI. absent: Scleral icterus - ENT Exam ENT Exam: Mucous Membranes Moist. absent: Mucous Membranes Dry - Respiratory Exam Respiratory Exam: NORMAL BREATHING PATTERN. absent: Accessory Muscle Use - GI/Abdominal Exam GI & Abdominal Exam: Soft, Normal Bowel Sounds. absent: Bruit, Distended, Firm, Guarding, Rigid, Tenderness, Organomegaly Assessment and Plan - Assessment and Plan (Free Text) Assessment: 58 year old male with PMH of Diabetes presenting with weakness and fall. Recent discharge 08/25/18 due to sepsis with gram positive bacteremia. GI consultation for symptomatic acute on chronic anemia in setting of weakness, fall, and unintentional weight loss. No prior EGD or colonoscopy. Plan: -POD2(11/09) left thoracentesis-purulent, empyema. 800 cc removed; await final analysis, GPCs on stain -Possible VATS Monday per surgery ---Delay EGD (eval possible esophageal mass, anemia) for Tueday or later once stable post-VATS -Cardiology clearance obtained for EGD -H/H with appropriate response to transfusion, continue to monitor -No signs of overt GI bleed -Continue PPI IV BID -NPO after midnight on Monday for VATS -Miralax and good fluid intake -Will follow clinical course Pt seen and examined with Dr. Cunningham; please see attestation for further recs/changes. <Rosi Cunningham - Last Filed: 11/11/18 10:35> Objective - Vital Signs/Intake and Output Vital Signs (last 24 hours): Temp Pulse Resp BP Pulse Ox 98.7 F 83 26 H 96/61 L 93 L 11/11/18 04:00 11/11/18 10:01 11/11/18 10:01 11/11/18 10:01 11/11/18 10:01 Intake and Output: 11/11/18 11/11/18 06:59 18:59 Intake Total 530 290 Output Total 350 275 Balance 180 15 - Medications Medications: Current Medications Acetaminophen (Tylenol 325mg Tab) 650 mg PO Q6 PRN PRN Reason: Fever >100.4 F Last Admin: 11/10/18 00:40 Dose: 650 mg Albuterol/Ipratropium (Duoneb 3 Mg/0.5 Mg (3 Ml) Ud) 3 ml INH RQ6 EDER Last Admin: 11/11/18 07:56 Dose: 3 ml Dextrose (Dextrose 50% Inj) 0 ml IV STAT PRN; Protocol PRN Reason: Hypoglycemia Protocol Dextrose (Glutose 15) 0 gm PO ONCE PRN; Protocol PRN Reason: Hypoglycemia Protocol Enoxaparin Sodium (Lovenox) 40 mg SC DAILY EDER Last Admin: 11/11/18 09:26 Dose: 40 mg Folic Acid (Folic Acid) 1 mg PO DAILY EDER Last Admin: 11/11/18 09:26 Dose: 1 mg Glucagon (Glucagen Diagnostic Kit) 0 mg IM STAT PRN; Protocol PRN Reason: Hypoglycemia Protocol Dextrose (Dextrose 5% In Water 1000 Ml) 1,000 mls @ 0 mls/hr IV .Q0M PRN; Protocol PRN Reason: Hypoglycemia Protocol Piperacillin Sod/Tazobactam Sod (Zosyn 3.375 Gm Iv Premix) 3.375 gm in 50 mls @ 100 mls/hr IVPB Q6H EDER; Protocol Last Admin: 11/11/18 08:07 Dose: 100 mls/hr Insulin Human Regular (Novolin R) 0 unit SC ACHS [facility]; Protocol Last Admin: 11/10/18 22:30 Dose: Not Given Multivitamins (Hexavitamin) 1 tab PO DAILY [facility] Last Admin: 11/11/18 09:26 Dose: 1 tab Nicotine (Nicoderm Cq) 1 patch TD DAILY [facility] Last Admin: 11/11/18 09:25 Dose: 1 patch Pantoprazole Sodium (Protonix Susp) 40 mg PO 0600 [facility] Last Admin: 11/11/18 06:17 Dose: 40 mg Sodium Chloride ([place] Baby Saline 30 Ml) 1 ml RODNEY BID [facility] Last Admin: 11/11/18 09:29 Dose: 1 spr Thiamine HCl (Vitamin B1 Tab) 100 mg PO DAILY [facility] Last Admin: 11/11/18 09:26 Dose: 100 mg - Labs Labs: 11/11/18 05:44 11/11/18 05:41 PT 13.6 SECONDS (9.7-12.2) H D 11/09/18 05:45 INR 1.2 D 11/09/18 05:45 APTT 29 SECONDS (21-34) 11/11/18 05:44 Attending/Attestation - Attestation I have personally seen and examined this patient.: Yes I have fully participated in the care of the patient.: Yes I have reviewed all pertinent clinical information, including history, physical exam and plan: Yes Notes (Text): 11/11/18 10:34 I have seen and examined the patient with the GI fellow. No BMs overnight, feels slightly constipated. Hb stable. Pt scheduled for VATs tmrw. Will postpone EGD to Monday. Otherwise, continue regular diet. Will add Miralax 17 gm po daily to facilitate BMs.
--- NOTE | 2018-11-11 08:57 | CP.PCM.PN ---
Subjective - Date & Time of Evaluation Date of Evaluation: 11/11/18 Time of Evaluation: 08:55 - Subjective Subjective: Thoracic Surgery Dr. Patterson Pt seen and examined @bedside. No acute events overnight. Pt has no complaints. denies CP, SOB, N/V, abd pain, D/C. tolerating diet. (+)BM Pigtail 300cc x24hrs seropurulent Objective - Vital Signs/Intake and Output Vital Signs (last 24 hours): Temp Pulse Resp BP Pulse Ox 98.7 F 82 31 H 108/68 95 11/11/18 04:00 11/11/18 06:00 11/11/18 06:00 11/11/18 06:00 11/11/18 06:00 Intake and Output: 11/11/18 11/11/18 06:59 18:59 Intake Total 530 0 Output Total 350 Balance 180 0 - Medications Medications: Current Medications Acetaminophen (Tylenol 325mg Tab) 650 mg PO Q6 PRN PRN Reason: Fever >100.4 F Last Admin: 11/10/18 00:40 Dose: 650 mg Albuterol/Ipratropium (Duoneb 3 Mg/0.5 Mg (3 Ml) Ud) 3 ml INH RQ6 EDER Last Admin: 11/11/18 02:44 Dose: Not Given Dextrose (Dextrose 50% Inj) 0 ml IV STAT PRN; Protocol PRN Reason: Hypoglycemia Protocol Dextrose (Glutose 15) 0 gm PO ONCE PRN; Protocol PRN Reason: Hypoglycemia Protocol Enoxaparin Sodium (Lovenox) 40 mg SC DAILY EDER Last Admin: 11/10/18 11:53 Dose: 40 mg Folic Acid (Folic Acid) 1 mg PO DAILY EDER Last Admin: 11/10/18 09:41 Dose: 1 mg Glucagon (Glucagen Diagnostic Kit) 0 mg IM STAT PRN; Protocol PRN Reason: Hypoglycemia Protocol Dextrose (Dextrose 5% In Water 1000 Ml) 1,000 mls @ 0 mls/hr IV .Q0M PRN; Protocol PRN Reason: Hypoglycemia Protocol Piperacillin Sod/Tazobactam Sod (Zosyn 3.375 Gm Iv Premix) 3.375 gm in 50 mls @ 100 mls/hr IVPB Q6H EDER; Protocol Last Admin: 11/11/18 08:07 Dose: 100 mls/hr Insulin Human Regular (Novolin R) 0 unit SC ACHS [facility]; Protocol Last Admin: 11/10/18 22:30 Dose: Not Given Multivitamins (Hexavitamin) 1 tab PO DAILY [facility] Last Admin: 11/10/18 09:31 Dose: 1 tab Nicotine (Nicoderm Cq) 1 patch TD DAILY [facility] Last Admin: 11/10/18 09:31 Dose: 1 patch Pantoprazole Sodium (Protonix Susp) 40 mg PO 0600 [facility] Last Admin: 11/11/18 06:17 Dose: 40 mg Sodium Chloride ([place] Baby Saline 30 Ml) 1 ml RODNEY BID [facility] Last Admin: 11/10/18 17:17 Dose: 1 spr Thiamine HCl (Vitamin B1 Tab) 100 mg PO DAILY [facility] Last Admin: 11/10/18 09:31 Dose: 100 mg - Labs Labs: 11/11/18 05:44 11/11/18 05:41 PT 13.6 SECONDS (9.7-12.2) H D 11/09/18 05:45 INR 1.2 D 11/09/18 05:45 APTT 29 SECONDS (21-34) 11/11/18 05:44 - Constitutional Appears: Non-toxic, No Acute Distress - Head Exam Head Exam: NORMAL INSPECTION - Eye Exam Eye Exam: Normal appearance - ENT Exam ENT Exam: Mucous Membranes Moist - Neck Exam Neck Exam: Normal Inspection - Respiratory Exam Respiratory Exam: NORMAL BREATHING PATTERN. absent: Accessory Muscle Use, Respiratory Distress Additional comments: pigtail catheter in place - Cardiovascular Exam Cardiovascular Exam: REGULAR RHYTHM. absent: Bradycardia, Tachycardia - GI/Abdominal Exam GI & Abdominal Exam: Soft. absent: Distended, Tenderness - Extremities Exam Extremities Exam: Normal Inspection - Neurological Exam Neurological Exam: Alert, Awake, Oriented x3 - Psychiatric Exam Psychiatric exam: Normal Affect, Normal Mood - Skin Skin Exam: Dry, Intact, Normal Color, Warm Assessment and Plan - Assessment and Plan (Free Text) Assessment: 58 y/o M w/ Empyema s/p thoracocentesis and pigtail placement on 11/09 Plan: - Monitor pigtail output - f/u Cx - cont Pain management - daily CXR - Plan for possible VATS monday - f/u GI plans for EGD Further recs per Dr. Yesenia Rivas PGY3
[2018-11-11 09:26] LABS: BANDS 25 % (0-2); EOSINOPHIL 2 % (0-4); LYMPHOCYTE 10 % (20-40); MONOCYTE 3 % (0-10); NEUTROPHIL 60 % (50-75); PLATELET ESTIMATE NORMAL (NORMAL); TOTAL CELLS COUNTED 100
[2018-11-11] MEDS: Multiple Vitamins Tab PO SCH (09:26)
[2018-11-11] MEDS: Enoxaparin 40 mg Syringe SC SCH (09:26)
[2018-11-11 09:27] LABS: ANISOCYTOSIS SLIGHT; LARGE PLATELETS PRESENT; OVALOCYTES SLIGHT; POIKILOCYTOSIS SLIGHT
[2018-11-11] MEDS: Sodium Chloride Nasal 0.65% Soln (30ml) NAS SCH ×2 (09:29→17:38)
[2018-11-11] MEDS ORDERED: POLYETHYLENE GLYCOL 3350 17 GM/Dose PACKET PO ONE (10:32)
--- NOTE | 2018-11-11 10:41 | RAD ---
Date of service: 11/11/2018 HISTORY: pigtail; empyema COMPARISON: Comparison is made with 11/09/2018 TECHNIQUE: 1 view obtained. FINDINGS: LUNGS: Interval improvement in the previously seen hazy opacity at the left lung since the previous exam. PLEURA: Persistent left pleural effusion. Drainage catheter extending to the left lower chest again seen. CARDIOVASCULAR: No aortic atherosclerotic calcification present. Normal cardiac size. No pulmonary vascular congestion. OSSEOUS STRUCTURES: No significant abnormalities. VISUALIZED UPPER ABDOMEN: Normal. OTHER FINDINGS: None. IMPRESSION: Interval improvement in the previously seen hazy opacity at the left lung since the prior study. Otherwise no significant interval changes.
--- NOTE | 2018-11-11 15:07 | CP.CCUPN ---
CCU Subjective - Physician Review Events Since Last Encounter (Free Text): 11/11/18 15:02 no complaints. chest tube still draining. CCU Objective - Vital Signs / Intake & Output Vital Signs (Last 4 hours): Vital Signs Temp Pulse Resp BP Pulse Ox 11/11/18 14:01 85 22 112/80 92 L 11/11/18 14:00 84 28 H 98 11/11/18 13:01 82 19 113/73 11/11/18 13:00 82 13 93 L 11/11/18 12:00 98.6 F 81 25 H 99/63 L 94 L 11/11/18 11:30 95 Intake and Output (Last 8hrs): Intake & Output 11/11/18 11/11/18 11/11/18 06:59 14:59 22:59 Intake Total 410 580 Output Total 350 425 Balance 60 155 Weight 131 lb 13.383 oz Intake: Intake, IV Amount 50 100 Left Forearm 50 100 Oral 360 480 Output: Urine 350 425 Urine, Voided 350 425 Other: # Voids Urine, Voided 1 - Physical Exam Head: Positive for: Atraumatic, Normocephalic Pupils: Positive for: PERRL Extroacular Muscles: Positive for: EOMI Mouth: Positive for: Moist Mucous Membranes Respiratory/Chest: Positive for: Clear to Auscultation, Good Air Exchange. Negative for: Respiratory Distress, Accessory Muscle Use, Wheezes, Rales, Rhonchi Cardiovascular: Positive for: Regular Rate and Rhythm, Normal S1, S2. Negative for: Murmurs, Rub, Gallop Abdomen: Positive for: Normal Bowel Sounds. Negative for: Tenderness, Distention, Mass/Organomegaly Lower Extremity: Positive for: Normal Inspection, NORMAL PULSES, Neurovascularly Intact, Capillary Refill < 2 s. Negative for: Edema Neurological: Positive for: GCS=15, CN II-XII Intact, Speech Normal Skin: Positive for: Warm, Dry Psychiatric: Positive for: Alert, Oriented x 3 - Medications Active Medications: Active Medications Generic Name Dose Route Start Last Admin Trade Name Freq PRN Reason Stop Dose Admin Acetaminophen 650 mg 11/08/18 18:40 11/10/18 00:40 Tylenol 325mg Tab PO 650 mg Q6 PRN Administration Fever >100.4 F Albuterol/Ipratropium 3 ml 11/10/18 20:00 11/11/18 13:33 Duoneb 3 Mg/0.5 Mg (3 Ml) Ud INH 3 ml RQ6 EDER Administration Dextrose 0 ml 11/08/18 14:57 Dextrose 50% Inj IV STAT PRN Hypoglycemia Protocol Protocol Dextrose 0 gm 11/08/18 14:57 Glutose 15 PO ONCE PRN Hypoglycemia Protocol Protocol Enoxaparin Sodium 40 mg 11/10/18 10:45 11/11/18 09:26 Lovenox SC 40 mg DAILY EDER Administration Folic Acid 1 mg 11/11/18 10:00 11/11/18 09:26 Folic Acid PO 1 mg DAILY EDER Administration Glucagon 0 mg 11/08/18 14:57 Glucagen Diagnostic Kit IM STAT PRN Hypoglycemia Protocol Protocol Dextrose 1,000 mls @ 0 mls/hr 11/08/18 14:57 Dextrose 5% In Water 1000 Ml IV .Q0M PRN Hypoglycemia Protocol Protocol Per Protocol Piperacillin Sod/Tazobactam Sod 3.375 gm in 50 mls @ 100 mls/hr 11/08/18 20:30 11/11/18 14:28 Zosyn 3.375 Gm Iv Premix IVPB 100 mls/hr Q6H EDER Administration Protocol Insulin Human Regular 0 unit 11/10/18 17:07 11/11/18 11:34 Novolin R SC 3 units ACHS EDER Administration Protocol Multivitamins 1 tab 11/09/18 10:00 11/11/18 09:26 Hexavitamin PO 1 tab DAILY EDER Administration Nicotine 1 patch 11/09/18 10:00 11/11/18 09:25 Nicoderm Cq TD 1 patch DAILY EDER Administration Pantoprazole Sodium 40 mg 11/11/18 06:00 11/11/18 06:17 Protonix Susp PO 40 mg 0600 EDER Administration Sodium Chloride 1 ml 11/10/18 18:00 11/11/18 09:29 [place] Baby Saline 30 Ml RODNEY 1 spr BID EDER Administration Thiamine HCl 100 mg 11/09/18 10:00 11/11/18 09:26 Vitamin B1 Tab PO 100 mg DAILY EDER Administration - Patient Studies Lab Studies: Microbiology Studies 11/08/18 14:12 Blood Culture - Preliminary Blood NO GROWTH AFTER 3 DAYS 11/09/18 10:58 Anaerobic Culture - Final Pleural Fluid NO ANAEROBES ISOLATED. 11/09/18 10:58 Gram Stain - Preliminary Pleural Fluid Body Fluid Culture - Preliminary Gram Positive Cocci 11/08/18 14:13 Blood Culture - Final Blood Klebsiella Pneumoniae Ssp Pneu Gram Stain - Final 11/09/18 10:58 Mycobacterial Culture - Preliminary Other: Please Indicate Lab Studies 11/11/18 11/11/18 11/11/18 Range/Units 05:47 05:44 05:44 WBC 9.6 (4.8-10.8) K/uL RBC 3.12 L (4.40-5.90) Mil/uL Hgb 8.5 L (12.0-18.0) g/dL Hct 25.6 L (35.0-51.0) % MCV 82.0 (80.0-94.0) fL MCH 27.2 (27.0-31.0) pg MCHC 33.2 (33.0-37.0) g/dL RDW 17.8 H (11.5-14.5) % Plt Count 161 (130-400) K/uL MPV 8.3 (7.2-11.7) fL Neut % (Auto) 80.6 H (50.0-75.0) % Lymph % (Auto) 8.5 L (20.0-40.0) % [place] % (Auto) 7.8 (0.0-10.0) % Eos % (Auto) 3.0 (0.0-4.0) % Baso % (Auto) 0.1 (0.0-2.0) % Neut # (Auto) 7.7 H (1.8-7.0) K/uL Lymph # (Auto) 0.8 L (1.0-4.3) K/uL [place] # (Auto) 0.8 (0.0-0.8) K/uL Eos # (Auto) 0.3 (0.0-0.7) K/uL Baso # (Auto) 0.0 (0.0-0.2) K/uL Neutrophils % (Manual) 60 (50-75) % Band Neutrophils % 25 H* (0-2) % Lymphocytes % (Manual) 10 L (20-40) % Monocytes % (Manual) 3 (0-10) % Eosinophils % (Manual) 2 (0-4) % Platelet Estimate Normal (NORMAL) Large Platelets Present Poikilocytosis (manual Slight Anisocytosis (manual) Slight Ovalocytes Slight APTT 29 (21-34) SECONDS Sodium (132-148) mmol/L Potassium (3.6-5.2) mmol/L Chloride (98-107) mmol/L Carbon Dioxide (22-30) mmol/L Anion Gap (10-20) BUN (9-20) mg/dL Creatinine (0.8-1.5) mg/dL Est GFR ( Amer) Est GFR (Non-Af Amer) Random Glucose (75-110) mg/dL Lactic Acid 1.2 (0.7-2.1) mmol/L Calcium (8.6-10.4) mg/dl Phosphorus (2.5-4.5) mg/dL Magnesium (1.6-2.3) mg/dL Total Bilirubin (0.2-1.3) mg/dL AST (17-59) U/L ALT (21-72) U/L Alkaline Phosphatase (38-126) U/L Total Protein (6.3-8.3) g/dL Albumin (3.5-5.0) g/dL Globulin (2.2-3.9) gm/dL Albumin/Globulin Ratio (1.0-2.1) Procalcitonin (0.19-0.49) NG/ML 11/11/18 11/11/18 Range/Units 05:41 05:41 WBC (4.8-10.8) K/uL RBC (4.40-5.90) Mil/uL Hgb (12.0-18.0) g/dL Hct (35.0-51.0) % MCV (80.0-94.0) fL MCH (27.0-31.0) pg MCHC (33.0-37.0) g/dL RDW (11.5-14.5) % Plt Count (130-400) K/uL MPV (7.2-11.7) fL Neut % (Auto) (50.0-75.0) % Lymph % (Auto) (20.0-40.0) % [place] % (Auto) (0.0-10.0) % Eos % (Auto) (0.0-4.0) % Baso % (Auto) (0.0-2.0) % Neut # (Auto) (1.8-7.0) K/uL Lymph # (Auto) (1.0-4.3) K/uL [place] # (Auto) (0.0-0.8) K/uL Eos # (Auto) (0.0-0.7) K/uL Baso # (Auto) (0.0-0.2) K/uL Neutrophils % (Manual) (50-75) % Band Neutrophils % (0-2) % Lymphocytes % (Manual) (20-40) % Monocytes % (Manual) (0-10) % Eosinophils % (Manual) (0-4) % Platelet Estimate (NORMAL) Large Platelets Poikilocytosis (manual Anisocytosis (manual) Ovalocytes APTT (21-34) SECONDS Sodium 133 (132-148) mmol/L Potassium 3.6 (3.6-5.2) mmol/L Chloride 103 (98-107) mmol/L Carbon Dioxide 24 (22-30) mmol/L Anion Gap 9 L (10-20) BUN 8 L (9-20) mg/dL Creatinine 0.4 L (0.8-1.5) mg/dL Est GFR ( Amer) > 60 Est GFR (Non-Af Amer) > 60 Random Glucose 214 H (75-110) mg/dL Lactic Acid (0.7-2.1) mmol/L Calcium 9.7 (8.6-10.4) mg/dl Phosphorus 2.8 (2.5-4.5) mg/dL Magnesium 1.8 (1.6-2.3) mg/dL Total Bilirubin 0.6 (0.2-1.3) mg/dL AST 12 L D (17-59) U/L ALT 10 L D (21-72) U/L Alkaline Phosphatase 86 (38-126) U/L Total Protein 5.0 L (6.3-8.3) g/dL Albumin 2.4 L D (3.5-5.0) g/dL Globulin 2.6 (2.2-3.9) gm/dL Albumin/Globulin Ratio 0.9 L (1.0-2.1) Procalcitonin 0.83 H (0.19-0.49) NG/ML Laboratory Results - last 24 hr 11/11/18 11/11/18 11/11/18 05:41 05:41 05:44 WBC 9.6 RBC 3.12 L Hgb 8.5 L Hct 25.6 L MCV 82.0 MCH 27.2 MCHC 33.2 RDW 17.8 H Plt Count 161 MPV 8.3 Neut % (Auto) 80.6 H Lymph % (Auto) 8.5 L [place] % (Auto) 7.8 Eos % (Auto) 3.0 Baso % (Auto) 0.1 Neut # (Auto) 7.7 H Lymph # (Auto) 0.8 L [place] # (Auto) 0.8 Eos # (Auto) 0.3 Baso # (Auto) 0.0 Neutrophils % (Manual) 60 Band Neutrophils % 25 H* Lymphocytes % (Manual) 10 L Monocytes % (Manual) 3 Eosinophils % (Manual) 2 Platelet Estimate Normal Large Platelets Present Poikilocytosis (manual Slight Anisocytosis (manual) Slight Ovalocytes Slight APTT Sodium 133 Potassium 3.6 Chloride 103 Carbon Dioxide 24 Anion Gap 9 L BUN 8 L Creatinine 0.4 L Est GFR ( Amer) > 60 Est GFR (Non-Af Amer) > 60 Random Glucose 214 H Lactic Acid Calcium 9.7 Phosphorus 2.8 Magnesium 1.8 Total Bilirubin 0.6 AST 12 L D ALT 10 L D Alkaline Phosphatase 86 Total Protein 5.0 L Albumin 2.4 L D Globulin 2.6 Albumin/Globulin Ratio 0.9 L Procalcitonin 0.83 H 11/11/18 11/11/18 05:44 05:47 WBC RBC Hgb Hct MCV MCH MCHC RDW Plt Count MPV Neut % (Auto) Lymph % (Auto) [place] % (Auto) Eos % (Auto) Baso % (Auto) Neut # (Auto) Lymph # (Auto) [place] # (Auto) Eos # (Auto) Baso # (Auto) Neutrophils % (Manual) Band Neutrophils % Lymphocytes % (Manual) Monocytes % (Manual) Eosinophils % (Manual) Platelet Estimate Large Platelets Poikilocytosis (manual Anisocytosis (manual) Ovalocytes APTT 29 Sodium Potassium Chloride Carbon Dioxide Anion Gap BUN Creatinine Est GFR ( Amer) Est GFR (Non-Af Amer) Random Glucose Lactic Acid 1.2 Calcium Phosphorus Magnesium Total Bilirubin AST ALT Alkaline Phosphatase Total Protein Albumin Globulin Albumin/Globulin Ratio Procalcitonin Radiology Impressions: Radiology Impressions Chest X-Ray 11/11/18 08:39 IMPRESSION: Interval improvement in the previously seen hazy opacity at the left lung since the prior study. Otherwise no significant interval changes. Fingerstick Blood Sugar Results: 237 Review of Systems - Review of Systems All systems: reviewed and no additional remarkable complaints except (no complaints) Critical Care Progress Note - Nutrition Nutrition: Nutrition Category Date Time Status Diabetic [Consistent Carbohydrate] [DIET] Diets 11/09/18 Lunch Active NPO Diet [DIET] Diets 11/12/18 Breakfast Active Assessment/Plan (1) Gram negative sepsis Assessment and plan: 58yo M. PMHx DM2, CHF (last EF 55%), functional alcoholism. who p/w weakness, sepsis and severe anemia with hypotension. Neuro: alert and oriented x 3 Pulm: large left complicated empyema. Chest tube placed (11/09), draining foul smelling purulent material. Thoracic surgery consulted, possible VATS to be needed. CV: hemodynamically stable. Hem: leucocytosis downtrending, persistent bandemia. Renal: no acute issues. Endo: DM type 2, RISS for coverage. GI: diabetic carb consistent diet. GI to do EGD, r/o esophageal carcinoma. ID: sepsis from empyema with gram negative Klebsiella bacteremia, gram positive cocci in pleural fluid, incidentally E. faecalis in urine, continue Zosyn. DVT proph - lovenox GI proph - protonix Code status - full code Critical Care Time spent 35 minutes Multi-disciplinary rounds were performed with house staff, nursing, speech therapy, respiratory therapy, pharmacy and nutrition with integrated input from the primary team/attending and other consulting services. The documented time is cumulative and includes review of patient data/exams/labs/chart review and examination of the patient on rounds and throughout the day; time is exclusive of any procedures or teaching time. Current Visit: Yes Status: Acute
--- NOTE | 2018-11-11 15:23 | CP.PCM.PN ---
Subjective - Date & Time of Evaluation Date of Evaluation: 11/11/18 Time of Evaluation: 09:00 - Subjective Subjective: awake alert NAD oriented x3 no fever chest tube in place Objective - Vital Signs/Intake and Output Vital Signs (last 24 hours): Temp Pulse Resp BP Pulse Ox 98.6 F 85 22 112/80 92 L 11/11/18 12:00 11/11/18 14:01 11/11/18 14:01 11/11/18 14:01 11/11/18 14:01 Intake and Output: 11/11/18 11/11/18 06:59 18:59 Intake Total 530 580 Output Total 350 425 Balance 180 155 - Medications Medications: Current Medications Acetaminophen (Tylenol 325mg Tab) 650 mg PO Q6 PRN PRN Reason: Fever >100.4 F Last Admin: 11/10/18 00:40 Dose: 650 mg Albuterol/Ipratropium (Duoneb 3 Mg/0.5 Mg (3 Ml) Ud) 3 ml INH RQ6 [facility] Last Admin: 11/11/18 13:33 Dose: 3 ml Dextrose (Dextrose 50% Inj) 0 ml IV STAT PRN; Protocol PRN Reason: Hypoglycemia Protocol Dextrose (Glutose 15) 0 gm PO ONCE PRN; Protocol PRN Reason: Hypoglycemia Protocol Enoxaparin Sodium (Lovenox) 40 mg SC DAILY [facility] Last Admin: 11/11/18 09:26 Dose: 40 mg Folic Acid (Folic Acid) 1 mg PO DAILY [facility] Last Admin: 11/11/18 09:26 Dose: 1 mg Glucagon (Glucagen Diagnostic Kit) 0 mg IM STAT PRN; Protocol PRN Reason: Hypoglycemia Protocol Dextrose (Dextrose 5% In Water 1000 Ml) 1,000 mls @ 0 mls/hr IV .Q0M PRN; Protocol PRN Reason: Hypoglycemia Protocol Piperacillin Sod/Tazobactam Sod (Zosyn 3.375 Gm Iv Premix) 3.375 gm in 50 mls @ 100 mls/hr IVPB Q6H [facility]; Protocol Last Admin: 11/11/18 14:28 Dose: 100 mls/hr Insulin Human Regular (Novolin R) 0 unit SC ACHS [facility]; Protocol Last Admin: 11/11/18 11:34 Dose: 3 units Multivitamins (Hexavitamin) 1 tab PO DAILY [facility] Last Admin: 11/11/18 09:26 Dose: 1 tab Nicotine (Nicoderm Cq) 1 patch TD DAILY [facility] Last Admin: 11/11/18 09:25 Dose: 1 patch Pantoprazole Sodium (Protonix Susp) 40 mg PO 0600 [facility] Last Admin: 11/11/18 06:17 Dose: 40 mg Sodium Chloride ([place] Baby Saline 30 Ml) 1 ml RODNEY BID [facility] Last Admin: 11/11/18 09:29 Dose: 1 spr Thiamine HCl (Vitamin B1 Tab) 100 mg PO DAILY [facility] Last Admin: 11/11/18 09:26 Dose: 100 mg - Labs Labs: 11/11/18 05:44 11/11/18 05:41 PT 13.6 SECONDS (9.7-12.2) H D 11/09/18 05:45 INR 1.2 D 11/09/18 05:45 APTT 29 SECONDS (21-34) 11/11/18 05:44 - Constitutional Appears: Non-toxic, Cachectic, Chronically Ill - Head Exam Head Exam: NORMOCEPHALIC - Eye Exam Eye Exam: absent: Scleral icterus - ENT Exam ENT Exam: Mucous Membranes Dry - Neck Exam Neck Exam: absent: Lymphadenopathy - Respiratory Exam Respiratory Exam: Decreased Breath Sounds, Prolonged Expiratory Phase, Rhonchi - Cardiovascular Exam Cardiovascular Exam: REGULAR RHYTHM - GI/Abdominal Exam GI & Abdominal Exam: Distended, Soft - Rectal Exam Rectal Exam: Deferred - Exam Exam: absent: NORMAL INSPECTION - Extremities Exam Extremities Exam: absent: Pedal Edema - Back Exam Back Exam: absent: CVA tenderness (L), CVA tenderness (R) - Neurological Exam Neurological Exam: Alert, Awake, CN II-XII Intact. absent: Normal Gait - Psychiatric Exam Psychiatric exam: Depressed - Skin Skin Exam: Dry Assessment and Plan (1) Esophageal mass Status: Acute (2) Abnormal CT scan, chest Status: Acute (3) Alcohol use Status: Acute (4) Anemia Status: Acute (5) Cachexia Status: Acute (6) Pleural effusion Status: Acute (7) Sepsis Status: Acute (8) Cirrhosis Status: Acute (9) Diabetes mellitus Status: Acute (10) Gram negative sepsis Status: Acute - Assessment and Plan (Free Text) Assessment: severe sepsis secondary to empyema Blood + Klebs Urine + enterococcus chest drainage c/s pending r/o esophageal Ca Hx ETOH abuse cont IV antibiotics
--- NOTE | 2018-11-11 15:32 | CP.PCM.PN ---
Subjective - Date & Time of Evaluation Date of Evaluation: 11/11/18 Time of Evaluation: 15:30 - Subjective Subjective: Medical attending note Patient seen, examined. No family present at bedside. Patient reports weakness is mildly improving. Patient reports he has an appetite today. Patient started on regular diet. Patient completed both orange juice a bit of mashed potatoes. Patient denies chest pain, did not has mild cough. Patient denies nausea denies abdominal pain. Awaiting from surgery if patient will be definitively for VATS tomorrow will need to follow-up with surgery in regards to if VATS tomorrow then EGD would need to be need to be delayed. Objective - Vital Signs/Intake and Output Vital Signs (last 24 hours): Temp Pulse Resp BP Pulse Ox 98.6 F 85 22 112/80 92 L 11/11/18 12:00 11/11/18 14:01 11/11/18 14:01 11/11/18 14:01 11/11/18 14:01 Intake and Output: 11/11/18 11/11/18 06:59 18:59 Intake Total 530 580 Output Total 350 425 Balance 180 155 - Medications Medications: Current Medications Acetaminophen (Tylenol 325mg Tab) 650 mg PO Q6 PRN PRN Reason: Fever >100.4 F Last Admin: 11/10/18 00:40 Dose: 650 mg Albuterol/Ipratropium (Duoneb 3 Mg/0.5 Mg (3 Ml) Ud) 3 ml INH RQ6 [facility] Last Admin: 11/11/18 13:33 Dose: 3 ml Dextrose (Dextrose 50% Inj) 0 ml IV STAT PRN; Protocol PRN Reason: Hypoglycemia Protocol Dextrose (Glutose 15) 0 gm PO ONCE PRN; Protocol PRN Reason: Hypoglycemia Protocol Enoxaparin Sodium (Lovenox) 40 mg SC DAILY [facility] Last Admin: 11/11/18 09:26 Dose: 40 mg Folic Acid (Folic Acid) 1 mg PO DAILY [facility] Last Admin: 11/11/18 09:26 Dose: 1 mg Glucagon (Glucagen Diagnostic Kit) 0 mg IM STAT PRN; Protocol PRN Reason: Hypoglycemia Protocol Dextrose (Dextrose 5% In Water 1000 Ml) 1,000 mls @ 0 mls/hr IV .Q0M PRN; Pro tocol PRN Reason: Hypoglycemia Protocol Piperacillin Sod/Tazobactam Sod (Zosyn 3.375 Gm Iv Premix) 3.375 gm in 50 mls @ 100 mls/hr IVPB Q6H [facility]; Protocol Last Admin: 11/11/18 14:28 Dose: 100 mls/hr Insulin Human Regular (Novolin R) 0 unit SC ACHS [facility]; Protocol Last Admin: 11/11/18 11:34 Dose: 3 units Multivitamins (Hexavitamin) 1 tab PO DAILY [facility] Last Admin: 11/11/18 09:26 Dose: 1 tab Nicotine (Nicoderm Cq) 1 patch TD DAILY [facility] Last Admin: 11/11/18 09:25 Dose: 1 patch Pantoprazole Sodium (Protonix Susp) 40 mg PO 0600 [facility] Last Admin: 11/11/18 06:17 Dose: 40 mg Sodium Chloride ([place] Baby Saline 30 Ml) 1 ml RODNEY BID [facility] Last Admin: 11/11/18 09:29 Dose: 1 spr Thiamine HCl (Vitamin B1 Tab) 100 mg PO DAILY [facility] Last Admin: 11/11/18 09:26 Dose: 100 mg - Labs Labs: 11/11/18 05:44 11/11/18 05:41 PT 13.6 SECONDS (9.7-12.2) H D 11/09/18 05:45 INR 1.2 D 11/09/18 05:45 APTT 29 SECONDS (21-34) 11/11/18 05:44 - Constitutional Appears: Non-toxic, No Acute Distress, Unkempt, Cachectic - Head Exam Head Exam: NORMAL INSPECTION - Eye Exam Eye Exam: EOMI - ENT Exam ENT Exam: Mucous Membranes Moist - Respiratory Exam Respiratory Exam: Rhonchi, NORMAL BREATHING PATTERN. absent: Wheezes - Cardiovascular Exam Cardiovascular Exam: REGULAR RHYTHM, +S1, +S2 - GI/Abdominal Exam GI & Abdominal Exam: Soft, Normal Bowel Sounds. absent: Distended, Firm, Guarding, Rigid, Tenderness, Rebound - Extremities Exam Extremities Exam: Pedal Edema (ankles pitting). absent: Tenderness - Neurological Exam Neurological Exam: Alert, Awake, Oriented x3 - Psychiatric Exam Psychiatric exam: Normal Affect, Normal Mood - Skin Skin Exam: Dry, Pallor, Warm Assessment and Plan (1) Sepsis Status: Acute (2) Pleural effusion Status: Acute (3) Anemia Status: Acute (4) Cirrhosis Status: Acute (5) Diabetes mellitus Status: Acute (6) Abnormal CT scan, chest Status: Acute (7) Alcohol use Status: Acute (8) Tobacco use Status: Acute (9) Cachexia Status: Acute (10) Ulcer of sacral region, stage 1 Status: Acute (11) Prophylactic measure Status: Acute Attending/Attestation - Attestation I have personally seen and examined this patient.: Yes I have fully participated in the care of the patient.: Yes I have reviewed all pertinent clinical information, including history, physical exam and plan: Yes Notes (Text): Patient seen and examined. Patient reports mildly improving. No family present at bedside. Patient currently on Zosyn. White count has normalized however patient has bands. Patient does have a left loculated pleural effusion status post pigtail insertion that continues to drain purulent fluid. Awaiting final decision from thoracic surgery as of tomorrow morning to see if patient will warrant a VATS pr ocedure. Patient is also pending EGD procedure for possible GE junction mass. Patient is not in acute withdrawal. Noted patient appetite mildly improving. Patient will benefit from physical therapy and occupational therapy. Pending EGD results to know if needed hemoptic or not. Patient will also likely need psych his underlying depression given that the discussion I had with his family last night. Patient's sister Korin as well as blood embolic present last night we had a quite a bit discussion in terms of review hospitalization in terms of patient sepsis, empyema, bacteremia, and suspicion for possible GE junction mass. As well as possible underlying depression given his extensive alcohol and smoking history. Family does report concern and does agree that that team approach ventricular involvement family would be appropriate for the patient. 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 Patient sister was would like to be including both the consents for VATS and or EGD to understand what is going on with her brother. Will endorsed to my colleague Dr. Nestor Sebastian will be covering starting tomorrow. Assessment and Plan (1) Sepsis urinary tract infection bacteremia Empyema Assessment & Plan: * Code sepsis 11/08/18 * Infectious Disease (Dr. Bojorquez) on board-->help appreciated * Criteria: leukocytosis, hypotension, bandemia, hypothemia, source of in fections: empyema, uti, bacteremia * Lactic acid: 3.5-->1.7 * elevated procalcitonin: 1.49-->0.83 * procalcitonin 11/11/18 * Blood culture (11/08/18): Klebsiella pneumoniae * Sensitive to Zosyn with LUPE of less than 4 * Blood culture (11/08/18): no growth * Blood culture (11/10/18): pending * Urine culture (11/08/18): Enterococcus Faecalis * Restarted vancomycin today in light of culture results * MRSA (11/08/18): not detected * Pleural fluid (11/09/18): no acid fast bacilli * Pleural fluid (11/09/18): moderate PMNs, moderate gram positive cocci * Chest xray (11/08/18): layering left pleural effusion and/or consolidation * Chest xray (11/09/18): slight increase in left perihilar/basilar opacity. small left pleural effusion, grossly unchanged * Iv abx: * Zosyn 3.375 g IV Q6H (active since 11/08/18) * Vancomycin 1 gram IV Q12 (active since 11/08/18) d/c 11/10/18 Status: Acute (2) Empyema; Loculated Left Pleural effusion Assessment & Plan: * Thoracic Surgery (Dr. Bro) on board-->help appreciated * Follow-up with surgery in the morning to determine bouts is on schedule for Monday, November 12, 2018 * Chest xray (11.08.18): layering left pleural effusion and/or consolidation * Chest xray (11/09/18): slight increase in left perihilar/basilar opacity. small left pleural effusion, grossly unchanged * s/p IR thoracentesis 11/09/18; placement of pigtail catheter * Pending albumin, cell count, glucose, LDH, total protein * Pleural fluid (11/09/18): no acid fast bacilli * Pleural fluid (11/09/18): moderate PMNs, moderate gram positive cocci * Cancelled echo initially completed in Aug 2018 * Echocardiogram (08/20/18): left ventricular function is normal, left ventricular ejection fraction is within the the normal range about 55%, mild mitral valve regurgitation noted Status: Acute (3) Anemia Assessment & Plan: * Thoracic Surgery (Dr. Bro) on board-->help appreciated * GI (Dr. Aaron) on board-->help appreciated * on admission: hgb 10-->5 * blood transfusion consent obtained by resident 11/08/18 * given 3 units of PRBC overnight night and 1 FFP unit * rectal negative * ferritin low * iron low * tibc: 148 low * transferrin low * Stable 8.6 since blood transfusion 11/08 * Reticulocyte count: 2.2--> reticulocyte index: 0.12-->hypoproliferation <2 * Folate low * B12: 967 (low) * occult blood: negative * CT Chest/Abdomen/pelvis (11/08/18): ascites, anasarca, interval loculated left pleural effusion, appearance of GE junction is indeterminate here a hiatal hernia vs mass * Possible VATS on Monday or EGD pending the output from pigtail Status: Acute (4) Cirrhosis Assessment & Plan: * GI (Dr. Aaron) on board-->help appreciated * CT Chest/Abdomen/pelvis IV contrast (11/08/18): prior amount of ascites and anasarca has improved. further findings per report * Abdominal US (08/18/18): limited study. echogenic liver may be seen in hepatic parenchymal disease or fatty infiltrate. nodular hepatic contour. cholelithia sis. gallbladder wall thickening/pericholecystic edema. negative sonographic Cespedes's small abdominal ascites * Hepatitis Panel negative * Blood alcohol <10 * Patient notes he has drinking 3 shots of vodka X30 years. Status: Acute (5) Diabetes mellitus Assessment & Plan: * Hgba1c: 8.1 * Patient is off metformin given elevated lactic on admission * regular insulin sliding scale qAC HS * Accuchecks QAC and HS Status: Chronic (6) Possible GE junction Mass Assessment & Plan: * Thoracic Surgery (Dr. Bro) on board-->help appreciated * GI (Dr. Aaron) on board-->help appreciated * CT Chest/Abdomen/pelvis (11/08/18): ascites, anasarca, interval loculated left pleural effusion, appearance of GE junction is indeterminate here a hiatal hernia vs mass * Possible VATS vs EGD on Monday Status: Acute (7) Alcohol use Assessment & Plan: * ciwa protocol * Aspiration precautions * seizure precautions * Folic acid 1mg PO Daily * MVI tab PO daily * Thiamine 100mg PO daily * 3 shots of vodka X 30 years history * monitor for withdrawal; patient is not in withdrawal * Abdominal US (08/18/18): limited study. echogenic liver may be seen in hepatic parenchymal disease or fatty infiltrate. nodular hepatic contour. cholelit hiasis. gallbladder wall thickening/pericholecystic edema. negative sonographic Cespedes's small abdominal ascites Status: Acute (8) Tobacco use Assessment & Plan: * 1 ppd X30 years * nicotine patch daily * advised smoking cessation to avoid premature aging, cancer risk etc Status: Acute (9) Cachexia Status: Acute * related to alcohol, smoking, malnutrition, possible related to cancer pending GE mass? (10) Ulcer of sacral region, stage 1 Assessment & Plan: * bed bound * wound care * turn q2h Status: Acute (11) Prophylactic measure Status: Acute * PT/OT eval * protonix 40mg IV q12H * Full code * Lovenox 40mg subq daily for DVT ppx Disposition f/u blood culture (11/08); f/u thoracic vs gi regarding VATS or EGD for monday; will start vancomycin given urine culture results: Patient procedure of VATS please hold Lovenox prior to procedure also to note please involve patient's sister Korin would like to be involved in patient's care as his advocate since patient is not . I spoke with patient's [id number] and Korin updated in terms of brothers care.
--- NOTE | 2018-11-11 15:55 | RAD ---
Date of service: 11/09/2018 HISTORY: Status post left chest tube. COMPARISON: Comparison is made with 11/09/2018 TECHNIQUE: 1 view obtained. FINDINGS: LUNGS: Persistent hazy opacity at the left lung. The left lung is smaller in size than the right. PLEURA: Suspicious for left pleural effusion. Drainage catheter seen extending to the lower portion of the left chest. CARDIOVASCULAR: No aortic atherosclerotic calcification present. Normal cardiac size. No pulmonary vascular congestion. OSSEOUS STRUCTURES: No significant abnormalities. VISUALIZED UPPER ABDOMEN: Normal. OTHER FINDINGS: None. IMPRESSION: Persistent hazy opacities in the left lung associated with left pleural effusion.
[2018-11-11] MEDS ORDERED: Vancomycin 1 gm/NS 200 ml 1 GM/200 ML BAG IVPB SCH (19:30)
--- NOTE | 2018-11-11 21:49 | CP.PCM.PN ---
Subjective - Date & Time of Evaluation Date of Evaluation: 11/11/18 Time of Evaluation: 13:05 - Subjective Subjective: Patient with no cardiac events Objective - Vital Signs/Intake and Output Vital Signs (last 24 hours): Temp Pulse Resp BP Pulse Ox 98.6 F 85 22 112/80 92 L 11/11/18 12:00 11/11/18 14:01 11/11/18 14:01 11/11/18 14:01 11/11/18 14:01 Intake and Output: 11/11/18 11/11/18 06:59 18:59 Intake Total 530 580 Output Total 350 425 Balance 180 155 - Medications Medications: Current Medications Acetaminophen (Tylenol 325mg Tab) 650 mg PO Q6 PRN PRN Reason: Fever >100.4 F Last Admin: 11/10/18 00:40 Dose: 650 mg Albuterol/Ipratropium (Duoneb 3 Mg/0.5 Mg (3 Ml) Ud) 3 ml INH RQ6 [facility] Last Admin: 11/11/18 13:33 Dose: 3 ml Dextrose (Dextrose 50% Inj) 0 ml IV STAT PRN; Protocol PRN Reason: Hypoglycemia Protocol Dextrose (Glutose 15) 0 gm PO ONCE PRN; Protocol PRN Reason: Hypoglycemia Protocol Enoxaparin Sodium (Lovenox) 40 mg SC DAILY [facility] Last Admin: 11/11/18 09:26 Dose: 40 mg Folic Acid (Folic Acid) 1 mg PO DAILY [facility] Last Admin: 11/11/18 09:26 Dose: 1 mg Glucagon (Glucagen Diagnostic Kit) 0 mg IM STAT PRN; Protocol PRN Reason: Hypoglycemia Protocol Dextrose (Dextrose 5% In Water 1000 Ml) 1,000 mls @ 0 mls/hr IV .Q0M PRN; Protocol PRN Reason: Hypoglycemia Protocol Piperacillin Sod/Tazobactam Sod (Zosyn 3.375 Gm Iv Premix) 3.375 gm in 50 mls @ 100 mls/hr IVPB Q6H [facility]; Protocol Last Admin: 11/11/18 14:28 Dose: 100 mls/hr Insulin Human Regular (Novolin R) 0 unit SC ACHS [facility]; Protocol Last Admin: 11/11/18 11:34 Dose: 3 units Multivitamins (Hexavitamin) 1 tab PO DAILY [facility] Last Admin: 11/11/18 09:26 Dose: 1 tab Nicotine (Nicoderm Cq) 1 patch TD DAILY [facility] Last Admin: 11/11/18 09:25 Dose: 1 patch Pantoprazole Sodium (Protonix Susp) 40 mg PO 0600 [facility] Last Admin: 11/11/18 06:17 Dose: 40 mg Sodium Chloride (Americus Baby Saline 30 Ml) 1 ml RODNEY BID [facility] Last Admin: 11/11/18 09:29 Dose: 1 spr Thiamine HCl (Vitamin B1 Tab) 100 mg PO DAILY [facility] Last Admin: 11/11/18 09:26 Dose: 100 mg - Labs Labs: 11/11/18 05:44 11/11/18 05:41 PT 13.6 SECONDS (9.7-12.2) H D 11/09/18 05:45 INR 1.2 D 11/09/18 05:45 APTT 29 SECONDS (21-34) 11/11/18 05:44 - Constitutional Appears: Non-toxic, No Acute Distress, Unkempt, Cachectic - Head Exam Head Exam: NORMAL INSPECTION - Eye Exam Eye Exam: EOMI - ENT Exam ENT Exam: Mucous Membranes Moist - Respiratory Exam Respiratory Exam: Rhonchi, NORMAL BREATHING PATTERN. absent: Wheezes - Cardiovascular Exam Cardiovascular Exam: REGULAR RHYTHM, +S1, +S2 - GI/Abdominal Exam GI & Abdominal Exam: Soft, Normal Bowel Sounds. absent: Distended, Firm, Guarding, Rigid, Tenderness, Rebound - Extremities Exam Extremities Exam: Pedal Edema (ankles pitting). absent: Tenderness - Neurological Exam Neurological Exam: Alert, Awake, Oriented x3 - Psychiatric Exam Psychiatric exam: Normal Affect, Normal Mood - Skin Skin Exam: Dry, Pallor, Warm Assessment and Plan (1) Sepsis urinary tract infection bacteremia Empyema Assessment & Plan: * Code sepsis 11/08/18 * Infectious Disease (Dr. Bojorquez) on board-->help appreciated * Criteria: leukocytosis, hypotension, bandemia, hypothemia, source of infections: empyema, uti, bacteremia * Lactic acid: 3.5-->1.7 * elevated procalcitonin: 1.49-->0.83 * procalcitonin 11/11/18 * Blood culture (11/08/18): Klebsiella pneumoniae * Sensitive to Zosyn with LUPE of less than 4 * Blood culture (11/08/18): no growth * Blood culture (11/10/18): pending * Urine culture (11/08/18): Enterococcus Faecalis * Restarted vancomycin today in light of culture results * MRSA (11/08/18): not detected * Pleural fluid (11/09/18): no acid fast bacilli * Pleural fluid (11/09/18): moderate PMNs, moderate gram positive cocci * Chest xray (11/08/18): layering left pleural effusion and/or consolidation * Chest xray (11/09/18): slight increase in left perihilar/basilar opacity. small left pleural effusion, grossly unchanged * Iv abx: * Zosyn 3.375 g IV Q6H (active since 11/08/18) * Vancomycin 1 gram IV Q12 (active since 11/08/18) d/c 11/10/18 Status: Acute (2) Empyema; Loculated Left Pleural effusion Assessment & Plan: * Thoracic Surgery (Dr. Bro) on board-->help appreciated * Follow-up with surgery in the morning to determine bouts is on schedule for Monday, November 12, 2018 * Chest xray (11.08.18): layering left pleural effusion and/or consolidation * Chest xray (11/09/18): slight increase in left perihilar/basilar opacity. small left pleural effusion, grossly unchanged * s/p IR thoracentesis 11/09/18; placement of pigtail catheter * Pending albumin, cell count, glucose, LDH, total protein * Pleural fluid (11/09/18): no acid fast bacilli * Pleural fluid (11/09/18): moderate PMNs, moderate gram positive cocci * Cancelled echo initially completed in Aug 2018 * Echocardiogram (08/20/18): left ventricular function is normal, left ventricular ejection fraction is within the the normal range about 55%, mild mitral valve regurgitation noted Status: Acute (3) Anemia Assessment & Plan: * Thoracic Surgery (Dr. Bro) on board-->help appreciated * GI (Dr. Aaron) on board-->help appreciated * on admission: hgb 10-->5 * blood transfusion consent obtained by resident 11/08/18 * given 3 units of PRBC overnight night and 1 FFP unit * rectal negative * ferritin low * iron low * tibc: 148 low * transferrin low * Stable 8.6 since blood transfusion 11/08 * Reticulocyte count: 2.2--> reticulocyte index: 0.12-->hypoproliferation <2 * Folate low * B12: 967 (low) * occult blood: negative * CT Chest/Abdomen/pelvis (11/08/18): ascites, anasarca, interval loculated left pleural effusion, appearance of GE junction is indeterminate here a hiatal hernia vs mass * Possible VATS on Monday or EGD pending the output from pigtail Status: Acute (4) Cirrhosis Assessment & Plan: * GI (Dr. Aaron) on board-->help appreciated * CT Chest/Abdomen/pelvis IV contrast (11/08/18): prior amount of ascites and anasarca has improved. further findings per report * Abdominal US (08/18/18): limited study. echogenic liver may be seen in hepatic parenchymal disease or fatty infiltrate. nodular hepatic contour. cholelithiasis. gallbladder wall thickening/pericholecystic edema. negative sonographic Cespedes's small abdominal ascites * Hepatitis Panel negative * Blood alcohol <10 * Patient notes he has drinking 3 shots of vodka X30 years. Status: Acute (5) Diabetes mellitus Assessment & Plan: * Hgba1c: 8.1 * Patient is off metformin given elevated lactic on admission * regular insulin sliding scale qAC HS * Accuchecks QAC and HS Status: Chronic (6) Possible GE junction Mass Assessment & Plan: * Thoracic Surgery (Dr. Bro) on board-->help appreciated * GI (Dr. Aaron) on board-->help appreciated * CT Chest/Abdomen/pelvis (11/08/18): ascites, anasarca, interval loculated left pleural effusion, appearance of GE junction is indeterminate here a hiatal hernia vs mass * Possible VATS vs EGD on Monday Status: Acute (7) Alcohol use Assessment & Plan: * ciwa protocol * Aspiration precautions * seizure precautions * Folic acid 1mg PO Daily * MVI tab PO daily * Thiamine 100mg PO daily * 3 shots of vodka X 30 years history * monitor for withdrawal; patient is not in withdrawal * Abdominal US (08/18/18): limited study. echogenic liver may be seen in hepatic parenchymal disease or fatty infiltrate. nodular hepatic contour. cholelithiasis. gallbladder wall thickening/pericholecystic edema. negative sonographic Cespedes's small abdominal ascites Status: Acute (8) Tobacco use Assessment & Plan: * 1 ppd X30 years * nicotine patch daily * advised smoking cessation to avoid premature aging, cancer risk etc Status: Acute (9) Cachexia Status: Acute * related to alcohol, smoking, malnutrition, possible related to cancer pending GE mass? (10) Ulcer of sacral region, stage 1 Assessment & Plan: * bed bound * wound care * turn q2h Status: Acute (11) Prophylactic measure Status: Acute * PT/OT eval * protonix 40mg IV q12H * Full code * Lovenox 40mg subq daily for DVT ppx Objective - Vital Signs/Intake and Output Vital Signs (last 24 hours): Temp Pulse Resp BP Pulse Ox 98.3 F 87 33 H 103/70 96 11/11/18 20:00 11/11/18 20:01 11/11/18 20:01 11/11/18 20:01 11/11/18 20:01 Intake and Output: 11/11/18 11/12/18 18:59 06:59 Intake Total 700 200 Output Total 815 Balance -115 200 - Medications Medications: Current Medications Acetaminophen (Tylenol 325mg Tab) 650 mg PO Q6 PRN PRN Reason: Fever >100.4 F Last Admin: 11/10/18 00:40 Dose: 650 mg Albuterol/Ipratropium (Duoneb 3 Mg/0.5 Mg (3 Ml) Ud) 3 ml INH RQ6 [facility] Last Admin: 11/11/18 19:39 Dose: 3 ml Dextrose (Dextrose 50% Inj) 0 ml IV STAT PRN; Protocol PRN Reason: Hypoglycemia Protocol Dextrose (Glutose 15) 0 gm PO ONCE PRN; Protocol PRN Reason: Hypoglycemia Protocol Enoxaparin Sodium (Lovenox) 40 mg SC DAILY [facility] Last Admin: 11/11/18 09:26 Dose: 40 mg Folic Acid (Folic Acid) 1 mg PO DAILY [facility] Last Admin: 11/11/18 09:26 Dose: 1 mg Glucagon (Glucagen Diagnostic Kit) 0 mg IM STAT PRN; Protocol PRN Reason: Hypoglycemia Protocol Piperacillin Sod/Tazobactam Sod (Zosyn 3.375 Gm Iv Premix) 3.375 gm in 50 mls @ 100 mls/hr IVPB Q6H [facility]; Protocol Last Admin: 11/11/18 19:59 Dose: 100 mls/hr Vancomycin/Sodium Chloride (Vancomycin 1 Gm/Ns 200 Ml) 1 gm in 200 mls @ 133 mls/hr IVPB Q12H [facility]; Protocol Stop: 11/16/18 22:01 Insulin Human Regular (Novolin R) 0 unit SC ACHS [facility]; Protocol Last Admin: 11/11/18 16:36 Dose: 4 units Multivitamins (Hexavitamin) 1 tab PO DAILY [facility] Last Admin: 11/11/18 09:26 Dose: 1 tab Nicotine (Nicoderm Cq) 1 patch TD DAILY [facility] Last Admin: 11/11/18 09:25 Dose: 1 patch Pantoprazole Sodium (Protonix Susp) 40 mg PO 0600 [facility] Last Admin: 11/11/18 06:17 Dose: 40 mg Sodium Chloride (Americus Baby Saline 30 Ml) 1 ml RODNEY BID [facility] Last Admin: 11/11/18 17:38 Dose: 1 spr Thiamine HCl (Vitamin B1 Tab) 100 mg PO DAILY [facility] Last Admin: 11/11/18 09:26 Dose: 100 mg - Labs Labs: 11/11/18 05:44 11/11/18 05:41 PT 13.6 SECONDS (9.7-12.2) H D 11/09/18 05:45 INR 1.2 D 11/09/18 05:45 APTT 29 SECONDS (21-34) 11/11/18 05:44
[2018-11-11] MEDS: Vancomycin 1 gm/NS 200 ml 1 GM/200 ML BAG IVPB SCH (22:18)
[2018-11-12] MEDS: Piperacill/Tazo 3.375gm in Dex 3.375 GM/50 ML BAG IVPB SCH ×4 (01:47→20:13)
[2018-11-12] MEDS: Albuterol-Ipratrop 3 mg / 0.5 (3 ml) UD INH SCH ×4 (02:45→19:26)
[2018-11-12 06:27] LABS: EOS # 0.2 K/uL (0.0-0.7); EOS % 2.7 % (0.0-4.0); HEMOGLOBIN 8.4 g/dL (12.0-18.0); LYMPH # 0.8 K/uL (1.0-4.3); LYMPH % 9.2 % (20.0-40.0); MEAN CELL VOLUME 81.5 fL (80.0-94.0); MEAN CORPUSCULAR HEMOGLOBIN 26.7 pg (27.0-31.0); MEAN CORPUSCULAR HGB CONC 32.8 g/dL (33.0-37.0); MEAN PLATELET VOLUME 8.5 fL (7.2-11.7); MONO # 0.7 K/uL (0.0-0.8); MONO % 7.8 % (0.0-10.0); NEUT # 7.3 K/uL (1.8-7.0); NEUT % 80.3 % (50.0-75.0); PLATELET COUNT 152 K/uL (130-400); RBC 3.15 Mil/uL (4.40-5.90); WHITE BLOOD COUNT 9.1 K/uL (4.8-10.8)
[2018-11-12 06:39] LABS: ALB/GLOB RATIO 0.6 (1.0-2.1); ALBUMIN 1.9 g/dL (3.5-5.0); ALT/SGPT 21 U/L (21-72); AST/SGOT 16 U/L (17-59); BLOOD UREA NITROGEN 6 mg/dL (9-20); CALCIUM 9.4 mg/dl (8.6-10.4); GFR NON-AFRICAN AMERICAN > 60
[2018-11-12 06:40] LABS: INR 1.4; PROTHROMBIN TIME 15.2 SECONDS (9.7-12.2)
--- NOTE | 2018-11-12 07:22 | CP.CCUPN ---
CCU Subjective - Physician Review Subjective (Free Text): ICU Progress Note for Dr. Dennis Pt seen and examined at bedside this am, denies any acute complaints. No acute events reported by staff overnight. HR and BP improved. NPO today for EGD; VATS cancelled, repeat CT chest ordered as per Surgery. 12-point ROS obtained, otherwise neg as per pt. CCU Objective - Vital Signs / Intake & Output Vital Signs (Last 4 hours): Vital Signs Temp Pulse Resp BP Pulse Ox 11/12/18 05:01 76 26 H 115/73 95 11/12/18 04:01 77 25 H 113/71 97 11/12/18 04:00 98.2 F Intake and Output (Last 8hrs): Intake & Output 11/11/18 11/12/18 11/12/18 22:59 06:59 14:59 Intake Total 520 50 Output Total 590 450 Balance -70 -400 Intake: Intake, IV Amount 250 50 Left Forearm 250 50 Oral 270 0 Output: Chest Tube Drainage 240 Left 240 Urine 350 450 Urine, Voided 350 450 Other: # Voids Urine, Voided 1 - Physical Exam Head: Positive for: Atraumatic, Normocephalic Pupils: Positive for: PERRL Extroacular Muscles: Positive for: EOMI Mouth: Positive for: Moist Mucous Membranes Respiratory/Chest: Positive for: Clear to Auscultation, Good Air Exchange. Negative for: Respiratory Distress, Accessory Muscle Use, Wheezes, Rales, Rhonchi Cardiovascular: Positive for: Regular Rate and Rhythm, Normal S1, S2. Negative for: Murmurs, Rub, Gallop Abdomen: Positive for: Normal Bowel Sounds. Negative for: Tenderness, Distention, Mass/Organomegaly Lower Extremity: Positive for: Normal Inspection, NORMAL PULSES, Neurovascularly Intact, Capillary Refill < 2 s. Negative for: Edema Neurological: Positive for: GCS=15, CN II-XII Intact, Speech Normal Skin: Positive for: Warm, Dry Psychiatric: Positive for: Alert, Oriented x 3 - Medications Active Medications: Active Medications Generic Name Dose Route Start Last Admin Trade Name Freq PRN Reason Stop Dose Admin Acetaminophen 650 mg 11/08/18 18:40 11/10/18 00:40 Tylenol 325mg Tab PO 650 mg Q6 PRN Administration Fever >100.4 F Albuterol/Ipratropium 3 ml 11/10/18 20:00 11/12/18 02:45 Duoneb 3 Mg/0.5 Mg (3 Ml) Ud INH Not Given RQ6 EDER Dextrose 0 ml 11/08/18 14:57 Dextrose 50% Inj IV STAT PRN Hypoglycemia Protocol Protocol Dextrose 0 gm 11/08/18 14:57 Glutose 15 PO ONCE PRN Hypoglycemia Protocol Protocol Enoxaparin Sodium 40 mg 11/10/18 10:45 11/11/18 09:26 Lovenox SC 40 mg DAILY EDER Administration Folic Acid 1 mg 11/11/18 10:00 11/11/18 09:26 Folic Acid PO 1 mg DAILY EDER Administration Glucagon 0 mg 11/08/18 14:57 Glucagen Diagnostic Kit IM STAT PRN Hypoglycemia Protocol Protocol Piperacillin Sod/Tazobactam Sod 3.375 gm in 50 mls @ 100 mls/hr 11/08/18 20:30 11/12/18 01:47 Zosyn 3.375 Gm Iv Premix IVPB 100 mls/hr Q6H EDER Administration Protocol Vancomycin/Sodium Chloride 1 gm in 200 mls @ 133 mls/hr 11/11/18 22:00 11/11/18 22:18 Vancomycin 1 Gm/Ns 200 Ml IVPB 11/16/18 22:01 133 mls/hr Q12H EDER Administration Protocol Insulin Human Regular 0 unit 11/10/18 17:07 11/11/18 22:17 Novolin R SC Not Given ACHS EDER Protocol Multivitamins 1 tab 11/09/18 10:00 11/11/18 09:26 Hexavitamin PO 1 tab DAILY EDER Administration Nicotine 1 patch 11/09/18 10:00 11/11/18 09:25 Nicoderm Cq TD 1 patch DAILY EDER Administration Pantoprazole Sodium 40 mg 11/11/18 06:00 11/11/18 06:17 Protonix Susp PO 40 mg 0600 EDER Administration Sodium Chloride 1 ml 11/10/18 18:00 11/11/18 17:38 [place] Baby Saline 30 Ml RODNEY 1 spr BID EDER Administration Thiamine HCl 100 mg 11/09/18 10:00 11/11/18 09:26 Vitamin B1 Tab PO 100 mg DAILY EDER Administration - Patient Studies Lab Studies: Microbiology Studies 11/11/18 05:49 Blood Culture - Preliminary Blood NO GROWTH AFTER 24 HOURS 11/11/18 05:48 Blood Culture - Preliminary Blood NO GROWTH AFTER 24 HOURS 11/08/18 14:12 Blood Culture - Preliminary Blood NO GROWTH AFTER 3 DAYS 11/09/18 10:58 Anaerobic Culture - Final Pleural Fluid NO ANAEROBES ISOLATED. 11/09/18 10:58 Gram Stain - Preliminary Pleural Fluid Body Fluid Culture - Preliminary Gram Positive Cocci 11/08/18 14:13 Blood Culture - Final Blood Klebsiella Pneumoniae Ssp Pneu Gram Stain - Final Lab Studies 11/12/18 11/12/18 11/12/18 Range/Units 06:17 06:13 06:13 WBC 9.1 (4.8-10.8) K/uL RBC 3.15 L (4.40-5.90) Mil/uL Hgb 8.4 L (12.0-18.0) g/dL Hct 25.7 L (35.0-51.0) % MCV 81.5 (80.0-94.0) fL MCH 26.7 L (27.0-31.0) pg MCHC 32.8 L (33.0-37.0) g/dL RDW 18.0 H (11.5-14.5) % Plt Count 152 (130-400) K/uL MPV 8.5 (7.2-11.7) fL Neut % (Auto) 80.3 H (50.0-75.0) % Lymph % (Auto) 9.2 L (20.0-40.0) % Rogers % (Auto) 7.8 (0.0-10.0) % Eos % (Auto) 2.7 (0.0-4.0) % Baso % (Auto) 0.0 (0.0-2.0) % Neut # (Auto) 7.3 H (1.8-7.0) K/uL Lymph # (Auto) 0.8 L (1.0-4.3) K/uL Rogers # (Auto) 0.7 (0.0-0.8) K/uL Eos # (Auto) 0.2 (0.0-0.7) K/uL Baso # (Auto) 0.0 (0.0-0.2) K/uL Neutrophils % (Manual) (50-75) % Band Neutrophils % (0-2) % Lymphocytes % (Manual) (20-40) % Monocytes % (Manual) (0-10) % Eosinophils % (Manual) (0-4) % Platelet Estimate (NORMAL) Large Platelets Poikilocytosis (manual Anisocytosis (manual) Ovalocytes PT 15.2 H (9.7-12.2) SECONDS INR 1.4 APTT 29 (21-34) SECONDS Sodium (132-148) mmol/L Potassium (3.6-5.2) mmol/L Chloride (98-107) mmol/L Carbon Dioxide (22-30) mmol/L Anion Gap (10-20) BUN (9-20) mg/dL Creatinine (0.8-1.5) mg/dL Est GFR ( Amer) Est GFR (Non-Af Amer) POC Glucose (mg/dL) (65-110) mg/dL Random Glucose (75-110) mg/dL Calcium (8.6-10.4) mg/dl Phosphorus (2.5-4.5) mg/dL Magnesium (1.6-2.3) mg/dL Total Bilirubin (0.2-1.3) mg/dL AST (17-59) U/L ALT (21-72) U/L Alkaline Phosphatase (38-126) U/L Total Protein (6.3-8.3) g/dL Albumin (3.5-5.0) g/dL Globulin (2.2-3.9) gm/dL Albumin/Globulin Ratio (1.0-2.1) Procalcitonin (0.19-0.49) NG/ML Blood Type AB POSITIVE Antibody Screen Negative 11/12/18 11/11/18 11/11/18 Range/Units 06:12 16:05 05:44 WBC (4.8-10.8) K/uL RBC (4.40-5.90) Mil/uL Hgb (12.0-18.0) g/dL Hct (35.0-51.0) % MCV (80.0-94.0) fL MCH (27.0-31.0) pg MCHC (33.0-37.0) g/dL RDW (11.5-14.5) % Plt Count (130-400) K/uL MPV (7.2-11.7) fL Neut % (Auto) (50.0-75.0) % Lymph % (Auto) (20.0-40.0) % Rogers % (Auto) (0.0-10.0) % Eos % (Auto) (0.0-4.0) % Baso % (Auto) (0.0-2.0) % Neut # (Auto) (1.8-7.0) K/uL Lymph # (Auto) (1.0-4.3) K/uL Rogers # (Auto) (0.0-0.8) K/uL Eos # (Auto) (0.0-0.7) K/uL Baso # (Auto) (0.0-0.2) K/uL Neutrophils % (Manual) 60 (50-75) % Band Neutrophils % 25 H* (0-2) % Lymphocytes % (Manual) 10 L (20-40) % Monocytes % (Manual) 3 (0-10) % Eosinophils % (Manual) 2 (0-4) % Platelet Estimate Normal (NORMAL) Large Platelets Present Poikilocytosis (manual Slight Anisocytosis (manual) Slight Ovalocytes Slight PT (9.7-12.2) SECONDS INR APTT (21-34) SECONDS Sodium 134 (132-148) mmol/L Potassium 3.7 (3.6-5.2) mmol/L Chloride 99 (98-107) mmol/L Carbon Dioxide 32 H (22-30) mmol/L Anion Gap 7 L (10-20) BUN 6 L (9-20) mg/dL Creatinine 0.5 L (0.8-1.5) mg/dL Est GFR ( Amer) > 60 Est GFR (Non-Af Amer) > 60 POC Glucose (mg/dL) 250 H (65-110) mg/dL Random Glucose 230 H (75-110) mg/dL Calcium 9.4 (8.6-10.4) mg/dl Phosphorus 2.6 (2.5-4.5) mg/dL Magnesium 1.8 (1.6-2.3) mg/dL Total Bilirubin 0.6 (0.2-1.3) mg/dL AST 16 L D (17-59) U/L ALT 21 D (21-72) U/L Alkaline Phosphatase 100 (38-126) U/L Total Protein 5.2 L (6.3-8.3) g/dL Albumin 1.9 L D (3.5-5.0) g/dL Globulin 3.3 (2.2-3.9) gm/dL Albumin/Globulin Ratio 0.6 L (1.0-2.1) Procalcitonin (0.19-0.49) NG/ML Blood Type Antibody Screen 11/11/18 Range/Units 05:41 WBC (4.8-10.8) K/uL RBC (4.40-5.90) Mil/uL Hgb (12.0-18.0) g/dL Hct (35.0-51.0) % MCV (80.0-94.0) fL MCH (27.0-31.0) pg MCHC (33.0-37.0) g/dL RDW (11.5-14.5) % Plt Count (130-400) K/uL MPV (7.2-11.7) fL Neut % (Auto) (50.0-75.0) % Lymph % (Auto) (20.0-40.0) % Rogers % (Auto) (0.0-10.0) % Eos % (Auto) (0.0-4.0) % Baso % (Auto) (0.0-2.0) % Neut # (Auto) (1.8-7.0) K/uL Lymph # (Auto) (1.0-4.3) K/uL Rogers # (Auto) (0.0-0.8) K/uL Eos # (Auto) (0.0-0.7) K/uL Baso # (Auto) (0.0-0.2) K/uL Neutrophils % (Manual) (50-75) % Band Neutrophils % (0-2) % Lymphocytes % (Manual) (20-40) % Monocytes % (Manual) (0-10) % Eosinophils % (Manual) (0-4) % Platelet Estimate (NORMAL) Large Platelets Poikilocytosis (manual Anisocytosis (manual) Ovalocytes PT (9.7-12.2) SECONDS INR APTT (21-34) SECONDS Sodium (132-148) mmol/L Potassium (3.6-5.2) mmol/L Chloride (98-107) mmol/L Carbon Dioxide (22-30) mmol/L Anion Gap (10-20) BUN (9-20) mg/dL Creatinine (0.8-1.5) mg/dL Est GFR ( Amer) Est GFR (Non-Af Amer) POC Glucose (mg/dL) (65-110) mg/dL Random Glucose (75-110) mg/dL Calcium (8.6-10.4) mg/dl Phosphorus (2.5-4.5) mg/dL Magnesium (1.6-2.3) mg/dL Total Bilirubin (0.2-1.3) mg/dL AST (17-59) U/L ALT (21-72) U/L Alkaline Phosphatase (38-126) U/L Total Protein (6.3-8.3) g/dL Albumin (3.5-5.0) g/dL Globulin (2.2-3.9) gm/dL Albumin/Globulin Ratio (1.0-2.1) Procalcitonin 0.83 H (0.19-0.49) NG/ML Blood Type Antibody Screen Laboratory Results - last 24 hr 11/11/18 11/11/18 11/11/18 05:41 05:44 16:05 WBC RBC Hgb Hct MCV MCH MCHC RDW Plt Count MPV Neut % (Auto) Lymph % (Auto) Rogers % (Auto) Eos % (Auto) Baso % (Auto) Neut # (Auto) Lymph # (Auto) Rogers # (Auto) Eos # (Auto) Baso # (Auto) Neutrophils % (Manual) 60 Band Neutrophils % 25 H* Lymphocytes % (Manual) 10 L Monocytes % (Manual) 3 Eosinophils % (Manual) 2 Platelet Estimate Normal Large Platelets Present Poikilocytosis (manual Slight Anisocytosis (manual) Slight Ovalocytes Slight PT INR APTT Sodium Potassium Chloride Carbon Dioxide Anion Gap BUN Creatinine Est GFR ( Amer) Est GFR (Non-Af Amer) POC Glucose (mg/dL) 250 H Random Glucose Calcium Phosphorus Magnesium Total Bilirubin AST ALT Alkaline Phosphatase Total Protein Albumin Globulin Albumin/Globulin Ratio Procalcitonin 0.83 H Blood Type Antibody Screen 11/12/18 11/12/18 11/12/18 06:12 06:13 06:13 WBC 9.1 RBC 3.15 L Hgb 8.4 L Hct 25.7 L MCV 81.5 MCH 26.7 L MCHC 32.8 L RDW 18.0 H Plt Count 152 MPV 8.5 Neut % (Auto) 80.3 H Lymph % (Auto) 9.2 L Rogers % (Auto) 7.8 Eos % (Auto) 2.7 Baso % (Auto) 0.0 Neut # (Auto) 7.3 H Lymph # (Auto) 0.8 L Rogers # (Auto) 0.7 Eos # (Auto) 0.2 Baso # (Auto) 0.0 Neutrophils % (Manual) Band Neutrophils % Lymphocytes % (Manual) Monocytes % (Manual) Eosinophils % (Manual) Platelet Estimate Large Platelets Poikilocytosis (manual Anisocytosis (manual) Ovalocytes PT 15.2 H INR 1.4 APTT 29 Sodium 134 Potassium 3.7 Chloride 99 Carbon Dioxide 32 H Anion Gap 7 L BUN 6 L Creatinine 0.5 L Est GFR ( Amer) > 60 Est GFR (Non-Af Amer) > 60 POC Glucose (mg/dL) Random Glucose 230 H Calcium 9.4 Phosphorus 2.6 Magnesium 1.8 Total Bilirubin 0.6 AST 16 L D ALT 21 D Alkaline Phosphatase 100 Total Protein 5.2 L Albumin 1.9 L D Globulin 3.3 Albumin/Globulin Ratio 0.6 L Procalcitonin Blood Type Antibody Screen 11/12/18 06:17 WBC RBC Hgb Hct MCV MCH MCHC RDW Plt Count MPV Neut % (Auto) Lymph % (Auto) Rogers % (Auto) Eos % (Auto) Baso % (Auto) Neut # (Auto) Lymph # (Auto) Rogers # (Auto) Eos # (Auto) Baso # (Auto) Neutrophils % (Manual) Band Neutrophils % Lymphocytes % (Manual) Monocytes % (Manual) Eosinophils % (Manual) Platelet Estimate Large Platelets Poikilocytosis (manual Anisocytosis (manual) Ovalocytes PT INR APTT Sodium Potassium Chloride Carbon Dioxide Anion Gap BUN Creatinine Est GFR ( Amer) Est GFR (Non-Af Amer) POC Glucose (mg/dL) Random Glucose Calcium Phosphorus Magnesium Total Bilirubin AST ALT Alkaline Phosphatase Total Protein Albumin Globulin Albumin/Globulin Ratio Procalcitonin Blood Type AB POSITIVE Antibody Screen Negative Radiology Impressions: Radiology Impressions Chest X-Ray 11/09/18 11:00 IMPRESSION: Persistent hazy opacities in the left lung associated with left pleural effusion. Chest X-Ray 11/11/18 08:39 IMPRESSION: Interval improvement in the previously seen hazy opacity at the left lung since the prior study. Otherwise no significant interval changes. Fingerstick Blood Sugar Results: 244 Review of Systems - Constitutional Constitutional: absent: Fever, Chills - EENT Eyes: absent: Change in Vision - Cardiovascular Cardiovascular: absent: Chest Pain, Dyspnea on Exertion, Edema, Palpitations, Syncope - Respiratory Respiratory: absent: Cough, Dyspnea, Wheezing - Gastrointestinal Gastrointestinal: absent: Abdominal Pain, Constipation, Diarrhea, Nausea, Vomiting Critical Care Progress Note - Nutrition Nutrition: Nutrition Category Date Time Status NPO Diet [DIET] Diets 11/12/18 Breakfast Active Assessment/Plan - Assessment and Plan (Free Text) Assessment: 58 y o male with PMHx DM2, CHF (last EF 55%) who presented to the ED s/p fall at home. Found to have acute Hgb drop from 10 to 5 as compared to prior admission in Aug 2018, concern to r/o GI bleed, no active bleeding appreciated on exam. Hgb stable s/p transfusion of 3 PRBC and 1 FFP. Also presented with sepsis: hyp othermic, hypotension, leukocytosis and elevated lactate on admission. Also found to have hyperglycemia on admission. GI (Dr. Aaron) and Cardiology (Dr. Dodge) consulted. S/p L-sided thoracentesis for eval of L-sided pleural effusion found on CT chest with IR (Dr. Wilkerson), found to have empyema, pleural fluid growing Strep. angiosus. Urine cx growing Enterococcus, blood cx growing Klebsiella. Also found to have suspicious mass at GE junction, r/o malignancy. NPO for EGD today with GI. VATS procedure cancelled by CT surgery today, repeat CT chest ordered. Plan: Neuro: -AAOx3 -CT head on admission demonstrates no acute findings or active bleed -Cont to monitor -Neuro checks q4h Cardio: -Hypotensive on admission, likely 2/2 sepsis -IVF d/c'd -Hx CHF -Not on any current medications outpatient -EKG on admission demonstrates NSR at 99 bpm -Dr. Dodge consulted, recs appreciated Pulm: -Saturating well on room air -L pleural effusion -Pt presented with dyspnea on exertion -CXR on admission: Layering L pleural effusion and/or consolidation -Repeat CXR this am: no significant interval change -CT chest/abd/pelvis: prior R pleural effusion cleared. Prior L pleural effusion has enlarged and interval loculated large L pleural effision now present, at least 18 cm cephalo caudal by 14 and 7 cm in axial dimensions. Smaller 1.5 cm hypodense nodular opacity borders loculated L pleural effusion, could represent smaller pleural fluid collection possibly loculated perifissural. -Repeat CT chest pending today -R/o malignancy as etiology -IR (Dr. Wilkerson) consulted for thoracentesis, recs appreciated S/p placement of 8 [place] L chest tube on 11/09 Fluid and cytology studies sent, f/u results Pleural fluid growing Strep angiosus -Will cont to monitor -CT surgery (Dr. Torres) consulted for L pleural effusion and suspicious GE junction mass, recs appreciated VATS procedure cancelled today, ordered repeat CT chest GI: -NPO today for EGD -Anemia/acute drop in Hgb -No active bleeding appreciated on exam -Hgb 5/16.8 on admission, acute drop from Hgb of 10 on prior admission to [facility] in Aug 2018; repeat CBC stabilized, cont to trend -S/p 3 units PRBCs transfused, 1 FFP on day of admission -CT chest/abd/pelvis: appearance of GE junction indeterminate, r/o hiatal hernia vs. possible concomitant underlying mass -GI consulted (Dr. Aaron), recs appreciated -Iron deficiency anemia, retic ct elevated Endo: -Hyperglycemia/hx DM2 -Presented with FS 450 on ED presentation, trending down, does not need insulin drip at this time -Normal AG, bicarb 16 -S/p D50, insulin -Hold home med Metformin on admission due to elevated lactate -ISS -Fingersticks q6h -Hypoglycemic protocol as ordered ID: -Sepsis, likely 2/2 to empyema -R/o source of infection -Hypothermic on presentation, c/w Odette hugger -Hypotensive, improved with IVFs, cont to monitor -Leukocytosis -Elevated lactate -Blood cx growing Klebsiella, urine cx growing Enterococcus -Repeat blood cxs from 11/11 NGTD -Sacral ulcer stage 1 c/d/i, less likely source of infection at this time -Vanco/zosyn -Tylenol prn for fevers -IVF d/c'd Renal: -BUN/Cr wnl on admission -Trend I's/O's -Hypokalemia resolved -K 2.6 on admission -May be 2/2 to hyperglycemia -Repleted with KCl -Cont to trend Heme: -Mgmt for anemia/acute Hgb drop as noted above -Cont to trend H/H s/p transfusion -Am coags ordered -INR on admission 1.7 PPX: -Protonix daily, SCD -Pharmacologic DVT ppx held for procedure today Pt seen, examined with, and plan discussed with Dr. Dennis, attending physician. Stevenson Garcia, DO PGY-1, Engineering Inspection Assistant Pager #[phone]
--- NOTE | 2018-11-12 07:49 | CP.PCM.PN ---
Subjective - Date & Time of Evaluation Date of Evaluation: 11/12/18 Time of Evaluation: 07:46 - Subjective Subjective: GI Fellow PGY4, progress note. No complaints today. No acute overnight events. He has not had a BM x 1 week. Denies abdominal pain, distension. Very poor appetite. Patient will have VATS procedure today. Objective - Vital Signs/Intake and Output Vital Signs (last 24 hours): Temp Pulse Resp BP Pulse Ox 98.2 F 75 26 H 114/71 97 11/12/18 04:00 11/12/18 07:01 11/12/18 07:01 11/12/18 07:01 11/12/18 07:01 Intake and Output: 11/12/18 11/12/18 06:59 18:59 Intake Total 450 0 Output Total 1270 Balance -820 0 - Medications Medications: Current Medications Acetaminophen (Tylenol 325mg Tab) 650 mg PO Q6 PRN PRN Reason: Fever >100.4 F Last Admin: 11/10/18 00:40 Dose: 650 mg Albuterol/Ipratropium (Duoneb 3 Mg/0.5 Mg (3 Ml) Ud) 3 ml INH RQ6 EDER Last Admin: 11/12/18 02:45 Dose: Not Given Dextrose (Dextrose 50% Inj) 0 ml IV STAT PRN; Protocol PRN Reason: Hypoglycemia Protocol Dextrose (Glutose 15) 0 gm PO ONCE PRN; Protocol PRN Reason: Hypoglycemia Protocol Enoxaparin Sodium (Lovenox) 40 mg SC DAILY EDER Last Admin: 11/11/18 09:26 Dose: 40 mg Folic Acid (Folic Acid) 1 mg PO DAILY EDER Last Admin: 11/11/18 09:26 Dose: 1 mg Glucagon (Glucagen Diagnostic Kit) 0 mg IM STAT PRN; Protocol PRN Reason: Hypoglycemia Protocol Piperacillin Sod/Tazobactam Sod (Zosyn 3.375 Gm Iv Premix) 3.375 gm in 50 mls @ 100 mls/hr IVPB Q6H EDER; Protocol Last Admin: 11/12/18 01:47 Dose: 100 mls/hr Vancomycin/Sodium Chloride (Vancomycin 1 Gm/Ns 200 Ml) 1 gm in 200 mls @ 133 mls/hr IVPB Q12H EDER; Protocol Stop: 11/16/18 22:01 Last Admin: 11/11/18 22:18 Dose: 133 mls/hr Insulin Human Regular (Novolin R) 0 unit SC ACHS ON LICENSE OF [facility]; Protocol Last Admin: 11/11/18 22:17 Dose: Not Given Multivitamins (Hexavitamin) 1 tab PO DAILY ON LICENSE OF [facility] Last Admin: 11/11/18 09:26 Dose: 1 tab Nicotine (Nicoderm Cq) 1 patch TD DAILY ON LICENSE OF [facility] Last Admin: 11/11/18 09:25 Dose: 1 patch Pantoprazole Sodium (Protonix Susp) 40 mg PO 0600 ON LICENSE OF [facility] Last Admin: 11/11/18 06:17 Dose: 40 mg Sodium Chloride ([place] Baby Saline 30 Ml) 1 ml RODNEY BID ON LICENSE OF [facility] Last Admin: 11/11/18 17:38 Dose: 1 spr Thiamine HCl (Vitamin B1 Tab) 100 mg PO DAILY ON LICENSE OF [facility] Last Admin: 11/11/18 09:26 Dose: 100 mg - Labs Labs: 11/12/18 06:13 11/12/18 06:12 PT 15.2 SECONDS (9.7-12.2) H 11/12/18 06:13 INR 1.4 11/12/18 06:13 APTT 29 SECONDS (21-34) 11/12/18 06:13 - Constitutional Appears: Non-toxic, No Acute Distress, Cachectic, Chronically Ill - Eye Exam Eye Exam: EOMI, Normal appearance - ENT Exam ENT Exam: Mucous Membranes Moist, Normal Exam - Respiratory Exam Respiratory Exam: Clear to Ausculation Bilateral, NORMAL BREATHING PATTERN - Cardiovascular Exam Cardiovascular Exam: REGULAR RHYTHM, +S1, +S2 - GI/Abdominal Exam GI & Abdominal Exam: Soft, Normal Bowel Sounds. absent: Distended, Tenderness - Extremities Exam Extremities Exam: Pedal Edema. absent: Tenderness - Neurological Exam Neurological Exam: Alert, Awake, Oriented x3 - Psychiatric Exam Psychiatric exam: Normal Affect, Normal Mood - Skin Skin Exam: Pallor, Warm Assessment and Plan - Assessment and Plan (Free Text) Assessment: 58 year old male with PMH of Diabetes presenting with weakness and fall. Recent discharge 08/25/18 due to sepsis with gram positive bacteremia. GI consultation for symptomatic acute on chronic anemia in setting of weakness, fall, and unintentional weight loss. No prior EGD or colonoscopy. #Abnormal CT - GEJ mass #Empyema, left #Suspected alcoholic cirrhosis #Severe anemia s/p transfusion #Severe malnutrition Plan: -(11/09) left thoracentesis-purulent, empyema. 800 cc removed; await final analysis, GPCs on stain -Cardiology clearance obtained for EGD -H/H with appropriate response to transfusion, continue to monitor -No signs of overt GI bleed -Continue PPI IV BID -Follow up VATS today -Miralax and good fluid intake -Will follow clinical course -Possible EGD +/- colonoscopy Monday. Pt seen and examined with Dr. Cunningham; please see attestation for further recs/changes.
[2018-11-12] MEDS: Pantoprazole 40 mg Susp UD PO SCH (07:59)
[2018-11-12 08:51] LABS: ANISOCYTOSIS SLIGHT; BANDS 25 % (0-2); EOSINOPHIL 1 % (0-4); LYMPHOCYTE 6 % (20-40); MONOCYTE 5 % (0-10); NEUTROPHIL 63 % (50-75); PLATELET ESTIMATE NORMAL (NORMAL); TOTAL CELLS COUNTED 100
[2018-11-12 08:52] LABS: HYPOCHROMIC SLIGHT; OVALOCYTES SLIGHT; POLYCHROMIC SLIGHT; TARGET CELLS SLIGHT
[2018-11-12] MEDS: (Novolin R) Insulin Human Regular 100 units/ml vial SC SCH ×4 (09:08→21:20)
--- NOTE | 2018-11-12 09:13 | CP.PCM.PN ---
Subjective - Date & Time of Evaluation Date of Evaluation: 11/12/18 Time of Evaluation: 09:09 - Subjective Subjective: Thoracic Surgery Progress note- Dr. Chery Patient seen and examined at bedside. s/p Thoracentesis and pigtail placement on 11/09 600cc seropurulent fluid suction, no air leak detected. Shortness of breath improved, saturating 97% on room air. Denies fevers, chills chest pain, shortness of breath. Afebrile, leukocytosis resolved. Objective - Vital Signs/Intake and Output Vital Signs (last 24 hours): Temp Pulse Resp BP Pulse Ox 98.4 F 75 26 H 114/71 97 11/12/18 07:46 11/12/18 07:01 11/12/18 07:01 11/12/18 07:01 11/12/18 07:01 Intake and Output: 11/12/18 11/12/18 06:59 18:59 Intake Total 450 0 Output Total 1270 Balance -820 0 - Medications Medications: Current Medications Acetaminophen (Tylenol 325mg Tab) 650 mg PO Q6 PRN PRN Reason: Fever >100.4 F Last Admin: 11/10/18 00:40 Dose: 650 mg Albuterol/Ipratropium (Duoneb 3 Mg/0.5 Mg (3 Ml) Ud) 3 ml INH RQ6 [facility] Last Admin: 11/12/18 07:30 Dose: 3 ml Dextrose (Dextrose 50% Inj) 0 ml IV STAT PRN; Protocol PRN Reason: Hypoglycemia Protocol Dextrose (Glutose 15) 0 gm PO ONCE PRN; Protocol PRN Reason: Hypoglycemia Protocol Enoxaparin Sodium (Lovenox) 40 mg SC DAILY [facility] Last Admin: 11/11/18 09:26 Dose: 40 mg Folic Acid (Folic Acid) 1 mg PO DAILY [facility] Last Admin: 11/11/18 09:26 Dose: 1 mg Glucagon (Glucagen Diagnostic Kit) 0 mg IM STAT PRN; Protocol PRN Reason: Hypoglycemia Protocol Piperacillin Sod/Tazobactam Sod (Zosyn 3.375 Gm Iv Premix) 3.375 gm in 50 mls @ 100 mls/hr IVPB Q6H [facility]; Protocol Last Admin: 11/12/18 07:48 Dose: 100 mls/hr Vancomycin/Sodium Chloride (Vancomycin 1 Gm/Ns 200 Ml) 1 gm in 200 mls @ 133 mls/hr IVPB Q12H [facility]; Protocol Stop: 11/16/18 22:01 Last Admin: 11/11/18 22:18 Dose: 133 mls/hr Insulin Human Regular (Novolin R) 0 unit SC ACHS [facility]; Protocol Last Admin: 11/12/18 09:08 Dose: Not Given Multivitamins (Hexavitamin) 1 tab PO DAILY [facility] Last Admin: 11/11/18 09:26 Dose: 1 tab Nicotine (Nicoderm Cq) 1 patch TD DAILY [facility] Last Admin: 11/11/18 09:25 Dose: 1 patch Pantoprazole Sodium (Protonix Inj) 40 mg IVP DAILY [facility] Last Admin: 11/12/18 09:08 Dose: 40 mg Sodium Chloride ([place] Baby Saline 30 Ml) 1 ml RODNEY BID [facility] Last Admin: 11/11/18 17:38 Dose: 1 spr Thiamine HCl (Vitamin B1 Tab) 100 mg PO DAILY [facility] Last Admin: 11/11/18 09:26 Dose: 100 mg - Labs Labs: 11/12/18 06:13 11/12/18 06:12 PT 15.2 SECONDS (9.7-12.2) H 11/12/18 06:13 INR 1.4 11/12/18 06:13 APTT 29 SECONDS (21-34) 11/12/18 06:13 - Constitutional Appears: Non-toxic, No Acute Distress - Head Exam Head Exam: ATRAUMATIC - Eye Exam Eye Exam: EOMI. absent: Scleral icterus - ENT Exam ENT Exam: Mucous Membranes Moist - Respiratory Exam Respiratory Exam: NORMAL BREATHING PATTERN. absent: Accessory Muscle Use, Respiratory Distress Additional comments: Left pigtail catheter inplace, suction, no airleak detected - Cardiovascular Exam Cardiovascular Exam: REGULAR RHYTHM. absent: Bradycardia, Tachycardia - GI/Abdominal Exam GI & Abdominal Exam: Soft. absent: Distended, Guarding, Rigid, Tenderness - Extremities Exam Extremities Exam: absent: Calf Tenderness - Neurological Exam Neurological Exam: Alert, Awake, Oriented x3 - Psychiatric Exam Psychiatric exam: Normal Affect - Skin Skin Exam: Intact, Warm Assessment and Plan - Assessment and Plan (Free Text) Assessment: 58 y/o M w/ Empyema s/p thoracocentesis and pigtail placement on 11/09 CXR and clinically improving Plan: - OR VATS cancelled today - repeat Chest CT - Monitor pigtail output - cont Pain management - daily CXR - c/s GI; all recs appreciated- plans for EGD - discussed with Dr. Patterson Thoracic Surgery Attending PGY2
--- NOTE | 2018-11-12 09:27 | RAD ---
Date of service: 11/12/2018 HISTORY: empyema; pigtail COMPARISON: 11/11/2018 FINDINGS: LUNGS: Persistent left pleural drain with loculated left pleural effusion/empyema, not significantly changed since the prior study. Adjacent left basilar consolidation. PLEURA: As above. CARDIOVASCULAR: No aortic atherosclerotic calcification present. Normal cardiac size. OSSEOUS STRUCTURES: No significant abnormalities. VISUALIZED UPPER ABDOMEN: Normal. OTHER FINDINGS: None. IMPRESSION: No significant interval change.
[2018-11-12] MEDS ORDERED: Lactated Ringer's 500 ML IV ONE (09:50)
[2018-11-12] MEDS ORDERED: Digoxin 500 mcg/2ml (0.5 mg/2ml) Inj ONE (09:56)
[2018-11-12] MEDS ORDERED: Propofol 10 mg/ml Inj (20 ML) ONE (09:57)
[2018-11-12] MEDS ORDERED: Iodixanol 320 MG/ML 100 ML BOTTLE IV ONE (10:47)
--- NOTE | 2018-11-12 11:29 | CP.PCM.PN ---
Subjective - Date & Time of Evaluation Date of Evaluation: 11/12/18 Time of Evaluation: 11:10 - Subjective Subjective: Hospitalist Progress Note Patient was seen and examined at 11:10 AM 11/12/18 Patient underwent EGD earlier today and biopsy was taken of mass extending from GE into the Stomach. Spoke with patient on suspicious findings on EGD performed today and that we will be following up the pathology report. Patient repeated "I can't believe it" multiple times during our conversation. I reassured him that we would do our best to help him through this. Medicine Team will consult with Palliative Care and Heme Onc once the results of the biopsy are available. Patient's primary contact Sister Korin was notified and updated via phone (Home# [phone], ) VATS procedure was placed on hold by Surgery Team for now and they have ordered a repeat CT Chest. Pigtail Catheter Left Chest continues to output purulent material Upon FULL ROS: NO chest pain at the left pigtail catheter insertion site NO SOB/Cough/Wheezing NO abdominal pain NO n/v/d Has NOT had a bowel movement for the past 1 1/2 weeks but stated that he was not eating much NO other complaints upon FULL ROS Exam: General: Resting comfortably. Appears to be sad concerning news about the suspicious findings on the EGD HEENT: NCA, EOMI, PERRLA, NO pharyngeal erythema/exudate, NO lymphadenopathy Cardio: NS1 and NS2, NO M/R/G Resp: Decreased breath sounds on the left lower lung dean GI: BSx4, Soft, ND, NO HSM, NO guarding/rebound tenderness Ext: Pulses are strong and equal, Capillary Refill is 2 seconds, 1+ Pitting Edema bilateral lower legs from ankles to midtibia Neuro: CN II through XII are grossly intact Assessment and Plan (1) Sepsis Urinary tract infection Bacteremia Empyema Assessment & Plan: * Code sepsis 11/08/18 * Infectious Disease (Dr. Bojorquez) on board-->help appreciated * Criteria: leukocytosis, hypotension, bandemia, hypothermia, source of infections: empyema, uti, bacteremia * Lactic acid: 3.5-->1.7 * elevated procalcitonin: 1.49-->0.83 on 11/11/18 * Blood culture (11/08/18): Klebsiella pneumoniae * Sensitive to Zosyn with LUPE of less than 4 * Blood culture (11/11/18): Negative to date * Urine culture (11/08/18): Enterococcus Faecalis * Restarted Vancomycin 1 gram IV Q12H 11/11/18 in light of culture results * MRSA (11/08/18): not detected * Pleural fluid (11/09/18): no acid fast bacilli * Pleural fluid (11/09/18): Streptococcus anginosus which is sensitive to Vanc omycin which the patient was restarted on 11/11/18 * Chest xray (11/08/18): layering left pleural effusion and/or consolidation * Chest xray (11/09/18): slight increase in left perihilar/basilar opacity. small left pleural effusion, grossly unchanged * Iv abx: * Zosyn 3.375 g IV Q6H (active since 11/08/18) * Vancomycin 1 gram IV Q12 (11/08/18 through 11/11/18): spoke with ID Dr. Bojorquez 11/12/18: Zosyn will cover the Klebsiella, Streptococcus and the Enterococcus * Follow up repeat Chest CT 11/12/18 Status: Acute (2) Empyema; Loculated Left Pleural effusion Assessment & Plan: * Thoracic Surgery (Dr. Bro) on board-->help appreciated * VATS procedure cancelled on 11/12/18 * Repeat CT Chest ordered 11/12/18 * Chest xray (11.08.18): layering left pleural effusion and/or consolidation * Chest xray (11/09/18): slight increase in left perihilar/basilar opacity. small left pleural effusion, grossly unchanged * S/P IR thoracentesis 11/09/18; placement of pigtail catheter * Pleural fluid (11/09/18): Streptococcus anginosus which is sensitive to V ancomycin which the patient was restarted on 11/11/18 * Pleural fluid (11/09/18): moderate PMNs, moderate gram positive cocci * Echocardiogram (08/20/18): left ventricular function is normal, left ventricular ejection fraction is within the the normal range about 55%, mild mitral valve regurgitation noted Status: Acute (3) Anemia Assessment & Plan: * Thoracic Surgery (Dr. Bro) on board-->help appreciated * GI (Dr. Aaron) on board-->help appreciated * Likely secondary to the suspicious mass found on EGD performed on 11/12/18? * On admission: hgb 10-->5 * blood transfusion consent obtained by resident 11/08/18 * given 3 units of PRBC overnight night and 1 FFP unit * rectal negative * ferritin low * iron low: will not repleat at this time considering multiple infections as documented in Assessment/Plan #1 * tibc: 148 low * transferrin low * Stable 8.6 since blood transfusion 11/08/18 * Reticulocyte count: 2.2--> reticulocyte index: 0.12-->hypoproliferation <2 * Folate low * B12: 967 (low) * Occult blood: negative * CT Chest/Abdomen/pelvis (11/08/18): ascites, anasarca, interval loculated left pleural effusion, appearance of GE junction is indeterminate here a hiatal hernia vs mass Status: Acute (4) Cirrhosis Assessment & Plan: * GI (Dr. Aaron) on board-->help appreciated * CT Chest/Abdomen/pelvis IV contrast (11/08/18): prior amount of ascites and anasarca has improved. further findings per report * Abdominal US (08/18/18): limited study. echogenic liver may be seen in hepatic parenchymal disease or fatty infiltrate. nodular hepatic contour. cholelithiasis. gallbladder wall thickening/pericholecystic edema. negative sonographic Cespedes's small abdominal ascites * Hepatitis Panel negative * Blood alcohol <10 * Patient notes he has drinking 3 shots of vodka X30 years. Status: Acute (5) Diabetes mellitus 2 Assessment & Plan: * Hgba1c: 8.1 * Patient is off metformin given elevated lactic on admission * RISS ACHS * Accuchecks QAC and HS Status: Chronic (6) GE junction Mass Assessment & Plan: * Thoracic Surgery (Dr. Bro) on board-->help appreciated * GI (Dr. Aaron) on board-->help appreciated * CT Chest/Abdomen/pelvis (11/08/18): ascites, anasarca, interval loculated left pleural effusion, appearance of GE junction is indeterminate here a hiatal hernia vs mass * Patient is S/P Upper EGD on 11/12/18 and suspicious mass noted from the lower Esophagus into Gastric Fundus. Will follow up pathology and once results known, will get Palliative Care and Heme/Onc on board Status: Acute (7) Alcohol use Assessment & Plan: * Ciwa protocol * Aspiration precautions * Seizure precautions * Folic acid 1mg PO Daily * MVI tab PO daily * Thiamine 100mg PO daily * 3 shots of vodka X 30 years history * Monitor for withdrawal; patient is not currently in withdrawal * Abdominal US (08/18/18): limited study. Echogenic liver may be seen in hepatic parenchymal disease or fatty infiltrate. Nodular hepatic contour. cholelithiasis. Gallbladder wall thickening/pericholecystic edema. Negative sonographic Cespedes's small abdominal ascites Status: Acute (8) Tobacco use Assessment & Plan: * 1 ppd X30 years * Nicotine patch daily * Advised smoking cessation Status: Acute (9) Cachexia Assessment & Plan: * Related to alcohol, smoking, malnutrition, AND likely related to suspicious GE mass? Status: Acute (10) Ulcer of sacral region, stage 1 Assessment & Plan: * Wound Care Nurse Joseph Amaya is on board: Cahrlene Price and continue to turn patient every 2 hours Status: Acute (11) Prophylactic measure Status: Acute * PT/OT eval * Protonix 40mg IV q12H * Full code * Lovenox 40mg subq daily for DVT ppx Disposition: F/U repeat Blood Culture 11/11/18 F/U pathology report EGD biopsies Get Palliative Care and Heme/Onc on board once EGD pathology is known F/U CT Chest ordered for 11/12/18 F/U Bilateral Venous Doppler LE: ordered due to the edema noted on exam and considering likely hypercoagulable state from suspicious Esoph/Gastric Mass Nestor Sebastian D.O. Objective - Vital Signs/Intake and Output Vital Signs (last 24 hours): Temp Pulse Resp BP Pulse Ox 98.4 F 81 20 107/66 100 11/12/18 09:57 11/12/18 09:57 11/12/18 09:57 11/12/18 09:57 11/12/18 09:57 Intake and Output: 11/12/18 11/12/18 06:59 18:59 Intake Total 450 50 Output Total 1270 Balance -820 50 - Medications Medications: Current Medications Acetaminophen (Tylenol 325mg Tab) 650 mg PO Q6 PRN PRN Reason: Fever >100.4 F Last Admin: 11/10/18 00:40 Dose: 650 mg Albuterol/Ipratropium (Duoneb 3 Mg/0.5 Mg (3 Ml) Ud) 3 ml INH RQ6 [facility] Last Admin: 11/12/18 07:30 Dose: 3 ml Dextrose (Dextrose 50% Inj) 0 ml IV STAT PRN; Protocol PRN Reason: Hypoglycemia Protocol Dextrose (Glutose 15) 0 gm PO ONCE PRN; Protocol PRN Reason: Hypoglycemia Protocol Enoxaparin Sodium (Lovenox) 40 mg SC DAILY [facility] Last Admin: 11/11/18 09:26 Dose: 40 mg Folic Acid (Folic Acid) 1 mg PO DAILY [facility] Last Admin: 11/11/18 09:26 Dose: 1 mg Glucagon (Glucagen Diagnostic Kit) 0 mg IM STAT PRN; Protocol PRN Reason: Hypoglycemia Protocol Piperacillin Sod/Tazobactam Sod (Zosyn 3.375 Gm Iv Premix) 3.375 gm in 50 mls @ 100 mls/hr IVPB Q6H [facility]; Protocol Last Admin: 11/12/18 07:48 Dose: 100 mls/hr Vancomycin/Sodium Chloride (Vancomycin 1 Gm/Ns 200 Ml) 1 gm in 200 mls @ 133 mls/hr IVPB Q12H [facility]; Protocol Stop: 11/16/18 22:01 Last Admin: 11/11/18 22:18 Dose: 133 mls/hr Insulin Human Regular (Novolin R) 0 unit SC ACHS [facility]; Protocol Last Admin: 11/12/18 09:08 Dose: Not Given Multivitamins (Hexavitamin) 1 tab PO DAILY [facility] Last Admin: 11/11/18 09:26 Dose: 1 tab Nicotine (Nicoderm Cq) 1 patch TD DAILY [facility] Last Admin: 11/12/18 09:12 Dose: 1 patch Pantoprazole Sodium (Protonix Inj) 40 mg IVP DAILY [facility] Last Admin: 11/12/18 09:08 Dose: 40 mg Sodium Chloride ([place] Baby Saline 30 Ml) 1 ml RODNEY BID [facility] Last Admin: 11/11/18 17:38 Dose: 1 spr Thiamine HCl (Vitamin B1 Tab) 100 mg PO DAILY [facility] Last Admin: 11/11/18 09:26 Dose: 100 mg - Labs Labs: 11/12/18 06:13 11/12/18 06:12 PT 15.2 SECONDS (9.7-12.2) H 11/12/18 06:13 INR 1.4 11/12/18 06:13 APTT 29 SECONDS (21-34) 11/12/18 06:13
[2018-11-12] MEDS: Sodium Chloride Nasal 0.65% Soln (30ml) NAS SCH ×2 (11:39→17:30)
[2018-11-12] MEDS: Vancomycin 1 gm/NS 200 ml 1 GM/200 ML BAG IVPB SCH (11:42)
--- NOTE | 2018-11-12 12:06 | CP.PCM.PN ---
Subjective - Date & Time of Evaluation Date of Evaluation: 11/12/18 Time of Evaluation: 09:00 - Subjective Subjective: seen on rounds has lower esophageal lesion Oncology eval cont IV antibiotics Objective - Vital Signs/Intake and Output Vital Signs (last 24 hours): Temp Pulse Resp BP Pulse Ox 98.4 F 76 22 111/74 100 11/12/18 09:57 11/12/18 11:23 11/12/18 11:23 11/12/18 11:23 11/12/18 11:23 Intake and Output: 11/12/18 11/12/18 06:59 18:59 Intake Total 450 50 Output Total 1270 Balance -820 50 - Medications Medications: Current Medications Acetaminophen (Tylenol 325mg Tab) 650 mg PO Q6 PRN PRN Reason: Fever >100.4 F Last Admin: 11/10/18 00:40 Dose: 650 mg Albuterol/Ipratropium (Duoneb 3 Mg/0.5 Mg (3 Ml) Ud) 3 ml INH RQ6 [facility] Last Admin: 11/12/18 07:30 Dose: 3 ml Bisacodyl (Dulcolax) 10 mg [place] ONCE ONE Stop: 11/12/18 12:16 Dextrose (Dextrose 50% Inj) 0 ml IV STAT PRN; Protocol PRN Reason: Hypoglycemia Protocol Dextrose (Glutose 15) 0 gm PO ONCE PRN; Protocol PRN Reason: Hypoglycemia Protocol Enoxaparin Sodium (Lovenox) 40 mg SC DAILY [facility] Last Admin: 11/11/18 09:26 Dose: 40 mg Folic Acid (Folic Acid) 1 mg PO DAILY [facility] Last Admin: 11/11/18 09:26 Dose: 1 mg Glucagon (Glucagen Diagnostic Kit) 0 mg IM STAT PRN; Protocol PRN Reason: Hypoglycemia Protocol Piperacillin Sod/Tazobactam Sod (Zosyn 3.375 Gm Iv Premix) 3.375 gm in 50 mls @ 100 mls/hr IVPB Q6H [facility]; Protocol Last Admin: 11/12/18 07:48 Dose: 100 mls/hr Vancomycin/Sodium Chloride (Vancomycin 1 Gm/Ns 200 Ml) 1 gm in 200 mls @ 133 mls/hr IVPB Q12H [facility]; Protocol Stop: 11/16/18 22:01 Last Admin: 11/12/18 11:42 Dose: 133 mls/hr Insulin Human Regular (Novolin R) 0 unit SC ACHS [facility]; Protocol Last Admin: 11/12/18 09:08 Dose: Not Given Multivitamins (Hexavitamin) 1 tab PO DAILY [facility] Last Admin: 11/11/18 09:26 Dose: 1 tab Nicotine (Nicoderm Cq) 1 patch TD DAILY [facility] Last Admin: 11/12/18 09:12 Dose: 1 patch Pantoprazole Sodium (Protonix Inj) 40 mg IVP DAILY [facility] Last Admin: 11/12/18 09:08 Dose: 40 mg Sodium Chloride ([place] Baby Saline 30 Ml) 1 ml RODNEY BID [facility] Last Admin: 11/12/18 11:39 Dose: Not Given Thiamine HCl (Vitamin B1 Tab) 100 mg PO DAILY [facility] Last Admin: 11/11/18 09:26 Dose: 100 mg - Labs Labs: 11/12/18 06:13 11/12/18 06:12 PT 15.2 SECONDS (9.7-12.2) H 11/12/18 06:13 INR 1.4 11/12/18 06:13 APTT 29 SECONDS (21-34) 11/12/18 06:13 - Constitutional Appears: Non-toxic, Cachectic, Chronically Ill - Head Exam Head Exam: NORMOCEPHALIC - Eye Exam Eye Exam: absent: Scleral icterus - ENT Exam ENT Exam: Mucous Membranes Dry, Normal Oropharynx - Neck Exam Neck Exam: absent: Lymphadenopathy - Respiratory Exam Respiratory Exam: Decreased Breath Sounds, Prolonged Expiratory Phase, Rhonchi Additional comments: chest tube in place left side - Cardiovascular Exam Cardiovascular Exam: REGULAR RHYTHM - GI/Abdominal Exam GI & Abdominal Exam: Distended - Rectal Exam Rectal Exam: Deferred - Exam Exam: NORMAL INSPECTION - Extremities Exam Extremities Exam: absent: Pedal Edema - Back Exam Back Exam: absent: CVA tenderness (L), CVA tenderness (R) - Neurological Exam Neurological Exam: Alert, Awake, CN II-XII Intact, Oriented x3 - Psychiatric Exam Psychiatric exam: Depressed - Skin Skin Exam: Dry Assessment and Plan (1) Esophageal mass Status: Acute (2) Abnormal CT scan, chest Status: Acute (3) Alcohol use Status: Acute (4) Anemia Status: Acute (5) Cachexia Status: Acute (6) Pleural effusion Status: Acute (7) Sepsis Status: Acute (8) Cirrhosis Status: Acute (9) Diabetes mellitus Status: Acute (10) Gram negative sepsis Status: Acute - Assessment and Plan (Free Text) Assessment: likely malignancy IV antibiotics for empyema/ bacteremia
[2018-11-12] MEDS: Multiple Vitamins Tab PO SCH (12:13)
--- NOTE | 2018-11-12 12:27 | CP.PCM.PCO ---
Physician Communication Note - Physician Communication Note Physician Communication Note: Marion on hold IV Zosyn renewed
[2018-11-12] MEDS ORDERED: Bisacodyl 5mg EC Tab PO ONE (12:30)
--- NOTE | 2018-11-12 14:21 | CT ---
Date of service: 11/12/2018 CT chest with IV contrast Indication: Staged Imaging; Pleural effusion Technique: Contiguous axial images were obtained through the chest with intravenous contrast enhancement. Sagittal and coronal reconstructions were generated and reviewed. This CT exam was performed using 1 or more of the following dose reduction techniques: Automated exposure control, adjustment of the MAA and/or kV according to patient size, and/or use of iterative reconstruction technique. IV contrast: 100 mL Visipaque 320 IV Radiation dose (DLP): 455.31 MGy-cm. Comparison: CT of the chest, abdomen, and pelvis performed 11/08/18, chest x-ray performed 11/12/18 Findings: Visualized portions of the inferior thyroid gland appear unremarkable. The mediastinal and hilar vascular structures appear within normal limits. The heart appears within normal limits of size. Dense coronary artery calcifications. Sub cm mediastinal adenopathy. No large central pulmonary embolus identified. Moderate bilateral pleural effusions and associated consolidations. Foci of air within the loculated left pleural effusion may be related to left chest tube placement. Evidence of pneumothorax at the left lung base. Moderate-sized hiatal hernia with gastric wall thickening/heterogeneity; recommend further evaluation with endoscopy if indicated. Limited visualization of the upper abdomen demonstrates cholelithiasis. Degenerative changes of the spine. Impression: Moderate left-sided hydropneumothorax with chest tube present. Moderate right-sided pleural effusion. Bilateral lower lobe dependent consolidations. Sub cm mediastinal adenopathy. Moderate-sized hiatal hernia with gastric wall thickening/heterogeneity; recommend further evaluation with endoscopy if indicated. Limited visualization of the upper abdomen demonstrates cholelithiasis.
[2018-11-12] MEDS ORDERED: Vancomycin 1 gm/NS 200 ml 1 GM/200 ML BAG IVPB SCH (18:00)
[2018-11-13] MEDS: Albuterol-Ipratrop 3 mg / 0.5 (3 ml) UD INH SCH ×3 (02:16→19:37)
[2018-11-13] MEDS: Piperacill/Tazo 3.375gm in Dex 3.375 GM/50 ML BAG IVPB SCH ×4 (02:18→20:28)
[2018-11-13 06:09] LABS: BASO % 0.1 % (0.0-2.0); EOS # 0.3 K/uL (0.0-0.7); EOS % 2.8 % (0.0-4.0); HEMOGLOBIN 8.3 g/dL (12.0-18.0); LYMPH # 0.9 K/uL (1.0-4.3); LYMPH % 9.8 % (20.0-40.0); MEAN CELL VOLUME 81.3 fL (80.0-94.0); MEAN CORPUSCULAR HEMOGLOBIN 26.6 pg (27.0-31.0); MEAN CORPUSCULAR HGB CONC 32.7 g/dL (33.0-37.0); MEAN PLATELET VOLUME 8.3 fL (7.2-11.7); MONO # 0.8 K/uL (0.0-0.8); MONO % 8.2 % (0.0-10.0); NEUT # 7.3 K/uL (1.8-7.0); NEUT % 79.1 % (50.0-75.0); PLATELET COUNT 133 K/uL (130-400); RBC 3.14 Mil/uL (4.40-5.90); WHITE BLOOD COUNT 9.3 K/uL (4.8-10.8)
[2018-11-13 06:33] LABS: ALB/GLOB RATIO 0.6 (1.0-2.1); ALBUMIN 1.9 g/dL (3.5-5.0); ALT/SGPT 19 U/L (21-72); AST/SGOT 11 U/L (17-59); BLOOD UREA NITROGEN 3 mg/dL (9-20); GFR NON-AFRICAN AMERICAN > 60
[2018-11-13 06:54] LABS: GLUCOSE PLEURAL FLUID <10 mg/dL; LDH PLEURAL FLUID 1113 U/L; TOTAL PROTEIN PLEURAL FLUID <3.0 g/dL
--- NOTE | 2018-11-13 07:28 | CP.PCM.PN ---
<Juan Chaves - Last Filed: 11/13/18 07:28> Objective - Vital Signs/Intake and Output Vital Signs (last 24 hours): Temp Pulse Resp BP Pulse Ox 98.2 F 70 20 129/70 98 11/13/18 04:00 11/13/18 04:00 11/13/18 04:00 11/13/18 04:00 11/13/18 04:00 Intake and Output: 11/13/18 11/13/18 06:59 18:59 Intake Total 300 Output Total 570 Balance -270 - Medications Medications: Current Medications Acetaminophen (Tylenol 325mg Tab) 650 mg PO Q6 PRN PRN Reason: Fever >100.4 F Last Admin: 11/10/18 00:40 Dose: 650 mg Albuterol/Ipratropium (Duoneb 3 Mg/0.5 Mg (3 Ml) Ud) 3 ml INH RQ6 [facility] Last Admin: 11/13/18 02:16 Dose: Not Given Dextrose (Dextrose 50% Inj) 0 ml IV STAT PRN; Protocol PRN Reason: Hypoglycemia Protocol Dextrose (Glutose 15) 0 gm PO ONCE PRN; Protocol PRN Reason: Hypoglycemia Protocol Enoxaparin Sodium (Lovenox) 40 mg SC DAILY [facility] Last Admin: 11/11/18 09:26 Dose: 40 mg Folic Acid (Folic Acid) 1 mg PO DAILY [facility] Last Admin: 11/12/18 12:12 Dose: 1 mg Glucagon (Glucagen Diagnostic Kit) 0 mg IM STAT PRN; Protocol PRN Reason: Hypoglycemia Protocol Piperacillin Sod/Tazobactam Sod (Zosyn 3.375 Gm Iv Premix) 3.375 gm in 50 mls @ 100 mls/hr IVPB Q6H [facility]; Protocol Last Admin: 11/13/18 02:18 Dose: 100 mls/hr Insulin Human Regular (Novolin R) 0 unit SC ACHS [facility]; Protocol Last Admin: 11/12/18 21:20 Dose: Not Given Multivitamins (Hexavitamin) 1 tab PO DAILY [facility] Last Admin: 11/12/18 12:13 Dose: 1 tab Nicotine (Nicoderm Cq) 1 patch TD DAILY [facility] Last Admin: 11/12/18 09:12 Dose: 1 patch Pantoprazole Sodium (Protonix Inj) 40 mg IVP DAILY [facility] Last Admin: 11/12/18 09:08 Dose: 40 mg Sodium Chloride ([place] Baby Saline 30 Ml) 1 ml RODNEY BID [facility] Last Admin: 11/12/18 17:30 Dose: 1 spr Thiamine HCl (Vitamin B1 Tab) 100 mg PO DAILY [facility] Last Admin: 11/12/18 12:13 Dose: 100 mg - Labs Labs: 11/13/18 06:00 11/13/18 05:55 PT 15.2 SECONDS (9.7-12.2) H 11/12/18 06:13 INR 1.4 11/12/18 06:13 APTT 29 SECONDS (21-34) 11/12/18 06:13 <Nestor Sebastian - Last Filed: 11/13/18 18:52> Subjective - Date & Time of Evaluation Date of Evaluation: 11/12/18 Time of Evaluation: 13:30 - Subjective Subjective: . Objective - Vital Signs/Intake and Output Vital Signs (last 24 hours): Temp Pulse Resp BP Pulse Ox 98.6 F 78 18 91/57 L 99 11/13/18 16:00 11/13/18 16:00 11/13/18 16:00 11/13/18 16:00 11/13/18 16:00 Intake and Output: 11/13/18 11/13/18 06:59 18:59 Intake Total 300 300 Output Total 570 Balance -270 300 - Medications Medications: Current Medications Acetaminophen (Tylenol 325mg Tab) 650 mg PO Q6 PRN PRN Reason: Fever >100.4 F Last Admin: 11/10/18 00:40 Dose: 650 mg Albuterol/Ipratropium (Duoneb 3 Mg/0.5 Mg (3 Ml) Ud) 3 ml INH RQ6 [facility] Last Admin: 11/13/18 09:12 Dose: 3 ml Dextrose (Dextrose 50% Inj) 0 ml IV STAT PRN; Protocol PRN Reason: Hypoglycemia Protocol Dextrose (Glutose 15) 0 gm PO ONCE PRN; Protocol PRN Reason: Hypoglycemia Protocol Enoxaparin Sodium (Lovenox) 40 mg SC DAILY [facility] Last Admin: 11/13/18 10:01 Dose: 40 mg Fluconazole (Diflucan) 100 mg PO DAILY [facility]; Protocol Folic Acid (Folic Acid) 1 mg PO DAILY [facility] Last Admin: 11/13/18 10:02 Dose: 1 mg Glucagon (Glucagen Diagnostic Kit) 0 mg IM STAT PRN; Protocol PRN Reason: Hypoglycemia Protocol Piperacillin Sod/Tazobactam Sod (Zosyn 3.375 Gm Iv Premix) 3.375 gm in 50 mls @ 100 mls/hr IVPB Q6H [facility]; Protocol Last Admin: 11/13/18 16:20 Dose: 100 mls/hr Insulin Human Regular (Novolin R) 0 unit SC ACHS [facility]; Protocol Last Admin: 11/13/18 16:42 Dose: 6 units Multivitamins (Hexavitamin) 1 tab PO DAILY [facility] Last Admin: 11/13/18 10:02 Dose: 1 tab Nicotine (Nicoderm Cq) 1 patch TD DAILY [facility] Last Admin: 11/13/18 10:02 Dose: 1 patch Pantoprazole Sodium (Protonix Ec Tab) 40 mg PO DAILY [facility] Last Admin: 11/13/18 10:02 Dose: 40 mg Sodium Chloride ([place] Baby Saline 30 Ml) 1 ml RODNEY BID [facility] Last Admin: 11/13/18 18:06 Dose: 1 spr Thiamine HCl (Vitamin B1 Tab) 100 mg PO DAILY [facility] Last Admin: 11/13/18 10:02 Dose: 100 mg - Labs Labs: 11/13/18 06:00 11/13/18 05:55 PT 15.2 SECONDS (9.7-12.2) H 11/12/18 06:13 INR 1.4 11/12/18 06:13 APTT 29 SECONDS (21-34) 11/12/18 06:13 Attending/Attestation - Attestation I have personally seen and examined this patient.: Yes I have fully participated in the care of the patient.: Yes I have reviewed all pertinent clinical information, including history, physical exam and plan: Yes Notes (Text): 11/13/18 18:37 Hospitalist Progress Note Patient was seen and examined at 1:30 PM 11/13/18 Patient underwent EGD on Monday11/12/18 and biopsy was taken of mass extending from GE into the Stomach. Preliminary pathology report as per my conversation with GI Dr. Aaron indicated Squamous Cell CA. Spoke with Palliative Care Nurse Rosas and Heme/Oncologist Dr. Melody Paredes and updated them on patient history and the need for their assistance. EGD biopsy also indicated Mallory: Diflucan 100 mg PO 1x/day started by GI 11/14/18 and this should be continued for 21 days through 12/05/18. At this time I do NOT believe that patient is a good surgical candidate for surg raphael considering the Assessment and Plan #1 below. Will need to follow up with further recommendations from Heme/Oncologist Dr. Melody Paredes as to best course of action: Chemo? Radiation? and then Surgery? Patient will also need a source of nutrition considering that he is currently on clear liquids, which he is tolerating (broth, Ensure Clear, jello were consumed today without any issues). Dr. Aaron recommends possible PEG Tube Placement. I spoke with patient concerning the preliminary pathology report and the need for PEG Tube. He stated that he will think about it. Patient's primary contact and decision maker should he not be able to make decisions on his own is Sister Korin (Home# [phone], ). I have asked patient to have her have me paged once she comes to visit him later today. VATS procedure was placed on hold by Surgery Team for now. CT Chest 11/12/18: moderate left sided hydropneumothorax, moderate right pleural effusion, bilateral lower lobe consolidations, mediastinal lymphadenopathy, moderate hiatal hernia with gastric wall thickening Pigtail Catheter Left Chest continues to output purulent material Upon FULL ROS: NO chest pain at the left pigtail catheter insertion site NO SOB/Cough/Wheezing NO abdominal pain NO n/v/d Has NOT had a bowel movement for the past 1 1/2 weeks but stated that he was not eating much but stated that he felt like he will go today NO other complaints upon FULL ROS Exam: General: Resting comfortably and in NO distress HEENT: NCA, EOMI, PERRLA, NO pharyngeal erythema/exudate, NO lymphadenopathy Cardio: NS1 and NS2, NO M/R/G Resp: Decreased breath sounds on the left lower lung dean GI: BSx4, Soft, ND, NO HSM, NO guarding/rebound tenderness Ext: Pulses are strong and equal, Capillary Refill is 2 seconds, 1+ Pitting Edema bilateral lower legs from ankles to midtibia Neuro: CN II through XII are grossly intact Assessment and Plan (1) Sepsis Urinary tract infection Bacteremia Empyema Assessment & Plan: * Code sepsis 11/08/18 * Infectious Disease (Dr. Bojorquez) on board-->help appreciated * Criteria: leukocytosis, hypotension, bandemia, hypothermia, source of infections: empyema, uti, bacteremia * Lactic acid: 3.5-->1.7 * elevated procalcitonin: 1.49-->0.83 on 11/11/18 * Blood culture (11/08/18): Klebsiella pneumoniae * Sensitive to Zosyn with LUPE of less than 4 * Blood culture (11/11/18): Negative to date * Urine culture (11/08/18): Enterococcus Faecalis * Restarted Vancomycin 1 gram IV Q12H 11/11/18 in light of culture results * MRSA (11/08/18): not detected * Pleural fluid (11/09/18): no acid fast bacilli * Pleural fluid (11/09/18): Streptococcus anginosus which is sensitive to Vancomycin which the patient was restarted on 11/11/18 * Chest xray (11/08/18): layering left pleural effusion and/or consolidation * Chest xray (11/09/18): slight increase in left perihilar/basilar opacity. small left pleural effusion, grossly unchanged * Iv abx: * Zosyn 3.375 g IV Q6H (active since 11/08/18) * Vancomycin 1 gram IV Q12 (11/08/18 through 11/11/18): spoke with ID Dr. Bojorquez 11/12/18: Zosyn will cover the Klebsiella, Streptococcus and the En terococcus * CT Chest 11/12/18: moderate left sided hydropneumothorax, moderate right pleural effusion, bilateral lower lobe consolidations, mediastinal lymphadenopathy, moderate hiatal hernia with gastric wall thickening Status: Acute (2) Empyema; Loculated Left Pleural effusion Assessment & Plan: * Thoracic Surgery (Dr. Bro) on board-->help appreciated * VATS procedure cancelled on 11/12/18 * Repeat CT Chest ordered 11/12/18 * Chest xray (11.08.18): layering left pleural effusion and/or consolidation * Chest xray (11/09/18): slight increase in left perihilar/basilar opacity. small left pleural effusion, grossly unchanged * S/P IR thoracentesis 11/09/18; placement of pigtail catheter * Pleural fluid (11/09/18): Streptococcus anginosus which is sensitive to Vancomycin which the patient was restarted on 11/11/18 * Pleural fluid (11/09/18): moderate PMNs, moderate gram positive cocci * Echocardiogram (08/20/18): left ventricular function is normal, left ventricular ejection fraction is within the the normal range about 55%, mild mitral valve regurgitation noted Status: Acute (3) Anemia Assessment & Plan: * Thoracic Surgery (Dr. Bro) on board-->help appreciated * GI (Dr. Aaron) on board-->help appreciated * Likely secondary to the suspicious mass found on EGD performed on 11/12/18? * On admission: hgb 10-->5 * blood transfusion consent obtained by resident 11/08/18 * given 3 units of PRBC overnight night and 1 FFP unit * rectal negative * ferritin low * iron low: will not repleat at this time considering multiple infections as documented in Assessment/Plan #1 * tibc: 148 low * transferrin low * Stable 8.6 since blood transfusion 11/08/18 * Reticulocyte count: 2.2--> reticulocyte index: 0.12-->hypoproliferation <2 * Folate low * B12: 967 (low) * Occult blood: negative * CT Chest/Abdomen/pelvis (11/08/18): ascites, anasarca, interval loculated left pleural effusion, appearance of GE junction is indeterminate here a hiatal hernia vs mass Status: Acute (4) Cirrhosis Assessment & Plan: * GI (Dr. Aaron) on board-->help appreciated * CT Chest/Abdomen/pelvis IV contrast (11/08/18): prior amount of ascites and anasarca has improved. further findings per report * Abdominal US (08/18/18): limited study. echogenic liver may be seen in hepatic parenchymal disease or fatty infiltrate. nodular hepatic contour. cholelithiasis. gallbladder wall thickening/pericholecystic edema. negative sonographic Cespedes's small abdominal ascites * Hepatitis Panel negative * Blood alcohol <10 * Patient notes he has drinking 3 shots of vodka X30 years. Status: Acute (5) Diabetes mellitus 2 Assessment & Plan: * Hgba1c: 8.1 * Patient is off metformin given elevated lactic on admission * RISS ACHS * Accuchecks QAC and HS Status: Chronic (6) GE junction Mass Assessment & Plan: * Thoracic Surgery (Dr. Bro) on board-->help appreciated * GI (Dr. Aaron) on board-->help appreciated * CT Chest/Abdomen/pelvis (11/08/18): ascites, anasarca, interval loculated left pleural effusion, appearance of GE junction is indeterminate here a hiatal hernia vs mass * Patient is S/P Upper EGD on 11/12/18 and suspicious mass noted from the lower Esophagus into Gastric Fundus. Will follow up pathology and once results known, will get Palliative Care and Heme/Onc on board Status: Acute (7) Alcohol use Assessment & Plan: * Ciwa protocol * Aspiration precautions * Seizure precautions * Folic acid 1mg PO Daily * MVI tab PO daily * Thiamine 100mg PO daily * 3 shots of vodka X 30 years history * Monitor for withdrawal; patient is not currently in withdrawal * Abdominal US (08/18/18): limited study. Echogenic liver may be seen in hepatic parenchymal disease or fatty infiltrate. Nodular hepatic contour. cholelithiasis. Gallbladder wall thickening/pericholecystic edema. Negative sonographic Cespedes's small abdominal ascites Status: Acute (8) Tobacco use Assessment & Plan: * 1 ppd X30 years * Nicotine patch daily * Advised smoking cessation Status: Acute (9) Cachexia Assessment & Plan: * Related to alcohol, smoking, malnutrition, AND likely related to suspicious GE mass? Status: Acute (10) Ulcer of sacral region, stage 1 Assessment & Plan: * Wound Care Nurse Joseph Amaya is on board: Charlene Price and continue to turn patient every 2 hours Status: Acute (11) Prophylactic measure Status: Acute * PT/OT eval * Protonix 40mg IV q12H * Full code * Lovenox 40mg subq daily for DVT ppx * Bilateral LE Venous Doppler 11/12/18: NO DVTs Disposition: Repeat Blood Culture 11/11/18: negative to date Pathology report EGD biopsies: preliminary findings indicate Squamous Cell CA Palliative Care Nurse Rosas and Heme/Onc Dr. Melody Paredes to provide their input/recommendations Await patient decision concerning PEG Tube Placement Nestor Sebastian D.O.
--- NOTE | 2018-11-13 07:53 | CP.PCM.PN ---
<Anil Quintero - Last Filed: 11/13/18 08:11> Subjective - Date & Time of Evaluation Date of Evaluation: 11/13/18 Time of Evaluation: 07:53 - Subjective Subjective: GI Fellow PGY4, progress note. No acute overnight events. No complaints. Tolerating CLD, he is drinking supplemental protein drinks. Passing flatus. Denies fever, abdominal pain, SOB. Objective - Vital Signs/Intake and Output Vital Signs (last 24 hours): Temp Pulse Resp BP Pulse Ox 98.2 F 70 20 129/70 98 11/13/18 04:00 11/13/18 04:00 11/13/18 04:00 11/13/18 04:00 11/13/18 04:00 Intake and Output: 11/13/18 11/13/18 06:59 18:59 Intake Total 300 Output Total 570 Balance -270 - Medications Medications: Current Medications Acetaminophen (Tylenol 325mg Tab) 650 mg PO Q6 PRN PRN Reason: Fever >100.4 F Last Admin: 11/10/18 00:40 Dose: 650 mg Albuterol/Ipratropium (Duoneb 3 Mg/0.5 Mg (3 Ml) Ud) 3 ml INH RQ6 [facility] Last Admin: 11/13/18 02:16 Dose: Not Given Dextrose (Dextrose 50% Inj) 0 ml IV STAT PRN; Protocol PRN Reason: Hypoglycemia Protocol Dextrose (Glutose 15) 0 gm PO ONCE PRN; Protocol PRN Reason: Hypoglycemia Protocol Enoxaparin Sodium (Lovenox) 40 mg SC DAILY [facility] Last Admin: 11/11/18 09:26 Dose: 40 mg Folic Acid (Folic Acid) 1 mg PO DAILY [facility] Last Admin: 11/12/18 12:12 Dose: 1 mg Glucagon (Glucagen Diagnostic Kit) 0 mg IM STAT PRN; Protocol PRN Reason: Hypoglycemia Protocol Piperacillin Sod/Tazobactam Sod (Zosyn 3.375 Gm Iv Premix) 3.375 gm in 50 mls @ 100 mls/hr IVPB Q6H [facility]; Protocol Last Admin: 11/13/18 02:18 Dose: 100 mls/hr Potassium Phosphate 30 mmole/ (Sodium Chloride) 260 mls @ 63 mls/hr IV ONCE ONE Stop: 11/13/18 12:37 Insulin Human Regular (Novolin R) 0 unit SC ACHS [facility]; Protocol Last Admin: 11/12/18 21:20 Dose: Not Given Multivitamins (Hexavitamin) 1 tab PO DAILY [facility] Last Admin: 11/12/18 12:13 Dose: 1 tab Nicotine (Nicoderm Cq) 1 patch TD DAILY [facility] Last Admin: 11/12/18 09:12 Dose: 1 patch Pantoprazole Sodium (Protonix Inj) 40 mg IVP DAILY [facility] Last Admin: 11/12/18 09:08 Dose: 40 mg Sodium Chloride ([place] Baby Saline 30 Ml) 1 ml RODNEY BID [facility] Last Admin: 11/12/18 17:30 Dose: 1 spr Thiamine HCl (Vitamin B1 Tab) 100 mg PO DAILY [facility] Last Admin: 11/12/18 12:13 Dose: 100 mg - Labs Labs: 11/13/18 06:00 11/13/18 05:55 PT 15.2 SECONDS (9.7-12.2) H 11/12/18 06:13 INR 1.4 11/12/18 06:13 APTT 29 SECONDS (21-34) 11/12/18 06:13 - Constitutional Appears: Non-toxic, No Acute Distress, Cachectic, Chronically Ill - Head Exam Head Exam: ATRAUMATIC, NORMAL INSPECTION - Eye Exam Eye Exam: EOMI, Normal appearance - Respiratory Exam Respiratory Exam: Clear to Ausculation Bilateral, NORMAL BREATHING PATTERN - Cardiovascular Exam Cardiovascular Exam: REGULAR RHYTHM, +S1, +S2 - GI/Abdominal Exam GI & Abdominal Exam: Soft, Normal Bowel Sounds. absent: Tenderness - Extremities Exam Extremities Exam: Pedal Edema. absent: Tenderness - Neurological Exam Neurological Exam: Alert, Awake, Oriented x3 - Psychiatric Exam Psychiatric exam: Depressed, Flat Affect - Skin Skin Exam: Pallor, Warm Assessment and Plan - Assessment and Plan (Free Text) Assessment: 58 year old male with PMH of Diabetes presenting with weakness and fall. Recent discharge 08/25/18 due to sepsis with gram positive bacteremia. GI consultation for symptomatic acute on chronic anemia in setting of weakness, fall, and unintentional weight loss. No prior EGD or colonoscopy. #Acute Blood loss anemia due to bleeding esophageal mass #Esophageal Mass, Large #Empyema, left, possibly due to aspiration -11/09 left thoracentesis-purulent, empyema. 800 cc removed #Weight loss #Malnourished, severe #T2DM Plan: -11/12 EGD showed partially obstructing, large, friable, bleeding esophageal mass, ~11cm in length from mid-esophagus extending into the stomach. There was also possible kemar esophagitis. -Pathology PENDING -Recommend oncology evaluation for plan of care (surgery, chemoradiation, paliative?) -Patient will likely benefit from PEG tube placement after plan of care established -Clear liquid diet only. High risk for aspiration and esophageal obstruction. -Educated the importance of nutrition and protein intake. He should be drinking at least 3 protein supplements per day. We will consult slice plug cutter operator for further recommendations. -H/H with appropriate response to transfusion, continue to monitor -Continue PPI PO daily -Colonoscopy as an outpatient depending on clinical course. -No further immediate GI needs. We will sign-off. Please reconsult when plan of care established. Case discussed with Dr. Aaron, see attestation. <Ramiro Aaron - Last Filed: 11/13/18 09:03> Objective - Vital Signs/Intake and Output Vital Signs (last 24 hours): Temp Pulse Resp BP Pulse Ox 98.3 F 77 18 117/70 97 11/13/18 08:00 11/13/18 08:00 11/13/18 08:00 11/13/18 08:00 11/13/18 08:00 Intake and Output: 11/13/18 11/13/18 06:59 18:59 Intake Total 300 300 Output Total 570 Balance -270 300 - Medications Medications: Current Medications Acetaminophen (Tylenol 325mg Tab) 650 mg PO Q6 PRN PRN Reason: Fever >100.4 F Last Admin: 11/10/18 00:40 Dose: 650 mg Albuterol/Ipratropium (Duoneb 3 Mg/0.5 Mg (3 Ml) Ud) 3 ml INH RQ6 [facility] Last Admin: 11/13/18 02:16 Dose: Not Given Dextrose (Dextrose 50% Inj) 0 ml IV STAT PRN; Protocol PRN Reason: Hypoglycemia Protocol Dextrose (Glutose 15) 0 gm PO ONCE PRN; Protocol PRN Reason: Hypoglycemia Protocol Enoxaparin Sodium (Lovenox) 40 mg SC DAILY [facility] Last Admin: 11/11/18 09:26 Dose: 40 mg Folic Acid (Folic Acid) 1 mg PO DAILY [facility] Last Admin: 11/12/18 12:12 Dose: 1 mg Glucagon (Glucagen Diagnostic Kit) 0 mg IM STAT PRN; Protocol PRN Reason: Hypoglycemia Protocol Piperacillin Sod/Tazobactam Sod (Zosyn 3.375 Gm Iv Premix) 3.375 gm in 50 mls @ 100 mls/hr IVPB Q6H [facility]; Protocol Last Admin: 11/13/18 08:00 Dose: 100 mls/hr Potassium Phosphate 30 mmole/ (Sodium Chloride) 260 mls @ 63 mls/hr IV ONCE ONE Stop: 11/13/18 12:37 Last Admin: 11/13/18 08:27 Dose: 63 mls/hr Insulin Human Regular (Novolin R) 0 unit SC ACHS [facility]; Protocol Last Admin: 11/13/18 08:15 Dose: 2 units Multivitamins (Hexavitamin) 1 tab PO DAILY [facility] Last Admin: 11/12/18 12:13 Dose: 1 tab Nicotine (Nicoderm Cq) 1 patch TD DAILY [facility] Last Admin: 11/12/18 09:12 Dose: 1 patch Pantoprazole Sodium (Protonix Ec Tab) 40 mg PO DAILY [facility] Sodium Chloride ([place] Baby Saline 30 Ml) 1 ml RODNEY BID [facility] Last Admin: 11/12/18 17:30 Dose: 1 spr Thiamine HCl (Vitamin B1 Tab) 100 mg PO DAILY [facility] Last Admin: 11/12/18 12:13 Dose: 100 mg - Labs Labs: 11/13/18 06:00 11/13/18 05:55 PT 15.2 SECONDS (9.7-12.2) H 11/12/18 06:13 INR 1.4 11/12/18 06:13 APTT 29 SECONDS (21-34) 11/12/18 06:13 Attending/Attestation - Attestation I have personally seen and examined this patient.: Yes I have fully participated in the care of the patient.: Yes I have reviewed all pertinent clinical information, including history, physical exam and plan: Yes Notes (Text): 11/13/18 08:58 I have seen and examined patient with GI fellow. No acute events overnight, he is seen resting in bed comfortably. He denies abdominal pain, nausea, vomiting, fever/chills. Tolerating PO liquids without difficulty. Review of vitals from today are normal. DM Weight loss ETOH cirrhosis Sepsis, empyema s/p chest tube placement Iron deficiency anemia s/p EGD yesterday showing large partially obstructing esophageal lesion extending distally past GEJ - Clear liquid diet as tolerated - Awaiting EGD biopsy results - Follow up CT surgical recommendations - Suggest oncology evaluation - Patient will likely require future feeding tube placement for ongoing nutritional support. Timing of this will depend on surgical/oncology plan as well as patient wishes. Overall prognosis is guarded, will continue to monitor patient clinical course.
[2018-11-13 08:05] LABS: BANDS 14 % (0-2); EOSINOPHIL 2 % (0-4); LYMPHOCYTE 8 % (20-40); MONOCYTE 4 % (0-10); NEUTROPHIL 72 % (50-75); PLATELET ESTIMATE NORMAL (NORMAL); TOTAL CELLS COUNTED 100
[2018-11-13 08:06] LABS: ANISOCYTOSIS SLIGHT; HYPOCHROMIC SLIGHT
[2018-11-13 08:07] LABS: POLYCHROMIC SLIGHT
[2018-11-13] MEDS: (Novolin R) Insulin Human Regular 100 units/ml vial SC SCH ×3 (08:15→16:42)
[2018-11-13] MEDS ORDERED: Potassium Phosphate 30 MMOLE in Sodium Chloride 0.9% 250 ML IV ONE (08:30)
[2018-11-13] MEDS: Enoxaparin 40 mg Syringe SC SCH (10:01)
[2018-11-13] MEDS: Sodium Chloride Nasal 0.65% Soln (30ml) NAS SCH ×2 (10:02→18:06)
[2018-11-13] MEDS: Pantoprazole 40 mg EC Tab PO SCH (10:02)
[2018-11-13] MEDS: Multiple Vitamins Tab PO SCH (10:02)
--- NOTE | 2018-11-13 11:29 | VASCLAB ---
Date of service: 11/12/2018 PROCEDURE: Lower Extremity Venous Duplex Exam. HISTORY: Bilateral LE edema. Hx of Suspicious Mass Esophag PRIORS: None. TECHNIQUE: Bilateral common femoral, femoral, popliteal and posterior tibial, peroneal and great saphenous veins were evaluated. Flow was assessed with color Doppler, compressibility, assessment of phasic flow and augmentation response. Report prepared by Jose Bartholomew, BS, RVT FINDINGS: RIGHT: 1. Common Femoral Vein: 1.1. Compressibility - Fully compressible: Thrombus - None : Flow - Phasic: Augmentation -Normal: Reflux - None. 2. Femoral Vein: 2.1. Compressibility - Fully compressible: Thrombus - None : Flow - Phasic: Augmentation -Normal: Reflux - None. 3. Popliteal Vein: 3.1. Compressibility - Fully compressible: Thrombus - None : Flow - Phasic: Augmentation -Normal: Reflux - None. 4. Posterior Tibial Vein: 4.1. Compressibility - Fully compressible: Thrombus - None: Flow - Phasic: Augmentation -Normal: Reflux - None. 5. Peroneal Vein: 5.1. Compressibility - Fully compressible: Thrombus - None: Flow - Phasic: Augmentation -Normal: Reflux - None. 6. Great Saphenous Vein: 6.1. Compressibility - Fully compressible: Thrombus - None: Flow - Phasic: Augmentation - Normal: Reflux - None. LEFT: 1. Common Femoral Vein: 1.1. Compressibility - Fully compressible: Thrombus - None: Flow - Phasic: Augmentation -Normal: Reflux - None. 2. Femoral Vein: 2.1. Compressibility - Fully compressible: Thrombus - None: Flow - Phasic: Augmentation -Normal: Reflux - None. 3. Popliteal Vein: 3.1. Compressibility - Fully compressible: Thrombus - None : Flow - Phasic: Augmentation -Normal: Reflux - None. 4. Posterior Tibial Vein: 4.1. Compressibility - Fully compressible: Thrombus - None: Flow - Phasic: Augmentation -Normal: Reflux - None. 5. Peroneal Vein: 5.1. Compressibility - Fully compressible: Thrombus - None: Flow - Phasic: Augmentation -Normal: Reflux - None. 6. Great Saphenous Vein: 6.1. Compressibility - Fully compressible: Thrombus - None: Flow - Phasic: Augmentation - Normal: Reflux - None. OTHER FINDINGS: Right: None significant. Left: None significant. IMPRESSION: Right: No evidence of deep or superficial vein thrombosis of the right lower extremity. Normal valve function noted of the right side. Left: No evidence of deep or superficial vein thrombosis of the left lower extremity. Normal valve function noted of the left side.
--- NOTE | 2018-11-13 13:40 | PCM.PSYCH ---
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 Patient admitted to the hospital on 11/08 for acute anemia possible, s/p fall with sepsis and left pleural effusion, recently had an EGD done during hospitalization with results showing GE junction mass suspicious for malignancy, awaiting pathology. Patient aware of findings, states is worried, but waiting for results. Patient admits having depression in the past, but has never seen a psychiatrist or had a diagnosis made. Patient has not taken medications for depression or any other psych issues in the past. Patient admits to sleeping "like a baby" last night, denies feeling "down", denies trouble concentration, however, states co-workers have noticed him having trouble concentrating since he was changed to another department in his job. Patient denies feeling guilty, or denies any suicidal or homocidal ideation or attempts in the past. Patient admits to drinking 3 shots of vodka every day, however states he has cut down from 5-6+ shots of vodka, in addition to beer. Patient has been drinking since the . Patient is a current smoker, smoke a little less than a pack a day since the . Denies any drug use. Patient denies any withdrawal symptoms, such as agitation, fever, rapid heart rate, abdominal discomfort, nausea or vomiting. Pmhx: DM2, CHF ALL: denies (as per chart review, flaxseed) Psych hx: denies Fm Psych hx: denies Current Medications: Active Medications Generic Name Dose Route Start Last Admin Trade Name Freq PRN Reason Stop Dose Admin Acetaminophen 650 mg 11/08/18 18:40 11/10/18 00:40 Tylenol 325mg Tab PO 650 mg Q6 PRN Administration Fever >100.4 F Albuterol/Ipratropium 3 ml 11/10/18 20:00 11/13/18 09:12 Duoneb 3 Mg/0.5 Mg (3 Ml) Ud INH 3 ml RQ6 EDER Administration Dextrose 0 ml 11/08/18 14:57 Dextrose 50% Inj IV STAT PRN Hypoglycemia Protocol Protocol Dextrose 0 gm 11/08/18 14:57 Glutose 15 PO ONCE PRN Hypoglycemia Protocol Protocol Enoxaparin Sodium 40 mg 11/10/18 10:45 11/13/18 10:01 Lovenox SC 40 mg DAILY EDER Administration Fluconazole 100 mg 11/14/18 10:00 Diflucan PO DAILY EDER Protocol Folic Acid 1 mg 11/11/18 10:00 11/13/18 10:02 Folic Acid PO 1 mg DAILY EDER Administration Glucagon 0 mg 11/08/18 14:57 Glucagen Diagnostic Kit IM STAT PRN Hypoglycemia Protocol Protocol Piperacillin Sod/Tazobactam Sod 3.375 gm in 50 mls @ 100 mls/hr 11/08/18 20:30 11/13/18 08:00 Zosyn 3.375 Gm Iv Premix IVPB 100 mls/hr Q6H EDER Administration Protocol Insulin Human Regular 0 unit 11/10/18 17:07 11/13/18 12:13 Novolin R SC 3 units ACHS EDER Administration Protocol Multivitamins 1 tab 11/09/18 10:00 11/13/18 10:02 Hexavitamin PO 1 tab DAILY EDER Administration Nicotine 1 patch 11/09/18 10:00 11/13/18 10:02 Nicoderm Cq TD 1 patch DAILY EDER Administration Pantoprazole Sodium 40 mg 11/13/18 10:00 11/13/18 10:02 Protonix Ec Tab PO 40 mg DAILY EDER Administration Sodium Chloride 1 ml 11/10/18 18:00 11/13/18 10:02 [place] Baby Saline 30 Ml RODNEY 1 spr BID EDER Administration Thiamine HCl 100 mg 11/09/18 10:00 11/13/18 10:02 Vitamin B1 Tab PO 100 mg DAILY EDER Administration Past Psychiatric History - Past Psychiatric History Pertinent Medical Hx (Current Medical&Sleep Prob, Allergies): Allergies Allergy/AdvReac Type Severity Reaction Status Date / Time flaxseed Allergy SHORTNESS Verified 11/12/18 08:09 OF BREATH Folic Acid 1 mg PO DAILY #30 tab 08/25/18 Multivitamins [Hexavitamin] 1 tab PO DAILY #30 tab 08/25/18 metFORMIN [glucOPHAGE] 1,000 mg PO BID 11/08/18 Review of Systems - Psychiatric Psychiatric: absent: Abnormal Sleep Pattern, Anxiety, Auditory Hallucinations, Change in Appetite, Depression, Difficulty Concentrating, Hopelessness, Suicidal Ideation, Visual Hallucinations Mental Status Examination - Personal Presentation Personal Presentation: Looks stated age - Affect Affect: Blunted - Motor Activity Motor Activity: Calm - Reliability in Providing Information Reliability in Providing Information: Fair - Speech Speech: Organized - Mood Mood: Depressed - Formal Thought Process Formal Thought Process: No Impairment - Cognitive Functions Orientation: Person, Place, Situation, Time Sensorium: Alert Attention/Concentration: Attentive Abstract Thinking: [place] Estimate of Intelligence: Average Judgement: Intact, as evidence by: Insight regarding need for hospitalization Memory: Remote intact, as evidenced by: Abilit to recall sig. life events - Strength & Assets Inventory Strength & Assets Inventory: Cooperative DSM 5 DX - DSM 5 DSM 5 Diagnosis: Major depressive disorder - Chronic Alcohol use disorder - moderate Tobacco use disorder - severe - Recommended/Plan of Treatment Treatment Recommendations and Plan of Treatment: medication as needed continue folic acid, thiamine, multivitamins continue nicotine patch as needed continue management as per med team Support and psychotherapy provided After care plan discussed Plan discussed w/ Dr Xiao
--- NOTE | 2018-11-13 14:21 | CP.PCM.PN ---
Subjective - Date & Time of Evaluation Date of Evaluation: 11/13/18 Time of Evaluation: 07:00 - Subjective Subjective: Patient seen and examined. S/p endoscopy. ~300cc/24 hrs of purulent drainage form chest pigtail catheter. Objective - Vital Signs/Intake and Output Vital Signs (last 24 hours): Temp Pulse Resp BP Pulse Ox 98.3 F 77 18 117/70 97 11/13/18 08:00 11/13/18 08:00 11/13/18 08:00 11/13/18 08:00 11/13/18 08:00 Intake and Output: 11/13/18 11/13/18 06:59 18:59 Intake Total 300 300 Output Total 570 Balance -270 300 - Medications Medications: Current Medications Acetaminophen (Tylenol 325mg Tab) 650 mg PO Q6 PRN PRN Reason: Fever >100.4 F Last Admin: 11/10/18 00:40 Dose: 650 mg Albuterol/Ipratropium (Duoneb 3 Mg/0.5 Mg (3 Ml) Ud) 3 ml INH RQ6 EDER Last Admin: 11/13/18 09:12 Dose: 3 ml Dextrose (Dextrose 50% Inj) 0 ml IV STAT PRN; Protocol PRN Reason: Hypoglycemia Protocol Dextrose (Glutose 15) 0 gm PO ONCE PRN; Protocol PRN Reason: Hypoglycemia Protocol Enoxaparin Sodium (Lovenox) 40 mg SC DAILY [facility] Last Admin: 11/13/18 10:01 Dose: 40 mg Fluconazole (Diflucan) 100 mg PO DAILY [facility]; Protocol Folic Acid (Folic Acid) 1 mg PO DAILY [facility] Last Admin: 11/13/18 10:02 Dose: 1 mg Glucagon (Glucagen Diagnostic Kit) 0 mg IM STAT PRN; Protocol PRN Reason: Hypoglycemia Protocol Piperacillin Sod/Tazobactam Sod (Zosyn 3.375 Gm Iv Premix) 3.375 gm in 50 mls @ 100 mls/hr IVPB Q6H [facility]; Protocol Last Admin: 11/13/18 08:00 Dose: 100 mls/hr Insulin Human Regular (Novolin R) 0 unit SC ACHS [facility]; Protocol Last Admin: 11/13/18 12:13 Dose: 3 units Multivitamins (Hexavitamin) 1 tab PO DAILY [facility] Last Admin: 11/13/18 10:02 Dose: 1 tab Nicotine (Nicoderm Cq) 1 patch TD DAILY [facility] Last Admin: 11/13/18 10:02 Dose: 1 patch Pantoprazole Sodium (Protonix Ec Tab) 40 mg PO DAILY [facility] Last Admin: 11/13/18 10:02 Dose: 40 mg Sodium Chloride ([place] Baby Saline 30 Ml) 1 ml RODNEY BID [facility] Last Admin: 11/13/18 10:02 Dose: 1 spr Thiamine HCl (Vitamin B1 Tab) 100 mg PO DAILY [facility] Last Admin: 11/13/18 10:02 Dose: 100 mg - Labs Labs: 11/13/18 06:00 11/13/18 05:55 PT 15.2 SECONDS (9.7-12.2) H 11/12/18 06:13 INR 1.4 11/12/18 06:13 APTT 29 SECONDS (21-34) 11/12/18 06:13 - Constitutional Appears: No Acute Distress - Head Exam Head Exam: NORMOCEPHALIC - Eye Exam Eye Exam: EOMI, Normal appearance - ENT Exam ENT Exam: Mucous Membranes Moist - Cardiovascular Exam Cardiovascular Exam: +S1, +S2 - GI/Abdominal Exam GI & Abdominal Exam: Soft - Neurological Exam Neurological Exam: Alert, Awake, Oriented x3 - Skin Skin Exam: Dry, Intact, Warm Assessment and Plan - Assessment and Plan (Free Text) Assessment: 58 y/o M w/ Empyema s/p thoracocentesis and pigtail placement on 11/09 Plan: -Endoscopy: 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 Patterson Thoracic Surgery Attending Rhonda PGY 3
--- NOTE | 2018-11-13 15:02 | CP.PCM.CON ---
History of Present Illness - History of Present Illness History of Present Illness: 58 year old male with a history of tobacco abuse, alcoholism, DM, CHF, presenting s/p fall, found to have sepsis, empyema s/p chest tube, anemia, found to have an esophageal mass concerning for malignancy. The patient notes to progressive functional decline and 60-70 pound unintentional weightloss over several months. He feels his appetite is diminished and also has dysphagia to meats. An EGD revealed a mid esophageal mass extending past to GE junction. Past medical history: tobacco abuse, alcoholism, DM, CHF Past surgical history: inguinal hernia repair Family history: Denies Social history: 1ppd x 35 years, 3-5 shots of vodka daily Allergies: NKDA Review of systems: All remaining review of systems including HEENT, cardiovascular, respiratory, gastrointestinal, genitourinary, musculoskeletal, dermatologic, neurologic, and psychiatric are negative unless mentioned in the HPI. Past Patient History - Past Medical History & Family History Past Medical History?: Yes - Past Social History Smoking Status: Light Smoker < 10 Cigarettes Daily - CARDIAC Hx Cardiac Disorders: No Other/Comment: Cardiomegaly. HYPOTENSION - PULMONARY Hx Pneumonia: Yes - NEUROLOGICAL Hx Neurological Disorder: No - HEENT Hx HEENT Problems: No - RENAL Hx Chronic Kidney Disease: No - ENDOCRINE/METABOLIC Hx Endocrine Disorders: Yes Hx Diabetes Mellitus Type 2: Yes - HEMATOLOGICAL/ONCOLOGICAL Hx Anemia: Yes - INTEGUMENTARY Hx Dermatological Problems: No - MUSCULOSKELETAL/RHEUMATOLOGICAL Hx Musculoskeletal Disorders: No Hx Falls: No - GASTROINTESTINAL Hx Gastrointestinal Disorders: Yes - GENITOURINARY/GYNECOLOGICAL Hx Genitourinary Disorders: No - PSYCHIATRIC Hx Substance Use: No - SURGICAL HISTORY Other/Comment: Hernia Removed / 1990 - ANESTHESIA Hx Anesthesia: Yes Hx Anesthesia Reactions: No Hx Malignant Hyperthermia: No Meds Allergies/Adverse Reactions: Allergies Allergy/AdvReac Type Severity Reaction Status Date / Time flaxseed Allergy SHORTNESS Verified 11/12/18 08:09 OF BREATH - Medications Medications: Current Medications Acetaminophen (Tylenol 325mg Tab) 650 mg PO Q6 PRN PRN Reason: Fever >100.4 F Last Admin: 11/10/18 00:40 Dose: 650 mg Albuterol/Ipratropium (Duoneb 3 Mg/0.5 Mg (3 Ml) Ud) 3 ml INH RQ6 EDER Last Admin: 11/13/18 09:12 Dose: 3 ml Dextrose (Dextrose 50% Inj) 0 ml IV STAT PRN; Protocol PRN Reason: Hypoglycemia Protocol Dextrose (Glutose 15) 0 gm PO ONCE PRN; Protocol PRN Reason: Hypoglycemia Protocol Enoxaparin Sodium (Lovenox) 40 mg SC DAILY [facility] Last Admin: 11/13/18 10:01 Dose: 40 mg Fluconazole (Diflucan) 100 mg PO DAILY [facility]; Protocol Folic Acid (Folic Acid) 1 mg PO DAILY [facility] Last Admin: 11/13/18 10:02 Dose: 1 mg Glucagon (Glucagen Diagnostic Kit) 0 mg IM STAT PRN; Protocol PRN Reason: Hypoglycemia Protocol Piperacillin Sod/Tazobactam Sod (Zosyn 3.375 Gm Iv Premix) 3.375 gm in 50 mls @ 100 mls/hr IVPB Q6H [facility]; Protocol Last Admin: 11/13/18 08:00 Dose: 100 mls/hr Insulin Human Regular (Novolin R) 0 unit SC ACHS [facility]; Protocol Last Admin: 11/13/18 12:13 Dose: 3 units Multivitamins (Hexavitamin) 1 tab PO DAILY [facility] Last Admin: 11/13/18 10:02 Dose: 1 tab Nicotine (Nicoderm Cq) 1 patch TD DAILY [facility] Last Admin: 11/13/18 10:02 Dose: 1 patch Pantoprazole Sodium (Protonix Ec Tab) 40 mg PO DAILY [facility] Last Admin: 11/13/18 10:02 Dose: 40 mg Sodium Chloride ([place] Baby Saline 30 Ml) 1 ml RODNEY BID [facility] Last Admin: 11/13/18 10:02 Dose: 1 spr Thiamine HCl (Vitamin B1 Tab) 100 mg PO DAILY [facility] Last Admin: 11/13/18 10:02 Dose: 100 mg Physical Exam - Head Exam Head Exam: ATRAUMATIC - Eye Exam Eye Exam: Normal appearance - ENT Exam ENT Exam: Mucous Membranes Dry - Respiratory Exam Respiratory Exam: Decreased Breath Sounds - Cardiovascular Exam Cardiovascular Exam: +S1, +S2 - GI/Abdominal Exam GI & Abdominal Exam: Normal Bowel Sounds - Neurological Exam Neurological exam: Oriented x3 - Psychiatric Exam Psychiatric exam: Normal Affect, Normal Mood - Skin Skin Exam: Warm Results - Vital Signs Recent Vital Signs: Last Vital Signs Temp 98.3 F 11/13/18 08:00 Pulse 77 11/13/18 08:00 Resp 18 11/13/18 08:00 BP 117/70 11/13/18 08:00 Pulse Ox 97 11/13/18 08:00 - Labs Result Diagrams: 11/13/18 06:00 11/13/18 05:55 Labs: Laboratory Results - last 24 hr 11/09/18 11/12/18 11/12/18 10:58 16:17 21:19 WBC RBC Hgb Hct MCV MCH MCHC RDW Plt Count MPV Neut % (Auto) Lymph % (Auto) [place] % (Auto) Eos % (Auto) Baso % (Auto) Neut # (Auto) Lymph # (Auto) [place] # (Auto) Eos # (Auto) Baso # (Auto) Neutrophils % (Manual) Band Neutrophils % Lymphocytes % (Manual) Monocytes % (Manual) Eosinophils % (Manual) Platelet Estimate Polychromasia Hypochromasia (manual) Anisocytosis (manual) Sodium Potassium Chloride Carbon Dioxide Anion Gap BUN Creatinine Est GFR ( Amer) Est GFR (Non-Af Amer) POC Glucose (mg/dL) 311 H 246 H Random Glucose Calcium Phosphorus Magnesium Total Bilirubin AST ALT Alkaline Phosphatase Total Protein Albumin Globulin Albumin/Globulin Ratio Pleural Total Protein <3.0 Pleural LDH 1113 Pleural Glucose <10 L 11/13/18 11/13/18 05:55 06:00 WBC 9.3 RBC 3.14 L Hgb 8.3 L Hct 25.5 L MCV 81.3 MCH 26.6 L MCHC 32.7 L RDW 18.0 H Plt Count 133 MPV 8.3 Neut % (Auto) 79.1 H Lymph % (Auto) 9.8 L [place] % (Auto) 8.2 Eos % (Auto) 2.8 Baso % (Auto) 0.1 Neut # (Auto) 7.3 H Lymph # (Auto) 0.9 L [place] # (Auto) 0.8 Eos # (Auto) 0.3 Baso # (Auto) 0.0 Neutrophils % (Manual) 72 Band Neutrophils % 14 H* Lymphocytes % (Manual) 8 L Monocytes % (Manual) 4 Eosinophils % (Manual) 2 Platelet Estimate Normal Polychromasia Slight Hypochromasia (manual) Slight Anisocytosis (manual) Slight Sodium 130 L Potassium 3.1 L Chloride 96 L Carbon Dioxide 33 H Anion Gap 4 L BUN 3 L Creatinine 0.3 L Est GFR ( Amer) > 60 Est GFR (Non-Af Amer) > 60 POC Glucose (mg/dL) Random Glucose 171 H D Calcium 9.0 Phosphorus 2.4 L Magnesium 1.7 Total Bilirubin 0.5 AST 11 L D ALT 19 L Alkaline Phosphatase 103 Total Protein 5.1 L Albumin 1.9 L Globulin 3.2 Albumin/Globulin Ratio 0.6 L Pleural Total Protein Pleural LDH Pleural Glucose Assessment & Plan (1) Anemia Assessment and Plan: iron deficiency anemia and chronic disease iron supplementation when infection cleared Status: Acute (2) Coagulopathy Assessment and Plan: likely nutritional Status: Acute (3) Esophageal mass Assessment and Plan: prelim squamous cell carcinoma outpatient PET CT for staging if no distant mets; would benefit from chemo+radiation and evaluation for surgical candidacy recommend feeding tube; pt wants to think about it Thank you for this interesting consult. Status: Acute
--- NOTE | 2018-11-13 15:32 | CP.PCM.CON ---
History of Present Illness - History of Present Illness History of Present Illness: lk;lkm;,./Palliative consult requested by Doctor Ludy Sebastian for goals of care discussion Patient was admitted from home after he fail down to his knees. Patient believes he slipped on news paper. After fall, patient's legs felt so weak and he could uhkjhnb,m notygtujmhb get up. Patient BIBA. lk,. Diagnostic studies on this admission were significant for Lung empyema and esophagial mass extending to stomach. Patient is S/P bipsy indicating no malignant cells but [id number] bnthelial cells present. The final report is to . Patient received Chest tube to drain empyema and was placed on IV antibiotics. [id number] Patient complains of difficulties swallowing salad food. GI consult with Doctor Gloria. PEG considered. Patient is to decide upon this. n PMH: Patient has no PMD and was not seen by Doctor for the last 10 years. Soc. 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 Hx: denied Review of Systems - Constitutional Constitutional: Weakness - EENT Eyes: absent: As Per HPI, Blind Spots, Blurred Vision, Change in Vision, Decreased Night Vision, Diplopia, Discharge, Dry Eye, Exophthalmos, Floaters, Irritation, Itchy Eyes, Loss of Peripheral Vision, Pain, Photophobia, Requires Corrective Lenses, Sees Flashes, Spots in Vision, Tunnel Vision, Other Visual Disturbances, Loss of Vision, Other Ears: absent: As Per HPI, Decreased Hearing, Ear Discharge, Ear Pain, Tinnitus, Abnormal Hearing, Disequilibrium, Dizziness, Other Nose/Mouth/Throat: absent: As Per HPI, Epistaxis, Nasal Congestion, Nasal Discharge, Nasal Obstruction, Nasal Trauma, Nose Pain, Post Nasal Drip, Sinus Pain, Sinus Pressure, Bleeding Gums, Change in Voice, Dental Pain, Dry Mouth, Dysphagia, Halitosis, Hoarsness, Lip Swelling, Mouth Lesions, Mouth Pain, Odynophagia, Sore Throat, Throat Swelling, Tongue Swelling, Facial Pain, Neck Pain, Neck Mass, Other - Cardiovascular Cardiovascular: Dyspnea - Respiratory Respiratory: Dyspnea on Exertion Additional comments: SOB when climbing the stairs - Gastrointestinal Additional comments: difficulties swallowing solid food - Genitourinary Genitourinary: absent: As Per HPI, Change in Urinary Stream, Difficulty Urinating, Dysuria, Flank Pain, Hematuria, Pyuria, Nocturia, Urinary Incontinence, Urinary Frequency, Urinary Hesitance, Urinary Urgency, Voiding Freq/Small Amts, Freq UTI, Hx Renal/Bladder Calculi, Hx /Renal Surgery, Bladder Distension, Other - Musculoskeletal Musculoskeletal: Muscle Weakness - Integumentary Integumentary: absent: As Per HPI, Acne, Alopecia, Bleeding Lesions, Change in Hair, Change in Nails, Change in Pigmentation, Changing Lesions, Dry Skin, Erythema, Furuncle, Hirsutism, Lesions, New Lesions, Non-Healing Lesions, Photosensitivity, Pruritus, Rash, Skin Pain, Skin Ulcer, Sores, Striae, Swelling, Unusual Bruising, Wounds, Jaundice, Other - Neurological Neurological: Abnormal Gait Additional comments: Unable to stand up - Psychiatric Psychiatric: absent: As Per HPI, Abnormal Sleep Pattern, Anhedonia, Anxiety, Auditory Hallucinations, Behavioral Changes, Change in Appetite, Change in Libido, Confusion, Depression, Difficulty Concentrating, Hallucinations, Homicidal Ideation, Hopelessness, Irritability, Memory Loss, Mood Swings, Panic Attacks, Paranoia, Suicidal Ideation, Visual Hallucinations, Tactile Hallucinations, Other - Endocrine Endocrine: absent: As Per HPI, Change in Body Appearance, Change in Libido, Cold Intolorance, Deepening of Voice, Excessive Sweating, Fatigue, Flushing, Heat Intolorance, Increase in Ring/Shoe/Hat Size, Palpitations, Polydipsia, Polyphagia, Polyuria, Other - Hematologic/Lymphatic Hematologic: absent: As Per HPI, Easy Bleeding, Easy Bruising, Lymphadenopathy, Other Past Patient History - Past Medical History & Family History Past Medical History?: Yes - Past Social History Smoking Status: Light Smoker < 10 Cigarettes Daily - CARDIAC Hx Cardiac Disorders: No Other/Comment: Cardiomegaly. HYPOTENSION - PULMONARY Hx Pneumonia: Yes - NEUROLOGICAL Hx Neurological Disorder: No - HEENT Hx HEENT Problems: No - RENAL Hx Chronic Kidney Disease: No - ENDOCRINE/METABOLIC Hx Endocrine Disorders: Yes Hx Diabetes Mellitus Type 2: Yes - HEMATOLOGICAL/ONCOLOGICAL Hx Anemia: Yes - INTEGUMENTARY Hx Dermatological Problems: No - MUSCULOSKELETAL/RHEUMATOLOGICAL Hx Musculoskeletal Disorders: No Hx Falls: No - GASTROINTESTINAL Hx Gastrointestinal Disorders: Yes - GENITOURINARY/GYNECOLOGICAL Hx Genitourinary Disorders: No - PSYCHIATRIC Hx Substance Use: No - SURGICAL HISTORY Other/Comment: Hernia Removed / 1990 - ANESTHESIA Hx Anesthesia: Yes Hx Anesthesia Reactions: No Hx Malignant Hyperthermia: No Meds Allergies/Adverse Reactions: Allergies Allergy/AdvReac Type Severity Reaction Status Date / Time flaxseed Allergy SHORTNESS Verified 11/12/18 08:09 OF BREATH - Medications Medications: Current Medications Acetaminophen (Tylenol 325mg Tab) 650 mg PO Q6 PRN PRN Reason: Fever >100.4 F Last Admin: 11/10/18 00:40 Dose: 650 mg Albuterol/Ipratropium (Duoneb 3 Mg/0.5 Mg (3 Ml) Ud) 3 ml INH RQ6 [facility] Last Admin: 11/13/18 09:12 Dose: 3 ml Dextrose (Dextrose 50% Inj) 0 ml IV STAT PRN; Protocol PRN Reason: Hypoglycemia Protocol Dextrose (Glutose 15) 0 gm PO ONCE PRN; Protocol PRN Reason: Hypoglycemia Protocol Enoxaparin Sodium (Lovenox) 40 mg SC DAILY [facility] Last Admin: 11/13/18 10:01 Dose: 40 mg Fluconazole (Diflucan) 100 mg PO DAILY [facility]; Protocol Folic Acid (Folic Acid) 1 mg PO DAILY [facility] Last Admin: 11/13/18 10:02 Dose: 1 mg Glucagon (Glucagen Diagnostic Kit) 0 mg IM STAT PRN; Protocol PRN Reason: Hypoglycemia Protocol Piperacillin Sod/Tazobactam Sod (Zosyn 3.375 Gm Iv Premix) 3.375 gm in 50 mls @ 100 mls/hr IVPB Q6H [facility]; Protocol Last Admin: 11/13/18 08:00 Dose: 100 mls/hr Insulin Human Regular (Novolin R) 0 unit SC ACHS [facility]; Protocol Last Admin: 11/13/18 12:13 Dose: 3 units Multivitamins (Hexavitamin) 1 tab PO DAILY [facility] Last Admin: 11/13/18 10:02 Dose: 1 tab Nicotine (Nicoderm Cq) 1 patch TD DAILY [facility] Last Admin: 11/13/18 10:02 Dose: 1 patch Pantoprazole Sodium (Protonix Ec Tab) 40 mg PO DAILY [facility] Last Admin: 11/13/18 10:02 Dose: 40 mg Sodium Chloride ([place] Baby Saline 30 Ml) 1 ml RODNEY BID [facility] Last Admin: 11/13/18 10:02 Dose: 1 spr Thiamine HCl (Vitamin B1 Tab) 100 mg PO DAILY [facility] Last Admin: 11/13/18 10:02 Dose: 100 mg Physical Exam - Constitutional Appears: In Acute Distress, Chronically Ill - Head Exam Head Exam: ATRAUMATIC, NORMAL INSPECTION, NORMOCEPHALIC - Eye Exam Eye Exam: EOMI, Normal appearance, PERRL Pupil Exam: NORMAL ACCOMODATION, PERRL - ENT Exam ENT Exam: Mucous Membranes Moist, Normal Exam - Neck Exam Neck exam: Positive for: Normal Inspection - Respiratory Exam Respiratory Exam: Decreased Breath Sounds, Prolonged Expiratory Phase, NORMAL BREATHING PATTERN Additional comments: left chest tube drains pus - Cardiovascular Exam Cardiovascular Exam: Tachycardia, REGULAR RHYTHM, +S1, +S2 - GI/Abdominal Exam GI & Abdominal Exam: Normal Bowel Sounds, Soft - Rectal Exam Rectal Exam: Deferred - Exam Exam: NORMAL INSPECTION - Extremities Exam Additional comments: unable to bear weight to both legs, needs max assistance with transfer - Back Exam Back exam: NORMAL INSPECTION - Neurological Exam Neurological exam: Alert, Motor Sensory Deficit, Oriented x3 - Psychiatric Exam Psychiatric exam: Normal Affect, Normal Mood - Skin Skin Exam: Dry, Intact, Normal Color, Warm Results - Vital Signs Recent Vital Signs: Last Vital Signs Temp 98.3 F 11/13/18 08:00 Pulse 77 11/13/18 08:00 Resp 18 11/13/18 08:00 BP 117/70 11/13/18 08:00 Pulse Ox 97 11/13/18 08:00 - Labs Result Diagrams: 11/13/18 06:00 11/13/18 05:55 Labs: Laboratory Results - last 24 hr 11/09/18 11/12/18 11/12/18 10:58 16:17 21:19 WBC RBC Hgb Hct MCV MCH MCHC RDW Plt Count MPV Neut % (Auto) Lymph % (Auto) Dane % (Auto) Eos % (Auto) Baso % (Auto) Neut # (Auto) Lymph # (Auto) Dane # (Auto) Eos # (Auto) Baso # (Auto) Neutrophils % (Manual) Band Neutrophils % Lymphocytes % (Manual) Monocytes % (Manual) Eosinophils % (Manual) Platelet Estimate Polychromasia Hypochromasia (manual) Anisocytosis (manual) Sodium Potassium Chloride Carbon Dioxide Anion Gap BUN Creatinine Est GFR ( Amer) Est GFR (Non-Af Amer) POC Glucose (mg/dL) 311 H 246 H Random Glucose Calcium Phosphorus Magnesium Total Bilirubin AST ALT Alkaline Phosphatase Total Protein Albumin Globulin Albumin/Globulin Ratio Pleural Total Protein <3.0 Pleural LDH 1113 Pleural Glucose <10 L 11/13/18 11/13/18 05:55 06:00 WBC 9.3 RBC 3.14 L Hgb 8.3 L Hct 25.5 L MCV 81.3 MCH 26.6 L MCHC 32.7 L RDW 18.0 H Plt Count 133 MPV 8.3 Neut % (Auto) 79.1 H Lymph % (Auto) 9.8 L Dane % (Auto) 8.2 Eos % (Auto) 2.8 Baso % (Auto) 0.1 Neut # (Auto) 7.3 H Lymph # (Auto) 0.9 L Dane # (Auto) 0.8 Eos # (Auto) 0.3 Baso # (Auto) 0.0 Neutrophils % (Manual) 72 Band Neutrophils % 14 H* Lymphocytes % (Manual) 8 L Monocytes % (Manual) 4 Eosinophils % (Manual) 2 Platelet Estimate Normal Polychromasia Slight Hypochromasia (manual) Slight Anisocytosis (manual) Slight Sodium 130 L Potassium 3.1 L Chloride 96 L Carbon Dioxide 33 H Anion Gap 4 L BUN 3 L Creatinine 0.3 L Est GFR ( Amer) > 60 Est GFR (Non-Af Amer) > 60 POC Glucose (mg/dL) Random Glucose 171 H D Calcium 9.0 Phosphorus 2.4 L Magnesium 1.7 Total Bilirubin 0.5 AST 11 L D ALT 19 L Alkaline Phosphatase 103 Total Protein 5.1 L Albumin 1.9 L Globulin 3.2 Albumin/Globulin Ratio 0.6 L Pleural Total Protein Pleural LDH Pleural Glucose Assessment & Plan - Assessment and Plan (Free Text) Assessment: Palliative consult There is no Advance directive on chart, PPS 30% I reviewed all Medical records, diagnostic studies, examined and interviewed patient, discussed his care with Primary MD and nursing Patient is alert, oriented X 3, with affect that is appropriate, clear speech. Skin pale, dry, no wounds. Hb 8.3. Breath sounds diminished, denies SOB at rest, Left chest tube drains large amount of white matter looking like a puss. Abdomen soft, active bowel sounds, uses urinal/bed aquino. Tolerates clear liquids and pureed diet only, unable to swallow salad food. LEs with pitting edema. Patient is unable to bear weight, needs max assistance for transfer from bed to chair. Denies pain. BP 117/70, HR 70, RR 18, afebrile. WBC 9.3, Band neutrophils 14, Na 130 Cultures on pleural fluids, urine and nasal swab all positive ( please see full lab report). Zosyn Iv and Diflucan PO on board. Goals of care discussed with patient. The pathology report indicates findings of mesothelial cells. I shared this with patient. He took it well. In later conversation with Doctor Ludy Sebastian I learned that there was concern about possible Squamos cell carcinoma but was still to be confirmed. I did not discuss this to a patient. I elicited patient's thoughts and worries. Patient is optimistic and is looking toward the final pathology results. Patient is not very open to talk about his feelings and concerns. he seems to be mostly concerned about his 96 yo mother wh o is home and is attended at present by her daughter. I discussed with patient the esophagieal mass as a possible cause of his difficult swallowing and the PEG proposed by the GI. Patient preferred to continue with pureed diet and see how his symptoms will resolve with the current interventions. Most of all, patient wants to hear about the final Pathology results. Impression * Difficulties swallowing due to esophageal mass * Unable to bear weight * Max assistance needed with transferring * Patient is undecided on care plan; wishes to be given more time before deciding on PEG tube Suggestion * Pureed diet * Provide Full assistance with transferring * Refer to Oncology * Refer to Neurology * Continue Chest tube Palliative care will continue to fallow up with patient and offer support. Advance care discussion 55 min
--- NOTE | 2018-11-13 18:55 | CP.PCM.PN ---
Subjective - Date & Time of Evaluation Date of Evaluation: 11/13/18 Time of Evaluation: 13:30 - Subjective Subjective: Hospitalist Progress Note Patient was seen and examined at 1:30 PM 11/13/18 Patient underwent EGD on Monday11/12/18 and biopsy was taken of mass extending from GE into the Stomach. Preliminary pathology report as per my conversation with GI Dr. Aaron indicated Squamous Cell CA. Spoke with Palliative Care Nurse Rosas and Heme/Oncologist Dr. Melody Paredes and updated them on patient history and the need for their assistance. EGD biopsy also indicated Mallory: Diflucan 100 mg PO 1x/day started by GI 11/14/18 and this should be continued for 21 days through 12/05/18. At this time I do NOT believe that patient is a good surgical candidate for surgery considering the Assessment and Plan #1 below. Will need to follow up with further recommendations from Heme/Oncologist Dr. Melody Paredes as to best course of action: Chemo? Radiation? and then Surgery? Patient will also need a source of nutrition considering that he is currently on clear liquids, which he is tolerating (broth, Ensure Clear, jello were consumed today without any issues). Dr. Aaron recommends possible PEG Tube Placement. I spoke with patient concerning the preliminary pathology report and the need for PEG Tube. He stated that he will think about it. Patient's primary contact and decision maker should he not be able to make decisions on his own is Sister Korin (Home# [phone], ). I have asked patient to have her have me paged once she comes to visit him later today. VATS procedure was placed on hold by Surgery Team for now. CT Chest 11/12/18: moderate left sided hydropneumothorax, moderate right pleural effusion, bilateral lower lobe consolidations, mediastinal lymphadenopathy, moderate hiatal hernia with gastric wall thickening Pigtail Catheter Left Chest continues to output purulent material Upon FULL ROS: NO chest pain at the left pigtail catheter insertion site NO SOB/Cough/Wheezing NO abdominal pain NO n/v/d Has NOT had a bowel movement for the past 1 1/2 weeks but stated that he was not eating much but stated that he felt like he will go today NO other complaints upon FULL ROS Exam: General: Resting comfortably and in NO distress HEENT: NCA, EOMI, PERRLA, NO pharyngeal erythema/exudate, NO lymphadenopathy Cardio: NS1 and NS2, NO M/R/G Resp: Decreased breath sounds on the left lower lung dean GI: BSx4, Soft, ND, NO HSM, NO guarding/rebound tenderness Ext: Pulses are strong and equal, Capillary Refill is 2 seconds, 1+ Pitting Edema bilateral lower legs from ankles to midtibia Neuro: CN II through XII are grossly intact Assessment and Plan (1) Sepsis Urinary tract infection Bacteremia Empyema Assessment & Plan: * Code sepsis 11/08/18 * Infectious Disease (Dr. Bojorquez) on board-->help appreciated * Criteria: leukocytosis, hypotension, bandemia, hypothermia, source of infections: empyema, uti, bacteremia * Lactic acid: 3.5-->1.7 * elevated procalcitonin: 1.49-->0.83 on 11/11/18 * Blood culture (11/08/18): Klebsiella pneumoniae * Sensitive to Zosyn with LUPE of less than 4 * Blood culture (11/11/18): Negative to date * Urine culture (11/08/18): Enterococcus Faecalis * Restarted Vancomycin 1 gram IV Q12H 11/11/18 in light of culture results * MRSA (11/08/18): not detected * Pleural fluid (11/09/18): no acid fast bacilli * Pleural fluid (11/09/18): Streptococcus anginosus which is sensitive to Vancomycin which the patient was restarted on 11/11/18 * Chest xray (11/08/18): layering left pleural effusion and/or consolidation * Chest xray (11/09/18): slight increase in left perihilar/basilar opacity. small left pleural effusion, grossly unchanged * Iv abx: * Zosyn 3.375 g IV Q6H (active since 11/08/18) * Vancomycin 1 gram IV Q12 (11/08/18 through 11/11/18): spoke with ID Dr. Bojorquez 11/12/18: Zosyn will cover the Klebsiella, Streptococcus and the Enterococcus * CT Chest 11/12/18: moderate left sided hydropneumothorax, moderate right pleural effusion, bilateral lower lobe consolidations, mediastinal lymphadenopathy, moderate hiatal hernia with gastric wall thickening Status: Acute (2) Empyema; Loculated Left Pleural effusion Assessment & Plan: * Thoracic Surgery (Dr. Bro) on board-->help appreciated * VATS procedure cancelled on 11/12/18 * Repeat CT Chest ordered 11/12/18 * Chest xray (11.08.18): layering left pleural effusion and/or consolidation * Chest xray (11/09/18): slight increase in left perihilar/basilar opacity. small left pleural effusion, grossly unchanged * S/P IR thoracentesis 11/09/18; placement of pigtail catheter * Pleural fluid (11/09/18): Streptococcus anginosus which is sensitive to Vancomycin which the patient was restarted on 11/11/18 * Pleural fluid (11/09/18): moderate PMNs, moderate gram positive cocci * Echocardiogram (08/20/18): left ventricular function is normal, left ventricular ejection fraction is within the the normal range about 55%, mild mitral valve regurgitation noted Status: Acute (3) Anemia Assessment & Plan: * Thoracic Surgery (Dr. Bro) on board-->help appreciated * GI (Dr. Aaron) on board-->help appreciated * Likely secondary to the suspicious mass found on EGD performed on 11/12/18? * On admission: hgb 10-->5 * blood transfusion consent obtained by resident 11/08/18 * given 3 units of PRBC overnight night and 1 FFP unit * rectal negative * ferritin low * iron low: will not repleat at this time considering multiple infections as documented in Assessment/Plan #1 * tibc: 148 low * transferrin low * Stable 8.6 since blood transfusion 11/08/18 * Reticulocyte count: 2.2--> reticulocyte index: 0.12-->hypoproliferation <2 * Folate low * B12: 967 (low) * Occult blood: negative * CT Chest/Abdomen/pelvis (11/08/18): ascites, anasarca, interval loculated left pleural effusion, appearance of GE junction is indeterminate here a hiatal hernia vs mass Status: Acute (4) Cirrhosis Assessment & Plan: * GI (Dr. Aaron) on board-->help appreciated * CT Chest/Abdomen/pelvis IV contrast (11/08/18): prior amount of ascites and anasarca has improved. further findings per report * Abdominal US (08/18/18): limited study. echogenic liver may be seen in hepatic parenchymal disease or fatty infiltrate. nodular hepatic contour. cholelithiasis. gallbladder wall thickening/pericholecystic edema. negative sonographic Cespedes's small abdominal ascites * Hepatitis Panel negative * Blood alcohol <10 * Patient notes he has drinking 3 shots of vodka X30 years. Status: Acute (5) Diabetes mellitus 2 Assessment & Plan: * Hgba1c: 8.1 * Patient is off metformin given elevated lactic on admission * RISS ACHS * Accuchecks QAC and HS Status: Chronic (6) GE junction Mass Assessment & Plan: * Thoracic Surgery (Dr. Bro) on board-->help appreciated * GI (Dr. Aaron) on board-->help appreciated * CT Chest/Abdomen/pelvis (11/08/18): ascites, anasarca, interval loculated left pleural effusion, appearance of GE junction is indeterminate here a hiatal hernia vs mass * Patient is S/P Upper EGD on 11/12/18 and suspicious mass noted from the lower Esophagus into Gastric Fundus. Will follow up pathology and once results known, will get Palliative Care and Heme/Onc on board Status: Acute (7) Alcohol use Assessment & Plan: * Ciwa protocol * Aspiration precautions * Seizure precautions * Folic acid 1mg PO Daily * MVI tab PO daily * Thiamine 100mg PO daily * 3 shots of vodka X 30 years history * Monitor for withdrawal; patient is not currently in withdrawal * Abdominal US (08/18/18): limited study. Echogenic liver may be seen in hepatic parenchymal disease or fatty infiltrate. Nodular hepatic contour. cholelithias is. Gallbladder wall thickening/pericholecystic edema. Negative sonographic Cespedes's small abdominal ascites Status: Acute (8) Tobacco use Assessment & Plan: * 1 ppd X30 years * Nicotine patch daily * Advised smoking cessation Status: Acute (9) Cachexia Assessment & Plan: * Related to alcohol, smoking, malnutrition, AND likely related to suspicious GE mass? Status: Acute (10) Ulcer of sacral region, stage 1 Assessment & Plan: * Wound Care Nurse Joseph Amaya is on board: Charlene Price and continue to turn patient every 2 hours Status: Acute (11) Prophylactic measure Status: Acute * PT/OT eval * Protonix 40mg IV q12H * Full code * Lovenox 40mg subq daily for DVT ppx * Bilateral LE Venous Doppler 11/12/18: NO DVTs Disposition: Repeat Blood Culture 11/11/18: negative to date Pathology report EGD biopsies: preliminary findings indicate Squamous Cell CA Palliative Care Nurse Rosas and Heme/Onc Dr. Melody Paredes to provide their input/recommendations Await patient decision concerning PEG Tube Placement Nestor Sebastian D.O. Objective - Vital Signs/Intake and Output Vital Signs (last 24 hours): Temp Pulse Resp BP Pulse Ox 98.6 F 78 18 91/57 L 99 11/13/18 16:00 11/13/18 16:00 11/13/18 16:00 11/13/18 16:00 11/13/18 16:00 Intake and Output: 11/13/18 11/13/18 06:59 18:59 Intake Total 300 300 Output Total 570 Balance -270 300 - Medications Medications: Current Medications Acetaminophen (Tylenol 325mg Tab) 650 mg PO Q6 PRN PRN Reason: Fever >100.4 F Last Admin: 11/10/18 00:40 Dose: 650 mg Albuterol/Ipratropium (Duoneb 3 Mg/0.5 Mg (3 Ml) Ud) 3 ml INH RQ6 [facility] Last Admin: 11/13/18 09:12 Dose: 3 ml Dextrose (Dextrose 50% Inj) 0 ml IV STAT PRN; Protocol PRN Reason: Hypoglycemia Protocol Dextrose (Glutose 15) 0 gm PO ONCE PRN; Protocol PRN Reason: Hypoglycemia Protocol Enoxaparin Sodium (Lovenox) 40 mg SC DAILY [facility] Last Admin: 11/13/18 10:01 Dose: 40 mg Fluconazole (Diflucan) 100 mg PO DAILY [facility]; Protocol Folic Acid (Folic Acid) 1 mg PO DAILY [facility] Last Admin: 11/13/18 10:02 Dose: 1 mg Glucagon (Glucagen Diagnostic Kit) 0 mg IM STAT PRN; Protocol PRN Reason: Hypoglycemia Protocol Piperacillin Sod/Tazobactam Sod (Zosyn 3.375 Gm Iv Premix) 3.375 gm in 50 mls @ 100 mls/hr IVPB Q6H [facility]; Protocol Last Admin: 04/02/19 16:20 Dose: 100 mls/hr Insulin Human Regular (Novolin R) 0 unit SC ACHS [facility]; Protocol Last Admin: 11/13/18 16:42 Dose: 6 units Multivitamins (Hexavitamin) 1 tab PO DAILY [facility] Last Admin: 11/13/18 10:02 Dose: 1 tab Nicotine (Nicoderm Cq) 1 patch TD DAILY [facility] Last Admin: 11/13/18 10:02 Dose: 1 patch Pantoprazole Sodium (Protonix Ec Tab) 40 mg PO DAILY [facility] Last Admin: 11/13/18 10:02 Dose: 40 mg Sodium Chloride ([place] Baby Saline 30 Ml) 1 ml RODNEY BID [facility] Last Admin: 11/13/18 18:06 Dose: 1 spr Thiamine HCl (Vitamin B1 Tab) 100 mg PO DAILY [facility] Last Admin: 11/13/18 10:02 Dose: 100 mg - Labs Labs: 11/13/18 06:00 11/13/18 05:55 PT 15.2 SECONDS (9.7-12.2) H 11/12/18 06:13 INR 1.4 11/12/18 06:13 APTT 29 SECONDS (21-34) 11/12/18 06:13
--- NOTE | 2018-11-13 23:23 | CP.PCM.PN ---
Subjective - Date & Time of Evaluation Date of Evaluation: 11/12/18 Time of Evaluation: 18:20 - Subjective Subjective: Patient seen and evaluated Admitted for dyspnea and weight loss feels batter Patient with no cardiac events Objective - Constitutional Appears: Non-toxic, No Acute Distress, Unkempt, Cachectic - Head Exam Head Exam: NORMAL INSPECTION - Eye Exam Eye Exam: EOMI - ENT Exam ENT Exam: Mucous Membranes Moist - Respiratory Exam Respiratory Exam: Rhonchi, NORMAL BREATHING PATTERN. absent: Wheezes - Cardiovascular Exam Cardiovascular Exam: REGULAR RHYTHM, +S1, +S2 - GI/Abdominal Exam GI & Abdominal Exam: Soft, Normal Bowel Sounds. absent: Distended, Firm, Guarding, Rigid, Tenderness, Rebound - Extremities Exam Extremities Exam: Pedal Edema (ankles pitting). absent: Tenderness - Neurological Exam Neurological Exam: Alert, Awake, Oriented x3 - Psychiatric Exam Psychiatric exam: Normal Affect, Normal Mood - Skin Skin Exam: Dry, Pallor, Warm Assessment and Plan (1) Sepsis urinary tract infection bacteremia Empyema Assessment & Plan: * Code sepsis 11/08/18 * Infectious Disease (Dr. Bojorquez) on board-->help appreciated * Criteria: leukocytosis, hypotension, bandemia, hypothemia, source of infections: empyema, uti, bacteremia * Lactic acid: 3.5-->1.7 * elevated procalcitonin: 1.49-->0.83 * procalcitonin 11/11/18 * Blood culture (11/08/18): Klebsiella pneumoniae * Sensitive to Zosyn with LUPE of less than 4 * Blood culture (11/08/18): no growth * Blood culture (11/10/18): pending * Urine culture (11/08/18): Enterococcus Faecalis * Restarted vancomycin today in light of culture results * MRSA (11/08/18): not detected * Pleural fluid (11/09/18): no acid fast bacilli * Pleural fluid (11/09/18): moderate PMNs, moderate gram positive cocci * Chest xray (11/08/18): layering left pleural effusion and/or consolidation * Chest xray (11/09/18): slight increase in left perihilar/basilar opacity. small left pleural effusion, grossly unchanged * Iv abx: * Zosyn 3.375 g IV Q6H (active since 11/08/18) * Vancomycin 1 gram IV Q12 (active since 11/08/18) d/c 11/10/18 Status: Acute (2) Empyema; Loculated Left Pleural effusion Assessment & Plan: * Thoracic Surgery (Dr. Bro) on board-->help appreciated * Follow-up with surgery in the morning to determine bouts is on schedule for Monday, November 12, 2018 * Chest xray (11.08.18): layering left pleural effusion and/or consolidation * Chest xray (11/09/18): slight increase in left perihilar/basilar opacity. small left pleural effusion, grossly unchanged * s/p IR thoracentesis 11/09/18; placement of pigtail catheter * Pending albumin, cell count, glucose, LDH, total protein * Pleural fluid (11/09/18): no acid fast bacilli * Pleural fluid (11/09/18): moderate PMNs, moderate gram positive cocci * Cancelled echo initially completed in Aug 2018 * Echocardiogram (08/20/18): left ventricular function is normal, left ventricular ejection fraction is within the the normal range about 55%, mild mitral valve regurgitation noted Status: Acute (3) Anemia Assessment & Plan: * Thoracic Surgery (Dr. Bro) on board-->help appreciated * GI (Dr. Aaron) on board-->help appreciated * on admission: hgb 10-->5 * blood transfusion consent obtained by resident 11/08/18 * given 3 units of PRBC overnight night and 1 FFP unit * rectal negative * ferritin low * iron low * tibc: 148 low * transferrin low * Stable 8.6 since blood transfusion 11/08 * Reticulocyte count: 2.2--> reticulocyte index: 0.12-->hypoproliferation <2 * Folate low * B12: 967 (low) * occult blood: negative * CT Chest/Abdomen/pelvis (11/08/18): ascites, anasarca, interval loculated left pleural effusion, appearance of GE junction is indeterminate here a hiatal hernia vs mass * Possible VATS on Monday or EGD pending the output from pigtail Status: Acute (4) Cirrhosis Assessment & Plan: * GI (Dr. Aaron) on board-->help appreciated * CT Chest/Abdomen/pelvis IV contrast (11/08/18): prior amount of ascites and anasarca has improved. further findings per report * Abdominal US (08/18/18): limited study. echogenic liver may be seen in hepatic parenchymal disease or fatty infiltrate. nodular hepatic contour. cholelithiasis. gallbladder wall thickening/pericholecystic edema. negative sonographic Cespedes's small abdominal ascites * Hepatitis Panel negative * Blood alcohol <10 * Patient notes he has drinking 3 shots of vodka X30 years. Status: Acute (5) Diabetes mellitus Assessment & Plan: * Hgba1c: 8.1 * Patient is off metformin given elevated lactic on admission * regular insulin sliding scale qAC HS * Accuchecks QAC and HS Status: Chronic (6) Possible GE junction Mass Assessment & Plan: * Thoracic Surgery (Dr. Bro) on board-->help appreciated * GI (Dr. Aaron) on board-->help appreciated * CT Chest/Abdomen/pelvis (11/08/18): ascites, anasarca, interval loculated left pleural effusion, appearance of GE junction is indeterminate here a hiatal hernia vs mass * Possible VATS vs EGD on Monday Status: Acute (7) Alcohol use Assessment & Plan: * ciwa protocol * Aspiration precautions * seizure precautions * Folic acid 1mg PO Daily * MVI tab PO daily * Thiamine 100mg PO daily * 3 shots of vodka X 30 years history * monitor for withdrawal; patient is not in withdrawal * Abdominal US (08/18/18): limited study. echogenic liver may be seen in hepatic parenchymal disease or fatty infiltrate. nodular hepatic contour. cholelithiasis. gallbladder wall thickening/pericholecystic edema. negative sonographic Cespedes's small abdominal ascites Status: Acute (8) Tobacco use Assessment & Plan: * 1 ppd X30 years * nicotine patch daily * advised smoking cessation to avoid premature aging, cancer risk etc Status: Acute (9) Cachexia Status: Acute * related to alcohol, smoking, malnutrition, possible related to cancer pending GE mass? (10) Ulcer of sacral region, stage 1 Assessment & Plan: * bed bound * wound care * turn q2h Status: Acute (11) Prophylactic measure Status: Acute * PT/OT eval * protonix 40mg IV q12H * Full code * Lovenox 40mg subq daily for DVT ppx Objective - Vital Signs/Intake and Output Vital Signs (last 24 hours): Temp Pulse Resp BP Pulse Ox 98.1 F 76 17 106/64 99 11/13/18 20:00 11/13/18 20:00 11/13/18 20:00 11/13/18 20:00 11/13/18 16:00 Intake and Output: 11/13/18 11/14/18 18:59 06:59 Intake Total 1380 Output Total 875 Balance 505 - Medications Medications: Current Medications Acetaminophen (Tylenol 325mg Tab) 650 mg PO Q6 PRN PRN Reason: Fever >100.4 F Last Admin: 11/10/18 00:40 Dose: 650 mg Albuterol/Ipratropium (Duoneb 3 Mg/0.5 Mg (3 Ml) Ud) 3 ml INH RQ6 [facility] Last Admin: 11/13/18 19:37 Dose: 3 ml Dextrose (Dextrose 50% Inj) 0 ml IV STAT PRN; Protocol PRN Reason: Hypoglycemia Protocol Dextrose (Glutose 15) 0 gm PO ONCE PRN; Protocol PRN Reason: Hypoglycemia Protocol Enoxaparin Sodium (Lovenox) 40 mg SC DAILY [facility] Last Admin: 11/13/18 10:01 Dose: 40 mg Fluconazole (Diflucan) 100 mg PO DAILY [facility]; Protocol Folic Acid (Folic Acid) 1 mg PO DAILY [facility] Last Admin: 11/13/18 10:02 Dose: 1 mg Glucagon (Glucagen Diagnostic Kit) 0 mg IM STAT PRN; Protocol PRN Reason: Hypoglycemia Protocol Piperacillin Sod/Tazobactam Sod (Zosyn 3.375 Gm Iv Premix) 3.375 gm in 50 mls @ 100 mls/hr IVPB Q6H [facility]; Protocol Last Admin: 11/13/18 20:28 Dose: 100 mls/hr Insulin Human Regular (Novolin R) 0 unit SC ACHS [facility]; Protocol Last Admin: 11/13/18 16:42 Dose: 6 units Mirtazapine (Remeron) 15 mg PO HS [facility] Multivitamins (Hexavitamin) 1 tab PO DAILY [facility] Last Admin: 11/13/18 10:02 Dose: 1 tab Nicotine (Nicoderm Cq) 1 patch TD DAILY [facility] Last Admin: 11/13/18 10:02 Dose: 1 patch Pantoprazole Sodium (Protonix Ec Tab) 40 mg PO DAILY [facility] Last Admin: 11/13/18 10:02 Dose: 40 mg Sertraline HCl (Zoloft) 25 mg PO DAILY [facility] Sodium Chloride ([place] Baby Saline 30 Ml) 1 ml RODNEY BID [facility] Last Admin: 11/13/18 18:06 Dose: 1 spr Thiamine HCl (Vitamin B1 Tab) 100 mg PO DAILY [facility] Last Admin: 11/13/18 10:02 Dose: 100 mg - Labs Labs: 11/13/18 06:00 11/13/18 05:55 PT 15.2 SECONDS (9.7-12.2) H 11/12/18 06:13 INR 1.4 11/12/18 06:13 APTT 29 SECONDS (21-34) 11/12/18 06:13
--- NOTE | 2018-11-13 23:23 | CP.PCM.PN ---
Subjective - Date & Time of Evaluation Date of Evaluation: 11/13/18 Time of Evaluation: 23:23 - Subjective Subjective: Patient seen and evaluated Admitted for dyspnea and weight loss feels batter Objective - Constitutional Appears: Non-toxic, No Acute Distress, Unkempt, Cachectic - Head Exam Head Exam: NORMAL INSPECTION - Eye Exam Eye Exam: EOMI - ENT Exam ENT Exam: Mucous Membranes Moist - Respiratory Exam Respiratory Exam: Rhonchi, NORMAL BREATHING PATTERN. absent: Wheezes - Cardiovascular Exam Cardiovascular Exam: REGULAR RHYTHM, +S1, +S2 - GI/Abdominal Exam GI & Abdominal Exam: Soft, Normal Bowel Sounds. absent: Distended, Firm, Guarding, Rigid, Tenderness, Rebound - Extremities Exam Extremities Exam: Pedal Edema (ankles pitting). absent: Tenderness - Neurological Exam Neurological Exam: Alert, Awake, Oriented x3 - Psychiatric Exam Psychiatric exam: Normal Affect, Normal Mood - Skin Skin Exam: Dry, Pallor, Warm Assessment and Plan (1) Sepsis urinary tract infection bacteremia Empyema Assessment & Plan: * Code sepsis 11/08/18 * Infectious Disease (Dr. Bojorquez) on board-->help appreciated * Criteria: leukocytosis, hypotension, bandemia, hypothemia, source of infections: empyema, uti, bacteremia * Lactic acid: 3.5-->1.7 * elevated procalcitonin: 1.49-->0.83 * procalcitonin 11/11/18 * Blood culture (11/08/18): Klebsiella pneumoniae * Sensitive to Zosyn with LUPE of less than 4 * Blood culture (11/08/18): no growth * Blood culture (11/10/18): pending * Urine culture (11/08/18): Enterococcus Faecalis * Restarted vancomycin today in light of culture results * MRSA (11/08/18): not detected * Pleural fluid (11/09/18): no acid fast bacilli * Pleural fluid (11/09/18): moderate PMNs, moderate gram positive cocci * Chest xray (11/08/18): layering left pleural effusion and/or consolidation * Chest xray (11/09/18): slight increase in left perihilar/basilar opacity. small left pleural effusion, grossly unchanged * Iv abx: * Zosyn 3.375 g IV Q6H (active since 11/08/18) * Vancomycin 1 gram IV Q12 (active since 11/08/18) d/c 11/10/18 Status: Acute (2) Empyema; Loculated Left Pleural effusion Assessment & Plan: * Thoracic Surgery (Dr. Bro) on board-->help appreciated * Follow-up with surgery in the morning to determine bouts is on schedule for Monday, November 12, 2018 * Chest xray (11.08.18): layering left pleural effusion and/or consolidation * Chest xray (11/09/18): slight increase in left perihilar/basilar opacity. small left pleural effusion, grossly unchanged * s/p IR thoracentesis 11/09/18; placement of pigtail catheter * Pending albumin, cell count, glucose, LDH, total protein * Pleural fluid (11/09/18): no acid fast bacilli * Pleural fluid (11/09/18): moderate PMNs, moderate gram positive cocci * Cancelled echo initially completed in Aug 2018 * Echocardiogram (08/20/18): left ventricular function is normal, left ventricular ejection fraction is within the the normal range about 55%, mild mitral valve regurgitation noted Status: Acute (3) Anemia Assessment & Plan: * Thoracic Surgery (Dr. Bro) on board-->help appreciated * GI (Dr. Aaron) on board-->help appreciated * on admission: hgb 10-->5 * blood transfusion consent obtained by resident 11/08/18 * given 3 units of PRBC overnight night and 1 FFP unit * rectal negative * ferritin low * iron low * tibc: 148 low * transferrin low * Stable 8.6 since blood transfusion 11/08 * Reticulocyte count: 2.2--> reticulocyte index: 0.12-->hypoproliferation <2 * Folate low * B12: 967 (low) * occult blood: negative * CT Chest/Abdomen/pelvis (11/08/18): ascites, anasarca, interval loculated left pleural effusion, appearance of GE junction is indeterminate here a hiatal hernia vs mass * Possible VATS on Monday or EGD pending the output from pigtail Status: Acute (4) Cirrhosis Assessment & Plan: * GI (Dr. Aaron) on board-->help appreciated * CT Chest/Abdomen/pelvis IV contrast (11/08/18): prior amount of ascites and anasarca has improved. further findings per report * Abdominal US (08/18/18): limited study. echogenic liver may be seen in hepatic parenchymal disease or fatty infiltrate. nodular hepatic contour. cholelithiasis. gallbladder wall thickening/pericholecystic edema. negative sonographic Cespedes's small abdominal ascites * Hepatitis Panel negative * Blood alcohol <10 * Patient notes he has drinking 3 shots of vodka X30 years. Status: Acute (5) Diabetes mellitus Assessment & Plan: * Hgba1c: 8.1 * Patient is off metformin given elevated lactic on admission * regular insulin sliding scale qAC HS * Accuchecks QAC and HS Status: Chronic (6) Possible GE junction Mass Assessment & Plan: * Thoracic Surgery (Dr. Bro) on board-->help appreciated * GI (Dr. Aaron) on board-->help appreciated * CT Chest/Abdomen/pelvis (11/08/18): ascites, anasarca, interval loculated left pleural effusion, appearance of GE junction is indeterminate here a hiatal hernia vs mass * Possible VATS vs EGD on Monday Status: Acute (7) Alcohol use Assessment & Plan: * ciwa protocol * Aspiration precautions * seizure precautions * Folic acid 1mg PO Daily * MVI tab PO daily * Thiamine 100mg PO daily * 3 shots of vodka X 30 years history * monitor for withdrawal; patient is not in withdrawal * Abdominal US (08/18/18): limited study. echogenic liver may be seen in hepatic parenchymal disease or fatty infiltrate. nodular hepatic contour. cholelithiasis. gallbladder wall thickening/pericholecystic edema. negative sonographic Cespedes's small abdominal ascites Status: Acute (8) Tobacco use Assessment & Plan: * 1 ppd X30 years * nicotine patch daily * advised smoking cessation to avoid premature aging, cancer risk etc Status: Acute (9) Cachexia Status: Acute * related to alcohol, smoking, malnutrition, possible related to cancer pending GE mass? (10) Ulcer of sacral region, stage 1 Assessment & Plan: * bed bound * wound care * turn q2h Status: Acute (11) Prophylactic measure Status: Acute * PT/OT eval * protonix 40mg IV q12H * Full code * Lovenox 40mg subq daily for DVT ppx Objective - Vital Signs/Intake and Output Vital Signs (last 24 hours): Temp Pulse Resp BP Pulse Ox 98.1 F 76 17 106/64 99 11/13/18 20:00 11/13/18 20:00 11/13/18 20:00 11/13/18 20:00 11/13/18 16:00 Intake and Output: 11/13/18 11/14/18 18:59 06:59 Intake Total 1380 Output Total 875 Balance 505 - Medications Medications: Current Medications Acetaminophen (Tylenol 325mg Tab) 650 mg PO Q6 PRN PRN Reason: Fever >100.4 F Last Admin: 11/10/18 00:40 Dose: 650 mg Albuterol/Ipratropium (Duoneb 3 Mg/0.5 Mg (3 Ml) Ud) 3 ml INH RQ6 [facility] Last Admin: 11/13/18 19:37 Dose: 3 ml Dextrose (Dextrose 50% Inj) 0 ml IV STAT PRN; Protocol PRN Reason: Hypoglycemia Protocol Dextrose (Glutose 15) 0 gm PO ONCE PRN; Protocol PRN Reason: Hypoglycemia Protocol Enoxaparin Sodium (Lovenox) 40 mg SC DAILY [facility] Last Admin: 11/13/18 10:01 Dose: 40 mg Fluconazole (Diflucan) 100 mg PO DAILY [facility]; Protocol Folic Acid (Folic Acid) 1 mg PO DAILY [facility] Last Admin: 11/13/18 10:02 Dose: 1 mg Glucagon (Glucagen Diagnostic Kit) 0 mg IM STAT PRN; Protocol PRN Reason: Hypoglycemia Protocol Piperacillin Sod/Tazobactam Sod (Zosyn 3.375 Gm Iv Premix) 3.375 gm in 50 mls @ 100 mls/hr IVPB Q6H [facility]; Protocol Last Admin: 11/13/18 20:28 Dose: 100 mls/hr Insulin Human Regular (Novolin R) 0 unit SC ACHS [facility]; Protocol Last Admin: 11/13/18 16:42 Dose: 6 units Mirtazapine (Remeron) 15 mg PO HS [facility] Multivitamins (Hexavitamin) 1 tab PO DAILY [facility] Last Admin: 11/13/18 10:02 Dose: 1 tab Nicotine (Nicoderm Cq) 1 patch TD DAILY [facility] Last Admin: 11/13/18 10:02 Dose: 1 patch Pantoprazole Sodium (Protonix Ec Tab) 40 mg PO DAILY [facility] Last Admin: 11/13/18 10:02 Dose: 40 mg Sertraline HCl (Zoloft) 25 mg PO DAILY [facility] Sodium Chloride ([place] Baby Saline 30 Ml) 1 ml RODNEY BID [facility] Last Admin: 11/13/18 18:06 Dose: 1 spr Thiamine HCl (Vitamin B1 Tab) 100 mg PO DAILY [facility] Last Admin: 11/13/18 10:02 Dose: 100 mg - Labs Labs: 11/13/18 06:00 11/13/18 05:55 PT 15.2 SECONDS (9.7-12.2) H 11/12/18 06:13 INR 1.4 11/12/18 06:13 APTT 29 SECONDS (21-34) 11/12/18 06:13
--- NOTE | 2018-11-13 23:38 | CP.PCM.PN ---
Subjective - Date & Time of Evaluation Date of Evaluation: 11/13/18 Time of Evaluation: 08:00 - Subjective Subjective: afebrile'alert chest tube in place Objective - Vital Signs/Intake and Output Vital Signs (last 24 hours): Temp Pulse Resp BP Pulse Ox 98.1 F 76 17 106/64 99 11/13/18 20:00 11/13/18 20:00 11/13/18 20:00 11/13/18 20:00 11/13/18 16:00 Intake and Output: 11/13/18 11/14/18 18:59 06:59 Intake Total 1380 Output Total 875 Balance 505 - Medications Medications: Current Medications Acetaminophen (Tylenol 325mg Tab) 650 mg PO Q6 PRN PRN Reason: Fever >100.4 F Last Admin: 11/10/18 00:40 Dose: 650 mg Albuterol/Ipratropium (Duoneb 3 Mg/0.5 Mg (3 Ml) Ud) 3 ml INH RQ6 [facility] Last Admin: 11/13/18 19:37 Dose: 3 ml Dextrose (Dextrose 50% Inj) 0 ml IV STAT PRN; Protocol PRN Reason: Hypoglycemia Protocol Dextrose (Glutose 15) 0 gm PO ONCE PRN; Protocol PRN Reason: Hypoglycemia Protocol Enoxaparin Sodium (Lovenox) 40 mg SC DAILY [facility] Last Admin: 11/13/18 10:01 Dose: 40 mg Fluconazole (Diflucan) 100 mg PO DAILY [facility]; Protocol Folic Acid (Folic Acid) 1 mg PO DAILY [facility] Last Admin: 11/13/18 10:02 Dose: 1 mg Glucagon (Glucagen Diagnostic Kit) 0 mg IM STAT PRN; Protocol PRN Reason: Hypoglycemia Protocol Piperacillin Sod/Tazobactam Sod (Zosyn 3.375 Gm Iv Premix) 3.375 gm in 50 mls @ 100 mls/hr IVPB Q6H [facility]; Protocol Last Admin: 11/13/18 20:28 Dose: 100 mls/hr Insulin Human Regular (Novolin R) 0 unit SC ACHS [facility]; Protocol Last Admin: 11/13/18 16:42 Dose: 6 units Mirtazapine (Remeron) 15 mg PO HS [facility] Multivitamins (Hexavitamin) 1 tab PO DAILY [facility] Last Admin: 11/13/18 10:02 Dose: 1 tab Nicotine (Nicoderm Cq) 1 patch TD DAILY [facility] Last Admin: 11/13/18 10:02 Dose: 1 patch Pantoprazole Sodium (Protonix Ec Tab) 40 mg PO DAILY [facility] Last Admin: 11/13/18 10:02 Dose: 40 mg Sertraline HCl (Zoloft) 25 mg PO DAILY [facility] Sodium Chloride ([place] Baby Saline 30 Ml) 1 ml RODNEY BID [facility] Last Admin: 11/13/18 18:06 Dose: 1 spr Thiamine HCl (Vitamin B1 Tab) 100 mg PO DAILY [facility] Last Admin: 11/13/18 10:02 Dose: 100 mg - Labs Labs: 11/13/18 06:00 11/13/18 05:55 PT 15.2 SECONDS (9.7-12.2) H 11/12/18 06:13 INR 1.4 11/12/18 06:13 APTT 29 SECONDS (21-34) 11/12/18 06:13 - Constitutional Appears: Non-toxic, Chronically Ill - Eye Exam Eye Exam: Normal appearance - ENT Exam ENT Exam: Mucous Membranes Dry - Neck Exam Neck Exam: absent: Lymphadenopathy - Respiratory Exam Respiratory Exam: Decreased Breath Sounds, Rales (le) Additional comments: left effusion - Cardiovascular Exam Cardiovascular Exam: REGULAR RHYTHM - GI/Abdominal Exam GI & Abdominal Exam: Distended - Rectal Exam Rectal Exam: Deferred - Exam Exam: Scrotal Swelling - Extremities Exam Extremities Exam: absent: Full ROM Assessment and Plan (1) Esophageal mass Status: Acute (2) Abnormal CT scan, chest Status: Acute (3) Alcohol use Status: Acute (4) Anemia Status: Acute (5) Cachexia Status: Acute (6) Pleural effusion Status: Acute (7) Sepsis Status: Acute (8) Cirrhosis Status: Acute (9) Diabetes mellitus Status: Acute (10) Gram negative sepsis Status: Acute - Assessment and Plan (Free Text) Assessment: no new complaints afebrile
[2018-11-14] MEDS: Piperacill/Tazo 3.375gm in Dex 3.375 GM/50 ML BAG IVPB SCH ×4 (03:45→21:42)
[2018-11-14] MEDS: Albuterol-Ipratrop 3 mg / 0.5 (3 ml) UD INH SCH ×3 (07:44→20:12)
[2018-11-14 08:16] LABS: BASO % 0.3 % (0.0-2.0); EOS # 0.3 K/uL (0.0-0.7); EOS % 2.7 % (0.0-4.0); LYMPH # 0.9 K/uL (1.0-4.3); LYMPH % 9.1 % (20.0-40.0); MEAN CELL VOLUME 80.3 fL (80.0-94.0); MEAN CORPUSCULAR HEMOGLOBIN 26.4 pg (27.0-31.0); MEAN CORPUSCULAR HGB CONC 32.8 g/dL (33.0-37.0); MONO # 0.7 K/uL (0.0-0.8); NEUT # 7.6 K/uL (1.8-7.0); NEUT % 80.9 % (50.0-75.0); NRBC % 0.1 % (0.0-2.0); PLATELET COUNT 163 K/uL (130-400); RBC 3.43 Mil/uL (4.40-5.90); RED CELL DISTRIBUTION WIDTH 18.3 % (11.5-14.5); WHITE BLOOD COUNT 9.4 K/uL (4.8-10.8)
[2018-11-14 08:21] LABS: ALB/GLOB RATIO 0.7 (1.0-2.1); ALBUMIN 2.3 g/dL (3.5-5.0); ALT/SGPT < 6 U/L (21-72); AST/SGOT 18 U/L (17-59); BLOOD UREA NITROGEN 3 mg/dL (9-20); CALCIUM 9.5 mg/dl (8.6-10.4); GFR NON-AFRICAN AMERICAN > 60
[2018-11-14] MEDS: (Novolin R) Insulin Human Regular 100 units/ml vial SC SCH ×4 (08:40→22:00)
--- NOTE | 2018-11-14 08:55 | CP.PCM.PN ---
Objective - Vital Signs/Intake and Output Vital Signs (last 24 hours): Temp Pulse Resp BP Pulse Ox 98.2 F 68 20 133/85 97 11/14/18 07:10 11/14/18 07:10 11/14/18 07:10 11/14/18 07:10 11/14/18 07:10 Intake and Output: 11/14/18 11/14/18 06:59 18:59 Output Total 55 Balance -55 - Medications Medications: Current Medications Acetaminophen (Tylenol 325mg Tab) 650 mg PO Q6 PRN PRN Reason: Fever >100.4 F Last Admin: 11/10/18 00:40 Dose: 650 mg Albuterol/Ipratropium (Duoneb 3 Mg/0.5 Mg (3 Ml) Ud) 3 ml INH RQ6 [facility] Last Admin: 11/14/18 07:44 Dose: 3 ml Dextrose (Dextrose 50% Inj) 0 ml IV STAT PRN; Protocol PRN Reason: Hypoglycemia Protocol Dextrose (Glutose 15) 0 gm PO ONCE PRN; Protocol PRN Reason: Hypoglycemia Protocol Enoxaparin Sodium (Lovenox) 40 mg SC DAILY [facility] Last Admin: 11/13/18 10:01 Dose: 40 mg Fluconazole (Diflucan) 100 mg PO DAILY [facility]; Protocol Folic Acid (Folic Acid) 1 mg PO DAILY [facility] Last Admin: 11/13/18 10:02 Dose: 1 mg Glucagon (Glucagen Diagnostic Kit) 0 mg IM STAT PRN; Protocol PRN Reason: Hypoglycemia Protocol Piperacillin Sod/Tazobactam Sod (Zosyn 3.375 Gm Iv Premix) 3.375 gm in 50 mls @ 100 mls/hr IVPB Q6H [facility]; Protocol Last Admin: 11/14/18 03:45 Dose: 100 mls/hr Insulin Human Regular (Novolin R) 0 unit SC ACHS [facility]; Protocol Last Admin: 11/13/18 16:42 Dose: 6 units Mirtazapine (Remeron) 15 mg PO HS [facility] Last Admin: 11/14/18 00:20 Dose: 15 mg Multivitamins (Hexavitamin) 1 tab PO DAILY [facility] Last Admin: 11/13/18 10:02 Dose: 1 tab Nicotine (Nicoderm Cq) 1 patch TD DAILY [facility] Last Admin: 11/13/18 10:02 Dose: 1 patch Pantoprazole Sodium (Protonix Ec Tab) 40 mg PO DAILY [facility] Last Admin: 11/13/18 10:02 Dose: 40 mg Sertraline HCl (Zoloft) 25 mg PO DAILY [facility] Sodium Chloride ([place] Baby Saline 30 Ml) 1 ml RODNEY BID [facility] Last Admin: 11/13/18 18:06 Dose: 1 spr Thiamine HCl (Vitamin B1 Tab) 100 mg PO DAILY [facility] Last Admin: 11/13/18 10:02 Dose: 100 mg - Labs Labs: 11/14/18 07:50 11/14/18 07:50 PT 15.2 SECONDS (9.7-12.2) H 11/12/18 06:13 INR 1.4 11/12/18 06:13 APTT 29 SECONDS (21-34) 11/12/18 06:13
[2018-11-14 09:39] LABS: ANISOCYTOSIS SLIGHT; BANDS 6 % (0-2); EOSINOPHIL 2 % (0-4); HYPOCHROMIC SLIGHT; LYMPHOCYTE 8 % (20-40); MONOCYTE 4 % (0-10); NEUTROPHIL 80 % (50-75); PLATELET ESTIMATE NORMAL (NORMAL); POIKILOCYTOSIS SLIGHT; TOTAL CELLS COUNTED 100
[2018-11-14 09:40] LABS: TARGET CELLS SLIGHT; TEARDROP CELLS SLIGHT
[2018-11-14] MEDS: Enoxaparin 40 mg Syringe SC SCH (09:46)
[2018-11-14] MEDS: Sodium Chloride Nasal 0.65% Soln (30ml) NAS SCH ×2 (09:46→17:44)
[2018-11-14] MEDS: Multiple Vitamins Tab PO SCH (09:46)
[2018-11-14] MEDS: Pantoprazole 40 mg EC Tab PO SCH (09:46)
--- NOTE | 2018-11-14 12:20 | CP.PCM.PN ---
Subjective - Date & Time of Evaluation Date of Evaluation: 11/14/18 Time of Evaluation: 12:18 - Subjective Subjective: Progress Note for Dr. Patterson Patient seen and examined at bedside. He is resting comfortably, has no complaints at this time. Pigtail catheter output 330ml x24 hours. Objective - Vital Signs/Intake and Output Vital Signs (last 24 hours): Temp Pulse Resp BP Pulse Ox 98.2 F 68 20 133/85 97 11/14/18 07:10 11/14/18 07:10 11/14/18 07:10 11/14/18 07:10 11/14/18 07:10 Intake and Output: 11/14/18 11/14/18 06:59 18:59 Output Total 55 Balance -55 - Medications Medications: Current Medications Acetaminophen (Tylenol 325mg Tab) 650 mg PO Q6 PRN PRN Reason: Fever >100.4 F Last Admin: 11/10/18 00:40 Dose: 650 mg Albuterol/Ipratropium (Duoneb 3 Mg/0.5 Mg (3 Ml) Ud) 3 ml INH RQ6 [facility] Last Admin: 11/14/18 07:44 Dose: 3 ml Dextrose (Dextrose 50% Inj) 0 ml IV STAT PRN; Protocol PRN Reason: Hypoglycemia Protocol Dextrose (Glutose 15) 0 gm PO ONCE PRN; Protocol PRN Reason: Hypoglycemia Protocol Enoxaparin Sodium (Lovenox) 40 mg SC DAILY [facility] Last Admin: 11/14/18 09:46 Dose: 40 mg Fluconazole (Diflucan) 100 mg PO DAILY [facility]; Protocol Last Admin: 11/14/18 09:46 Dose: 100 mg Folic Acid (Folic Acid) 1 mg PO DAILY [facility] Last Admin: 11/14/18 09:46 Dose: 1 mg Glucagon (Glucagen Diagnostic Kit) 0 mg IM STAT PRN; Protocol PRN Reason: Hypoglycemia Protocol Piperacillin Sod/Tazobactam Sod (Zosyn 3.375 Gm Iv Premix) 3.375 gm in 50 mls @ 100 mls/hr IVPB Q6H [facility]; Protocol Last Admin: 11/14/18 10:24 Dose: 100 mls/hr Insulin Human Regular (Novolin R) 0 unit SC ACHS [facility]; Protocol Last Admin: 11/14/18 08:40 Dose: 3 units Mirtazapine (Remeron) 15 mg PO HS [facility] Last Admin: 11/14/18 00:20 Dose: 15 mg Multivitamins (Hexavitamin) 1 tab PO DAILY [facility] Last Admin: 11/14/18 09:46 Dose: 1 tab Nicotine (Nicoderm Cq) 1 patch TD DAILY [facility] Last Admin: 11/14/18 09:46 Dose: 1 patch Pantoprazole Sodium (Protonix Ec Tab) 40 mg PO DAILY [facility] Last Admin: 11/14/18 09:46 Dose: 40 mg Sertraline HCl (Zoloft) 25 mg PO DAILY [facility] Last Admin: 11/14/18 09:46 Dose: 25 mg Sodium Chloride ([place] Baby Saline 30 Ml) 1 ml RODNEY BID [facility] Last Admin: 11/14/18 09:46 Dose: 1 spr Thiamine HCl (Vitamin B1 Tab) 100 mg PO DAILY [facility] Last Admin: 11/14/18 09:46 Dose: 100 mg - Labs Labs: 11/14/18 07:50 11/14/18 07:50 PT 15.2 SECONDS (9.7-12.2) H 11/12/18 06:13 INR 1.4 11/12/18 06:13 APTT 29 SECONDS (21-34) 11/12/18 06:13 - Constitutional Appears: Well, No Acute Distress - Head Exam Head Exam: ATRAUMATIC, NORMOCEPHALIC - Eye Exam Eye Exam: EOMI - ENT Exam ENT Exam: Mucous Membranes Moist - Respiratory Exam Respiratory Exam: NORMAL BREATHING PATTERN Additional comments: pigtail catheter in place on left - Cardiovascular Exam Cardiovascular Exam: REGULAR RHYTHM, +S1, +S2 - GI/Abdominal Exam GI & Abdominal Exam: Soft. 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
--- NOTE | 2018-11-14 13:33 | RAD ---
Date of service: 11/14/2018 HISTORY: check piccline placement COMPARISON: 11/12/2018 TECHNIQUE: 1 view obtained. FINDINGS: LUNGS: No active pulmonary disease. PLEURA: Probable small left pleural effusion, unchanged. No right pleural effusion. No pneumothorax. CARDIOVASCULAR: No aortic atherosclerotic calcification present. Normal cardiac size. No congestive change. New right PICC catheter terminates in the region of superior vena cava. OSSEOUS STRUCTURES: No significant abnormalities. VISUALIZED UPPER ABDOMEN: Normal. OTHER FINDINGS: None. IMPRESSION: Small left pleural effusion. New right PICC catheter terminating in the region of the superior vena cava.
--- NOTE | 2018-11-14 17:30 | CP.PCM.PN ---
Subjective - Date & Time of Evaluation Date of Evaluation: 11/14/18 Time of Evaluation: 07:00 - Subjective Subjective: afebrile IV rx renewed weak afebrile Chest tube in place Objective - Vital Signs/Intake and Output Vital Signs (last 24 hours): Temp Pulse Resp BP Pulse Ox 98.2 F 68 20 133/85 97 11/14/18 07:10 11/14/18 07:10 11/14/18 07:10 11/14/18 07:10 11/14/18 07:10 Intake and Output: 11/14/18 11/14/18 06:59 18:59 Output Total 55 80 Balance -55 -80 - Medications Medications: Current Medications Acetaminophen (Tylenol 325mg Tab) 650 mg PO Q6 PRN PRN Reason: Fever >100.4 F Last Admin: 11/10/18 00:40 Dose: 650 mg Albuterol/Ipratropium (Duoneb 3 Mg/0.5 Mg (3 Ml) Ud) 3 ml INH RQ6 [facility] Last Admin: 11/14/18 13:10 Dose: 3 ml Dextrose (Dextrose 50% Inj) 0 ml IV STAT PRN; Protocol PRN Reason: Hypoglycemia Protocol Dextrose (Glutose 15) 0 gm PO ONCE PRN; Protocol PRN Reason: Hypoglycemia Protocol Enoxaparin Sodium (Lovenox) 40 mg SC DAILY [facility] Last Admin: 11/14/18 09:46 Dose: 40 mg Fluconazole (Diflucan) 100 mg PO DAILY [facility]; Protocol Last Admin: 11/14/18 09:46 Dose: 100 mg Folic Acid (Folic Acid) 1 mg PO DAILY [facility] Last Admin: 11/14/18 09:46 Dose: 1 mg Glucagon (Glucagen Diagnostic Kit) 0 mg IM STAT PRN; Protocol PRN Reason: Hypoglycemia Protocol Piperacillin Sod/Tazobactam Sod (Zosyn 3.375 Gm Iv Premix) 3.375 gm in 50 mls @ 100 mls/hr IVPB Q6H [facility]; Protocol Last Admin: 11/14/18 13:39 Dose: 100 mls/hr Insulin Human Regular (Novolin R) 0 unit SC ACHS [facility]; Protocol Last Admin: 11/14/18 13:39 Dose: 3 units Mirtazapine (Remeron) 15 mg PO HS [facility] Last Admin: 11/14/18 00:20 Dose: 15 mg Multivitamins (Hexavitamin) 1 tab PO DAILY [facility] Last Admin: 11/14/18 09:46 Dose: 1 tab Nicotine (Nicoderm Cq) 1 patch TD DAILY [facility] Last Admin: 11/14/18 09:46 Dose: 1 patch Pantoprazole Sodium (Protonix Ec Tab) 40 mg PO DAILY [facility] Last Admin: 11/14/18 09:46 Dose: 40 mg Sertraline HCl (Zoloft) 25 mg PO DAILY [facility] Last Admin: 11/14/18 09:46 Dose: 25 mg Sodium Chloride ([place] Baby Saline 30 Ml) 1 ml RODNEY BID [facility] Last Admin: 11/14/18 09:46 Dose: 1 spr Thiamine HCl (Vitamin B1 Tab) 100 mg PO DAILY [facility] Last Admin: 11/14/18 09:46 Dose: 100 mg - Labs Labs: 11/14/18 07:50 11/14/18 07:50 PT 15.2 SECONDS (9.7-12.2) H 11/12/18 06:13 INR 1.4 11/12/18 06:13 APTT 29 SECONDS (21-34) 11/12/18 06:13 - Constitutional Appears: Non-toxic, Chronically Ill - Head Exam Head Exam: NORMOCEPHALIC - Eye Exam Eye Exam: absent: Scleral icterus - ENT Exam ENT Exam: Mucous Membranes Dry - Neck Exam Neck Exam: absent: Lymphadenopathy - Respiratory Exam Respiratory Exam: Decreased Breath Sounds, Prolonged Expiratory Phase - Cardiovascular Exam Cardiovascular Exam: REGULAR RHYTHM - GI/Abdominal Exam GI & Abdominal Exam: Distended - Rectal Exam Rectal Exam: Deferred - Exam Exam: NORMAL INSPECTION - Extremities Exam Extremities Exam: absent: Pedal Edema - Back Exam Back Exam: absent: CVA tenderness (L), CVA tenderness (R) - Neurological Exam Neurological Exam: Alert, Awake, CN II-XII Intact - Psychiatric Exam Psychiatric exam: Depressed - Skin Skin Exam: Dry Assessment and Plan (1) Esophageal mass Status: Acute (2) Abnormal CT scan, chest Status: Acute (3) Alcohol use Status: Acute (4) Anemia Status: Acute (5) Cachexia Status: Acute (6) Pleural effusion Status: Acute (7) Sepsis Status: Acute (8) Cirrhosis Status: Acute (9) Diabetes mellitus Status: Acute (10) Gram negative sepsis Status: Acute - Assessment and Plan (Free Text) Assessment: may need jejunostomy tube staging in progress cont IV antibiotics foir empyema
--- NOTE | 2018-11-14 18:41 | CP.PCM.PN ---
Subjective - Date & Time of Evaluation Date of Evaluation: 11/14/18 Time of Evaluation: 13:00 - Subjective Subjective: Hospitalist Progress Note Patient was seen and examined at 1:00 PM 11/14/18 Patient underwent EGD on Monday11/12/18 and biopsy was taken of mass extending from GE into the Stomach. Preliminary pathology report as per my conversation with GI Dr. Aaron 11/13/18 indicated Squamous Cell CA: Official Report is still pending Palliative Care Nurse Rosas and Heme/Onc Dr. Melody Paredes are on board. EGD biopsy also indicated Mallory: Diflucan 100 mg PO 1x/day started by GI 11/14/18 and this should be continued for 21 days through 12/05/18. At this time I do NOT believe that patient is a good surgical candidate for surgery considering the Assessment and Plan #1 below. Heme/Oncologist Dr. Melody Paredes recommendation: outpatient PET Scan for staging and if NO mets then Chemo+Radiation and Surgical evaluation Patient will also need a source of nutrition considering that he is currently on clear liquids, which he continues to tolerate (broth, Ensure Clear, jello were consumed today without any issues). Dr. Aaron recommends possible PEG Tube Placement. I spoke with patient concerning the preliminary pathology report and the need for PEG Tube. He stated that he is still thinking about it. has tentatively made patient NPO after midnight for possible PEG 11/15/18. Patient's primary contact and decision maker should he not be able to make decisions on his own is Sister Korin (Home# [phone], ). Patient had Right PICC Line placed 11/14/18 as he will need tank terminal gauger antibiotic for the Bacteremia, UTI, and Pleural Fluid/Empyema (see Assessment and Plan #1 below). VATS procedure was placed on hold by Surgery Team for now. CT Chest 11/12/18: moderate left sided hydropneumothorax, moderate right pleural effusion, bilateral lower lobe consolidations, mediastinal lymphadenopathy, moderate hiatal hernia with gastric wall thickening Chest X Ray 11/14/18: shows significant improvement in the left pleural effusion and is now characterized as small Pigtail Catheter Left Chest was taken off suction and placed on water seal 11/14/18 and Surgery Team has ordered daily Chest X Rays Upon FULL ROS: NO chest pain at the left pigtail catheter insertion site only if he lays on this side NO SOB/Cough/Wheezing NO abdominal pain NO n/v/d Has still NOT had a bowel movement for the past 1 1/2 weeks but stated that he was not eating much but continues to pass travis and not complain of any abdominal pain NO other complaints upon FULL ROS Exam: General: Resting comfortably and in NO distress HEENT: NCA, EOMI, PERRLA, NO pharyngeal erythema/exudate, NO lymphadenopathy Cardio: NS1 and NS2, NO M/R/G Resp: Decreased breath sounds on the left lower lung dena GI: BSx4, Soft, ND, NO HSM, NO guarding/rebound tenderness Ext: Pulses are strong and equal, Capillary Refill is 2 seconds, 1+ Pitting Edema bilateral lower legs from ankles to midtibia Neuro: CN II through XII are grossly intact Assessment and Plan (1) Sepsis Urinary tract infection Bacteremia Empyema Assessment & Plan: * Code sepsis 11/08/18 * Infectious Disease (Dr. Bojorquez) on board-->help appreciated * Criteria: leukocytosis, hypotension, bandemia, hypothermia, source of infections: empyema, uti, bacteremia * Lactic acid: 3.5-->1.7 * elevated procalcitonin: 1.49-->0.83 on 11/11/18 * Blood culture (11/08/18): Klebsiella pneumoniae * Sensitive to Zosyn with LUPE of less than 4 * Blood culture (11/11/18): Negative to date * Urine culture (11/08/18): Enterococcus Faecalis * Restarted Vancomycin 1 gram IV Q12H 11/11/18 in light of culture results * MRSA (11/08/18): not detected * Pleural fluid (11/09/18): no acid fast bacilli * Pleural fluid (11/09/18): Streptococcus anginosus which is sensitive to Vancomycin which the patient was restarted on 11/11/18 * Chest xray (11/08/18): layering left pleural effusion and/or consolidation * Chest xray (11/09/18): slight increase in left perihilar/basilar opacity. small left pleural effusion, grossly unchanged * Iv abx: * Zosyn 3.375 g IV Q6H (active since 11/08/18) * Vancomycin 1 gram IV Q12 (11/08/18 through 11/11/18): spoke with ID Dr. Bojorquez 11/12/18: Zosyn will cover the Klebsiella, Streptococcus and the Enterococcus * CT Chest 11/12/18: moderate left sided hydropneumothorax, moderate right pleural effusion, bilateral lower lobe consolidations, mediastinal lymphadenopathy, moderate hiatal hernia with gastric wall thickening Status: Acute (2) Empyema; Loculated Left Pleural effusion Assessment & Plan: * Thoracic Surgery (Dr. Bro) on board-->help appreciated * VATS procedure cancelled on 11/12/18 * Repeat CT Chest ordered 11/12/18 * Chest xray (11.08.18): layering left pleural effusion and/or consolidation * Chest xray (11/09/18): slight increase in left perihilar/basilar opacity. small left pleural effusion, grossly unchanged * S/P IR thoracentesis 11/09/18; placement of pigtail catheter * Pleural fluid (11/09/18): Streptococcus anginosus which is sensitive to Vancomycin which the patient was restarted on 11/11/18 * Pleural fluid (11/09/18): moderate PMNs, moderate gram positive cocci * Echocardiogram (08/20/18): left ventricular function is normal, left ventricular ejection fraction is within the the normal range about 55%, mild mitral valve regurgitation noted Status: Acute (3) Anemia Assessment & Plan: * Thoracic Surgery (Dr. Bro) on board-->help appreciated * GI (Dr. Aaron) on board-->help appreciated * Likely secondary to the suspicious mass found on EGD performed on 11/12/18? * On admission: hgb 10-->5 * blood transfusion consent obtained by resident 11/08/18 * given 3 units of PRBC overnight night and 1 FFP unit * rectal negative * ferritin low * iron low: will not repleat at this time considering multiple infections as documented in Assessment/Plan #1 * tibc: 148 low * transferrin low * Stable 8.6 since blood transfusion 11/08/18 * Reticulocyte count: 2.2--> reticulocyte index: 0.12-->hypoproliferation <2 * Folate low * B12: 967 (low) * Occult blood: negative * CT Chest/Abdomen/pelvis (11/08/18): ascites, anasarca, interval loculated left pleural effusion, appearance of GE junction is indeterminate here a hiatal hernia vs mass Status: Acute (4) Cirrhosis Assessment & Plan: * GI (Dr. Aaron) on board-->help appreciated * CT Chest/Abdomen/pelvis IV contrast (11/08/18): prior amount of ascites and anasarca has improved. further findings per report * Abdominal US (08/18/18): limited study. echogenic liver may be seen in hepatic parenchymal disease or fatty infiltrate. nodular hepatic contour. cholelith iasis. gallbladder wall thickening/pericholecystic edema. negative sonographic Cespedes's small abdominal ascites * Hepatitis Panel negative * Blood alcohol <10 * Patient notes he has drinking 3 shots of vodka X30 years. Status: Acute (5) Diabetes mellitus 2 Assessment & Plan: * Hgba1c: 8.1 * Patient is off metformin given elevated lactic on admission * RISS ACHS * Accuchecks QAC and HS Status: Chronic (6) GE junction Mass Assessment & Plan: * Thoracic Surgery (Dr. Bro) on board-->help appreciated * GI (Dr. Aaron) on board-->help appreciated * CT Chest/Abdomen/pelvis (11/08/18): ascites, anasarca, interval loculated left pleural effusion, appearance of GE junction is indeterminate here a hiatal hernia vs mass * Patient is S/P Upper EGD on 11/12/18 and suspicious mass noted from the lower Esophagus into Gastric Fundus. Will follow up pathology and once results k nown, will get Palliative Care and Heme/Onc on board Status: Acute (7) Alcohol use Assessment & Plan: * Ciwa protocol * Aspiration precautions * Seizure precautions * Folic acid 1mg PO Daily * MVI tab PO daily * Thiamine 100mg PO daily * 3 shots of vodka X 30 years history * Monitor for withdrawal; patient is not currently in withdrawal * Abdominal US (08/18/18): limited study. Echogenic liver may be seen in hepatic parenchymal disease or fatty infiltrate. Nodular hepatic contour. cholelithiasis. Gallbladder wall thickening/pericholecystic edema. Negative sonographic Cespedes's small abdominal ascites Status: Acute (8) Tobacco use Assessment & Plan: * 1 ppd X30 years * Nicotine patch daily * Advised smoking cessation Status: Acute (9) Cachexia Assessment & Plan: * Related to alcohol, smoking, malnutrition, AND likely related to suspicious GE mass? Status: Acute (10) Ulcer of sacral region, stage 1 Assessment & Plan: * Wound Care Nurse Joseph Amaya is on board: Charlene Price and continue to turn patient every 2 hours Status: Acute (11) Prophylactic measure Status: Acute * PT/OT eval * Protonix 40mg IV q12H * Full code * Lovenox 40mg subq daily for DVT ppx * Bilateral LE Venous Doppler 11/12/18: NO DVTs Disposition: Repeat Blood Culture 11/11/18: negative to date Repeat Urine Culture 11/14/18: results pending Pathology report EGD biopsies: preliminary findings indicate Squamous Cell CA. F/U official report Await patient decision concerning PEG Tube Placement Nestor Sebastian D.O. Objective - Vital Signs/Intake and Output Vital Signs (last 24 hours): Temp Pulse Resp BP Pulse Ox 98.3 F 79 20 95/57 L 97 11/14/18 15:37 11/14/18 15:37 11/14/18 15:37 11/14/18 15:37 11/14/18 15:37 Intake and Output: 11/14/18 11/14/18 06:59 18:59 Output Total 55 380 Balance -55 -380 - Medications Medications: Current Medications Acetaminophen (Tylenol 325mg Tab) 650 mg PO Q6 PRN PRN Reason: Fever >100.4 F Last Admin: 11/10/18 00:40 Dose: 650 mg Albuterol/Ipratropium (Duoneb 3 Mg/0.5 Mg (3 Ml) Ud) 3 ml INH RQ6 [facility] Last Admin: 11/14/18 13:10 Dose: 3 ml Dextrose (Dextrose 50% Inj) 0 ml IV STAT PRN; Protocol PRN Reason: Hypoglycemia Protocol Dextrose (Glutose 15) 0 gm PO ONCE PRN; Protocol PRN Reason: Hypoglycemia Protocol Enoxaparin Sodium (Lovenox) 40 mg SC DAILY [facility] Last Admin: 11/14/18 09:46 Dose: 40 mg Fluconazole (Diflucan) 100 mg PO DAILY [facility]; Protocol Last Admin: 11/14/18 09:46 Dose: 100 mg Folic Acid (Folic Acid) 1 mg PO DAILY [facility] Last Admin: 11/14/18 09:46 Dose: 1 mg Glucagon (Glucagen Diagnostic Kit) 0 mg IM STAT PRN; Protocol PRN Reason: Hypoglycemia Protocol Piperacillin Sod/Tazobactam Sod (Zosyn 3.375 Gm Iv Premix) 3.375 gm in 50 mls @ 100 mls/hr IVPB Q6H [facility]; Protocol Last Admin: 11/14/18 13:39 Dose: 100 mls/hr Insulin Human Regular (Novolin R) 0 unit SC ACHS [facility]; Protocol Last Admin: 11/14/18 17:44 Dose: 2 units Mirtazapine (Remeron) 15 mg PO HS [facility] Last Admin: 11/14/18 00:20 Dose: 15 mg Multivitamins (Hexavitamin) 1 tab PO DAILY [facility] Last Admin: 11/14/18 09:46 Dose: 1 tab Nicotine (Nicoderm Cq) 1 patch TD DAILY [facility] Last Admin: 11/14/18 09:46 Dose: 1 patch Pantoprazole Sodium (Protonix Ec Tab) 40 mg PO DAILY [facility] Last Admin: 11/14/18 09:46 Dose: 40 mg Sertraline HCl (Zoloft) 25 mg PO DAILY [facility] Last Admin: 11/14/18 09:46 Dose: 25 mg Sodium Chloride ([place] Baby Saline 30 Ml) 1 ml RODNEY BID [facility] Last Admin: 11/14/18 17:44 Dose: 1 spr Thiamine HCl (Vitamin B1 Tab) 100 mg PO DAILY [facility] Last Admin: 11/14/18 09:46 Dose: 100 mg - Labs Labs: 11/14/18 07:50 11/14/18 07:50 PT 15.2 SECONDS (9.7-12.2) H 11/12/18 06:13 INR 1.4 11/12/18 06:13 APTT 29 SECONDS (21-34) 11/12/18 06:13
--- NOTE | 2018-11-14 22:44 | CP.PCM.PN ---
Subjective - Date & Time of Evaluation Date of Evaluation: 11/14/18 Time of Evaluation: 20:00 - Subjective Subjective: No complaints. Objective - Vital Signs/Intake and Output Vital Signs (last 24 hours): Temp Pulse Resp BP Pulse Ox 98.3 F 79 20 95/57 L 97 11/14/18 15:37 11/14/18 15:37 11/14/18 15:37 11/14/18 15:37 11/14/18 15:37 Intake and Output: 11/14/18 11/15/18 18:59 06:59 Output Total 380 400 Balance -380 -400 - Medications Medications: Current Medications Acetaminophen (Tylenol 325mg Tab) 650 mg PO Q6 PRN PRN Reason: Fever >100.4 F Last Admin: 11/10/18 00:40 Dose: 650 mg Albuterol/Ipratropium (Duoneb 3 Mg/0.5 Mg (3 Ml) Ud) 3 ml INH RQ6 [facility] Last Admin: 11/14/18 20:12 Dose: 3 ml Dextrose (Dextrose 50% Inj) 0 ml IV STAT PRN; Protocol PRN Reason: Hypoglycemia Protocol Dextrose (Glutose 15) 0 gm PO ONCE PRN; Protocol PRN Reason: Hypoglycemia Protocol Enoxaparin Sodium (Lovenox) 40 mg SC DAILY [facility] Last Admin: 11/14/18 09:46 Dose: 40 mg Fluconazole (Diflucan) 100 mg PO DAILY [facility]; Protocol Last Admin: 11/14/18 09:46 Dose: 100 mg Folic Acid (Folic Acid) 1 mg PO DAILY [facility] Last Admin: 11/14/18 09:46 Dose: 1 mg Glucagon (Glucagen Diagnostic Kit) 0 mg IM STAT PRN; Protocol PRN Reason: Hypoglycemia Protocol Piperacillin Sod/Tazobactam Sod (Zosyn 3.375 Gm Iv Premix) 3.375 gm in 50 mls @ 100 mls/hr IVPB Q6H [facility]; Protocol Last Admin: 11/14/18 21:42 Dose: 100 mls/hr Insulin Human Regular (Novolin R) 0 unit SC ACHS [facility]; Protocol Last Admin: 11/14/18 17:44 Dose: 2 units Mirtazapine (Remeron) 15 mg PO HS [facility] Last Admin: 11/14/18 21:47 Dose: 15 mg Multivitamins (Hexavitamin) 1 tab PO DAILY [facility] Last Admin: 11/14/18 09:46 Dose: 1 tab Nicotine (Nicoderm Cq) 1 patch TD DAILY [facility] Last Admin: 11/14/18 09:46 Dose: 1 patch Pantoprazole Sodium (Protonix Ec Tab) 40 mg PO DAILY [facility] Last Admin: 11/14/18 09:46 Dose: 40 mg Sertraline HCl (Zoloft) 25 mg PO DAILY [facility] Last Admin: 11/14/18 09:46 Dose: 25 mg Sodium Chloride ([place] Baby Saline 30 Ml) 1 ml RODNEY BID [facility] Last Admin: 11/14/18 17:44 Dose: 1 spr Thiamine HCl (Vitamin B1 Tab) 100 mg PO DAILY [facility] Last Admin: 11/14/18 09:46 Dose: 100 mg - Labs Labs: 11/14/18 07:50 11/14/18 07:50 PT 15.2 SECONDS (9.7-12.2) H 11/12/18 06:13 INR 1.4 11/12/18 06:13 APTT 29 SECONDS (21-34) 11/12/18 06:13 - Head Exam Head Exam: ATRAUMATIC - Eye Exam Eye Exam: Normal appearance - ENT Exam ENT Exam: Mucous Membranes Dry - Respiratory Exam Respiratory Exam: NORMAL BREATHING PATTERN - Cardiovascular Exam Cardiovascular Exam: +S1, +S2 - GI/Abdominal Exam GI & Abdominal Exam: Normal Bowel Sounds Assessment and Plan (1) Anemia Assessment & Plan: iron deficiency anemia and chronic disease iron supplementation when infection cleared Status: Acute (2) Coagulopathy Assessment & Plan: likely nutritional Status: Acute (3) Esophageal mass Assessment & Plan: prelim squamous cell carcinoma outpatient PET CT for staging if no distant mets; would benefit from chemo+radiation and evaluation for surgical candidacy recommend feeding tube; pt wants to think about it Status: Acute
[2018-11-15] MEDS: Albuterol-Ipratrop 3 mg / 0.5 (3 ml) UD INH SCH ×5 (01:13→19:09)
[2018-11-15] MEDS: Piperacill/Tazo 3.375gm in Dex 3.375 GM/50 ML BAG IVPB SCH ×4 (02:39→21:24)
[2018-11-15] MEDS: (Novolin R) Insulin Human Regular 100 units/ml vial SC SCH ×5 (08:02→21:26)
--- NOTE | 2018-11-15 08:29 | CP.PCM.PN ---
Subjective - Date & Time of Evaluation Date of Evaluation: 11/15/18 Time of Evaluation: 08:04 - Subjective Subjective: Progress Note for Dr. Patterson Patient seen and examined at bedside. He has no complaints at this time. He denies feeling short of breath at this time. Pigtail catheter was taken off suction, placed on water seal yesterday. 24 hour output 110ml. Objective - Vital Signs/Intake and Output Vital Signs (last 24 hours): Temp Pulse Resp BP Pulse Ox 98.1 F 79 20 133/86 97 11/15/18 07:10 11/15/18 07:10 11/15/18 07:10 11/15/18 07:10 11/15/18 07:10 Intake and Output: 11/15/18 11/15/18 06:59 18:59 Output Total 1030 Balance -1030 - Medications Medications: Current Medications Acetaminophen (Tylenol 325mg Tab) 650 mg PO Q6 PRN PRN Reason: Fever >100.4 F Last Admin: 11/10/18 00:40 Dose: 650 mg Albuterol/Ipratropium (Duoneb 3 Mg/0.5 Mg (3 Ml) Ud) 3 ml INH RQ6 [facility] Last Admin: 11/15/18 01:13 Dose: Not Given Dextrose (Dextrose 50% Inj) 0 ml IV STAT PRN; Protocol PRN Reason: Hypoglycemia Protocol Dextrose (Glutose 15) 0 gm PO ONCE PRN; Protocol PRN Reason: Hypoglycemia Protocol Enoxaparin Sodium (Lovenox) 40 mg SC DAILY [facility] Last Admin: 11/14/18 09:46 Dose: 40 mg Fluconazole (Diflucan) 100 mg PO DAILY [facility]; Protocol Last Admin: 11/14/18 09:46 Dose: 100 mg Folic Acid (Folic Acid) 1 mg PO DAILY [facility] Last Admin: 11/14/18 09:46 Dose: 1 mg Glucagon (Glucagen Diagnostic Kit) 0 mg IM STAT PRN; Protocol PRN Reason: Hypoglycemia Protocol Piperacillin Sod/Tazobactam Sod (Zosyn 3.375 Gm Iv Premix) 3.375 gm in 50 mls @ 100 mls/hr IVPB Q6H [facility]; Protocol Last Admin: 11/15/18 02:39 Dose: 100 mls/hr Insulin Human Regular (Novolin R) 0 unit SC ACHS [facility]; Protocol Last Admin: 11/15/18 08:02 Dose: Not Given Lactobacillus Acidophilus (Lactobacillus) 1 cap PO Q12H [facility] Mirtazapine (Remeron) 15 mg PO HS [facility] Last Admin: 11/14/18 21:47 Dose: 15 mg Multivitamins (Hexavitamin) 1 tab PO DAILY [facility] Last Admin: 11/14/18 09:46 Dose: 1 tab Nicotine (Nicoderm Cq) 1 patch TD DAILY [facility] Last Admin: 11/14/18 09:46 Dose: 1 patch Pantoprazole Sodium (Protonix Ec Tab) 40 mg PO DAILY [facility] Last Admin: 11/14/18 09:46 Dose: 40 mg Sertraline HCl (Zoloft) 25 mg PO DAILY [facility] Last Admin: 11/14/18 09:46 Dose: 25 mg Sodium Chloride ([place] Baby Saline 30 Ml) 1 ml ORDNEY BID [facility] Last Admin: 11/14/18 17:44 Dose: 1 spr Thiamine HCl (Vitamin B1 Tab) 100 mg PO DAILY [facility] Last Admin: 11/14/18 09:46 Dose: 100 mg - Labs Labs: 11/14/18 07:50 11/14/18 07:50 PT 15.2 SECONDS (9.7-12.2) H 11/12/18 06:13 INR 1.4 11/12/18 06:13 APTT 29 SECONDS (21-34) 11/12/18 06:13 - Constitutional Appears: No Acute Distress, Chronically Ill - Head Exam Head Exam: ATRAUMATIC, NORMOCEPHALIC - Eye Exam Eye Exam: EOMI - ENT Exam ENT Exam: Mucous Membranes Moist - Neck Exam Neck Exam: Full ROM - Respiratory Exam Respiratory Exam: NORMAL BREATHING PATTERN Additional comments: Pigtail catheter in place - Cardiovascular Exam Cardiovascular Exam: REGULAR RHYTHM, +S1, +S2 - GI/Abdominal Exam GI & Abdominal Exam: Soft - Extremities Exam Extremities Exam: absent: Calf Tenderness, Pedal Edema - Neurological Exam Neurological Exam: Alert, Awake, Oriented x3 Assessment and Plan - Assessment and Plan (Free Text) Assessment: 58 year old male with Empyema s/p thoracocentesis and pigtail placement on 11/09 Plan: -Endoscopy: large fungating mass at mid esophagus (36cm from incisors) with mass infiltrating into cardia Await path report -EUS for staging -Tube taken off suction and placed on waterseal yesterday, 110cc output -Continue to monitor pigtail output -Continue Pain management -CXR this AM: improvement of pleural effusion. Carisa Mayes, PGY1
--- NOTE | 2018-11-15 09:21 | RAD ---
Date of service: 11/15/2018 HISTORY: pigtail, empyema COMPARISON: Portable chest 11/14/2018. TECHNIQUE: 1 view obtained. FINDINGS: Right PICC unchanged in position. LUNGS: Fibrotic changes are reiterated at the left base with limited left-sided volume loss. No acute infiltrate bilaterally. PLEURA: No significant pleural effusion identified, no pneumothorax apparent. CARDIOVASCULAR: No aortic atherosclerotic calcification present. Normal cardiac size. No pulmonary vascular congestion. OSSEOUS STRUCTURES: No significant abnormalities. VISUALIZED UPPER ABDOMEN: Normal. OTHER FINDINGS: None. IMPRESSION: No interval acute cardiopulmonary disease appreciated. Fibrotic changes unchanged left base with limited volume loss again evident. Right PICC unchanged.
[2018-11-15] MEDS ORDERED: Lactobacillus Acidophilus 500 MU Cap PO SCH (10:00)
[2018-11-15] MEDS: Multiple Vitamins Tab PO SCH (10:49)
[2018-11-15] MEDS: Sodium Chloride Nasal 0.65% Soln (30ml) NAS SCH (10:49)
[2018-11-15] MEDS: Enoxaparin 40 mg Syringe SC SCH (10:49)
[2018-11-15] MEDS: Pantoprazole 40 mg EC Tab PO SCH (10:50)
[2018-11-15] MEDS ORDERED: Lactated Ringer's 1,000 ML IV ONE (12:10)
[2018-11-15] MEDS ORDERED: Propofol 10 mg/ml Inj (20 ML) ONE (12:15)
[2018-11-15] MEDS ORDERED: Midazolam 2 MG/2 ML VIAL ONE (12:15)
--- NOTE | 2018-11-15 18:05 | CP.PCM.PN ---
Subjective - Date & Time of Evaluation Date of Evaluation: 11/14/18 Time of Evaluation: 11:45 - Subjective Subjective: Hospitalist Progress Note Patient was seen and examined at 11:45 AM 11/15/18 Patient underwent EGD on Monday11/12/18 and biopsy was taken of mass extending from GE into the Stomach. 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 Melody Paredes are on board. EGD biopsy PAS Stain also indicated Mallory: Diflucan 100 mg PO 1x/day started by GI 11/14/18 and this should be continued for 21 days through 12/05/18. At this time I do NOT believe that patient is a good surgical candidate for surgery considering the Assessment and Plan #1 below. Heme/Oncologist Dr. Melody Paredes recommendation: outpatient PET Scan for staging and if NO mets then Chemo+Radiation and Surgical evaluation Patient will also need a source of nutrition and therefore PEG Tube was recommended by GI Dr. Aaron. Patient agreed to have this placed and this was performed 11/15/16. PEG tube feeds to start as per GI recommendations. Patient had Right PICC Line placed 11/14/18 as he will need assisted antibiotic for the Bacteremia, UTI, and Pleural Fluid/Empyema (see Assessment and Plan #1 below). VATS procedure was placed on hold by Surgery Team for now. CT Chest 11/12/18: moderate left sided hydropneumothorax, moderate right pleural effusion, bilateral lower lobe consolidations, mediastinal lymphadenopathy, moderate hiatal hernia with gastric wall thickening Chest X Ray 11/14/18: shows significant improvement in the left pleural effusion and is now characterized as small Pigtail Catheter Left Chest was taken off suction and placed on water seal 11/14/18 and Surgery Team has ordered daily Chest X Rays which have shown continued improvement in the Left Pleural Effusion Patient's primary contact and decision maker should he not be able to make decisions on his own is Sister Korin (Home# [phone], ). Spoke with Korin at length via phone on evening 11/15/18 and explained recently developements and plan of care. She explained that patient's home is filthy and packed with garbage/newspapers/empty alcohol bottles and does not feel patient will be able to care forhimself. This information will be discussed with [employer] Plant [employer]er and Psychiatry on 11/16/18. Palliative Care is already on board, but Korin would like assistance in speaking with patient concerning his Will/T estament and I will reach out to Nurse Rosas again on 11/16/18. Upon FULL ROS: NO chest pain at the left pigtail catheter insertion site only if he lays on this side NO SOB/Cough/Wheezing NO abdominal pain NO n/v/d Has still NOT had a bowel movement for the past 1 1/2 weeks but stated that he was not eating much but continues to pass travis and not complain of any abdominal pain NO other complaints upon FULL ROS Exam: General: Resting comfortably and in NO distress HEENT: NCA, EOMI, PERRLA, NO pharyngeal erythema/exudate, NO lymphadenopathy Cardio: NS1 and NS2, NO M/R/G Resp: Decreased breath sounds on the left lower lung dean GI: BSx4, Soft, ND, NO HSM, NO guarding/rebound tenderness Ext: Pulses are strong and equal, Capillary Refill is 2 seconds, 1+ Pitting Edema bilateral lower legs from ankles to midtibia Neuro: CN II through XII are grossly intact Assessment and Plan (1) Sepsis Urinary tract infection Bacteremia Empyema Assessment & Plan: * Code sepsis 11/08/18 * Infectious Disease (Dr. Bojorquez) on board-->help appreciated * Criteria: leukocytosis, hypotension, bandemia, hypothermia, source of infectio ns: empyema, uti, bacteremia * Lactic acid: 3.5-->1.7 * elevated procalcitonin: 1.49-->0.83 on 11/11/18 * Blood culture (11/08/18): Klebsiella pneumoniae * Sensitive to Zosyn with LUPE of less than 4 * Blood culture (11/11/18): Negative to date * Urine culture (11/08/18): Enterococcus Faecalis * Restarted Vancomycin 1 gram IV Q12H 11/11/18 in light of culture results * MRSA (11/08/18): not detected * Pleural fluid (11/09/18): no acid fast bacilli * Pleural fluid (11/09/18): Streptococcus anginosus which is sensitive to Vancomycin which the patient was restarted on 11/11/18 * Chest xray (11/08/18): layering left pleural effusion and/or consolidation * Chest xray (11/09/18): slight increase in left perihilar/basilar opacity. small left pleural effusion, grossly unchanged * Iv abx: * Zosyn 3.375 g IV Q6H (active since 11/08/18) * Vancomycin 1 gram IV Q12 (11/08/18 through 11/11/18): spoke with ID Dr. Bojorquez 11/12/18: Zosyn will cover the Klebsiella, Streptococcus and the Enterococcus * CT Chest 11/12/18: moderate left sided hydropneumothorax, moderate right pleural effusion, bilateral lower lobe consolidations, mediastinal lymphadenopathy, moderate hiatal hernia with gastric wall thickening Status: Acute (2) Empyema; Loculated Left Pleural effusion Assessment & Plan: * Thoracic Surgery (Dr. Bro) on board-->help appreciated * VATS procedure cancelled on 11/12/18 * Repeat CT Chest ordered 11/12/18 * Chest xray (11.08.18): layering left pleural effusion and/or consolidation * Chest xray (11/09/18): slight increase in left perihilar/basilar opacity. small left pleural effusion, grossly unchanged * S/P IR thoracentesis 11/09/18; placement of pigtail catheter * Pleural fluid (11/09/18): Streptococcus anginosus which is sensitive to Vancomycin which the patient was restarted on 11/11/18 * Pleural fluid (11/09/18): moderate PMNs, moderate gram positive cocci * Echocardiogram (08/20/18): left ventricular function is normal, left ventricular ejection fraction is within the the normal range about 55%, mild mitral valve regurgitation noted Status: Acute (3) Anemia Assessment & Plan: * Thoracic Surgery (Dr. Bro) on board-->help appreciated * GI (Dr. Aaron) on board-->help appreciated * Likely secondary to the suspicious mass found on EGD performed on 11/12/18? * On admission: hgb 10-->5 * blood transfusion consent obtained by resident 11/08/18 * given 3 units of PRBC overnight night and 1 FFP unit * rectal negative * ferritin low * iron low: will not repleat at this time considering multiple infections as documented in Assessment/Plan #1 * tibc: 148 low * transferrin low * Stable 8.6 since blood transfusion 11/08/18 * Reticulocyte count: 2.2--> reticulocyte index: 0.12-->hypoproliferation <2 * Folate low * B12: 967 (low) * Occult blood: negative * CT Chest/Abdomen/pelvis (11/08/18): ascites, anasarca, interval loculated left pleural effusion, appearance of GE junction is indeterminate here a hiatal hernia vs mass Status: Acute (4) Cirrhosis Assessment & Plan: * GI (Dr. Aaron) on board-->help appreciated * CT Chest/Abdomen/pelvis IV contrast (11/08/18): prior amount of ascites and anasarca has improved. further findings per report * Abdominal US (08/18/18): limited study. echogenic liver may be seen in hepatic parenchymal disease or fatty infiltrate. nodular hepatic contour. tita lithiasis. gallbladder wall thickening/pericholecystic edema. negative sonographic Cespedes's small abdominal ascites * Hepatitis Panel negative * Blood alcohol <10 * Patient notes he has drinking 3 shots of vodka X30 years. Status: Acute (5) Diabetes mellitus 2 Assessment & Plan: * Hgba1c: 8.1 * Patient is off metformin given elevated lactic on admission * RISS ACHS * Accuchecks QAC and HS Status: Chronic (6) GE junction Mass Assessment & Plan: * Thoracic Surgery (Dr. Bro) on board-->help appreciated * GI (Dr. Aaron) on board-->help appreciated * CT Chest/Abdomen/pelvis (11/08/18): ascites, anasarca, interval loculated left pleural effusion, appearance of GE junction is indeterminate here a hiatal hernia vs mass * Patient is S/P Upper EGD on 11/12/18 and suspicious mass noted from the lower Esophagus into Gastric Fundus. Will follow up pathology and once results known, will get Palliative Care and Heme/Onc on board Status: Acute (7) Alcohol use Assessment & Plan: * [place] protocol * Aspiration precautions * Seizure precautions * Folic acid 1mg PO Daily * MVI tab PO daily * Thiamine 100mg PO daily * 3 shots of vodka X 30 years history * Monitor for withdrawal; patient is not currently in withdrawal * Abdominal US (08/18/18): limited study. Echogenic liver may be seen in hepatic parenchymal disease or fatty infiltrate. Nodular hepatic contour. cholelithiasis. Gallbladder wall thickening/pericholecystic edema. Negative sonographic Cespedes's small abdominal ascites Status: Acute (8) Tobacco use Assessment & Plan: * 1 ppd X30 years * Nicotine patch daily * Advised smoking cessation Status: Acute (9) Cachexia Assessment & Plan: * Related to alcohol, smoking, malnutrition, AND likely related to suspicious GE mass? Status: Acute (10) Ulcer of sacral region, stage 1 Assessment & Plan: * Wound Care Nurse Joseph Amaya is on board: Charlene Price and continue to turn patient every 2 hours Status: Acute (11) Prophylactic measure Status: Acute * PT/OT eval * Protonix 40mg IV q12H * Full code * Lovenox 40mg subq daily for DVT ppx * Bilateral LE Venous Doppler 11/12/18: NO DVTs Disposition: Repeat Blood Culture 11/11/18: negative to date Repeat Urine Culture 11/14/18: results pending Plan for Subacute Rehab Will need to follow up with [employer] concerning Sister Korin's concerns about home environment as documented in HPI above Nestor Sebastian D.O. Objective - Vital Signs/Intake and Output Vital Signs (last 24 hours): Temp Pulse Resp BP Pulse Ox 97.7 F 75 20 138/65 100 11/15/18 15:49 11/15/18 15:49 11/15/18 15:49 11/15/18 15:49 11/15/18 15:49 Intake and Output: 11/15/18 11/15/18 06:59 18:59 Intake Total 350 Output Total 1030 50 Balance -1030 300 - Medications Medications: Current Medications Acetaminophen (Tylenol 325mg Tab) 650 mg PO Q6 PRN PRN Reason: Fever >100.4 F Last Admin: 11/10/18 00:40 Dose: 650 mg Albuterol/Ipratropium (Duoneb 3 Mg/0.5 Mg (3 Ml) Ud) 3 ml INH RQ6 [facility] Last Admin: 11/15/18 16:03 Dose: 3 ml Dextrose (Dextrose 50% Inj) 0 ml IV STAT PRN; Protocol PRN Reason: Hypoglycemia Protocol Dextrose (Glutose 15) 0 gm PO ONCE PRN; Protocol PRN Reason: Hypoglycemia Protocol Enoxaparin Sodium (Lovenox) 40 mg SC DAILY [facility] Last Admin: 11/15/18 10:49 Dose: Not Given Fluconazole (Diflucan) 100 mg PO DAILY [facility]; Protocol Last Admin: 11/15/18 10:49 Dose: Not Given Folic Acid (Folic Acid) 1 mg PO DAILY [facility] Last Admin: 11/15/18 10:49 Dose: Not Given Glucagon (Glucagen Diagnostic Kit) 0 mg IM STAT PRN; Protocol PRN Reason: Hypoglycemia Protocol Piperacillin Sod/Tazobactam Sod (Zosyn 3.375 Gm Iv Premix) 3.375 gm in 50 mls @ 100 mls/hr IVPB Q6H [facility]; Protocol Last Admin: 11/15/18 14:35 Dose: 100 mls/hr Insulin Human Regular (Novolin R) 0 unit SC ACHS [facility]; Protocol Last Admin: 11/15/18 12:30 Dose: Not Given Lactobacillus Acidophilus (Lactobacillus) 1 cap PO Q12H [facility] Last Admin: 11/15/18 10:49 Dose: Not Given Mirtazapine (Remeron) 15 mg PO HS [facility] Last Admin: 11/14/18 21:47 Dose: 15 mg Multivitamins (Hexavitamin) 1 tab PO DAILY [facility] Last Admin: 11/15/18 10:49 Dose: Not Given Nicotine (Nicoderm Cq) 1 patch TD DAILY [facility] Last Admin: 11/15/18 10:50 Dose: Not Given Pantoprazole Sodium (Protonix Ec Tab) 40 mg PO DAILY [facility] Last Admin: 11/15/18 10:50 Dose: Not Given Sertraline HCl (Zoloft) 25 mg PO DAILY [facility] Last Admin: 11/15/18 10:51 Dose: Not Given Sodium Chloride ([place] Baby Saline 30 Ml) 1 ml RODNEY BID [facility] Last Admin: 11/15/18 10:49 Dose: Not Given Thiamine HCl (Vitamin B1 Tab) 100 mg PO DAILY [facility] Last Admin: 11/15/18 10:50 Dose: Not Given - Labs Labs: 11/14/18 07:50 11/14/18 07:50 PT 15.2 SECONDS (9.7-12.2) H 11/12/18 06:13 INR 1.4 11/12/18 06:13 APTT 29 SECONDS (21-34) 11/12/18 06:13
--- NOTE | 2018-11-15 18:38 | CP.PCM.PN ---
Subjective - Date & Time of Evaluation Date of Evaluation: 11/15/18 Time of Evaluation: 10:00 - Subjective Subjective: events noted Bx + SCC at GE junction Oncology reccs noted Cont IV rx for bacteremia / sepsis Objective - Vital Signs/Intake and Output Vital Signs (last 24 hours): Temp Pulse Resp BP Pulse Ox 97.7 F 75 20 138/65 100 11/15/18 15:49 11/15/18 15:49 11/15/18 15:49 11/15/18 15:49 11/15/18 15:49 Intake and Output: 11/15/18 11/15/18 06:59 18:59 Intake Total 350 Output Total 1030 50 Balance -1030 300 - Medications Medications: Current Medications Acetaminophen (Tylenol 325mg Tab) 650 mg PO Q6 PRN PRN Reason: Fever >100.4 F Last Admin: 11/10/18 00:40 Dose: 650 mg Albuterol/Ipratropium (Duoneb 3 Mg/0.5 Mg (3 Ml) Ud) 3 ml INH RQ6 [facility] Last Admin: 11/15/18 16:03 Dose: 3 ml Dextrose (Dextrose 50% Inj) 0 ml IV STAT PRN; Protocol PRN Reason: Hypoglycemia Protocol Dextrose (Glutose 15) 0 gm PO ONCE PRN; Protocol PRN Reason: Hypoglycemia Protocol Enoxaparin Sodium (Lovenox) 40 mg SC DAILY [facility] Last Admin: 11/15/18 10:49 Dose: Not Given Fluconazole (Diflucan) 100 mg PO DAILY [facility]; Protocol Last Admin: 11/15/18 10:49 Dose: Not Given Folic Acid (Folic Acid) 1 mg PO DAILY [facility] Last Admin: 11/15/18 10:49 Dose: Not Given Glucagon (Glucagen Diagnostic Kit) 0 mg IM STAT PRN; Protocol PRN Reason: Hypoglycemia Protocol Piperacillin Sod/Tazobactam Sod (Zosyn 3.375 Gm Iv Premix) 3.375 gm in 50 mls @ 100 mls/hr IVPB Q6H [facility]; Protocol Last Admin: 11/15/18 14:35 Dose: 100 mls/hr Insulin Human Regular (Novolin R) 0 unit SC ACHS [facility]; Protocol Last Admin: 11/15/18 18:00 Dose: Not Given Lactobacillus Acidophilus (Lactobacillus) 1 cap PO Q12H [facility] Last Admin: 11/15/18 10:49 Dose: Not Given Mirtazapine (Remeron) 15 mg PO HS [facility] Last Admin: 11/14/18 21:47 Dose: 15 mg Multivitamins (Hexavitamin) 1 tab PO DAILY [facility] Last Admin: 11/15/18 10:49 Dose: Not Given Nicotine (Nicoderm Cq) 1 patch TD DAILY [facility] Last Admin: 11/15/18 10:50 Dose: Not Given Pantoprazole Sodium (Protonix Ec Tab) 40 mg PO DAILY [facility] Last Admin: 11/15/18 10:50 Dose: Not Given Sertraline HCl (Zoloft) 25 mg PO DAILY [facility] Last Admin: 11/15/18 10:51 Dose: Not Given Sodium Chloride ([place] Baby Saline 30 Ml) 1 ml RODNEY BID [facility] Last Admin: 11/15/18 10:49 Dose: Not Given Thiamine HCl (Vitamin B1 Tab) 100 mg PO DAILY [facility] Last Admin: 11/15/18 10:50 Dose: Not Given - Labs Labs: 11/14/18 07:50 11/14/18 07:50 PT 15.2 SECONDS (9.7-12.2) H 11/12/18 06:13 INR 1.4 11/12/18 06:13 APTT 29 SECONDS (21-34) 11/12/18 06:13 - Constitutional Appears: Non-toxic, Cachectic, Chronically Ill - Head Exam Head Exam: NORMOCEPHALIC (x) - Eye Exam Eye Exam: absent: Scleral icterus - ENT Exam ENT Exam: Mucous Membranes Dry - Neck Exam Neck Exam: absent: Lymphadenopathy - Respiratory Exam Respiratory Exam: Decreased Breath Sounds, Rhonchi Additional comments: left chest tube in place - Cardiovascular Exam Cardiovascular Exam: REGULAR RHYTHM. absent: Gallop, +S1 - GI/Abdominal Exam GI & Abdominal Exam: Distended, Soft - Rectal Exam Rectal Exam: Deferred - Exam Exam: NORMAL INSPECTION, Scrotal Swelling - Extremities Exam Extremities Exam: absent: Pedal Edema - Back Exam Back Exam: absent: CVA tenderness (L), CVA tenderness (R) - Neurological Exam Neurological Exam: Alert, Awake, CN II-XII Intact - Skin Skin Exam: absent: Petechiae Assessment and Plan (1) Esophageal mass Status: Acute (2) Abnormal CT scan, chest Status: Acute (3) Alcohol use Status: Acute (4) Anemia Status: Acute (5) Cachexia Status: Acute (6) Pleural effusion Status: Acute (7) Sepsis Status: Acute (8) Cirrhosis Status: Acute (9) Diabetes mellitus Status: Acute (10) Gram negative sepsis Status: Acute - Assessment and Plan (Free Text) Assessment: s/p chest tube drainage unclkear if PTX will resolve + SCC by biopsy cont IV zosyn
[2018-11-15] MEDS ORDERED: Dextrose 50% SYRINGE Inj (50 ml) IV PRN (21:15)
[2018-11-15] MEDS ORDERED: Glucagon Recombinant 1 mg Inj IM PRN (21:15)
[2018-11-15] MEDS: Lactobacillus Acidophilus 500 MU Cap PO SCH (21:25)
--- NOTE | 2018-11-15 23:39 | CP.PCM.PN ---
Subjective - Date & Time of Evaluation Date of Evaluation: 11/14/18 Time of Evaluation: 17:15 - Subjective Subjective: Patient seen and evaluated Admitted for dyspnea and weight loss GI work up in progress Objective - Constitutional Appears: Non-toxic, No Acute Distress, Unkempt, Cachectic - Head Exam Head Exam: NORMAL INSPECTION - Eye Exam Eye Exam: EOMI - ENT Exam ENT Exam: Mucous Membranes Moist - Respiratory Exam Respiratory Exam: Rhonchi, NORMAL BREATHING PATTERN. absent: Wheezes - Cardiovascular Exam Cardiovascular Exam: REGULAR RHYTHM, +S1, +S2 - GI/Abdominal Exam GI & Abdominal Exam: Soft, Normal Bowel Sounds. absent: Distended, Firm, Gu arding, Rigid, Tenderness, Rebound - Extremities Exam Extremities Exam: Pedal Edema (ankles pitting). absent: Tenderness - Neurological Exam Neurological Exam: Alert, Awake, Oriented x3 - Psychiatric Exam Psychiatric exam: Normal Affect, Normal Mood - Skin Skin Exam: Dry, Pallor, Warm Assessment and Plan (1) Sepsis urinary tract infection bacteremia Empyema Assessment & Plan: * Code sepsis 11/08/18 * Infectious Disease (Dr. Bojorquez) on board-->help appreciated * Criteria: leukocytosis, hypotension, bandemia, hypothemia, source of infections: empyema, uti, bacteremia * Lactic acid: 3.5-->1.7 * elevated procalcitonin: 1.49-->0.83 * procalcitonin 11/11/18 * Blood culture (11/08/18): Klebsiella pneumoniae * Sensitive to Zosyn with LUPE of less than 4 * Blood culture (11/08/18): no growth * Blood culture (11/10/18): pending * Urine culture (11/08/18): Enterococcus Faecalis * Restarted vancomycin today in light of culture results * MRSA (11/08/18): not detected * Pleural fluid (11/09/18): no acid fast bacilli * Pleural fluid (11/09/18): moderate PMNs, moderate gram positive cocci * Chest xray (11/08/18): layering left pleural effusion and/or consolidation * Chest xray (11/09/18): slight increase in left perihilar/basilar opacity. small left pleural effusion, grossly unchanged * Iv abx: * Zosyn 3.375 g IV Q6H (active since 11/08/18) * Vancomycin 1 gram IV Q12 (active since 11/08/18) d/c 11/10/18 Status: Acute (2) Empyema; Loculated Left Pleural effusion Assessment & Plan: * Thoracic Surgery (Dr. Bro) on board-->help appreciated * Follow-up with surgery in the morning to determine bouts is on schedule for Monday, November 12, 2018 * Chest xray (11.08.18): layering left pleural effusion and/or consolidation * Chest xray (11/09/18): slight increase in left perihilar/basilar opacity. small left pleural effusion, grossly unchanged * s/p IR thoracentesis 11/09/18; placement of pigtail catheter * Pending albumin, cell count, glucose, LDH, total protein * Pleural fluid (11/09/18): no acid fast bacilli * Pleural fluid (11/09/18): moderate PMNs, moderate gram positive cocci * Cancelled echo initially completed in Aug 2018 * Echocardiogram (08/20/18): left ventricular function is normal, left ventricular ejection fraction is within the the normal range about 55%, mild mitral valve regurgitation noted Status: Acute (3) Anemia Assessment & Plan: * Thoracic Surgery (Dr. Bro) on board-->help appreciated * GI (Dr. Aaron) on board-->help appreciated * on admission: hgb 10-->5 * blood transfusion consent obtained by resident 11/08/18 * given 3 units of PRBC overnight night and 1 FFP unit * rectal negative * ferritin low * iron low * tibc: 148 low * transferrin low * Stable 8.6 since blood transfusion 11/08 * Reticulocyte count: 2.2--> reticulocyte index: 0.12-->hypoproliferation <2 * Folate low * B12: 967 (low) * occult blood: negative * CT Chest/Abdomen/pelvis (11/08/18): ascites, anasarca, interval loculated left pleural effusion, appearance of GE junction is indeterminate here a hiatal hernia vs mass * Possible VATS on Monday or EGD pending the output from pigtail Status: Acute (4) Cirrhosis Assessment & Plan: * GI (Dr. Aaron) on board-->help appreciated * CT Chest/Abdomen/pelvis IV contrast (11/08/18): prior amount of ascites and anasarca has improved. further findings per report * Abdominal US (08/18/18): limited study. echogenic liver may be seen in hepatic parenchymal disease or fatty infiltrate. nodular hepatic contour. cholelithiasis. gallbladder wall thickening/pericholecystic edema. negative sonographic Cespedes's small abdominal ascites * Hepatitis Panel negative * Blood alcohol <10 * Patient notes he has drinking 3 shots of vodka X30 years. Status: Acute (5) Diabetes mellitus Assessment & Plan: * Hgba1c: 8.1 * Patient is off metformin given elevated lactic on admission * regular insulin sliding scale qAC HS * Accuchecks QAC and HS Status: Chronic (6) Possible GE junction Mass Assessment & Plan: * Thoracic Surgery (Dr. Bro) on board-->help appreciated * GI (Dr. Aaron) on board-->help appreciated * CT Chest/Abdomen/pelvis (11/08/18): ascites, anasarca, interval loculated left pleural effusion, appearance of GE junction is indeterminate here a hiatal hernia vs mass * Possible VATS vs EGD on Monday Status: Acute (7) Alcohol use Assessment & Plan: * ciwa protocol * Aspiration precautions * seizure precautions * Folic acid 1mg PO Daily * MVI tab PO daily * Thiamine 100mg PO daily * 3 shots of vodka X 30 years history * monitor for withdrawal; patient is not in withdrawal * Abdominal US (08/18/18): limited study. echogenic liver may be seen in hepatic parenchymal disease or fatty infiltrate. nodular hepatic contour. cholelithiasis. gallbladder wall thickening/pericholecystic edema. negative sonographic Cespedes's small abdominal ascites Status: Acute (8) Tobacco use Assessment & Plan: * 1 ppd X30 years * nicotine patch daily * advised smoking cessation to avoid premature aging, cancer risk etc Status: Acute (9) Cachexia Status: Acute * related to alcohol, smoking, malnutrition, possible related to cancer pending GE mass? (10) Ulcer of sacral region, stage 1 Assessment & Plan: * bed bound * wound care * turn q2h Status: Acute (11) Prophylactic measure Status: Acute * PT/OT eval * protonix 40mg IV q12H * Full code * Lovenox 40mg subq daily for DVT ppx Objective - Vital Signs/Intake and Output Vital Signs (last 24 hours): Temp Pulse Resp BP Pulse Ox 97.7 F 75 20 138/65 100 11/15/18 15:49 11/15/18 15:49 11/15/18 15:49 11/15/18 15:49 11/15/18 15:49 Intake and Output: 11/15/18 11/16/18 18:59 06:59 Intake Total 350 Output Total 50 350 Balance 300 -350 - Medications Medications: Current Medications Acetaminophen (Tylenol 325mg Tab) 650 mg PO Q6 PRN PRN Reason: Fever >100.4 F Albuterol/Ipratropium (Duoneb 3 Mg/0.5 Mg (3 Ml) Ud) 3 ml INH RQ6 [facility] Dextrose (Dextrose 50% Inj) 0 ml IV STAT PRN; Protocol PRN Reason: Hypoglycemia Protocol Dextrose (Glutose 15) 0 gm PO ONCE PRN; Protocol PRN Reason: Hypoglycemia Protocol Enoxaparin Sodium (Lovenox) 40 mg SC DAILY [facility] Fluconazole (Diflucan) 100 mg PO DAILY [facility]; Protocol Folic Acid (Folic Acid) 1 mg PO DAILY [facility] Glucagon (Glucagen Diagnostic Kit) 0 mg IM STAT PRN; Protocol PRN Reason: Hypoglycemia Protocol Piperacillin Sod/Tazobactam Sod (Zosyn 3.375 Gm Iv Premix) 3.375 gm in 50 mls @ 100 mls/hr IVPB Q6H [facility]; Protocol Last Admin: 11/15/18 21:24 Dose: 100 mls/hr Insulin Human Regular (Novolin R) 0 unit SC ACHS [facility]; Protocol Last Admin: 11/15/18 21:26 Dose: Not Given Lactobacillus Acidophilus (Lactobacillus) 1 cap PO Q12H [facility] Last Admin: 11/15/18 21:25 Dose: 1 cap Mirtazapine (Remeron) 15 mg PO HS [facility] Last Admin: 11/15/18 21:25 Dose: 15 mg Multivitamins (Hexavitamin) 1 tab PO DAILY [facility] Nicotine (Nicoderm Cq) 1 patch TD DAILY [facility] Pantoprazole Sodium (Protonix Ec Tab) 40 mg PO DAILY [facility] Sertraline HCl (Zoloft) 25 mg PO DAILY [facility] Sodium Chloride ([place] Baby Saline 30 Ml) 1 ml RODNEY BID [facility] Last Admin: 11/15/18 10:49 Dose: Not Given Thiamine HCl (Vitamin B1 Tab) 100 mg PO DAILY [facility] - Labs Labs: 11/14/18 07:50 11/14/18 07:50 PT 15.2 SECONDS (9.7-12.2) H 11/12/18 06:13 INR 1.4 11/12/18 06:13 APTT 29 SECONDS (21-34) 11/12/18 06:13
--- NOTE | 2018-11-15 23:39 | CP.PCM.PN ---
Subjective - Date & Time of Evaluation Date of Evaluation: 11/15/18 Time of Evaluation: 15:15 - Subjective Subjective: Patient seen and evaluated Admitted for dyspnea and weight loss feels batter Objective - Constitutional Appears: Non-toxic, No Acute Distress, Unkempt, Cachectic - Head Exam Head Exam: NORMAL INSPECTION - Eye Exam Eye Exam: EOMI - ENT Exam ENT Exam: Mucous Membranes Moist - Respiratory Exam Respiratory Exam: Rhonchi, NORMAL BREATHING PATTERN. absent: Wheezes - Cardiovascular Exam Cardiovascular Exam: REGULAR RHYTHM, +S1, +S2 - GI/Abdominal Exam GI & Abdominal Exam: Soft, Normal Bowel Sounds. absent: Distended, Firm, Guarding, Rigid, Tenderness, Rebound - Extremities Exam Extremities Exam: Pedal Edema (ankles pitting). absent: Tenderness - Neurological Exam Neurological Exam: Alert, Awake, Oriented x3 - Psychiatric Exam Psychiatric exam: Normal Affect, Normal Mood - Skin Skin Exam: Dry, Pallor, Warm Assessment and Plan (1) Sepsis urinary tract infection bacteremia Empyema Assessment & Plan: * Code sepsis 11/08/18 * Infectious Disease (Dr. Bojorquez) on board-->help appreciated * Criteria: leukocytosis, hypotension, bandemia, hypothemia, source of infections: empyema, uti, bacteremia * Lactic acid: 3.5-->1.7 * elevated procalcitonin: 1.49-->0.83 * procalcitonin 11/11/18 * Blood culture (11/08/18): Klebsiella pneumoniae * Sensitive to Zosyn with LUPE of less than 4 * Blood culture (11/08/18): no growth * Blood culture (11/10/18): pending * Urine culture (11/08/18): Enterococcus Faecalis * Restarted vancomycin today in light of culture results * MRSA (11/08/18): not detected * Pleural fluid (11/09/18): no acid fast bacilli * Pleural fluid (11/09/18): moderate PMNs, moderate gram positive cocci * Chest xray (11/08/18): layering left pleural effusion and/or consolidation * Chest xray (11/09/18): slight increase in left perihilar/basilar opacity. small left pleural effusion, grossly unchanged * Iv abx: * Zosyn 3.375 g IV Q6H (active since 11/08/18) * Vancomycin 1 gram IV Q12 (active since 11/08/18) d/c 11/10/18 Status: Acute (2) Empyema; Loculated Left Pleural effusion Assessment & Plan: * Thoracic Surgery (Dr. Bro) on board-->help appreciated * Follow-up with surgery in the morning to determine bouts is on schedule for Monday, November 12, 2018 * Chest xray (11.08.18): layering left pleural effusion and/or consolidation * Chest xray (11/09/18): slight increase in left perihilar/basilar opacity. small left pleural effusion, grossly unchanged * s/p IR thoracentesis 11/09/18; placement of pigtail catheter * Pending albumin, cell count, glucose, LDH, total protein * Pleural fluid (11/09/18): no acid fast bacilli * Pleural fluid (11/09/18): moderate PMNs, moderate gram positive cocci * Cancelled echo initially completed in Aug 2018 * Echocardiogram (08/20/18): left ventricular function is normal, left ventricular ejection fraction is within the the normal range about 55%, mild mitral valve regurgitation noted Status: Acute (3) Anemia Assessment & Plan: * Thoracic Surgery (Dr. Bro) on board-->help appreciated * GI (Dr. Aaron) on board-->help appreciated * on admission: hgb 10-->5 * blood transfusion consent obtained by resident 11/08/18 * given 3 units of PRBC overnight night and 1 FFP unit * rectal negative * ferritin low * iron low * tibc: 148 low * transferrin low * Stable 8.6 since blood transfusion 11/08 * Reticulocyte count: 2.2--> reticulocyte index: 0.12-->hypoproliferation <2 * Folate low * B12: 967 (low) * occult blood: negative * CT Chest/Abdomen/pelvis (11/08/18): ascites, anasarca, interval loculated left pleural effusion, appearance of GE junction is indeterminate here a hiatal hernia vs mass * Possible VATS on Monday or EGD pending the output from pigtail Status: Acute (4) Cirrhosis Assessment & Plan: * GI (Dr. Aaron) on board-->help appreciated * CT Chest/Abdomen/pelvis IV contrast (11/08/18): prior amount of ascites and anasarca has improved. further findings per report * Abdominal US (08/18/18): limited study. echogenic liver may be seen in hepatic parenchymal disease or fatty infiltrate. nodular hepatic contour. cholelithiasis. gallbladder wall thickening/pericholecystic edema. negative sonographic Cespedes's small abdominal ascites * Hepatitis Panel negative * Blood alcohol <10 * Patient notes he has drinking 3 shots of vodka X30 years. Status: Acute (5) Diabetes mellitus Assessment & Plan: * Hgba1c: 8.1 * Patient is off metformin given elevated lactic on admission * regular insulin sliding scale qAC HS * Accuchecks QAC and HS Status: Chronic (6) Possible GE junction Mass Assessment & Plan: * Thoracic Surgery (Dr. Bro) on board-->help appreciated * GI (Dr. Aaron) on board-->help appreciated * CT Chest/Abdomen/pelvis (11/08/18): ascites, anasarca, interval loculated left pleural effusion, appearance of GE junction is indeterminate here a hiatal hernia vs mass * Possible VATS vs EGD on Monday Status: Acute (7) Alcohol use Assessment & Plan: * ciwa protocol * Aspiration precautions * seizure precautions * Folic acid 1mg PO Daily * MVI tab PO daily * Thiamine 100mg PO daily * 3 shots of vodka X 30 years history * monitor for withdrawal; patient is not in withdrawal * Abdominal US (08/18/18): limited study. echogenic liver may be seen in hepatic parenchymal disease or fatty infiltrate. nodular hepatic contour. cholelithiasis. gallbladder wall thickening/pericholecystic edema. negative sonographic Cespedes's small abdominal ascites Status: Acute (8) Tobacco use Assessment & Plan: * 1 ppd X30 years * nicotine patch daily * advised smoking cessation to avoid premature aging, cancer risk etc Status: Acute (9) Cachexia Status: Acute * related to alcohol, smoking, malnutrition, possible related to cancer pending GE mass? (10) Ulcer of sacral region, stage 1 Assessment & Plan: * bed bound * wound care * turn q2h Status: Acute (11) Prophylactic measure Status: Acute * PT/OT eval * protonix 40mg IV q12H * Full code * Lovenox 40mg subq daily for DVT ppx Objective - Vital Signs/Intake and Output Vital Signs (last 24 hours): Temp Pulse Resp BP Pulse Ox 97.7 F 75 20 138/65 100 11/15/18 15:49 11/15/18 15:49 11/15/18 15:49 11/15/18 15:49 11/15/18 15:49 Intake and Output: 11/15/18 11/16/18 18:59 06:59 Intake Total 350 Output Total 50 350 Balance 300 -350 - Medications Medications: Current Medications Acetaminophen (Tylenol 325mg Tab) 650 mg PO Q6 PRN PRN Reason: Fever >100.4 F Albuterol/Ipratropium (Duoneb 3 Mg/0.5 Mg (3 Ml) Ud) 3 ml INH RQ6 [facility] Dextrose (Dextrose 50% Inj) 0 ml IV STAT PRN; Protocol PRN Reason: Hypoglycemia Protocol Dextrose (Glutose 15) 0 gm PO ONCE PRN; Protocol PRN Reason: Hypoglycemia Protocol Enoxaparin Sodium (Lovenox) 40 mg SC DAILY [facility] Fluconazole (Diflucan) 100 mg PO DAILY [facility]; Protocol Folic Acid (Folic Acid) 1 mg PO DAILY [facility] Glucagon (Glucagen Diagnostic Kit) 0 mg IM STAT PRN; Protocol PRN Reason: Hypoglycemia Protocol Piperacillin Sod/Tazobactam Sod (Zosyn 3.375 Gm Iv Premix) 3.375 gm in 50 mls @ 100 mls/hr IVPB Q6H [facility]; Protocol Last Admin: 11/15/18 21:24 Dose: 100 mls/hr Insulin Human Regular (Novolin R) 0 unit SC ACHS [facility]; Protocol Last Admin: 11/15/18 21:26 Dose: Not Given Lactobacillus Acidophilus (Lactobacillus) 1 cap PO Q12H [facility] Last Admin: 11/15/18 21:25 Dose: 1 cap Mirtazapine (Remeron) 15 mg PO HS [facility] Last Admin: 11/15/18 21:25 Dose: 15 mg Multivitamins (Hexavitamin) 1 tab PO DAILY [facility] Nicotine (Nicoderm Cq) 1 patch TD DAILY [facility] Pantoprazole Sodium (Protonix Ec Tab) 40 mg PO DAILY [facility] Sertraline HCl (Zoloft) 25 mg PO DAILY [facility] Sodium Chloride ([place] Baby Saline 30 Ml) 1 ml RODNEY BID [facility] Last Admin: 11/15/18 10:49 Dose: Not Given Thiamine HCl (Vitamin B1 Tab) 100 mg PO DAILY [facility] - Labs Labs: 11/14/18 07:50 11/14/18 07:50 PT 15.2 SECONDS (9.7-12.2) H 11/12/18 06:13 INR 1.4 11/12/18 06:13 APTT 29 SECONDS (21-34) 11/12/18 06:13
[2018-11-16] MEDS: Piperacill/Tazo 3.375gm in Dex 3.375 GM/50 ML BAG IVPB SCH ×4 (02:37→20:26)
[2018-11-16] MEDS: Albuterol-Ipratrop 3 mg / 0.5 (3 ml) UD INH SCH ×4 (02:54→19:31)
--- NOTE | 2018-11-16 06:51 | CP.PCM.PN ---
<Mary Olivia - Last Filed: 11/16/18 06:51> Subjective - Date & Time of Evaluation Date of Evaluation: 11/16/18 Time of Evaluation: 06:51 - Subjective Subjective: PGY-1 Mary Olivia D.O. medicine progress note for Dr. Nestor Sebastian's service: Patient was seen and examined this morning. Objective - Vital Signs/Intake and Output Vital Signs (last 24 hours): Temp Pulse Resp BP Pulse Ox 98.1 F 82 20 122/68 99 11/15/18 23:10 11/16/18 04:03 11/15/18 23:10 11/15/18 23:10 11/15/18 23:10 Intake and Output: 11/15/18 11/16/18 18:59 06:59 Intake Total 350 70 Output Total 50 1153 Balance 300 -1083 - Medications Medications: Current Medications Acetaminophen (Tylenol 325mg Tab) 650 mg PO Q6 PRN PRN Reason: Fever >100.4 F Albuterol/Ipratropium (Duoneb 3 Mg/0.5 Mg (3 Ml) Ud) 3 ml INH RQ6 [facility] Dextrose (Dextrose 50% Inj) 0 ml IV STAT PRN; Protocol PRN Reason: Hypoglycemia Protocol Dextrose (Glutose 15) 0 gm PO ONCE PRN; Protocol PRN Reason: Hypoglycemia Protocol Enoxaparin Sodium (Lovenox) 40 mg SC DAILY [facility] Fluconazole (Diflucan) 100 mg PO DAILY [facility]; Protocol Folic Acid (Folic Acid) 1 mg PO DAILY [facility] Glucagon (Glucagen Diagnostic Kit) 0 mg IM STAT PRN; Protocol PRN Reason: Hypoglycemia Protocol Piperacillin Sod/Tazobactam Sod (Zosyn 3.375 Gm Iv Premix) 3.375 gm in 50 mls @ 100 mls/hr IVPB Q6H [facility]; Protocol Last Admin: 11/16/18 02:37 Dose: 100 mls/hr Insulin Human Regular (Novolin R) 0 unit SC ACHS [facility]; Protocol Last Admin: 11/15/18 21:26 Dose: Not Given Lactobacillus Acidophilus (Lactobacillus) 1 cap PO Q12H [facility] Last Admin: 11/15/18 21:25 Dose: 1 cap Mirtazapine (Remeron) 15 mg PO HS [facility] Last Admin: 11/15/18 21:25 Dose: 15 mg Multivitamins (Hexavitamin) 1 tab PO DAILY [facility] Nicotine (Nicoderm Cq) 1 patch TD DAILY [facility] Pantoprazole Sodium (Protonix Ec Tab) 40 mg PO DAILY [facility] Sertraline HCl (Zoloft) 25 mg PO DAILY [facility] Sodium Chloride ([place] Baby Saline 30 Ml) 1 ml RODNEY BID [facility] Last Admin: 11/15/18 10:49 Dose: Not Given Thiamine HCl (Vitamin B1 Tab) 100 mg PO DAILY [facility] - Labs Labs: 11/14/18 07:50 11/14/18 07:50 PT 15.2 SECONDS (9.7-12.2) H 11/12/18 06:13 INR 1.4 11/12/18 06:13 APTT 29 SECONDS (21-34) 11/12/18 06:13 <Nestor Sebastian - Last Filed: 11/16/18 17:02> Objective - Vital Signs/Intake and Output Vital Signs (last 24 hours): Temp Pulse Resp BP Pulse Ox 98.3 F 84 20 120/74 97 11/16/18 07:22 11/16/18 07:22 11/16/18 07:22 11/16/18 07:22 11/16/18 07:22 Intake and Output: 11/16/18 11/16/18 06:59 18:59 Intake Total 70 Output Total 1153 Balance -1083 - Medications Medications: Current Medications Acetaminophen (Tylenol 325mg Tab) 650 mg PO Q6 PRN PRN Reason: Fever >100.4 F Albuterol/Ipratropium (Duoneb 3 Mg/0.5 Mg (3 Ml) Ud) 3 ml INH RQ6 [facility] Last Admin: 11/16/18 13:37 Dose: 3 ml Dextrose (Dextrose 50% Inj) 0 ml IV STAT PRN; Protocol PRN Reason: Hypoglycemia Protocol Dextrose (Glutose 15) 0 gm PO ONCE PRN; Protocol PRN Reason: Hypoglycemia Protocol Enoxaparin Sodium (Lovenox) 40 mg SC DAILY [facility] Last Admin: 11/16/18 10:30 Dose: 40 mg Fluconazole (Diflucan) 100 mg PO DAILY [facility]; Protocol Last Admin: 11/16/18 10:22 Dose: 100 mg Folic Acid (Folic Acid) 1 mg PO DAILY [facility] Last Admin: 11/16/18 10:21 Dose: 1 mg Glucagon (Glucagen Diagnostic Kit) 0 mg IM STAT PRN; Protocol PRN Reason: Hypoglycemia Protocol Piperacillin Sod/Tazobactam Sod (Zosyn 3.375 Gm Iv Premix) 3.375 gm in 50 mls @ 100 mls/hr IVPB Q6H [facility]; Protocol Last Admin: 11/16/18 14:17 Dose: 100 mls/hr Insulin Human Regular (Novolin R) 0 unit SC ACHS [facility]; Protocol Last Admin: 11/16/18 14:17 Dose: 2 u Lactobacillus Acidophilus (Lactobacillus) 1 cap PO Q12H [facility] Last Admin: 11/16/18 10:34 Dose: 1 cap Mirtazapine (Remeron) 15 mg PO HS [facility] Last Admin: 11/15/18 21:25 Dose: 15 mg Multivitamins (Hexavitamin) 1 tab PO DAILY [facility] Last Admin: 11/16/18 10:23 Dose: 1 tab Nicotine (Nicoderm Cq) 1 patch TD DAILY [facility] Last Admin: 11/16/18 10:23 Dose: 1 patch Pantoprazole Sodium (Protonix Ec Tab) 40 mg PO DAILY [facility] Last Admin: 11/16/18 10:38 Dose: 40 mg Sertraline HCl (Zoloft) 25 mg PO DAILY [facility] Last Admin: 11/16/18 11:07 Dose: 25 mg Sodium Chloride ([place] Baby Saline 30 Ml) 1 ml RODNEY BID [facility] Last Admin: 11/16/18 10:35 Dose: 1 spr Thiamine HCl (Vitamin B1 Tab) 100 mg PO DAILY [facility] Last Admin: 11/16/18 10:22 Dose: 100 mg - Labs Labs: 11/16/18 09:32 11/16/18 09:32 PT 15.2 SECONDS (9.7-12.2) H 11/12/18 06:13 INR 1.4 11/12/18 06:13 APTT 29 SECONDS (21-34) 11/12/18 06:13 Attending/Attestation - Attestation I have personally seen and examined this patient.: Yes I have fully participated in the care of the patient.: Yes I have reviewed all pertinent clinical information, including history, physical exam and plan: Yes Notes (Text): 11/16/18 16:49 Hospitalist Progress Note Patient was seen and examined at 11:45 AM 11/16/18 Patient underwent EGD on Monday11/12/18 and biopsy was taken of mass extending from GE into the Stomach. 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 Melody Paredes are on board. EGD biopsy PAS Stain also indicated Mallory: Diflucan 100 mg PO 1x/day started by GI 11/14/18 and this should be continued for 21 days through 12/05/18. At this time I do NOT believe that patient is a good surgical candidate for surgery considering the Assessment and Plan #1 below. Heme/Oncologist Dr. Melody Paredes recommendation: outpatient PET Scan for staging and if NO mets then Chemo+Radiation and Surgical evaluation Patient will also need a source of nutrition and therefore PEG Tube was recommended by GI Dr. Aaron. Patient agreed to have this placed and this was performed 11/15/16. Baler Operator has seen patient 11/16/18 and the following has been recommended: Glucerna 1.5 bolus feeding 6x per day with 250 ml Free Water Flush Q6H. GI has ordered the PEG Tube feedings. Patient had Right PICC Line placed 11/14/18 as he will need terminal operator antibiotic for the Bacteremia, UTI, and Pleural Fluid/Empyema (see Assessment and Plan #1 below). VATS procedure was placed on hold by Surgery Team for now. CT Chest 11/12/18: moderate left sided hydropneumothorax, moderate right pleural effusion, bilateral lower lobe consolidations, mediastinal lymphadenopathy, moderate hiatal hernia with gastric wall thickening Chest X Ray 11/14/18: shows significant improvement in the left pleural effusion and is now characterized as small Pigtail Catheter Left Chest was taken off suction and placed on water seal 11/14/18 and Surgery Team has ordered daily Chest X Rays which have shown brad nued improvement in the Left Pleural Effusion Patient's primary contact and decision maker should he not be able to make decisions on his own is Sister Korin (Home# [phone], ). Spoke with Korin at length via phone on evening 11/15/18 and explained recently developements and plan of care. She explained that patient's home is filthy and packed with garbage/newspapers/empty alcohol bottles and does not feel patient will be able to care for himself. I spoke with Psychiatrist Dr. Xiao and informed him of the patient's home living situation and he will see patient again on 11/19/18. Corn Sheller Operator Minnie was notified of Korin's concerns and [facility] would notify Adult Protective Services once he is discharge to [facility]. Palliative Care is already on board, but Korin would like assistance in speaking with patient concerning his Will/Testament and I have asked Palliative Care Nurse Rosas to speak with the patient when she is back on 11/19/18. Upon FULL ROS: NO chest pain at the left pigtail catheter insertion site only if he lays on this side There is some soreness at the PEG tube insertion site NO SOB/Cough/Wheezing NO abdominal pain NO n/v/d He now remembers having a bowel movement on Monday11/14/18 evening NO other complaints upon FULL ROS Exam: General: Resting comfortably and in NO distress HEENT: NCA, EOMI, PERRLA, NO pharyngeal erythema/exudate, NO lymphadenopathy Cardio: NS1 and NS2, NO M/R/G Resp: Decreased breath sounds on the left lower lung field have improved GI: BSx4, Soft, ND, NO HSM, NO guarding/rebound tenderness. PEG Tube insertion site without any surrounding signs of cellulitis Ext: Pulses are strong and equal, Capillary Refill is 2 seconds, 1+ Pitting Edema bilateral lower legs from ankles to midtibia Neuro: CN II through XII are grossly intact Skin: Nonblanchable erythema upper buttocks and lower sacrum without any skin breakdown Assessment and Plan (1) Sepsis Urinary tract infection Bacteremia Empyema Assessment & Plan: * Code sepsis 11/08/18 * Infectious Disease (Dr. Bojorquez) on board-->help appreciated * Criteria: leukocytosis, hypotension, bandemia, hypothermia, source of infections: empyema, uti, bacteremia * Lactic acid: 3.5-->1.7 * elevated procalcitonin: 1.49-->0.83 on 11/11/18 * Blood culture (11/08/18): Klebsiella pneumoniae * Sensitive to Zosyn with LUPE of less than 4 * Blood culture (11/11/18): Negative to date * Urine culture (11/08/18): Enterococcus Faecalis * Restarted Vancomycin 1 gram IV Q12H 11/11/18 in light of culture results * MRSA (11/08/18): not detected * Pleural fluid (11/09/18): no acid fast bacilli * Pleural fluid (11/09/18): Streptococcus anginosus which is sensitive to Vancomycin which the patient was restarted on 11/11/18 * Chest xray (11/08/18): layering left pleural effusion and/or consolidation * Chest xray (11/09/18): slight increase in left perihilar/basilar opacity. small left pleural effusion, grossly unchanged * Iv abx: * Zosyn 3.375 g IV Q6H (active since 11/08/18) * Vancomycin 1 gram IV Q12 (11/08/18 through 11/11/18): spoke with ID Dr. Bojorquez 11/12/18: Zosyn will cover the Klebsiella, Streptococcus and the En terococcus * CT Chest 11/12/18: moderate left sided hydropneumothorax, moderate right pleural effusion, bilateral lower lobe consolidations, mediastinal lymphadenopathy, moderate hiatal hernia with gastric wall thickening Status: Acute (2) Empyema; Loculated Left Pleural effusion Assessment & Plan: * Thoracic Surgery (Dr. Bro) on board-->help appreciated * VATS procedure cancelled on 11/12/18 * Repeat CT Chest ordered 11/12/18 * Chest xray (11.08.18): layering left pleural effusion and/or consolidation * Chest xray (11/09/18): slight increase in left perihilar/basilar opacity. small left pleural effusion, grossly unchanged * S/P IR thoracentesis 11/09/18; placement of pigtail catheter * Pleural fluid (11/09/18): Streptococcus anginosus which is sensitive to Vancomycin which the patient was restarted on 11/11/18 * Pleural fluid (11/09/18): moderate PMNs, moderate gram positive cocci * Echocardiogram (08/20/18): left ventricular function is normal, left ventricular ejection fraction is within the the normal range about 55%, mild mitral valve regurgitation noted Status: Acute (3) Anemia Assessment & Plan: * Thoracic Surgery (Dr. Bro) on board-->help appreciated * GI (Dr. Aaron) on board-->help appreciated * Likely secondary to the suspicious mass found on EGD performed on 11/12/18? * On admission: hgb 10-->5 * blood transfusion consent obtained by resident 11/08/18 * given 3 units of PRBC overnight night and 1 FFP unit * rectal negative * ferritin low * iron low: will not repleat at this time considering multiple infections as documented in Assessment/Plan #1 * tibc: 148 low * transferrin low * Stable 8.6 since blood transfusion 11/08/18 * Reticulocyte count: 2.2--> reticulocyte index: 0.12-->hypoproliferation <2 * Folate low * B12: 967 (low) * Occult blood: negative * CT Chest/Abdomen/pelvis (11/08/18): ascites, anasarca, interval loculated left pleural effusion, appearance of GE junction is indeterminate here a hiatal hernia vs mass Status: Acute (4) Cirrhosis Assessment & Plan: * GI (Dr. Aaron) on board-->help appreciated * CT Chest/Abdomen/pelvis IV contrast (11/08/18): prior amount of ascites and anasarca has improved. further findings per report * Abdominal US (08/18/18): limited study. echogenic liver may be seen in hepatic parenchymal disease or fatty infiltrate. nodular hepatic contour. cholelithiasis. gallbladder wall thickening/pericholecystic edema. negative sonographic Cespedes's small abdominal ascites * Hepatitis Panel negative * Blood alcohol <10 * Patient notes he has drinking 3 shots of vodka X 30 years. Status: Acute (5) Diabetes mellitus 2 Assessment & Plan: * Hgba1c: 8.1 * Patient is off metformin given elevated lactic on admission * RISS ACHS * Accuchecks QAC and HS Status: Chronic (6) GE junction Mass Assessment & Plan: * Thoracic Surgery (Dr. Bro) on board-->help appreciated * GI (Dr. Aaron) on board-->help appreciated * CT Chest/Abdomen/pelvis (11/08/18): ascites, anasarca, interval loculated left pleural effusion, appearance of GE junction is indeterminate here a hiatal hernia vs mass * Patient is S/P Upper EGD on 11/12/18 and pathology from biopsy has confirmed Poorly Differentiated Squamous Cell CA * Heme/Oncologist Dr. Melody Paredes recommendation: outpatient PET Scan for staging and if NO mets then Chemo+Radiation and Surgical evaluation * Palliative Care Nurse Rosas is on board Status: Acute (7) Alcohol use Assessment & Plan: * Ciwa protocol * Aspiration precautions * Seizure precautions * Folic acid 1mg PO Daily * MVI tab PO daily * Thiamine 100mg PO daily * 3 shots of vodka X 30 years history * Monitor for withdrawal; patient is not currently in withdrawal * Abdominal US (08/18/18): limited study. Echogenic liver may be seen in hepatic parenchymal disease or fatty infiltrate. Nodular hepatic contour. cholelithiasis. Gallbladder wall thickening/pericholecystic edema. Negative sonographic Cespedes's small abdominal ascites Status: Acute (8) Tobacco use Assessment & Plan: * 1 ppd X30 years * Nicotine patch daily * Advised smoking cessation Status: Acute (9) Cachexia Assessment & Plan: * Related to alcohol, smoking, malnutrition, AND likely related to suspicious GE mass? Status: Acute (10) Ulcer of sacral region, stage 1 Assessment & Plan: * Wound Care Nurse Joseph Amaya is on board: Aloe Lupton and continue to turn patient every 2 hours * Exam on 11/16/18 continues to reveal nonblanchable erythema to the upper buttocks and lower sacrum with NO skin breakdown noted Status: Acute (11) Prophylactic measure Status: Acute * PT/OT eval * Protonix 40mg IV q12H * Full code * Lovenox 40mg subq daily for DVT ppx * Bilateral LE Venous Doppler 11/12/18: NO DVTs Disposition: Repeat Blood Culture 11/11/18: negative to date Repeat Urine Culture 11/14/18: shows NO growth Plan for Subacute Rehab ([facility]) once patient continues to tolerate PEG tube feedings (started on 11/16/18) and Left Chest Pigtail Catheter is removed Adult Protective Services through [facility] Nestor Sebastian D.O.
--- NOTE | 2018-11-16 08:11 | CP.PCM.PN ---
Subjective - Date & Time of Evaluation Date of Evaluation: 11/16/18 Time of Evaluation: 08:05 - Subjective Subjective: Progress Note for Dr. Patterson Patient seen and examined at bedside. He states he is comfortable and not in any respiratory distress. He is not short of breath, not uncomfortable. He is status post peg placement with GI yesterday. Objective - Vital Signs/Intake and Output Vital Signs (last 24 hours): Temp Pulse Resp BP Pulse Ox 98.3 F 84 20 120/74 97 11/16/18 07:22 11/16/18 07:22 11/16/18 07:22 11/16/18 07:22 11/16/18 07:22 Intake and Output: 11/16/18 11/16/18 06:59 18:59 Intake Total 70 Output Total 1153 Balance -1083 - Medications Medications: Current Medications Acetaminophen (Tylenol 325mg Tab) 650 mg PO Q6 PRN PRN Reason: Fever >100.4 F Albuterol/Ipratropium (Duoneb 3 Mg/0.5 Mg (3 Ml) Ud) 3 ml INH RQ6 [facility] Dextrose (Dextrose 50% Inj) 0 ml IV STAT PRN; Protocol PRN Reason: Hypoglycemia Protocol Dextrose (Glutose 15) 0 gm PO ONCE PRN; Protocol PRN Reason: Hypoglycemia Protocol Enoxaparin Sodium (Lovenox) 40 mg SC DAILY [facility] Fluconazole (Diflucan) 100 mg PO DAILY [facility]; Protocol Folic Acid (Folic Acid) 1 mg PO DAILY [facility] Glucagon (Glucagen Diagnostic Kit) 0 mg IM STAT PRN; Protocol PRN Reason: Hypoglycemia Protocol Piperacillin Sod/Tazobactam Sod (Zosyn 3.375 Gm Iv Premix) 3.375 gm in 50 mls @ 100 mls/hr IVPB Q6H [facility]; Protocol Last Admin: 11/16/18 02:37 Dose: 100 mls/hr Insulin Human Regular (Novolin R) 0 unit SC ACHS [facility]; Protocol Last Admin: 11/15/18 21:26 Dose: Not Given Lactobacillus Acidophilus (Lactobacillus) 1 cap PO Q12H [facility] Last Admin: 11/15/18 21:25 Dose: 1 cap Mirtazapine (Remeron) 15 mg PO HS [facility] Last Admin: 11/15/18 21:25 Dose: 15 mg Multivitamins (Hexavitamin) 1 tab PO DAILY [facility] Nicotine (Nicoderm Cq) 1 patch TD DAILY [facility] Pantoprazole Sodium (Protonix Ec Tab) 40 mg PO DAILY [facility] Sertraline HCl (Zoloft) 25 mg PO DAILY [facility] Sodium Chloride ([place] Baby Saline 30 Ml) 1 ml RODNEY BID [facility] Last Admin: 11/15/18 10:49 Dose: Not Given Thiamine HCl (Vitamin B1 Tab) 100 mg PO DAILY [facility] - Labs Labs: 11/14/18 07:50 11/14/18 07:50 PT 15.2 SECONDS (9.7-12.2) H 11/12/18 06:13 INR 1.4 11/12/18 06:13 APTT 29 SECONDS (21-34) 11/12/18 06:13 - Constitutional Appears: Well, No Acute Distress - Head Exam Head Exam: ATRAUMATIC, NORMOCEPHALIC - Eye Exam Eye Exam: EOMI, PERRL - ENT Exam ENT Exam: Mucous Membranes Dry - Neck Exam Neck Exam: Full ROM - Respiratory Exam Respiratory Exam: Decreased Breath Sounds Additional comments: Pigtail cath in place - Cardiovascular Exam Cardiovascular Exam: REGULAR RHYTHM, +S1, +S2 Additional comments: Peg in place - GI/Abdominal Exam GI & Abdominal Exam: Soft, Normal Bowel Sounds. absent: Tenderness - Extremities Exam Extremities Exam: absent: Calf Tenderness, Pedal Edema - Neurological Exam Neurological Exam: Alert, Awake, Oriented x3 - Skin Skin Exam: Dry, Intact, Warm Assessment and Plan - Assessment and Plan (Free Text) Assessment: 58 year old male with Empyema s/p thoracocentesis and pigtail placement on 11/09. Plan: Esophageal mass reveals poorly differentiated squamous cell carcinoma with PAS positive for fungal organisms EG junction biopsy reveals poorly differentiated squamous cell carcinoma with PAS positive for fungal organisms On Diflucan, Zosyn H pylori stain negative Pigtail remains off suction, on waterseal, output of 53cc x24 hours Continue Pain management. Continue Lovenox Dressing to site changed CXR tomorrow morning. Carisa Mayes, PGY1
[2018-11-16] MEDS: (Novolin R) Insulin Human Regular 100 units/ml vial SC SCH ×5 (09:13→22:42)
[2018-11-16 09:36] LABS: BASO # 0.1 K/uL (0.0-0.2); BASO % 1.2 % (0.0-2.0); EOS # 0.2 K/uL (0.0-0.7); EOS % 2.1 % (0.0-4.0); HEMOGLOBIN 8.4 g/dL (12.0-18.0); LYMPH # 1.1 K/uL (1.0-4.3); LYMPH % 9.8 % (20.0-40.0); MEAN CELL VOLUME 80.3 fL (80.0-94.0); MEAN CORPUSCULAR HEMOGLOBIN 26.1 pg (27.0-31.0); MEAN CORPUSCULAR HGB CONC 32.5 g/dL (33.0-37.0); MEAN PLATELET VOLUME 8.4 fL (7.2-11.7); MONO # 0.7 K/uL (0.0-0.8); MONO % 6.5 % (0.0-10.0); NEUT # 8.9 K/uL (1.8-7.0); NEUT % 80.4 % (50.0-75.0); PLATELET COUNT 176 K/uL (130-400); RBC 3.21 Mil/uL (4.40-5.90); RED CELL DISTRIBUTION WIDTH 18.3 % (11.5-14.5); WHITE BLOOD COUNT 11.1 K/uL (4.8-10.8)
[2018-11-16 09:55] LABS: ANISOCYTOSIS SLIGHT; BANDS 7 % (0-2); EOSINOPHIL 1 % (0-4); LYMPHOCYTE 9 % (20-40); MONOCYTE 8 % (0-10); NEUTROPHIL 75 % (50-75); PLATELET ESTIMATE NORMAL (NORMAL); POIKILOCYTOSIS SLIGHT; TARGET CELLS SLIGHT; TOTAL CELLS COUNTED 100
[2018-11-16 09:56] LABS: OVALOCYTES SLIGHT
[2018-11-16 09:57] LABS: HYPOCHROMIC MODERATE
[2018-11-16 10:06] LABS: ALB/GLOB RATIO 0.7 (1.0-2.1); ALBUMIN 2.2 g/dL (3.5-5.0); ALT/SGPT 20 U/L (21-72); AST/SGOT 11 U/L (17-59); BLOOD UREA NITROGEN 4 mg/dL (9-20); CALCIUM 10.1 mg/dl (8.6-10.4); GFR NON-AFRICAN AMERICAN > 60
--- NOTE | 2018-11-16 10:07 | CP.PCM.PN ---
<Anil Quintero - Last Filed: 11/16/18 13:01> Subjective - Date & Time of Evaluation Date of Evaluation: 11/16/18 Time of Evaluation: 10:05 - Subjective Subjective: GI Fellow PGY4, progress note. Patient had PEG placed yesterday. Tolerating FWF and meds via PEG. Denies drainage, pain at PEG site. No acute changes. Objective - Vital Signs/Intake and Output Vital Signs (last 24 hours): Temp Pulse Resp BP Pulse Ox 98.3 F 84 20 120/74 97 11/16/18 07:22 11/16/18 07:22 11/16/18 07:22 11/16/18 07:22 11/16/18 07:22 Intake and Output: 11/16/18 11/16/18 06:59 18:59 Intake Total 70 Output Total 1153 Balance -1083 - Medications Medications: Current Medications Acetaminophen (Tylenol 325mg Tab) 650 mg PO Q6 PRN PRN Reason: Fever >100.4 F Albuterol/Ipratropium (Duoneb 3 Mg/0.5 Mg (3 Ml) Ud) 3 ml INH RQ6 [facility] Dextrose (Dextrose 50% Inj) 0 ml IV STAT PRN; Protocol PRN Reason: Hypoglycemia Protocol Dextrose (Glutose 15) 0 gm PO ONCE PRN; Protocol PRN Reason: Hypoglycemia Protocol Enoxaparin Sodium (Lovenox) 40 mg SC DAILY [facility] Fluconazole (Diflucan) 100 mg PO DAILY [facility]; Protocol Folic Acid (Folic Acid) 1 mg PO DAILY [facility] Glucagon (Glucagen Diagnostic Kit) 0 mg IM STAT PRN; Protocol PRN Reason: Hypoglycemia Protocol Piperacillin Sod/Tazobactam Sod (Zosyn 3.375 Gm Iv Premix) 3.375 gm in 50 mls @ 100 mls/hr IVPB Q6H [facility]; Protocol Last Admin: 11/16/18 09:18 Dose: 100 mls/hr Insulin Human Regular (Novolin R) 0 unit SC ACHS [facility]; Protocol Last Admin: 11/16/18 09:13 Dose: 2 u Lactobacillus Acidophilus (Lactobacillus) 1 cap PO Q12H [facility] Last Admin: 11/15/18 21:25 Dose: 1 cap Mirtazapine (Remeron) 15 mg PO HS [facility] Last Admin: 11/15/18 21:25 Dose: 15 mg Multivitamins (Hexavitamin) 1 tab PO DAILY [facility] Nicotine (Nicoderm Cq) 1 patch TD DAILY [facility] Pantoprazole Sodium (Protonix Ec Tab) 40 mg PO DAILY [facility] Sertraline HCl (Zoloft) 25 mg PO DAILY [facility] Sodium Chloride ([place] Baby Saline 30 Ml) 1 ml RODNEY BID [facility] Last Admin: 11/15/18 10:49 Dose: Not Given Thiamine HCl (Vitamin B1 Tab) 100 mg PO DAILY [facility] - Labs Labs: 11/16/18 09:32 11/14/18 07:50 PT 15.2 SECONDS (9.7-12.2) H 11/12/18 06:13 INR 1.4 11/12/18 06:13 APTT 29 SECONDS (21-34) 11/12/18 06:13 - Constitutional Appears: Non-toxic, No Acute Distress - Eye Exam Eye Exam: EOMI, Normal appearance - Respiratory Exam Respiratory Exam: Clear to Ausculation Bilateral, NORMAL BREATHING PATTERN - Cardiovascular Exam Cardiovascular Exam: REGULAR RHYTHM, +S1, +S2 - GI/Abdominal Exam GI & Abdominal Exam: Soft, Normal Bowel Sounds. absent: Tenderness Additional comments: PEG site without discharge, bleeding, erythema. External bumper loosened from 2.5cm to 3.5cm. No skin tension present. - Extremities Exam Extremities Exam: Pedal Edema. absent: Tenderness - Neurological Exam Neurological Exam: Alert, Awake, Oriented x3 - Psychiatric Exam Psychiatric exam: Depressed, Normal Affect - Skin Skin Exam: Pallor, Warm Assessment and Plan - Assessment and Plan (Free Text) Assessment: 58 year old male with PMH of Diabetes presenting with weakness and fall. Recent discharge 08/25/18 due to sepsis with gram positive bacteremia. GI consultation for symptomatic acute on chronic anemia in setting of weakness, fall, and unintentional weight loss. No prior EGD or colonoscopy. #Acute Blood loss anemia due to bleeding esophageal mass #Squamous cell cancer of esophagus #Esophageal candidiasis. #ETOH cirrhosis #Empyema, left, possibly due to aspiration -11/09 left thoracentesis-purulent, empyema. 800 cc removed #Weight loss #Malnourished, severe #T2DM Plan: -11/12 EGD showed partially obstructing, large, friable, bleeding esophageal mass, ~11cm in length from mid-esophagus extending into the stomach. There was also possible kemar esophagitis. -Pathology shows poorly differentiated squamous cell CA, kemar. -11/15/18 s/p PEG placement -External bumper loosened to 3.5cm, no skin tension -[employer] consult, ok to start tube feeds. Needs high protein diet. Follow auto winder instructions. -FWF 30cc TID ordered -OK to have CLD -Oncology recommends PET/CT as outpatient -Continue PPI PO daily -Colonoscopy as an outpatient depending on clinical course. Case discussed with Dr. Aaron, see attestation. <Ramiro Aaron Y - Last Filed: 11/16/18 13:14> Objective - Vital Signs/Intake and Output Vital Signs (last 24 hours): Temp Pulse Resp BP Pulse Ox 98.3 F 84 20 120/74 97 11/16/18 07:22 11/16/18 07:22 11/16/18 07:22 11/16/18 07:22 11/16/18 07:22 Intake and Output: 11/16/18 11/16/18 06:59 18:59 Intake Total 70 Output Total 1153 Balance -1083 - Medications Medications: Current Medications Acetaminophen (Tylenol 325mg Tab) 650 mg PO Q6 PRN PRN Reason: Fever >100.4 F Albuterol/Ipratropium (Duoneb 3 Mg/0.5 Mg (3 Ml) Ud) 3 ml INH RQ6 [facility]ER Dextrose (Dextrose 50% Inj) 0 ml IV STAT PRN; Protocol PRN Reason: Hypoglycemia Protocol Dextrose (Glutose 15) 0 gm PO ONCE PRN; Protocol PRN Reason: Hypoglycemia Protocol Enoxaparin Sodium (Lovenox) 40 mg SC DAILY [facility] Last Admin: 11/16/18 10:30 Dose: 40 mg Fluconazole (Diflucan) 100 mg PO DAILY [facility]; Protocol Last Admin: 11/16/18 10:22 Dose: 100 mg Folic Acid (Folic Acid) 1 mg PO DAILY [facility] Last Admin: 11/16/18 10:21 Dose: 1 mg Glucagon (Glucagen Diagnostic Kit) 0 mg IM STAT PRN; Protocol PRN Reason: Hypoglycemia Protocol Piperacillin Sod/Tazobactam Sod (Zosyn 3.375 Gm Iv Premix) 3.375 gm in 50 mls @ 100 mls/hr IVPB Q6H [facility]; Protocol Last Admin: 11/16/18 09:18 Dose: 100 mls/hr Insulin Human Regular (Novolin R) 0 unit SC ACHS [facility]; Protocol Last Admin: 11/16/18 09:13 Dose: 2 u Lactobacillus Acidophilus (Lactobacillus) 1 cap PO Q12H [facility] Last Admin: 11/16/18 10:34 Dose: 1 cap Mirtazapine (Remeron) 15 mg PO HS [facility] Last Admin: 11/15/18 21:25 Dose: 15 mg Multivitamins (Hexavitamin) 1 tab PO DAILY [facility] Last Admin: 11/16/18 10:23 Dose: 1 tab Nicotine (Nicoderm Cq) 1 patch TD DAILY [facility] Last Admin: 11/16/18 10:23 Dose: 1 patch Pantoprazole Sodium (Protonix Ec Tab) 40 mg PO DAILY [facility] Last Admin: 11/16/18 10:38 Dose: 40 mg Sertraline HCl (Zoloft) 25 mg PO DAILY [facility] Last Admin: 11/16/18 11:07 Dose: 25 mg Sodium Chloride ([place] Baby Saline 30 Ml) 1 ml RODNEY BID [facility] Last Admin: 11/16/18 10:35 Dose: 1 spr Thiamine HCl (Vitamin B1 Tab) 100 mg PO DAILY [facility] Last Admin: 11/16/18 10:22 Dose: 100 mg - Labs Labs: 11/16/18 09:32 11/16/18 09:32 PT 15.2 SECONDS (9.7-12.2) H 11/12/18 06:13 INR 1.4 11/12/18 06:13 APTT 29 SECONDS (21-34) 11/12/18 06:13 Attending/Attestation - Attestation I have personally seen and examined this patient.: Yes I have fully participated in the care of the patient.: Yes I have reviewed all pertinent clinical information, including history, physical exam and plan: Yes Notes (Text): 11/16/18 13:11 I have seen and examined patient with GI fellow. No acute events overnight, he is seen resting in bed comfortably. He denies abdominal pain, nausea, vomiting, fever/chills. s/p PEG tube insertion yesterday, no pain at tube site. Review of vitals from today are normal. Squamous cell cancer of esophagus Anemia Dysphagia, s/p PEG placement Sepsis - empyema s/p chest tube DM - May begin tube feeding as tolerated, monitor for residuals - Flush PEG with 30 cc water q 8 hours - Follow up oncology recommendations - Continue with antibiotic therapy as per medical team - Patient would ultimately benefit from screening colonoscopy which can be scheduled electively as outpatient - No further planned GI intervention at this time, will sign off case. Please reconsult as necessary, thank you.
[2018-11-16] MEDS: Sodium Chloride Nasal 0.65% Soln (30ml) NAS SCH ×3 (10:19→18:32)
[2018-11-16] MEDS: Multiple Vitamins Tab PO SCH (10:23)
[2018-11-16] MEDS: Enoxaparin 40 mg Syringe SC SCH (10:30)
[2018-11-16] MEDS: Lactobacillus Acidophilus 500 MU Cap PO SCH ×2 (10:34→20:32)
[2018-11-16] MEDS: Pantoprazole 40 mg EC Tab PO SCH (10:38)
--- NOTE | 2018-11-16 15:54 | CP.PCM.PN ---
Subjective - Date & Time of Evaluation Date of Evaluation: 11/16/18 Time of Evaluation: 09:00 - Subjective Subjective: awake alert depressed NAD GT in place tolerating clear liquids chest tube in place Objective - Vital Signs/Intake and Output Vital Signs (last 24 hours): Temp Pulse Resp BP Pulse Ox 98.3 F 84 20 120/74 97 11/16/18 07:22 11/16/18 07:22 11/16/18 07:22 11/16/18 07:22 11/16/18 07:22 Intake and Output: 11/16/18 11/16/18 06:59 18:59 Intake Total 70 Output Total 1153 Balance -1083 - Medications Medications: Current Medications Acetaminophen (Tylenol 325mg Tab) 650 mg PO Q6 PRN PRN Reason: Fever >100.4 F Albuterol/Ipratropium (Duoneb 3 Mg/0.5 Mg (3 Ml) Ud) 3 ml INH RQ6 [facility] Last Admin: 11/16/18 13:37 Dose: 3 ml Dextrose (Dextrose 50% Inj) 0 ml IV STAT PRN; Protocol PRN Reason: Hypoglycemia Protocol Dextrose (Glutose 15) 0 gm PO ONCE PRN; Protocol PRN Reason: Hypoglycemia Protocol Enoxaparin Sodium (Lovenox) 40 mg SC DAILY [facility] Last Admin: 11/16/18 10:30 Dose: 40 mg Fluconazole (Diflucan) 100 mg PO DAILY [facility]; Protocol Last Admin: 11/16/18 10:22 Dose: 100 mg Folic Acid (Folic Acid) 1 mg PO DAILY [facility] Last Admin: 11/16/18 10:21 Dose: 1 mg Glucagon (Glucagen Diagnostic Kit) 0 mg IM STAT PRN; Protocol PRN Reason: Hypoglycemia Protocol Piperacillin Sod/Tazobactam Sod (Zosyn 3.375 Gm Iv Premix) 3.375 gm in 50 mls @ 100 mls/hr IVPB Q6H [facility]; Protocol Last Admin: 11/16/18 14:17 Dose: 100 mls/hr Insulin Human Regular (Novolin R) 0 unit SC ACHS [facility]; Protocol Last Admin: 11/16/18 14:17 Dose: 2 u Lactobacillus Acidophilus (Lactobacillus) 1 cap PO Q12H [facility] Last Admin: 11/16/18 10:34 Dose: 1 cap Mirtazapine (Remeron) 15 mg PO HS [facility] Last Admin: 11/15/18 21:25 Dose: 15 mg Multivitamins (Hexavitamin) 1 tab PO DAILY [facility] Last Admin: 11/16/18 10:23 Dose: 1 tab Nicotine (Nicoderm Cq) 1 patch TD DAILY [facility] Last Admin: 11/16/18 10:23 Dose: 1 patch Pantoprazole Sodium (Protonix Ec Tab) 40 mg PO DAILY [facility] Last Admin: 11/16/18 10:38 Dose: 40 mg Sertraline HCl (Zoloft) 25 mg PO DAILY [facility] Last Admin: 11/16/18 11:07 Dose: 25 mg Sodium Chloride ([place] Baby Saline 30 Ml) 1 ml RODNEY BID [facility] Last Admin: 11/16/18 10:35 Dose: 1 spr Thiamine HCl (Vitamin B1 Tab) 100 mg PO DAILY [facility] Last Admin: 11/16/18 10:22 Dose: 100 mg - Labs Labs: 11/16/18 09:32 11/16/18 09:32 PT 15.2 SECONDS (9.7-12.2) H 11/12/18 06:13 INR 1.4 11/12/18 06:13 APTT 29 SECONDS (21-34) 11/12/18 06:13 - Constitutional Appears: Non-toxic, Cachectic, Chronically Ill - Head Exam Head Exam: NORMOCEPHALIC - Eye Exam Eye Exam: absent: Scleral icterus - ENT Exam ENT Exam: Mucous Membranes Dry - Neck Exam Neck Exam: absent: Lymphadenopathy - Respiratory Exam Respiratory Exam: Decreased Breath Sounds, Clear to Ausculation Bilateral - Cardiovascular Exam Cardiovascular Exam: REGULAR RHYTHM, +S1, +S2 - GI/Abdominal Exam GI & Abdominal Exam: Distended, Soft. absent: Tenderness - Rectal Exam Rectal Exam: Deferred - Exam Exam: NORMAL INSPECTION - Extremities Exam Extremities Exam: absent: Pedal Edema - Back Exam Back Exam: absent: CVA tenderness (L), CVA tenderness (R), paraspinal tenderness - Neurological Exam Neurological Exam: Alert, Awake, CN II-XII Intact, Oriented x3 Neuro motor strength exam: Left Upper Extremity: 5, Right Upper Extremity: 5, Left Lower Extremity: 5, Right Lower Extremity: 5 - Psychiatric Exam Psychiatric exam: Depressed - Skin Skin Exam: Dry Assessment and Plan (1) Esophageal mass Status: Acute (2) Abnormal CT scan, chest Status: Acute (3) Alcohol use Status: Acute (4) Anemia Status: Acute (5) Cachexia Status: Acute (6) Pleural effusion Status: Acute (7) Sepsis Status: Acute (8) Cirrhosis Status: Acute (9) Diabetes mellitus Status: Acute (10) Gram negative sepsis Status: Acute (11) Squamous cell cancer of cardio-esophageal junction Status: Acute - Assessment and Plan (Free Text) Assessment: to start GT feeds in am out pt PET scan IV antibiotics to cont min [address] surgery and Oncology noted
[2018-11-17] MEDS: Albuterol-Ipratrop 3 mg / 0.5 (3 ml) UD INH SCH ×4 (02:10→19:39)
[2018-11-17] MEDS: Piperacill/Tazo 3.375gm in Dex 3.375 GM/50 ML BAG IVPB SCH ×2 (03:21→08:45)
[2018-11-17 07:07] LABS: BASO # 0.1 K/uL (0.0-0.2); BASO % 0.5 % (0.0-2.0); EOS # 0.3 K/uL (0.0-0.7); EOS % 2.6 % (0.0-4.0); HEMOGLOBIN 8.3 g/dL (12.0-18.0); LYMPH # 1.1 K/uL (1.0-4.3); LYMPH % 9.2 % (20.0-40.0); MEAN CELL VOLUME 80.6 fL (80.0-94.0); MEAN CORPUSCULAR HEMOGLOBIN 25.9 pg (27.0-31.0); MEAN CORPUSCULAR HGB CONC 32.1 g/dL (33.0-37.0); MEAN PLATELET VOLUME 8.3 fL (7.2-11.7); MONO # 0.8 K/uL (0.0-0.8); MONO % 6.8 % (0.0-10.0); NEUT % 80.9 % (50.0-75.0); PLATELET COUNT 184 K/uL (130-400); RBC 3.21 Mil/uL (4.40-5.90); RED CELL DISTRIBUTION WIDTH 18.1 % (11.5-14.5); WHITE BLOOD COUNT 12.4 K/uL (4.8-10.8)
[2018-11-17 07:29] LABS: ALB/GLOB RATIO 0.7 (1.0-2.1); ALBUMIN 2.2 g/dL (3.5-5.0); ALT/SGPT 10 U/L (21-72); AST/SGOT 15 U/L (17-59); BLOOD UREA NITROGEN 4 mg/dL (9-20); CALCIUM 10.4 mg/dl (8.6-10.4); GFR NON-AFRICAN AMERICAN > 60
--- NOTE | 2018-11-17 08:11 | CP.PCM.PN ---
Subjective - Date & Time of Evaluation Date of Evaluation: 11/17/18 Time of Evaluation: 08:00 - Subjective Subjective: Hospitalist Progress Note Patient was seen and examined at 8:00 AM 11/17/18 Patient underwent EGD on Monday11/12/18 and biopsy was taken of mass extending from GE into the Stomach. 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 Melody Paredes are on board. EGD biopsy PAS Stain also indicated Mallory: Diflucan 100 mg PO 1x/day started by GI 11/14/18 and this should be continued for 21 days through 12/05/18. At this time I do NOT believe that patient is a good surgical candidate for surgery considering the Assessment and Plan #1 below. Heme/Oncologist Dr. Melody Paredes recommendation: outpatient PET Scan for staging and if NO mets then Chemo+Radiation and Surgical evaluation Patient will also need a source of nutrition and therefore PEG Tube was recommended by GI Dr. Aaron. Patient agreed to have this placed and this was performed 11/15/16. Financial Reporting Consultant has seen patient 11/16/18 and the following has been recommended: Glucerna 1.5 bolus feeding 6x per day with 250 ml Free Water Flush Q6H. GI has ordered the PEG Tube feedings. Patient had Right PICC Line placed 11/14/18 as he will need extermination supervisor antibiotic for the Bacteremia, UTI, and Pleural Fluid/Empyema (see Assessment and Plan #1 below). VATS procedure was placed on hold by Surgery Team (originally planned for 11/12/18). CT Chest 11/12/18: moderate left sided hydropneumothorax, moderate right pleural effusion, bilateral lower lobe consolidations, mediastinal lymphadenopathy, moderate hiatal hernia with gastric wall thickening Pigtail Catheter Left Chest was taken off suction and placed on water seal 11/14 and Surgery Team has ordered daily Chest X Rays which have shown continued improvement in the Left Pleural Effusion. Surgery Team to plan for removal of pigtail catheter left chest Patient's primary contact and decision maker should he not be able to make decisions on his own is Sister Korin (Home# [phone], ). Spoke with Korin at length via phone on evening 11/15/18 and explained recently developements and plan of care. She explained that patient's home is filthy and packed with garbage/newspapers/empty alcohol bottles and does not feel patient will be able to care for himself. I spoke with Psychiatrist Dr. Xiao 11/16/18 and informed him of the patient's home living situation and he will see patient again on 11/19/18. Videotape Operator Minnie was notified of Korin's concerns and [facility] would notify Adult Protective Services once he is discharge to [facility]. Palliative Care is already on board, but Korin would like assistance in speaking with patient concerning his Will/Testament and I have asked Palliative Care Nurse Rosas to speak with the patient when she is back on 11/19/18. Upon FULL ROS: NO chest pain at the left pigtail catheter insertion site only if he lays on this side There is some soreness at the PEG tube insertion site NO SOB/Cough/Wheezing NO abdominal pain NO n/v/d His last bowel movement was on evening of 11/16/18 and he states that it was soft NO other complaints upon FULL ROS Exam: General: Resting comfortably and in NO distress HEENT: NCA, EOMI, PERRLA, NO pharyngeal erythema/exudate, NO lymphadenopathy Cardio: NS1 and NS2, NO M/R/G Resp: Decreased breath sounds on the left lower lung field continue to improve GI: BSx4, Soft, ND, NO HSM, NO guarding/rebound tenderness. PEG Tube insertion site without any surrounding signs of cellulitis Ext: Pulses are strong and equal, Capillary Refill is 2 seconds, 1+ Pitting Edema bilateral lower legs from ankles to midtibia has improved Neuro: CN II through XII are grossly intact Skin: Nonblanchable erythema upper buttocks and lower sacrum without any skin breakdown Assessment and Plan (1) Sepsis Urinary tract infection Bacteremia Empyema Assessment & Plan: * Code sepsis 11/08/18 * Infectious Disease (Dr. Bojorquez) on board-->help appreciated * Criteria: leukocytosis, hypotension, bandemia, hypothermia, source of i nfections: empyema, uti, bacteremia * Lactic acid: 3.5-->1.7 * elevated procalcitonin: 1.49-->0.83 on 11/11/18 * Blood culture (11/08/18): Klebsiella pneumoniae * Sensitive to Zosyn with LUPE of less than 4 * Repeat Blood culture (11/11/18): finalized as negative at 5 days * Urine culture (11/08/18): Enterococcus Faecalis * Repeat Urine Culture (11/15/18): NO growth * MRSA (11/08/18): not detected * Pleural fluid (11/09/18): no acid fast bacilli * Pleural fluid (11/09/18): Streptococcus anginosus which is sensitive to Vancomycin which the patient was restarted on 11/11/18 * Chest xray (11/08/18): layering left pleural effusion and/or consolidation * Chest xray (11/09/18): slight increase in left perihilar/basilar opacity. small left pleural effusion, grossly unchanged * Iv abx: * Zosyn 3.375 g IV Q6H (active since 11/08/18) * Vancomycin 1 gram IV Q12 (11/08/18 through 11/11/18): spoke with ID Dr. Bojorquez 11/12/18: Zosyn will cover the Klebsiella, Streptococcus and the Enterococcus * CT Chest 11/12/18: moderate left sided hydropneumothorax, moderate right pleural effusion, bilateral lower lobe consolidations, mediastinal lymphadenopathy, mo derate hiatal hernia with gastric wall thickening Status: Acute (2) Empyema; Loculated Left Pleural effusion Assessment & Plan: * Thoracic Surgery (Dr. Bro) on board-->help appreciated * VATS procedure cancelled on 11/12/18 * Repeat CT Chest ordered 11/12/18 * Chest xray (11.08.18): layering left pleural effusion and/or consolidation * Chest xray (11/09/18): slight increase in left perihilar/basilar opacity. small left pleural effusion, grossly unchanged * S/P IR thoracentesis 11/09/18; placement of pigtail catheter * Pleural fluid (11/09/18): Streptococcus anginosus which is sensitive to Vancomycin which the patient was restarted on 11/11/18 * Pleural fluid (11/09/18): moderate PMNs, moderate gram positive cocci * Echocardiogram (08/20/18): left ventricular function is normal, left ventricular ejection fraction is within the the normal range about 55%, mild mitral valve regurgitation noted Status: Acute (3) Anemia Assessment & Plan: * Thoracic Surgery (Dr. Bor) on board-->help appreciated * GI (Dr. Aaron) on board-->help appreciated * Likely secondary to the suspicious mass found on EGD performed on 11/12/18? * On admission: hgb 10-->5 * blood transfusion consent obtained by resident 11/08/18 * given 3 units of PRBC overnight night and 1 FFP unit * rectal negative * ferritin low * iron low: will not repleat at this time considering multiple infections as documented in Assessment/Plan #1 * tibc: 148 low * transferrin low * Stable 8.6 since blood transfusion 11/08/18 * Reticulocyte count: 2.2--> reticulocyte index: 0.12-->hypoproliferation <2 * Folate low * B12: 967 (low) * Occult blood: negative * CT Chest/Abdomen/pelvis (11/08/18): ascites, anasarca, interval loculated left pleural effusion, appearance of GE junction is indeterminate here a hiatal h ernia vs mass Status: Acute (4) Cirrhosis Assessment & Plan: * GI (Dr. Aaron) on board-->help appreciated * CT Chest/Abdomen/pelvis IV contrast (11/08/18): prior amount of ascites and anasarca has improved. further findings per report * Abdominal US (08/18/18): limited study. echogenic liver may be seen in hepatic parenchymal disease or fatty infiltrate. nodular hepatic contour. cholelithiasis. gallbladder wall thickening/pericholecystic edema. negative sonographic Cespedes's small abdominal ascites * Hepatitis Panel negative * Blood alcohol <10 * Patient notes he has drinking 3 shots of vodka X 30 years. Status: Acute (5) Diabetes mellitus 2 Assessment & Plan: * Hgba1c: 8.1 * Patient is off metformin given elevated lactic on admission * RISS ACHS * Accuchecks QAC and HS Status: Chronic (6) GE junction Mass Assessment & Plan: * Thoracic Surgery (Dr. Bro) on board-->help appreciated * GI (Dr. Aaron) on board-->help appreciated * CT Chest/Abdomen/pelvis (11/08/18): ascites, anasarca, interval loculated left pleural effusion, appearance of GE junction is indeterminate here a hiatal hernia vs mass * Patient is S/P Upper EGD on 11/12/18 and pathology from biopsy has confirmed Poorly Differentiated Squamous Cell CA * Heme/Oncologist Dr. Melody Paredes recommendation: outpatient PET Scan for staging and if NO mets then Chemo+Radiation and Surgical evaluation * Palliative Care Nurse Rosas is on board Status: Acute (7) Alcohol use Assessment & Plan: * Ciwa protocol * Aspiration precautions * Seizure precautions * Folic acid 1mg PO Daily * MVI tab PO daily * Thiamine 100mg PO daily * 3 shots of vodka X 30 years history * Monitor for withdrawal; patient is not currently in withdrawal * Abdominal US (08/18/18): limited study. Echogenic liver may be seen in hepatic parenchymal disease or fatty infiltrate. Nodular hepatic contour. cholelith iasis. Gallbladder wall thickening/pericholecystic edema. Negative sonographic Cespedes's small abdominal ascites Status: Acute (8) Tobacco use Assessment & Plan: * 1 ppd X30 years * Nicotine patch daily * Advised smoking cessation Status: Acute (9) Cachexia Assessment & Plan: * Related to alcohol, smoking, malnutrition, AND likely related to suspicious GE mass? Status: Acute (10) Ulcer of sacral region, stage 1 Assessment & Plan: * Wound Care Nurse Jsoeph Amaya is on board: Philipoe [place] and continue to turn patient every 2 hours * Exam on 11/16/18 continues to reveal nonblanchable erythema to the upper b uttocks and lower sacrum with NO skin breakdown noted Status: Acute (11) Prophylactic measure Status: Acute * PT/OT eval * Protonix 40mg IV q12H * Full code * Lovenox 40mg subq daily for DVT ppx * Bilateral LE Venous Doppler 11/12/18: NO DVTs Disposition: Repeat Blood Culture 11/11/18: negative to date Repeat Urine Culture 11/14/18: shows NO growth Will need length of antibiotic (Zosyn) from ID Plan for Subacute Rehab ([facility]) once patient continues to tolerate PEG tube feedings (started on 11/16/18) and Left Chest Pigtail Catheter is removed Adult Protective Services through [facility] Plan of care has been explained to patient and to Nurse Mary who is caring for patient 11/17/18. Enstor J. Sebastian, D.O. Objective - Vital Signs/Intake and Output Vital Signs (last 24 hours): Temp Pulse Resp BP Pulse Ox 97.9 F 78 20 134/77 100 11/16/18 23:10 11/17/18 03:35 11/16/18 23:10 11/16/18 23:10 11/16/18 23:10 Intake and Output: 11/17/18 11/17/18 06:59 18:59 Intake Total 740 Output Total 505 Balance 235 - Medications Medications: Current Medications Acetaminophen (Tylenol 325mg Tab) 650 mg PO Q6 PRN PRN Reason: Fever >100.4 F Albuterol/Ipratropium (Duoneb 3 Mg/0.5 Mg (3 Ml) Ud) 3 ml INH RQ6 [facility] Last Admin: 11/17/18 07:53 Dose: 3 ml Dextrose (Dextrose 50% Inj) 0 ml IV STAT PRN; Protocol PRN Reason: Hypoglycemia Protocol Dextrose (Glutose 15) 0 gm PO ONCE PRN; Protocol PRN Reason: Hypoglycemia Protocol Enoxaparin Sodium (Lovenox) 40 mg SC DAILY [facility] Last Admin: 11/16/18 10:30 Dose: 40 mg Fluconazole (Diflucan) 100 mg PO DAILY [facility]; Protocol Last Admin: 11/16/18 10:22 Dose: 100 mg Folic Acid (Folic Acid) 1 mg PO DAILY [facility] Last Admin: 11/16/18 10:21 Dose: 1 mg Glucagon (Glucagen Diagnostic Kit) 0 mg IM STAT PRN; Protocol PRN Reason: Hypoglycemia Protocol Piperacillin Sod/Tazobactam Sod (Zosyn 3.375 Gm Iv Premix) 3.375 gm in 50 mls @ 100 mls/hr IVPB Q6H EDER; Protocol Last Admin: 11/17/18 03:21 Dose: 100 mls/hr Insulin Human Regular (Novolin R) 0 unit SC ACHS [facility]; Protocol Last Admin: 11/16/18 21:52 Dose: Not Given Lactobacillus Acidophilus (Lactobacillus) 1 cap PO Q12H [facility] Last Admin: 11/16/18 20:32 Dose: 1 cap Mirtazapine (Remeron) 15 mg PO HS [facility] Last Admin: 11/16/18 22:20 Dose: 15 mg Multivitamins (Hexavitamin) 1 tab PO DAILY [facility] Last Admin: 11/16/18 10:23 Dose: 1 tab Nicotine (Nicoderm Cq) 1 patch TD DAILY [facility] Last Admin: 11/16/18 10:23 Dose: 1 patch Pantoprazole Sodium (Protonix Ec Tab) 40 mg PO DAILY [facility] Last Admin: 11/16/18 10:38 Dose: 40 mg Sertraline HCl (Zoloft) 25 mg PO DAILY [facility] Last Admin: 11/16/18 11:07 Dose: 25 mg Sodium Chloride ([place] Baby Saline 30 Ml) 1 ml RODNEY BID [facility] Last Admin: 11/16/18 18:32 Dose: 1 spr Thiamine HCl (Vitamin B1 Tab) 100 mg PO DAILY [facility] Last Admin: 11/16/18 10:22 Dose: 100 mg - Labs Labs: 11/17/18 06:53 11/17/18 06:53 PT 15.2 SECONDS (9.7-12.2) H 11/12/18 06:13 INR 1.4 11/12/18 06:13 APTT 29 SECONDS (21-34) 11/12/18 06:13
[2018-11-17] MEDS: (Novolin R) Insulin Human Regular 100 units/ml vial SC SCH ×4 (08:30→21:55)
--- NOTE | 2018-11-17 08:36 | CP.PCM.PN ---
Subjective - Date & Time of Evaluation Date of Evaluation: 11/17/18 Time of Evaluation: 07:05 - Subjective Subjective: Cardiothoracic surgery progress note for Dr. Patterson Patient states he is feeling well this morning and denies SOB. Patient denies pain at the chest tube site. CT with 0 output overnight. Objective - Vital Signs/Intake and Output Vital Signs (last 24 hours): Temp Pulse Resp BP Pulse Ox 97.9 F 78 20 134/77 100 11/16/18 23:10 11/17/18 03:35 11/16/18 23:10 11/16/18 23:10 11/16/18 23:10 Intake and Output: 11/17/18 11/17/18 06:59 18:59 Intake Total 740 Output Total 505 Balance 235 - Medications Medications: Current Medications Acetaminophen (Tylenol 325mg Tab) 650 mg PO Q6 PRN PRN Reason: Fever >100.4 F Albuterol/Ipratropium (Duoneb 3 Mg/0.5 Mg (3 Ml) Ud) 3 ml INH RQ6 EDER Last Admin: 11/17/18 07:53 Dose: 3 ml Dextrose (Dextrose 50% Inj) 0 ml IV STAT PRN; Protocol PRN Reason: Hypoglycemia Protocol Dextrose (Glutose 15) 0 gm PO ONCE PRN; Protocol PRN Reason: Hypoglycemia Protocol Enoxaparin Sodium (Lovenox) 40 mg SC DAILY [facility] Last Admin: 11/16/18 10:30 Dose: 40 mg Fluconazole (Diflucan) 100 mg PO DAILY [facility]; Protocol Last Admin: 11/16/18 10:22 Dose: 100 mg Folic Acid (Folic Acid) 1 mg PO DAILY [facility] Last Admin: 11/16/18 10:21 Dose: 1 mg Glucagon (Glucagen Diagnostic Kit) 0 mg IM STAT PRN; Protocol PRN Reason: Hypoglycemia Protocol Piperacillin Sod/Tazobactam Sod (Zosyn 3.375 Gm Iv Premix) 3.375 gm in 50 mls @ 100 mls/hr IVPB Q6H EDER; Protocol Last Admin: 11/17/18 03:21 Dose: 100 mls/hr Insulin Human Regular (Novolin R) 0 unit SC ACHS [facility]ER; Protocol Last Admin: 11/16/18 21:52 Dose: Not Given Lactobacillus Acidophilus (Lactobacillus) 1 cap PO Q12H [facility] Last Admin: 11/16/18 20:32 Dose: 1 cap Mirtazapine (Remeron) 15 mg PO HS [facility] Last Admin: 11/16/18 22:20 Dose: 15 mg Multivitamins (Hexavitamin) 1 tab PO DAILY [facility] Last Admin: 11/16/18 10:23 Dose: 1 tab Nicotine (Nicoderm Cq) 1 patch TD DAILY [facility] Last Admin: 11/16/18 10:23 Dose: 1 patch Pantoprazole Sodium (Protonix Ec Tab) 40 mg PO DAILY [facility] Last Admin: 11/16/18 10:38 Dose: 40 mg Sertraline HCl (Zoloft) 25 mg PO DAILY [facility] Last Admin: 11/16/18 11:07 Dose: 25 mg Sodium Chloride ([place] Baby Saline 30 Ml) 1 ml RODNEY BID [facility] Last Admin: 11/16/18 18:32 Dose: 1 spr Thiamine HCl (Vitamin B1 Tab) 100 mg PO DAILY [facility] Last Admin: 11/16/18 10:22 Dose: 100 mg - Labs Labs: 11/17/18 06:53 11/17/18 06:53 PT 15.2 SECONDS (9.7-12.2) H 11/12/18 06:13 INR 1.4 11/12/18 06:13 APTT 29 SECONDS (21-34) 11/12/18 06:13 - Constitutional Appears: Well, Non-toxic, No Acute Distress - Head Exam Head Exam: ATRAUMATIC, NORMOCEPHALIC - Eye Exam Eye Exam: EOMI - ENT Exam ENT Exam: Mucous Membranes Moist - Respiratory Exam Respiratory Exam: NORMAL BREATHING PATTERN. absent: Accessory Muscle Use, Chest Wall Tenderness Additional comments: pigtail chest tube in plce - Cardiovascular Exam Cardiovascular Exam: REGULAR RHYTHM - GI/Abdominal Exam GI & Abdominal Exam: Soft. absent: Tenderness - Extremities Exam Extremities Exam: absent: Calf Tenderness, Pedal Edema - Neurological Exam Neurological Exam: Alert, Awake, Oriented x3 - Psychiatric Exam Psychiatric exam: Normal Affect, Normal Mood - Skin Skin Exam: Dry, Intact, Normal Color, Warm Assessment and Plan - Assessment and Plan (Free Text) Assessment: 58 year old male with Empyema s/p thoracentesis and pigtail placement on 11/09, POD 8 Plan: -continue abx per ID recs - Pigtail remains off suction, on waterseal, output of 8cc x24 hours -Continue Pain management. -Continue Lovenox -f/u CXR read this am for possible tube removal Stella Kennedy, PGY1
--- NOTE | 2018-11-17 08:50 | CP.PCM.PN ---
Subjective - Date & Time of Evaluation Date of Evaluation: 11/16/18 Time of Evaluation: 19:40 - Subjective Subjective: Patient seen and examined at bedside. No cardiac events noted Denies chest pain Physical Examination - Constitutional Appears: Unkempt, Cachectic - Head Exam Head Exam: NORMAL INSPECTION - Eye Exam Eye Exam: EOMI - ENT Exam ENT Exam: Mucous Membranes Moist - Respiratory Exam Respiratory Exam: Decreased Breath Sounds, Rhonchi, NORMAL BREATHING PATTERN. absent: Stridor - Cardiovascular Exam Cardiovascular Exam: REGULAR RHYTHM, +S1, +S2 - GI/Abdominal Exam GI & Abdominal Exam: Soft, Normal Bowel Sounds. absent: Distended, Firm, Gu arding, Rigid, Tenderness, Rebound - Extremities Exam Extremities Exam: Pedal Edema (ankle pitting bilateral). absent: Tenderness - Neurological Exam Neurological Exam: Alert, Awake, Oriented x3 - Skin Skin Exam: Dry, Pallor, Warm Objective - Vital Signs/Intake and Output Vital Signs (last 24 hours): Temp Pulse Resp BP Pulse Ox 97.9 F 78 20 134/77 100 11/16/18 23:10 11/17/18 03:35 11/16/18 23:10 11/16/18 23:10 11/16/18 23:10 Intake and Output: 11/17/18 11/17/18 06:59 18:59 Intake Total 740 Output Total 505 Balance 235 - Medications Medications: Current Medications Acetaminophen (Tylenol 325mg Tab) 650 mg PO Q6 PRN PRN Reason: Fever >100.4 F Albuterol/Ipratropium (Duoneb 3 Mg/0.5 Mg (3 Ml) Ud) 3 ml INH RQ6 [facility] Last Admin: 11/17/18 07:53 Dose: 3 ml Dextrose (Dextrose 50% Inj) 0 ml IV STAT PRN; Protocol PRN Reason: Hypoglycemia Protocol Dextrose (Glutose 15) 0 gm PO ONCE PRN; Protocol PRN Reason: Hypoglycemia Protocol Enoxaparin Sodium (Lovenox) 40 mg SC DAILY [facility] Last Admin: 11/16/18 10:30 Dose: 40 mg Fluconazole (Diflucan) 100 mg PO DAILY [facility]; Protocol Last Admin: 11/16/18 10:22 Dose: 100 mg Folic Acid (Folic Acid) 1 mg PO DAILY [facility] Last Admin: 11/16/18 10:21 Dose: 1 mg Glucagon (Glucagen Diagnostic Kit) 0 mg IM STAT PRN; Protocol PRN Reason: Hypoglycemia Protocol Piperacillin Sod/Tazobactam Sod (Zosyn 3.375 Gm Iv Premix) 3.375 gm in 50 mls @ 100 mls/hr IVPB Q6H [facility]; Protocol Last Admin: 11/17/18 03:21 Dose: 100 mls/hr Insulin Human Regular (Novolin R) 0 unit SC ACHS [facility]; Protocol Last Admin: 11/16/18 21:52 Dose: Not Given Lactobacillus Acidophilus (Lactobacillus) 1 cap PO Q12H [facility] Last Admin: 11/16/18 20:32 Dose: 1 cap Mirtazapine (Remeron) 15 mg PO HS [facility] Last Admin: 11/16/18 22:20 Dose: 15 mg Multivitamins (Hexavitamin) 1 tab PO DAILY [facility] Last Admin: 11/16/18 10:23 Dose: 1 tab Nicotine (Nicoderm Cq) 1 patch TD DAILY [facility] Last Admin: 11/16/18 10:23 Dose: 1 patch Pantoprazole Sodium (Protonix Ec Tab) 40 mg PO DAILY [facility] Last Admin: 11/16/18 10:38 Dose: 40 mg Sertraline HCl (Zoloft) 25 mg PO DAILY [facility] Last Admin: 11/16/18 11:07 Dose: 25 mg Sodium Chloride ([place] Baby Saline 30 Ml) 1 ml RODNEY BID [facility] Last Admin: 11/16/18 18:32 Dose: 1 spr Thiamine HCl (Vitamin B1 Tab) 100 mg PO DAILY [facility] Last Admin: 11/16/18 10:22 Dose: 100 mg - Labs Labs: 11/17/18 06:53 11/17/18 06:53 PT 15.2 SECONDS (9.7-12.2) H 11/12/18 06:13 INR 1.4 11/12/18 06:13 APTT 29 SECONDS (21-34) 11/12/18 06:13 Assessment and Plan - Assessment and Plan (Free Text) Assessment: (1) Sepsis Urinary tract infection Bacteremia Empyema Assessment & Plan: * Code sepsis 11/08/18 * Infectious Disease (Dr. Bojorquez) on board-->help appreciated * Criteria: leukocytosis, hypotension, bandemia, hypothermia, source of infections: empyema, uti, bacteremia * Lactic acid: 3.5-->1.7 * elevated procalcitonin: 1.49-->0.83 on 11/11/18 * Blood culture (11/08/18): Klebsiella pneumoniae * Sensitive to Zosyn with LUPE of less than 4 * Repeat Blood culture (11/11/18): finalized as negative at 5 days * Urine culture (11/08/18): Enterococcus Faecalis * Repeat Urine Culture (11/15/18): NO growth * MRSA (11/08/18): not detected * Pleural fluid (11/09/18): no acid fast bacilli * Pleural fluid (11/09/18): Streptococcus anginosus which is sensitive to Vancomycin which the patient was restarted on 11/11/18 * Chest xray (11/08/18): layering left pleural effusion and/or consolidation * Chest xray (11/09/18): slight increase in left perihilar/basilar opacity. small left pleural effusion, grossly unchanged * Iv abx: * Zosyn 3.375 g IV Q6H (active since 11/08/18) * Vancomycin 1 gram IV Q12 (11/08/18 through 11/11/18): spoke with ID Dr. Bojorquez 11/12/18: Zosyn will cover the Klebsiella, Streptococcus and the Enterococcus * CT Chest 11/12/18: moderate left sided hydropneumothorax, moderate right pleural effusion, bilateral lower lobe consolidations, mediastinal lymphadenopathy, moderate hiatal hernia with gastric wall thickening Status: Acute (2) Empyema; Loculated Left Pleural effusion Assessment & Plan: * Thoracic Surgery (Dr. Bro) on board-->help appreciated * VATS procedure cancelled on 11/12/18 * Repeat CT Chest ordered 11/12/18 * Chest xray (11.08.18): layering left pleural effusion and/or consolidation * Chest xray (11/09/18): slight increase in left perihilar/basilar opacity. small left pleural effusion, grossly unchanged * S/P IR thoracentesis 11/09/18; placement of pigtail catheter * Pleural fluid (11/09/18): Streptococcus anginosus which is sensitive to Vancomycin which the patient was restarted on 11/11/18 * Pleural fluid (11/09/18): moderate PMNs, moderate gram positive cocci * Echocardiogram (08/20/18): left ventricular function is normal, left ventricular ejection fraction is within the the normal range about 55%, mild mitral valve regurgitation noted Status: Acute (3) Anemia Assessment & Plan: * Thoracic Surgery (Dr. Bro) on board-->help appreciated * GI (Dr. Aaron) on board-->help appreciated * Likely secondary to the suspicious mass found on EGD performed on 11/12/18? * On admission: hgb 10-->5 * blood transfusion consent obtained by resident 11/08/18 * given 3 units of PRBC overnight night and 1 FFP unit * rectal negative * ferritin low * iron low: will not repleat at this time considering multiple infections as documented in Assessment/Plan #1 * tibc: 148 low * transferrin low * Stable 8.6 since blood transfusion 11/08/18 * Reticulocyte count: 2.2--> reticulocyte index: 0.12-->hypoproliferation <2 * Folate low * B12: 967 (low) * Occult blood: negative * CT Chest/Abdomen/pelvis (11/08/18): ascites, anasarca, interval loculated left pleural effusion, appearance of GE junction is indeterminate here a hiatal hernia vs mass Status: Acute (4) Cirrhosis Assessment & Plan: * GI (Dr. Aaron) on board-->help appreciated * CT Chest/Abdomen/pelvis IV contrast (11/08/18): prior amount of ascites and anasarca has improved. further findings per report * Abdominal US (08/18/18): limited study. echogenic liver may be seen in hepatic p arenchymal disease or fatty infiltrate. nodular hepatic contour. cholelithiasis. gallbladder wall thickening/pericholecystic edema. negative sonographic Cespedse's small abdominal ascites * Hepatitis Panel negative * Blood alcohol <10 * Patient notes he has drinking 3 shots of vodka X 30 years. Status: Acute (5) Diabetes mellitus 2 Assessment & Plan: * Hgba1c: 8.1 * Patient is off metformin given elevated lactic on admission * RISS ACHS * Accuchecks QAC and HS Status: Chronic (6) GE junction Mass Assessment & Plan: * Thoracic Surgery (Dr. Bro) on board-->help appreciated * GI (Dr. Aaron) on board-->help appreciated * CT Chest/Abdomen/pelvis (11/08/18): ascites, anasarca, interval loculated left pleural effusion, appearance of GE junction is indeterminate here a hiatal hernia vs mass * Patient is S/P Upper EGD on 11/12/18 and pathology from biopsy has confirmed Poorly Differentiated Squamous Cell CA * Heme/Oncologist Dr. Melody Paredes recommendation: outpatient PET Scan for staging and if NO mets then Chemo+Radiation and Surgical evaluation * Palliative Care Nurse Rosas is on board Status: Acute (7) Alcohol use Assessment & Plan: * Ciwa protocol * Aspiration precautions * Seizure precautions * Folic acid 1mg PO Daily * MVI tab PO daily * Thiamine 100mg PO daily * 3 shots of vodka X 30 years history * Monitor for withdrawal; patient is not currently in withdrawal * Abdominal US (08/18/18): limited study. Echogenic liver may be seen in hepatic parenchymal disease or fatty infiltrate. Nodular hepatic contour. cholelithiasis. Gallbladder wall thickening/pericholecystic edema. Negative sonographic Cespedes's small abdominal ascites Status: Acute (8) Tobacco use Assessment & Plan: * 1 ppd X30 years * Nicotine patch daily * Advised smoking cessation Status: Acute (9) Cachexia Assessment & Plan: * Related to alcohol, smoking, malnutrition, AND likely related to suspicious GE mass? Status: Acute (10) Ulcer of sacral region, stage 1 Assessment & Plan: * Wound Care Nurse Joseph Amaya is on board: [facility] [place] and continue to turn patient every 2 hours * Exam on 11/16/18 continues to reveal nonblanchable erythema to the upper buttocks and lower sacrum with NO skin breakdown noted Status: Acute (11) Prophylactic measure Status: Acute * PT/OT eval * Protonix 40mg IV q12H * Full code * Lovenox 40mg subq daily for DVT ppx * Bilateral LE Venous Doppler 11/12/18: NO DVTs Disposition: Repeat Blood Culture 11/11/18: negative to date Repeat Urine Culture 11/14/18: shows NO growth Plan for Subacute Rehab ([facility]) once patient continues to tolerate PEG tube feedings (started on 11/16/18) and Left Chest Pigtail Catheter is removed Adult Protective Services through [facility]
[2018-11-17] MEDS: Multiple Vitamins Tab PO SCH (09:40)
[2018-11-17] MEDS: Enoxaparin 40 mg Syringe SC SCH (09:41)
[2018-11-17] MEDS: Lactobacillus Acidophilus 500 MU Cap PO SCH ×2 (09:41→21:57)
[2018-11-17] MEDS: Sodium Chloride Nasal 0.65% Soln (30ml) NAS SCH ×2 (09:49→17:37)
[2018-11-17] MEDS: Pantoprazole 40 mg EC Tab PO SCH (09:49)
[2018-11-17 10:48] LABS: BANDS 4 % (0-2); LYMPHOCYTE 9 % (20-40); MONOCYTE 5 % (0-10); NEUTROPHIL 82 % (50-75); PLATELET ESTIMATE NORMAL (NORMAL); TOTAL CELLS COUNTED 100
[2018-11-17 10:51] LABS: HYPOCHROMIC MODERATE; POLYCHROMIC SLIGHT
[2018-11-17 10:52] LABS: OVALOCYTES SLIGHT; POIKILOCYTOSIS SLIGHT
[2018-11-17 10:53] LABS: ANISOCYTOSIS MODERATE; LARGE PLATELETS PRESENT
[2018-11-17 10:54] LABS: MICROCYTOSIS SLIGHT
--- NOTE | 2018-11-17 14:48 | RAD ---
Date of service: 11/17/2018 HISTORY: hx of empyema, pigtail. COMPARISON: Comparison is made with 11/15/2018 TECHNIQUE: 1 view obtained. FINDINGS: LUNGS: Left lung base opacity is again noted. PLEURA: Left pleural effusion and blunting of the costophrenic angle is noted. CARDIOVASCULAR: No aortic atherosclerotic calcification present. Normal cardiac size. No pulmonary vascular congestion. OSSEOUS STRUCTURES: No significant abnormalities. VISUALIZED UPPER ABDOMEN: Normal. OTHER FINDINGS: None. IMPRESSION: No significant interval changes noted.
[2018-11-18] MEDS: Albuterol-Ipratrop 3 mg / 0.5 (3 ml) UD INH SCH ×3 (01:19→13:28)
[2018-11-18] MEDS: (Novolin R) Insulin Human Regular 100 units/ml vial SC SCH ×4 (07:30→22:07)
[2018-11-18 08:52] LABS: BASO % 0.4 % (0.0-2.0); EOS # 0.4 K/uL (0.0-0.7); HEMOGLOBIN 7.9 g/dL (12.0-18.0); LYMPH # 1.1 K/uL (1.0-4.3); LYMPH % 8.2 % (20.0-40.0); MEAN CELL VOLUME 80.9 fL (80.0-94.0); MEAN CORPUSCULAR HEMOGLOBIN 25.4 pg (27.0-31.0); MEAN CORPUSCULAR HGB CONC 31.4 g/dL (33.0-37.0); MEAN PLATELET VOLUME 8.5 fL (7.2-11.7); MONO # 0.9 K/uL (0.0-0.8); MONO % 7.2 % (0.0-10.0); NEUT # 10.7 K/uL (1.8-7.0); NEUT % 81.2 % (50.0-75.0); PLATELET COUNT 181 K/uL (130-400); RED CELL DISTRIBUTION WIDTH 18.2 % (11.5-14.5); WHITE BLOOD COUNT 13.1 K/uL (4.8-10.8)
[2018-11-18 09:14] LABS: ALB/GLOB RATIO 0.7 (1.0-2.1); ALBUMIN 2.2 g/dL (3.5-5.0); ALT/SGPT < 6 U/L (21-72); AST/SGOT 9 U/L (17-59); BLOOD UREA NITROGEN 6 mg/dL (9-20); CALCIUM 10.5 mg/dl (8.6-10.4); GFR NON-AFRICAN AMERICAN > 60
--- NOTE | 2018-11-18 09:42 | CP.PCM.PN ---
Subjective - Date & Time of Evaluation Date of Evaluation: 11/17/18 Time of Evaluation: 15:15 - Subjective Subjective: Patient with Poorly differetiated Ca No cardiac symtpoms thus far Physical Examination - Constitutional Appears: Unkempt, Cachectic - Head Exam Head Exam: NORMAL INSPECTION - Eye Exam Eye Exam: EOMI - ENT Exam ENT Exam: Mucous Membranes Moist - Respiratory Exam Respiratory Exam: Decreased Breath Sounds, Rhonchi, NORMAL BREATHING PATTERN. absent: Stridor - Cardiovascular Exam Cardiovascular Exam: REGULAR RHYTHM, +S1, +S2 - GI/Abdominal Exam GI & Abdominal Exam: Soft, Normal Bowel Sounds. absent: Distended, Firm, Guarding, Rigid, Tenderness, Rebound - Extremities Exam Extremities Exam: Pedal Edema (ankle pitting bilateral). absent: Tenderness - Neurological Exam Neurological Exam: Alert, Awake, Oriented x3 - Skin Skin Exam: Dry, Pallor, Warm Objective - Vital Signs/Intake and Output Vital Signs (last 24 hours): Temp Pulse Resp BP Pulse Ox 98.0 F 75 20 146/83 100 11/18/18 07:20 11/18/18 07:20 11/18/18 07:20 11/18/18 07:20 11/18/18 07:20 Intake and Output: 11/18/18 11/18/18 06:59 18:59 Intake Total 730 Output Total 1800 Balance -1070 - Medications Medications: Current Medications Acetaminophen (Tylenol 325mg Tab) 650 mg PO Q6 PRN PRN Reason: Fever >100.4 F Albuterol/Ipratropium (Duoneb 3 Mg/0.5 Mg (3 Ml) Ud) 3 ml INH RQ6 [facility] Last Admin: 11/18/18 08:02 Dose: 3 ml Dextrose (Dextrose 50% Inj) 0 ml IV STAT PRN; Protocol PRN Reason: Hypoglycemia Protocol Dextrose (Glutose 15) 0 gm PO ONCE PRN; Protocol PRN Reason: Hypoglycemia Protocol Enoxaparin Sodium (Lovenox) 40 mg SC DAILY [facility] Last Admin: 11/17/18 09:41 Dose: 40 mg Fluconazole (Diflucan) 100 mg PO DAILY [facility]; Protocol Last Admin: 11/17/18 09:49 Dose: 100 mg Folic Acid (Folic Acid) 1 mg PO DAILY [facility] Last Admin: 11/17/18 09:40 Dose: 1 mg Glucagon (Glucagen Diagnostic Kit) 0 mg IM STAT PRN; Protocol PRN Reason: Hypoglycemia Protocol Insulin Human Regular (Novolin R) 0 unit SC ACHS [facility]; Protocol Last Admin: 11/17/18 21:55 Dose: Not Given Lactobacillus Acidophilus (Lactobacillus) 1 cap PO Q12H [facility] Last Admin: 11/17/18 21:57 Dose: 1 cap Mirtazapine (Remeron) 15 mg PO HS [facility] Last Admin: 11/17/18 21:57 Dose: 15 mg Multivitamins (Hexavitamin) 1 tab PO DAILY [facility] Last Admin: 11/17/18 09:40 Dose: 1 tab Nicotine (Nicoderm Cq) 1 patch TD DAILY [facility] Last Admin: 11/17/18 09:40 Dose: 1 patch Pantoprazole Sodium (Protonix Ec Tab) 40 mg PO DAILY [facility] Last Admin: 11/17/18 09:49 Dose: 40 mg Sertraline HCl (Zoloft) 25 mg PO DAILY [facility] Last Admin: 11/17/18 09:41 Dose: 25 mg Sodium Chloride ([place] Baby Saline 30 Ml) 1 ml RODNEY BID [facility] Last Admin: 11/17/18 17:37 Dose: 1 spr Thiamine HCl (Vitamin B1 Tab) 100 mg PO DAILY [facility] Last Admin: 11/17/18 09:41 Dose: 100 mg - Labs Labs: 11/18/18 08:43 11/18/18 08:43 PT 15.2 SECONDS (9.7-12.2) H 11/12/18 06:13 INR 1.4 11/12/18 06:13 APTT 29 SECONDS (21-34) 11/12/18 06:13 Assessment and Plan - Assessment and Plan (Free Text) Assessment: Assessment and Plan (1) Sepsis Urinary tract infection Bacteremia Empyema Assessment & Plan: * Code sepsis 11/08/18 * Infectious Disease (Dr. Bojorquez) on board-->help appreciated * Criteria: leukocytosis, hypotension, bandemia, hypothermia, source of infections: empyema, uti, bacteremia * Lactic acid: 3.5-->1.7 * elevated procalcitonin: 1.49-->0.83 on 11/11/18 * Blood culture (11/08/18): Klebsiella pneumoniae * Sensitive to Zosyn with LUPE of less than 4 * Repeat Blood culture (11/11/18): finalized as negative at 5 days * Urine culture (11/08/18): Enterococcus Faecalis * Repeat Urine Culture (11/15/18): NO growth * MRSA (11/08/18): not detected * Pleural fluid (11/09/18): no acid fast bacilli * Pleural fluid (11/09/18): Streptococcus anginosus which is sensitive to Vancomycin which the patient was restarted on 11/11/18 * Chest xray (11/08/18): layering left pleural effusion and/or consolidation * Chest xray (11/09/18): slight increase in left perihilar/basilar opacity. small left pleural effusion, grossly unchanged * Iv abx: * Zosyn 3.375 g IV Q6H (active since 11/08/18) * Vancomycin 1 gram IV Q12 (11/08/18 through 11/11/18): spoke with ID Dr. Bojorquez 11/12/18: Zosyn will cover the Klebsiella, Streptococcus and the Enterococcus * CT Chest 11/12/18: moderate left sided hydropneumothorax, moderate right pleural effusion, bilateral lower lobe consolidations, mediastinal lymphadenopathy, moderate hiatal hernia with gastric wall thickening Status: Acute (2) Empyema; Loculated Left Pleural effusion Assessment & Plan: * Thoracic Surgery (Dr. Bro) on board-->help appreciated * VATS procedure cancelled on 11/12/18 * Repeat CT Chest ordered 11/12/18 * Chest xray (11.08.18): layering left pleural effusion and/or consolidation * Chest xray (11/09/18): slight increase in left perihilar/basilar opacity. small left pleural effusion, grossly unchanged * S/P IR thoracentesis 11/09/18; placement of pigtail catheter * Pleural fluid (11/09/18): Streptococcus anginosus which is sensitive to Vancomycin which the patient was restarted on 11/11/18 * Pleural fluid (11/09/18): moderate PMNs, moderate gram positive cocci * Echocardiogram (08/20/18): left ventricular function is normal, left ventricular ejection fraction is within the the normal range about 55%, mild mitral valve regurgitation noted Status: Acute (3) Anemia Assessment & Plan: * Thoracic Surgery (Dr. Bro) on board-->help appreciated * GI (Dr. Aaron) on board-->help appreciated * Likely secondary to the suspicious mass found on EGD performed on 11/12/18? * On admission: hgb 10-->5 * blood transfusion consent obtained by resident 11/08/18 * given 3 units of PRBC overnight night and 1 FFP unit * rectal negative * ferritin low * iron low: will not repleat at this time considering multiple infections as documented in Assessment/Plan #1 * tibc: 148 low * transferrin low * Stable 8.6 since blood transfusion 11/08/18 * Reticulocyte count: 2.2--> reticulocyte index: 0.12-->hypoproliferation <2 * Folate low * B12: 967 (low) * Occult blood: negative * CT Chest/Abdomen/pelvis (11/08/18): ascites, anasarca, interval loculated left pleural effusion, appearance of GE junction is indeterminate here a hiatal hernia vs mass Status: Acute (4) Cirrhosis Assessment & Plan: * GI (Dr. Aaron) on board-->help appreciated * CT Chest/Abdomen/pelvis IV contrast (11/08/18): prior amount of ascites and anasarca has improved. further findings per report * Abdominal US (08/18/18): limited study. echogenic liver may be seen in hepatic parenchymal disease or fatty infiltrate. nodular hepatic contour. cholelithiasis. gallbladder wall thickening/pericholecystic edema. negative sonographic Cespedes's small abdominal ascites * Hepatitis Panel negative * Blood alcohol <10 * Patient notes he has drinking 3 shots of vodka X 30 years. Status: Acute (5) Diabetes mellitus 2 Assessment & Plan: * Hgba1c: 8.1 * Patient is off metformin given elevated lactic on admission * RISS ACHS * Accuchecks QAC and HS Status: Chronic (6) GE junction Mass Assessment & Plan: * Thoracic Surgery (Dr. Bro) on board-->help appreciated * GI (Dr. Aaron) on board-->help appreciated * CT Chest/Abdomen/pelvis (11/08/18): ascites, anasarca, interval loculated left pleural effusion, appearance of GE junction is indeterminate here a hiatal hernia vs mass * Patient is S/P Upper EGD on 11/12/18 and pathology from biopsy has confirmed Poorly Differentiated Squamous Cell CA * Heme/Oncologist Dr. Melody Paredes recommendation: outpatient PET Scan for staging and if NO mets then Chemo+Radiation and Surgical evaluation * Palliative Care Nurse Rosas is on board Status: Acute (7) Alcohol use Assessment & Plan: * Ciwa protocol * Aspiration precautions * Seizure precautions * Folic acid 1mg PO Daily * MVI tab PO daily * Thiamine 100mg PO daily * 3 shots of vodka X 30 years history * Monitor for withdrawal; patient is not currently in withdrawal * Abdominal US (08/18/18): limited study. Echogenic liver may be seen in hepatic parenchymal disease or fatty infiltrate. Nodular hepatic contour. cholelithiasis. Gallbladder wall thickening/pericholecystic edema. Negative sonographic Cespedes's small abdominal ascites Status: Acute (8) Tobacco use Assessment & Plan: * 1 ppd X30 years * Nicotine patch daily * Advised smoking cessation Status: Acute (9) Cachexia Assessment & Plan: * Related to alcohol, smoking, malnutrition, AND likely related to suspicious GE mass? Status: Acute (10) Ulcer of sacral region, stage 1 Assessment & Plan: * Wound Care Nurse Joseph Amaya is on board: [facility] [place] and continue to turn patient every 2 hours * Exam on 11/16/18 continues to reveal nonblanchable erythema to the upper buttocks and lower sacrum with NO skin breakdown noted Status: Acute (11) Prophylactic measure Status: Acute * PT/OT eval * Protonix 40mg IV q12H * Full code * Lovenox 40mg subq daily for DVT ppx * Bilateral LE Venous Doppler 11/12/18: NO DVTs Cardiac point of view no additional work up needed/recommended at this time
[2018-11-18 09:44] LABS: BANDS 6 % (0-2); EOSINOPHIL 2 % (0-4); LYMPHOCYTE 4 % (20-40); MONOCYTE 5 % (0-10); NEUTROPHIL 83 % (50-75); PLATELET ESTIMATE NORMAL (NORMAL); TOTAL CELLS COUNTED 100
[2018-11-18 09:45] LABS: ANISOCYTOSIS MODERATE; HYPOCHROMIC MODERATE; POLYCHROMIC SLIGHT
[2018-11-18 09:46] LABS: LARGE PLATELETS PRESENT; TOXIC GRANULATION PRESENT
[2018-11-18] MEDS: Sodium Chloride Nasal 0.65% Soln (30ml) NAS SCH ×2 (10:00→17:41)
[2018-11-18] MEDS: Pantoprazole 40 mg EC Tab PO SCH (10:01)
[2018-11-18] MEDS: Multiple Vitamins Tab PO SCH (10:01)
[2018-11-18] MEDS: Lactobacillus Acidophilus 500 MU Cap PO SCH ×2 (10:01→21:27)
[2018-11-18] MEDS: Enoxaparin 40 mg Syringe SC SCH (10:01)
--- NOTE | 2018-11-18 13:39 | CP.PCM.PN ---
Subjective - Date & Time of Evaluation Date of Evaluation: 11/18/18 Time of Evaluation: 13:15 - Subjective Subjective: Hospitalist Progress Note Patient was seen and examined at 1:15 PM 11/18/18 Patient underwent EGD on Monday11/12/18 and biopsy was taken of mass extending from GE into the Stomach. 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 Melody Paredes are on board. EGD biopsy PAS Stain also indicated Mallory: Diflucan 100 mg PO 1x/day started by GI 11/14/18 and this should be continued for 21 days through 12/05/18. At this time I do NOT believe that patient is a good surgical candidate for surgery considering the Assessment and Plan #1 below. Heme/Oncologist Dr. Melody Paredes recommendation: outpatient PET Scan for staging and if NO mets then Chemo+Radiation and Surgical evaluation Patient will also need a source of nutrition and therefore PEG Tube was recommended by GI Dr. Aaron. Patient agreed to have this placed and this was performed 11/15/16. Cafeteria Monitor has seen patient 11/16/18 and the following has been recommended: Glucerna 1.5 bolus feeding 6x per day with 250 ml Free Water Flush Q6H. Patient is currently tolerating PEG Tube Feedings Patient had Right PICC Line placed 11/14/18 as he will need correction antibiotic (Zosyn 3.375 gm IV Q6H) for the Bacteremia, UTI, and Pleural Fluid/Empyema (see Assessment and Plan #1 below). VATS procedure was placed on hold by Surgery Team (originally planned for 11/12/18). CT Chest 11/12/18: moderate left sided hydropneumothorax, moderate right pleural effusion, bilateral lower lobe consolidations, mediastinal lymphadenopathy, moderate hiatal hernia with gastric wall thickening Pigtail Catheter Left Chest was taken off suction and placed on water seal 11/14/18 Surgery Team removed the Pigtail Catheter from Left Chest on 11/17/18 evening Patient's primary contact and decision maker should he not be able to make decisions on his own is Sister Korin (Home# [phone], ). Spoke with Korin at length via phone on evening 11/15/18 and explained recently developements and plan of care. She explained that patient's home is filthy and packed with garbage/newspapers/empty alcohol bottles and does not feel patient will be able to care for himself. I spoke with Psychiatrist Dr. Xiao 11/16/18 and informed him of the patient's home living situation and he will see patient again on 11/19/18. Voting Machine Repairer Minnie was notified of Korin's concerns and [facility] would notify Adult Protective Services once he is discharge to [facility]. Palliative Care is already on board, but Korin would like assistance in speaking with patient concerning his Will/Testament and I have asked Palliative Care Nurse Rosas to speak with the patient when she is back on 11/19/18. Upon FULL ROS: NO chest pain NO longer experiencing pain in the posterior upper left chest area at former pigtail catheter insertion site There is some soreness at the PEG tube insertion site but this is decreasing NO SOB/Cough/Wheezing NO abdominal pain: however some bloating sensation since the start of the PEG Tube feedings on 11/16/18. States it seems that he has to move his bowels immediately after the feedings are over and they are soft bowel movements NO n/v/d NO other complaints upon FULL ROS Exam: General: Resting comfortably and in NO distress HEENT: NCA, EOMI, PERRLA, NO pharyngeal erythema/exudate, NO lymphadenopathy Cardio: NS1 and NS2, NO M/R/G Resp: CTA B/L, NO R/R/W GI: BSx4, Soft, ND, NO HSM, NO guarding/rebound tenderness. PEG Tube insertion site without any surrounding signs of cellulitis Ext: Pulses are strong and equal, Capillary Refill is 2 seconds, 1+ Pitting Edema bilateral lower legs from ankles to midtibia has improved Neuro: CN II through XII are grossly intact Skin: Nonblanchable erythema upper buttocks and lower sacrum without any skin breakdown Assessment and Plan (1) Sepsis Urinary tract infection Bacteremia Empyema Assessment & Plan: * Code sepsis 11/08/18 * Infectious Disease (Dr. Bojorquez) on board-->help appreciated * Criteria: leukocytosis, hypotension, bandemia, hypothermia, source of infections: empyema, uti, bacteremia * Lactic acid: 3.5-->1.7 * elevated procalcitonin: 1.49-->0.83 on 11/11/18 * Blood culture (11/08/18): Klebsiella pneumoniae * Sensitive to Zosyn with LUPE of less than 4 * Repeat Blood culture (11/11/18): finalized as negative at 5 days * Urine culture (11/08/18): Enterococcus Faecalis * Repeat Urine Culture (11/15/18): NO growth * MRSA (11/08/18): not detected * Pleural fluid (11/09/18): no acid fast bacilli * Pleural fluid (11/09/18): Streptococcus anginosus which is sensitive to Vancomycin which the patient was restarted on 11/11/18 * Chest xray (11/08/18): layering left pleural effusion and/or consolidation * Chest xray (11/09/18): slight increase in left perihilar/basilar opacity. small left pleural effusion, grossly unchanged * Iv abx: * Zosyn 3.375 g IV Q6H (active since 11/08/18 and will need to be continued through 11/30/18) * Vancomycin 1 gram IV Q12 (11/08/18 through 11/11/18): spoke with ID Dr. Bojorquez 11/12/18: Zosyn will cover the Klebsiella, Streptococcus and the E nterococcus * CT Chest 11/12/18: moderate left sided hydropneumothorax, moderate right pleural effusion, bilateral lower lobe consolidations, mediastinal lymphadenopathy, moderate hiatal hernia with gastric wall thickening * Pigtail Catheter Left Chest was taken off suction and placed on water seal 11/14/18 * Surgery Team removed the Pigtail Catheter from Left Chest on 11/17/18 evening Status: Acute (2) Empyema; Loculated Left Pleural effusion Assessment & Plan: * Thoracic Surgery (Dr. Bro) on board-->help appreciated * VATS procedure cancelled on 11/12/18 * CT Chest 11/12/18: moderate left sided hydropneumothorax, moderate right pleural effusion, bilateral lower lobe consolidations, mediastinal lympha denopathy, moderate hiatal hernia with gastric wall thickening . * Pigtail Catheter Left Chest was taken off suction and placed on water seal 11/14/18 * Surgery Team removed the Pigtail Catheter from Left Chest on 11/17/18 evening * Chest xray (11.08.18): layering left pleural effusion and/or consolidation * Chest xray (11/09/18): slight increase in left perihilar/basilar opacity. small left pleural effusion, grossly unchanged * S/P IR thoracentesis 11/09/18 placement of pigtail catheter * Pleural fluid (11/09/18): Streptococcus anginosus which is sensitive to Vancomycin which the patient was restarted on 11/11/18 * Pleural fluid (11/09/18): moderate PMNs, moderate gram positive cocci * Echocardiogram (08/20/18): left ventricular function is normal, left ventricular ejection fraction is within the the normal range about 55%, mild mitral valve regurgitation noted Status: Acute (3) Anemia Assessment & Plan: * Thoracic Surgery (Dr. Bro) on board-->help appreciated * GI (Dr. Aaron) on board-->help appreciated * Likely secondary to the suspicious mass found on EGD performed on 11/12/18? * On admission: hgb 10-->5 * blood transfusion consent obtained by resident 11/08/18 * given 3 units of PRBC overnight night and 1 FFP unit * rectal negative * ferritin low * iron low: will not repleat at this time considering multiple infections as documented in Assessment/Plan #1 * tibc: 148 low * transferrin low * Stable 8.6 since blood transfusion 11/08/18 * Reticulocyte count: 2.2--> reticulocyte index: 0.12-->hypoproliferation <2 * Folate low * B12: 967 (low) * Occult blood: negative * CT Chest/Abdomen/pelvis (11/08/18): ascites, anasarca, interval loculated left pleural effusion, appearance of GE junction is indeterminate here a hiatal hernia vs mass Status: Acute (4) Cirrhosis Assessment & Plan: * GI (Dr. Aaron) on board-->help appreciated * CT Chest/Abdomen/pelvis IV contrast (11/08/18): prior amount of ascites and anasarca has improved. further findings per report * Abdominal US (08/18/18): limited study. echogenic liver may be seen in hepatic p arenchymal disease or fatty infiltrate. nodular hepatic contour. cholelithiasis. gallbladder wall thickening/pericholecystic edema. negative sonographic Cespedes's small abdominal ascites * Hepatitis Panel negative * Blood alcohol <10 * Patient notes he has drinking 3 shots of vodka X 30 years. Status: Acute (5) Diabetes mellitus 2 Assessment & Plan: * Hgba1c: 8.1 * Patient is off metformin given elevated lactic on admission * RISS ACHS * Accuchecks QAC and HS Status: Chronic (6) GE junction Mass Assessment & Plan: * Thoracic Surgery (Dr. Bro) on board-->help appreciated * GI (Dr. Aaron) on board-->help appreciated * CT Chest/Abdomen/pelvis (11/08/18): ascites, anasarca, interval loculated left pleural effusion, appearance of GE junction is indeterminate here a hiatal hernia vs mass * Patient is S/P Upper EGD on 11/12/18 and pathology from biopsy has confirmed Poorly Differentiated Squamous Cell CA * Heme/Oncologist Dr. Melody Paredes recommendation: outpatient PET Scan for staging and if NO mets then Chemo+Radiation and Surgical evaluation * Palliative Care Nurse Rosas is on board Status: Acute (7) Alcohol use Assessment & Plan: * Ciwa protocol * Aspiration precautions * Seizure precautions * Folic acid 1mg PO Daily * MVI tab PO daily * Thiamine 100mg PO daily * 3 shots of vodka X 30 years history * Monitor for withdrawal; patient is not currently in withdrawal * Abdominal US (08/18/18): limited study. Echogenic liver may be seen in hepatic parenchymal disease or fatty infiltrate. Nodular hepatic contour. cholelithiasis. Gallbladder wall thickening/pericholecystic edema. Negative sonographic Cespedes's small abdominal ascites Status: Acute (8) Tobacco use Assessment & Plan: * 1 ppd X30 years * Nicotine patch daily * Advised smoking cessation Status: Acute (9) Cachexia Assessment & Plan: * Related to alcohol, smoking, malnutrition, AND likely related to suspicious GE mass? Status: Acute (10) Ulcer of sacral region, stage 1 Assessment & Plan: * Wound Care Nurse Joseph Amaya is on board: Charlene Price and continue to turn patient every 2 hours * Exam on 11/16/18 continues to reveal nonblanchable erythema to the upper buttocks and lower sacrum with NO skin breakdown noted Status: Acute (11) Prophylactic measure Status: Acute * PT/OT eval * Protonix 40mg IV q12H * Full code * Lovenox 40mg subq daily for DVT ppx * Bilateral LE Venous Doppler 11/12/18: NO DVTs Disposition: Repeat Blood Culture 11/11/18: negative to date Repeat Urine Culture 11/14/18: shows NO growth Will need length of antibiotic (Zosyn) from ID: Medicine Team to confirm with Dr. Bojorquez that the Zosyn needs to be continued through 11/30/18. Make sure there is NO reaccumulation of the Left Pleural Effusion with repeat Chest X Ray and Respiratory Exam Plan for Subacute Rehab ([facility]) once patient continues to tolerate PEG tube feedings (started on 11/16/18) and Left Chest Pigtail Catheter is removed Adult Protective Services through [facility] Plan of care has been explained to patient Nestor Sebastian D.O. Objective - Vital Signs/Intake and Output Vital Signs (last 24 hours): Temp Pulse Resp BP Pulse Ox 98.0 F 75 20 146/83 100 11/18/18 07:20 11/18/18 07:20 11/18/18 07:20 11/18/18 07:20 11/18/18 07:20 Intake and Output: 11/18/18 11/18/18 06:59 18:59 Intake Total 730 Output Total 1800 Balance -1070 - Medications Medications: Current Medications Acetaminophen (Tylenol 325mg Tab) 650 mg PO Q6 PRN PRN Reason: Fever >100.4 F Albuterol/Ipratropium (Duoneb 3 Mg/0.5 Mg (3 Ml) Ud) 3 ml INH RQ6 [facility] Last Admin: 11/18/18 08:02 Dose: 3 ml Dextrose (Dextrose 50% Inj) 0 ml IV STAT PRN; Protocol PRN Reason: Hypoglycemia Protocol Dextrose (Glutose 15) 0 gm PO ONCE PRN; Protocol PRN Reason: Hypoglycemia Protocol Enoxaparin Sodium (Lovenox) 40 mg SC DAILY [facility] Last Admin: 11/18/18 10:01 Dose: 40 mg Fluconazole (Diflucan) 100 mg PO DAILY [facility]; Protocol Last Admin: 11/18/18 10:01 Dose: 100 mg Folic Acid (Folic Acid) 1 mg PO DAILY [facility] Last Admin: 11/18/18 10:01 Dose: 1 mg Glucagon (Glucagen Diagnostic Kit) 0 mg IM STAT PRN; Protocol PRN Reason: Hypoglycemia Protocol Insulin Human Regular (Novolin R) 0 unit SC ACHS [facility]; Protocol Last Admin: 11/18/18 12:59 Dose: 6 u Lactobacillus Acidophilus (Lactobacillus) 1 cap PO Q12H [facility] Last Admin: 11/18/18 10:01 Dose: 1 cap Mirtazapine (Remeron) 15 mg PO HS [facility] Last Admin: 11/17/18 21:57 Dose: 15 mg Multivitamins (Hexavitamin) 1 tab PO DAILY [facility] Last Admin: 11/18/18 10:01 Dose: 1 tab Nicotine (Nicoderm Cq) 1 patch TD DAILY [facility] Last Admin: 11/18/18 10:02 Dose: 1 patch Pantoprazole Sodium (Protonix Ec Tab) 40 mg PO DAILY [facility] Last Admin: 11/18/18 10:01 Dose: 40 mg Sertraline HCl (Zoloft) 25 mg PO DAILY [facility] Last Admin: 11/18/18 10:09 Dose: 25 mg Sodium Chloride ([place] Baby Saline 30 Ml) 1 ml RODNEY BID [facility] Last Admin: 11/17/18 17:37 Dose: 1 spr Thiamine HCl (Vitamin B1 Tab) 100 mg PO DAILY [facility] Last Admin: 11/18/18 10:01 Dose: 100 mg - Labs Labs: 11/18/18 08:43 11/18/18 08:43 PT 15.2 SECONDS (9.7-12.2) H 11/12/18 06:13 INR 1.4 11/12/18 06:13 APTT 29 SECONDS (21-34) 11/12/18 06:13
[2018-11-18] MEDS: Piperacillin/Tazobact 3.375 GM in Sodium Chloride 100 ML IVPB SCH ×2 (15:30→21:28)
--- NOTE | 2018-11-18 15:31 | CP.PCM.PN ---
Subjective - Date & Time of Evaluation Date of Evaluation: 11/18/18 Time of Evaluation: 06:45 - Subjective Subjective: Thoracic surgery progress note- Dr. Chery Pt S&E at bedside. No acute complaints. S/p removal of pigtail yesterday. Dressing C/D/I. Denies chest pain, shortness of breath. Objective - Vital Signs/Intake and Output Vital Signs (last 24 hours): Temp Pulse Resp BP Pulse Ox 98.0 F 75 20 146/83 100 11/18/18 07:20 11/18/18 07:20 11/18/18 07:20 11/18/18 07:20 11/18/18 07:20 Intake and Output: 11/18/18 11/18/18 06:59 18:59 Intake Total 730 Output Total 1800 Balance -1070 - Medications Medications: Current Medications Acetaminophen (Tylenol 325mg Tab) 650 mg PO Q6 PRN PRN Reason: Fever >100.4 F Albuterol/Ipratropium (Duoneb 3 Mg/0.5 Mg (3 Ml) Ud) 3 ml INH RQ6 [facility] Last Admin: 11/18/18 13:28 Dose: 3 ml Dextrose (Dextrose 50% Inj) 0 ml IV STAT PRN; Protocol PRN Reason: Hypoglycemia Protocol Dextrose (Glutose 15) 0 gm PO ONCE PRN; Protocol PRN Reason: Hypoglycemia Protocol Enoxaparin Sodium (Lovenox) 40 mg SC DAILY [facility] Last Admin: 11/18/18 10:01 Dose: 40 mg Fluconazole (Diflucan) 100 mg PO DAILY [facility]; Protocol Last Admin: 11/18/18 10:01 Dose: 100 mg Folic Acid (Folic Acid) 1 mg PO DAILY [facility] Last Admin: 11/18/18 10:01 Dose: 1 mg Glucagon (Glucagen Diagnostic Kit) 0 mg IM STAT PRN; Protocol PRN Reason: Hypoglycemia Protocol Piperacillin Sod/Tazobactam (Sod 3.375 gm/ Sodium Chloride) 100 mls @ 200 mls/hr IVPB Q6H [facility]; Protocol Insulin Human Regular (Novolin R) 0 unit SC ACHS [facility]; Protocol Last Admin: 11/18/18 12:59 Dose: 6 u Lactobacillus Acidophilus (Lactobacillus) 1 cap PO Q12H [facility] Last Admin: 11/18/18 10:01 Dose: 1 cap Mirtazapine (Remeron) 15 mg PO HS [facility] Last Admin: 11/17/18 21:57 Dose: 15 mg Multivitamins (Hexavitamin) 1 tab PO DAILY [facility] Last Admin: 11/18/18 10:01 Dose: 1 tab Nicotine (Nicoderm Cq) 1 patch TD DAILY [facility] Last Admin: 11/18/18 10:02 Dose: 1 patch Pantoprazole Sodium (Protonix Ec Tab) 40 mg PO DAILY [facility] Last Admin: 11/18/18 10:01 Dose: 40 mg Sertraline HCl (Zoloft) 25 mg PO DAILY [facility] Last Admin: 11/18/18 10:09 Dose: 25 mg Sodium Chloride ([place] Baby Saline 30 Ml) 1 ml RODNEY BID [facility] Last Admin: 11/17/18 17:37 Dose: 1 spr Thiamine HCl (Vitamin B1 Tab) 100 mg PO DAILY [facility] Last Admin: 11/18/18 10:01 Dose: 100 mg - Labs Labs: 11/18/18 08:43 11/18/18 08:43 PT 15.2 SECONDS (9.7-12.2) H 11/12/18 06:13 INR 1.4 11/12/18 06:13 APTT 29 SECONDS (21-34) 11/12/18 06:13 - Constitutional Appears: Non-toxic, No Acute Distress - Head Exam Head Exam: ATRAUMATIC - Eye Exam Eye Exam: EOMI. absent: Scleral icterus - ENT Exam ENT Exam: Mucous Membranes Moist - Respiratory Exam Respiratory Exam: NORMAL BREATHING PATTERN. absent: Accessory Muscle Use, Respiratory Distress Additional comments: Left chest site dressing C/D/I no strikethrough. Saturating 97% on 2L - Cardiovascular Exam Cardiovascular Exam: REGULAR RHYTHM. absent: Bradycardia, Tachycardia - GI/Abdominal Exam GI & Abdominal Exam: Soft. absent: Distended, Firm, Guarding, Rigid, Tenderness - Neurological Exam Neurological Exam: Alert, Awake, Oriented x3 - Psychiatric Exam Psychiatric exam: Normal Affect - Skin Skin Exam: Intact, Warm Assessment and Plan - Assessment and Plan (Free Text) Assessment: 58M w/ L pleural effusion s/p pigtail removal on 11/17 Plan: - continues to saturate well - no respiratory distress - no further acute surgical intervention at this time - please re-consult as needed - further recs per Dr. Miri Gan PGY2
--- NOTE | 2018-11-18 15:42 | CP.PCM.PN ---
Subjective - Date & Time of Evaluation Date of Evaluation: 11/18/18 Time of Evaluation: 07:00 - Subjective Subjective: s/p removal of pigtail WBC trending up Objective - Vital Signs/Intake and Output Vital Signs (last 24 hours): Temp Pulse Resp BP Pulse Ox 98.0 F 75 20 146/83 100 11/18/18 07:20 11/18/18 07:20 11/18/18 07:20 11/18/18 07:20 11/18/18 07:20 Intake and Output: 11/18/18 11/18/18 06:59 18:59 Intake Total 730 Output Total 1800 Balance -1070 - Medications Medications: Current Medications Acetaminophen (Tylenol 325mg Tab) 650 mg PO Q6 PRN PRN Reason: Fever >100.4 F Albuterol/Ipratropium (Duoneb 3 Mg/0.5 Mg (3 Ml) Ud) 3 ml INH RQ6 [facility] Last Admin: 11/18/18 13:28 Dose: 3 ml Dextrose (Dextrose 50% Inj) 0 ml IV STAT PRN; Protocol PRN Reason: Hypoglycemia Protocol Dextrose (Glutose 15) 0 gm PO ONCE PRN; Protocol PRN Reason: Hypoglycemia Protocol Enoxaparin Sodium (Lovenox) 40 mg SC DAILY [facility] Last Admin: 11/18/18 10:01 Dose: 40 mg Fluconazole (Diflucan) 100 mg PO DAILY [facility]; Protocol Last Admin: 11/18/18 10:01 Dose: 100 mg Folic Acid (Folic Acid) 1 mg PO DAILY [facility] Last Admin: 11/18/18 10:01 Dose: 1 mg Glucagon (Glucagen Diagnostic Kit) 0 mg IM STAT PRN; Protocol PRN Reason: Hypoglycemia Protocol Piperacillin Sod/Tazobactam (Sod 3.375 gm/ Sodium Chloride) 100 mls @ 200 mls/hr IVPB Q6H [facility]; Protocol Insulin Human Regular (Novolin R) 0 unit SC ACHS [facility]; Protocol Last Admin: 11/18/18 12:59 Dose: 6 u Lactobacillus Acidophilus (Lactobacillus) 1 cap PO Q12H [facility] Last Admin: 11/18/18 10:01 Dose: 1 cap Mirtazapine (Remeron) 15 mg PO HS [facility] Last Admin: 11/17/18 21:57 Dose: 15 mg Multivitamins (Hexavitamin) 1 tab PO DAILY [facility] Last Admin: 11/18/18 10:01 Dose: 1 tab Nicotine (Nicoderm Cq) 1 patch TD DAILY [facility] Last Admin: 11/18/18 10:02 Dose: 1 patch Pantoprazole Sodium (Protonix Ec Tab) 40 mg PO DAILY [facility] Last Admin: 11/18/18 10:01 Dose: 40 mg Sertraline HCl (Zoloft) 25 mg PO DAILY [facility] Last Admin: 11/18/18 10:09 Dose: 25 mg Sodium Chloride ([place] Baby Saline 30 Ml) 1 ml RODNEY BID [facility] Last Admin: 11/17/18 17:37 Dose: 1 spr Thiamine HCl (Vitamin B1 Tab) 100 mg PO DAILY [facility] Last Admin: 11/18/18 10:01 Dose: 100 mg - Labs Labs: 11/18/18 08:43 11/18/18 08:43 PT 15.2 SECONDS (9.7-12.2) H 11/12/18 06:13 INR 1.4 11/12/18 06:13 APTT 29 SECONDS (21-34) 11/12/18 06:13 - Constitutional Appears: Non-toxic, Cachectic, Chronically Ill - Head Exam Head Exam: NORMOCEPHALIC - Eye Exam Eye Exam: absent: Scleral icterus - ENT Exam ENT Exam: Mucous Membranes Dry - Neck Exam Neck Exam: absent: Lymphadenopathy - Respiratory Exam Respiratory Exam: Decreased Breath Sounds - Cardiovascular Exam Cardiovascular Exam: REGULAR RHYTHM - GI/Abdominal Exam GI & Abdominal Exam: Distended Additional comments: GT in place - Rectal Exam Rectal Exam: Deferred - Exam Exam: NORMAL INSPECTION - Extremities Exam Extremities Exam: absent: Pedal Edema - Back Exam Back Exam: absent: CVA tenderness (L), CVA tenderness (R) - Neurological Exam Neurological Exam: Alert, Awake, CN II-XII Intact Assessment and Plan (1) Esophageal mass Status: Acute (2) Abnormal CT scan, chest Status: Acute (3) Alcohol use Status: Acute (4) Anemia Status: Acute (5) Cachexia Status: Acute (6) Pleural effusion Status: Acute (7) Sepsis Status: Acute (8) Cirrhosis Status: Acute (9) Diabetes mellitus Status: Acute (10) Gram negative sepsis Status: Acute (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
--- NOTE | 2018-11-18 23:52 | CP.PCM.PN ---
Subjective - Date & Time of Evaluation Date of Evaluation: 11/18/18 Time of Evaluation: 13:35 - Subjective Subjective: Patient seen and evaluated No cardiac complaints noted GI carcinoma Medical management Objective - Vital Signs/Intake and Output Vital Signs (last 24 hours): Temp Pulse Resp BP Pulse Ox 98.4 F 73 20 112/72 100 11/18/18 16:29 11/18/18 16:29 11/18/18 16:29 11/18/18 16:29 11/18/18 16:29 - Medications Medications: Current Medications Acetaminophen (Tylenol 325mg Tab) 650 mg PO Q6 PRN PRN Reason: Fever >100.4 F Albuterol/Ipratropium (Duoneb 3 Mg/0.5 Mg (3 Ml) Ud) 3 ml INH RQ6 [facility] Last Admin: 11/18/18 13:28 Dose: 3 ml Dextrose (Dextrose 50% Inj) 0 ml IV STAT PRN; Protocol PRN Reason: Hypoglycemia Protocol Dextrose (Glutose 15) 0 gm PO ONCE PRN; Protocol PRN Reason: Hypoglycemia Protocol Enoxaparin Sodium (Lovenox) 40 mg SC DAILY [facility] Last Admin: 11/18/18 10:01 Dose: 40 mg Fluconazole (Diflucan) 100 mg PO DAILY [facility]; Protocol Last Admin: 11/18/18 10:01 Dose: 100 mg Folic Acid (Folic Acid) 1 mg PO DAILY [facility] Last Admin: 11/18/18 10:01 Dose: 1 mg Glucagon (Glucagen Diagnostic Kit) 0 mg IM STAT PRN; Protocol PRN Reason: Hypoglycemia Protocol Piperacillin Sod/Tazobactam (Sod 3.375 gm/ Sodium Chloride) 100 mls @ 200 mls/hr IVPB Q6H [facility]; Protocol Last Admin: 11/18/18 21:28 Dose: 200 mls/hr Insulin Human Regular (Novolin R) 0 unit SC ACHS [facility]; Protocol Last Admin: 11/18/18 22:07 Dose: 2 u Lactobacillus Acidophilus (Lactobacillus) 1 cap PO Q12H [facility] Last Admin: 11/18/18 21:27 Dose: 1 cap Mirtazapine (Remeron) 15 mg PO HS [facility] Last Admin: 11/18/18 21:27 Dose: 15 mg Multivitamins (Hexavitamin) 1 tab PO DAILY [facility] Last Admin: 11/18/18 10:01 Dose: 1 tab Nicotine (Nicoderm Cq) 1 patch TD DAILY [facility] Last Admin: 11/18/18 10:02 Dose: 1 patch Pantoprazole Sodium (Protonix Ec Tab) 40 mg PO DAILY [facility] Last Admin: 11/18/18 10:01 Dose: 40 mg Sertraline HCl (Zoloft) 25 mg PO DAILY [facility] Last Admin: 11/18/18 10:09 Dose: 25 mg Sodium Chloride ([place] Baby Saline 30 Ml) 1 ml RODNEY BID [facility] Last Admin: 11/18/18 17:41 Dose: 1 spr Thiamine HCl (Vitamin B1 Tab) 100 mg PO DAILY [facility] Last Admin: 11/18/18 10:01 Dose: 100 mg - Labs Labs: 11/18/18 08:43 11/18/18 08:43 PT 15.2 SECONDS (9.7-12.2) H 11/12/18 06:13 INR 1.4 11/12/18 06:13 APTT 29 SECONDS (21-34) 11/12/18 06:13
[2018-11-19] MEDS: Albuterol-Ipratrop 3 mg / 0.5 (3 ml) UD INH SCH ×4 (01:14→19:42)
[2018-11-19] MEDS: Piperacillin/Tazobact 3.375 GM in Sodium Chloride 100 ML IVPB SCH ×4 (02:06→22:35)
[2018-11-19 07:20] LABS: BASO # 0.2 K/uL (0.0-0.2); BASO % 1.2 % (0.0-2.0); EOS # 0.4 K/uL (0.0-0.7); HEMOGLOBIN 7.9 g/dL (12.0-18.0); LYMPH # 1.2 K/uL (1.0-4.3); LYMPH % 8.9 % (20.0-40.0); MEAN CELL VOLUME 80.9 fL (80.0-94.0); MEAN CORPUSCULAR HEMOGLOBIN 25.5 pg (27.0-31.0); MEAN CORPUSCULAR HGB CONC 31.5 g/dL (33.0-37.0); MEAN PLATELET VOLUME 8.5 fL (7.2-11.7); MONO # 1.2 K/uL (0.0-0.8); MONO % 8.8 % (0.0-10.0); NEUT % 78.1 % (50.0-75.0); PLATELET COUNT 162 K/uL (130-400); RED CELL DISTRIBUTION WIDTH 18.6 % (11.5-14.5)
[2018-11-19 07:46] LABS: ALB/GLOB RATIO 0.7 (1.0-2.1); ALBUMIN 2.3 g/dL (3.5-5.0); ALT/SGPT 10 U/L (21-72); AST/SGOT 12 U/L (17-59); BLOOD UREA NITROGEN 7 mg/dL (9-20); CALCIUM 10.8 mg/dl (8.6-10.4); GFR NON-AFRICAN AMERICAN > 60
[2018-11-19] MEDS: (Novolin R) Insulin Human Regular 100 units/ml vial SC SCH ×4 (08:21→23:33)
[2018-11-19 09:09] LABS: ANISOCYTOSIS SLIGHT; BANDS 7 % (0-2); EOSINOPHIL 2 % (0-4); HYPOCHROMIC SLIGHT; LYMPHOCYTE 12 % (20-40); MONOCYTE 7 % (0-10); NEUTROPHIL 72 % (50-75); PLATELET ESTIMATE NORMAL (NORMAL); POIKILOCYTOSIS SLIGHT; TARGET CELLS SLIGHT; TOTAL CELLS COUNTED 100
[2018-11-19 09:10] LABS: OVALOCYTES SLIGHT
[2018-11-19] MEDS: Lactobacillus Acidophilus 500 MU Cap PO SCH ×2 (10:58→22:38)
[2018-11-19] MEDS: Enoxaparin 40 mg Syringe SC SCH (10:58)
[2018-11-19] MEDS: Pantoprazole 40 mg EC Tab PO SCH (10:58)
[2018-11-19] MEDS: Multiple Vitamins Tab PO SCH (10:58)
[2018-11-19] MEDS: Sodium Chloride Nasal 0.65% Soln (30ml) NAS SCH ×2 (10:58→20:11)
--- NOTE | 2018-11-19 12:39 | CP.PCM.PN ---
Subjective - Date & Time of Evaluation Date of Evaluation: 11/19/18 Time of Evaluation: 08:00 - Subjective Subjective: Progress note for Dr. Osorio. Patient seen and examined at bedside. Nursing reports bowel movement immediately following PEG feedings. Patient complains of diarrhea, feeling tired and acid reflux. Denies chest pain, shortness of breath, cough, nausea, vomiting, abdominal pain. Objective - Vital Signs/Intake and Output Vital Signs (last 24 hours): Temp Pulse Resp BP Pulse Ox 98.5 F 75 20 120/73 100 11/19/18 07:00 11/19/18 07:00 11/19/18 07:00 11/19/18 07:00 11/19/18 07:00 Intake and Output: 11/19/18 11/19/18 06:59 18:59 Output Total 300 Balance -300 - Medications Medications: Current Medications Acetaminophen (Tylenol 325mg Tab) 650 mg PO Q6 PRN PRN Reason: Fever >100.4 F Albuterol/Ipratropium (Duoneb 3 Mg/0.5 Mg (3 Ml) Ud) 3 ml INH RQ6 [facility] Last Admin: 11/19/18 01:14 Dose: Not Given Dextrose (Dextrose 50% Inj) 0 ml IV STAT PRN; Protocol PRN Reason: Hypoglycemia Protocol Dextrose (Glutose 15) 0 gm PO ONCE PRN; Protocol PRN Reason: Hypoglycemia Protocol Enoxaparin Sodium (Lovenox) 40 mg SC DAILY [facility] Last Admin: 11/19/18 10:58 Dose: 40 mg Fluconazole (Diflucan) 100 mg PO DAILY [facility]; Protocol Last Admin: 11/19/18 11:39 Dose: 100 mg Folic Acid (Folic Acid) 1 mg PO DAILY [facility] Last Admin: 11/19/18 10:58 Dose: 1 mg Glucagon (Glucagen Diagnostic Kit) 0 mg IM STAT PRN; Protocol PRN Reason: Hypoglycemia Protocol Piperacillin Sod/Tazobactam (Sod 3.375 gm/ Sodium Chloride) 100 mls @ 200 mls/hr IVPB Q6H [facility]; Protocol Last Admin: 11/19/18 08:30 Dose: 200 mls/hr Insulin Human Regular (Novolin R) 0 unit SC ACHS [facility]; Protocol Last Admin: 11/19/18 12:26 Dose: 4 u Lactobacillus Acidophilus (Lactobacillus) 1 cap PO Q12H [facility] Last Admin: 11/19/18 10:58 Dose: 1 cap Mirtazapine (Remeron) 15 mg PO HS [facility] Last Admin: 11/18/18 21:27 Dose: 15 mg Multivitamins (Hexavitamin) 1 tab PO DAILY [facility] Last Admin: 11/19/18 10:58 Dose: 1 tab Nicotine (Nicoderm Cq) 1 patch TD DAILY [facility] Last Admin: 11/19/18 10:58 Dose: 1 patch Pantoprazole Sodium (Protonix Ec Tab) 40 mg PO DAILY [facility] Last Admin: 11/19/18 10:58 Dose: 40 mg Sertraline HCl (Zoloft) 25 mg PO DAILY [facility] Last Admin: 11/19/18 10:58 Dose: 25 mg Sodium Chloride ([place] Baby Saline 30 Ml) 1 ml RODNEY BID [facility] Last Admin: 11/19/18 10:58 Dose: 1 spr Thiamine HCl (Vitamin B1 Tab) 100 mg PO DAILY [facility] Last Admin: 11/19/18 10:58 Dose: 100 mg - Labs Labs: 11/19/18 07:13 11/19/18 07:13 PT 15.2 SECONDS (9.7-12.2) H 11/12/18 06:13 INR 1.4 11/12/18 06:13 APTT 29 SECONDS (21-34) 11/12/18 06:13 - Constitutional Appears: No Acute Distress, Chronically Ill - Head Exam Head Exam: ATRAUMATIC, NORMOCEPHALIC - Eye Exam Eye Exam: EOMI, Normal appearance, PERRL - ENT Exam ENT Exam: Mucous Membranes Moist - Neck Exam Neck Exam: Full ROM, Normal Inspection - Respiratory Exam Respiratory Exam: Decreased Breath Sounds (diffusely) - Cardiovascular Exam Cardiovascular Exam: REGULAR RHYTHM, +S1, +S2 - GI/Abdominal Exam GI & Abdominal Exam: Soft. absent: Distended, Firm, Guarding, Rigid, Tenderness Additional comments: PEG tube in place, area clean and dry without signs of infection - Extremities Exam Extremities Exam: Calf Tenderness, Full ROM. absent: Pedal Edema, Tenderness - Back Exam Additional comments: Picc line LUE - Neurological Exam Neurological Exam: Alert, Awake, Oriented x3 - Psychiatric Exam Psychiatric exam: Normal Affect - Skin Skin Exam: Dry, Intact, Pallor, Warm Assessment and Plan - Assessment and Plan (Free Text) Plan: Sepsis Urinary tract infection Bacteremia Empyema * Code sepsis 11/08/18 * Infectious Disease (Dr. Bojorquez) on board-->help appreciated * Criteria: leukocytosis, hypotension, bandemia, hypothermia, source of infections: empyema, uti, bacteremia * Lactic acid: 3.5-->1.7 * elevated procalcitonin: 1.49-->0.83 on 11/11/18 * Blood culture (11/08/18): Klebsiella pneumoniae * Sensitive to Zosyn with LUPE of less than 4 * Repeat Blood culture (11/11/18): finalized as negative at 5 days * Urine culture (11/08/18): Enterococcus Faecalis * Repeat Urine Culture (11/15/18): NO growth * MRSA (11/08/18): not detected * Pleural fluid (11/09/18): no acid fast bacilli * Pleural fluid (11/09/18): Streptococcus anginosus which is sensitive to Vancomycin which the patient was restarted on 11/11/18 * Chest xray (11/08/18): layering left pleural effusion and/or consolidation * Chest xray (11/09/18): slight increase in left perihilar/basilar opacity. small left pleural effusion, grossly unchanged * Iv abx: * Zosyn 3.375 g IV Q6H (active since 11/08/18) * Vancomycin 1 gram IV Q12 (11/08/18 through 11/11/18): spoke with ID Dr. Bojorquez 11/12/18: Zosyn will cover the Klebsiella, Streptococcus and the Enterococcus * CT Chest 11/12/18: moderate left sided hydropneumothorax, moderate right pleural effusion, bilateral lower lobe consolidations, mediastinal lymphadenopathy, moderate hiatal hernia with gastric wall thickening Empyema; Loculated Left Pleural effusion * Thoracic Surgery (Dr. Bro) on board-->help appreciated * VATS procedure cancelled on 11/12/18 * Repeat CT Chest ordered 11/12/18 * Chest xray (11.08.18): layering left pleural effusion and/or consolidation * Chest xray (11/09/18): slight increase in left perihilar/basilar opacity. small left pleural effusion, grossly unchanged * S/P IR thoracentesis 11/09/18; placement of pigtail catheter * Pleural fluid (11/09/18): Streptococcus anginosus which is sensitive to Vancomycin which the patient was restarted on 11/11/18 * Pleural fluid (11/09/18): moderate PMNs, moderate gram positive cocci * Echocardiogram (08/20/18): left ventricular function is normal, left ventricular ejection fraction is within the the normal range about 55%, mild mitral valve regurgitation noted Anemia * Thoracic Surgery (Dr. Bro) on board-->help appreciated * GI (Dr. Aaron) on board-->help appreciated * Likely secondary to the suspicious mass found on EGD performed on 11/12/18? * On admission: hgb 10-->5 * blood transfusion consent obtained by resident 11/08/18 * given 3 units of PRBC overnight night and 1 FFP unit * rectal negative * ferritin low * iron low: will not repleat at this time considering multiple infections as documented in Assessment/Plan #1 * tibc: 148 low * transferrin low * Hgb 7.9 on 11/19/18 * Reticulocyte count: 2.2--> reticulocyte index: 0.12-->hypoproliferation <2 * Folate low * B12: 967 (low) * Occult blood: negative * CT Chest/Abdomen/pelvis (11/08/18): ascites, anasarca, interval loculated left pleural effusion, appearance of GE junction is indeterminate here a hiatal hernia vs mass Cirrhosis * GI (Dr. Aaron) on board-->help appreciated * CT Chest/Abdomen/pelvis IV contrast (11/08/18): prior amount of ascites and anasarca has improved. further findings per report * Abdominal US (08/18/18): limited study. echogenic liver may be seen in hepatic parenchymal disease or fatty infiltrate. nodular hepatic contour. cholelithiasis. gallbladder wall thickening/pericholecystic edema. negative sonographic Cespedes's small abdominal ascites * Hepatitis Panel negative * Blood alcohol <10 * Patient notes he has drinking 3 shots of vodka X 30 years. Diabetes mellitus 2 * Hgba1c: 8.1 * Patient is off metformin given elevated lactic on admission * RISS ACHS * Accuchecks QAC and HS GE junction Mass * Thoracic Surgery (Dr. Bro) on board-->help appreciated * GI (Dr. Aaron) on board-->help appreciated * CT Chest/Abdomen/pelvis (11/08/18): ascites, anasarca, interval loculated left pleural effusion, appearance of GE junction is indeterminate here a hiatal hernia vs mass * Patient is S/P Upper EGD on 11/12/18 and pathology from biopsy has confirmed Poorly Differentiated Squamous Cell CA * Heme/Oncologist Dr. Melody Paredes recommendation: outpatient PET Scan for staging and if NO mets then Chemo+Radiation and Surgical evaluation * Palliative Care Nurse Rosas is on board Alcohol use * Ciwa protocol * Aspiration precautions * Seizure precautions * Folic acid 1mg PO Daily * MVI tab PO daily * Thiamine 100mg PO daily * 3 shots of vodka X 30 years history * Monitor for withdrawal; patient is not currently in withdrawal * Abdominal US (08/18/18): limited study. Echogenic liver may be seen in hepatic parenchymal disease or fatty infiltrate. Nodular hepatic contour. cholelithiasis. Gallbladder wall thickening/pericholecystic edema. Negative sonographic Cespedes's small abdominal ascites Tobacco use * 1 ppd X30 years * Nicotine patch daily * Advised smoking cessation Cachexia * Related to alcohol, smoking, malnutrition, AND likely related to suspicious GE mass? Status: Acute Ulcer of sacral region, stage 1 * Wound Care Nurse Joseph Amaya is on board: Aloe Simms and continue to turn patient every 2 hours * Exam on 11/16/18 continues to reveal nonblanchable erythema to the upper buttocks and lower sacrum with NO skin breakdown noted Prophylactic measure * PT/OT eval * Protonix 40mg IV q12H * Full code * Lovenox 40mg subq daily for DVT ppx * Bilateral LE Venous Doppler 11/12/18: NO DVTs Disposition: As per ID, continue IV abx for total 14 days minimum Patient DNI/DNR F/u Dietary for adjustment of PEG tube feedings due to diarrhea Plan for Subacute Rehab ([facility]) once patient continues to tolerate PEG tube feedings (started on 11/16/18) Adult Protective Services through [facility] Case discussed with Dr. Osorio. Berenice Barnett, PGY-1
--- NOTE | 2018-11-19 13:48 | CP.PCM.PN ---
Subjective - Date & Time of Evaluation Date of Evaluation: 11/19/18 Time of Evaluation: 11:00 - Subjective Subjective: patient is post PEG on 11/15/18. Reports urge to move his bowels right after is being fed via PEG. Stool is soft. Patient feels generally weak, able to sit in the chair, with assistance. Objective - Vital Signs/Intake and Output Vital Signs (last 24 hours): Temp Pulse Resp BP Pulse Ox 98.5 F 75 20 120/73 100 11/19/18 07:00 11/19/18 07:00 11/19/18 07:00 11/19/18 07:00 11/19/18 07:00 Intake and Output: 11/19/18 11/19/18 06:59 18:59 Output Total 300 Balance -300 - Medications Medications: Current Medications Acetaminophen (Tylenol 325mg Tab) 650 mg PO Q6 PRN PRN Reason: Fever >100.4 F Albuterol/Ipratropium (Duoneb 3 Mg/0.5 Mg (3 Ml) Ud) 3 ml INH RQ6 [facility] Last Admin: 11/19/18 13:40 Dose: Not Given Dextrose (Dextrose 50% Inj) 0 ml IV STAT PRN; Protocol PRN Reason: Hypoglycemia Protocol Dextrose (Glutose 15) 0 gm PO ONCE PRN; Protocol PRN Reason: Hypoglycemia Protocol Enoxaparin Sodium (Lovenox) 40 mg SC DAILY [facility] Last Admin: 11/19/18 10:58 Dose: 40 mg Fluconazole (Diflucan) 100 mg PO DAILY [facility]; Protocol Last Admin: 11/19/18 11:39 Dose: 100 mg Folic Acid (Folic Acid) 1 mg PO DAILY [facility] Last Admin: 11/19/18 10:58 Dose: 1 mg Glucagon (Glucagen Diagnostic Kit) 0 mg IM STAT PRN; Protocol PRN Reason: Hypoglycemia Protocol Piperacillin Sod/Tazobactam (Sod 3.375 gm/ Sodium Chloride) 100 mls @ 200 mls/hr IVPB Q6H [facility]; Protocol Last Admin: 11/19/18 08:30 Dose: 200 mls/hr Insulin Human Regular (Novolin R) 0 unit SC ACHS [facility]; Protocol Lactobacillus Acidophilus (Lactobacillus) 1 cap PO Q12H [facility] Last Admin: 11/19/18 10:58 Dose: 1 cap Mirtazapine (Remeron) 15 mg PO HS [facility] Last Admin: 11/18/18 21:27 Dose: 15 mg Multivitamins (Hexavitamin) 1 tab PO DAILY [facility] Last Admin: 11/19/18 10:58 Dose: 1 tab Nicotine (Nicoderm Cq) 1 patch TD DAILY [facility] Last Admin: 11/19/18 10:58 Dose: 1 patch Pantoprazole Sodium (Protonix Ec Tab) 40 mg PO DAILY [facility] Last Admin: 11/19/18 10:58 Dose: 40 mg Sertraline HCl (Zoloft) 25 mg PO DAILY [facility] Last Admin: 11/19/18 10:58 Dose: 25 mg Sodium Chloride ([place] Baby Saline 30 Ml) 1 ml RODNEY BID [facility] Last Admin: 11/19/18 10:58 Dose: 1 spr Thiamine HCl (Vitamin B1 Tab) 100 mg PO DAILY [facility] Last Admin: 11/19/18 10:58 Dose: 100 mg - Labs Labs: 11/19/18 07:13 11/19/18 07:13 PT 15.2 SECONDS (9.7-12.2) H 11/12/18 06:13 INR 1.4 11/12/18 06:13 APTT 29 SECONDS (21-34) 11/12/18 06:13 - Constitutional Appears: No Acute Distress, Chronically Ill - Head Exam Head Exam: ATRAUMATIC, NORMAL INSPECTION, NORMOCEPHALIC - Eye Exam Eye Exam: EOMI, Normal appearance, PERRL Pupil Exam: NORMAL ACCOMODATION, PERRL - ENT Exam ENT Exam: Mucous Membranes Moist, Normal Exam - Neck Exam Neck Exam: Full ROM, Normal Inspection - Respiratory Exam Respiratory Exam: Decreased Breath Sounds, NORMAL BREATHING PATTERN - Cardiovascular Exam Cardiovascular Exam: Tachycardia - GI/Abdominal Exam Additional comments: PEG - Rectal Exam Rectal Exam: Deferred - Exam Exam: NORMAL INSPECTION - Back Exam Back Exam: NORMAL INSPECTION - Neurological Exam Neurological Exam: Alert, Oriented x3 Neuro motor strength exam: Left Upper Extremity: 2/1, Right Upper Extremity: 2/1, Left Lower Extremity: 0, Right Lower Extremity: 0 - Psychiatric Exam Psychiatric exam: Flat Affect - Skin Skin Exam: Dry, Intact, Pallor, Warm Assessment and Plan - Assessment and Plan (Free Text) Assessment: Patient examined in chair, alert, oriented X 3 with affect that is flat. Patient is polite, participates in discussion but only with short answers, giving impression as if he would like to be left alone. Patient admitted to me going to bathroom right after being fed via PEG. This is new to him since received PEG. Patient is given 6 feeding boluses/day. I discussed this with his primary RN and suggested Dietitian fallow up. In discussion with Doctor Ludy Sebastian and Doctor Jo I learned that patient's living condition is unacceptable full of trash and empty liqueur bottles as reported by patient's sister Korin. Sister was concerned that patient should not be discharged home to those conditions. I discussed with patient today his plans and expectations of care. he is aware of his cancer diagnosis and need for a PAT scan as an outpatient before any further treatment consider by Oncologist. Patient is planning on going to [facility] from here than home. Patient admits that he would need some help at home to assist him with ADLs, especially due to his inability to ambulate. I shared my concerns about his plans especially due to the fact that his 96 yo mother lives there with him. we agreed to talk to his sister Korin and see if his mother could be placed to a NH as a intermediate patient. Code status discussed. DNR/DNI introduced. Patient was very clear that he would want to be treated by all means available to fight against his cancer including surgeries and/or chemo Tx. However if those measures fail he would want to be allowed natural . Patient was specific against CPR and MV support. he signed POLST. I shared this with nursing and Doctor Jo. Impression * Cancer of esophagus * S/P PEG * loose stools after bolus feed * Unable to bear weight to LEs * There is concern regarding patient's living condition at home and his 96 yo mother who lives with home * Patient is looking forward Radiation or chemo Tx for cancer treatment * Patient requesting DNR/DNI status Suggestion * Refer to Dietitian regarding PEG food intolerance * Continue probiotics * Aspiration precautions * [facility] discharge planing * DNR/DNI I spoke to patient's sister Korin who takes care of their mother at home. Korin does not feel the mother was at need for LTC placement as she takes care of her. She is more concerned with unconditional state of patient's apartment which may take up to 2 -3 months to be cleaned. Advance care planing 47 min.
--- NOTE | 2018-11-19 21:56 | CP.PCM.PN ---
Subjective - Date & Time of Evaluation Date of Evaluation: 11/15/18 Time of Evaluation: 12:00 - Subjective Subjective: No complaints. Objective - Vital Signs/Intake and Output Vital Signs (last 24 hours): Temp Pulse Resp BP Pulse Ox 98.5 F 78 20 120/73 100 11/19/18 07:00 11/19/18 16:00 11/19/18 07:00 11/19/18 07:00 11/19/18 07:00 Intake and Output: 11/19/18 11/20/18 18:59 06:59 Intake Total 600 Output Total 600 Balance 0 - Medications Medications: Current Medications Acetaminophen (Tylenol 325mg Tab) 650 mg PO Q6 PRN PRN Reason: Fever >100.4 F Albuterol/Ipratropium (Duoneb 3 Mg/0.5 Mg (3 Ml) Ud) 3 ml INH RQ6 [facility] Last Admin: 11/19/18 19:42 Dose: 3 ml Dextrose (Dextrose 50% Inj) 0 ml IV STAT PRN; Protocol PRN Reason: Hypoglycemia Protocol Dextrose (Glutose 15) 0 gm PO ONCE PRN; Protocol PRN Reason: Hypoglycemia Protocol Enoxaparin Sodium (Lovenox) 40 mg SC DAILY [facility] Last Admin: 11/19/18 10:58 Dose: 40 mg Fluconazole (Diflucan) 100 mg PO DAILY [facility]; Protocol Last Admin: 11/19/18 11:39 Dose: 100 mg Folic Acid (Folic Acid) 1 mg PO DAILY [facility] Last Admin: 11/19/18 10:58 Dose: 1 mg Glucagon (Glucagen Diagnostic Kit) 0 mg IM STAT PRN; Protocol PRN Reason: Hypoglycemia Protocol Piperacillin Sod/Tazobactam (Sod 3.375 gm/ Sodium Chloride) 100 mls @ 200 mls/hr IVPB Q6H [facility]; Protocol Last Admin: 11/19/18 13:53 Dose: 200 mls/hr Insulin Human Regular (Novolin R) 0 unit SC ACHS [facility]; Protocol Last Admin: 11/19/18 20:09 Dose: 3 units Lactobacillus Acidophilus (Lactobacillus) 1 cap PO Q12H [facility] Last Admin: 11/19/18 10:58 Dose: 1 cap Mirtazapine (Remeron) 15 mg PO HS [facility] Last Admin: 11/18/18 21:27 Dose: 15 mg Multivitamins (Hexavitamin) 1 tab PO DAILY [facility] Last Admin: 11/19/18 10:58 Dose: 1 tab Nicotine (Nicoderm Cq) 1 patch TD DAILY [facility] Last Admin: 11/19/18 10:58 Dose: 1 patch Pantoprazole Sodium (Protonix Ec Tab) 40 mg PO DAILY [facility] Last Admin: 11/19/18 10:58 Dose: 40 mg Sertraline HCl (Zoloft) 25 mg PO DAILY [facility] Last Admin: 11/19/18 10:58 Dose: 25 mg Sodium Chloride ([place] Baby Saline 30 Ml) 1 ml RODNEY BID [facility] Last Admin: 11/19/18 20:11 Dose: 1 spr Thiamine HCl (Vitamin B1 Tab) 100 mg PO DAILY [facility] Last Admin: 11/19/18 10:58 Dose: 100 mg - Labs Labs: 11/19/18 07:13 11/19/18 07:13 PT 15.2 SECONDS (9.7-12.2) H 11/12/18 06:13 INR 1.4 11/12/18 06:13 APTT 29 SECONDS (21-34) 11/12/18 06:13 - Head Exam Head Exam: ATRAUMATIC - Eye Exam Eye Exam: Normal appearance - ENT Exam ENT Exam: Mucous Membranes Dry - Respiratory Exam Respiratory Exam: NORMAL BREATHING PATTERN - Cardiovascular Exam Cardiovascular Exam: +S1, +S2 - GI/Abdominal Exam GI & Abdominal Exam: Normal Bowel Sounds Assessment and Plan (1) Anemia Assessment & Plan: iron deficiency anemia and chronic disease iron supplementation when infection cleared Status: Acute (2) Coagulopathy Assessment & Plan: likely nutritional Status: Acute (3) Esophageal mass Assessment & Plan: prelim squamous cell carcinoma outpatient PET CT for staging if no distant mets; would benefit from chemo+radiation and evaluation for surgical candidacy recommend feeding tube; pt wants to think about it Status: Acute
--- NOTE | 2018-11-19 21:59 | CP.PCM.PN ---
Subjective - Date & Time of Evaluation Date of Evaluation: 11/16/18 Time of Evaluation: 19:00 - Subjective Subjective: No complaints. Objective - Vital Signs/Intake and Output Vital Signs (last 24 hours): Temp Pulse Resp BP Pulse Ox 98.5 F 78 20 120/73 100 11/19/18 07:00 11/19/18 16:00 11/19/18 07:00 11/19/18 07:00 11/19/18 07:00 Intake and Output: 11/19/18 11/20/18 18:59 06:59 Intake Total 600 Output Total 600 Balance 0 - Medications Medications: Current Medications Acetaminophen (Tylenol 325mg Tab) 650 mg PO Q6 PRN PRN Reason: Fever >100.4 F Albuterol/Ipratropium (Duoneb 3 Mg/0.5 Mg (3 Ml) Ud) 3 ml INH RQ6 [facility] Last Admin: 11/19/18 19:42 Dose: 3 ml Dextrose (Dextrose 50% Inj) 0 ml IV STAT PRN; Protocol PRN Reason: Hypoglycemia Protocol Dextrose (Glutose 15) 0 gm PO ONCE PRN; Protocol PRN Reason: Hypoglycemia Protocol Enoxaparin Sodium (Lovenox) 40 mg SC DAILY [facility] Last Admin: 11/19/18 10:58 Dose: 40 mg Fluconazole (Diflucan) 100 mg PO DAILY [facility]; Protocol Last Admin: 11/19/18 11:39 Dose: 100 mg Folic Acid (Folic Acid) 1 mg PO DAILY [facility] Last Admin: 11/19/18 10:58 Dose: 1 mg Glucagon (Glucagen Diagnostic Kit) 0 mg IM STAT PRN; Protocol PRN Reason: Hypoglycemia Protocol Piperacillin Sod/Tazobactam (Sod 3.375 gm/ Sodium Chloride) 100 mls @ 200 mls/hr IVPB Q6H [facility]; Protocol Last Admin: 11/19/18 13:53 Dose: 200 mls/hr Insulin Human Regular (Novolin R) 0 unit SC ACHS [facility]; Protocol Last Admin: 11/19/18 20:09 Dose: 3 units Lactobacillus Acidophilus (Lactobacillus) 1 cap PO Q12H [facility] Last Admin: 11/19/18 10:58 Dose: 1 cap Mirtazapine (Remeron) 15 mg PO HS [facility] Last Admin: 11/18/18 21:27 Dose: 15 mg Multivitamins (Hexavitamin) 1 tab PO DAILY [facility] Last Admin: 11/19/18 10:58 Dose: 1 tab Nicotine (Nicoderm Cq) 1 patch TD DAILY [facility] Last Admin: 11/19/18 10:58 Dose: 1 patch Pantoprazole Sodium (Protonix Ec Tab) 40 mg PO DAILY [facility] Last Admin: 11/19/18 10:58 Dose: 40 mg Sertraline HCl (Zoloft) 25 mg PO DAILY [facility] Last Admin: 11/19/18 10:58 Dose: 25 mg Sodium Chloride ([place] Baby Saline 30 Ml) 1 ml RODNEY BID [facility] Last Admin: 11/19/18 20:11 Dose: 1 spr Thiamine HCl (Vitamin B1 Tab) 100 mg PO DAILY [facility] Last Admin: 11/19/18 10:58 Dose: 100 mg - Labs Labs: 11/19/18 07:13 11/19/18 07:13 PT 15.2 SECONDS (9.7-12.2) H 11/12/18 06:13 INR 1.4 11/12/18 06:13 APTT 29 SECONDS (21-34) 11/12/18 06:13 - Head Exam Head Exam: ATRAUMATIC - Eye Exam Eye Exam: Normal appearance - ENT Exam ENT Exam: Mucous Membranes Dry - Respiratory Exam Respiratory Exam: NORMAL BREATHING PATTERN - Cardiovascular Exam Cardiovascular Exam: +S1, +S2 - GI/Abdominal Exam GI & Abdominal Exam: Normal Bowel Sounds Assessment and Plan (1) Anemia Assessment & Plan: iron deficiency anemia and chronic disease iron supplementation when infection cleared Status: Acute (2) Esophageal mass Assessment & Plan: squamous cell carcinoma outpatient PET CT for staging if no distant mets; would benefit from chemo+radiation and evaluation for surgical candidacy s/p feeding tube Status: Acute
--- NOTE | 2018-11-19 22:02 | CP.PCM.PN ---
Subjective - Date & Time of Evaluation Date of Evaluation: 11/17/18 Time of Evaluation: 12:00 - Subjective Subjective: No complaints Objective - Vital Signs/Intake and Output Vital Signs (last 24 hours): Temp Pulse Resp BP Pulse Ox 98.5 F 78 20 120/73 100 11/19/18 07:00 11/19/18 16:00 11/19/18 07:00 11/19/18 07:00 11/19/18 07:00 Intake and Output: 11/19/18 11/20/18 18:59 06:59 Intake Total 600 Output Total 600 Balance 0 - Medications Medications: Current Medications Acetaminophen (Tylenol 325mg Tab) 650 mg PO Q6 PRN PRN Reason: Fever >100.4 F Albuterol/Ipratropium (Duoneb 3 Mg/0.5 Mg (3 Ml) Ud) 3 ml INH RQ6 EDER Last Admin: 11/19/18 19:42 Dose: 3 ml Dextrose (Dextrose 50% Inj) 0 ml IV STAT PRN; Protocol PRN Reason: Hypoglycemia Protocol Dextrose (Glutose 15) 0 gm PO ONCE PRN; Protocol PRN Reason: Hypoglycemia Protocol Enoxaparin Sodium (Lovenox) 40 mg SC DAILY [facility]ER Last Admin: 11/19/18 10:58 Dose: 40 mg Fluconazole (Diflucan) 100 mg PO DAILY EDER; Protocol Last Admin: 11/19/18 11:39 Dose: 100 mg Folic Acid (Folic Acid) 1 mg PO DAILY [facility]ER Last Admin: 11/19/18 10:58 Dose: 1 mg Glucagon (Glucagen Diagnostic Kit) 0 mg IM STAT PRN; Protocol PRN Reason: Hypoglycemia Protocol Piperacillin Sod/Tazobactam (Sod 3.375 gm/ Sodium Chloride) 100 mls @ 200 mls/hr IVPB Q6H EDER; Protocol Last Admin: 11/19/18 13:53 Dose: 200 mls/hr Insulin Human Regular (Novolin R) 0 unit SC ACHS EDER; Protocol Last Admin: 11/19/18 20:09 Dose: 3 units Lactobacillus Acidophilus (Lactobacillus) 1 cap PO Q12H EDER Last Admin: 11/19/18 10:58 Dose: 1 cap Mirtazapine (Remeron) 15 mg PO HS EDER Last Admin: 11/18/18 21:27 Dose: 15 mg Multivitamins (Hexavitamin) 1 tab PO DAILY [facility]ER Last Admin: 11/19/18 10:58 Dose: 1 tab Nicotine (Nicoderm Cq) 1 patch TD DAILY [facility] Last Admin: 11/19/18 10:58 Dose: 1 patch Pantoprazole Sodium (Protonix Ec Tab) 40 mg PO DAILY [facility] Last Admin: 11/19/18 10:58 Dose: 40 mg Sertraline HCl (Zoloft) 25 mg PO DAILY [facility] Last Admin: 11/19/18 10:58 Dose: 25 mg Sodium Chloride ([place] Baby Saline 30 Ml) 1 ml RODNEY BID [facility] Last Admin: 11/19/18 20:11 Dose: 1 spr Thiamine HCl (Vitamin B1 Tab) 100 mg PO DAILY [facility] Last Admin: 11/19/18 10:58 Dose: 100 mg - Labs Labs: 11/19/18 07:13 11/19/18 07:13 PT 15.2 SECONDS (9.7-12.2) H 11/12/18 06:13 INR 1.4 11/12/18 06:13 APTT 29 SECONDS (21-34) 11/12/18 06:13 - Head Exam Head Exam: ATRAUMATIC - Eye Exam Eye Exam: Normal appearance - ENT Exam ENT Exam: Mucous Membranes Dry - Respiratory Exam Respiratory Exam: NORMAL BREATHING PATTERN - Cardiovascular Exam Cardiovascular Exam: +S1, +S2 - GI/Abdominal Exam GI & Abdominal Exam: Normal Bowel Sounds Assessment and Plan (1) Anemia Assessment & Plan: iron deficiency anemia and chronic disease iron supplementation when infection cleared Status: Acute (2) Esophageal mass Assessment & Plan: squamous cell carcinoma outpatient PET CT for staging if no distant mets; would benefit from chemo+radiation and evaluation for surgical candidacy s/p feeding tube Status: Acute
--- NOTE | 2018-11-19 22:03 | CP.PCM.PN ---
Subjective - Date & Time of Evaluation Date of Evaluation: 11/19/18 Time of Evaluation: 17:00 - Subjective Subjective: No complaints. Objective - Vital Signs/Intake and Output Vital Signs (last 24 hours): Temp Pulse Resp BP Pulse Ox 98.5 F 78 20 120/73 100 11/19/18 07:00 11/19/18 16:00 11/19/18 07:00 11/19/18 07:00 11/19/18 07:00 Intake and Output: 11/19/18 11/20/18 18:59 06:59 Intake Total 600 Output Total 600 Balance 0 - Medications Medications: Current Medications Acetaminophen (Tylenol 325mg Tab) 650 mg PO Q6 PRN PRN Reason: Fever >100.4 F Albuterol/Ipratropium (Duoneb 3 Mg/0.5 Mg (3 Ml) Ud) 3 ml INH RQ6 EDER Last Admin: 11/19/18 19:42 Dose: 3 ml Dextrose (Dextrose 50% Inj) 0 ml IV STAT PRN; Protocol PRN Reason: Hypoglycemia Protocol Dextrose (Glutose 15) 0 gm PO ONCE PRN; Protocol PRN Reason: Hypoglycemia Protocol Enoxaparin Sodium (Lovenox) 40 mg SC DAILY [facility]ER Last Admin: 11/19/18 10:58 Dose: 40 mg Fluconazole (Diflucan) 100 mg PO DAILY EDER; Protocol Last Admin: 11/19/18 11:39 Dose: 100 mg Folic Acid (Folic Acid) 1 mg PO DAILY [facility] Last Admin: 11/19/18 10:58 Dose: 1 mg Glucagon (Glucagen Diagnostic Kit) 0 mg IM STAT PRN; Protocol PRN Reason: Hypoglycemia Protocol Piperacillin Sod/Tazobactam (Sod 3.375 gm/ Sodium Chloride) 100 mls @ 200 mls/hr IVPB Q6H EDER; Protocol Last Admin: 11/19/18 13:53 Dose: 200 mls/hr Insulin Human Regular (Novolin R) 0 unit SC ACHS EDER; Protocol Last Admin: 11/19/18 20:09 Dose: 3 units Lactobacillus Acidophilus (Lactobacillus) 1 cap PO Q12H EDER Last Admin: 11/19/18 10:58 Dose: 1 cap Mirtazapine (Remeron) 15 mg PO HS EDER Last Admin: 11/18/18 21:27 Dose: 15 mg Multivitamins (Hexavitamin) 1 tab PO DAILY [facility] Last Admin: 11/19/18 10:58 Dose: 1 tab Nicotine (Nicoderm Cq) 1 patch TD DAILY [facility] Last Admin: 11/19/18 10:58 Dose: 1 patch Pantoprazole Sodium (Protonix Ec Tab) 40 mg PO DAILY [facility] Last Admin: 11/19/18 10:58 Dose: 40 mg Sertraline HCl (Zoloft) 25 mg PO DAILY [facility] Last Admin: 11/19/18 10:58 Dose: 25 mg Sodium Chloride ([place] Baby Saline 30 Ml) 1 ml RODNEY BID [facility] Last Admin: 11/19/18 20:11 Dose: 1 spr Thiamine HCl (Vitamin B1 Tab) 100 mg PO DAILY [facility] Last Admin: 11/19/18 10:58 Dose: 100 mg - Labs Labs: 11/19/18 07:13 11/19/18 07:13 PT 15.2 SECONDS (9.7-12.2) H 11/12/18 06:13 INR 1.4 11/12/18 06:13 APTT 29 SECONDS (21-34) 11/12/18 06:13 - Head Exam Head Exam: ATRAUMATIC - Eye Exam Eye Exam: Normal appearance - ENT Exam ENT Exam: Mucous Membranes Dry - Respiratory Exam Respiratory Exam: NORMAL BREATHING PATTERN - Cardiovascular Exam Cardiovascular Exam: +S1, +S2 - GI/Abdominal Exam GI & Abdominal Exam: Normal Bowel Sounds Assessment and Plan (1) Anemia Assessment & Plan: iron deficiency anemia and chronic disease iron supplementation when infection cleared Status: Acute (2) Esophageal mass Assessment & Plan: squamous cell carcinoma outpatient PET CT for staging if no distant mets; would benefit from chemo+radiation and evaluation for surgical candidacy s/p feeding tube Status: Acute
[2018-11-20] MEDS: Albuterol-Ipratrop 3 mg / 0.5 (3 ml) UD INH SCH ×3 (01:49→20:24)
[2018-11-20] MEDS: Piperacillin/Tazobact 3.375 GM in Sodium Chloride 100 ML IVPB SCH ×4 (01:55→21:56)
[2018-11-20 08:02] LABS: BASO # 0.1 K/uL (0.0-0.2); BASO % 0.9 % (0.0-2.0); EOS # 0.3 K/uL (0.0-0.7); EOS % 2.6 % (0.0-4.0); HEMOGLOBIN 7.5 g/dL (12.0-18.0); LYMPH # 1.2 K/uL (1.0-4.3); LYMPH % 9.4 % (20.0-40.0); MEAN CELL VOLUME 79.5 fL (80.0-94.0); MEAN CORPUSCULAR HEMOGLOBIN 25.8 pg (27.0-31.0); MEAN CORPUSCULAR HGB CONC 32.5 g/dL (33.0-37.0); MEAN PLATELET VOLUME 8.2 fL (7.2-11.7); MONO % 8.1 % (0.0-10.0); NEUT # 9.9 K/uL (1.8-7.0); PLATELET COUNT 165 K/uL (130-400); RED CELL DISTRIBUTION WIDTH 19.3 % (11.5-14.5); WHITE BLOOD COUNT 12.5 K/uL (4.8-10.8)
[2018-11-20 08:19] LABS: ALB/GLOB RATIO 0.7 (1.0-2.1); ALBUMIN 2.3 g/dL (3.5-5.0); ALT/SGPT 14 U/L (21-72); AST/SGOT 12 U/L (17-59); BLOOD UREA NITROGEN 7 mg/dL (9-20); CALCIUM 10.4 mg/dl (8.6-10.4); GFR NON-AFRICAN AMERICAN > 60
[2018-11-20] MEDS: (Novolin R) Insulin Human Regular 100 units/ml vial SC SCH ×4 (08:31→21:53)
[2018-11-20 09:30] LABS: ANISOCYTOSIS SLIGHT; BANDS 5 % (0-2); EOSINOPHIL 2 % (0-4); LYMPHOCYTE 9 % (20-40); MONOCYTE 7 % (0-10); NEUTROPHIL 77 % (50-75); PLATELET ESTIMATE NORMAL (NORMAL); TOTAL CELLS COUNTED 100
[2018-11-20 09:31] LABS: HYPOCHROMIC SLIGHT; POIKILOCYTOSIS SLIGHT; TARGET CELLS SLIGHT
[2018-11-20] MEDS: Lactobacillus Acidophilus 500 MU Cap PO SCH ×2 (10:18→21:52)
[2018-11-20] MEDS: Enoxaparin 40 mg Syringe SC SCH (10:18)
[2018-11-20] MEDS: Multiple Vitamins Tab PO SCH (10:18)
[2018-11-20] MEDS: Pantoprazole 40 mg EC Tab PO SCH (10:18)
[2018-11-20] MEDS: Sodium Chloride Nasal 0.65% Soln (30ml) NAS SCH (10:19)
--- NOTE | 2018-11-20 12:26 | CP.PCM.PN ---
Subjective - Date & Time of Evaluation Date of Evaluation: 11/20/18 Time of Evaluation: 08:00 - Subjective Subjective: no fever weak nad Objective - Vital Signs/Intake and Output Vital Signs (last 24 hours): Temp Pulse Resp BP Pulse Ox 98.7 F 73 20 140/80 100 11/20/18 07:30 11/20/18 07:30 11/20/18 07:30 11/20/18 07:30 11/20/18 07:30 Intake and Output: 11/20/18 11/20/18 06:59 18:59 Output Total 450 Balance -450 - Medications Medications: Current Medications Acetaminophen (Tylenol 325mg Tab) 650 mg PO Q6 PRN PRN Reason: Fever >100.4 F Albuterol/Ipratropium (Duoneb 3 Mg/0.5 Mg (3 Ml) Ud) 3 ml INH RQ6 EDER Last Admin: 11/20/18 09:05 Dose: 3 ml Dextrose (Dextrose 50% Inj) 0 ml IV STAT PRN; Protocol PRN Reason: Hypoglycemia Protocol Dextrose (Glutose 15) 0 gm PO ONCE PRN; Protocol PRN Reason: Hypoglycemia Protocol Enoxaparin Sodium (Lovenox) 40 mg SC DAILY [facility]ER Last Admin: 11/20/18 10:18 Dose: 40 mg Fluconazole (Diflucan) 100 mg PO DAILY [facility]ER; Protocol Last Admin: 11/20/18 10:19 Dose: 100 mg Folic Acid (Folic Acid) 1 mg PO DAILY [facility] Last Admin: 11/20/18 10:18 Dose: 1 mg Glucagon (Glucagen Diagnostic Kit) 0 mg IM STAT PRN; Protocol PRN Reason: Hypoglycemia Protocol Piperacillin Sod/Tazobactam (Sod 3.375 gm/ Sodium Chloride) 100 mls @ 200 mls/hr IVPB Q6H EDER; Protocol Last Admin: 11/20/18 08:30 Dose: 200 mls/hr Insulin Human Regular (Novolin R) 0 unit SC ACHS EDER; Protocol Last Admin: 11/20/18 11:48 Dose: 3 units Lactobacillus Acidophilus (Lactobacillus) 1 cap PO Q12H [facility]ER Last Admin: 11/20/18 10:18 Dose: 1 cap Mirtazapine (Remeron) 15 mg PO HS EDER Last Admin: 11/19/18 22:38 Dose: 15 mg Multivitamins (Hexavitamin) 1 tab PO DAILY [facility] Last Admin: 11/20/18 10:18 Dose: 1 tab Nicotine (Nicoderm Cq) 1 patch TD DAILY [facility] Last Admin: 11/20/18 10:18 Dose: 1 patch Pantoprazole Sodium (Protonix Ec Tab) 40 mg PO DAILY [facility] Last Admin: 11/20/18 10:18 Dose: 40 mg Sertraline HCl (Zoloft) 25 mg PO DAILY [facility] Last Admin: 11/20/18 10:18 Dose: 25 mg Sodium Chloride ([place] Baby Saline 30 Ml) 1 ml RODNEY BID [facility] Last Admin: 11/20/18 10:19 Dose: 1 spr Thiamine HCl (Vitamin B1 Tab) 100 mg PO DAILY [facility] Last Admin: 11/20/18 10:18 Dose: 100 mg - Labs Labs: 11/20/18 07:51 11/20/18 07:51 PT 15.2 SECONDS (9.7-12.2) H 11/12/18 06:13 INR 1.4 11/12/18 06:13 APTT 29 SECONDS (21-34) 11/12/18 06:13 - Constitutional Appears: Non-toxic, Cachectic, Chronically Ill - Head Exam Head Exam: NORMOCEPHALIC - Eye Exam Eye Exam: absent: Scleral icterus Pupil Exam: NORMAL ACCOMODATION - ENT Exam ENT Exam: Mucous Membranes Dry - Neck Exam Neck Exam: absent: Lymphadenopathy - Respiratory Exam Respiratory Exam: Decreased Breath Sounds - Cardiovascular Exam Cardiovascular Exam: REGULAR RHYTHM, +S1, +S2 - GI/Abdominal Exam GI & Abdominal Exam: Distended, Soft. absent: Tenderness - Rectal Exam Rectal Exam: Deferred - Exam Exam: NORMAL INSPECTION - Extremities Exam Extremities Exam: absent: Pedal Edema - Back Exam Back Exam: absent: CVA tenderness (L), CVA tenderness (R) - Neurological Exam Neurological Exam: Alert, Awake, CN II-XII Intact - Psychiatric Exam Psychiatric exam: Depressed - Skin Skin Exam: Dry Assessment and Plan (1) Esophageal mass Status: Acute (2) Abnormal CT scan, chest Status: Acute (3) Alcohol use Status: Acute (4) Anemia Status: Acute (5) Cachexia Status: Acute (6) Pleural effusion Status: Acute (7) Sepsis Status: Acute (8) Cirrhosis Status: Acute (9) Diabetes mellitus Status: Acute (10) Gram negative sepsis Status: Acute (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
--- NOTE | 2018-11-20 13:12 | CP.PCM.DIS ---
Provider - Provider Date of Admission: 11/08/18 14:22 Attending physician: Georgette Osorio DO Consults: 11/08/18 15:01 Cardiology Consult Routine Comment: Consulting Provider: Augustus Dodge Consulting Physician: Augustus Dodge Reason for Consult: hx CHF, hx abnormal stress test outpt, dyspnea on exertion 11/08/18 16:27 Wound Care [Nursing Referral for Wound Care] Routine Comment: Physician Instructions: Reason For Exam: wound care eval, please check sacral area 11/09/18 07:51 General Surgery Consult Routine Comment: Consulting Provider: Theron Patterson Consulting Physician: Theron Patterson Reason for Consult: L pleural effusion 11/09/18 10:20 Infectious Disease Consult Routine Comment: Consulting Provider: Jose Bojorquez Consulting Physician: Jose Bojorquez Reason for Consult: code sepsis, unclear etiology 11/11/18 19:32 Psychiatry Consult Routine Comment: Consulting Provider: Lissy Xiao Consulting Physician: Lissy Xiao Reason for Consult: eval for depression, longstanding alcohol/smoker/caregiver stress 11/13/18 08:28 Hematology Oncology Consult Routine Comment: Consulting Provider: Devante Paredes Consulting Physician: Devante Paredes Reason for Consult: 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 11/09/18 10:58 Other: Please Indicate Mycobacterial Culture - Preliminary 11/15/18 01:41 Urine Random Urine Culture - Final No Growth (<1,000 CFU/ML) 11/11/18 05:49 Blood Blood Culture - Final NO GROWTH AFTER 5 DAYS 11/11/18 05:49 Blood Gram Stain - Final TEST NOT PERFORMED 11/11/18 05:48 Blood Blood Culture - Final NO GROWTH AFTER 5 DAYS 11/11/18 05:48 Blood Gram Stain - Final TEST NOT PERFORMED 11/13/18 05:47 Nose MRSA Culture - Final MRSA NOT DETECTED 11/08/18 14:12 Blood Blood Culture - Final NO GROWTH AFTER 5 DAYS 11/08/18 14:12 Blood Gram Stain - Final TEST NOT PERFORMED 11/09/18 10:58 Pleural Fluid Gram Stain - Preliminary 11/09/18 10:58 Pleural Fluid Body Fluid Culture - Final Streptococcus anginosus group 11/09/18 10:58 Pleural Fluid Anaerobic Culture - Final NO ANAEROBES ISOLATED. 11/08/18 14:13 Blood Blood Culture - Final Klebsiella Pneumoniae Ssp Pneu 11/08/18 14:13 Blood Gram Stain - Final 11/08/18 14:07 Urine,Catheterized Urine Culture - Final Enterococcus Faecalis 11/08/18 16:07 Naris MRSA Culture (Admit) - Final MRSA NOT DETECTED Most Recent Lab Values WBC 12.5 K/uL (4.8-10.8) H 11/20/18 07:51 RBC 2.90 Mil/uL (4.40-5.90) L 11/20/18 07:51 Hgb 7.5 g/dL (12.0-18.0) L 11/20/18 07:51 Hct 23.0 % (35.0-51.0) L 11/20/18 07:51 MCV 79.5 fL (80.0-94.0) L 11/20/18 07:51 MCH 25.8 pg (27.0-31.0) L 11/20/18 07:51 MCHC 32.5 g/dL (33.0-37.0) L 11/20/18 07:51 RDW 19.3 % (11.5-14.5) H 11/20/18 07:51 Plt Count 165 K/uL (130-400) 11/20/18 07:51 MPV 8.2 fL (7.2-11.7) 11/20/18 07:51 Neut % (Auto) 79.0 % (50.0-75.0) H 11/20/18 07:51 Lymph % (Auto) 9.4 % (20.0-40.0) L 11/20/18 07:51 [place] % (Auto) 8.1 % (0.0-10.0) 11/20/18 07:51 Eos % (Auto) 2.6 % (0.0-4.0) 11/20/18 07:51 Baso % (Auto) 0.9 % (0.0-2.0) 11/20/18 07:51 Neut # (Auto) 9.9 K/uL (1.8-7.0) H 11/20/18 07:51 Lymph # (Auto) 1.2 K/uL (1.0-4.3) 11/20/18 07:51 [place] # (Auto) 1.0 K/uL (0.0-0.8) H 11/20/18 07:51 Eos # (Auto) 0.3 K/uL (0.0-0.7) 11/20/18 07:51 Baso # (Auto) 0.1 K/uL (0.0-0.2) 11/20/18 07:51 Neutrophils % (Manual) 77 % (50-75) H 11/20/18 07:51 Band Neutrophils % 5 % (0-2) H 11/20/18 07:51 Lymphocytes % (Manual) 9 % (20-40) L 11/20/18 07:51 Monocytes % (Manual) 7 % (0-10) 11/20/18 07:51 Eosinophils % (Manual) 2 % (0-4) 11/20/18 07:51 Toxic Granulation Present 11/18/18 08:43 Platelet Estimate Normal (NORMAL) 11/20/18 07:51 Large Platelets Present 11/18/18 08:43 Polychromasia Slight 11/18/18 08:43 Hypochromasia (manual) Slight 11/20/18 07:51 Poikilocytosis (manual Slight 11/20/18 07:51 Anisocytosis (manual) Slight 11/20/18 07:51 Microcytosis (manual) Slight 11/17/18 06:53 Target Cells Slight 11/20/18 07:51 Tear Drop Cells Slight 11/14/18 07:50 Ovalocytes Slight 11/19/18 07:13 Smear Path Review 11/08/18 13:39 Retic Count 2.2 % (0.5-1.5) H 11/08/18 18:21 PT 15.2 SECONDS (9.7-12.2) H 11/12/18 06:13 INR 1.4 11/12/18 06:13 APTT 29 SECONDS (21-34) 11/12/18 06:13 pO2 73 mm/Hg (30-55) H 11/08/18 14:55 VBG pH 7.34 (7.32-7.43) 11/08/18 14:55 VBG pCO2 23 mmHg (40-60) L 11/08/18 14:55 VBG HCO3 15.9 mmol/L 11/08/18 14:55 VBG Total CO2 13.1 mmol/L (22-28) L 11/08/18 14:55 VBG O2 Sat (Calc) 94.4 % (40-65) H 11/08/18 14:55 VBG Base Excess -11.4 mmol/L (0.0-2.0) L 11/08/18 14:55 VBG Potassium 2.0 mmol/L (3.6-5.2) L* 11/08/18 14:55 Sodium 135.0 mmol/l (132-148) 11/08/18 14:55 Chloride 104.0 mmol/L (98-107) 11/08/18 14:55 Glucose 244 mg/dl (75-110) H 11/08/18 14:55 Lactate 1.7 mmol/L (0.7-2.1) 11/08/18 14:55 Crit Value Called To Dr. kumar 11/08/18 14:55 Crit Value Called By Afsaneh perez rcp 11/08/18 14:55 Crit Value Read Back Y 11/08/18 14:55 Blood Gas Notified Time 1505 11/08/18 14:55 Sodium 134 mmol/L (132-148) 11/20/18 07:51 Potassium 4.0 mmol/L (3.6-5.2) 11/20/18 07:51 Chloride 99 mmol/L (98-107) 11/20/18 07:51 Carbon Dioxide 35 mmol/L (22-30) H 11/20/18 07:51 Anion Gap 5 (10-20) L 11/20/18 07:51 BUN 7 mg/dL (9-20) L 11/20/18 07:51 Creatinine 0.6 mg/dL (0.8-1.5) L 11/20/18 07:51 Est GFR ( Amer) > 60 11/20/18 07:51 Est GFR (Non-Af Amer) > 60 11/20/18 07:51 POC Glucose (mg/dL) 185 mg/dL (65-110) H 11/20/18 06:47 Random Glucose 182 mg/dL (75-110) H D 11/20/18 07:51 Hemoglobin A1c 8.1 % (4.2-6.5) H D 11/09/18 06:02 Lactic Acid 1.2 mmol/L (0.7-2.1) 11/11/18 05:47 Calcium 10.4 mg/dl (8.6-10.4) 11/20/18 07:51 Phosphorus 3.5 mg/dL (2.5-4.5) 11/20/18 07:51 Magnesium 2.3 mg/dL (1.6-2.3) 11/20/18 07:51 Iron < 10 ug/dL (49-181) L 11/08/18 16:07 TIBC 148 ug/dL (250-450) L 11/08/18 16:07 % Saturation (20-55) 11/08/18 16:07 Transferrin < 80.00 mg/dL (206-381) L 11/08/18 16:07 Ferritin 39.5 ng/mL 11/08/18 16:07 Total Bilirubin 0.5 mg/dL (0.2-1.3) 11/20/18 07:51 AST 12 U/L (17-59) L 11/20/18 07:51 ALT 14 U/L (21-72) L D 11/20/18 07:51 Alkaline Phosphatase 87 U/L (38-126) 11/20/18 07:51 Ammonia 29 umol/L (9-33) 11/08/18 16:07 Troponin I < 0.0120 ng/mL (0.00-0.120) 11/08/18 13:39 NT-Pro-B Natriuret Pep 421 pg/mL (0-900) 11/08/18 13:39 Total Protein 5.7 g/dL (6.3-8.3) L 11/20/18 07:51 Albumin 2.3 g/dL (3.5-5.0) L 11/20/18 07:51 Globulin 3.4 gm/dL (2.2-3.9) 11/20/18 07:51 Albumin/Globulin Ratio 0.7 (1.0-2.1) L 11/20/18 07:51 Triglycerides 76 mg/dL (0-149) 11/09/18 05:45 Cholesterol < 50 mg/dL (0-199) 11/09/18 05:45 LDL Cholesterol Direct 36 mg/dL (0-129) 11/09/18 05:45 HDL Cholesterol 16 mg/dL (30-70) L 11/09/18 05:45 Vitamin B12 967 pg/mL (239-931) H 11/08/18 16:07 Folate 10.5 ng/mL 11/08/18 16:07 Procalcitonin 0.14 NG/ML (0.19-0.49) L 11/17/18 06:53 Venous Blood Potassium 2.0 mmol/L (3.6-5.2) L* 11/08/18 14:55 Urine Color Yellow (YELLOW) 11/08/18 14:07 Urine Clarity Hazy (Clear) 11/08/18 14:07 Urine pH 5.0 (5.0-8.0) 11/08/18 14:07 Ur Specific [place] 1.022 (1.003-1.030) 11/08/18 14:07 Urine Protein 1+ mg/dL (NEGATIVE) H 11/08/18 14:07 Urine Glucose (UA) 3+ mg/dL (Normal) H 11/08/18 14:07 Urine Ketones 2+ mg/dL (NEGATIVE) H 11/08/18 14:07 Urine Blood Negative (NEGATIVE) 11/08/18 14:07 Urine Nitrate Negative (NEGATIVE) 11/08/18 14:07 Urine Bilirubin Negative (NEGATIVE) 11/08/18 14:07 Urine Urobilinogen Normal mg/dL (0.2-1.0) 11/08/18 14:07 Ur Leukocyte Esterase Neg Fausto/uL (Negative) 11/08/18 14:07 Urine WBC (Auto) 8 /hpf (0-5) H 11/08/18 14:07 Urine RBC (Auto) 2 /hpf (0-3) 11/08/18 14:07 Ur Squamous Epith Cells < 1 /hpf (0-5) 11/08/18 14:07 Urine Bacteria Rare (<OCC) 11/08/18 14:07 Hyaline Casts >20 /lpf (0-2) H 11/08/18 14:07 Fluid Albumin 0.3 g/dL 11/09/18 10:58 Pleural Total Protein <3.0 g/dL 11/09/18 10:58 Pleural LDH 1113 U/L 11/09/18 10:58 Pleural Glucose <10 mg/dL L 11/09/18 10:58 Stool Occult Blood Negative (NEGATIVE) 11/08/18 13:39 Vancomycin Trough < 5.0 ug/mL (5.0-10.0) L 11/14/18 07:50 Alcohol, Quantitative < 10 mg/dl (0-10) 11/08/18 16:07 B-Hydroxybutyrate 4.94 mM (0.02-0.27) H 11/08/18 16:07 Hepatitis A IgM Ab Negative (NEGATIVE) 11/08/18 16:07 Hep Bs Antigen Negative (NEGATIVE) 11/08/18 16:07 Hep B Core IgM Ab Negative (NEGATIVE) 11/08/18 16:07 Hepatitis C Antibody Negative (NEGATIVE) 11/08/18 16:07 Blood Type AB POSITIVE 11/12/18 06:17 Blood Type Confirm AB POSITIVE 11/08/18 13:39 Antibody Screen Negative 11/12/18 06:17 Discharge Exam - Head Exam Head Exam: ATRAUMATIC Discharge Plan - Follow Up Plan Condition: CRITICAL Disposition: HOME/ ROUTINE Instructions: Hypothermia, Sepsis, Adult (DC), Upper GI Endoscopy (DC), Percutaneous Endoscopic Gastrostomy (DC), Normocytic Normochromic Anemia (DC), Hypokalemia (DC)
--- NOTE | 2018-11-20 13:54 | CP.PCM.PN ---
Subjective - Date & Time of Evaluation Date of Evaluation: 11/20/18 Time of Evaluation: 12:00 - Subjective Subjective: No complaints. Objective - Vital Signs/Intake and Output Vital Signs (last 24 hours): Temp Pulse Resp BP Pulse Ox 98.7 F 73 20 140/80 100 11/20/18 07:30 11/20/18 07:30 11/20/18 07:30 11/20/18 07:30 11/20/18 07:30 Intake and Output: 11/20/18 11/20/18 06:59 18:59 Output Total 450 Balance -450 - Medications Medications: Current Medications Acetaminophen (Tylenol 325mg Tab) 650 mg PO Q6 PRN PRN Reason: Fever >100.4 F Albuterol/Ipratropium (Duoneb 3 Mg/0.5 Mg (3 Ml) Ud) 3 ml INH RQ6 EDER Last Admin: 11/20/18 09:05 Dose: 3 ml Dextrose (Dextrose 50% Inj) 0 ml IV STAT PRN; Protocol PRN Reason: Hypoglycemia Protocol Dextrose (Glutose 15) 0 gm PO ONCE PRN; Protocol PRN Reason: Hypoglycemia Protocol Enoxaparin Sodium (Lovenox) 40 mg SC DAILY [facility] Last Admin: 11/20/18 10:18 Dose: 40 mg Fluconazole (Diflucan) 100 mg PO DAILY [facility]; Protocol Last Admin: 11/20/18 10:19 Dose: 100 mg Folic Acid (Folic Acid) 1 mg PO DAILY [facility] Last Admin: 11/20/18 10:18 Dose: 1 mg Glucagon (Glucagen Diagnostic Kit) 0 mg IM STAT PRN; Protocol PRN Reason: Hypoglycemia Protocol Piperacillin Sod/Tazobactam (Sod 3.375 gm/ Sodium Chloride) 100 mls @ 200 mls/hr IVPB Q6H EDER; Protocol Last Admin: 11/20/18 08:30 Dose: 200 mls/hr Insulin Human Regular (Novolin R) 0 unit SC ACHS EDER; Protocol Last Admin: 11/20/18 11:48 Dose: 3 units Lactobacillus Acidophilus (Lactobacillus) 1 cap PO Q12H [facility] Last Admin: 11/20/18 10:18 Dose: 1 cap Mirtazapine (Remeron) 15 mg PO HS [facility] Last Admin: 11/19/18 22:38 Dose: 15 mg Multivitamins (Hexavitamin) 1 tab PO DAILY [facility] Last Admin: 11/20/18 10:18 Dose: 1 tab Nicotine (Nicoderm Cq) 1 patch TD DAILY [facility] Last Admin: 11/20/18 10:18 Dose: 1 patch Pantoprazole Sodium (Protonix Ec Tab) 40 mg PO DAILY [facility] Last Admin: 11/20/18 10:18 Dose: 40 mg Sertraline HCl (Zoloft) 25 mg PO DAILY [facility] Last Admin: 11/20/18 10:18 Dose: 25 mg Sodium Chloride ([place] Baby Saline 30 Ml) 1 ml RODNEY BID [facility] Last Admin: 11/20/18 10:19 Dose: 1 spr Thiamine HCl (Vitamin B1 Tab) 100 mg PO DAILY [facility] Last Admin: 11/20/18 10:18 Dose: 100 mg - Labs Labs: 11/20/18 07:51 11/20/18 07:51 PT 15.2 SECONDS (9.7-12.2) H 11/12/18 06:13 INR 1.4 11/12/18 06:13 APTT 29 SECONDS (21-34) 11/12/18 06:13 - Head Exam Head Exam: ATRAUMATIC - Eye Exam Eye Exam: Normal appearance - ENT Exam ENT Exam: Mucous Membranes Dry - Respiratory Exam Respiratory Exam: NORMAL BREATHING PATTERN - Cardiovascular Exam Cardiovascular Exam: +S1, +S2 - GI/Abdominal Exam GI & Abdominal Exam: Normal Bowel Sounds Assessment and Plan (1) Anemia Assessment & Plan: iron deficiency anemia and chronic disease iron supplementation when infection cleared Status: Acute (2) Esophageal mass Assessment & Plan: squamous cell carcinoma outpatient PET CT for staging if no distant mets; would benefit from chemo+radiation and evaluation for surgical candidacy s/p feeding tube Status: Acute
--- NOTE | 2018-11-20 14:57 | CP.PCM.PN ---
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 denies CP SOB FC [place], agrees with plan for d/c to [facility] once approved Objective - Vital Signs/Intake and Output Vital Signs (last 24 hours): Temp Pulse Resp BP Pulse Ox 98.7 F 73 20 140/80 100 11/20/18 07:30 11/20/18 07:30 11/20/18 07:30 11/20/18 07:30 11/20/18 07:30 Intake and Output: 11/20/18 11/20/18 06:59 18:59 Output Total 450 Balance -450 - Medications Medications: Current Medications Acetaminophen (Tylenol 325mg Tab) 650 mg PO Q6 PRN PRN Reason: Fever >100.4 F Albuterol/Ipratropium (Duoneb 3 Mg/0.5 Mg (3 Ml) Ud) 3 ml INH RQ6 EDER Last Admin: 11/20/18 09:05 Dose: 3 ml Dextrose (Dextrose 50% Inj) 0 ml IV STAT PRN; Protocol PRN Reason: Hypoglycemia Protocol Dextrose (Glutose 15) 0 gm PO ONCE PRN; Protocol PRN Reason: Hypoglycemia Protocol Enoxaparin Sodium (Lovenox) 40 mg SC DAILY [facility] Last Admin: 11/20/18 10:18 Dose: 40 mg Fluconazole (Diflucan) 100 mg PO DAILY [facility]; Protocol Last Admin: 11/20/18 10:19 Dose: 100 mg Folic Acid (Folic Acid) 1 mg PO DAILY [facility] Last Admin: 11/20/18 10:18 Dose: 1 mg Glucagon (Glucagen Diagnostic Kit) 0 mg IM STAT PRN; Protocol PRN Reason: Hypoglycemia Protocol Piperacillin Sod/Tazobactam (Sod 3.375 gm/ Sodium Chloride) 100 mls @ 200 mls/hr IVPB Q6H EDER; Protocol Last Admin: 11/20/18 14:11 Dose: 200 mls/hr Insulin Human Regular (Novolin R) 0 unit SC ACHS EDER; Protocol Last Admin: 11/20/18 11:48 Dose: 3 units Lactobacillus Acidophilus (Lactobacillus) 1 cap PO Q12H [facility] Last Admin: 11/20/18 10:18 Dose: 1 cap Mirtazapine (Remeron) 15 mg PO HS [facility] Last Admin: 11/19/18 22:38 Dose: 15 mg Multivitamins (Hexavitamin) 1 tab PO DAILY [facility] Last Admin: 11/20/18 10:18 Dose: 1 tab Nicotine (Nicoderm Cq) 1 patch TD DAILY [facility] Last Admin: 11/20/18 10:18 Dose: 1 patch Pantoprazole Sodium (Protonix Ec Tab) 40 mg PO DAILY [facility] Last Admin: 11/20/18 10:18 Dose: 40 mg Sertraline HCl (Zoloft) 25 mg PO DAILY [facility] Last Admin: 11/20/18 10:18 Dose: 25 mg Sodium Chloride ([place] Baby Saline 30 Ml) 1 ml RODNEY BID [facility] Last Admin: 11/20/18 10:19 Dose: 1 spr Thiamine HCl (Vitamin B1 Tab) 100 mg PO DAILY [facility] Last Admin: 11/20/18 10:18 Dose: 100 mg - Labs Labs: 11/20/18 07:51 11/20/18 07:51 PT 15.2 SECONDS (9.7-12.2) H 11/12/18 06:13 INR 1.4 11/12/18 06:13 APTT 29 SECONDS (21-34) 11/12/18 06:13 - Additional Findings Additional findings: - Constitutional Appears: No Acute Distress, Chronically Ill - Head Exam Head Exam: ATRAUMATIC, NORMOCEPHALIC - Eye Exam Eye Exam: EOMI, Normal appearance, PERRL - ENT Exam ENT Exam: Mucous Membranes Moist - Neck Exam Neck Exam: Full ROM, Normal Inspection - Respiratory Exam Respiratory Exam: Decreased Breath Sounds (diffusely) - Cardiovascular Exam Cardiovascular Exam: REGULAR RHYTHM, +S1, +S2 - GI/Abdominal Exam GI & Abdominal Exam: Soft. absent: Distended, Firm, Guarding, Rigid, Tenderness Additional comments: PEG tube in place, area clean and dry without signs of infection - Extremities Exam Extremities Exam: Calf Tenderness, Full ROM. absent: Pedal Edema, Tenderness, - Back Exam Additional comments: Picc line LUE - Neurological Exam Neurological Exam: Alert, Awake, Oriented x3 Upper Extremities 4/5 strength bilaterally Lower Extremities 3/5 strength bilaterally - Psychiatric Exam Psychiatric exam: Normal Affect - Skin Skin Exam: Dry, Intact, Pallor, Warm Assessment and Plan - Assessment and Plan (Free Text) Assessment: Plan: Sepsis Urinary tract infection Bacteremia Empyema * Code sepsis 11/08/18 * Infectious Disease (Dr. Bojorquez) on board-->help appreciated * Criteria: leukocytosis, hypotension, bandemia, hypothermia, source of infections: empyema, uti, bacteremia * Lactic acid: 3.5-->1.7 * elevated procalcitonin: 1.49-->0.83 on 11/11/18 * Blood culture (11/08/18): Klebsiella pneumoniae * Sensitive to Zosyn with LUPE of less than 4 * Repeat Blood culture (11/11/18): finalized as negative at 5 days * Urine culture (11/08/18): Enterococcus Faecalis * Repeat Urine Culture (11/15/18): NO growth * MRSA (11/08/18): not detected * Pleural fluid (11/09/18): no acid fast bacilli * Pleural fluid (11/09/18): Streptococcus anginosus which is sensitive to Vancomycin which the patient was restarted on 11/11/18 * Chest xray (11/08/18): layering left pleural effusion and/or consolidation * Chest xray (11/09/18): slight increase in left perihilar/basilar opacity. small left pleural effusion, grossly unchanged * Iv abx: * Zosyn 3.375 g IV Q6H (active since 11/08/18) * Vancomycin 1 gram IV Q12 (11/08/18 through 11/11/18): spoke with ID Dr. Bojorquez 11/12/18: Zosyn will cover the Klebsiella, Streptococcus and the Enterococcus * CT Chest 11/12/18: moderate left sided hydropneumothorax, moderate right pleural effusion, bilateral lower lobe consolidations, mediastinal lymphadenopathy, moderate hiatal hernia with gastric wall thickening Empyema; Loculated Left Pleural effusion * Thoracic Surgery (Dr. Bro) on board-->help appreciated * VATS procedure cancelled on 11/12/18 * Repeat CT Chest ordered 11/12/18 * Chest xray (11.08.18): layering left pleural effusion and/or consolidation * Chest xray (11/09/18): slight increase in left perihilar/basilar opacity. small left pleural effusion, grossly unchanged * S/P IR thoracentesis 11/09/18; placement of pigtail catheter * Pleural fluid (11/09/18): Streptococcus anginosus which is sensitive to Vancomycin which the patient was restarted on 11/11/18 * Pleural fluid (11/09/18): moderate PMNs, moderate gram positive cocci * Echocardiogram (08/20/18): left ventricular function is normal, left ventricular ejection fraction is within the the normal range about 55%, mild mitral valve regurgitation noted Anemia * Thoracic Surgery (Dr. Bro) on board-->help appreciated * GI (Dr. Aaron) on board-->help appreciated * Likely secondary to the suspicious mass found on EGD performed on 11/12/18? * On admission: hgb 10-->5 * blood transfusion consent obtained by resident 11/08/18 * given 3 units of PRBC overnight night and 1 FFP unit * rectal negative * ferritin low * iron low: will not repleat at this time considering multiple infections as documented in Assessment/Plan #1 * tibc: 148 low * transferrin low * Hgb 7.9 on 11/19/18 * Reticulocyte count: 2.2--> reticulocyte index: 0.12-->hypoproliferation <2 * Folate low * B12: 967 (low) * Occult blood: negative * CT Chest/Abdomen/pelvis (11/08/18): ascites, anasarca, interval loculated left pleural effusion, appearance of GE junction is indeterminate here a hiatal hernia vs mass Cirrhosis * GI (Dr. Aaron) on board-->help appreciated * CT Chest/Abdomen/pelvis IV contrast (11/08/18): prior amount of ascites and anasarca has improved. further findings per report * Abdominal US (08/18/18): limited study. echogenic liver may be seen in hepatic parenchymal disease or fatty infiltrate. nodular hepatic contour. tita lithiasis. gallbladder wall thickening/pericholecystic edema. negative sonographic Cespedes's small abdominal ascites * Hepatitis Panel negative * Blood alcohol <10 * Patient notes he has drinking 3 shots of vodka X 30 years. Diabetes mellitus 2 * Hgba1c: 8.1 * Patient is off metformin given elevated lactic on admission * RISS ACHS * Accuchecks QAC and HS GE junction Mass * Thoracic Surgery (Dr. Bro) on board-->help appreciated * GI (Dr. Aaron) on board-->help appreciated * CT Chest/Abdomen/pelvis (11/08/18): ascites, anasarca, interval loculated left pleural effusion, appearance of GE junction is indeterminate here a hiatal hernia vs mass * Patient is S/P Upper EGD on 11/12/18 and pathology from biopsy has confirmed Poorly Differentiated Squamous Cell CA * Heme/Oncologist Dr. Melody Paredes recommendation: outpatient PET Scan for staging and if NO mets then Chemo+Radiation and Surgical evaluation * Palliative Care Nurse Rosas is on board Alcohol use * Ciwa protocol * Aspiration precautions * Seizure precautions * Folic acid 1mg PO Daily * MVI tab PO daily * Thiamine 100mg PO daily * 3 shots of vodka X 30 years history * Monitor for withdrawal; patient is not currently in withdrawal * Abdominal US (08/18/18): limited study. Echogenic liver may be seen in hepatic parenchymal disease or fatty infiltrate. Nodular hepatic contour. cholelithiasis. Gallbladder wall thickening/pericholecystic edema. Negative sonographic Cespedes's small abdominal ascites Tobacco use * 1 ppd X30 years * Nicotine patch daily * Advised smoking cessation Cachexia * Related to alcohol, smoking, malnutrition, AND likely related to suspicious GE mass? Status: Acute Ulcer of sacral region, stage 1 * Wound Care Nurse Joseph Amaya is on board: [place] and continue to turn patient every 2 hours * Exam on 11/16/18 continues to reveal nonblanchable erythema to the upper buttocks and lower sacrum with NO skin breakdown noted Prophylactic measure * PT/OT eval * Protonix 40mg IV q12H * Full code * Lovenox 40mg subq daily for DVT ppx * Bilateral LE Venous Doppler 11/12/18: NO DVTs Disposition: As per ID, continue IV abx for total 14 days minimum Patient DNI/DNR F/u Dietary for adjustment of PEG tube feedings due to diarrhea *Plan for Subacute Rehab ([facility]) however insurance is covered in [place]- f/u approval for [facility]
[2018-11-21] MEDS: Albuterol-Ipratrop 3 mg / 0.5 (3 ml) UD INH SCH (01:24)
[2018-11-21] MEDS: Piperacillin/Tazobact 3.375 GM in Sodium Chloride 100 ML IVPB SCH ×3 (02:41→21:11)
[2018-11-21 07:10] LABS: BASO # 0.1 K/uL (0.0-0.2); BASO % 0.9 % (0.0-2.0); EOS # 0.4 K/uL (0.0-0.7); EOS % 3.6 % (0.0-4.0); HEMOGLOBIN 7.2 g/dL (12.0-18.0); LYMPH % 8.5 % (20.0-40.0); MEAN CELL VOLUME 79.5 fL (80.0-94.0); MEAN CORPUSCULAR HEMOGLOBIN 25.3 pg (27.0-31.0); MEAN CORPUSCULAR HGB CONC 31.8 g/dL (33.0-37.0); MEAN PLATELET VOLUME 8.4 fL (7.2-11.7); MONO # 0.9 K/uL (0.0-0.8); MONO % 7.8 % (0.0-10.0); NEUT # 9.6 K/uL (1.8-7.0); NEUT % 79.2 % (50.0-75.0); PLATELET COUNT 162 K/uL (130-400); RBC 2.83 Mil/uL (4.40-5.90); RED CELL DISTRIBUTION WIDTH 19.4 % (11.5-14.5); WHITE BLOOD COUNT 12.1 K/uL (4.8-10.8)
--- NOTE | 2018-11-21 07:20 | CP.PCM.PN ---
Subjective - Date & Time of Evaluation Date of Evaluation: 11/21/18 Time of Evaluation: : - Subjective Subjective: Progress note for Dr. Osorio. Patient seen and evaluated at bedside. Patient states he continues with loose bowel movements, however has improved since yesterday. Refuses to get OOB due to loose BMs. Also states he is tired. Otherwise denies chest pain, shortness of breath, lightheadedness, dizziness, nausea, vomiting, abdominal pain, fever and chills. Objective - Vital Signs/Intake and Output Vital Signs (last 24 hours): Temp Pulse Resp BP Pulse Ox 97.8 F 78 20 119/69 98 11/21/18 00:00 11/21/18 01:00 11/21/18 00:00 11/21/18 00:00 11/21/18 00:00 - Medications Medications: Current Medications Acetaminophen (Tylenol 325mg Tab) 650 mg PO Q6 PRN PRN Reason: Fever >100.4 F Dextrose (Dextrose 50% Inj) 0 ml IV STAT PRN; Protocol PRN Reason: Hypoglycemia Protocol Dextrose (Glutose 15) 0 gm PO ONCE PRN; Protocol PRN Reason: Hypoglycemia Protocol Enoxaparin Sodium (Lovenox) 40 mg SC DAILY [facility] Last Admin: 11/20/18 10:18 Dose: 40 mg Fluconazole (Diflucan) 100 mg PO DAILY [facility]; Protocol Last Admin: 11/20/18 10:19 Dose: 100 mg Folic Acid (Folic Acid) 1 mg PO DAILY [facility] Last Admin: 11/20/18 10:18 Dose: 1 mg Glucagon (Glucagen Diagnostic Kit) 0 mg IM STAT PRN; Protocol PRN Reason: Hypoglycemia Protocol Piperacillin Sod/Tazobactam (Sod 3.375 gm/ Sodium Chloride) 100 mls @ 200 mls/ hr IVPB Q6H [facility]; Protocol Last Admin: 11/21/18 02:41 Dose: 200 mls/hr Insulin Human Regular (Novolin R) 0 unit SC ACHS [facility]; Protocol Last Admin: 11/20/18 21:53 Dose: 2 units Lactobacillus Acidophilus (Lactobacillus) 1 cap PO Q12H [facility] Last Admin: 11/20/18 21:52 Dose: 1 cap Mirtazapine (Remeron) 15 mg PO HS [facility] Last Admin: 11/20/18 21:52 Dose: 15 mg Multivitamins (Hexavitamin) 1 tab PO DAILY [facility] Last Admin: 11/20/18 10:18 Dose: 1 tab Nicotine (Nicoderm Cq) 1 patch TD DAILY [facility] Last Admin: 11/20/18 10:18 Dose: 1 patch Pantoprazole Sodium (Protonix Ec Tab) 40 mg PO DAILY [facility] Last Admin: 11/20/18 10:18 Dose: 40 mg Sertraline HCl (Zoloft) 25 mg PO DAILY [facility] Last Admin: 11/20/18 10:18 Dose: 25 mg Sodium Chloride ([place] Baby Saline 30 Ml) 1 ml RODNEY BID [facility] Last Admin: 11/20/18 10:19 Dose: 1 spr Thiamine HCl (Vitamin B1 Tab) 100 mg PO DAILY [facility] Last Admin: 11/20/18 10:18 Dose: 100 mg - Labs Labs: 11/21/18 06:49 11/20/18 07:51 PT 15.2 SECONDS (9.7-12.2) H 11/12/18 06:13 INR 1.4 11/12/18 06:13 APTT 29 SECONDS (21-34) 11/12/18 06:13 - Additional Findings Additional findings: - Constitutional Appears: No Acute Distress, cachectic - Head Exam Head Exam: ATRAUMATIC, NORMOCEPHALIC - Eye Exam Eye Exam: EOMI, Normal appearance, PERRL - ENT Exam ENT Exam: Mucous Membranes Moist - Neck Exam Neck Exam: Full ROM, Normal Inspection - Respiratory Exam Respiratory Exam: Decreased Breath Sounds (diffusely) - Cardiovascular Exam Cardiovascular Exam: REGULAR RHYTHM, +S1, +S2 - GI/Abdominal Exam GI & Abdominal Exam: Soft. absent: Distended, Firm, Guarding, Rigid, Tenderness Additional comments: PEG tube in place, area clean and dry without signs of infection - Extremities Exam Extremities Exam: Calf Tenderness, Full ROM. absent: Pedal Edema, Tenderness - Back Exam Additional comments: Picc line LUE - Neurological Exam Neurological Exam: Alert, Awake, Oriented x3 - Psychiatric Exam Psychiatric exam: Normal Affect - Skin Skin Exam: Dry, Intact, Pallor, Warm Assessment and Plan - Assessment and Plan (Free Text) Plan: Sepsis Urinary tract infection Bacteremia Empyema * Code sepsis 11/08/18 * Infectious Disease (Dr. Bojorquez) on board-->help appreciated * Criteria: leukocytosis, hypotension, bandemia, hypothermia, source of infections: empyema, uti, bacteremia * Lactic acid: 3.5-->1.7 * elevated procalcitonin: 1.49-->0.83 on 11/11/18 * Blood culture (11/08/18): Klebsiella pneumoniae * Sensitive to Zosyn with LUPE of less than 4 * Repeat Blood culture (11/11/18): finalized as negative at 5 days * Urine culture (11/08/18): Enterococcus Faecalis * Repeat Urine Culture (11/15/18): NO growth * MRSA (11/08/18): not detected * Pleural fluid (11/09/18): no acid fast bacilli * Pleural fluid (11/09/18): Streptococcus anginosus which is sensitive to Vancomycin which the patient was restarted on 11/11/18 * Chest xray (11/08/18): layering left pleural effusion and/or consolidation * Chest xray (11/09/18): slight increase in left perihilar/basilar opacity. small left pleural effusion, grossly unchanged * Iv abx: * Zosyn 3.375 g IV Q6H (active since 11/08/18) * Vancomycin 1 gram IV Q12 (11/08/18 through 11/11/18): spoke with ID Dr. Bojorquez 11/12/18: Zosyn will cover the Klebsiella, Streptococcus and the Enterococcus * CT Chest 11/12/18: moderate left sided hydropneumothorax, moderate right pleural effusion, bilateral lower lobe consolidations, mediastinal lymphadenopathy, moderate hiatal hernia with gastric wall thickening Empyema; Loculated Left Pleural effusion * Thoracic Surgery (Dr. Bro) on board-->help appreciated * VATS procedure cancelled on 11/12/18 * Repeat CT Chest ordered 11/12/18 * Chest xray (11.08.18): layering left pleural effusion and/or consolidation * Chest xray (11/09/18): slight increase in left perihilar/basilar opacity. small left pleural effusion, grossly unchanged * S/P IR thoracentesis 11/09/18; placement of pigtail catheter * Pleural fluid (11/09/18): Streptococcus anginosus which is sensitive to Vancomycin which the patient was restarted on 11/11/18 * Pleural fluid (11/09/18): moderate PMNs, moderate gram positive cocci * Echocardiogram (08/20/18): left ventricular function is normal, left ventricular ejection fraction is within the the normal range about 55%, mild mitral valve regurgitation noted Anemia * Thoracic Surgery (Dr. Bro) on board-->help appreciated * GI (Dr. Aaron) on board-->help appreciated * Likely secondary to the suspicious mass found on EGD performed on 11/12/18? * On admission: hgb 10-->5 * blood transfusion consent obtained by resident 11/08/18 * given 3 units of PRBC overnight night and 1 FFP unit * rectal negative * ferritin low * iron low: will not repleat at this time considering multiple infections as documented in Assessment/Plan #1 * tibc: 148 low * transferrin low * Hgb 7.9 on 11/19/18 * Reticulocyte count: 2.2--> reticulocyte index: 0.12-->hypoproliferation <2 * Folate low * B12: 967 (low) * Occult blood: negative * CT Chest/Abdomen/pelvis (11/08/18): ascites, anasarca, interval loculated left pleural effusion, appearance of GE junction is indeterminate here a hiatal hernia vs mass Cirrhosis * GI (Dr. Aaron) on board-->help appreciated * CT Chest/Abdomen/pelvis IV contrast (11/08/18): prior amount of ascites and anasarca has improved. further findings per report * Abdominal US (08/18/18): limited study. echogenic liver may be seen in hepatic parenchymal disease or fatty infiltrate. nodular hepatic contour. cholelithia sis. gallbladder wall thickening/pericholecystic edema. negative sonographic Cespedes's small abdominal ascites * Hepatitis Panel negative * Blood alcohol <10 * Patient notes he has drinking 3 shots of vodka X 30 years. Diabetes mellitus 2 * Hgba1c: 8.1 * Patient is off metformin given elevated lactic on admission * RISS ACHS * Accuchecks QAC and HS GE junction Mass * Thoracic Surgery (Dr. Bro) on board-->help appreciated * GI (Dr. Aaron) on board-->help appreciated * CT Chest/Abdomen/pelvis (11/08/18): ascites, anasarca, interval loculated left pleural effusion, appearance of GE junction is indeterminate here a hiatal hernia vs mass * Patient is S/P Upper EGD on 11/12/18 and pathology from biopsy has confirmed Poorly Differentiated Squamous Cell CA * Heme/Oncologist Dr. Melody Paredes recommendation: outpatient PET Scan for staging and if NO mets then Chemo+Radiation and Surgical evaluation * Palliative Care Nurse Rosas is on board Alcohol use * Ciwa protocol * Aspiration precautions * Seizure precautions * Folic acid 1mg PO Daily * MVI tab PO daily * Thiamine 100mg PO daily * 3 shots of vodka X 30 years history * Monitor for withdrawal; patient is not currently in withdrawal * Abdominal US (08/18/18): limited study. Echogenic liver may be seen in hepatic parenchymal disease or fatty infiltrate. Nodular hepatic contour. cholelithiasis. Gallbladder wall thickening/pericholecystic edema. Negative sonographic Cespedes's small abdominal ascites Tobacco use * 1 ppd X30 years * Nicotine patch daily * Advised smoking cessation Cachexia * Related to alcohol, smoking, malnutrition, AND likely related to suspicious GE mass Status: Acute Ulcer of sacral region, stage 1 * Wound Care Nurse Joseph Amaya is on board: [place] and continue to turn patient every 2 hours * Exam on 11/16/18 continues to reveal nonblanchable erythema to the upper butto cks and lower sacrum with NO skin breakdown noted Prophylactic measure * PT/OT eval * Protonix 40mg IV q12H * DNI/DNR * Lovenox 40mg subq daily for DVT ppx * Bilateral LE Venous Doppler 11/12/18: NO DVTs Disposition: As per ID, continue IV abx for total 14 days minimum (12/02/18) GLUCERNA changed to JEVITY 1.5 as recommended by validation scientist which contains fiber and may thicken stool Encourage patient OOB to chair *Plan for Subacute Rehab ([facility]) however insurance is covered in [place]- f/u approval for [facility]
[2018-11-21 07:47] LABS: ALB/GLOB RATIO 0.7 (1.0-2.1); ALBUMIN 2.3 g/dL (3.5-5.0); ALT/SGPT 15 U/L (21-72); AST/SGOT 14 U/L (17-59); BLOOD UREA NITROGEN 9 mg/dL (9-20); CALCIUM 10.5 mg/dl (8.6-10.4); GFR NON-AFRICAN AMERICAN > 60
[2018-11-21 08:25] LABS: BANDS 4 % (0-2); LYMPHOCYTE 7 % (20-40); MONOCYTE 4 % (0-10); PLATELET ESTIMATE NORMAL (NORMAL); TOTAL CELLS COUNTED 100
[2018-11-21 08:26] LABS: ANISOCYTOSIS SLIGHT; EOSINOPHIL 4 % (0-4); HYPOCHROMIC SLIGHT; NEUTROPHIL 81 % (50-75); POIKILOCYTOSIS SLIGHT; TEARDROP CELLS SLIGHT
[2018-11-21 08:27] LABS: TARGET CELLS SLIGHT
[2018-11-21] MEDS: (Novolin R) Insulin Human Regular 100 units/ml vial SC SCH ×4 (08:35→21:12)
[2018-11-21] MEDS: Multiple Vitamins Tab PO SCH (10:24)
[2018-11-21] MEDS: Sodium Chloride Nasal 0.65% Soln (30ml) NAS SCH ×3 (10:24→22:13)
[2018-11-21] MEDS: Lactobacillus Acidophilus 500 MU Cap PO SCH ×2 (10:25→21:11)
[2018-11-21] MEDS: Pantoprazole 40 mg EC Tab PO SCH (10:25)
[2018-11-21] MEDS: Enoxaparin 40 mg Syringe SC SCH (10:25)
--- NOTE | 2018-11-21 22:15 | CP.PCM.PN ---
Subjective - Date & Time of Evaluation Date of Evaluation: 11/21/18 Time of Evaluation: 08:00 - Subjective Subjective: events noted + LBM possibly antibiotic related almost completed 14 days rx Objective - Vital Signs/Intake and Output Vital Signs (last 24 hours): Temp Pulse Resp BP Pulse Ox 97.8 F 76 20 111/67 99 11/21/18 16:00 11/21/18 16:00 11/21/18 16:00 11/21/18 16:00 11/21/18 16:00 - Medications Medications: Current Medications Acetaminophen (Tylenol 325mg Tab) 650 mg PO Q6 PRN PRN Reason: Fever >100.4 F Dextrose (Dextrose 50% Inj) 0 ml IV STAT PRN; Protocol PRN Reason: Hypoglycemia Protocol Dextrose (Glutose 15) 0 gm PO ONCE PRN; Protocol PRN Reason: Hypoglycemia Protocol Enoxaparin Sodium (Lovenox) 40 mg SC DAILY [facility] Last Admin: 11/21/18 10:25 Dose: 40 mg Folic Acid (Folic Acid) 1 mg PO DAILY [facility] Last Admin: 11/21/18 10:24 Dose: 1 mg Glucagon (Glucagen Diagnostic Kit) 0 mg IM STAT PRN; Protocol PRN Reason: Hypoglycemia Protocol Piperacillin Sod/Tazobactam (Sod 3.375 gm/ Sodium Chloride) 100 mls @ 200 mls/hr IVPB Q6H [facility]; Protocol Last Admin: 11/21/18 21:11 Dose: 200 mls/hr Metronidazole (Flagyl) 500 mg in 100 mls @ 100 mls/hr IVPB Q8H [facility]; Protocol Insulin Human Regular (Novolin R) 0 unit SC ACHS [facility]; Protocol Last Admin: 11/21/18 21:12 Dose: 2 units Lactobacillus Acidophilus (Lactobacillus) 1 cap PO Q12H [facility] Last Admin: 11/21/18 21:11 Dose: 1 cap Mirtazapine (Remeron) 15 mg PO HS [facility] Last Admin: 11/21/18 21:11 Dose: 15 mg Multivitamins (Hexavitamin) 1 tab PO DAILY [facility] Last Admin: 11/21/18 10:24 Dose: 1 tab Nicotine (Nicoderm Cq) 1 patch TD DAILY [facility] Last Admin: 11/21/18 10:25 Dose: 1 patch Pantoprazole Sodium (Protonix Ec Tab) 40 mg PO DAILY [facility] Last Admin: 11/21/18 10:25 Dose: 40 mg Sertraline HCl (Zoloft) 25 mg PO DAILY [facility] Last Admin: 11/21/18 10:32 Dose: 25 mg Sodium Chloride ([place] Baby Saline 30 Ml) 1 ml RODNEY BID [facility] Last Admin: 11/21/18 21:28 Dose: Not Given Thiamine HCl (Vitamin B1 Tab) 100 mg PO DAILY [facility] Last Admin: 11/21/18 10:24 Dose: 100 mg - Labs Labs: 11/21/18 06:49 11/21/18 06:49 PT 15.2 SECONDS (9.7-12.2) H 11/12/18 06:13 INR 1.4 11/12/18 06:13 APTT 29 SECONDS (21-34) 11/12/18 06:13 - Constitutional Appears: No Acute Distress, Chronically Ill - Head Exam Head Exam: ATRAUMATIC, NORMAL INSPECTION, NORMOCEPHALIC - Eye Exam Eye Exam: EOMI, Normal appearance, PERRL Pupil Exam: NORMAL ACCOMODATION, PERRL - ENT Exam ENT Exam: Mucous Membranes Moist, Normal Exam - Neck Exam Neck Exam: Full ROM, Normal Inspection. absent: Lymphadenopathy - Respiratory Exam Respiratory Exam: Clear to Ausculation Bilateral, NORMAL BREATHING PATTERN - Cardiovascular Exam Cardiovascular Exam: REGULAR RHYTHM, +S1, +S2. absent: Murmur - GI/Abdominal Exam GI & Abdominal Exam: Soft, Normal Bowel Sounds. absent: Tenderness - Rectal Exam Rectal Exam: Deferred - Extremities Exam Extremities Exam: Full ROM, Normal Capillary Refill, Normal Inspection. absent: Joint Swelling, Pedal Edema - Back Exam Back Exam: NORMAL INSPECTION - Neurological Exam Neurological Exam: Alert, Awake, CN II-XII Intact, Oriented x3. absent: Normal Gait - Psychiatric Exam Psychiatric exam: Normal Affect, Normal Mood - Skin Skin Exam: Dry, Intact, Normal Color, Warm Assessment and Plan (1) Esophageal mass Status: Acute (2) Abnormal CT scan, chest Status: Acute (3) Alcohol use Status: Acute (4) Anemia Status: Acute (5) Cachexia Status: Acute (6) Pleural effusion Status: Acute (7) Sepsis Status: Acute (8) Cirrhosis Status: Acute (9) Diabetes mellitus Status: Acute (10) Gram negative sepsis Status: Acute (11) Squamous cell cancer of cardio-esophageal junction Status: Acute - Assessment and Plan (Free Text) Assessment: cont IV rx add flagyl
[2018-11-21] MEDS: metroNIDAZOLE IV 500 mg/100 ml 500 MG/100 ML BAG IVPB SCH (22:35)
[2018-11-22] MEDS: Piperacillin/Tazobact 3.375 GM in Sodium Chloride 100 ML IVPB SCH ×5 (02:20→19:51)
[2018-11-22] MEDS: metroNIDAZOLE IV 500 mg/100 ml 500 MG/100 ML BAG IVPB SCH ×3 (06:48→21:40)
--- NOTE | 2018-11-22 07:00 | CP.PCM.PN ---
Subjective - Date & Time of Evaluation Date of Evaluation: 11/22/18 Time of Evaluation: 06:59 - Subjective Subjective: Progress report for Dr. Osorio Patient seen and examined at bedside. Continued loose stool. States he is tired as usual. He tried to sit up in his chair today for a short while, but reported too much back pain. Denies chest pain, SOB, nausea, vomiting, fever, chills, dizziness. Objective - Vital Signs/Intake and Output Vital Signs (last 24 hours): Temp Pulse Resp BP Pulse Ox 98.6 F 78 20 128/75 97 11/21/18 23:15 11/21/18 23:15 11/21/18 23:15 11/21/18 23:15 11/21/18 23:15 Intake and Output: 11/21/18 11/22/18 18:59 06:59 Intake Total 1300 Output Total 1400 Balance -100 - Medications Medications: Current Medications Acetaminophen (Tylenol 325mg Tab) 650 mg PO Q6 PRN PRN Reason: Fever >100.4 F Dextrose (Dextrose 50% Inj) 0 ml IV STAT PRN; Protocol PRN Reason: Hypoglycemia Protocol Dextrose (Glutose 15) 0 gm PO ONCE PRN; Protocol PRN Reason: Hypoglycemia Protocol Enoxaparin Sodium (Lovenox) 40 mg SC DAILY [facility] Last Admin: 11/21/18 10:25 Dose: 40 mg Folic Acid (Folic Acid) 1 mg PO DAILY [facility] Last Admin: 11/21/18 10:24 Dose: 1 mg Glucagon (Glucagen Diagnostic Kit) 0 mg IM STAT PRN; Protocol PRN Reason: Hypoglycemia Protocol Piperacillin Sod/Tazobactam (Sod 3.375 gm/ Sodium Chloride) 100 mls @ 200 mls/hr IVPB Q6H [facility]; Protocol Last Admin: 11/22/18 02:20 Dose: 200 mls/hr Metronidazole (Flagyl) 500 mg in 100 mls @ 100 mls/hr IVPB Q8H [facility]; Protocol Last Admin: 11/22/18 06:48 Dose: 100 mls/hr Insulin Human Regular (Novolin R) 0 unit SC ACHS [facility]; Protocol Last Admin: 11/21/18 21:12 Dose: 2 units Lactobacillus Acidophilus (Lactobacillus) 1 cap PO Q12H [facility] Last Admin: 11/21/18 21:11 Dose: 1 cap Mirtazapine (Remeron) 15 mg PO HS [facility] Last Admin: 11/21/18 21:11 Dose: 15 mg Multivitamins (Hexavitamin) 1 tab PO DAILY [facility] Last Admin: 11/21/18 10:24 Dose: 1 tab Nicotine (Nicoderm Cq) 1 patch TD DAILY [facility] Last Admin: 11/21/18 10:25 Dose: 1 patch Pantoprazole Sodium (Protonix Ec Tab) 40 mg PO DAILY [facility] Last Admin: 11/21/18 10:25 Dose: 40 mg Sertraline HCl (Zoloft) 25 mg PO DAILY [facility] Last Admin: 11/21/18 10:32 Dose: 25 mg Sodium Chloride ([place] Baby Saline 30 Ml) 1 ml RODNEY BID [facility] Last Admin: 11/21/18 22:13 Dose: Not Given Thiamine HCl (Vitamin B1 Tab) 100 mg PO DAILY [facility] Last Admin: 11/21/18 10:24 Dose: 100 mg - Labs Labs: 11/21/18 06:49 11/21/18 06:49 PT 15.2 SECONDS (9.7-12.2) H 11/12/18 06:13 INR 1.4 11/12/18 06:13 APTT 29 SECONDS (21-34) 11/12/18 06:13 - Additional Findings Additional findings: - Constitutional Appears: No Acute Distress, cachectic - Head Exam Head Exam: ATRAUMATIC, NORMOCEPHALIC - Eye Exam Eye Exam: EOMI, Normal appearance, PERRL - ENT Exam ENT Exam: Mucous Membranes Moist - Neck Exam Neck Exam: Full ROM, Normal Inspection - Respiratory Exam Respiratory Exam: Decreased Breath Sounds (diffusely) - Cardiovascular Exam Cardiovascular Exam: REGULAR RHYTHM, +S1, +S2 - GI/Abdominal Exam GI & Abdominal Exam: Soft. absent: Distended, Firm, Guarding, Rigid, Tenderness Additional comments: PEG tube in place, area clean and dry without signs of infection - Extremities Exam Extremities Exam: Calf Tenderness, Full ROM. absent: Pedal Edema, Tenderness - Back Exam Additional comments: Picc line LUE - Neurological Exam Neurological Exam: Alert, Awake, Oriented x3 - Psychiatric Exam Psychiatric exam: Normal Affect - Skin Skin Exam: Dry, Intact, Pallor, Warm Assessment and Plan - Assessment and Plan (Free Text) Plan: Plan: Sepsis Urinary tract infection Bacteremia Empyema * Code sepsis 11/08/18 * Infectious Disease (Dr. Bojorquez) on board-->help appreciated * Criteria: leukocytosis, hypotension, bandemia, hypothermia, source of inf ections: empyema, uti, bacteremia * Lactic acid: 3.5-->1.7 * elevated procalcitonin: 1.49-->0.83 on 11/11/18 * Blood culture (11/08/18): Klebsiella pneumoniae * Sensitive to Zosyn with LUPE of less than 4 * Repeat Blood culture (11/11/18): finalized as negative at 5 days * Urine culture (11/08/18): Enterococcus Faecalis * Repeat Urine Culture (11/15/18): NO growth * MRSA (11/08/18): not detected * Pleural fluid (11/09/18): no acid fast bacilli * Pleural fluid (11/09/18): Streptococcus anginosus which is sensitive to Vancomycin which the patient was restarted on 11/11/18 * Chest xray (11/08/18): layering left pleural effusion and/or consolidation * Chest xray (11/09/18): slight increase in left perihilar/basilar opacity. small left pleural effusion, grossly unchanged * Iv abx: * Zosyn 3.375 g IV Q6H (active since 11/08/18) * Vancomycin 1 gram IV Q12 (11/08/18 through 11/11/18): spoke with ID Dr. Bojorquez 11/12/18: Zosyn will cover the Klebsiella, Streptococcus and the Enterococcus * CT Chest 11/12/18: moderate left sided hydropneumothorax, moderate right pleural effusion, bilateral lower lobe consolidations, mediastinal lymphadenopathy, moderate hiatal hernia with gastric wall thickening Empyema; Loculated Left Pleural effusion * Thoracic Surgery (Dr. Bro) on board-->help appreciated * VATS procedure cancelled on 11/12/18 * Repeat CT Chest ordered 11/12/18 * Chest xray (11.08.18): layering left pleural effusion and/or consolidation * Chest xray (11/09/18): slight increase in left perihilar/basilar opacity. small left pleural effusion, grossly unchanged * S/P IR thoracentesis 11/09/18; placement of pigtail catheter * Pleural fluid (11/09/18): Streptococcus anginosus which is sensitive to Vancomycin which the patient was restarted on 11/11/18 * Pleural fluid (11/09/18): moderate PMNs, moderate gram positive cocci * Echocardiogram (08/20/18): left ventricular function is normal, left ventricular ejection fraction is within the the normal range about 55%, mild mitral valve regurgitation noted Anemia * Thoracic Surgery (Dr. Bro) on board-->help appreciated * GI (Dr. Aaron) on board-->help appreciated * Likely secondary to the suspicious mass found on EGD performed on 11/12/18? * On admission: hgb 10-->5 * blood transfusion consent obtained by resident 11/08/18 * given 3 units of PRBC overnight night and 1 FFP unit * rectal negative * ferritin low * iron low: will not repleat at this time considering multiple infections as documented in Assessment/Plan #1 * tibc: 148 low * transferrin low * Hgb 7.9 on 11/19/18 * Reticulocyte count: 2.2--> reticulocyte index: 0.12-->hypoproliferation <2 * Folate low * B12: 967 (low) * Occult blood: negative * CT Chest/Abdomen/pelvis (11/08/18): ascites, anasarca, interval loculated left pleural effusion, appearance of GE junction is indeterminate here a hiatal hernia vs mass Cirrhosis * GI (Dr. Aaron) on board-->help appreciated * CT Chest/Abdomen/pelvis IV contrast (11/08/18): prior amount of ascites and anasarca has improved. further findings per report * Abdominal US (08/18/18): limited study. echogenic liver may be seen in hepatic parenchymal disease or fatty infiltrate. nodular hepatic contour. cholelithiasis. gallbladder wall thickening/pericholecystic edema. negative sonographic Cespedes's small abdominal ascites * Hepatitis Panel negative * Blood alcohol <10 * Patient notes he has drinking 3 shots of vodka X 30 years. Diabetes mellitus 2 * Hgba1c: 8.1 * Patient is off metformin given elevated lactic on admission * RISS ACHS * Accuchecks QAC and HS GE junction Mass * Thoracic Surgery (Dr. Bro) on board-->help appreciated * GI (Dr. Aaron) on board-->help appreciated * CT Chest/Abdomen/pelvis (11/08/18): ascites, anasarca, interval loculated left pleural effusion, appearance of GE junction is indeterminate here a hiatal hernia vs mass * Patient is S/P Upper EGD on 11/12/18 and pathology from biopsy has confirmed Poorly Differentiated Squamous Cell CA * Heme/Oncologist Dr. Melody Paredes recommendation: outpatient PET Scan for staging and if NO mets then Chemo+Radiation and Surgical evaluation * Palliative Care Nurse Rosas is on board Alcohol use * Ciwa protocol * Aspiration precautions * Seizure precautions * Folic acid 1mg PO Daily * MVI tab PO daily * Thiamine 100mg PO daily * 3 shots of vodka X 30 years history * Monitor for withdrawal; patient is not currently in withdrawal * Abdominal US (08/18/18): limited study. Echogenic liver may be seen in hepatic parenchymal disease or fatty infiltrate. Nodular hepatic contour. cholelithiasis. Gallbladder wall thickening/pericholecystic edema. Negative sonographic Cespedes's small abdominal ascites Tobacco use * 1 ppd X30 years * Nicotine patch daily * Advised smoking cessation Cachexia * Related to alcohol, smoking, malnutrition, AND likely related to suspicious GE mass Status: Acute Ulcer of sacral region, stage 1 * Wound Care Nurse Joseph Amaya is on board: Aloe Jackson and continue to turn patient every 2 hours * Exam on 11/16/18 continues to reveal nonblanchable erythema to the upper buttocks and lower sacrum with NO skin breakdown noted Prophylactic measure * PT/OT eval * Protonix 40mg IV q12H * DNI/DNR * Lovenox 40mg subq daily for DVT ppx * Bilateral LE Venous Doppler 11/12/18: NO DVTs * Liquid diet + Jevity 1.5 tube feeds Disposition: As per ID, continue IV abx for total 14 days minimum (12/02/18). Encourage patient OOB to chair, Recliner request made to nursing staff. Plan for Subacute Rehab ([facility]) however insurance is covered in [place]- f/u approval for [facility]
[2018-11-22 08:38] LABS: BASO % 0.4 % (0.0-2.0); EOS # 0.3 K/uL (0.0-0.7); EOS % 3.1 % (0.0-4.0); HEMOGLOBIN 7.1 g/dL (12.0-18.0); LYMPH # 0.9 K/uL (1.0-4.3); LYMPH % 7.9 % (20.0-40.0); MEAN CELL VOLUME 81.3 fL (80.0-94.0); MEAN PLATELET VOLUME 8.7 fL (7.2-11.7); MONO % 9.4 % (0.0-10.0); NEUT # 8.6 K/uL (1.8-7.0); NEUT % 79.2 % (50.0-75.0); PLATELET COUNT 168 K/uL (130-400); RBC 2.74 Mil/uL (4.40-5.90); RED CELL DISTRIBUTION WIDTH 19.5 % (11.5-14.5); WHITE BLOOD COUNT 10.9 K/uL (4.8-10.8)
[2018-11-22 08:46] LABS: ALB/GLOB RATIO 0.7 (1.0-2.1); ALBUMIN 2.3 g/dL (3.5-5.0); ALT/SGPT 6 U/L (21-72); AST/SGOT 27 U/L (17-59); BLOOD UREA NITROGEN 11 mg/dL (9-20); CALCIUM 10.2 mg/dl (8.6-10.4); GFR NON-AFRICAN AMERICAN > 60
[2018-11-22] MEDS: (Novolin R) Insulin Human Regular 100 units/ml vial SC SCH ×2 (08:48→14:42)
[2018-11-22 10:36] LABS: BANDS 13 % (0-2); EOSINOPHIL 3 % (0-4); LYMPHOCYTE 11 % (20-40); MONOCYTE 5 % (0-10); NEUTROPHIL 68 % (50-75); PLATELET ESTIMATE NORMAL (NORMAL); TOTAL CELLS COUNTED 100
[2018-11-22 10:37] LABS: ANISOCYTOSIS MODERATE; MICROCYTOSIS MODERATE; OVALOCYTES SLIGHT; TOXIC GRANULATION PRESENT
[2018-11-22] MEDS: Pantoprazole 40 mg EC Tab PO SCH (10:51)
[2018-11-22] MEDS: Lactobacillus Acidophilus 500 MU Cap PO SCH ×2 (10:51→21:39)
[2018-11-22] MEDS: Multiple Vitamins Tab PO SCH (10:52)
[2018-11-22] MEDS: Enoxaparin 40 mg Syringe SC SCH (10:53)
[2018-11-22] MEDS: Sodium Chloride Nasal 0.65% Soln (30ml) NAS SCH ×2 (11:09→17:25)
[2018-11-22] MEDS: (Novolog) Insulin Aspart, Recombinant 100 u/ml 10 ml vial SC SCH ×3 (14:41→21:46)
--- NOTE | 2018-11-22 19:57 | CP.PCM.PN ---
Subjective - Date & Time of Evaluation Date of Evaluation: 11/21/18 Time of Evaluation: 13:00 - Subjective Subjective: No complaints. Objective - Vital Signs/Intake and Output Vital Signs (last 24 hours): Temp Pulse Resp BP Pulse Ox 98.8 F 75 20 108/67 96 11/22/18 15:00 11/22/18 15:00 11/22/18 15:00 11/22/18 15:00 11/22/18 15:00 - Medications Medications: Current Medications Acetaminophen (Tylenol 325mg Tab) 650 mg PO Q6 PRN PRN Reason: Fever >100.4 F Dextrose (Dextrose 50% Inj) 0 ml IV STAT PRN; Protocol PRN Reason: Hypoglycemia Protocol Dextrose (Glutose 15) 0 gm PO ONCE PRN; Protocol PRN Reason: Hypoglycemia Protocol Enoxaparin Sodium (Lovenox) 40 mg SC DAILY [facility] Last Admin: 11/22/18 10:53 Dose: 40 mg Fluconazole (Diflucan) 100 mg PEG DAILY [facility]; Protocol Stop: 12/05/18 10:00 Last Admin: 11/22/18 10:52 Dose: 100 mg Folic Acid (Folic Acid) 1 mg PO DAILY [facility] Last Admin: 11/22/18 10:51 Dose: 1 mg Glucagon (Glucagen Diagnostic Kit) 0 mg IM STAT PRN; Protocol PRN Reason: Hypoglycemia Protocol Piperacillin Sod/Tazobactam (Sod 3.375 gm/ Sodium Chloride) 100 mls @ 200 mls/hr IVPB Q6H [facility]; Protocol Last Admin: 11/22/18 19:51 Dose: 200 mls/hr Metronidazole (Flagyl) 500 mg in 100 mls @ 100 mls/hr IVPB Q8H [facility]; Protocol Last Admin: 11/22/18 15:15 Dose: 100 mls/hr Insulin Aspart (Novolog) 0 unit SC ACHS [facility]; Protocol Last Admin: 11/22/18 17:28 Dose: 1 units Lactobacillus Acidophilus (Lactobacillus) 1 cap PO Q12H [facility] Last Admin: 11/22/18 10:51 Dose: 1 cap Metformin HCl (Glucophage) 500 mg PO BIDCC [facility] Last Admin: 11/22/18 17:24 Dose: 500 mg Mirtazapine (Remeron) 15 mg PO HS [facility] Last Admin: 11/21/18 21:11 Dose: 15 mg Multivitamins (Hexavitamin) 1 tab PO DAILY [facility] Last Admin: 11/22/18 10:52 Dose: 1 tab Nicotine (Nicoderm Cq) 1 patch TD DAILY [facility] Last Admin: 11/22/18 10:51 Dose: 1 patch Pantoprazole Sodium (Protonix Ec Tab) 40 mg PO DAILY [facility] Last Admin: 11/22/18 10:51 Dose: 40 mg Sertraline HCl (Zoloft) 25 mg PO DAILY [facility] Last Admin: 11/22/18 11:06 Dose: 25 mg Sodium Chloride ([place] Baby Saline 30 Ml) 1 ml RODNEY BID [facility] Last Admin: 11/22/18 17:25 Dose: 1 spr Thiamine HCl (Vitamin B1 Tab) 100 mg PO DAILY [facility] Last Admin: 11/22/18 10:51 Dose: 100 mg - Labs Labs: 11/22/18 08:21 11/22/18 08:21 PT 15.2 SECONDS (9.7-12.2) H 11/12/18 06:13 INR 1.4 11/12/18 06:13 APTT 29 SECONDS (21-34) 11/12/18 06:13 - Head Exam Head Exam: ATRAUMATIC - Eye Exam Eye Exam: Normal appearance - ENT Exam ENT Exam: Mucous Membranes Dry - Respiratory Exam Respiratory Exam: NORMAL BREATHING PATTERN - Cardiovascular Exam Cardiovascular Exam: +S1, +S2 - GI/Abdominal Exam GI & Abdominal Exam: Normal Bowel Sounds Assessment and Plan (1) Anemia Assessment & Plan: iron deficiency anemia and chronic disease iron supplementation when infection cleared Status: Acute (2) Esophageal mass Assessment & Plan: squamous cell carcinoma outpatient PET CT for staging if no distant mets; would benefit from chemo+radiation and evaluation for surgical candidacy s/p feeding tube Status: Acute
--- NOTE | 2018-11-22 19:58 | CP.PCM.PN ---
Subjective - Date & Time of Evaluation Date of Evaluation: 11/22/18 Time of Evaluation: 19:00 - Subjective Subjective: No complaints. Objective - Vital Signs/Intake and Output Vital Signs (last 24 hours): Temp Pulse Resp BP Pulse Ox 98.8 F 75 20 108/67 96 11/22/18 15:00 11/22/18 15:00 11/22/18 15:00 11/22/18 15:00 11/22/18 15:00 - Medications Medications: Current Medications Acetaminophen (Tylenol 325mg Tab) 650 mg PO Q6 PRN PRN Reason: Fever >100.4 F Dextrose (Dextrose 50% Inj) 0 ml IV STAT PRN; Protocol PRN Reason: Hypoglycemia Protocol Dextrose (Glutose 15) 0 gm PO ONCE PRN; Protocol PRN Reason: Hypoglycemia Protocol Enoxaparin Sodium (Lovenox) 40 mg SC DAILY [facility] Last Admin: 11/22/18 10:53 Dose: 40 mg Fluconazole (Diflucan) 100 mg PEG DAILY [facility]; Protocol Stop: 12/05/18 10:00 Last Admin: 11/22/18 10:52 Dose: 100 mg Folic Acid (Folic Acid) 1 mg PO DAILY [facility] Last Admin: 11/22/18 10:51 Dose: 1 mg Glucagon (Glucagen Diagnostic Kit) 0 mg IM STAT PRN; Protocol PRN Reason: Hypoglycemia Protocol Piperacillin Sod/Tazobactam (Sod 3.375 gm/ Sodium Chloride) 100 mls @ 200 mls/hr IVPB Q6H [facility]; Protocol Last Admin: 11/22/18 19:51 Dose: 200 mls/hr Metronidazole (Flagyl) 500 mg in 100 mls @ 100 mls/hr IVPB Q8H [facility]; Protocol Last Admin: 11/22/18 15:15 Dose: 100 mls/hr Insulin Aspart (Novolog) 0 unit SC ACHS [facility]; Protocol Last Admin: 11/22/18 17:28 Dose: 1 units Lactobacillus Acidophilus (Lactobacillus) 1 cap PO Q12H [facility] Last Admin: 11/22/18 10:51 Dose: 1 cap Metformin HCl (Glucophage) 500 mg PO BIDCC [facility] Last Admin: 11/22/18 17:24 Dose: 500 mg Mirtazapine (Remeron) 15 mg PO HS [facility] Last Admin: 11/21/18 21:11 Dose: 15 mg Multivitamins (Hexavitamin) 1 tab PO DAILY [facility] Last Admin: 11/22/18 10:52 Dose: 1 tab Nicotine (Nicoderm Cq) 1 patch TD DAILY [facility] Last Admin: 11/22/18 10:51 Dose: 1 patch Pantoprazole Sodium (Protonix Ec Tab) 40 mg PO DAILY [facility] Last Admin: 11/22/18 10:51 Dose: 40 mg Sertraline HCl (Zoloft) 25 mg PO DAILY [facility] Last Admin: 11/22/18 11:06 Dose: 25 mg Sodium Chloride ([place] Baby Saline 30 Ml) 1 ml RODNEY BID [facility] Last Admin: 11/22/18 17:25 Dose: 1 spr Thiamine HCl (Vitamin B1 Tab) 100 mg PO DAILY [facility] Last Admin: 11/22/18 10:51 Dose: 100 mg - Labs Labs: 11/22/18 08:21 11/22/18 08:21 PT 15.2 SECONDS (9.7-12.2) H 11/12/18 06:13 INR 1.4 11/12/18 06:13 APTT 29 SECONDS (21-34) 11/12/18 06:13 - Head Exam Head Exam: ATRAUMATIC - Eye Exam Eye Exam: Normal appearance - ENT Exam ENT Exam: Mucous Membranes Dry - Respiratory Exam Respiratory Exam: NORMAL BREATHING PATTERN - Cardiovascular Exam Cardiovascular Exam: +S1, +S2 - GI/Abdominal Exam GI & Abdominal Exam: Normal Bowel Sounds Assessment and Plan (1) Anemia Assessment & Plan: iron deficiency anemia and chronic disease iron supplementation when infection cleared Status: Acute (2) Esophageal mass Assessment & Plan: squamous cell carcinoma outpatient PET CT for staging if no distant mets; would benefit from chemo+radiation and evaluation for surgical candidacy s/p feeding tube Status: Acute
[2018-11-23] MEDS: Piperacillin/Tazobact 3.375 GM in Sodium Chloride 100 ML IVPB SCH ×4 (02:04→20:15)
[2018-11-23] MEDS: metroNIDAZOLE IV 500 mg/100 ml 500 MG/100 ML BAG IVPB SCH ×3 (06:06→21:25)
[2018-11-23 07:47] LABS: BASO # 0.1 K/uL (0.0-0.2); BASO % 0.7 % (0.0-2.0); EOS # 0.4 K/uL (0.0-0.7); EOS % 4.6 % (0.0-4.0); HEMOGLOBIN 6.9 g/dL (12.0-18.0); LYMPH # 1.1 K/uL (1.0-4.3); LYMPH % 11.6 % (20.0-40.0); MEAN CELL VOLUME 80.5 fL (80.0-94.0); MEAN CORPUSCULAR HEMOGLOBIN 26.6 pg (27.0-31.0); MEAN CORPUSCULAR HGB CONC 33.1 g/dL (33.0-37.0); MEAN PLATELET VOLUME 8.8 fL (7.2-11.7); NEUT % 73.1 % (50.0-75.0); RBC 2.59 Mil/uL (4.40-5.90); RED CELL DISTRIBUTION WIDTH 19.8 % (11.5-14.5); WHITE BLOOD COUNT 9.6 K/uL (4.8-10.8)
[2018-11-23 07:58] LABS: ALB/GLOB RATIO 0.7 (1.0-2.1); ALBUMIN 2.2 g/dL (3.5-5.0); ALT/SGPT 10 U/L (21-72); AST/SGOT 10 U/L (17-59); BLOOD UREA NITROGEN 11 mg/dL (9-20); CALCIUM 10.2 mg/dl (8.6-10.4); GFR NON-AFRICAN AMERICAN > 60
[2018-11-23] MEDS: (Novolog) Insulin Aspart, Recombinant 100 u/ml 10 ml vial SC SCH ×4 (08:08→22:18)
--- NOTE | 2018-11-23 09:41 | CP.PCM.PN ---
<Berenice Barnett P - Last Filed: 11/23/18 20:05> Subjective - Date & Time of Evaluation Date of Evaluation: 11/23/18 Time of Evaluation: 09:41 - Subjective Subjective: Progress note for Dr. Sebastian. Patient seen and examined at bedside. Patient complains of persistent fatigue and slight dyspnea on exertion. Denies chest pain, dizziness, lightheadedness, nausea, vomiting, diaphoresis, fever and chills. Objective - Vital Signs/Intake and Output Vital Signs (last 24 hours): Temp Pulse Resp BP Pulse Ox 98.2 F 73 18 132/74 98 11/23/18 07:10 11/23/18 07:10 11/23/18 07:10 11/23/18 07:10 11/23/18 07:10 Intake and Output: 11/23/18 11/23/18 06:59 18:59 Intake Total 440 Output Total 400 Balance 40 - Medications Medications: Current Medications Acetaminophen (Tylenol 325mg Tab) 650 mg PO Q6 PRN PRN Reason: Fever >100.4 F Dextrose (Dextrose 50% Inj) 0 ml IV STAT PRN; Protocol PRN Reason: Hypoglycemia Protocol Dextrose (Glutose 15) 0 gm PO ONCE PRN; Protocol PRN Reason: Hypoglycemia Protocol Enoxaparin Sodium (Lovenox) 40 mg SC DAILY [facility] Last Admin: 11/22/18 10:53 Dose: 40 mg Fluconazole (Diflucan) 100 mg PEG DAILY [facility]; Protocol Stop: 12/05/18 10:00 Last Admin: 11/22/18 10:52 Dose: 100 mg Folic Acid (Folic Acid) 1 mg PO DAILY [facility] Last Admin: 11/22/18 10:51 Dose: 1 mg Glucagon (Glucagen Diagnostic Kit) 0 mg IM STAT PRN; Protocol PRN Reason: Hypoglycemia Protocol Piperacillin Sod/Tazobactam (Sod 3.375 gm/ Sodium Chloride) 100 mls @ 200 mls/hr IVPB Q6H [facility]; Protocol Last Admin: 11/23/18 08:07 Dose: 200 mls/hr Metronidazole (Flagyl) 500 mg in 100 mls @ 100 mls/hr IVPB Q8H [facility]; Protocol Last Admin: 11/23/18 06:06 Dose: 100 mls/hr Insulin Aspart (Novolog) 0 unit SC ACHS [facility]; Protocol Last Admin: 11/23/18 08:08 Dose: 3 units Lactobacillus Acidophilus (Lactobacillus) 1 cap PO Q12H [facility] Last Admin: 11/22/18 21:39 Dose: 1 cap Metformin HCl (Glucophage) 500 mg PO BIDCC [facility] Last Admin: 11/23/18 08:08 Dose: 500 mg Mirtazapine (Remeron) 15 mg PO HS [facility] Last Admin: 11/22/18 21:39 Dose: 15 mg Multivitamins (Hexavitamin) 1 tab PO DAILY [facility] Last Admin: 11/22/18 10:52 Dose: 1 tab Nicotine (Nicoderm Cq) 1 patch TD DAILY [facility] Last Admin: 11/22/18 10:51 Dose: 1 patch Pantoprazole Sodium (Protonix Ec Tab) 40 mg PO DAILY [facility] Last Admin: 11/22/18 10:51 Dose: 40 mg Potassium Chloride (Potassium Chloride Oral Soln) 40 meq PO ONCE ONE Stop: 11/23/18 09:36 Sertraline HCl (Zoloft) 25 mg PO DAILY [facility] Last Admin: 11/22/18 11:06 Dose: 25 mg Sodium Chloride ([place] Baby Saline 30 Ml) 1 ml RODNEY BID [facility] Last Admin: 11/22/18 17:25 Dose: 1 spr Thiamine HCl (Vitamin B1 Tab) 100 mg PO DAILY [facility] Last Admin: 11/22/18 10:51 Dose: 100 mg - Labs Labs: 11/23/18 07:30 11/23/18 07:30 PT 15.2 SECONDS (9.7-12.2) H 11/12/18 06:13 INR 1.4 11/12/18 06:13 APTT 29 SECONDS (21-34) 11/12/18 06:13 - Additional Findings Additional findings: - Constitutional Appears: No Acute Distress, cachectic - Head Exam Head Exam: ATRAUMATIC, NORMOCEPHALIC - Eye Exam Eye Exam: EOMI, Normal appearance, PERRL - ENT Exam ENT Exam: Mucous Membranes Moist - Neck Exam Neck Exam: Full ROM, Normal Inspection - Respiratory Exam Respiratory Exam: Decreased Breath Sounds (diffusely) - Cardiovascular Exam Cardiovascular Exam: REGULAR RHYTHM, +S1, +S2 - GI/Abdominal Exam GI & Abdominal Exam: Soft. absent: Distended, Firm, Guarding, Rigid, Tenderness Additional comments: PEG tube in place, area clean and dry without signs of infection - Extremities Exam Extremities Exam: Calf Tenderness, Full ROM, Picc line RUE. absent: Pedal Edema, Tenderness - Neurological Exam Neurological Exam: Alert, Awake, Oriented x3 - Psychiatric Exam Psychiatric exam: Normal Affect - Skin Skin Exam: Dry, Intact, Pallor, Warm. Erythema to sacral area improved, no skin breakdown. Assessment and Plan - Assessment and Plan (Free Text) Plan: Sepsis Urinary tract infection Bacteremia Empyema * Code sepsis 11/08/18 * Infectious Disease (Dr. Bojorquez) on board-->help appreciated * Criteria: leukocytosis, hypotension, bandemia, hypothermia, source of infections: empyema, uti, bacteremia * Lactic acid: 3.5-->1.7 on 11/08/18 * elevated procalcitonin: 1.49-->0.83 on 11/11/18 * Blood culture (11/08/18): Klebsiella pneumoniae * Sensitive to Zosyn with LUPE of less than 4 * Repeat Blood culture (11/11/18): finalized as negative at 5 days * Urine culture (11/08/18): Enterococcus Faecalis * Repeat Urine Culture (11/15/18): NO growth * MRSA (11/08/18): not detected * Pleural fluid (11/09/18): no acid fast bacilli * Pleural fluid (11/09/18): Streptococcus anginosus which is sensitive to Vancomycin which the patient was restarted on 11/11/18 * Chest xray (11/08/18): layering left pleural effusion and/or consolidation * Chest xray (11/09/18): slight increase in left perihilar/basilar opacity. small left pleural effusion, grossly unchanged * Iv abx: * Zosyn 3.375 g IV Q6H (active since 11/08/18) * Vancomycin 1 gram IV Q12 (11/08/18 through 11/11/18): spoke with ID Dr. Bojorquez 11/12/18: Zosyn will cover the Klebsiella, Streptococcus and the Enterococcus * CT Chest 11/12/18: moderate left sided hydropneumothorax, moderate right pleural effusion, bilateral lower lobe consolidations, mediastinal lymphadenopathy, moderate hiatal hernia with gastric wall thickening Empyema; Loculated Left Pleural effusion * Thoracic Surgery (Dr. Bro) on board-->help appreciated * VATS procedure cancelled on 11/12/18 * Repeat CT Chest ordered 11/12/18 * Chest xray (11.08.18): layering left pleural effusion and/or consolidation * Chest xray (11/09/18): slight increase in left perihilar/basilar opacity. small left pleural effusion, grossly unchanged * S/P IR thoracentesis 11/09/18; placement of pigtail catheter * Pleural fluid (11/09/18): Streptococcus anginosus which is sensitive to Vancomycin which the patient was restarted on 11/11/18 * Pleural fluid (11/09/18): moderate PMNs, moderate gram positive cocci * Echocardiogram (08/20/18): left ventricular function is normal, left ventricular ejection fraction is within the the normal range about 55%, mild mitral valve regurgitation noted Anemia * Thoracic Surgery (Dr. Bro) on board-->help appreciated * GI (Dr. Aaron) on board-->help appreciated * Likely secondary to the suspicious mass found on EGD performed on 11/12/18? * On admission: hgb 10-->5 * blood transfusion consent obtained by resident 11/08/18 * given 3 units of PRBC overnight night and 1 FFP unit * rectal negative * ferritin low * iron low: will not repleat at this time considering multiple infections as documented in Assessment/Plan #1 * tibc: 148 low * transferrin low * Hgb 7.9 on 11/19/18 * Reticulocyte count: 2.2--> reticulocyte index: 0.12-->hypoproliferation <2 * Folate low * B12: 967 (low) * Occult blood: negative * CT Chest/Abdomen/pelvis (11/08/18): ascites, anasarca, interval loculated left pleural effusion, appearance of GE junction is indeterminate here a hiatal hernia vs mass * 2 units PRBC 11/23/18 Cirrhosis * GI (Dr. Aaron) on board-->help appreciated * CT Chest/Abdomen/pelvis IV contrast (11/08/18): prior amount of ascites and anasarca has improved. further findings per report * Abdominal US (08/18/18): limited study. echogenic liver may be seen in hepatic parenchymal disease or fatty infiltrate. nodular hepatic contour. cholelithiasis. gallbladder wall thickening/pericholecystic edema. negative sonographic Cespedes's small abdominal ascites * Hepatitis Panel negative * Blood alcohol <10 * Patient notes he has drinking 3 shots of vodka X 30 years. Diabetes mellitus 2 * Hgba1c: 8.1 * Patient is off metformin given elevated lactic on admission * RISS ACHS * Accuchecks QAC and HS GE junction Mass * Thoracic Surgery (Dr. Bro) on board-->help appreciated * GI (Dr. Aaron) on board-->help appreciated * CT Chest/Abdomen/pelvis (11/08/18): ascites, anasarca, interval loculated left pleural effusion, appearance of GE junction is indeterminate here a hiatal hernia vs mass * Patient is S/P Upper EGD on 11/12/18 and pathology from biopsy has confirmed Poorly Differentiated Squamous Cell CA * Heme/Oncologist Dr. Melody Paredes recommendation: outpatient PET Scan for staging and if NO mets then Chemo+Radiation and Surgical evaluation * Palliative Care Nurse Rosas is on board Alcohol use * Ciwa protocol * Aspiration precautions * Seizure precautions * Folic acid 1mg PO Daily * MVI tab PO daily * Thiamine 100mg PO daily * 3 shots of vodka X 30 years history * Monitor for withdrawal; patient is not currently in withdrawal * Abdominal US (08/18/18): limited study. Echogenic liver may be seen in hepatic parenchymal disease or fatty infiltrate. Nodular hepatic contour. cholelithiasis. Gallbladder wall thickening/pericholecystic edema. Negative s onographic Cespedes's small abdominal ascites Tobacco use * 1 ppd X30 years * Nicotine patch daily * Advised smoking cessation Cachexia * Related to alcohol, smoking, malnutrition, AND likely related to suspicious GE mass Status: Acute Ulcer of sacral region, stage 1 * Wound Care Nurse Joseph Amaya is on board: Aloe [place] and continue to turn patient every 2 hours * 11/23/18- erythema improved, no skin breakdown. Prophylactic measure * PT/OT eval * Protonix 40mg IV q12H * DNI/DNR * Lovenox 40mg subq daily- on hold * SCDs * Bilateral LE Venous Doppler 11/12/18: NO DVTs * Liquid diet + Jevity 1.5 tube feeds Disposition: As per ID, continue IV abx for total 14 days minimum (11/30/18). Hgb 6.9 today. Patient to receive 2 units PRBC today. Will monitor. Plan for Subacute Rehab ( [facility]) however insurance is covered in [place]- f/u approval for [facility]. APS to be contacted by [facility] to evaluate patient's living conditions. Patient to have PET scan outpatient, if negative-> chemo and radiation followed by surgery consult. <Nestor Sebastian - Last Filed: 11/24/18 14:55> Objective - Vital Signs/Intake and Output Vital Signs (last 24 hours): Temp Pulse Resp BP Pulse Ox 98.4 F 85 20 133/77 97 11/24/18 07:00 11/24/18 07:00 11/24/18 07:00 11/24/18 14:39 11/24/18 07:00 Intake and Output: 11/24/18 11/24/18 06:59 18:59 Intake Total 325 700 Balance 325 700 - Medications Medications: Current Medications Acetaminophen (Tylenol 325mg Tab) 650 mg PO Q6 PRN PRN Reason: Fever >100.4 F Acetaminophen (Tylenol 325mg Tab) 650 mg PO ONCE PRN PRN Reason: blood transfusion Last Admin: 11/23/18 14:02 Dose: 650 mg Dextrose (Dextrose 50% Inj) 0 ml IV STAT PRN; Protocol PRN Reason: Hypoglycemia Protocol Dextrose (Glutose 15) 0 gm PO ONCE PRN; Protocol PRN Reason: Hypoglycemia Protocol Diphenhydramine HCl (Benadryl) 25 mg PO ONCE PRN PRN Reason: Blood transfusion Last Admin: 11/23/18 14:02 Dose: 25 mg Ferric Sodium Gluconate Complex (Ferrlecit) 125 mg IVPB DAILY [facility] Stop: 12/02/18 10:01 Last Admin: 11/24/18 09:17 Dose: 125 mg Fluconazole (Diflucan) 100 mg PEG DAILY [facility]; Protocol Stop: 12/05/18 10:00 Last Admin: 11/24/18 09:17 Dose: 100 mg Folic Acid (Folic Acid) 1 mg PO DAILY [facility] Last Admin: 11/24/18 09:17 Dose: 1 mg Glucagon (Glucagen Diagnostic Kit) 0 mg IM STAT PRN; Protocol PRN Reason: Hypoglycemia Protocol Piperacillin Sod/Tazobactam (Sod 3.375 gm/ Sodium Chloride) 100 mls @ 200 mls/hr IVPB Q6H [facility]; Protocol Last Admin: 11/24/18 13:39 Dose: 200 mls/hr Metronidazole (Flagyl) 500 mg in 100 mls @ 100 mls/hr IVPB Q8H [facility]; Protocol Last Admin: 11/24/18 13:38 Dose: 100 mls/hr Insulin Aspart (Novolog) 0 unit SC ACHS [facility]; Protocol Last Admin: 11/24/18 12:31 Dose: 3 units Lactobacillus Acidophilus (Lactobacillus) 1 cap PO Q12H [facility] Last Admin: 11/24/18 09:17 Dose: 1 cap Metformin HCl (Glucophage) 500 mg PO BIDCC [facility] Last Admin: 11/24/18 08:14 Dose: 500 mg Mirtazapine (Remeron) 15 mg PO HS [facility] Last Admin: 11/23/18 21:26 Dose: 15 mg Multivitamins (Hexavitamin) 1 tab PO DAILY [facility] Last Admin: 11/24/18 09:17 Dose: 1 tab Nicotine (Nicoderm Cq) 1 patch TD DAILY [facility] Last Admin: 11/24/18 09:21 Dose: 1 patch Pantoprazole Sodium (Protonix Ec Tab) 40 mg PO DAILY [facility] Last Admin: 11/24/18 09:17 Dose: 40 mg Sertraline HCl (Zoloft) 25 mg PO DAILY [facility] Last Admin: 11/24/18 11:10 Dose: 25 mg Sodium Chloride ([place] Baby Saline 30 Ml) 1 ml RODNEY BID [facility] Last Admin: 11/24/18 09:16 Dose: 1 spr Thiamine HCl (Vitamin B1 Tab) 100 mg PO DAILY [facility] Last Admin: 11/24/18 09:17 Dose: 100 mg - Labs Labs: 11/24/18 07:44 11/24/18 07:44 PT 15.2 SECONDS (9.7-12.2) H 11/12/18 06:13 INR 1.4 11/12/18 06:13 APTT 29 SECONDS (21-34) 11/12/18 06:13 Attending/Attestation - Attestation I have personally seen and examined this patient.: Yes I have fully participated in the care of the patient.: Yes I have reviewed all pertinent clinical information, including history, physical exam and plan: Yes Notes (Text): 11/24/18 14:55 This is a late entry. Care of this patient was gone over with in detail with resident Dr. Barnett. Nestor Sebastian D.O.
[2018-11-23] MEDS ORDERED: Potassium Chloride 20 mEq/15 ml LIQ UD PO ONE (09:45)
[2018-11-23] MEDS: Multiple Vitamins Tab PO SCH (10:21)
[2018-11-23] MEDS: Pantoprazole 40 mg EC Tab PO SCH (10:22)
[2018-11-23] MEDS: Lactobacillus Acidophilus 500 MU Cap PO SCH ×2 (10:22→21:26)
[2018-11-23] MEDS: Sodium Chloride Nasal 0.65% Soln (30ml) NAS SCH ×2 (10:23→17:43)
--- NOTE | 2018-11-23 18:50 | CP.PCM.PN ---
Subjective - Date & Time of Evaluation Date of Evaluation: 11/23/18 Time of Evaluation: 08:00 - Subjective Subjective: SEEN ON ROUNDS DENIES FEVER NAD Objective - Vital Signs/Intake and Output Vital Signs (last 24 hours): Temp Pulse Resp BP Pulse Ox 98.2 F 69 20 122/74 97 11/23/18 17:58 11/23/18 17:58 11/23/18 17:58 11/23/18 17:58 11/23/18 13:29 Intake and Output: 11/23/18 11/23/18 06:59 18:59 Intake Total 440 325 Output Total 400 Balance 40 325 - Medications Medications: Current Medications Acetaminophen (Tylenol 325mg Tab) 650 mg PO Q6 PRN PRN Reason: Fever >100.4 F Acetaminophen (Tylenol 325mg Tab) 650 mg PO ONCE PRN PRN Reason: blood transfusion Last Admin: 11/23/18 14:02 Dose: 650 mg Dextrose (Dextrose 50% Inj) 0 ml IV STAT PRN; Protocol PRN Reason: Hypoglycemia Protocol Dextrose (Glutose 15) 0 gm PO ONCE PRN; Protocol PRN Reason: Hypoglycemia Protocol Diphenhydramine HCl (Benadryl) 25 mg PO ONCE PRN PRN Reason: Blood transfusion Last Admin: 11/23/18 14:02 Dose: 25 mg Fluconazole (Diflucan) 100 mg PEG DAILY [facility]; Protocol Stop: 12/05/18 10:00 Last Admin: 11/23/18 10:23 Dose: 100 mg Folic Acid (Folic Acid) 1 mg PO DAILY [facility] Last Admin: 11/23/18 10:22 Dose: 1 mg Glucagon (Glucagen Diagnostic Kit) 0 mg IM STAT PRN; Protocol PRN Reason: Hypoglycemia Protocol Piperacillin Sod/Tazobactam (Sod 3.375 gm/ Sodium Chloride) 100 mls @ 200 mls/hr IVPB Q6H [facility]; Protocol Last Admin: 11/23/18 14:37 Dose: Not Given Metronidazole (Flagyl) 500 mg in 100 mls @ 100 mls/hr IVPB Q8H [facility]; Protocol Last Admin: 11/23/18 14:37 Dose: Not Given Insulin Aspart (Novolog) 0 unit SC ACHS [facility]; Protocol Last Admin: 11/23/18 17:40 Dose: 3 units Lactobacillus Acidophilus (Lactobacillus) 1 cap PO Q12H [facility] Last Admin: 11/23/18 10:22 Dose: 1 cap Metformin HCl (Glucophage) 500 mg PO BIDCC [facility] Last Admin: 11/23/18 17:40 Dose: 500 mg Mirtazapine (Remeron) 15 mg PO HS [facility] Last Admin: 11/22/18 21:39 Dose: 15 mg Multivitamins (Hexavitamin) 1 tab PO DAILY [facility] Last Admin: 11/23/18 10:21 Dose: 1 tab Nicotine (Nicoderm Cq) 1 patch TD DAILY [facility] Last Admin: 11/23/18 10:21 Dose: 1 patch Pantoprazole Sodium (Protonix Ec Tab) 40 mg PO DAILY [facility] Last Admin: 11/23/18 10:22 Dose: 40 mg Sertraline HCl (Zoloft) 25 mg PO DAILY [facility] Last Admin: 11/23/18 11:10 Dose: 25 mg Sodium Chloride ([place] Baby Saline 30 Ml) 1 ml RODNEY BID [facility] Last Admin: 11/23/18 17:43 Dose: 1 spr Thiamine HCl (Vitamin B1 Tab) 100 mg PO DAILY [facility] Last Admin: 11/23/18 10:22 Dose: 100 mg - Labs Labs: 11/23/18 07:30 11/23/18 07:30 PT 15.2 SECONDS (9.7-12.2) H 11/12/18 06:13 INR 1.4 11/12/18 06:13 APTT 29 SECONDS (21-34) 11/12/18 06:13 Assessment and Plan (1) Esophageal mass Status: Acute (2) Abnormal CT scan, chest Status: Acute (3) Alcohol use Status: Acute (4) Anemia Status: Acute (5) Cachexia Status: Acute (6) Pleural effusion Status: Acute (7) Sepsis Status: Acute (8) Cirrhosis Status: Acute (9) Diabetes mellitus Status: Acute (10) Gram negative sepsis Status: Acute (11) Squamous cell cancer of cardio-esophageal junction Status: Acute
--- NOTE | 2018-11-23 19:39 | CP.PCM.PN ---
Subjective - Date & Time of Evaluation Date of Evaluation: 11/23/18 Time of Evaluation: 17:00 - Subjective Subjective: No complaints, receiving PRBC transfusion Objective - Vital Signs/Intake and Output Vital Signs (last 24 hours): Temp Pulse Resp BP Pulse Ox 98.3 F 70 20 134/78 97 11/23/18 19:19 11/23/18 19:19 11/23/18 19:19 11/23/18 19:19 11/23/18 13:29 Intake and Output: 11/23/18 11/24/18 18:59 06:59 Intake Total 325 325 Balance 325 325 - Medications Medications: Current Medications Acetaminophen (Tylenol 325mg Tab) 650 mg PO Q6 PRN PRN Reason: Fever >100.4 F Acetaminophen (Tylenol 325mg Tab) 650 mg PO ONCE PRN PRN Reason: blood transfusion Last Admin: 11/23/18 14:02 Dose: 650 mg Dextrose (Dextrose 50% Inj) 0 ml IV STAT PRN; Protocol PRN Reason: Hypoglycemia Protocol Dextrose (Glutose 15) 0 gm PO ONCE PRN; Protocol PRN Reason: Hypoglycemia Protocol Diphenhydramine HCl (Benadryl) 25 mg PO ONCE PRN PRN Reason: Blood transfusion Last Admin: 11/23/18 14:02 Dose: 25 mg Fluconazole (Diflucan) 100 mg PEG DAILY [facility]; Protocol Stop: 12/05/18 10:00 Last Admin: 11/23/18 10:23 Dose: 100 mg Folic Acid (Folic Acid) 1 mg PO DAILY [facility] Last Admin: 11/23/18 10:22 Dose: 1 mg Glucagon (Glucagen Diagnostic Kit) 0 mg IM STAT PRN; Protocol PRN Reason: Hypoglycemia Protocol Piperacillin Sod/Tazobactam (Sod 3.375 gm/ Sodium Chloride) 100 mls @ 200 mls/hr IVPB Q6H [facility]; Protocol Last Admin: 11/23/18 14:37 Dose: Not Given Metronidazole (Flagyl) 500 mg in 100 mls @ 100 mls/hr IVPB Q8H [facility]; Protocol Last Admin: 11/23/18 14:37 Dose: Not Given Insulin Aspart (Novolog) 0 unit SC ACHS [facility]; Protocol Last Admin: 11/23/18 17:40 Dose: 3 units Lactobacillus Acidophilus (Lactobacillus) 1 cap PO Q12H [facility] Last Admin: 11/23/18 10:22 Dose: 1 cap Metformin HCl (Glucophage) 500 mg PO BIDCC [facility] Last Admin: 11/23/18 17:40 Dose: 500 mg Mirtazapine (Remeron) 15 mg PO HS [facility] Last Admin: 11/22/18 21:39 Dose: 15 mg Multivitamins (Hexavitamin) 1 tab PO DAILY [facility] Last Admin: 11/23/18 10:21 Dose: 1 tab Nicotine (Nicoderm Cq) 1 patch TD DAILY [facility] Last Admin: 11/23/18 10:21 Dose: 1 patch Pantoprazole Sodium (Protonix Ec Tab) 40 mg PO DAILY [facility] Last Admin: 11/23/18 10:22 Dose: 40 mg Sertraline HCl (Zoloft) 25 mg PO DAILY [facility] Last Admin: 11/23/18 11:10 Dose: 25 mg Sodium Chloride ([place] Baby Saline 30 Ml) 1 ml RODNEY BID [facility] Last Admin: 11/23/18 17:43 Dose: 1 spr Thiamine HCl (Vitamin B1 Tab) 100 mg PO DAILY [facility] Last Admin: 11/23/18 10:22 Dose: 100 mg - Labs Labs: 11/23/18 07:30 11/23/18 07:30 PT 15.2 SECONDS (9.7-12.2) H 11/12/18 06:13 INR 1.4 11/12/18 06:13 APTT 29 SECONDS (21-34) 11/12/18 06:13 - Head Exam Head Exam: ATRAUMATIC - Eye Exam Eye Exam: Normal appearance - ENT Exam ENT Exam: Mucous Membranes Dry - Respiratory Exam Respiratory Exam: NORMAL BREATHING PATTERN - Cardiovascular Exam Cardiovascular Exam: +S1, +S2 - GI/Abdominal Exam GI & Abdominal Exam: Normal Bowel Sounds Assessment and Plan (1) Anemia Assessment & Plan: iron deficiency 2U PRBC today will start IV iron Status: Acute (2) Esophageal mass Assessment & Plan: outpatient PET CT scan for staging outpatient treatment Status: Acute
[2018-11-24 00:48] LABS: HEMOGLOBIN 9.8 g/dL (12.0-18.0); MEAN CELL VOLUME 82.7 fL (80.0-94.0); MEAN CORPUSCULAR HGB CONC 32.7 g/dL (33.0-37.0); MEAN PLATELET VOLUME 8.4 fL (7.2-11.7); RBC 3.64 Mil/uL (4.40-5.90); RED CELL DISTRIBUTION WIDTH 18.2 % (11.5-14.5)
[2018-11-24] MEDS: Piperacillin/Tazobact 3.375 GM in Sodium Chloride 100 ML IVPB SCH ×4 (01:59→21:01)
--- NOTE | 2018-11-24 02:41 | CP.PCM.PN ---
<Arthur Alonso - Last Filed: 11/24/18 03:40> Subjective - Date & Time of Evaluation Date of Evaluation: 11/24/18 Time of Evaluation: 05:00 - Subjective Subjective: PGY-[address] Nestor Sebastian Patient is seen and examined at bedside. Patient has no complaints at this time, no acute changes overnight. Patient states has been having watery bowel movements since starting tube feeds. Patient denies blood or bruising, denies fever, chills, chest pain, sob, abdominal pain, n/v/d/c. Objective - Vital Signs/Intake and Output Vital Signs (last 24 hours): Temp Pulse Resp BP Pulse Ox 98.5 F 73 18 153/84 H 98 11/23/18 23:14 11/23/18 23:14 11/23/18 23:14 11/23/18 23:14 11/23/18 23:14 Intake and Output: 11/23/18 11/24/18 18:59 06:59 Intake Total 325 325 Balance 325 325 - Medications Medications: Current Medications Acetaminophen (Tylenol 325mg Tab) 650 mg PO Q6 PRN PRN Reason: Fever >100.4 F Acetaminophen (Tylenol 325mg Tab) 650 mg PO ONCE PRN PRN Reason: blood transfusion Last Admin: 11/23/18 14:02 Dose: 650 mg Dextrose (Dextrose 50% Inj) 0 ml IV STAT PRN; Protocol PRN Reason: Hypoglycemia Protocol Dextrose (Glutose 15) 0 gm PO ONCE PRN; Protocol PRN Reason: Hypoglycemia Protocol Diphenhydramine HCl (Benadryl) 25 mg PO ONCE PRN PRN Reason: Blood transfusion Last Admin: 11/23/18 14:02 Dose: 25 mg Ferric Sodium Gluconate Complex (Ferrlecit) 125 mg IVPB DAILY [facility] Stop: 12/02/18 10:01 Fluconazole (Diflucan) 100 mg PEG DAILY [facility]; Protocol Stop: 12/05/18 10:00 Last Admin: 11/23/18 10:23 Dose: 100 mg Folic Acid (Folic Acid) 1 mg PO DAILY [facility] Last Admin: 11/23/18 10:22 Dose: 1 mg Glucagon (Glucagen Diagnostic Kit) 0 mg IM STAT PRN; Protocol PRN Reason: Hypoglycemia Protocol Piperacillin Sod/Tazobactam (Sod 3.375 gm/ Sodium Chloride) 100 mls @ 200 mls/hr IVPB Q6H [facility]; Protocol Last Admin: 11/24/18 01:59 Dose: 200 mls/hr Metronidazole (Flagyl) 500 mg in 100 mls @ 100 mls/hr IVPB Q8H [facility]; Protocol Last Admin: 11/23/18 21:25 Dose: 100 mls/hr Insulin Aspart (Novolog) 0 unit SC ACHS [facility]; Protocol Last Admin: 11/23/18 22:18 Dose: Not Given Lactobacillus Acidophilus (Lactobacillus) 1 cap PO Q12H [facility] Last Admin: 11/23/18 21:26 Dose: 1 cap Metformin HCl (Glucophage) 500 mg PO BIDCC [facility] Last Admin: 11/23/18 17:40 Dose: 500 mg Mirtazapine (Remeron) 15 mg PO HS [facility] Last Admin: 11/23/18 21:26 Dose: 15 mg Multivitamins (Hexavitamin) 1 tab PO DAILY [facility] Last Admin: 11/23/18 10:21 Dose: 1 tab Nicotine (Nicoderm Cq) 1 patch TD DAILY [facility] Last Admin: 11/23/18 10:21 Dose: 1 patch Pantoprazole Sodium (Protonix Ec Tab) 40 mg PO DAILY [facility] Last Admin: 11/23/18 10:22 Dose: 40 mg Sertraline HCl (Zoloft) 25 mg PO DAILY [facility] Last Admin: 11/23/18 11:10 Dose: 25 mg Sodium Chloride ([place] Baby Saline 30 Ml) 1 ml RODNEY BID [facility] Last Admin: 11/23/18 17:43 Dose: 1 spr Thiamine HCl (Vitamin B1 Tab) 100 mg PO DAILY [facility] Last Admin: 11/23/18 10:22 Dose: 100 mg - Labs Labs: 11/24/18 00:46 11/23/18 07:30 PT 15.2 SECONDS (9.7-12.2) H 11/12/18 06:13 INR 1.4 11/12/18 06:13 APTT 29 SECONDS (21-34) 11/12/18 06:13 - Constitutional Appears: No Acute Distress, Cachectic - Head Exam Head Exam: ATRAUMATIC, NORMOCEPHALIC - Eye Exam Eye Exam: EOMI - ENT Exam ENT Exam: Mucous Membranes Moist - Respiratory Exam Respiratory Exam: Decreased Breath Sounds - Cardiovascular Exam Cardiovascular Exam: REGULAR RHYTHM, +S1, +S2 - GI/Abdominal Exam GI & Abdominal Exam: Soft Additional comments: PEG tube on left Upper quadrant, covered with dressing , c/d/i - Extremities Exam Extremities Exam: Full ROM - Back Exam Back Exam: NORMAL INSPECTION - Neurological Exam Neurological Exam: Alert, Awake, Oriented x3 - Psychiatric Exam Psychiatric exam: Depressed, Normal Affect - Skin Skin Exam: Dry, Normal Color, Warm Assessment and Plan - Assessment and Plan (Free Text) Plan: Sepsis Urinary tract infection Bacteremia Empyema * Code sepsis 11/08/18 * Infectious Disease (Dr. Bojorquez) on board-->help appreciated * Criteria: leukocytosis, hypotension, bandemia, hypothermia, source of infections: empyema, uti, bacteremia * Lactic acid: 3.5-->1.7 on 11/08/18 * elevated procalcitonin: 1.49-->0.83 on 11/11/18 * Blood culture (11/08/18): Klebsiella pneumoniae * Sensitive to Zosyn with LUPE of less than 4 * Repeat Blood culture (11/11/18): finalized as negative at 5 days * Urine culture (11/08/18): Enterococcus Faecalis * Repeat Urine Culture (11/15/18): NO growth * MRSA (11/08/18): not detected * Pleural fluid (11/09/18): no acid fast bacilli * Pleural fluid (11/09/18): Streptococcus anginosus which is sensitive to Vancomycin which the patient was restarted on 11/11/18 * Chest xray (11/08/18): layering left pleural effusion and/or consolidation * Chest xray (11/09/18): slight increase in left perihilar/basilar opacity. small left pleural effusion, grossly unchanged * Iv abx: * Zosyn 3.375 g IV Q6H (active since 11/08/18) * Vancomycin 1 gram IV Q12 (11/08/18 through 11/11/18): spoke with ID Dr. Bojorquez 11/12/18: Zosyn will cover the Klebsiella, Streptococcus and the Enterococcus * CT Chest 11/12/18: moderate left sided hydropneumothorax, moderate right pleural effusion, bilateral lower lobe consolidations, mediastinal lymphadenopathy, moderate hiatal hernia with gastric wall thickening Empyema; Loculated Left Pleural effusion * Thoracic Surgery (Dr. Bro) on board-->help appreciated * VATS procedure cancelled on 11/12/18 * Repeat CT Chest ordered 11/12/18 * Chest xray (11.08.18): layering left pleural effusion and/or consolidation * Chest xray (11/09/18): slight increase in left perihilar/basilar opacity. small left pleural effusion, grossly unchanged * S/P IR thoracentesis 11/09/18; placement of pigtail catheter * Pleural fluid (11/09/18): Streptococcus anginosus which is sensitive to Vancomycin which the patient was restarted on 11/11/18 * Pleural fluid (11/09/18): moderate PMNs, moderate gram positive cocci * Echocardiogram (08/20/18): left ventricular function is normal, left ventricular ejection fraction is within the the normal range about 55%, mild mitral valve regurgitation noted Anemia * Thoracic Surgery (Dr. Bro) on board-->help appreciated * GI (Dr. Aaron) on board-->help appreciated * Likely secondary to the suspicious mass found on EGD performed on 11/12/18? * On admission: hgb 10-->5 * blood transfusion consent obtained by resident 11/08/18 * given 3 units of PRBC overnight night and 1 FFP unit * rectal negative * ferritin low * iron low: will not repleat at this time considering multiple infections as documented in Assessment/Plan #1 * tibc: 148 low * transferrin low * Hgb 7.9 on 11/19/18 * Reticulocyte count: 2.2--> reticulocyte index: 0.12-->hypoproliferation <2 * Folate low * B12: 967 (low) * Occult blood: negative * CT Chest/Abdomen/pelvis (11/08/18): ascites, anasarca, interval loculated left pleural effusion, appearance of GE junction is indeterminate here a hiatal hernia vs mass * Hbg 6.9 11/23, received to [facility] * repeat CBC s/p blood transf - 9.8 * continue to monitor H/H Cirrhosis * GI (Dr. Aaron) on board-->help appreciated * CT Chest/Abdomen/pelvis IV contrast (11/08/18): prior amount of ascites and anasarca has improved. further findings per report * Abdominal US (08/18/18): limited study. echogenic liver may be seen in hepatic parenchymal disease or fatty infiltrate. nodular hepatic contour. cholelithiasis. gallbladder wall thickening/pericholecystic edema. negative sonographic Cespedes's small abdominal ascites * Hepatitis Panel negative * Blood alcohol <10 * Patient notes he has drinking 3 shots of vodka X 30 years. Diabetes mellitus 2 * Hgba1c: 8.1 * Patient is off metformin given elevated lactic on admission * RISS ACHS * Accuchecks QAC and HS GE junction Mass * Thoracic Surgery (Dr. Bro) on board-->help appreciated * GI (Dr. Aaron) on board-->help appreciated * CT Chest/Abdomen/pelvis (11/08/18): ascites, anasarca, interval loculated left pleural effusion, appearance of GE junction is indeterminate here a hiatal hernia vs mass * Patient is S/P Upper EGD on 11/12/18 and pathology from biopsy has confirmed Poorly Differentiated Squamous Cell CA * Heme/Oncologist Dr. Melody Paredes recommendation: outpatient PET Scan for staging and if NO mets then Chemo+Radiation and Surgical evaluation * Palliative Care Nurse Rosas is on board Alcohol use * Ciwa protocol * Aspiration precautions * Seizure precautions * Folic acid 1mg PO Daily * MVI tab PO daily * Thiamine 100mg PO daily * 3 shots of vodka X 30 years history * Monitor for withdrawal; patient is not currently in withdrawal * Abdominal US (08/18/18): limited study. Echogenic liver may be seen in hepatic parenchymal disease or fatty infiltrate. Nodular hepatic contour. cholelithiasis. Gallbladder wall thickening/pericholecystic edema. Negative sonographic Cespedes's small abdominal ascites Tobacco use * 1 ppd X30 years * Nicotine patch daily * Advised smoking cessation Cachexia * Related to alcohol, smoking, malnutrition, AND likely related to suspicious GE mass Ulcer of sacral region, stage 1 * Wound Care Nurse Joseph Amaya is on board: [place] and continue to turn patient every 2 hours * 11/23/18- erythema improved, no skin breakdown. Prophylactic measure * PT/OT eval * Protonix 40mg IV q12H * DNI/DNR * Lovenox 40mg subq daily- on hold * SCDs * Bilateral LE Venous Doppler 11/12/18: NO DVTs * Liquid diet + Jevity 1.5 tube feeds Disposition: As per ID, continue IV abx for total 14 days minimum (11/30/18). Plan for Sub[facility] Rehab ([facility]) however insurance is covered in [place]- f/u approval for [facility]. APS to be contacted by [facility] to evaluate patient's living conditions. Patient to have PET scan outpatient, if negative-> chemo and radiation followed by surgery consult. <Nestor Sebastian - Last Filed: 11/24/18 14:54> Objective - Vital Signs/Intake and Output Vital Signs (last 24 hours): Temp Pulse Resp BP Pulse Ox 98.4 F 85 20 133/77 97 11/24/18 07:00 11/24/18 07:00 11/24/18 07:00 11/24/18 14:39 11/24/18 07:00 Intake and Output: 11/24/18 11/24/18 06:59 18:59 Intake Total 325 700 Balance 325 700 - Medications Medications: Current Medications Acetaminophen (Tylenol 325mg Tab) 650 mg PO Q6 PRN PRN Reason: Fever >100.4 F Acetaminophen (Tylenol 325mg Tab) 650 mg PO ONCE PRN PRN Reason: blood transfusion Last Admin: 11/23/18 14:02 Dose: 650 mg Dextrose (Dextrose 50% Inj) 0 ml IV STAT PRN; Protocol PRN Reason: Hypoglycemia Protocol Dextrose (Glutose 15) 0 gm PO ONCE PRN; Protocol PRN Reason: Hypoglycemia Protocol Diphenhydramine HCl (Benadryl) 25 mg PO ONCE PRN PRN Reason: Blood transfusion Last Admin: 11/23/18 14:02 Dose: 25 mg Ferric Sodium Gluconate Complex (Ferrlecit) 125 mg IVPB DAILY [facility] Stop: 12/02/18 10:01 Last Admin: 11/24/18 09:17 Dose: 125 mg Fluconazole (Diflucan) 100 mg PEG DAILY [facility]; Protocol Stop: 12/05/18 10:00 Last Admin: 11/24/18 09:17 Dose: 100 mg Folic Acid (Folic Acid) 1 mg PO DAILY [facility] Last Admin: 11/24/18 09:17 Dose: 1 mg Glucagon (Glucagen Diagnostic Kit) 0 mg IM STAT PRN; Protocol PRN Reason: Hypoglycemia Protocol Piperacillin Sod/Tazobactam (Sod 3.375 gm/ Sodium Chloride) 100 mls @ 200 mls/hr IVPB Q6H [facility]; Protocol Last Admin: 11/24/18 13:39 Dose: 200 mls/hr Metronidazole (Flagyl) 500 mg in 100 mls @ 100 mls/hr IVPB Q8H [facility]; Protocol Last Admin: 11/24/18 13:38 Dose: 100 mls/hr Insulin Aspart (Novolog) 0 unit SC ACHS [facility]; Protocol Last Admin: 11/24/18 12:31 Dose: 3 units Lactobacillus Acidophilus (Lactobacillus) 1 cap PO Q12H [facility] Last Admin: 11/24/18 09:17 Dose: 1 cap Metformin HCl (Glucophage) 500 mg PO BIDCC [facility] Last Admin: 11/24/18 08:14 Dose: 500 mg Mirtazapine (Remeron) 15 mg PO HS [facility] Last Admin: 11/23/18 21:26 Dose: 15 mg Multivitamins (Hexavitamin) 1 tab PO DAILY [facility] Last Admin: 11/24/18 09:17 Dose: 1 tab Nicotine (Nicoderm Cq) 1 patch TD DAILY [facility] Last Admin: 11/24/18 09:21 Dose: 1 patch Pantoprazole Sodium (Protonix Ec Tab) 40 mg PO DAILY [facility] Last Admin: 11/24/18 09:17 Dose: 40 mg Sertraline HCl (Zoloft) 25 mg PO DAILY [facility] Last Admin: 11/24/18 11:10 Dose: 25 mg Sodium Chloride ([place] Baby Saline 30 Ml) 1 ml RODNEY BID [facility] Last Admin: 11/24/18 09:16 Dose: 1 spr Thiamine HCl (Vitamin B1 Tab) 100 mg PO DAILY [facility] Last Admin: 11/24/18 09:17 Dose: 100 mg - Labs Labs: 11/24/18 07:44 11/24/18 07:44 PT 15.2 SECONDS (9.7-12.2) H 11/12/18 06:13 INR 1.4 11/12/18 06:13 APTT 29 SECONDS (21-34) 11/12/18 06:13 Attending/Attestation - Attestation I have personally seen and examined this patient.: Yes I have fully participated in the care of the patient.: Yes I have reviewed all pertinent clinical information, including history, physical exam and plan: Yes Notes (Text): 11/24/18 14:52 Patient was seen and examined at 11:55 AM 11/24/18 Care of this patient was gone over with resident Dr. Alonso. Patient complained about stomach fullness and burping during the night after his last PEG Tube feeding. I have asked him that if this happens again during the night tonight, to let his nurse know so that PEG Tube residual can be measured at that time to see if there is excess formula being retained in the stomach. Awaiting placement in [facility] once issue with insurance is resolved. Nestor Sebastian D.O.
[2018-11-24] MEDS: metroNIDAZOLE IV 500 mg/100 ml 500 MG/100 ML BAG IVPB SCH ×3 (05:46→21:43)
[2018-11-24 07:58] LABS: BASO # 0.1 K/uL (0.0-0.2); BASO % 0.8 % (0.0-2.0); EOS # 0.5 K/uL (0.0-0.7); EOS % 4.5 % (0.0-4.0); HEMOGLOBIN 10.3 g/dL (12.0-18.0); LYMPH # 1.1 K/uL (1.0-4.3); LYMPH % 10.7 % (20.0-40.0); MEAN CELL VOLUME 82.7 fL (80.0-94.0); MEAN CORPUSCULAR HEMOGLOBIN 27.8 pg (27.0-31.0); MEAN CORPUSCULAR HGB CONC 33.6 g/dL (33.0-37.0); MEAN PLATELET VOLUME 8.9 fL (7.2-11.7); MONO % 9.6 % (0.0-10.0); NEUT # 7.8 K/uL (1.8-7.0); NEUT % 74.4 % (50.0-75.0); RBC 3.72 Mil/uL (4.40-5.90); RED CELL DISTRIBUTION WIDTH 18.3 % (11.5-14.5); WHITE BLOOD COUNT 10.5 K/uL (4.8-10.8)
[2018-11-24] MEDS: (Novolog) Insulin Aspart, Recombinant 100 u/ml 10 ml vial SC SCH ×4 (08:13→22:21)
[2018-11-24 08:16] LABS: ALB/GLOB RATIO 0.7 (1.0-2.1); ALBUMIN 2.5 g/dL (3.5-5.0); ALT/SGPT 7 U/L (21-72); AST/SGOT 11 U/L (17-59); BLOOD UREA NITROGEN 9 mg/dL (9-20); CALCIUM 10.3 mg/dl (8.6-10.4); GFR NON-AFRICAN AMERICAN > 60
[2018-11-24] MEDS: Sodium Chloride Nasal 0.65% Soln (30ml) NAS SCH ×3 (09:16→18:00)
[2018-11-24] MEDS: Multiple Vitamins Tab PO SCH (09:17)
[2018-11-24] MEDS: Ferric Sodium Gluconat Complex 62.5 mg/5 ml Vial IVPB SCH (09:17)
[2018-11-24] MEDS: Lactobacillus Acidophilus 500 MU Cap PO SCH ×2 (09:17→21:43)
[2018-11-24] MEDS: Pantoprazole 40 mg EC Tab PO SCH (09:17)
[2018-11-24] MEDS ORDERED: Magnesium Sulfate 1 gm in D5W 1 GM/100 ML BAG IVPB ONE (09:41)
[2018-11-24] MEDS ORDERED: Potassium Chloride 20 mEq/15 ml LIQ UD PO ONE (10:00)
--- NOTE | 2018-11-25 00:16 | CP.PCM.PN ---
<Arthur Alonso - Last Filed: 11/25/18 05:07> Subjective - Date & Time of Evaluation Date of Evaluation: 11/25/18 Time of Evaluation: 05:00 - Subjective Subjective: PGY-[address] Nestor Sebastian service Patient is seen and examined at bedside. State abdominal fullness has improved since liquid nutrition was changed to a different brand, continues to experience loose, watery bm, but states that has improved as well. Denies fever, chills, chest pain, sob, n/v, d/c or urinary symptoms. Objective - Vital Signs/Intake and Output Vital Signs (last 24 hours): Temp Pulse Resp BP Pulse Ox 98 F 69 18 134/71 97 11/24/18 15:00 11/24/18 15:00 11/24/18 15:00 11/24/18 15:00 11/24/18 15:00 Intake and Output: 11/24/18 11/25/18 18:59 06:59 Intake Total 700 Balance 700 - Medications Medications: Current Medications Acetaminophen (Tylenol 325mg Tab) 650 mg PO Q6 PRN PRN Reason: Fever >100.4 F Acetaminophen (Tylenol 325mg Tab) 650 mg PO ONCE PRN PRN Reason: blood transfusion Last Admin: 11/23/18 14:02 Dose: 650 mg Dextrose (Dextrose 50% Inj) 0 ml IV STAT PRN; Protocol PRN Reason: Hypoglycemia Protocol Dextrose (Glutose 15) 0 gm PO ONCE PRN; Protocol PRN Reason: Hypoglycemia Protocol Diphenhydramine HCl (Benadryl) 25 mg PO ONCE PRN PRN Reason: Blood transfusion Last Admin: 11/23/18 14:02 Dose: 25 mg Ferric Sodium Gluconate Complex (Ferrlecit) 125 mg IVPB DAILY [facility] Stop: 12/02/18 10:01 Last Admin: 11/24/18 09:17 Dose: 125 mg Fluconazole (Diflucan) 100 mg PEG DAILY [facility]; Protocol Stop: 12/05/18 10:00 Last Admin: 11/24/18 09:17 Dose: 100 mg Folic Acid (Folic Acid) 1 mg PO DAILY [facility] Last Admin: 11/24/18 09:17 Dose: 1 mg Glucagon (Glucagen Diagnostic Kit) 0 mg IM STAT PRN; Protocol PRN Reason: Hypoglycemia Protocol Piperacillin Sod/Tazobactam (Sod 3.375 gm/ Sodium Chloride) 100 mls @ 200 mls/hr IVPB Q6H [facility]; Protocol Last Admin: 11/24/18 21:01 Dose: 200 mls/hr Insulin Aspart (Novolog) 0 unit SC ACHS [facility]; Protocol Last Admin: 11/24/18 22:21 Dose: Not Given Lactobacillus Acidophilus (Lactobacillus) 1 cap PO Q12H [facility] Last Admin: 11/24/18 21:43 Dose: 1 cap Metformin HCl (Glucophage) 500 mg PO BIDCC [facility] Last Admin: 11/24/18 17:46 Dose: 500 mg Mirtazapine (Remeron) 15 mg PO HS [facility] Last Admin: 11/24/18 21:43 Dose: 15 mg Multivitamins (Hexavitamin) 1 tab PO DAILY [facility] Last Admin: 11/24/18 09:17 Dose: 1 tab Nicotine (Nicoderm Cq) 1 patch TD DAILY [facility] Last Admin: 11/24/18 09:21 Dose: 1 patch Pantoprazole Sodium (Protonix Ec Tab) 40 mg PO DAILY [facility] Last Admin: 11/24/18 09:17 Dose: 40 mg Sertraline HCl (Zoloft) 25 mg PO DAILY [facility] Last Admin: 11/24/18 11:10 Dose: 25 mg Sodium Chloride ([place] Baby Saline 30 Ml) 1 ml RODNEY BID [facility] Last Admin: 11/24/18 18:00 Dose: 1 spr Thiamine HCl (Vitamin B1 Tab) 100 mg PO DAILY [facility] Last Admin: 11/24/18 09:17 Dose: 100 mg - Labs Labs: 11/24/18 07:44 11/24/18 07:44 PT 15.2 SECONDS (9.7-12.2) H 11/12/18 06:13 INR 1.4 11/12/18 06:13 APTT 29 SECONDS (21-34) 11/12/18 06:13 - Constitutional Appears: Non-toxic, No Acute Distress, Cachectic, Chronically Ill - Head Exam Head Exam: ATRAUMATIC, NORMOCEPHALIC - Eye Exam Eye Exam: EOMI - ENT Exam ENT Exam: Mucous Membranes Moist, Normal Exam - Neck Exam Neck Exam: Full ROM, Normal Inspection - Respiratory Exam Respiratory Exam: Clear to Ausculation Bilateral - Cardiovascular Exam Cardiovascular Exam: REGULAR RHYTHM, +S1, +S2 - GI/Abdominal Exam GI & Abdominal Exam: Soft. absent: Distended, Tenderness Additional comments: PEG tube on left Upper quadrant, covered with dressing , c/d/i - Extremities Exam Extremities Exam: Full ROM, Normal Inspection. absent: Pedal Edema, Tenderness - Back Exam Back Exam: NORMAL INSPECTION - Neurological Exam Neurological Exam: Alert, Awake, Oriented x3 - Psychiatric Exam Psychiatric exam: Normal Affect, Normal Mood - Skin Skin Exam: Dry, Normal Color, Warm Assessment and Plan - Assessment and Plan (Free Text) Plan: Sepsis Urinary tract infection Bacteremia Empyema * Code sepsis 11/08/18 * Infectious Disease (Dr. Bojorquez) on board-->help appreciated * Criteria: leukocytosis, hypotension, bandemia, hypothermia, source of infections: empyema, uti, bacteremia * Lactic acid: 3.5-->1.7 on 11/08/18 * elevated procalcitonin: 1.49-->0.83 on 11/11/18 * Blood culture (11/08/18): Klebsiella pneumoniae * Sensitive to Zosyn with LUPE of less than 4 * Repeat Blood culture (11/11/18): finalized as negative at 5 days * Urine culture (11/08/18): Enterococcus Faecalis * Repeat Urine Culture (11/15/18): NO growth * MRSA (11/08/18): not detected * Pleural fluid (11/09/18): no acid fast bacilli * Pleural fluid (11/09/18): Streptococcus anginosus which is sensitive to Van comycin which the patient was restarted on 11/11/18 * Chest xray (11/08/18): layering left pleural effusion and/or consolidation * Chest xray (11/09/18): slight increase in left perihilar/basilar opacity. small left pleural effusion, grossly unchanged * Iv abx: * Zosyn 3.375 g IV Q6H (active since 11/08/18) * Vancomycin 1 gram IV Q12 (11/08/18 through 11/11/18): spoke with ID Dr. Bojorquez 11/12/18: Zosyn will cover the Klebsiella, Streptococcus and the Enterococcus * CT Chest 11/12/18: moderate left sided hydropneumothorax, moderate right pleural effusion, bilateral lower lobe consolidations, mediastinal lymphadenopathy, moderate hiatal hernia with gastric wall thickening Empyema; Loculated Left Pleural effusion * Thoracic Surgery (Dr. Bro) on board-->help appreciated * VATS procedure cancelled on 11/12/18 * Repeat CT Chest ordered 11/12/18 * Chest xray (11.08.18): layering left pleural effusion and/or consolidation * Chest xray (11/09/18): slight increase in left perihilar/basilar opacity. small left pleural effusion, grossly unchanged * S/P IR thoracentesis 11/09/18; placement of pigtail catheter * Pleural fluid (11/09/18): Streptococcus anginosus which is sensitive to Vancomycin which the patient was restarted on 11/11/18 * Pleural fluid (11/09/18): moderate PMNs, moderate gram positive cocci * Echocardiogram (08/20/18): left ventricular function is normal, left ventricular ejection fraction is within the the normal range about 55%, mild mitral valve regurgitation noted Anemia * Thoracic Surgery (Dr. Bro) on board-->help appreciated * GI (Dr. Aaron) on board-->help appreciated * Likely secondary to the suspicious mass found on EGD performed on 11/12/18? * On admission: hgb 10-->5 * blood transfusion consent obtained by resident 11/08/18 * given 3 units of PRBC overnight night and 1 FFP unit * rectal negative * ferritin low * iron low: will not repleat at this time considering multiple infections as documented in Assessment/Plan #1 * tibc: 148 low * transferrin low * Hgb 7.9 on 11/19/18 * Reticulocyte count: 2.2--> reticulocyte index: 0.12-->hypoproliferation <2 * Folate low * B12: 967 (low) * Occult blood: negative * CT Chest/Abdomen/pelvis (11/08/18): ascites, anasarca, interval loculated left pleural effusion, appearance of GE junction is indeterminate here a hiatal hernia vs mass * Hbg 6.9 11/23, received to PRBC * repeat CBC s/p blood transf - 9.8 * 11/24 hgb - 10.3 * continue to monitor H/H Cirrhosis * GI (Dr. Aaron) on board-->help appreciated * CT Chest/Abdomen/pelvis IV contrast (11/08/18): prior amount of ascites and anasarca has improved. further findings per report * Abdominal US (08/18/18): limited study. echogenic liver may be seen in hepatic parenchymal disease or fatty infiltrate. nodular hepatic contour. cholelithiasis. gallbladder wall thickening/pericholecystic edema. negative sonographic Cespedes's small abdominal ascites * Hepatitis Panel negative * Blood alcohol <10 * Patient notes he has drinking 3 shots of vodka X 30 years. Diabetes mellitus 2 * Hgba1c: 8.1 * Patient is off metformin given elevated lactic on admission * RISS ACHS * Accuchecks QAC and HS GE junction Mass * Thoracic Surgery (Dr. Bro) on board-->help appreciated * GI (Dr. Aaron) on board-->help appreciated * CT Chest/Abdomen/pelvis (11/08/18): ascites, anasarca, interval loculated left pleural effusion, appearance of GE junction is indeterminate here a hiatal hernia vs mass * Patient is S/P Upper EGD on 11/12/18 and pathology from biopsy has confirmed Poorly Differentiated Squamous Cell CA * Heme/Oncologist Dr. Melody Paredes recommendation: outpatient PET Scan for staging and if NO mets then Chemo+Radiation and Surgical evaluation * Palliative Care Nurse Rosas is on board Alcohol use * Ciwa protocol * Aspiration precautions * Seizure precautions * Folic acid 1mg PO Daily * MVI tab PO daily * Thiamine 100mg PO daily * 3 shots of vodka X 30 years history * Monitor for withdrawal; patient is not currently in withdrawal * Abdominal US (08/18/18): limited study. Echogenic liver may be seen in hepatic parenchymal disease or fatty infiltrate. Nodular hepatic contour. cholelithi asis. Gallbladder wall thickening/pericholecystic edema. Negative sonographic Cespedes's small abdominal ascites Tobacco use * 1 ppd X30 years * Nicotine patch daily * Advised smoking cessation Cachexia * Related to alcohol, smoking, malnutrition, AND likely related to suspicious GE mass Ulcer of sacral region, stage 1 * Wound Care Nurse Joseph Amaya is on board: [place] and continue to turn patient every 2 hours * 11/23/18- erythema improved, no skin breakdown. Prophylactic measure * PT/OT eval * Protonix 40mg IV q12H * DNI/DNR * Lovenox 40mg subq daily- on hold * SCDs * Bilateral LE Venous Doppler 11/12/18: NO DVTs * Liquid diet - ensure clear 2/day - apple flavor Disposition: As per ID, continue IV abx for total 14 days minimum (11/30/18). Plan for [facility] ([facility]) however insurance is covered in [place]- f/u approval for [facility]. APS to be contacted by [facility] to evaluate patient's living conditions. Patient to have PET scan outpatient, if negative-> chemo and radiation followed by surgery consult. <Nestor Sebastian - Last Filed: 11/25/18 17:10> Objective - Vital Signs/Intake and Output Vital Signs (last 24 hours): Temp Pulse Resp BP Pulse Ox 98.7 F 74 20 133/82 95 11/25/18 15:51 11/25/18 15:51 11/25/18 15:51 11/25/18 15:51 11/25/18 15:51 - Medications Medications: Current Medications Acetaminophen (Tylenol 325mg Tab) 650 mg PO Q6 PRN PRN Reason: Fever >100.4 F Acetaminophen (Tylenol 325mg Tab) 650 mg PO ONCE PRN PRN Reason: blood transfusion Last Admin: 11/23/18 14:02 Dose: 650 mg Dextrose (Dextrose 50% Inj) 0 ml IV STAT PRN; Protocol PRN Reason: Hypoglycemia Protocol Dextrose (Glutose 15) 0 gm PO ONCE PRN; Protocol PRN Reason: Hypoglycemia Protocol Diphenhydramine HCl (Benadryl) 25 mg PO ONCE PRN PRN Reason: Blood transfusion Last Admin: 11/23/18 14:02 Dose: 25 mg Ferric Sodium Gluconate Complex (Ferrlecit) 125 mg IVPB DAILY [facility] Stop: 12/02/18 10:01 Last Admin: 11/25/18 10:32 Dose: 125 mg Fluconazole (Diflucan) 100 mg PEG DAILY [facility]; Protocol Stop: 12/05/18 10:00 Last Admin: 11/25/18 10:59 Dose: 100 mg Folic Acid (Folic Acid) 1 mg PO DAILY [facility] Last Admin: 11/25/18 10:58 Dose: 1 mg Glucagon (Glucagen Diagnostic Kit) 0 mg IM STAT PRN; Protocol PRN Reason: Hypoglycemia Protocol Piperacillin Sod/Tazobactam (Sod 3.375 gm/ Sodium Chloride) 100 mls @ 200 mls/hr IVPB Q6H [facility]; Protocol Last Admin: 11/25/18 14:27 Dose: 200 mls/hr Insulin Aspart (Novolog) 0 unit SC ACHS [facility]; Protocol Last Admin: 11/25/18 12:30 Dose: 2 units Lactobacillus Acidophilus (Lactobacillus) 1 cap PO Q12H [facility] Last Admin: 11/25/18 10:33 Dose: 1 cap Metformin HCl (Glucophage) 500 mg PO BIDCC [facility] Last Admin: 11/25/18 08:59 Dose: 500 mg Mirtazapine (Remeron) 15 mg PO HS [facility] Last Admin: 11/24/18 21:43 Dose: 15 mg Multivitamins (Hexavitamin) 1 tab PO DAILY [facility] Last Admin: 11/25/18 10:35 Dose: 1 tab Nicotine (Nicoderm Cq) 1 patch TD DAILY [facility] Last Admin: 11/25/18 10:41 Dose: 1 patch Pantoprazole Sodium (Protonix Ec Tab) 40 mg PO DAILY [facility] Last Admin: 11/25/18 10:33 Dose: 40 mg Sertraline HCl (Zoloft) 25 mg PO DAILY [facility] Last Admin: 11/25/18 10:58 Dose: 25 mg Sodium Chloride ([place] Baby Saline 30 Ml) 1 ml RODNEY BID [facility] Last Admin: 11/25/18 10:37 Dose: 1 spr Thiamine HCl (Vitamin B1 Tab) 100 mg PO DAILY [facility] Last Admin: 11/25/18 10:33 Dose: 100 mg - Labs Labs: 11/25/18 07:28 11/25/18 07:28 PT 15.2 SECONDS (9.7-12.2) H 11/12/18 06:13 INR 1.4 11/12/18 06:13 APTT 29 SECONDS (21-34) 11/12/18 06:13 Attending/Attestation - Attestation I have personally seen and examined this patient.: Yes I have fully participated in the care of the patient.: Yes I have reviewed all pertinent clinical information, including history, physical exam and plan: Yes Notes (Text): 11/25/18 17:08 Patient was seen and examined at 8:45 AM 11/25/18 Care of this patient was gone over with resident Dr. Suyapa Alonso. Patient is no longer complaining of overnight abdominal discomfort overnight. He was instructed to make sure to notify his nurse should this occur again so that PEG Tube residual could be measured. Nestor Sebastian D.O.
[2018-11-25] MEDS: Piperacillin/Tazobact 3.375 GM in Sodium Chloride 100 ML IVPB SCH ×4 (01:35→21:13)
[2018-11-25 07:38] LABS: BASO # 0.1 K/uL (0.0-0.2); BASO % 0.8 % (0.0-2.0); EOS # 0.7 K/uL (0.0-0.7); EOS % 5.7 % (0.0-4.0); HEMOGLOBIN 10.3 g/dL (12.0-18.0); LYMPH # 1.4 K/uL (1.0-4.3); LYMPH % 11.5 % (20.0-40.0); MEAN PLATELET VOLUME 8.5 fL (7.2-11.7); MONO # 1.4 K/uL (0.0-0.8); MONO % 12.1 % (0.0-10.0); NEUT # 8.2 K/uL (1.8-7.0); NEUT % 69.9 % (50.0-75.0); RBC 3.8 Mil/uL (4.40-5.90); RED CELL DISTRIBUTION WIDTH 18.7 % (11.5-14.5); WHITE BLOOD COUNT 11.7 K/uL (4.8-10.8)
[2018-11-25 08:01] LABS: ALB/GLOB RATIO 0.7 (1.0-2.1); ALBUMIN 2.4 g/dL (3.5-5.0); ALT/SGPT 11 U/L (21-72); AST/SGOT 18 U/L (17-59); BLOOD UREA NITROGEN 9 mg/dL (9-20); CALCIUM 11.2 mg/dl (8.6-10.4); GFR NON-AFRICAN AMERICAN > 60
[2018-11-25] MEDS: (Novolog) Insulin Aspart, Recombinant 100 u/ml 10 ml vial SC SCH ×4 (08:30→21:43)
[2018-11-25] MEDS ORDERED: Potassium Chloride 20 mEq/15 ml LIQ UD PEG ONE (10:00)
[2018-11-25] MEDS: Ferric Sodium Gluconat Complex 62.5 mg/5 ml Vial IVPB SCH (10:32)
[2018-11-25] MEDS: Lactobacillus Acidophilus 500 MU Cap PO SCH ×2 (10:33→21:13)
[2018-11-25] MEDS: Pantoprazole 40 mg EC Tab PO SCH (10:33)
[2018-11-25] MEDS: Multiple Vitamins Tab PO SCH (10:35)
[2018-11-25] MEDS: Sodium Chloride Nasal 0.65% Soln (30ml) NAS SCH ×3 (10:37→18:20)
[2018-11-25] MEDS ORDERED: Potassium Chloride 20 mEq/15 ml LIQ UD PO ONE (14:00)
--- NOTE | 2018-11-25 20:18 | CP.PCM.PN ---
Subjective - Date & Time of Evaluation Date of Evaluation: 11/24/18 Time of Evaluation: 18:00 - Subjective Subjective: No complaints. Objective - Vital Signs/Intake and Output Vital Signs (last 24 hours): Temp Pulse Resp BP Pulse Ox 98.7 F 74 20 133/82 95 11/25/18 15:51 11/25/18 15:51 11/25/18 15:51 11/25/18 15:51 11/25/18 15:51 - Medications Medications: Current Medications Acetaminophen (Tylenol 325mg Tab) 650 mg PO Q6 PRN PRN Reason: Fever >100.4 F Acetaminophen (Tylenol 325mg Tab) 650 mg PO ONCE PRN PRN Reason: blood transfusion Last Admin: 11/23/18 14:02 Dose: 650 mg Dextrose (Dextrose 50% Inj) 0 ml IV STAT PRN; Protocol PRN Reason: Hypoglycemia Protocol Dextrose (Glutose 15) 0 gm PO ONCE PRN; Protocol PRN Reason: Hypoglycemia Protocol Diphenhydramine HCl (Benadryl) 25 mg PO ONCE PRN PRN Reason: Blood transfusion Last Admin: 11/23/18 14:02 Dose: 25 mg Ferric Sodium Gluconate Complex (Ferrlecit) 125 mg IVPB DAILY [facility] Stop: 12/02/18 10:01 Last Admin: 11/25/18 10:32 Dose: 125 mg Fluconazole (Diflucan) 100 mg PEG DAILY [facility]; Protocol Stop: 12/05/18 10:00 Last Admin: 11/25/18 10:59 Dose: 100 mg Folic Acid (Folic Acid) 1 mg PO DAILY [facility] Last Admin: 11/25/18 10:58 Dose: 1 mg Glucagon (Glucagen Diagnostic Kit) 0 mg IM STAT PRN; Protocol PRN Reason: Hypoglycemia Protocol Piperacillin Sod/Tazobactam (Sod 3.375 gm/ Sodium Chloride) 100 mls @ 200 mls/hr IVPB Q6H [facility]; Protocol Last Admin: 11/25/18 14:27 Dose: 200 mls/hr Insulin Aspart (Novolog) 0 unit SC ACHS [facility]; Protocol Last Admin: 11/25/18 17:00 Dose: 3 units Lactobacillus Acidophilus (Lactobacillus) 1 cap PO Q12H [facility] Last Admin: 11/25/18 10:33 Dose: 1 cap Metformin HCl (Glucophage) 500 mg PO BIDCC [facility] Last Admin: 11/25/18 18:00 Dose: 500 mg Mirtazapine (Remeron) 15 mg PO HS [facility] Last Admin: 11/24/18 21:43 Dose: 15 mg Multivitamins (Hexavitamin) 1 tab PO DAILY [facility] Last Admin: 11/25/18 10:35 Dose: 1 tab Nicotine (Nicoderm Cq) 1 patch TD DAILY [facility] Last Admin: 11/25/18 10:41 Dose: 1 patch Pantoprazole Sodium (Protonix Ec Tab) 40 mg PO DAILY [facility] Last Admin: 11/25/18 10:33 Dose: 40 mg Sertraline HCl (Zoloft) 25 mg PO DAILY [facility] Last Admin: 11/25/18 10:58 Dose: 25 mg Sodium Chloride ([place] Baby Saline 30 Ml) 1 ml RODNEY BID [facility] Last Admin: 11/25/18 18:20 Dose: 1 spr Thiamine HCl (Vitamin B1 Tab) 100 mg PO DAILY [facility] Last Admin: 11/25/18 10:33 Dose: 100 mg - Labs Labs: 11/25/18 07:28 11/25/18 07:28 PT 15.2 SECONDS (9.7-12.2) H 11/12/18 06:13 INR 1.4 11/12/18 06:13 APTT 29 SECONDS (21-34) 11/12/18 06:13 - Head Exam Head Exam: ATRAUMATIC - Eye Exam Eye Exam: Normal appearance - ENT Exam ENT Exam: Mucous Membranes Dry - Respiratory Exam Respiratory Exam: NORMAL BREATHING PATTERN - Cardiovascular Exam Cardiovascular Exam: +S1, +S2 - GI/Abdominal Exam GI & Abdominal Exam: Normal Bowel Sounds Assessment and Plan (1) Anemia Assessment & Plan: iron deficiency 2U PRBC today on IV iron Status: Acute (2) Esophageal mass Assessment & Plan: outpatient PET CT scan for staging outpatient treatment Status: Acute
--- NOTE | 2018-11-25 20:19 | CP.PCM.PN ---
Subjective - Date & Time of Evaluation Date of Evaluation: 11/25/18 Time of Evaluation: 17:00 - Subjective Subjective: No complaints. Objective - Vital Signs/Intake and Output Vital Signs (last 24 hours): Temp Pulse Resp BP Pulse Ox 98.7 F 74 20 133/82 95 11/25/18 15:51 11/25/18 15:51 11/25/18 15:51 11/25/18 15:51 11/25/18 15:51 - Medications Medications: Current Medications Acetaminophen (Tylenol 325mg Tab) 650 mg PO Q6 PRN PRN Reason: Fever >100.4 F Acetaminophen (Tylenol 325mg Tab) 650 mg PO ONCE PRN PRN Reason: blood transfusion Last Admin: 11/23/18 14:02 Dose: 650 mg Dextrose (Dextrose 50% Inj) 0 ml IV STAT PRN; Protocol PRN Reason: Hypoglycemia Protocol Dextrose (Glutose 15) 0 gm PO ONCE PRN; Protocol PRN Reason: Hypoglycemia Protocol Diphenhydramine HCl (Benadryl) 25 mg PO ONCE PRN PRN Reason: Blood transfusion Last Admin: 11/23/18 14:02 Dose: 25 mg Ferric Sodium Gluconate Complex (Ferrlecit) 125 mg IVPB DAILY [facility] Stop: 12/02/18 10:01 Last Admin: 11/25/18 10:32 Dose: 125 mg Fluconazole (Diflucan) 100 mg PEG DAILY [facility]; Protocol Stop: 12/05/18 10:00 Last Admin: 11/25/18 10:59 Dose: 100 mg Folic Acid (Folic Acid) 1 mg PO DAILY [facility] Last Admin: 11/25/18 10:58 Dose: 1 mg Glucagon (Glucagen Diagnostic Kit) 0 mg IM STAT PRN; Protocol PRN Reason: Hypoglycemia Protocol Piperacillin Sod/Tazobactam (Sod 3.375 gm/ Sodium Chloride) 100 mls @ 200 mls/hr IVPB Q6H [facility]; Protocol Last Admin: 11/25/18 14:27 Dose: 200 mls/hr Insulin Aspart (Novolog) 0 unit SC ACHS [facility]; Protocol Last Admin: 11/25/18 17:00 Dose: 3 units Lactobacillus Acidophilus (Lactobacillus) 1 cap PO Q12H [facility] Last Admin: 11/25/18 10:33 Dose: 1 cap Metformin HCl (Glucophage) 500 mg PO BIDCC [facility] Last Admin: 11/25/18 18:00 Dose: 500 mg Mirtazapine (Remeron) 15 mg PO HS [facility] Last Admin: 11/24/18 21:43 Dose: 15 mg Multivitamins (Hexavitamin) 1 tab PO DAILY [facility] Last Admin: 11/25/18 10:35 Dose: 1 tab Nicotine (Nicoderm Cq) 1 patch TD DAILY [facility] Last Admin: 11/25/18 10:41 Dose: 1 patch Pantoprazole Sodium (Protonix Ec Tab) 40 mg PO DAILY [facility] Last Admin: 11/25/18 10:33 Dose: 40 mg Sertraline HCl (Zoloft) 25 mg PO DAILY [facility] Last Admin: 11/25/18 10:58 Dose: 25 mg Sodium Chloride ([place] Baby Saline 30 Ml) 1 ml RODNEY BID [facility] Last Admin: 11/25/18 18:20 Dose: 1 spr Thiamine HCl (Vitamin B1 Tab) 100 mg PO DAILY [facility] Last Admin: 11/25/18 10:33 Dose: 100 mg - Labs Labs: 11/25/18 07:28 11/25/18 07:28 PT 15.2 SECONDS (9.7-12.2) H 11/12/18 06:13 INR 1.4 11/12/18 06:13 APTT 29 SECONDS (21-34) 11/12/18 06:13 - Head Exam Head Exam: ATRAUMATIC - Eye Exam Eye Exam: Normal appearance - ENT Exam ENT Exam: Mucous Membranes Dry - Respiratory Exam Respiratory Exam: NORMAL BREATHING PATTERN - Cardiovascular Exam Cardiovascular Exam: +S1, +S2 - GI/Abdominal Exam GI & Abdominal Exam: Normal Bowel Sounds Assessment and Plan (1) Anemia Assessment & Plan: iron deficiency s/p PRBC transfusion on IV iron Status: Acute (2) Esophageal mass Assessment & Plan: outpatient PET CT scan for staging outpatient treatment Status: Acute
[2018-11-26] MEDS: Piperacillin/Tazobact 3.375 GM in Sodium Chloride 100 ML IVPB SCH ×4 (03:08→21:30)
[2018-11-26 08:09] LABS: BASO # 0.1 K/uL (0.0-0.2); BASO % 0.8 % (0.0-2.0); EOS # 0.7 K/uL (0.0-0.7); EOS % 6.4 % (0.0-4.0); HEMOGLOBIN 10.3 g/dL (12.0-18.0); LYMPH # 1.2 K/uL (1.0-4.3); LYMPH % 11.7 % (20.0-40.0); MEAN CELL VOLUME 82.8 fL (80.0-94.0); MEAN CORPUSCULAR HEMOGLOBIN 27.1 pg (27.0-31.0); MEAN CORPUSCULAR HGB CONC 32.8 g/dL (33.0-37.0); MEAN PLATELET VOLUME 8.6 fL (7.2-11.7); MONO # 1.4 K/uL (0.0-0.8); MONO % 13.7 % (0.0-10.0); NEUT # 6.9 K/uL (1.8-7.0); NEUT % 67.4 % (50.0-75.0); NRBC % 0.1 % (0.0-2.0); RBC 3.8 Mil/uL (4.40-5.90); RED CELL DISTRIBUTION WIDTH 18.4 % (11.5-14.5); WHITE BLOOD COUNT 10.2 K/uL (4.8-10.8)
[2018-11-26 08:23] LABS: ALB/GLOB RATIO 0.7 (1.0-2.1); ALBUMIN 2.5 g/dL (3.5-5.0); ALT/SGPT 7 U/L (21-72); AST/SGOT 16 U/L (17-59); BLOOD UREA NITROGEN 9 mg/dL (9-20); CALCIUM 11.7 mg/dl (8.6-10.4); GFR NON-AFRICAN AMERICAN > 60
--- NOTE | 2018-11-26 08:44 | CP.PCM.PN ---
<Barnett,Berenice P - Last Filed: 11/26/18 15:02> Subjective - Date & Time of Evaluation Date of Evaluation: 11/26/18 Time of Evaluation: 07:00 - Subjective Subjective: Progress note for Dr Osorio. Patient is seen and examined at bedside. Continues with some soft stool, but states that has improved. States he is very tired. Denies fever, chills, chest pain, sob, n/v, d/c or urinary symptoms. Objective - Vital Signs/Intake and Output Vital Signs (last 24 hours): Temp Pulse Resp BP Pulse Ox 98.4 F 81 18 140/84 96 11/26/18 07:12 11/26/18 07:12 11/26/18 07:12 11/26/18 07:12 11/26/18 07:12 Intake and Output: 11/26/18 11/26/18 06:59 18:59 Output Total 500 Balance -500 - Medications Medications: Current Medications Acetaminophen (Tylenol 325mg Tab) 650 mg PO Q6 PRN PRN Reason: Fever >100.4 F Acetaminophen (Tylenol 325mg Tab) 650 mg PO ONCE PRN PRN Reason: blood transfusion Last Admin: 11/23/18 14:02 Dose: 650 mg Dextrose (Dextrose 50% Inj) 0 ml IV STAT PRN; Protocol PRN Reason: Hypoglycemia Protocol Dextrose (Glutose 15) 0 gm PO ONCE PRN; Protocol PRN Reason: Hypoglycemia Protocol Diphenhydramine HCl (Benadryl) 25 mg PO ONCE PRN PRN Reason: Blood transfusion Last Admin: 11/23/18 14:02 Dose: 25 mg Ferric Sodium Gluconate Complex (Ferrlecit) 125 mg IVPB DAILY [facility] Stop: 12/02/18 10:01 Last Admin: 11/25/18 10:32 Dose: 125 mg Fluconazole (Diflucan) 100 mg PEG DAILY [facility]; Protocol Stop: 12/05/18 10:00 Last Admin: 11/25/18 10:59 Dose: 100 mg Folic Acid (Folic Acid) 1 mg PO DAILY [facility] Last Admin: 11/25/18 10:58 Dose: 1 mg Glucagon (Glucagen Diagnostic Kit) 0 mg IM STAT PRN; Protocol PRN Reason: Hypoglycemia Protocol Piperacillin Sod/Tazobactam (Sod 3.375 gm/ Sodium Chloride) 100 mls @ 200 mls/hr IVPB Q6H [facility]; Protocol Last Admin: 11/26/18 03:08 Dose: 200 mls/hr Insulin Aspart (Novolog) 0 unit SC ACHS [facility]; Protocol Last Admin: 11/25/18 21:43 Dose: Not Given Lactobacillus Acidophilus (Lactobacillus) 1 cap PO Q12H [facility] Last Admin: 11/25/18 21:13 Dose: 1 cap Metformin HCl (Glucophage) 500 mg PO BIDCC [facility] Last Admin: 11/25/18 18:00 Dose: 500 mg Mirtazapine (Remeron) 15 mg PO HS [facility] Last Admin: 11/25/18 21:13 Dose: 15 mg Multivitamins (Hexavitamin) 1 tab PO DAILY [facility] Last Admin: 11/25/18 10:35 Dose: 1 tab Nicotine (Nicoderm Cq) 1 patch TD DAILY [facility] Last Admin: 11/25/18 10:41 Dose: 1 patch Pantoprazole Sodium (Protonix Ec Tab) 40 mg PO DAILY [facility] Last Admin: 11/25/18 10:33 Dose: 40 mg Sertraline HCl (Zoloft) 25 mg PO DAILY [facility] Last Admin: 11/25/18 10:58 Dose: 25 mg Sodium Chloride ([place] Baby Saline 30 Ml) 1 ml RODNEY BID [facility] Last Admin: 11/25/18 18:20 Dose: 1 spr Thiamine HCl (Vitamin B1 Tab) 100 mg PO DAILY [facility] Last Admin: 11/25/18 10:33 Dose: 100 mg - Labs Labs: 11/26/18 07:53 11/26/18 07:53 PT 15.2 SECONDS (9.7-12.2) H 11/12/18 06:13 INR 1.4 11/12/18 06:13 APTT 29 SECONDS (21-34) 11/12/18 06:13 - Additional Findings Additional findings: - Constitutional Appears: No Acute Distress, cachectic - Head Exam Head Exam: ATRAUMATIC, NORMOCEPHALIC - Eye Exam Eye Exam: EOMI, Normal appearance, PERRL - ENT Exam ENT Exam: Mucous Membranes Moist - Neck Exam Neck Exam: Full ROM, Normal Inspection - Respiratory Exam Respiratory Exam: Decreased Breath Sounds (diffusely) - Cardiovascular Exam Cardiovascular Exam: REGULAR RHYTHM, +S1, +S2 - GI/Abdominal Exam GI & Abdominal Exam: Soft. absent: Distended, Firm, Guarding, Rigid, Tenderness Additional comments: PEG tube in place, area clean and dry without signs of infection - Extremities Exam Extremities Exam: Calf Tenderness, Full ROM, Picc line RUE. absent: Pedal Edema, Tenderness - Neurological Exam Neurological Exam: Alert, Awake, Oriented x3 - Psychiatric Exam Psychiatric exam: Normal Affect - Skin Skin Exam: Dry, Intact, Pallor, Warm. Erythema to sacral area improved, no skin breakdown. Assessment and Plan - Assessment and Plan (Free Text) Plan: Sepsis Urinary tract infection Bacteremia Empyema * Code sepsis 11/08/18 * Infectious Disease (Dr. Bojorquez) on board-->help appreciated * Criteria: leukocytosis, hypotension, bandemia, hypothermia, source of infections: empyema, uti, bacteremia * Lactic acid: 3.5-->1.7 on 11/08/18 * elevated procalcitonin: 1.49-->0.83 on 11/11/18 * Blood culture (11/08/18): Klebsiella pneumoniae * Sensitive to Zosyn with LUPE of less than 4 * Repeat Blood culture (11/11/18): finalized as negative at 5 days * Urine culture (11/08/18): Enterococcus Faecalis * Repeat Urine Culture (11/15/18): NO growth * MRSA (11/08/18): not detected * Pleural fluid (11/09/18): no acid fast bacilli * Pleural fluid (11/09/18): Streptococcus anginosus which is sensitive to Vancomycin which the patient was restarted on 11/11/18 * Chest xray (11/08/18): layering left pleural effusion and/or consolidation * Chest xray (11/09/18): slight increase in left perihilar/basilar opacity. small left pleural effusion, grossly unchanged * Iv abx: * Zosyn 3.375 g IV Q6H (active since 11/08/18) * Vancomycin 1 gram IV Q12 (11/08/18 through 11/11/18): spoke with ID Dr. Bojorquez 11/12/18: Zosyn will cover the Klebsiella, Streptococcus and the Enterococcus * CT Chest 11/12/18: moderate left sided hydropneumothorax, moderate right pleural effusion, bilateral lower lobe consolidations, mediastinal lymphadenopathy, moderate hiatal hernia with gastric wall thickening Empyema; Loculated Left Pleural effusion * Thoracic Surgery (Dr. Bro) on board-->help appreciated * VATS procedure cancelled on 11/12/18 * Repeat CT Chest ordered 11/12/18 * Chest xray (11.08.18): layering left pleural effusion and/or consolidation * Chest xray (11/09/18): slight increase in left perihilar/basilar opacity. small left pleural effusion, grossly unchanged * S/P IR thoracentesis 11/09/18; placement of pigtail catheter * Pleural fluid (11/09/18): Streptococcus anginosus which is sensitive to Vancomycin which the patient was restarted on 11/11/18 * Pleural fluid (11/09/18): moderate PMNs, moderate gram positive cocci * Echocardiogram (08/20/18): left ventricular function is normal, left ventricular ejection fraction is within the the normal range about 55%, mild mitral valve regurgitation noted Anemia * Thoracic Surgery (Dr. Bro) on board-->help appreciated * GI (Dr. Aaron) on board-->help appreciated * Likely secondary to the suspicious mass found on EGD performed on 11/12/18? * On admission: hgb 10-->5 * blood transfusion consent obtained by resident 11/08/18 * given 3 units of PRBC overnight night and 1 FFP unit * rectal negative * ferritin low * iron low: will not repleat at this time considering multiple infections as documented in Assessment/Plan #1 * tibc: 148 low * transferrin low * Hgb 7.9 on 11/19/18 * Reticulocyte count: 2.2--> reticulocyte index: 0.12-->hypoproliferation <2 * Folate low * B12: 967 (low) * Occult blood: negative * CT Chest/Abdomen/pelvis (11/08/18): ascites, anasarca, interval loculated left pleural effusion, appearance of GE junction is indeterminate here a hiatal hernia vs mass * Hbg 6.9 11/23, received to PR[facility] * repeat CBC s/p blood transf - 9.8 * 11/24 hgb - 10.3 * continue to monitor H/H Cirrhosis * GI (Dr. Aaron) on board-->help appreciated * CT Chest/Abdomen/pelvis IV contrast (11/08/18): prior amount of ascites and anasarca has improved. further findings per report * Abdominal US (08/18/18): limited study. echogenic liver may be seen in hepatic parenchymal disease or fatty infiltrate. nodular hepatic contour. cholelithiasis. gallbladder wall thickening/pericholecystic edema. negative sonographic Cespedes's small abdominal ascites * Hepatitis Panel negative * Blood alcohol <10 * Patient notes he has drinking 3 shots of vodka X 30 years. Diabetes mellitus 2 * Hgba1c: 8.1 * Patient is off metformin given elevated lactic on admission * RISS ACHS * Accuchecks QAC and HS GE junction Mass * Thoracic Surgery (Dr. Bro) on board-->help appreciated * GI (Dr. Aaron) on board-->help appreciated * CT Chest/Abdomen/pelvis (11/08/18): ascites, anasarca, interval loculated left pleural effusion, appearance of GE junction is indeterminate here a hiatal hernia vs mass * Patient is S/P Upper EGD on 11/12/18 and pathology from biopsy has confirmed Poorly Differentiated Squamous Cell CA * Heme/Oncologist Dr. Melody Paredes recommendation: outpatient PET Scan for staging and if NO mets then Chemo+Radiation and Surgical evaluation * Palliative Care Nurse Rosas is on board Alcohol use * Ciwa protocol * Aspiration precautions * Seizure precautions * Folic acid 1mg PO Daily * MVI tab PO daily * Thiamine 100mg PO daily * 3 shots of vodka X 30 years history * Monitor for withdrawal; patient is not currently in withdrawal * Abdominal US (08/18/18): limited study. Echogenic liver may be seen in hepatic parenchymal disease or fatty infiltrate. Nodular hepatic contour. cholelithiasis. Gallbladder wall thickening/pericholecystic edema. Negative sonographic Cespedes's small abdominal ascites Tobacco use * 1 ppd X30 years * Nicotine patch daily * Advised smoking cessation Cachexia * Related to alcohol, smoking, malnutrition, AND likely related to suspicious GE mass Ulcer of sacral region, stage 1 * Wound Care Nurse Joseph Amaya is on board: Charlene Clare and continue to turn patient every 2 hours * 11/23/18- erythema improved, no skin breakdown. Prophylactic measure * PT/OT eval * Protonix 40mg IV q12H * DNI/DNR * Lovenox 40mg subq daily- on hold * SCDs * Bilateral LE Venous Doppler 11/12/18: NO DVTs * Liquid diet - ensure clear 2/day - apple flavor Disposition: As per ID, continue IV abx for total 14 days minimum (12/02/18). Plan for Subacute Rehab ([facility]) however insurance is covered in [place]- f/u approval for [place] [facility]. APS to be contacted by [facility] to evaluate patient's living conditions. Pat ient to have PET scan outpatient, if negative-> chemo and radiation followed by surgery consult. <Georgette Osorio V - Last Filed: 11/26/18 17:52> Objective - Vital Signs/Intake and Output Vital Signs (last 24 hours): Temp Pulse Resp BP Pulse Ox 98.4 F 81 18 140/84 96 11/26/18 07:12 11/26/18 07:12 11/26/18 07:12 11/26/18 07:12 11/26/18 07:12 Intake and Output: 11/26/18 11/26/18 06:59 18:59 Output Total 500 Balance -500 - Medications Medications: Current Medications Acetaminophen (Tylenol 325mg Tab) 650 mg PO Q6 PRN PRN Reason: Fever >100.4 F Acetaminophen (Tylenol 325mg Tab) 650 mg PO ONCE PRN PRN Reason: blood transfusion Last Admin: 11/23/18 14:02 Dose: 650 mg Dextrose (Dextrose 50% Inj) 0 ml IV STAT PRN; Protocol PRN Reason: Hypoglycemia Protocol Dextrose (Glutose 15) 0 gm PO ONCE PRN; Protocol PRN Reason: Hypoglycemia Protocol Diphenhydramine HCl (Benadryl) 25 mg PO ONCE PRN PRN Reason: Blood transfusion Last Admin: 11/23/18 14:02 Dose: 25 mg Ferric Sodium Gluconate Complex (Ferrlecit) 125 mg IVPB DAILY [facility] Stop: 12/02/18 10:01 Last Admin: 11/26/18 09:37 Dose: 125 mg Fluconazole (Diflucan) 100 mg PEG DAILY [facility]; Protocol Stop: 12/05/18 10:00 Last Admin: 11/26/18 09:38 Dose: 100 mg Folic Acid (Folic Acid) 1 mg PO DAILY [facility] Last Admin: 11/26/18 09:37 Dose: 1 mg Glucagon (Glucagen Diagnostic Kit) 0 mg IM STAT PRN; Protocol PRN Reason: Hypoglycemia Protocol Piperacillin Sod/Tazobactam (Sod 3.375 gm/ Sodium Chloride) 100 mls @ 200 mls/hr IVPB Q6H [facility]; Protocol Last Admin: 11/26/18 14:34 Dose: 200 mls/hr Insulin Aspart (Novolog) 0 unit SC ACHS [facility]; Protocol Last Admin: 11/26/18 12:34 Dose: 5 units Lactobacillus Acidophilus (Lactobacillus) 1 cap PO Q12H [facility] Last Admin: 11/26/18 09:37 Dose: 1 cap Metformin HCl (Glucophage) 500 mg PO BIDCC [facility] Last Admin: 11/26/18 08:51 Dose: 500 mg Mirtazapine (Remeron) 15 mg PO HS [facility] Last Admin: 11/25/18 21:13 Dose: 15 mg Multivitamins (Hexavitamin) 1 tab PO DAILY [facility] Last Admin: 11/26/18 09:38 Dose: 1 tab Nicotine (Nicoderm Cq) 1 patch TD DAILY [facility] Last Admin: 11/26/18 09:37 Dose: 1 patch Pantoprazole Sodium (Protonix Ec Tab) 40 mg PO DAILY [facility] Last Admin: 11/26/18 09:38 Dose: 40 mg Sertraline HCl (Zoloft) 25 mg PO DAILY [facility] Last Admin: 11/26/18 09:44 Dose: 25 mg Sodium Chloride ([place] Baby Saline 30 Ml) 1 ml RODNEY BID [facility] Last Admin: 11/26/18 10:00 Dose: 1 spr Thiamine HCl (Vitamin B1 Tab) 100 mg PO DAILY [facility] Last Admin: 11/26/18 09:38 Dose: 100 mg - Labs Labs: 11/26/18 07:53 11/26/18 07:53 PT 15.2 SECONDS (9.7-12.2) H 11/12/18 06:13 INR 1.4 11/12/18 06:13 APTT 29 SECONDS (21-34) 11/12/18 06:13 Assessment and Plan (1) Sepsis Status: Acute (2) Pleural effusion Status: Acute (3) Anemia Status: Acute (4) Cirrhosis Status: Acute (5) Diabetes mellitus Status: Acute (6) Abnormal CT scan, chest Status: Acute (7) Alcohol use Status: Acute (8) Tobacco use Status: Acute (9) Cachexia Status: Acute (10) Ulcer of sacral region, stage 1 Status: Acute (11) Prophylactic measure Status: Acute Attending/Attestation - Attestation I have personally seen and examined this patient.: Yes I have fully participated in the care of the patient.: Yes I have reviewed all pertinent clinical information, including history, physical exam and plan: Yes Notes (Text): Patient seen, examined and case discussed with ophthalmic medical technician. Patient seen this morning. Patient reports he sat in chair yesterday. He is encouraged to sit in chair today. Patient reports the stool is less diarrhea and more formed; and notes when he takes in his supplements the stool quality is improved. Reviewed GI notes, patient recommended for clear liquid given risk for aspiration and protein supplements. patient noted he had require blood transfusion recently ordered by heme- oncology. Patient continues to be on IV abx for bacteremia, empyema, and urinary tract infection until 12/02/18 and he has a PICC. Patient is medically stable for discharge; the issue remains with his insurance approving for the rehab. Case management and social work are on the case since he was intended for discharge early last week. however, his insurance is [employer] in [place] though he lives in [place]. Patient is involved to help in whatever manner he can. Patient will benefit from subacute rehab given he is physically deconditioned from his infections and newly diagnosed squamous cell carcinoma noted in pathology from endoscopy. Patient cannot go home; it will be unsafe discharge. Patient will need outpatient PET scan and follow-up with heme-oncology. We will next take bloodwork from the patient on Monday. We will also speak with psychiatry to see if we need to titrate the dose of antidepressant; patient is aware he will need at least 2 months for it to work.
[2018-11-26] MEDS: (Novolog) Insulin Aspart, Recombinant 100 u/ml 10 ml vial SC SCH ×4 (08:51→21:58)
[2018-11-26] MEDS: Lactobacillus Acidophilus 500 MU Cap PO SCH ×2 (09:37→21:33)
[2018-11-26] MEDS: Ferric Sodium Gluconat Complex 62.5 mg/5 ml Vial IVPB SCH (09:37)
[2018-11-26] MEDS: Pantoprazole 40 mg EC Tab PO SCH (09:38)
[2018-11-26] MEDS: Multiple Vitamins Tab PO SCH (09:38)
[2018-11-26] MEDS: Sodium Chloride Nasal 0.65% Soln (30ml) NAS SCH ×2 (10:00→17:46)
[2018-11-27] MEDS: Piperacillin/Tazobact 3.375 GM in Sodium Chloride 100 ML IVPB SCH ×4 (02:06→20:59)
[2018-11-27] MEDS: (Novolog) Insulin Aspart, Recombinant 100 u/ml 10 ml vial SC SCH ×4 (08:30→22:46)
[2018-11-27] MEDS: Ferric Sodium Gluconat Complex 62.5 mg/5 ml Vial IVPB SCH (09:00)
[2018-11-27] MEDS: Pantoprazole 40 mg EC Tab PO SCH (09:01)
[2018-11-27] MEDS: Lactobacillus Acidophilus 500 MU Cap PO SCH ×2 (09:01→21:03)
[2018-11-27] MEDS: Multiple Vitamins Tab PO SCH (09:02)
[2018-11-27] MEDS: Sodium Chloride Nasal 0.65% Soln (30ml) NAS SCH ×2 (09:02→17:47)
--- NOTE | 2018-11-27 10:31 | CP.PCM.PN ---
<Arthur Alonso - Last Filed: 11/27/18 17:12> Subjective - Date & Time of Evaluation Date of Evaluation: 11/27/18 Time of Evaluation: 08:00 - Subjective Subjective: PGY-[address] Osorio service Patient is seen and examined at bedside. Patient reports no acute events overnight. Patient reports having loose bowel movement, not watery, with Jevity supplement, patient has been sitting to chair however states feeling lightheaded, admits to upper back pain and indigestioon after feedings, Patient admits to continue have symptoms of depression, such as patient can't sleep at nights. Denies fever, chills, chest pain, sob abdominal pain, n/v or urinary symptoms. Objective - Vital Signs/Intake and Output Vital Signs (last 24 hours): Temp Pulse Resp BP Pulse Ox 98.1 F 74 20 144/83 98 11/27/18 07:25 11/27/18 07:25 11/27/18 07:25 11/27/18 07:25 11/27/18 07:25 Intake and Output: 11/27/18 11/27/18 06:59 18:59 Output Total 700 Balance -700 - Medications Medications: Current Medications Acetaminophen (Tylenol 325mg Tab) 650 mg PO Q6 PRN PRN Reason: Fever >100.4 F Acetaminophen (Tylenol 325mg Tab) 650 mg PO ONCE PRN PRN Reason: blood transfusion Last Admin: 11/23/18 14:02 Dose: 650 mg Dextrose (Dextrose 50% Inj) 0 ml IV STAT PRN; Protocol PRN Reason: Hypoglycemia Protocol Dextrose (Glutose 15) 0 gm PO ONCE PRN; Protocol PRN Reason: Hypoglycemia Protocol Diphenhydramine HCl (Benadryl) 25 mg PO ONCE PRN PRN Reason: Blood transfusion Last Admin: 11/23/18 14:02 Dose: 25 mg Ferric Sodium Gluconate Complex (Ferrlecit) 125 mg IVPB DAILY [facility] Stop: 12/02/18 10:01 Last Admin: 11/27/18 09:00 Dose: 125 mg Fluconazole (Diflucan) 100 mg PEG DAILY [facility]; Protocol Stop: 12/05/18 10:00 Last Admin: 11/27/18 09:02 Dose: 100 mg Folic Acid (Folic Acid) 1 mg PO DAILY [facility] Last Admin: 11/26/18 09:37 Dose: 1 mg Glucagon (Glucagen Diagnostic Kit) 0 mg IM STAT PRN; Protocol PRN Reason: Hypoglycemia Protocol Piperacillin Sod/Tazobactam (Sod 3.375 gm/ Sodium Chloride) 100 mls @ 200 mls/hr IVPB Q6H [facility]; Protocol Last Admin: 11/27/18 02:06 Dose: 200 mls/hr Insulin Aspart (Novolog) 0 unit SC ACHS [facility]; Protocol Last Admin: 11/27/18 08:30 Dose: 3 units Lactobacillus Acidophilus (Lactobacillus) 1 cap PO Q12H [facility] Last Admin: 11/27/18 09:01 Dose: 1 cap Metformin HCl (Glucophage) 500 mg PO BIDCC [facility] Last Admin: 11/27/18 09:01 Dose: 500 mg Mirtazapine (Remeron) 15 mg PO HS [facility] Last Admin: 11/26/18 21:33 Dose: 15 mg Multivitamins (Hexavitamin) 1 tab PO DAILY [facility] Last Admin: 11/27/18 09:02 Dose: 1 tab Nicotine (Nicoderm Cq) 1 patch TD DAILY [facility] Last Admin: 11/26/18 09:37 Dose: 1 patch Pantoprazole Sodium (Protonix Ec Tab) 40 mg PO DAILY [facility] Last Admin: 11/27/18 09:01 Dose: 40 mg Sertraline HCl (Zoloft) 25 mg PO DAILY [facility] Last Admin: 11/27/18 09:02 Dose: 25 mg Sodium Chloride ([place] Baby Saline 30 Ml) 1 ml RODNEY BID [facility] Last Admin: 11/26/18 17:46 Dose: 1 spr Thiamine HCl (Vitamin B1 Tab) 100 mg PO DAILY [facility] Last Admin: 11/27/18 09:01 Dose: 100 mg - Labs Labs: 11/26/18 07:53 11/26/18 07:53 PT 15.2 SECONDS (9.7-12.2) H 11/12/18 06:13 INR 1.4 11/12/18 06:13 APTT 29 SECONDS (21-34) 11/12/18 06:13 - Constitutional Appears: Non-toxic, No Acute Distress, Cachectic, Chronically Ill - Head Exam Head Exam: ATRAUMATIC, NORMOCEPHALIC - Eye Exam Eye Exam: EOMI, Normal appearance - ENT Exam ENT Exam: Mucous Membranes Moist, Normal Exam - Respiratory Exam Respiratory Exam: Clear to Ausculation Bilateral, NORMAL BREATHING PATTERN. absent: Rales, Rhonchi, Wheezes - Cardiovascular Exam Cardiovascular Exam: REGULAR RHYTHM, +S1, +S2 - GI/Abdominal Exam GI & Abdominal Exam: Soft, Normal Bowel Sounds. absent: Distended, Tenderness Additional comments: PEG tube in place, covered in dressing c/d/i - Extremities Exam Extremities Exam: Full ROM, Normal Inspection. absent: Pedal Edema, Tenderness - Back Exam Back Exam: NORMAL INSPECTION - Neurological Exam Neurological Exam: Alert, Awake, Oriented x3 - Psychiatric Exam Psychiatric exam: Depressed, Flat Affect - Skin Skin Exam: Dry, Normal Color, Warm Assessment and Plan - Assessment and Plan (Free Text) Plan: Sepsis Urinary tract infection Bacteremia Empyema * Code sepsis 11/08/18 * Infectious Disease (Dr. Bojorquez) on board-->help appreciated * Criteria: leukocytosis, hypotension, bandemia, hypothermia, source of infections: empyema, uti, bacteremia * Lactic acid: 3.5-->1.7 on 11/08/18 * elevated procalcitonin: 1.49-->0.83 on 11/11/18 * Blood culture (11/08/18): Klebsiella pneumoniae * Sensitive to Zosyn with LUPE of less than 4 * Repeat Blood culture (11/11/18): finalized as negative at 5 days * Urine culture (11/08/18): Enterococcus Faecalis * Repeat Urine Culture (11/15/18): NO growth * MRSA (11/08/18): not detected * Pleural fluid (11/09/18): no acid fast bacilli * Pleural fluid (11/09/18): Streptococcus anginosus which is sensitive to Vancomycin which the patient was restarted on 11/11/18 * Chest xray (11/08/18): layering left pleural effusion and/or consolidation * Chest xray (11/09/18): slight increase in left perihilar/basilar opacity. small left pleural effusion, grossly unchanged * Iv abx: * Zosyn 3.375 g IV Q6H (active since 11/08/18) * Vancomycin 1 gram IV Q12 (11/08/18 through 11/11/18): spoke with ID Dr. Bojorquez 11/12/18: Zosyn will cover the Klebsiella, Streptococcus and the Enterococcus * CT Chest 11/12/18: moderate left sided hydropneumothorax, moderate right pleural effusion, bilateral lower lobe consolidations, mediastinal lymphadenopathy, moderate hiatal hernia with gastric wall thickening Empyema; Loculated Left Pleural effusion * Thoracic Surgery (Dr. Bro) on board-->help appreciated * VATS procedure cancelled on 11/12/18 * Repeat CT Chest ordered 11/12/18 * Chest xray (11.08.18): layering left pleural effusion and/or consolidation * Chest xray (11/09/18): slight increase in left perihilar/basilar opacity. small left pleural effusion, grossly unchanged * S/P IR thoracentesis 11/09/18; placement of pigtail catheter * Pleural fluid (11/09/18): Streptococcus anginosus which is sensitive to [facility] ncomycin which the patient was restarted on 11/11/18 * Pleural fluid (11/09/18): moderate PMNs, moderate gram positive cocci * Echocardiogram (08/20/18): left ventricular function is normal, left ventricular ejection fraction is within the the normal range about 55%, mild mitral valve regurgitation noted Anemia * Thoracic Surgery (Dr. Bro) on board-->help appreciated * GI (Dr. Aaron) on board-->help appreciated * Likely secondary to the suspicious mass found on EGD performed on 11/12/18? * On admission: hgb 10-->5 * blood transfusion consent obtained by resident 11/08/18 * given 3 units of PRBC overnight night and 1 FFP unit * rectal negative * ferritin low * iron low: will not repleat at this time considering multiple infections as documented in Assessment/Plan #1 * tibc: 148 low * transferrin low * Hgb 7.9 on 11/19/18 * Reticulocyte count: 2.2--> reticulocyte index: 0.12-->hypoproliferation <2 * Folate low * B12: 967 (low) * Occult blood: negative * CT Chest/Abdomen/pelvis (11/08/18): ascites, anasarca, interval loculated left pleural effusion, appearance of GE junction is indeterminate here a hiatal hernia vs mass * Hbg 6.9 11/23, received to PRBC * repeat CBC s/p blood transf - 9.8 * 11/24 hgb - 10.3 * continue to monitor H/H Cirrhosis * GI (Dr. Aaron) on board-->help appreciated * CT Chest/Abdomen/pelvis IV contrast (11/08/18): prior amount of ascites and anasarca has improved. further findings per report * Abdominal US (08/18/18): limited study. echogenic liver may be seen in hepatic parenchymal disease or fatty infiltrate. nodular hepatic contour. cholelithiasis. gallbladder wall thickening/pericholecystic edema. negative sonographic Cespedes's small abdominal ascites * Hepatitis Panel negative * Blood alcohol <10 * Patient notes he has drinking 3 shots of vodka X 30 years. Diabetes mellitus 2 * Hgba1c: 8.1 * Patient is off metformin given elevated lactic on admission * RISS Q6H * Metformin 1000mg BIDCC * Accuchecks Q6H GE junction Mass * Thoracic Surgery (Dr. Bro) on board-->help appreciated * GI (Dr. Aaron) on board-->help appreciated * CT Chest/Abdomen/pelvis (11/08/18): ascites, anasarca, interval loculated left pleural effusion, appearance of GE junction is indeterminate here a hiatal hernia vs mass * Patient is S/P Upper EGD on 11/12/18 and pathology from biopsy has confirmed Poorly Differentiated Squamous Cell CA * Heme/Oncologist Dr. Melody Paredes recommendation: outpatient PET Scan for staging and if NO mets then Chemo+Radiation and Surgical evaluation * Palliative Care Nurse Rosas is on board Adjustment disorder with depressed mood * Psych consult - Dr Xiao/Wilima * Patient currently on Zoloft 25mg QD, remeron 15mg HS * increase Zoloft to 50mg QD * Increase remeron to 30mg HS Alcohol use * Ciwa protocol * Aspiration precautions * Seizure precautions * Folic acid 1mg PO Daily * MVI tab PO daily * Thiamine 100mg PO daily * 3 shots of vodka X 30 years history * Monitor for withdrawal; patient is not currently in withdrawal * Abdominal US (08/18/18): limited study. Echogenic liver may be seen in hepatic parenchymal disease or fatty infiltrate. Nodular hepatic contour. cholelithiasis. Gallbladder wall thickening/pericholecystic edema. Negative sonographic Cespedes's small abdominal ascites Tobacco use * 1 ppd X30 years * Nicotine patch daily * Advised smoking cessation Cachexia * Related to alcohol, smoking, malnutrition, AND likely related to suspicious GE mass Ulcer of sacral region, stage 1 * Wound Care Nurse Joseph Amaya is on board: Charlene Price and continue to turn patient every 2 hours * 11/23/18- erythema improved, no skin breakdown. Prophylactic measure * PT/OT eval * Protonix 40mg IV q12H * Maalox q6H PRN for indigestion * DNI/DNR * Lovenox 40mg subq daily- on hold * SCDs * Bilateral LE Venous Doppler 11/12/18: NO DVTs * Liquid diet - ensure clear 2/day - apple flavor Disposition: As per ID, continue IV abx for total 14 days minimum (12/02/18). Plan for [facility] ([facility]) however insurance is covered in [place]- f/u approval for [place] [facility]. APS to be contacted by [facility] to evaluate patient's living conditions. Patient to have PET scan outpatient, if negative-> chemo and radiation followed by surgery consult. Plan discussed with Dr Jo Alonso, PGY-1 <Georgette Osorio V - Last Filed: 11/27/18 17:56> Objective - Vital Signs/Intake and Output Vital Signs (last 24 hours): Temp Pulse Resp BP Pulse Ox 98 F 73 20 121/72 99 11/27/18 15:00 11/27/18 15:00 11/27/18 15:00 11/27/18 15:00 11/27/18 15:00 Intake and Output: 11/27/18 11/27/18 06:59 18:59 Output Total 700 Balance -700 - Medications Medications: Current Medications Acetaminophen (Tylenol 325mg Tab) 650 mg PO Q6 PRN PRN Reason: Fever >100.4 F Acetaminophen (Tylenol 325mg Tab) 650 mg PO ONCE PRN PRN Reason: blood transfusion Last Admin: 11/23/18 14:02 Dose: 650 mg Al Hydrox/Mg Hydrox/Simethicone (Maalox 30 Ml) 30 ml PO Q6H PRN PRN Reason: Indigestion / Heartburn Dextrose (Dextrose 50% Inj) 0 ml IV STAT PRN; Protocol PRN Reason: Hypoglycemia Protocol Dextrose (Glutose 15) 0 gm PO ONCE PRN; Protocol PRN Reason: Hypoglycemia Protocol Diphenhydramine HCl (Benadryl) 25 mg PO ONCE PRN PRN Reason: Blood transfusion Last Admin: 11/23/18 14:02 Dose: 25 mg Ferric Sodium Gluconate Complex (Ferrlecit) 125 mg IVPB DAILY [facility] Stop: 12/02/18 10:01 Last Admin: 11/27/18 09:00 Dose: 125 mg Fluconazole (Diflucan) 100 mg PEG DAILY [facility]; Protocol Stop: 12/05/18 10:00 Last Admin: 11/27/18 09:02 Dose: 100 mg Folic Acid (Folic Acid) 1 mg PO DAILY [facility] Last Admin: 11/27/18 09:02 Dose: 1 mg Glucagon (Glucagen Diagnostic Kit) 0 mg IM STAT PRN; Protocol PRN Reason: Hypoglycemia Protocol Piperacillin Sod/Tazobactam (Sod 3.375 gm/ Sodium Chloride) 100 mls @ 200 mls/hr IVPB Q6H [facility]; Protocol Last Admin: 11/27/18 14:40 Dose: 200 mls/hr Insulin Aspart (Novolog) 0 unit SC Q6H [facility]; Protocol Last Admin: 11/27/18 17:47 Dose: 3 units Lactobacillus Acidophilus (Lactobacillus) 1 cap PO Q12H [facility] Last Admin: 11/27/18 09:01 Dose: 1 cap Metformin HCl (Glucophage) 1,000 mg PO BIDCC [facility] Last Admin: 11/27/18 17:47 Dose: 1,000 mg Mirtazapine (Remeron) 30 mg PO HS [facility] Multivitamins (Hexavitamin) 1 tab PO DAILY [facility] Last Admin: 11/27/18 09:02 Dose: 1 tab Nicotine (Nicoderm Cq) 1 patch TD DAILY [facility] Last Admin: 11/27/18 13:21 Dose: 1 patch Pantoprazole Sodium (Protonix Ec Tab) 40 mg PO DAILY [facility] Last Admin: 11/27/18 09:01 Dose: 40 mg Sertraline HCl (Zoloft) 50 mg PO DAILY [facility] Sodium Chloride ([place] Baby Saline 30 Ml) 1 ml RODNEY BID [facility] Last Admin: 11/27/18 17:47 Dose: 1 spr Thiamine HCl (Vitamin B1 Tab) 100 mg PO DAILY [facility] Last Admin: 11/27/18 09:01 Dose: 100 mg - Labs Labs: 11/26/18 07:53 11/26/18 07:53 PT 15.2 SECONDS (9.7-12.2) H 11/12/18 06:13 INR 1.4 11/12/18 06:13 APTT 29 SECONDS (21-34) 11/12/18 06:13 Assessment and Plan (1) Sepsis Status: Acute (2) Pleural effusion Status: Acute (3) Anemia Status: Acute (4) Cirrhosis Status: Acute (5) Diabetes mellitus Status: Acute (6) Abnormal CT scan, chest Status: Acute (7) Alcohol use Status: Acute (8) Tobacco use Status: Acute (9) Cachexia Status: Acute (10) Ulcer of sacral region, stage 1 Status: Acute (11) Prophylactic measure Status: Acute Attending/Attestation - Attestation I have personally seen and examined this patient.: Yes I have fully participated in the care of the patient.: Yes I have reviewed all pertinent clinical information, including history, physical exam and plan: Yes Notes (Text): Patient seen, examined, and case discussed with medical transcription supervisor. Patient is awaiting placement to [facility] pending approval from his insurance; case management and social work are aware. Discussed with nurse, Mary, patient is having soft stool (not diarrhea) while on his bolus feeds. Patient noted he feels indigestion; started on PRN maa lox. Patient's sugars are elevated. Changed sugars to Q6 hours and novolog sliding scale to [id number]. Patient's metformin changed to 1000mg PO BID as well. Patient appears to be depression. Resident has spoken with Dr. Swain who is covering Dr Xiao who is on vacation. Patient's Remeron changed to 30mg PO daily and Zoloft changed to higher dose as well. Patient remain on Zosyn until 12/07/18. Patient is on Diflucan for yeast noted on endoscopy until 12/05/18. Pa Patient needs encouragement to continue on chair; notes he feels lightheadness. We have held off blood work today to given him a break. He will get blood work tomorrow.
[2018-11-27] MEDS ORDERED: Aluminum Hydroxide/Magnesium Hydroxide Susp (30 mL) PO PRN (11:00)
--- NOTE | 2018-11-27 23:15 | CP.PCM.PN ---
Subjective - Date & Time of Evaluation Date of Evaluation: 11/26/18 Time of Evaluation: 19:00 - Subjective Subjective: No complaints. Objective - Vital Signs/Intake and Output Vital Signs (last 24 hours): Temp Pulse Resp BP Pulse Ox 98 F 73 20 121/72 99 11/27/18 15:00 11/27/18 15:00 11/27/18 15:00 11/27/18 15:00 11/27/18 15:00 - Medications Medications: Current Medications Acetaminophen (Tylenol 325mg Tab) 650 mg PO Q6 PRN PRN Reason: Fever >100.4 F Acetaminophen (Tylenol 325mg Tab) 650 mg PO ONCE PRN PRN Reason: blood transfusion Last Admin: 11/23/18 14:02 Dose: 650 mg Al Hydrox/Mg Hydrox/Simethicone (Maalox 30 Ml) 30 ml PO Q6H PRN PRN Reason: Indigestion / Heartburn Dextrose (Dextrose 50% Inj) 0 ml IV STAT PRN; Protocol PRN Reason: Hypoglycemia Protocol Dextrose (Glutose 15) 0 gm PO ONCE PRN; Protocol PRN Reason: Hypoglycemia Protocol Diphenhydramine HCl (Benadryl) 25 mg PO ONCE PRN PRN Reason: Blood transfusion Last Admin: 11/23/18 14:02 Dose: 25 mg Ferric Sodium Gluconate Complex (Ferrlecit) 125 mg IVPB DAILY [facility] Stop: 12/02/18 10:01 Last Admin: 11/27/18 09:00 Dose: 125 mg Fluconazole (Diflucan) 100 mg PEG DAILY [facility]; Protocol Stop: 12/05/18 10:00 Last Admin: 11/27/18 09:02 Dose: 100 mg Folic Acid (Folic Acid) 1 mg PO DAILY [facility] Last Admin: 11/27/18 09:02 Dose: 1 mg Glucagon (Glucagen Diagnostic Kit) 0 mg IM STAT PRN; Protocol PRN Reason: Hypoglycemia Protocol Piperacillin Sod/Tazobactam (Sod 3.375 gm/ Sodium Chloride) 100 mls @ 200 mls/hr IVPB Q6H [facility]; Protocol Last Admin: 11/27/18 20:59 Dose: 200 mls/hr Insulin Aspart (Novolog) 0 unit SC Q6H [facility]; Protocol Last Admin: 11/27/18 22:46 Dose: Not Given Lactobacillus Acidophilus (Lactobacillus) 1 cap PO Q12H [facility] Last Admin: 11/27/18 21:03 Dose: 1 cap Metformin HCl (Glucophage) 1,000 mg PO BIDCC [facility] Last Admin: 11/27/18 17:47 Dose: 1,000 mg Mirtazapine (Remeron) 30 mg PO HS [facility] Last Admin: 11/27/18 21:03 Dose: 30 mg Multivitamins (Hexavitamin) 1 tab PO DAILY [facility] Last Admin: 11/27/18 09:02 Dose: 1 tab Nicotine (Nicoderm Cq) 1 patch TD DAILY [facility] Last Admin: 11/27/18 13:21 Dose: 1 patch Pantoprazole Sodium (Protonix Ec Tab) 40 mg PO DAILY [facility] Last Admin: 11/27/18 09:01 Dose: 40 mg Sertraline HCl (Zoloft) 50 mg PO DAILY [facility] Sodium Chloride ([place] Baby Saline 30 Ml) 1 ml RODNEY BID [facility] Last Admin: 11/27/18 17:47 Dose: 1 spr Thiamine HCl (Vitamin B1 Tab) 100 mg PO DAILY [facility] Last Admin: 11/27/18 09:01 Dose: 100 mg - Labs Labs: 11/26/18 07:53 11/26/18 07:53 PT 15.2 SECONDS (9.7-12.2) H 11/12/18 06:13 INR 1.4 11/12/18 06:13 APTT 29 SECONDS (21-34) 11/12/18 06:13 - Head Exam Head Exam: ATRAUMATIC - Eye Exam Eye Exam: Normal appearance - ENT Exam ENT Exam: Mucous Membranes Dry - Respiratory Exam Respiratory Exam: NORMAL BREATHING PATTERN - Cardiovascular Exam Cardiovascular Exam: +S1, +S2 - GI/Abdominal Exam GI & Abdominal Exam: Normal Bowel Sounds Assessment and Plan (1) Anemia Assessment & Plan: iron deficiency s/p PRBC transfusion on IV iron Status: Acute (2) Esophageal mass Assessment & Plan: outpatient PET CT scan for staging outpatient treatment Status: Acute
--- NOTE | 2018-11-27 23:16 | CP.PCM.PN ---
Subjective - Date & Time of Evaluation Date of Evaluation: 11/27/18 Time of Evaluation: 18:00 - Subjective Subjective: No complaints. Objective - Vital Signs/Intake and Output Vital Signs (last 24 hours): Temp Pulse Resp BP Pulse Ox 98 F 73 20 121/72 99 11/27/18 15:00 11/27/18 15:00 11/27/18 15:00 11/27/18 15:00 11/27/18 15:00 - Medications Medications: Current Medications Acetaminophen (Tylenol 325mg Tab) 650 mg PO Q6 PRN PRN Reason: Fever >100.4 F Acetaminophen (Tylenol 325mg Tab) 650 mg PO ONCE PRN PRN Reason: blood transfusion Last Admin: 11/23/18 14:02 Dose: 650 mg Al Hydrox/Mg Hydrox/Simethicone (Maalox 30 Ml) 30 ml PO Q6H PRN PRN Reason: Indigestion / Heartburn Dextrose (Dextrose 50% Inj) 0 ml IV STAT PRN; Protocol PRN Reason: Hypoglycemia Protocol Dextrose (Glutose 15) 0 gm PO ONCE PRN; Protocol PRN Reason: Hypoglycemia Protocol Diphenhydramine HCl (Benadryl) 25 mg PO ONCE PRN PRN Reason: Blood transfusion Last Admin: 11/23/18 14:02 Dose: 25 mg Ferric Sodium Gluconate Complex (Ferrlecit) 125 mg IVPB DAILY [facility] Stop: 12/02/18 10:01 Last Admin: 11/27/18 09:00 Dose: 125 mg Fluconazole (Diflucan) 100 mg PEG DAILY [facility]; Protocol Stop: 12/05/18 10:00 Last Admin: 11/27/18 09:02 Dose: 100 mg Folic Acid (Folic Acid) 1 mg PO DAILY [facility] Last Admin: 11/27/18 09:02 Dose: 1 mg Glucagon (Glucagen Diagnostic Kit) 0 mg IM STAT PRN; Protocol PRN Reason: Hypoglycemia Protocol Piperacillin Sod/Tazobactam (Sod 3.375 gm/ Sodium Chloride) 100 mls @ 200 mls/hr IVPB Q6H [facility]; Protocol Last Admin: 11/27/18 20:59 Dose: 200 mls/hr Insulin Aspart (Novolog) 0 unit SC Q6H [facility]; Protocol Last Admin: 11/27/18 22:46 Dose: Not Given Lactobacillus Acidophilus (Lactobacillus) 1 cap PO Q12H [facility] Last Admin: 11/27/18 21:03 Dose: 1 cap Metformin HCl (Glucophage) 1,000 mg PO BIDCC [facility] Last Admin: 11/27/18 17:47 Dose: 1,000 mg Mirtazapine (Remeron) 30 mg PO HS [facility] Last Admin: 11/27/18 21:03 Dose: 30 mg Multivitamins (Hexavitamin) 1 tab PO DAILY [facility] Last Admin: 11/27/18 09:02 Dose: 1 tab Nicotine (Nicoderm Cq) 1 patch TD DAILY [facility] Last Admin: 11/27/18 13:21 Dose: 1 patch Pantoprazole Sodium (Protonix Ec Tab) 40 mg PO DAILY [facility] Last Admin: 11/27/18 09:01 Dose: 40 mg Sertraline HCl (Zoloft) 50 mg PO DAILY [facility] Sodium Chloride ([place] Baby Saline 30 Ml) 1 ml RODNEY BID [facility] Last Admin: 11/27/18 17:47 Dose: 1 spr Thiamine HCl (Vitamin B1 Tab) 100 mg PO DAILY [facility] Last Admin: 11/27/18 09:01 Dose: 100 mg - Labs Labs: 11/26/18 07:53 11/26/18 07:53 PT 15.2 SECONDS (9.7-12.2) H 11/12/18 06:13 INR 1.4 11/12/18 06:13 APTT 29 SECONDS (21-34) 11/12/18 06:13 - Head Exam Head Exam: ATRAUMATIC - Eye Exam Eye Exam: Normal appearance - ENT Exam ENT Exam: Mucous Membranes Dry - Respiratory Exam Respiratory Exam: NORMAL BREATHING PATTERN - Cardiovascular Exam Cardiovascular Exam: +S1, +S2 - GI/Abdominal Exam GI & Abdominal Exam: Normal Bowel Sounds Assessment and Plan (1) Anemia Assessment & Plan: iron deficiency s/p PRBC transfusion on IV iron Status: Acute (2) Esophageal mass Assessment & Plan: outpatient PET CT scan for staging outpatient treatment Status: Acute
[2018-11-28] MEDS: Piperacillin/Tazobact 3.375 GM in Sodium Chloride 100 ML IVPB SCH ×3 (02:27→14:41)
[2018-11-28] MEDS: (Novolog) Insulin Aspart, Recombinant 100 u/ml 10 ml vial SC SCH ×3 (05:51→18:00)
[2018-11-28 08:21] VITALS: BP 144/84; PULSE 72; RESP 18; TEMP 97.7; O2SAT 98
[2018-11-28] MEDS: Sodium Chloride Nasal 0.65% Soln (30ml) NAS SCH ×2 (11:01→18:00)
[2018-11-28] MEDS: Pantoprazole 40 mg EC Tab PO SCH (11:10)
[2018-11-28] MEDS: Lactobacillus Acidophilus 500 MU Cap PO SCH (11:45)
[2018-11-28] MEDS: Multiple Vitamins Tab PO SCH (11:46)
[2018-11-28] MEDS: Ferric Sodium Gluconat Complex 62.5 mg/5 ml Vial IVPB SCH (11:47)
[2018-11-28 11:48] LABS: ALB/GLOB RATIO 0.7 (1.0-2.1); ALBUMIN 2.4 g/dL (3.5-5.0); ALT/SGPT 13 U/L (21-72); AST/SGOT 12 U/L (17-59); BLOOD UREA NITROGEN 10 mg/dL (9-20); CALCIUM 11.2 mg/dl (8.6-10.4); GFR NON-AFRICAN AMERICAN > 60
--- NOTE | 2018-11-28 11:52 | CP.PCM.DIS ---
<Berenice Barnett P - Last Filed: 11/28/18 13:16> Provider - Provider Date of Admission: 11/08/18 14:22 Attending physician: Georgette Osorio DO Consults: 11/08/18 15:01 Cardiology Consult Routine Comment: Consulting Provider: Augustus Dodge Consulting Physician: Augustus Dodge Reason for Consult: hx CHF, hx abnormal stress test outpt, dyspnea on exertion 11/08/18 16:27 Wound Care [Nursing Referral for Wound Care] Routine Comment: Physician Instructions: Reason For Exam: wound care eval, please check sacral area 11/09/18 07:51 General Surgery Consult Routine Comment: Consulting Provider: Theron Patterson Consulting Physician: Theron Patterson Reason for Consult: L pleural effusion 11/09/18 10:20 Infectious Disease Consult Routine Comment: Consulting Provider: Jose Bojorquez Consulting Physician: Jose Bojorquez Reason for Consult: code sepsis, unclear etiology 11/11/18 19:32 Psychiatry Consult Routine Comment: Consulting Provider: Lissy Xiao Consulting Physician: Lissy Xiao Reason for Consult: eval for depression, longstanding alcohol/smoker/caregiver stress 11/13/18 08:28 Hematology Oncology Consult Routine Comment: Consulting Provider: Devante Paredes Consulting Physician: Devante Paredes Reason for Consult: 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 11/13/18 11:34 Palliative Care Consult Routine Comment: Consulting Provider: Doris Pillai Physician Instructions: RANDA Sebastian MD Reason For Exam: goals of care discussion 11/22/18 06:34 Pastoral Care Referral Routine Comment: Physician Instructions: Reason For Exam: low mood, motivation Time Spent in preparation of Discharge (in minutes): 35 Diagnosis - Discharge Diagnosis (1) Bacteremia Status: Acute (2) Empyema Status: Acute (3) UTI (urinary tract infection) Status: Acute (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 11/09/18 10:58 Other: Please Indicate Mycobacterial Culture - Preliminary 11/15/18 01:41 Urine Random Urine Culture - Final No Growth (<1,000 CFU/ML) 11/11/18 05:49 Blood Blood Culture - Final NO GROWTH AFTER 5 DAYS 11/11/18 05:49 Blood Gram Stain - Final TEST NOT PERFORMED 11/11/18 05:48 Blood Blood Culture - Final NO GROWTH AFTER 5 DAYS 11/11/18 05:48 Blood Gram Stain - Final TEST NOT PERFORMED 11/13/18 05:47 Nose MRSA Culture - Final MRSA NOT DETECTED 11/08/18 14:12 Blood Blood Culture - Final NO GROWTH AFTER 5 DAYS 11/08/18 14:12 Blood Gram Stain - Final TEST NOT PERFORMED 11/09/18 10:58 Pleural Fluid Gram Stain - Preliminary 11/09/18 10:58 Pleural Fluid Body Fluid Culture - Final Streptococcus anginosus group 11/09/18 10:58 Pleural Fluid Anaerobic Culture - Final NO ANAEROBES ISOLATED. 11/08/18 14:13 Blood Blood Culture - Final Klebsiella Pneumoniae Ssp Pneu 11/08/18 14:13 Blood Gram Stain - Final 11/08/18 14:07 Urine,Catheterized Urine Culture - Final Enterococcus Faecalis 11/08/18 16:07 Naris MRSA Culture (Admit) - Final MRSA NOT DETECTED Most Recent Lab Values WBC 10.2 K/uL (4.8-10.8) 11/26/18 07:53 RBC 3.80 Mil/uL (4.40-5.90) L 11/26/18 07:53 Hgb 10.3 g/dL (12.0-18.0) L 11/26/18 07:53 Hct 31.4 % (35.0-51.0) L 11/26/18 07:53 MCV 82.8 fL (80.0-94.0) 11/26/18 07:53 MCH 27.1 pg (27.0-31.0) 11/26/18 07:53 MCHC 32.8 g/dL (33.0-37.0) L 11/26/18 07:53 RDW 18.4 % (11.5-14.5) H 11/26/18 07:53 Plt Count 183 K/uL (130-400) 11/26/18 07:53 MPV 8.6 fL (7.2-11.7) 11/26/18 07:53 Neut % (Auto) 67.4 % (50.0-75.0) 11/26/18 07:53 Lymph % (Auto) 11.7 % (20.0-40.0) L 11/26/18 07:53 [place] % (Auto) 13.7 % (0.0-10.0) H 11/26/18 07:53 Eos % (Auto) 6.4 % (0.0-4.0) H 11/26/18 07:53 Baso % (Auto) 0.8 % (0.0-2.0) 11/26/18 07:53 Neut # (Auto) 6.9 K/uL (1.8-7.0) 11/26/18 07:53 Lymph # (Auto) 1.2 K/uL (1.0-4.3) 11/26/18 07:53 [place] # (Auto) 1.4 K/uL (0.0-0.8) H 11/26/18 07:53 Eos # (Auto) 0.7 K/uL (0.0-0.7) 11/26/18 07:53 Baso # (Auto) 0.1 K/uL (0.0-0.2) 11/26/18 07:53 Neutrophils % (Manual) 68 % (50-75) 11/22/18 08:21 Band Neutrophils % 13 % (0-2) H* 11/22/18 08:21 Lymphocytes % (Manual) 11 % (20-40) L 11/22/18 08:21 Monocytes % (Manual) 5 % (0-10) 11/22/18 08:21 Eosinophils % (Manual) 3 % (0-4) 11/22/18 08:21 Toxic Granulation Present 11/22/18 08:21 Platelet Estimate Normal (NORMAL) 11/22/18 08:21 Large Platelets Present 11/18/18 08:43 Polychromasia Slight 11/18/18 08:43 Hypochromasia (manual) Slight 11/21/18 06:49 Poikilocytosis (manual Slight 11/21/18 06:49 Anisocytosis (manual) Moderate 11/22/18 08:21 Microcytosis (manual) Moderate 11/22/18 08:21 Target Cells Slight 11/21/18 06:49 Tear Drop Cells Slight 11/21/18 06:49 Ovalocytes Slight 11/22/18 08:21 Smear Path Review 11/08/18 13:39 Retic Count 2.2 % (0.5-1.5) H 11/08/18 18:21 PT 15.2 SECONDS (9.7-12.2) H 11/12/18 06:13 INR 1.4 11/12/18 06:13 APTT 29 SECONDS (21-34) 11/12/18 06:13 pO2 73 mm/Hg (30-55) H 11/08/18 14:55 VBG pH 7.34 (7.32-7.43) 11/08/18 14:55 VBG pCO2 23 mmHg (40-60) L 11/08/18 14:55 VBG HCO3 15.9 mmol/L 11/08/18 14:55 VBG Total CO2 13.1 mmol/L (22-28) L 11/08/18 14:55 VBG O2 Sat (Calc) 94.4 % (40-65) H 11/08/18 14:55 VBG Base Excess -11.4 mmol/L (0.0-2.0) L 11/08/18 14:55 VBG Potassium 2.0 mmol/L (3.6-5.2) L* 11/08/18 14:55 Sodium 135.0 mmol/l (132-148) 11/08/18 14:55 Chloride 104.0 mmol/L (98-107) 11/08/18 14:55 Glucose 244 mg/dl (75-110) H 11/08/18 14:55 Lactate 1.7 mmol/L (0.7-2.1) 11/08/18 14:55 Crit Value Called To Dr. kumar 11/08/18 14:55 Crit Value Called By Afsaneh perez rcp 11/08/18 14:55 Crit Value Read Back Y 11/08/18 14:55 Blood Gas Notified Time 1505 11/08/18 14:55 Sodium 139 mmol/L (132-148) 11/28/18 11:23 Potassium 3.0 mmol/L (3.6-5.2) L 11/28/18 11:23 Chloride 100 mmol/L (98-107) 11/28/18 11:23 Carbon Dioxide 38 mmol/L (22-30) H 11/28/18 11:23 Anion Gap 4 (10-20) L 11/28/18 11:23 BUN 10 mg/dL (9-20) 11/28/18 11:23 Creatinine 0.4 mg/dL (0.8-1.5) L 11/28/18 11:23 Est GFR ( Amer) > 60 11/28/18 11:23 Est GFR (Non-Af Amer) > 60 11/28/18 11:23 POC Glucose (mg/dL) 262 mg/dL (65-110) H 11/28/18 11:24 Random Glucose 255 mg/dL (75-110) H 11/28/18 11:23 Hemoglobin A1c 8.1 % (4.2-6.5) H D 11/09/18 06:02 Lactic Acid 1.2 mmol/L (0.7-2.1) 11/11/18 05:47 Calcium 11.2 mg/dl (8.6-10.4) H 11/28/18 11:23 Phosphorus 2.6 mg/dL (2.5-4.5) 11/28/18 11:23 Magnesium 1.9 mg/dL (1.6-2.3) 11/28/18 11:23 Iron < 10 ug/dL (49-181) L 11/08/18 16:07 TIBC 148 ug/dL (250-450) L 11/08/18 16:07 % Saturation (20-55) 11/08/18 16:07 Transferrin < 80.00 mg/dL (206-381) L 11/08/18 16:07 Ferritin 39.5 ng/mL 11/08/18 16:07 Total Bilirubin 0.4 mg/dL (0.2-1.3) 11/28/18 11:23 AST 12 U/L (17-59) L D 11/28/18 11:23 ALT 13 U/L (21-72) L D 11/28/18 11:23 Alkaline Phosphatase 69 U/L (38-126) 11/28/18 11:23 Ammonia 29 umol/L (9-33) 11/08/18 16:07 Troponin I < 0.0120 ng/mL (0.00-0.120) 11/08/18 13:39 NT-Pro-B Natriuret Pep 421 pg/mL (0-900) 11/08/18 13:39 Total Protein 5.6 g/dL (6.3-8.3) L 11/28/18 11:23 Albumin 2.4 g/dL (3.5-5.0) L 11/28/18 11:23 Globulin 3.2 gm/dL (2.2-3.9) 11/28/18 11:23 Albumin/Globulin Ratio 0.7 (1.0-2.1) L 11/28/18 11:23 Triglycerides 76 mg/dL (0-149) 11/09/18 05:45 Cholesterol < 50 mg/dL (0-199) 11/09/18 05:45 LDL Cholesterol Direct 36 mg/dL (0-129) 11/09/18 05:45 HDL Cholesterol 16 mg/dL (30-70) L 11/09/18 05:45 Vitamin B12 967 pg/mL (239-931) H 11/08/18 16:07 Folate 10.5 ng/mL 11/08/18 16:07 Procalcitonin 0.14 NG/ML (0.19-0.49) L 11/17/18 06:53 Venous Blood Potassium 2.0 mmol/L (3.6-5.2) L* 11/08/18 14:55 Urine Color Yellow (YELLOW) 11/08/18 14:07 Urine Clarity Hazy (Clear) 11/08/18 14:07 Urine pH 5.0 (5.0-8.0) 11/08/18 14:07 Ur Specific [place] 1.022 (1.003-1.030) 11/08/18 14:07 Urine Protein 1+ mg/dL (NEGATIVE) H 11/08/18 14:07 Urine Glucose (UA) 3+ mg/dL (Normal) H 11/08/18 14:07 Urine Ketones 2+ mg/dL (NEGATIVE) H 11/08/18 14:07 Urine Blood Negative (NEGATIVE) 11/08/18 14:07 Urine Nitrate Negative (NEGATIVE) 11/08/18 14:07 Urine Bilirubin Negative (NEGATIVE) 11/08/18 14:07 Urine Urobilinogen Normal mg/dL (0.2-1.0) 11/08/18 14:07 Ur Leukocyte Esterase Neg Fausto/uL (Negative) 11/08/18 14:07 Urine WBC (Auto) 8 /hpf (0-5) H 11/08/18 14:07 Urine RBC (Auto) 2 /hpf (0-3) 11/08/18 14:07 Ur Squamous Epith Cells < 1 /hpf (0-5) 11/08/18 14:07 Urine Bacteria Rare (<OCC) 11/08/18 14:07 Hyaline Casts >20 /lpf (0-2) H 11/08/18 14:07 Fluid Albumin 0.3 g/dL 11/09/18 10:58 Pleural Total Protein <3.0 g/dL 11/09/18 10:58 Pleural LDH 1113 U/L 11/09/18 10:58 Pleural Glucose <10 mg/dL L 11/09/18 10:58 Stool Occult Blood Negative (NEGATIVE) 11/08/18 13:39 Vancomycin Trough < 5.0 ug/mL (5.0-10.0) L 11/14/18 07:50 Alcohol, Quantitative < 10 mg/dl (0-10) 11/08/18 16:07 B-Hydroxybutyrate 4.94 mM (0.02-0.27) H 11/08/18 16:07 Hepatitis A IgM Ab Negative (NEGATIVE) 11/08/18 16:07 Hep Bs Antigen Negative (NEGATIVE) 11/08/18 16:07 Hep B Core IgM Ab Negative (NEGATIVE) 11/08/18 16:07 Hepatitis C Antibody Negative (NEGATIVE) 11/08/18 16:07 Blood Type AB POSITIVE 11/23/18 10:59 Blood Type Confirm AB POSITIVE 11/08/18 13:39 Antibody Screen Negative 11/23/18 10:59 - Hospital Course Hospital Course: On admission: This is a 58 y o male with PMHx DM2, CHF (last EF 55%) who presents to the ED today s/p fall at home today. States he was moving from 1 room to another at home while carrying his breakfast this am and felt generalized weakness and felt like his legs were about to give out from underneath him. States he slid down on his legs during fall, did not hit head or lose consciousness during episode, fall was unwitnessed. Also reports having near-fall episode yesterday but states he was able to catch himself on his own and balance prior to fall. Reports decreased PO appetite for the past week, reports last BM was 1 week prior. Admits to hx of chronic constipation and pain with straining, does not take any stool softeners at home for symptoms. Admits to unintentional weight loss of 35 lbs over the past year. States he changed his PMD and followed up with Dr. Price after his prior d/c from [facility] in Aug 2018, was referred to [facility] (Dr. Ma) for further work-up of dyspnea on exertion, which pt states has been present for a long time. Pt states he gets short of breath after only walking several steps at home, and states he has been sitting at home in 1 position more often since his d/c from the hospital in Aug 2018. Pt states he had an abnormal cardiac stress test, but states he did not follow-up with either Dr. Ma or his PMD after he had his test done. Denies hx of sick contacts. Admits to feeling chills. Denies fever, vision changes, lightheadedness, chest pain, sob, n/v/d, abd pain, urinary complaints, melena, hematochezia, numbness/tingling in extremities, or other symptoms. Hospital Course: Sepsis Urinary tract infection Bacteremia Empyema * Code sepsis 11/08/18 * Infectious Disease (Dr. Bojorquez) on board-->help appreciated * Criteria: leukocytosis, hypotension, bandemia, hypothermia, source of infections: empyema, uti, bacteremia * Lactic acid: 3.5-->1.7 on 11/08/18 * elevated procalcitonin: 1.49-->0.83 on 11/11/18 * Blood culture (11/08/18): Klebsiella pneumoniae * Sensitive to Zosyn with LUPE of less than 4 * Repeat Blood culture (11/11/18): finalized as negative at 5 days * Urine culture (11/08/18): Enterococcus Faecalis * Repeat Urine Culture (11/15/18): NO growth * MRSA (11/08/18): not detected * Pleural fluid (11/09/18): no acid fast bacilli * Pleural fluid (11/09/18): Streptococcus anginosus which is sensitive to Vancomycin which the patient was restarted on 11/11/18 * Chest xray (11/08/18): layering left pleural effusion and/or consolidation * Chest xray (11/09/18): slight increase in left perihilar/basilar opacity. small left pleural effusion, grossly unchanged * Iv abx: * Zosyn 3.375 g IV Q6H (active since 11/08/18) * Vancomycin 1 gram IV Q12 (11/08/18 through 11/11/18): spoke with ID Dr. Bojorquez 11/12/18: Zosyn will cover the Klebsiella, Streptococcus and the Enterococcus * CT Chest 11/12/18: moderate left sided hydropneumothorax, moderate right pleural effusion, bilateral lower lobe consolidations, mediastinal lymphadenopathy, moderate hiatal hernia with gastric wall thickening Empyema; Loculated Left Pleural effusion * Thoracic Surgery (Dr. Bro) on board-->help appreciated * VATS procedure cancelled on 11/12/18 * Repeat CT Chest ordered 11/12/18 * Chest xray (11.08.18): layering left pleural effusion and/or consolidation * Chest xray (11/09/18): slight increase in left perihilar/basilar opacity. small left pleural effusion, grossly unchanged * S/P IR thoracentesis 11/09/18; placement of pigtail catheter * Pleural fluid (11/09/18): Streptococcus anginosus which is sensitive to Vancomycin which the patient was restarted on 11/11/18 * Pleural fluid (11/09/18): moderate PMNs, moderate gram positive cocci * Echocardiogram (08/20/18): left ventricular function is normal, left ventricular ejection fraction is within the the normal range about 55%, mild mitral valve regurgitation noted Anemia * Thoracic Surgery (Dr. Bro) on board-->help appreciated * GI (Dr. Aaron) on board-->help appreciated * Likely secondary to the suspicious mass found on EGD performed on 11/12/18? * On admission: hgb 10-->5 * blood transfusion consent obtained by resident 11/08/18 * given 3 units of PRBC overnight night and 1 FFP unit * rectal negative * ferritin low * iron low: will not repleat at this time considering multiple infections as documented in Assessment/Plan #1 * tibc: 148 low * transferrin low * Hgb 7.9 on 11/19/18 * Reticulocyte count: 2.2--> reticulocyte index: 0.12-->hypoproliferation <2 * Folate low * B12: 967 (low) * Occult blood: negative * CT Chest/Abdomen/pelvis (11/08/18): ascites, anasarca, interval loculated left pleural effusion, appearance of GE junction is indeterminate here a hiatal hernia vs mass * Hbg 6.9 11/23, received to PRBC * repeat CBC s/p blood transf - 9.8 * 11/24 hgb - 10.3 * continue to monitor H/H Cirrhosis * GI (Dr. Aaron) on board-->help appreciated * CT Chest/Abdomen/pelvis IV contrast (11/08/18): prior amount of ascites and anasarca has improved. further findings per report * Abdominal US (08/18/18): limited study. echogenic liver may be seen in hepatic parenchymal disease or fatty infiltrate. nodular hepatic contour. cholelithiasis. gallbladder wall thickening/pericholecystic edema. negative sonographic Cespedes's small abdominal ascites * Hepatitis Panel negative * Blood alcohol <10 * Patient notes he has drinking 3 shots of vodka X 30 years. Diabetes mellitus 2 * Hgba1c: 8.1 * Patient is off metformin given elevated lactic on admission * RISS Q6H * Metformin 1000mg BIDCC * Accuchecks Q6H GE junction Mass * Thoracic Surgery (Dr. Bro) on board-->help appreciated * GI (Dr. Aaron) on board-->help appreciated * CT Chest/Abdomen/pelvis (11/08/18): ascites, anasarca, interval loculated left pleural effusion, appearance of GE junction is indeterminate here a hiatal hernia vs mass * Patient is S/P Upper EGD on 11/12/18 and pathology from biopsy has confirmed Poorly Differentiated Squamous Cell CA * Heme/Oncologist Dr. Melody Paredes recommendation: outpatient PET Scan for staging and if NO mets then Chemo+Radiation and Surgical evaluation * Palliative Care Nurse Rosas is on board Adjustment disorder with depressed mood * Psych consult - Dr Xiao/Wiliam * increase Zoloft to 50mg QD * Increase remeron to 30mg HS Alcohol use * Ciwa protocol * Aspiration precautions * Seizure precautions * Folic acid 1mg PO Daily * MVI tab PO daily * Thiamine 100mg PO daily * 3 shots of vodka X 30 years history * Monitor for withdrawal; patient is not currently in withdrawal * Abdominal US (08/18/18): limited study. Echogenic liver may be seen in hepatic parenchymal disease or fatty infiltrate. Nodular hepatic contour. cholelithiasis. Gallbladder wall thickening/pericholecystic edema. Negative sonographic Cespedes's small abdominal ascites Tobacco use * 1 ppd X30 years * Nicotine patch daily * Advised smoking cessation Cachexia * Related to alcohol, smoking, malnutrition, AND likely related to suspicious GE mass Ulcer of sacral region, stage 1 * Wound Care Nurse Joseph Amaya is on board: [place] and continue to turn patient every 2 hours * 11/23/18- erythema improved, no skin breakdown. Prophylactic measure * PT/OT eval * Protonix 40mg IV q12H * Maalox q6H PRN for indigestion * DNI/DNR * Lovenox 40mg subq daily- on hold * SCDs * Bilateral LE Venous Doppler 11/12/18: NO DVTs * Liquid diet - ensure clear 2/day - apple flavor Discharge instructions: Patient is stable for discharge as per Dr. Osorio. Pt is to be transferd to [place]. pt is to continue zosyn IVPB until 12/02/18 Patient is to continue Diflucan for yeast noted on endoscopy until 12/05/18. Patient to have PET scan outpatient, which will decide his treatment plan. If results are negative, patient will need chemo and radiation followed by a surgery consult. Patient must follow-up with Dr. Devante Ramírez, heme-oncology. Adult protective services to be contacted by Rehab facility to evaluate safety of living condition. Patient will continue the following medications: Maalox 30 ml PO Q6H PRN hypoglycemia protocol Ferrlecit 125mg PEG daily until 12/02/18 Fluconazole 100mg PEG daily until 12/05/18 Folic acid 1mg PO daily Novolg sliding scale Q6H Lactobacillus 1 cap PO Q12H until 01/04/19 Metformin 100mg PO BIDCC Multivitamins 1 tab PO daily Nicotine 21mg/24hr 1 patch daily Zosyn 3.375 IVPB Q6H for 5 days Zoloft 50mg PO daily Ayrl Baby saline 1 ml RODNEY BID Thiamine 100mg PO daily Return to the emergency room for new or worsening symptoms. Discharge Exam - Head Exam Head Exam: ATRAUMATIC - Additional Findings Additional findings: - Constitutional Appears: No Acute Distress, cachectic - Head Exam Head Exam: ATRAUMATIC, NORMOCEPHALIC - Eye Exam Eye Exam: EOMI, Normal appearance, PERRL - ENT Exam ENT Exam: Mucous Membranes Moist - Neck Exam Neck Exam: Full ROM, Normal Inspection - Respiratory Exam Respiratory Exam: Decreased Breath Sounds (diffusely) - Cardiovascular Exam Cardiovascular Exam: REGULAR RHYTHM, +S1, +S2 - GI/Abdominal Exam GI & Abdominal Exam: Soft. absent: Distended, Firm, Guarding, Rigid, Tenderness Additional comments: PEG tube in place, area clean and dry without signs of infection - Extremities Exam Extremities Exam: Calf Tenderness, Full ROM, Picc line RUE. absent: Pedal Edema, Tenderness - Neurological Exam Neurological Exam: Alert, Awake, Oriented x3 - Psychiatric Exam Psychiatric exam: Normal Affect - Skin Skin Exam: Dry, Intact, Pallor, Warm. Erythema to sacral area improved, no skin breakdown. Discharge Plan - Follow Up Plan Condition: STABLE Disposition: REHAB FACILITY/REHAB UNIT Instructions: Hypothermia, Sepsis, Adult (DC), Upper GI Endoscopy (DC), Percutaneous Endoscopic Gastrostomy (DC), Normocytic Normochromic Anemia (DC), Hypokalemia (DC) Additional Instructions: Patient is stable for discharge as per Dr. Osorio. Pt is to be transferd to [place]. pt is to continue zosyn IVPB until 12/02/18 Patient is to continue Diflucan for yeast noted on endoscopy until 12/05/18. Patient to have PET scan outpatient, which will decide his treatment plan. If results are negative, patient will need chemo and radiation followed by a surgery consult. Patient must follow-up with Dr. Devante Ramírez, heme-oncology. Adult protective services to be contacted by Rehab facility to evaluate safety of living condition. Patient will continue the following medications: Maalox 30 ml PO Q6H PRN hypoglycemia protocol Ferrlecit 125mg PEG daily until 12/02. Fluconazole 100mg PEG daily until 12/05 Folic acid 1mg PO daily Novolg sliding scale Q6H Lactobacillus 1 cap PO Q12H until 01/04/19 Metformin 100mg PO BIDCC Multivitamins 1 tab PO daily Nicotine 21mg/24hr 1 patch daily Zosyn 3.375 IVPB Q6H for 5 days Zoloft 50mg PO daily Ayrl Baby saline 1 ml RODNEY BID Thiamine 100mg PO daily Return to the emergency room for new or worsening symptoms. Referrals: Victorino Price [Staff Provider] - Devante Paredes MD [Staff Provider] - (for outpatient PET scan and esophageal cancer) <Georgette Osorio V - Last Filed: 11/28/18 21:59> Provider - Provider Date of Admission: 11/08/18 14:22 Attending physician: Georgette Osorio, Consults: 11/08/18 15:01 Cardiology Consult Routine Comment: Consulting Provider: Augustus Dodge Consulting Physician: Augustus Dodge Reason for Consult: hx CHF, hx abnormal stress test outpt, dyspnea on exertion 11/08/18 16:27 Wound Care [Nursing Referral for Wound Care] Routine Comment: Physician Instructions: Reason For Exam: wound care eval, please check sacral area 11/09/18 07:51 General Surgery Consult Routine Comment: Consulting Provider: Theron Patterson Consulting Physician: Theron Patterson Reason for Consult: L pleural effusion 11/09/18 10:20 Infectious Disease Consult Routine Comment: Consulting Provider: Jose Bojorquez Consulting Physician: Jose Bojorquez Reason for Consult: code sepsis, unclear etiology 11/11/18 19:32 Psychiatry Consult Routine Comment: Consulting Provider: Lissy Xiao Consulting Physician: Lissy Xiao Reason for Consult: eval for depression, longstanding alcohol/smoker/caregiver stress 11/13/18 08:28 Hematology Oncology Consult Routine Comment: Consulting Provider: Devante Paredes Consulting Physician: Devante Paredes Reason for Consult: 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 11/13/18 11:34 Palliative Care Consult Routine Comment: Consulting Provider: Doris Pillai Physician Instructions: RANDA Sebastian MD Reason For Exam: goals of care discussion 11/22/18 06:34 Pastoral Care Referral Routine Comment: Physician Instructions: Reason For Exam: low mood, motivation Diagnosis - Discharge Diagnosis (1) Sepsis Status: Acute (2) Pleural effusion Status: Acute (3) Anemia Status: Acute (4) Cirrhosis Status: Acute (5) Diabetes mellitus Status: Acute (6) Abnormal CT scan, chest Status: Acute (7) Alcohol use Status: Acute (8) Tobacco use Status: Acute (9) Cachexia Status: Acute (10) Ulcer of sacral region, stage 1 Status: Acute (11) Prophylactic measure Status: Acute Hospital Course - Lab Results Lab Results: Micro Results 11/09/18 10:14 Pleural Cavity Fungal Culture - Preliminary NO FUNGUS GROWTH IN 2 WEEKS. 11/09/18 10:58 Other: Please Indicate Mycobacterial Culture - Preliminary 11/15/18 01:41 Urine Random Urine Culture - Final No Growth (<1,000 CFU/ML) 11/11/18 05:49 Blood Blood Culture - Final NO GROWTH AFTER 5 DAYS 11/11/18 05:49 Blood Gram Stain - Final TEST NOT PERFORMED 11/11/18 05:48 Blood Blood Culture - Final NO GROWTH AFTER 5 DAYS 11/11/18 05:48 Blood Gram Stain - Final TEST NOT PERFORMED 11/13/18 05:47 Nose MRSA Culture - Final MRSA NOT DETECTED 11/08/18 14:12 Blood Blood Culture - Final NO GROWTH AFTER 5 DAYS 11/08/18 14:12 Blood Gram Stain - Final TEST NOT PERFORMED 11/09/18 10:58 Pleural Fluid Gram Stain - Preliminary 11/09/18 10:58 Pleural Fluid Body Fluid Culture - Final Streptococcus anginosus group 11/09/18 10:58 Pleural Fluid Anaerobic Culture - Final NO ANAEROBES ISOLATED. 11/08/18 14:13 Blood Blood Culture - Final Klebsiella Pneumoniae Ssp Pneu 11/08/18 14:13 Blood Gram Stain - Final 11/08/18 14:07 Urine,Catheterized Urine Culture - Final Enterococcus Faecalis 11/08/18 16:07 Naris MRSA Culture (Admit) - Final MRSA NOT DETECTED Most Recent Lab Values WBC 10.2 K/uL (4.8-10.8) 11/26/18 07:53 RBC 3.80 Mil/uL (4.40-5.90) L 11/26/18 07:53 Hgb 10.3 g/dL (12.0-18.0) L 11/26/18 07:53 Hct 31.4 % (35.0-51.0) L 11/26/18 07:53 MCV 82.8 fL (80.0-94.0) 11/26/18 07:53 MCH 27.1 pg (27.0-31.0) 11/26/18 07:53 MCHC 32.8 g/dL (33.0-37.0) L 11/26/18 07:53 RDW 18.4 % (11.5-14.5) H 11/26/18 07:53 Plt Count 183 K/uL (130-400) 11/26/18 07:53 MPV 8.6 fL (7.2-11.7) 11/26/18 07:53 Neut % (Auto) 67.4 % (50.0-75.0) 11/26/18 07:53 Lymph % (Auto) 11.7 % (20.0-40.0) L 11/26/18 07:53 [place] % (Auto) 13.7 % (0.0-10.0) H 11/26/18 07:53 Eos % (Auto) 6.4 % (0.0-4.0) H 11/26/18 07:53 Baso % (Auto) 0.8 % (0.0-2.0) 11/26/18 07:53 Neut # (Auto) 6.9 K/uL (1.8-7.0) 11/26/18 07:53 Lymph # (Auto) 1.2 K/uL (1.0-4.3) 11/26/18 07:53 [place] # (Auto) 1.4 K/uL (0.0-0.8) H 11/26/18 07:53 Eos # (Auto) 0.7 K/uL (0.0-0.7) 11/26/18 07:53 Baso # (Auto) 0.1 K/uL (0.0-0.2) 11/26/18 07:53 Neutrophils % (Manual) 68 % (50-75) 11/22/18 08:21 Band Neutrophils % 13 % (0-2) H* 11/22/18 08:21 Lymphocytes % (Manual) 11 % (20-40) L 11/22/18 08:21 Monocytes % (Manual) 5 % (0-10) 11/22/18 08:21 Eosinophils % (Manual) 3 % (0-4) 11/22/18 08:21 Toxic Granulation Present 11/22/18 08:21 Platelet Estimate Normal (NORMAL) 11/22/18 08:21 Large Platelets Present 11/18/18 08:43 Polychromasia Slight 11/18/18 08:43 Hypochromasia (manual) Slight 11/21/18 06:49 Poikilocytosis (manual Slight 11/21/18 06:49 Anisocytosis (manual) Moderate 11/22/18 08:21 Microcytosis (manual) Moderate 11/22/18 08:21 Target Cells Slight 11/21/18 06:49 Tear Drop Cells Slight 11/21/18 06:49 Ovalocytes Slight 11/22/18 08:21 Smear Path Review 11/08/18 13:39 Retic Count 2.2 % (0.5-1.5) H 11/08/18 18:21 PT 15.2 SECONDS (9.7-12.2) H 11/12/18 06:13 INR 1.4 11/12/18 06:13 APTT 29 SECONDS (21-34) 11/12/18 06:13 pO2 73 mm/Hg (30-55) H 11/08/18 14:55 VBG pH 7.34 (7.32-7.43) 11/08/18 14:55 VBG pCO2 23 mmHg (40-60) L 11/08/18 14:55 VBG HCO3 15.9 mmol/L 11/08/18 14:55 VBG Total CO2 13.1 mmol/L (22-28) L 11/08/18 14:55 VBG O2 Sat (Calc) 94.4 % (40-65) H 11/08/18 14:55 VBG Base Excess -11.4 mmol/L (0.0-2.0) L 11/08/18 14:55 VBG Potassium 2.0 mmol/L (3.6-5.2) L* 11/08/18 14:55 Sodium 135.0 mmol/l (132-148) 11/08/18 14:55 Chloride 104.0 mmol/L (98-107) 11/08/18 14:55 Glucose 244 mg/dl (75-110) H 11/08/18 14:55 Lactate 1.7 mmol/L (0.7-2.1) 11/08/18 14:55 Crit Value Called To Dr. kumar 11/08/18 14:55 Crit Value Called By Afsaneh perez rcp 11/08/18 14:55 Crit Value Read Back Y 11/08/18 14:55 Blood Gas Notified Time 1505 11/08/18 14:55 Sodium 139 mmol/L (132-148) 11/28/18 11:23 Potassium 3.0 mmol/L (3.6-5.2) L 11/28/18 11:23 Chloride 100 mmol/L (98-107) 11/28/18 11:23 Carbon Dioxide 38 mmol/L (22-30) H 11/28/18 11:23 Anion Gap 4 (10-20) L 11/28/18 11:23 BUN 10 mg/dL (9-20) 11/28/18 11:23 Creatinine 0.4 mg/dL (0.8-1.5) L 11/28/18 11:23 Est GFR ( Amer) > 60 11/28/18 11:23 Est GFR (Non-Af Amer) > 60 11/28/18 11:23 POC Glucose (mg/dL) 262 mg/dL (65-110) H 11/28/18 11:24 Random Glucose 255 mg/dL (75-110) H 11/28/18 11:23 Hemoglobin A1c 8.1 % (4.2-6.5) H D 11/09/18 06:02 Lactic Acid 1.2 mmol/L (0.7-2.1) 11/11/18 05:47 Calcium 11.2 mg/dl (8.6-10.4) H 11/28/18 11:23 Phosphorus 2.6 mg/dL (2.5-4.5) 11/28/18 11:23 Magnesium 1.9 mg/dL (1.6-2.3) 11/28/18 11:23 Iron < 10 ug/dL (49-181) L 11/08/18 16:07 TIBC 148 ug/dL (250-450) L 11/08/18 16:07 % Saturation (20-55) 11/08/18 16:07 Transferrin < 80.00 mg/dL (206-381) L 11/08/18 16:07 Ferritin 39.5 ng/mL 11/08/18 16:07 Total Bilirubin 0.4 mg/dL (0.2-1.3) 11/28/18 11:23 AST 12 U/L (17-59) L D 11/28/18 11:23 ALT 13 U/L (21-72) L D 11/28/18 11:23 Alkaline Phosphatase 69 U/L (38-126) 11/28/18 11:23 Ammonia 29 umol/L (9-33) 11/08/18 16:07 Troponin I < 0.0120 ng/mL (0.00-0.120) 11/08/18 13:39 NT-Pro-B Natriuret Pep 421 pg/mL (0-900) 11/08/18 13:39 Total Protein 5.6 g/dL (6.3-8.3) L 11/28/18 11:23 Albumin 2.4 g/dL (3.5-5.0) L 11/28/18 11:23 Globulin 3.2 gm/dL (2.2-3.9) 11/28/18 11:23 Albumin/Globulin Ratio 0.7 (1.0-2.1) L 11/28/18 11:23 Triglycerides 76 mg/dL (0-149) 11/09/18 05:45 Cholesterol < 50 mg/dL (0-199) 11/09/18 05:45 LDL Cholesterol Direct 36 mg/dL (0-129) 11/09/18 05:45 HDL Cholesterol 16 mg/dL (30-70) L 11/09/18 05:45 Vitamin B12 967 pg/mL (239-931) H 11/08/18 16:07 Folate 10.5 ng/mL 11/08/18 16:07 Procalcitonin 0.14 NG/ML (0.19-0.49) L 11/17/18 06:53 Venous Blood Potassium 2.0 mmol/L (3.6-5.2) L* 11/08/18 14:55 Urine Color Yellow (YELLOW) 11/08/18 14:07 Urine Clarity Hazy (Clear) 11/08/18 14:07 Urine pH 5.0 (5.0-8.0) 11/08/18 14:07 Ur Specific [place] 1.022 (1.003-1.030) 11/08/18 14:07 Urine Protein 1+ mg/dL (NEGATIVE) H 11/08/18 14:07 Urine Glucose (UA) 3+ mg/dL (Normal) H 11/08/18 14:07 Urine Ketones 2+ mg/dL (NEGATIVE) H 11/08/18 14:07 Urine Blood Negative (NEGATIVE) 11/08/18 14:07 Urine Nitrate Negative (NEGATIVE) 11/08/18 14:07 Urine Bilirubin Negative (NEGATIVE) 11/08/18 14:07 Urine Urobilinogen Normal mg/dL (0.2-1.0) 11/08/18 14:07 Ur Leukocyte Esterase Neg Fausto/uL (Negative) 11/08/18 14:07 Urine WBC (Auto) 8 /hpf (0-5) H 11/08/18 14:07 Urine RBC (Auto) 2 /hpf (0-3) 11/08/18 14:07 Ur Squamous Epith Cells < 1 /hpf (0-5) 11/08/18 14:07 Urine Bacteria Rare (<OCC) 11/08/18 14:07 Hyaline Casts >20 /lpf (0-2) H 11/08/18 14:07 Fluid Albumin 0.3 g/dL 11/09/18 10:58 Pleural Total Protein <3.0 g/dL 11/09/18 10:58 Pleural LDH 1113 U/L 11/09/18 10:58 Pleural Glucose <10 mg/dL L 11/09/18 10:58 Stool Occult Blood Negative (NEGATIVE) 11/08/18 13:39 Vancomycin Trough < 5.0 ug/mL (5.0-10.0) L 11/14/18 07:50 Alcohol, Quantitative < 10 mg/dl (0-10) 11/08/18 16:07 B-Hydroxybutyrate 4.94 mM (0.02-0.27) H 11/08/18 16:07 Hepatitis A IgM Ab Negative (NEGATIVE) 11/08/18 16:07 Hep Bs Antigen Negative (NEGATIVE) 11/08/18 16:07 Hep B Core IgM Ab Negative (NEGATIVE) 11/08/18 16:07 Hepatitis C Antibody Negative (NEGATIVE) 11/08/18 16:07 Blood Type AB POSITIVE 11/23/18 10:59 Blood Type Confirm AB POSITIVE 11/08/18 13:39 Antibody Screen Negative 11/23/18 10:59 Attending/Attestation - Attestation I have personally seen and examined this patient.: Yes I have fully participated in the care of the patient.: Yes I have reviewed all pertinent clinical information, including history, physical exam and plan: Yes Notes (Text): Patient seen, examined and case discussed with medical insurance clerk. We have received approval for SRIKANTH at [facility], Patient is tolerating diet via peg supplemented with clear liquids and protein supplements. Patient to finish Zosyn 3.375 g IV Q8H until 12/02/18 last dose. Patient to have PICC line removed upon completion of IV antibiotics. Patient to complete Diflucan 100mg peg daily until 12/05/18 for yeast noted on EGD. Patient to follow-up with Dr. Devante Paredes (heme-onc) who saw patient during hospitalization for the squamous cell carcinoma for esophageal mass for outpatient pet scan and further management. Patient advised to follow-up with Dr. Price for follow-up post hospitalization; discussed with PMD; requesting for Dr. Crowley to care for patient while at [facility]. Discharge Diagnoses: Sepsis-->Resolved Urinary tract infection-->Resolved Bacteremia-->resolved Empyema-->resolved * Code sepsis 11/08/18 * Infectious Disease (Dr. Bojorquez) on board-->help appreciated * Criteria: leukocytosis, hypotension, bandemia, hypothermia, source of infections: empyema, uti, bacteremia * Lactic acid: 3.5-->1.7 on 11/08/18 * elevated procalcitonin: 1.49-->0.83 on 11/11/18 * Blood culture (11/08/18): Klebsiella pneumoniae * Sensitive to Zosyn with LUPE of less than 4 * Repeat Blood culture (11/11/18): finalized as negative at 5 days * Urine culture (11/08/18): Enterococcus Faecalis * Repeat Urine Culture (11/15/18): NO growth * MRSA (11/08/18): not detected * Pleural fluid (11/09/18): no acid fast bacilli * Pleural fluid (11/09/18): Streptococcus anginosus which is sensitive to Vancomycin which the patient was restarted on 11/11/18 * Chest xray (11/08/18): layering left pleural effusion and/or consolidation * Chest xray (11/09/18): slight increase in left perihilar/basilar opacity. small left pleural effusion, grossly unchanged * Iv abx: * Zosyn 3.375 g IV Q6H (active since 11/08/18) to end 12/02/18 * Vancomycin 1 gram IV Q12 (11/08/18 through 11/11/18): spoke with ID Dr. Bojorquez 11/12/18: Zosyn will cover the Klebsiella, Streptococcus and the Enter ococcus * CT Chest 11/12/18: moderate left sided hydropneumothorax, moderate right pleural effusion, bilateral lower lobe consolidations, mediastinal lymphadenopathy, moderate hiatal hernia with gastric wall thickening Empyema; Loculated Left Pleural effusion-->resolved * Thoracic Surgery (Dr. Bro) on board-->help appreciated * VATS procedure cancelled on 11/12/18 * Chest xray (11.08.18): layering left pleural effusion and/or consolidation * Chest xray (11/09/18): slight increase in left perihilar/basilar opacity. small left pleural effusion, grossly unchanged * S/P IR thoracentesis 11/09/18; placement of pigtail catheter * Pleural fluid (11/09/18): Streptococcus anginosus which is sensitive to Vancomycin which the patient was restarted on 11/11/18 * Echocardiogram (08/20/18): left ventricular function is normal, left ventricular ejection fraction is within the the normal range about 55%, mild mitral valve regurgitation noted * Chest tube removed during hospitalization; patient is on IV abx Anemia, Acute on Chronic * Thoracic Surgery (Dr. Bro) on board-->help appreciated * GI (Dr. Aaron) on board-->help appreciated * Hem-onc (Dr. Bryan Paredes) on board-->help appreciated * Likely secondary to the suspicious mass found on EGD performed on 11/12/18? * On admission: hgb 10-->5 * blood transfusion consent obtained by resident 11/08/18 * given 3 units of PRBC overnight night and 1 FFP unit * rectal negative * ferritin low * iron low: will not repleat at this time considering multiple infections as documented in Assessment/Plan #1 * tibc: 148 low * transferrin low * Reticulocyte count: 2.2--> reticulocyte index: 0.12-->hypoproliferation <2 * Folate low * B12: 967 (low) * Occult blood: negative * CT Chest/Abdomen/pelvis (11/08/18): ascites, anasarca, interval loculated left pleural effusion, appearance of GE junction is indeterminate here a hiatal hernia vs mass * Patient has required blood transfusions during hospitalization; placed on IV ferricelt from 11/24-/12/02/18 per heme oncology Cirrhosis * GI (Dr. Aaron) on board-->help appreciated * CT Chest/Abdomen/pelvis IV contrast (11/08/18): prior amount of ascites and anasarca has improved. further findings per report * Abdominal US (08/18/18): limited study. echogenic liver may be seen in hepatic parenchymal disease or fatty infiltrate. nodular hepatic contour. cholelithiasis. gallbladder wall thickening/pericholecystic edema. negative sonographic Cespedes's small abdominal ascites * Hepatitis Panel negative * Blood alcohol <10 * Patient notes he has drinking 3 shots of vodka X 30 years. * patient is aware he has cirrhosis; and needs to stop his alcohol use Diabetes mellitus 2 * Hgba1c: 8.1 * RISS Q6H * Metformin 1000mg BIDCC * Accuchecks Q6H GE junction Mass Squamous Cell Carcinoma * Thoracic Surgery (Dr. Bro) on board-->help appreciated * GI (Dr. Aaron) on board-->help appreciated * hematology-oncology (Dr Bryan Paredes) on board-->help appreciated * CT Chest/Abdomen/pelvis (11/08/18): ascites, anasarca, interval loculated left pleural effusion, appearance of GE junction is indeterminate here a hiatal her fiona vs mass * Patient is S/P Upper EGD on 11/12/18 and pathology from biopsy has confirmed Poorly Differentiated Squamous Cell CA * Heme/Oncologist Dr. Melody Paredes recommendation: outpatient PET Scan for staging and if NO mets then Chemo+Radiation and Surgical evaluation Adjustment disorder with depressed mood * Psych consult - Dr Xiao/Wiliam * d/c onZoloft to 50mg Qd and remeron to 30mg HS and follow-up with psych on discharge Alcohol use * Ciwa protocol * Aspiration precautions * Seizure precautions * Folic acid 1mg PO Daily * MVI tab PO daily * Thiamine 100mg PO daily * 3 shots of vodka X 30 years history * Monitor for withdrawal; patient is not currently in withdrawal * Abdominal US (08/18/18): limited study. Echogenic liver may be seen in hepatic parenchymal disease or fatty infiltrate. Nodular hepatic contour. cholelithiasis. Gallbladder wall thickening/pericholecystic edema. Negative sonographic Cespedes's small abdominal ascites Tobacco use * 1 ppd X30 years * Nicotine patch daily * Advised smoking cessation Cachexia * Related to alcohol, smoking, malnutrition, AND likely related to suspicious GE mass * Patient gaining weight since peg placement about 19lbs Ulcer of sacral region, stage 1 * Wound Care Nurse Joseph Amaya is on board: [place] and continue to turn patient every 2 hours * 11/23/18- erythema improved, no skin breakdown. Prophylactic measure * PT/OT eval * Protonix 40mg IV q12H * Maalox q6H PRN for indigestion * DNI/DNR * Lovenox 40mg subq daily- on hold * SCDs * Bilateral LE Venous Doppler 11/12/18: NO DVTs * Liquid diet - ensure clear 2/day - apple flavor Disposition: As per ID, continue IV abx for total 14 days minimum (12/02/18) and antifungal until 12/05/18. Patient will need to follow-up with heme onc for PET scan and possible surgery evaluation. Patient's sister Korin informed at time of discharge to [facility]. Patient to follow-up with Dr. Price upon discharge, his PMD.
[2018-11-28] MEDS ORDERED: Potassium Chloride 20 mEq/15 ml LIQ UD PO ONE ×2 (15:48→16:30)
== END 2018-11-28 18:09 | DRG 871 ==
LOC: C.ER 12:39 → C.9E 14:22 → C.9I 14:31 → C.6T 11-13 22:14 → UNDODISIN 11-15 13:30
PROVIDERS: ADMIT Hospitalist; ATTEND Hospitalist
PROC: 30233N1 Transfusion of Nonautologous Red Blood Cells into Peripheral Vein, Percutaneous Approach (ICD-10-PCS; 2018-11-08)
PROC: 0W9B30Z Drainage of Left Pleural Cavity with Drainage Device, Percutaneous Approach (ICD-10-PCS; principal; 2018-11-09)
PROC: BB4BZZZ Ultrasonography of Pleura (ICD-10-PCS; 2018-11-09)
PROC: 30233L1 Transfusion of Nonautologous Fresh Plasma into Peripheral Vein, Percutaneous Approach (ICD-10-PCS; 2018-11-09)
PROC: 0DB48ZX Excision of Esophagogastric Junction, Via Natural or Artificial Opening Endoscopic, Diagnostic (ICD-10-PCS; 2018-11-12)
PROC: 0DH68UZ Insertion of Feeding Device into Stomach, Via Natural or Artificial Opening Endoscopic (ICD-10-PCS; 2018-11-15)
DX: A41.50 Gram-negative sepsis, unspecified (principal); J86.9 Pyothorax without fistula; C16.0 Malignant neoplasm of cardia; B37.81 Candidal esophagitis; D62 Acute posthemorrhagic anemia; D68.9 Coagulation defect, unspecified; E46 Unspecified protein-calorie malnutrition; J90 Pleural effusion, not elsewhere classified; N39.0 Urinary tract infection, site not specified; R64 Cachexia; B96.1 Klebsiella pneumoniae [K. pneumoniae] as the cause of diseases classified elsewhere; B95.2 Enterococcus as the cause of diseases classified elsewhere; E11.65 Type 2 diabetes mellitus with hyperglycemia; E87.6 Hypokalemia; F43.21 Adjustment disorder with depressed mood; I50.9 Heart failure, unspecified; J34.1 Cyst and mucocele of nose and nasal sinus; K59.09 Other constipation; K80.20 Calculus of gallbladder without cholecystitis without obstruction; K70.31 Alcoholic cirrhosis of liver with ascites; L89.151 Pressure ulcer of sacral region, stage 1; K29.70 Gastritis, unspecified, without bleeding; R65.20 Severe sepsis without septic shock; F10.10 Alcohol abuse, uncomplicated; F17.210 Nicotine dependence, cigarettes, uncomplicated; Z53.9 Procedure and treatment not carried out, unspecified reason; Z66 Do not resuscitate; Z51.5 Encounter for palliative care; Z79.84 Long term (current) use of oral hypoglycemic drugs; Z87.01 Personal history of pneumonia (recurrent); Z87.11 Personal history of peptic ulcer disease

== ENCOUNTER 2018-12-11 01:42 | Inpatient (IN) | payer BC ==
[2018-12-11 01:43] VITALS: BMI 16.5
--- NOTE | 2018-12-11 02:07 | C.PDOC ---
History Of Present Illness sent from in for low hemoglobin. Patient has no complaints. No f/c/n/v. Has hx of recently diagnosed poorly Differentiated Squamous Cell CA Time Seen by Provider: 12/11/18 02:06 Chief Complaint (Nursing): Abnormal Labs History Per: Patient History/Exam Limitations: no limitations Onset/Duration Of Symptoms: Days Current Symptoms Are (Timing): Still Present Severity: Moderate Pain Scale Rating Of: 4 Reports Recently: Seen In ED, Treated By A Physician, Hospitalized Recent travel outside of the [place]: No Additional History Per: Patient Past Medical History Reviewed: Historical Data, Nursing Documentation, Vital Signs - Medical History PMH: Anemia, Diabetes, Gastrointestinal Ulcer, Pneumonia Denies: Deep Vein Thrombosis, Chronic Kidney Disease Surgical History: Denies: Pacemaker - [facility] Procedures DRAINAGE OF L PLEURAL CAV WITH DRAIN DEV, PERC APPROACH (11/08/18) EXCISION OF ESOPHAGOGASTRIC JUNCTION, ENDO, DIAGN (11/08/18) INSERTION OF FEEDING DEVICE INTO STOMACH, ENDO (11/08/18) INSERTION OF INFUSION DEV INTO SUP VENA CAVA, PERC APPROACH (08/17/18) TRANSFUSE NONAUT FRESH PLASMA IN PERIPH VEIN, PERC (11/08/18) TRANSFUSE NONAUT RED BLOOD CELLS IN PERIPH VEIN, PERC (11/08/18) ULTRASONOGRAPHY OF PLEURA (11/08/18) Family History: States: No Known Family Hx - Social History Hx Alcohol Use: Yes Hx Substance Use: No - Immunization History Hx Tetanus Toxoid Vaccination: No Hx Influenza Vaccination: No Hx Pneumococcal Vaccination: No Review Of Systems Constitutional: Negative for: Fever, Chills Eyes: Negative for: Vision Change ENT: Negative for: Throat Pain Cardiovascular: Negative for: Chest Pain Respiratory: Negative for: Shortness of Breath Gastrointestinal: Negative for: Nausea, Abdominal Pain Genitourinary: Negative for: Dysuria Musculoskeletal: Negative for: Back Pain Skin: Negative for: Rash Neurological: Negative for: Weakness Psych: Negative for: Anxiety Physical Exam - Physical Exam Appears: Non-toxic, No Acute Distress Skin: Warm, Dry, Pale Head: Normacephalic Eye(s): bilateral: Normal Inspection Oral Mucosa: Moist Neck: Supple Chest: Symmetrical Cardiovascular: Rhythm Regular Respiratory: No Rales, No Rhonchi, No Wheezing Gastrointestinal/Abdominal: Soft, No Tenderness, No Distention Rectal: Heme Positive, No Hemorrhoids, No Tenderness Back: No CVA Tenderness Extremity: Normal ROM, Other (right picc line) Extremity: Bilateral: Atraumatic Neurological/Psych: Oriented x3 Gait: Unable To Assess ED Course And Treatment - Laboratory Results Result Diagrams: 12/11/18 02:40 12/11/18 02:40 ECG: Interpreted By Me, Viewed By Me ECG Rhythm: Nonspecific Changes O2 Sat by Pulse Oximetry: 96 Pulse Ox Interpretation: Normal - Radiology CXR: Interpreted by Me, Viewed By Me CXR Interpretation: Yes: Other (mildly improved from 11/17/18). No: Infiltrates, Fracture, Pnemothorax Disposition Discussed With Dr.: Rodríguez Latif Comment: the pt on his service and took over the care at 4:26 AM Doctor Will See Patient In The: ED Counseled Patient/Family Regarding: Studies Performed, Diagnosis - Disposition Disposition: HOSPITALIZED Disposition Time: 02:07 Condition: FAIR Forms: [facility] ([place]) - POA Present On Arrival: Poor Glycemic Control - Clinical Impression Clinical Impression: GI bleed, Severe anemia Decision To Admit - Pt Status Changed To: Hospital Disposition Of: Inpatient - Admit Certification Admit to Inpatient:: After my assessment, the patient will require hospitalization for at least two midnights. This is because of the severity of symptoms shown, intensity of services needed, and/or the medical risk in this patient being treated as an outpatient. - InPatient: Physician Admission Certification: I certify that this patient requires 2 or more midnights of care for the following reason:: After my assessment, the patient will require hospitalization for at least two midnights. This is because of the severity of symptoms shown, intensity of services needed, and/or the medical risk in this patient being treated as an outpatient. - . Bed Request Type: Regular Admitting Physician: Rodríguez Latif Patient Diagnosis: GI bleed, Severe anemia
[2018-12-11] MEDS ORDERED: Pantoprazole 80 MG in Sodium Chloride 0.9% 100 ML IV STA (02:08)
[2018-12-11] MEDS ORDERED: Sodium Chloride 0.9% 1,000 ML IV ONE ×2 (02:08→05:46)
[2018-12-11 02:43] LABS: BASO # 0.1 K/uL (0.0-0.2); BASO % 0.8 % (0.0-2.0); EOS # 0.4 K/uL (0.0-0.7); EOS % 3.5 % (0.0-4.0); LYMPH % 8.9 % (20.0-40.0); MEAN CORPUSCULAR HEMOGLOBIN 26.9 pg (27.0-31.0); MEAN CORPUSCULAR HGB CONC 31.6 g/dL (33.0-37.0); MONO # 1.1 K/uL (0.0-0.8); MONO % 9.5 % (0.0-10.0); NEUT # 8.9 K/uL (1.8-7.0); NEUT % 77.3 % (50.0-75.0); PLATELET COUNT 256 K/uL (130-400); RBC 1.89 Mil/uL (4.40-5.90); RED CELL DISTRIBUTION WIDTH 21.4 % (11.5-14.5); WHITE BLOOD COUNT 11.5 K/uL (4.8-10.8)
[2018-12-11] MEDS ORDERED: Sodium Chloride 0.9% 1,000 ML ONE (02:56)
[2018-12-11 03:04] LABS: HEMOGLOBIN 5.1 g/dL (12.0-18.0)
[2018-12-11 04:15] LABS: INR 1.3; PROTHROMBIN TIME 14.7 SECONDS (9.7-12.2)
[2018-12-11 04:20] LABS: ALB/GLOB RATIO 0.7 (1.0-2.1); ALBUMIN 2.1 g/dL (3.5-5.0); ALT/SGPT 28 U/L (21-72); AST/SGOT 10 U/L (17-59); BLOOD UREA NITROGEN 21 mg/dL (9-20); CALCIUM 9.8 mg/dl (8.6-10.4); GFR NON-AFRICAN AMERICAN > 60
--- NOTE | 2018-12-11 05:26 | CP.PCM.HP ---
<Carisa Mayes - Last Filed: 12/11/18 06:42> History of Present Illness - History of Present Illness History of Present Illness: H&P for Dr. 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 He admits to feeling lightheaded and short of breath when he stands or exerts himself in any way. He states he has been getting physical therapy at [facility] and he has been ambulating with a walker. He states he has had 3 week history of soft watery malodorous brown stools since his last admission here. He states he lost about 60lbs over the past year. He denies fevers, chills, headaches, vision or hearing change, chest pain, palpitations, cough, abdominal pain, nausea, vomiting, dysuria, hematuria, leg pain or swelling, rashes, easy bruising or recent travel. He was recently admitted here from 11/08/18 and discharged on 11/28/18 for sepsis with UTI, bacteremia and empyema/left loculated pleural effusion for which he was treated with Zosyn and Vancomycin. He had a pigtail catheter placed by IR status post thoracentesis of pleural effusion. 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 no illicit drug use. 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 Not , has no children. Home meds: as per chart Allergies: Flaxseed - throat closes POLST DNR/DNI from last admission - patient confirmed DNR/DNI status Health care proxy: Sister Korin Horne [phone] PMD: Dr. Price Present on Admission - Present on Admission Any Indicators Present on Admission: No Review of Systems - Constitutional Constitutional: absent: Chills, Fever, Headache - EENT Eyes: absent: Change in Vision Ears: absent: Decreased Hearing Nose/Mouth/Throat: absent: Odynophagia, Sore Throat - Cardiovascular Cardiovascular: absent: Chest Pain, Dyspnea, Leg Edema, Syncope - Respiratory Respiratory: absent: Cough, Dyspnea - Gastrointestinal Gastrointestinal: Diarrhea. absent: Abdominal Pain, Constipation, Nausea, Vomiting - Genitourinary Genitourinary: absent: Dysuria, Hematuria - Musculoskeletal Musculoskeletal: absent: Numbness, Tingling - Integumentary Integumentary: Skin Ulcer (sacral ) - Neurological Neurological: Weakness. absent: Confusion - Psychiatric Psychiatric: absent: Homicidal Ideation, Suicidal Ideation Past Patient History - Past Medical History & Family History Past Medical History?: Yes - Past Social History Smoking Status: Light Smoker < 10 Cigarettes Daily - CARDIAC Hx Pacemaker: No - PULMONARY Hx Pneumonia: Yes - NEUROLOGICAL Hx Neurological Disorder: No - HEENT Hx HEENT Problems: No - RENAL Hx Chronic Kidney Disease: No - ENDOCRINE/METABOLIC Hx Endocrine Disorders: Yes Hx Diabetes Mellitus Type 2: Yes - HEMATOLOGICAL/ONCOLOGICAL Hx Anemia: Yes - INTEGUMENTARY Hx Dermatological Problems: No - MUSCULOSKELETAL/RHEUMATOLOGICAL Hx Musculoskeletal Disorders: No Hx Falls: No - GASTROINTESTINAL Hx Gastrointestinal Disorders: Yes Other/Comment: gastric ca. g tube - GENITOURINARY/GYNECOLOGICAL Hx Genitourinary Disorders: No - PSYCHIATRIC Hx Substance Use: No - SURGICAL HISTORY Hx Mastectomy: No Other/Comment: g tube - ANESTHESIA Hx Anesthesia: Yes Hx Anesthesia Reactions: No Hx Malignant Hyperthermia: No Meds Allergies/Adverse Reactions: Allergies Allergy/AdvReac Type Severity Reaction Status Date / Time flaxseed Allergy SHORTNESS Verified 12/11/18 02:15 OF BREATH Physical Exam - Constitutional Appears: Cachectic Additional comments: Patient appears pale, weak, with diffuse muscle wasting - Head Exam Head Exam: ATRAUMATIC, NORMOCEPHALIC - Eye Exam Eye Exam: EOMI, PERRL Additional comments: Pale conjunctiva - ENT Exam ENT Exam: Mucous Membranes Dry - Neck Exam Neck exam: Positive for: Full Rom, Tenderness (Mild midline tendnerness, from herniated disks ). Negative for: Lymphadenopathy, Thyromegaly - Respiratory Exam Respiratory Exam: Clear to Auscultation Bilateral, NORMAL BREATHING PATTERN. absent: Rales, Rhonchi, Wheezes, Respiratory Distress, Stridor - Cardiovascular Exam Cardiovascular Exam: REGULAR RHYTHM, +S1, +S2. absent: Gallop, Rubs, Systolic Murmur - GI/Abdominal Exam GI & Abdominal Exam: Hyperactive Bowel Sounds, Soft. absent: Distended, Firm, Guarding, Hernia, Rebound, Rigid Additional comments: Peg tube in place, no evidence of erythema around site, no purulent discharge - Extremities Exam Extremities exam: Positive for: pedal pulses present. Negative for: calf tenderness, pedal edema - Back Exam Back exam: absent: CVA tenderness (L), CVA tenderness (R) - Neurological Exam Neurological exam: Alert, CN II-XII Intact, Oriented x3 - Psychiatric Exam Psychiatric exam: Normal Affect, Normal Mood - Skin Additional comments: Sacral Ulcer Stage 2 Results - Vital Signs Recent Vital Signs: Last Vital Signs Temp 98.2 F 12/11/18 05:24 Pulse 81 12/11/18 05:24 Resp 16 12/11/18 05:24 BP 108/63 12/11/18 05:24 Pulse Ox 98 12/11/18 05:24 - Labs Result Diagrams: 12/11/18 02:40 12/11/18 02:40 Labs: Laboratory Results - last 24 hr 12/11/18 12/11/18 12/11/18 02:02 02:40 02:40 WBC 11.5 H RBC 1.89 L Hgb 5.1 L* D Hct 16.1 L MCV 85.0 D MCH 26.9 L MCHC 31.6 L RDW 21.4 H Plt Count 256 MPV 9.0 Neut % (Auto) 77.3 H Lymph % (Auto) 8.9 L [place] % (Auto) 9.5 Eos % (Auto) 3.5 Baso % (Auto) 0.8 Neut # (Auto) 8.9 H Lymph # (Auto) 1.0 [place] # (Auto) 1.1 H Eos # (Auto) 0.4 Baso # (Auto) 0.1 PT 14.7 H INR 1.3 APTT 22.0 Sodium Potassium Chloride Carbon Dioxide Anion Gap BUN Creatinine Est GFR ( Amer) Est GFR (Non-Af Amer) POC Glucose (mg/dL) 296 H Random Glucose Calcium Total Bilirubin AST ALT Alkaline Phosphatase Total Protein Albumin Globulin Albumin/Globulin Ratio Stool Occult Blood Blood Type Antibody Screen 12/11/18 12/11/18 12/11/18 02:40 03:18 04:12 WBC RBC Hgb Hct MCV MCH MCHC RDW Plt Count MPV Neut % (Auto) Lymph % (Auto) [place] % (Auto) Eos % (Auto) Baso % (Auto) Neut # (Auto) Lymph # (Auto) [place] # (Auto) Eos # (Auto) Baso # (Auto) PT INR APTT Sodium 133 Potassium 4.5 Chloride 100 Carbon Dioxide 29 Anion Gap 9 L BUN 21 H Creatinine 0.5 L Est GFR ( Amer) > 60 Est GFR (Non-Af Amer) > 60 POC Glucose (mg/dL) Random Glucose 256 H Calcium 9.8 Total Bilirubin 0.4 AST 10 L ALT 28 Alkaline Phosphatase 166 H D Total Protein 4.9 L Albumin 2.1 L Globulin 2.8 Albumin/Globulin Ratio 0.7 L Stool Occult Blood Positive H Blood Type AB POSITIVE Antibody Screen Negative Assessment & Plan - Assessment and Plan (Free Text) Assessment: 58 year old male with history of 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 On Peg feeds: Jevity 1.5 237 ml 6 times daily with 150ml water flushes Q4 hours As per patient, he never followed up for PET scan outpatient History of DM Low dose ISS Hold Metformin for now Stage 2 sacral ulcer Turn Q2 Wound care referred Apply [facility] to area Adjustment disorder with depressed mood Patient on Zoloft and Remeron via PEG Not currently suicidal or homicidal History of alcohol abuse Patient has not used alcohol since he has been in facility Monitor for DTs History of nicotine dependence Nicotine patch Prophylaxis Hold DVT prophylaxis for now Protonix drip NPO DNR/DNI Case discussed with Dr. Bhavya Mayes, PGY1 <Rodríguez Latif - Last Filed: 12/11/18 06:45> Results - Vital Signs Recent Vital Signs: Last Vital Signs Temp 98.1 F 12/11/18 06:18 Pulse 84 12/11/18 06:18 Resp 22 12/11/18 06:18 BP 110/69 12/11/18 06:18 Pulse Ox 98 12/11/18 06:18 - Labs Result Diagrams: 12/11/18 02:40 12/11/18 02:40 Labs: Laboratory Results - last 24 hr 12/11/18 12/11/18 12/11/18 02:02 02:40 02:40 WBC 11.5 H RBC 1.89 L Hgb 5.1 L* D Hct 16.1 L MCV 85.0 D MCH 26.9 L MCHC 31.6 L RDW 21.4 H Plt Count 256 MPV 9.0 Neut % (Auto) 77.3 H Lymph % (Auto) 8.9 L [place] % (Auto) 9.5 Eos % (Auto) 3.5 Baso % (Auto) 0.8 Neut # (Auto) 8.9 H Lymph # (Auto) 1.0 [place] # (Auto) 1.1 H Eos # (Auto) 0.4 Baso # (Auto) 0.1 Neutrophils % (Manual) 77 H Band Neutrophils % 3 H Lymphocytes % (Manual) 9 L Monocytes % (Manual) 10 Eosinophils % (Manual) 1 Platelet Estimate Normal Hypochromasia (manual) Moderate Poikilocytosis (manual Slight Anisocytosis (manual) Slight PT 14.7 H INR 1.3 APTT 22.0 Sodium Potassium Chloride Carbon Dioxide Anion Gap BUN Creatinine Est GFR ( Amer) Est GFR (Non-Af Amer) POC Glucose (mg/dL) 296 H Random Glucose Calcium Total Bilirubin AST ALT Alkaline Phosphatase Total Protein Albumin Globulin Albumin/Globulin Ratio Stool Occult Blood Blood Type Antibody Screen 12/11/18 12/11/18 12/11/18 02:40 03:18 04:12 WBC RBC Hgb Hct MCV MCH MCHC RDW Plt Count MPV Neut % (Auto) Lymph % (Auto) [place] % (Auto) Eos % (Auto) Baso % (Auto) Neut # (Auto) Lymph # (Auto) [place] # (Auto) Eos # (Auto) Baso # (Auto) Neutrophils % (Manual) Band Neutrophils % Lymphocytes % (Manual) Monocytes % (Manual) Eosinophils % (Manual) Platelet Estimate Hypochromasia (manual) Poikilocytosis (manual Anisocytosis (manual) PT INR APTT Sodium 133 Potassium 4.5 Chloride 100 Carbon Dioxide 29 Anion Gap 9 L BUN 21 H Creatinine 0.5 L Est GFR ( Amer) > 60 Est GFR (Non-Af Amer) > 60 POC Glucose (mg/dL) Random Glucose 256 H Calcium 9.8 Total Bilirubin 0.4 AST 10 L ALT 28 Alkaline Phosphatase 166 H D Total Protein 4.9 L Albumin 2.1 L Globulin 2.8 Albumin/Globulin Ratio 0.7 L Stool Occult Blood Positive H Blood Type AB POSITIVE Antibody Screen Negative Assessment & Plan - Date & Time Date: 12/11/18 (I have seen and examined the patient. I agree with the findings and plan of care as documented by Dr. Mayes. Patient with GI bleed and severe anemia. History of Gastoesophageal cancer. Transfuse PRBCs. Monitor hemodynamic stability. GI consult. Monitor for acute changes.) Time: 06:43 Attending/Attestation - Attestation I have personally seen and examined this patient.: Yes I have fully participated in the care of the patient.: Yes I have reviewed all pertinent clinical information: Yes
[2018-12-11] MEDS ORDERED: Pantoprazole 80 MG in Sodium Chloride 0.9% 100 ML IVP SCH (05:45)
[2018-12-11 05:59] LABS: ANISOCYTOSIS SLIGHT; BANDS 3 % (0-2); EOSINOPHIL 1 % (0-4); HYPOCHROMIC MODERATE; LYMPHOCYTE 9 % (20-40); MONOCYTE 10 % (0-10); NEUTROPHIL 77 % (50-75); PLATELET ESTIMATE NORMAL (NORMAL); POIKILOCYTOSIS SLIGHT; TOTAL CELLS COUNTED 100
[2018-12-11] MEDS ORDERED: Glucagon Recombinant 1 mg Inj IM PRN (06:10)
[2018-12-11] MEDS ORDERED: Dextrose 50% SYRINGE Inj (50 ml) IV PRN (06:10)
[2018-12-11 06:49] LABS: URINE BACTERIA RARE (<OCC); URINE BILIRUBIN NEGATIVE (NEGATIVE); URINE BLOOD NEGATIVE (NEGATIVE); URINE CLARITY Clear (Clear); URINE COLOR Yellow (YELLOW); URINE GLUCOSE (UA) 1+ mg/dL (Normal); URINE LEUKOCYTE ESTERASE NEG Leu/uL (Negative); URINE PROTEIN NEGATIVE (NEGATIVE)
[2018-12-11] MEDS ORDERED: (Novolin R) Insulin Human Regular 100 units/ml vial SC SCH (07:30)
--- NOTE | 2018-12-11 08:48 | CP.PCM.CON ---
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 He reports feeling lightheaded and weak when he stands or exerts himself in any way. He denies any rectal bleeding, melena or hematochezia. Pt reports the PEG is being used with no issues at the NC and is tolerating liquids by mouth. He denies fevers, chills, chest pain, palpitations, abdominal pain, nausea, vomiting. Per patient plan by Oncology was an outpatient PET scan and discussion about further treatment options including radiation therapy but pt needs to improve nutritional status as well. 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, alcoholic cirrhosis PSH: Peg tube, inguinal hernia SH: Former smoker - 1ppd x30 years, Former alcohol abuse - 30 year history, no illicit drug use FH: Denies any malignancy Past Patient History - Past Medical History & Family History Past Medical History?: Yes - Past Social History Smoking Status: Light Smoker < 10 Cigarettes Daily - CARDIAC Hx Pacemaker: No - PULMONARY Hx Pneumonia: Yes - NEUROLOGICAL Hx Neurological Disorder: No - HEENT Hx HEENT Problems: No - RENAL Hx Chronic Kidney Disease: No - ENDOCRINE/METABOLIC Hx Endocrine Disorders: Yes Hx Diabetes Mellitus Type 2: Yes - HEMATOLOGICAL/ONCOLOGICAL Hx Anemia: Yes - INTEGUMENTARY Hx Dermatological Problems: No - MUSCULOSKELETAL/RHEUMATOLOGICAL Hx Musculoskeletal Disorders: No Hx Falls: No - GASTROINTESTINAL Hx Gastrointestinal Disorders: Yes Other/Comment: gastric ca. g tube - GENITOURINARY/GYNECOLOGICAL Hx Genitourinary Disorders: No - PSYCHIATRIC Hx Substance Use: No - SURGICAL HISTORY Hx Mastectomy: No Other/Comment: g tube - ANESTHESIA Hx Anesthesia: Yes Hx Anesthesia Reactions: No Hx Malignant Hyperthermia: No Meds Allergies/Adverse Reactions: Allergies Allergy/AdvReac Type Severity Reaction Status Date / Time flaxseed Allergy SHORTNESS Verified 12/11/18 02:15 OF BREATH - Medications Medications: Current Medications Dextrose (Dextrose 50% Inj) 0 ml IV STAT PRN; Protocol PRN Reason: Hypoglycemia Protocol Dextrose (Glutose 15) 0 gm PO ONCE PRN; Protocol PRN Reason: Hypoglycemia Protocol Glucagon (Glucagen Diagnostic Kit) 0 mg IM STAT PRN; Protocol PRN Reason: Hypoglycemia Protocol Pantoprazole Sodium 80 mg/ (Sodium Chloride) 100 mls @ 10 mls/hr IVP .Q10H EDER Last Admin: 12/11/18 06:52 Dose: 10 mls/hr Sodium Chloride (Sodium Chloride 0.9%) 1,000 mls @ 100 mls/hr IV .Q10H ONE Stop: 12/11/18 15:45 Last Admin: 12/11/18 06:53 Dose: 100 mls/hr Dextrose (Dextrose 5% In Water 1000 Ml) 1,000 mls @ 0 mls/hr IV .Q0M PRN; Protocol PRN Reason: Hypoglycemia Protocol Insulin Human Regular (Novolin R) 0 unit SC ACHS EDER; Protocol Last Admin: 12/11/18 08:33 Dose: Not Given Nicotine (Nicoderm Cq) 1 patch TD DAILY EDER Physical Exam - Constitutional Appears: Non-toxic, No Acute Distress, Cachectic, Chronically Ill - Head Exam Head Exam: ATRAUMATIC, NORMAL INSPECTION, NORMOCEPHALIC - Eye Exam Eye Exam: EOMI, Normal appearance, PERRL - ENT Exam ENT Exam: Mucous Membranes Dry - Neck Exam Neck exam: Positive for: Normal Inspection - Respiratory Exam Respiratory Exam: Clear to Auscultation Bilateral, NORMAL BREATHING PATTERN - Cardiovascular Exam Cardiovascular Exam: REGULAR RHYTHM, RRR, +S1, +S2 - GI/Abdominal Exam GI & Abdominal Exam: Normal Bowel Sounds, Soft. absent: Distended, Firm, Guarding, Organomegaly, Tenderness Additional comments: PEG site dry clean, intact, no signs of infection PEG irrigated/flushed +hematin - Rectal Exam Rectal Exam: NORMAL INSPECTION. absent: Black Stool, Bloody Stool, Hemorrhoids Additional comments: Brown stool - Extremities Exam Extremities exam: Positive for: full ROM, normal inspection - Back Exam Back exam: NORMAL INSPECTION - Neurological Exam Neurological exam: Alert, Oriented x3 - Psychiatric Exam Psychiatric exam: Normal Affect, Normal Mood - Skin Skin Exam: Dry, Intact, Pallor, Warm Results - Vital Signs Recent Vital Signs: Last Vital Signs Temp 98.4 F 12/11/18 08:39 Pulse 78 12/11/18 08:39 Resp 17 12/11/18 08:39 BP 125/73 12/11/18 08:39 Pulse Ox 97 12/11/18 08:39 - Labs Result Diagrams: 12/11/18 02:40 12/11/18 02:40 Labs: Laboratory Results - last 24 hr 12/11/18 12/11/18 12/11/18 02:02 02:40 02:40 WBC 11.5 H RBC 1.89 L Hgb 5.1 L* D Hct 16.1 L MCV 85.0 D MCH 26.9 L MCHC 31.6 L RDW 21.4 H Plt Count 256 MPV 9.0 Neut % (Auto) 77.3 H Lymph % (Auto) 8.9 L Becker % (Auto) 9.5 Eos % (Auto) 3.5 Baso % (Auto) 0.8 Neut # (Auto) 8.9 H Lymph # (Auto) 1.0 Becker # (Auto) 1.1 H Eos # (Auto) 0.4 Baso # (Auto) 0.1 Neutrophils % (Manual) 77 H Band Neutrophils % 3 H Lymphocytes % (Manual) 9 L Monocytes % (Manual) 10 Eosinophils % (Manual) 1 Platelet Estimate Normal Hypochromasia (manual) Moderate Poikilocytosis (manual Slight Anisocytosis (manual) Slight PT 14.7 H INR 1.3 APTT 22.0 Sodium Potassium Chloride Carbon Dioxide Anion Gap BUN Creatinine Est GFR ( Amer) Est GFR (Non-Af Amer) POC Glucose (mg/dL) 296 H Random Glucose Calcium Total Bilirubin AST ALT Alkaline Phosphatase Total Protein Albumin Globulin Albumin/Globulin Ratio Urine Color Urine Clarity Urine pH Ur Specific [place] Urine Protein Urine Glucose (UA) Urine Ketones Urine Blood Urine Nitrate Urine Bilirubin Urine Urobilinogen Ur Leukocyte Esterase Urine WBC (Auto) Urine RBC (Auto) Urine Bacteria Stool Occult Blood Blood Type Antibody Screen 12/11/18 12/11/18 12/11/18 02:40 03:18 04:12 WBC RBC Hgb Hct MCV MCH MCHC RDW Plt Count MPV Neut % (Auto) Lymph % (Auto) Becker % (Auto) Eos % (Auto) Baso % (Auto) Neut # (Auto) Lymph # (Auto) Becker # (Auto) Eos # (Auto) Baso # (Auto) Neutrophils % (Manual) Band Neutrophils % Lymphocytes % (Manual) Monocytes % (Manual) Eosinophils % (Manual) Platelet Estimate Hypochromasia (manual) Poikilocytosis (manual Anisocytosis (manual) PT INR APTT Sodium 133 Potassium 4.5 Chloride 100 Carbon Dioxide 29 Anion Gap 9 L BUN 21 H Creatinine 0.5 L Est GFR ( Amer) > 60 Est GFR (Non-Af Amer) > 60 POC Glucose (mg/dL) Random Glucose 256 H Calcium 9.8 Total Bilirubin 0.4 AST 10 L ALT 28 Alkaline Phosphatase 166 H D Total Protein 4.9 L Albumin 2.1 L Globulin 2.8 Albumin/Globulin Ratio 0.7 L Urine Color Urine Clarity Urine pH Ur Specific [place] Urine Protein Urine Glucose (UA) Urine Ketones Urine Blood Urine Nitrate Urine Bilirubin Urine Urobilinogen Ur Leukocyte Esterase Urine WBC (Auto) Urine RBC (Auto) Urine Bacteria Stool Occult Blood Positive H Blood Type AB POSITIVE Antibody Screen Negative 12/11/18 06:40 WBC RBC Hgb Hct MCV MCH MCHC RDW Plt Count MPV Neut % (Auto) Lymph % (Auto) Becker % (Auto) Eos % (Auto) Baso % (Auto) Neut # (Auto) Lymph # (Auto) Becker # (Auto) Eos # (Auto) Baso # (Auto) Neutrophils % (Manual) Band Neutrophils % Lymphocytes % (Manual) Monocytes % (Manual) Eosinophils % (Manual) Platelet Estimate Hypochromasia (manual) Poikilocytosis (manual Anisocytosis (manual) PT INR APTT Sodium Potassium Chloride Carbon Dioxide Anion Gap BUN Creatinine Est GFR ( Amer) Est GFR (Non-Af Amer) POC Glucose (mg/dL) Random Glucose Calcium Total Bilirubin AST ALT Alkaline Phosphatase Total Protein Albumin Globulin Albumin/Globulin Ratio Urine Color Yellow Urine Clarity Clear Urine pH 6.0 Ur Specific [place] 1.012 Urine Protein Negative Urine Glucose (UA) 1+ H Urine Ketones Negative Urine Blood Negative Urine Nitrate Negative Urine Bilirubin Negative Urine Urobilinogen 2.0 Ur Leukocyte Esterase Neg Urine WBC (Auto) 4 Urine RBC (Auto) 1 Urine Bacteria Rare Stool Occult Blood Blood Type Antibody Screen Assessment & Plan - Assessment and Plan (Free Text) Assessment: 1. Symptomatic Acute Anemia 2. GE junction/Esophageal Squamous cell carcinoma 3. s/p PEG 4. Hx of Alcoholic Cirrhosis Plan: -Pt with likely oozing/bleeding from tumor, PEG was irrigated and flushed +hematin -Rectal exam negative with brown stool, no overt GI bleeding -Transfuse PRBCs, Hgb goal 8-9 with hx of cirrhosis, no varices on recent EGD -Recommend IV PPI BID -Clear liquid diet, no solid food by mouth ever with GE/esophageal mass -No plan for endoscopic evaluation at this time -Will monitor closely and if any changes will re-evaluate for EGD -Supportive care at this time with blood transfusions -Recommend Oncology consult for further treatment plan -Will continue to follow pt, please call with any questions or concerns <Ramiro Aaron - Last Filed: 12/11/18 09:57> Meds - Medications Medications: Current Medications Dextrose (Dextrose 50% Inj) 0 ml IV STAT PRN; Protocol PRN Reason: Hypoglycemia Protocol Dextrose (Glutose 15) 0 gm PO ONCE PRN; Protocol PRN Reason: Hypoglycemia Protocol Glucagon (Glucagen Diagnostic Kit) 0 mg IM STAT PRN; Protocol PRN Reason: Hypoglycemia Protocol Sodium Chloride (Sodium Chloride 0.9%) 1,000 mls @ 100 mls/hr IV .Q10H ONE Stop: 12/11/18 15:45 Last Admin: 12/11/18 06:53 Dose: 100 mls/hr Dextrose (Dextrose 5% In Water 1000 Ml) 1,000 mls @ 0 mls/hr IV .Q0M PRN; Protocol PRN Reason: Hypoglycemia Protocol Insulin Human Regular (Novolin R) 0 unit SC ACHS EDER; Protocol Last Admin: 12/11/18 08:33 Dose: Not Given Nicotine (Nicoderm Cq) 1 patch TD DAILY EDER Pantoprazole Sodium (Protonix Inj) 40 mg IVP Q12H EDER Results - Vital Signs Recent Vital Signs: Last Vital Signs Temp 98.4 F 12/11/18 08:39 Pulse 78 12/11/18 08:39 Resp 17 12/11/18 08:39 BP 125/73 12/11/18 08:39 Pulse Ox 97 12/11/18 08:39 - Labs Result Diagrams: 12/11/18 02:40 12/11/18 02:40 Labs: Laboratory Results - last 24 hr 12/11/18 12/11/18 12/11/18 02:02 02:40 02:40 WBC 11.5 H RBC 1.89 L Hgb 5.1 L* D Hct 16.1 L MCV 85.0 D MCH 26.9 L MCHC 31.6 L RDW 21.4 H Plt Count 256 MPV 9.0 Neut % (Auto) 77.3 H Lymph % (Auto) 8.9 L Becker % (Auto) 9.5 Eos % (Auto) 3.5 Baso % (Auto) 0.8 Neut # (Auto) 8.9 H Lymph # (Auto) 1.0 Becker # (Auto) 1.1 H Eos # (Auto) 0.4 Baso # (Auto) 0.1 Neutrophils % (Manual) 77 H Band Neutrophils % 3 H Lymphocytes % (Manual) 9 L Monocytes % (Manual) 10 Eosinophils % (Manual) 1 Platelet Estimate Normal Hypochromasia (manual) Moderate Poikilocytosis (manual Slight Anisocytosis (manual) Slight PT 14.7 H INR 1.3 APTT 22.0 Sodium Potassium Chloride Carbon Dioxide Anion Gap BUN Creatinine Est GFR ( Amer) Est GFR (Non-Af Amer) POC Glucose (mg/dL) 296 H Random Glucose Calcium Total Bilirubin AST ALT Alkaline Phosphatase Total Protein Albumin Globulin Albumin/Globulin Ratio Urine Color Urine Clarity Urine pH Ur Specific [place] Urine Protein Urine Glucose (UA) Urine Ketones Urine Blood Urine Nitrate Urine Bilirubin Urine Urobilinogen Ur Leukocyte Esterase Urine WBC (Auto) Urine RBC (Auto) Urine Bacteria Stool Occult Blood Blood Type Antibody Screen 12/11/18 12/11/18 12/11/18 02:40 03:18 04:12 WBC RBC Hgb Hct MCV MCH MCHC RDW Plt Count MPV Neut % (Auto) Lymph % (Auto) Becker % (Auto) Eos % (Auto) Baso % (Auto) Neut # (Auto) Lymph # (Auto) Becker # (Auto) Eos # (Auto) Baso # (Auto) Neutrophils % (Manual) Band Neutrophils % Lymphocytes % (Manual) Monocytes % (Manual) Eosinophils % (Manual) Platelet Estimate Hypochromasia (manual) Poikilocytosis (manual Anisocytosis (manual) PT INR APTT Sodium 133 Potassium 4.5 Chloride 100 Carbon Dioxide 29 Anion Gap 9 L BUN 21 H Creatinine 0.5 L Est GFR ( Amer) > 60 Est GFR (Non-Af Amer) > 60 POC Glucose (mg/dL) Random Glucose 256 H Calcium 9.8 Total Bilirubin 0.4 AST 10 L ALT 28 Alkaline Phosphatase 166 H D Total Protein 4.9 L Albumin 2.1 L Globulin 2.8 Albumin/Globulin Ratio 0.7 L Urine Color Urine Clarity Urine pH Ur Specific [place] Urine Protein Urine Glucose (UA) Urine Ketones Urine Blood Urine Nitrate Urine Bilirubin Urine Urobilinogen Ur Leukocyte Esterase Urine WBC (Auto) Urine RBC (Auto) Urine Bacteria Stool Occult Blood Positive H Blood Type AB POSITIVE Antibody Screen Negative 12/11/18 06:40 WBC RBC Hgb Hct MCV MCH MCHC RDW Plt Count MPV Neut % (Auto) Lymph % (Auto) Becker % (Auto) Eos % (Auto) Baso % (Auto) Neut # (Auto) Lymph # (Auto) Becker # (Auto) Eos # (Auto) Baso # (Auto) Neutrophils % (Manual) Band Neutrophils % Lymphocytes % (Manual) Monocytes % (Manual) Eosinophils % (Manual) Platelet Estimate Hypochromasia (manual) Poikilocytosis (manual Anisocytosis (manual) PT INR APTT Sodium Potassium Chloride Carbon Dioxide Anion Gap BUN Creatinine Est GFR ( Amer) Est GFR (Non-Af Amer) POC Glucose (mg/dL) Random Glucose Calcium Total Bilirubin AST ALT Alkaline Phosphatase Total Protein Albumin Globulin Albumin/Globulin Ratio Urine Color Yellow Urine Clarity Clear Urine pH 6.0 Ur Specific [place] 1.012 Urine Protein Negative Urine Glucose (UA) 1+ H Urine Ketones Negative Urine Blood Negative Urine Nitrate Negative Urine Bilirubin Negative Urine Urobilinogen 2.0 Ur Leukocyte Esterase Neg Urine WBC (Auto) 4 Urine RBC (Auto) 1 Urine Bacteria Rare Stool Occult Blood Blood Type Antibody Screen Attending/Attestation - Attestation I have personally seen and examined this patient.: Yes I have fully participated in the care of the patient.: Yes I have reviewed all pertinent clinical information: Yes Notes (Text): 12/11/18 09:51 I have seen and examined patient with GI fellow. Agree with above documentation with the following additions. In brief, this is a 58 year old male with history of recently diagnosed squamous cell esophageal cancer s/p PEG placement earlier this month, DM, ETOH cirrhosis, who presents from nursing rehabilitation facility with complaint of progressive weakness and dizziness. He reports symptoms for the past 3 days, was found to have low hemoglobin on outpatient bloodwork and sent to hospital. He endorses ongoing fatigue and weakness but denies abdominal pain, nausea, vomiting, fever/chills, melena, or bloody output via PEG tube. He has been consuming liquids and shakes by mouth and has also been using the gastrostomy tube for supplemental nutritional support. He typically has light brown, loose bowel movements daily. Review of vitals from today are normal. Squamous cell esophageal cancer DM ETOH cirrhosis Anemia - Clear liquid diet as tolerated - Patient currently receiving PRBC transfusion, continue to monitor H/H - Rectal exam performed shows brown stool without palpable lesions, no gross blood present in gastrostomy tube - Continue with PPI therapy - Etiology of anemia likely multifactorial, potential slow bleeding from bulky esophageal cancer - Follow up oncology recommendations - No plan for GI intervention at this time, will continue to monitor patient clinical course
--- NOTE | 2018-12-11 09:20 | RAD ---
Chest x-ray single frontal view HISTORY: GI bleeding. Comparison: 11/17/2018 Findings: Biapical pleural thickening with upper lobe granulomatous changes. Right PICC line with tip extending to the right proximal SVC. Mild venous congestion. Patchy increased markings at the left lung base. Blunted left costophrenic angle. Tortuous aorta. Top normal heart size. Degenerative changes in the spine. Tubing projects over the left upper abdomen. Impression: Biapical pleural thickening with upper lobe granulomatous changes. Right PICC line with tip extending to the right proximal SVC. Mild venous congestion. Patchy increased markings at the left lung base. Blunted left costophrenic angle. Tortuous aorta. Top normal heart size. Degenerative changes in the spine. Tubing projects over the left upper abdomen.
[2018-12-11] MEDS: (Novolin R) Insulin Human Regular 100 units/ml vial SC SCH ×4 (11:22→22:23)
[2018-12-11 11:25] LABS: HEMOGLOBIN 6.9 g/dL (12.0-18.0); MEAN CELL VOLUME 86.3 fL (80.0-94.0); MEAN CORPUSCULAR HEMOGLOBIN 28.3 pg (27.0-31.0); MEAN CORPUSCULAR HGB CONC 32.8 g/dL (33.0-37.0); MEAN PLATELET VOLUME 9.1 fL (7.2-11.7); RBC 2.45 Mil/uL (4.40-5.90); RED CELL DISTRIBUTION WIDTH 19.1 % (11.5-14.5); WHITE BLOOD COUNT 12.4 K/uL (4.8-10.8)
[2018-12-11 11:43] LABS: IRON 20 ug/dL (49-181)
--- NOTE | 2018-12-11 11:46 | CP.PCM.PN ---
<Enrique Dye - Last Filed: 12/11/18 12:54> Subjective - Date & Time of Evaluation Date of Evaluation: 12/11/18 Time of Evaluation: 11:41 - Subjective Subjective: Medicine Progress Note for Dr. Sebastian's service S/E at bedside States he gets lightheaded and the feeling that he is about to faint when he stands [place] with minimal exertion Reports dizziness when standing Reports diarrhea, denies melena, and bright blood per bms Denies fevers, chills, chest pain, n/v, constipation or dysuria. Objective - Vital Signs/Intake and Output Vital Signs (last 24 hours): Temp Pulse Resp BP Pulse Ox 99 F 85 18 111/67 99 12/11/18 11:12 12/11/18 11:12 12/11/18 11:12 12/11/18 11:12 12/11/18 11:12 - Medications Medications: Current Medications Dextrose (Dextrose 50% Inj) 0 ml IV STAT PRN; Protocol PRN Reason: Hypoglycemia Protocol Dextrose (Glutose 15) 0 gm PO ONCE PRN; Protocol PRN Reason: Hypoglycemia Protocol Folic Acid (Folic Acid) 1 mg PEG DAILY EDER Glucagon (Glucagen Diagnostic Kit) 0 mg IM STAT PRN; Protocol PRN Reason: Hypoglycemia Protocol Sodium Chloride (Sodium Chloride 0.9%) 1,000 mls @ 100 mls/hr IV .Q10H ONE Stop: 12/11/18 15:45 Last Admin: 12/11/18 06:53 Dose: 100 mls/hr Dextrose (Dextrose 5% In Water 1000 Ml) 1,000 mls @ 0 mls/hr IV .Q0M PRN; Protocol PRN Reason: Hypoglycemia Protocol Insulin Human Regular (Novolin R) 0 unit SC Q6H EDER; Protocol Mirtazapine (Remeron) 30 mg PEG HS EDER Multivitamins/Vitamin C (Multi-Delyn Liquid) 5 ml PEG DAILY EDER Nicotine (Nicoderm Cq) 1 patch TD DAILY EDER Last Admin: 12/11/18 11:31 Dose: 1 patch Pantoprazole Sodium (Protonix Inj) 40 mg IVP Q12H EDER Sertraline HCl (Zoloft) 50 mg PO DAILY EDER Thiamine HCl (Vitamin B1 Tab) 100 mg PEG DAILY EDER - Labs Labs: 12/11/18 11:15 12/11/18 02:40 PT 14.7 SECONDS (9.7-12.2) H 12/11/18 02:40 INR 1.3 12/11/18 02:40 APTT 22.0 SECONDS (21-34) 12/11/18 02:40 - Constitutional Appears: Non-toxic, No Acute Distress, Cachectic - Head Exam Head Exam: NORMAL INSPECTION, NORMOCEPHALIC - Eye Exam Eye Exam: EOMI, Normal appearance. absent: Nystagmus, Scleral icterus - ENT Exam ENT Exam: Mucous Membranes Dry - Respiratory Exam Respiratory Exam: Clear to Ausculation Bilateral, NORMAL BREATHING PATTERN. absent: Rhonchi, Wheezes - Cardiovascular Exam Cardiovascular Exam: REGULAR RHYTHM, +S1, +S2 - GI/Abdominal Exam GI & Abdominal Exam: Soft, Normal Bowel Sounds. absent: Rigid, Tenderness Additional comments: PEG tube intact with no signs of surrounding infection - Extremities Exam Extremities Exam: Normal Inspection. absent: Calf Tenderness, Pedal Edema - Back Exam Back Exam: NORMAL INSPECTION - Neurological Exam Neurological Exam: Awake, Oriented x3 - Psychiatric Exam Psychiatric exam: Normal Affect, Normal Mood - Skin Skin Exam: Dry, Normal Color Additional comments: sacrum area: With 2 reddened areas likely stage 2 ulcers Assessment and Plan - Assessment and Plan (Free Text) Assessment: 58 yo male w/ PMH of cirrhosis, DM, alcohol and tobacco use disorder, hx of bacteremmia and GE squamous cell cancer admitteded for symptomatic anemia. Anemia * GI (Dr. Aaron) on board--> CLD, possible 2/2 slow bleeding Gastroesophageal mass * 3 units of pRBCs in process of being transfused * IV protonix 40mg q12h * NS @ 100mls/hr * Likely secondary to the suspicious mass found on EGD performed on 11/12/18 * Repeat b12, folate studies pending * Occult blood: positive * continue to monitor H/H GE Poorly Differentiated Squamous Cell CA * GI (Dr. Aaron) on board-->help appreciated * Patient is S/P Upper EGD on 11/12/18 and pathology from biopsy has confirmed * Heme/Oncologist Dr. Melody Paredes recommendation: outpatient PET Scan for staging and if NO mets then Chemo+Radiation and Surgical evaluation (from prior admission); still on PET scan * Palliative Care Nurse Rosas- consulted Diarrhea * C diff studies pending * Fecal leukocytes pending Hx of Sepsis w/ Bacteremia, UTI, Empyem Urinary tract infection Bacteremia Empyema * Code sepsis 11/08/18 * Blood culture (11/08/18): Klebsiella pneumoniae * Repeat Blood culture (11/11/18): finalized as negative at 5 days * Urine culture (11/08/18): Enterococcus Faecalis * Repeat Urine Culture (11/15/18): NO growth * Pleural fluid (11/09/18): Streptococcus anginosus which is sensitive to Vancomycin which the patient was restarted on 11/11/18 please refer to prior admission for full treatment details Cirrhosis * GI (Dr. Aaron)- recs appreciated * CT Chest/Abdomen/pelvis IV contrast (11/08/18): prior amount of ascites and anasarca has improved. further findings per report * Abdominal US (08/18/18): limited study. echogenic liver may be seen in hepatic parenchymal disease or fatty infiltrate. nodular hepatic contour. cholelithiasis. gallbladder wall thickening/pericholecystic edema. negative sonographic Cespedes's small abdominal ascites * Hepatitis Panel negative in prior admissions * Patient notes he has drinking 3 shots of vodka X 30 years. Diabetes mellitus 2 * Hgba1c: 8.1 * RISS Q6H * Accuchecks Q6H Adjustment disorder with depressed mood * increase Zoloft to 50mg QD * Increase remeron to 30mg HS Alcohol use disorder * Folic acid 1mg PO Daily * MVI tab PO daily * Thiamine 100mg PO daily Tobacco use * 1 ppd X30 years * Nicotine patch daily 21g taper over 12 weeks * Advised smoking cessation Cachexia * Related to alcohol, smoking, malnutrition, AND likely related to suspicious GE mass * Tube feeds on hold will as per GI Ulcer of sacral region, stage 2 * frequent repositioning to prevent further skin breakdown * Nursing wound care referral- recs appreciated Prophylactic measure * PT/OT eval * Protonix 40mg IV q12H * DNI/DNR * SCDs, no chem AC in setting of bleed * Clear Liquid diet Disposition: Consider heme/onc eval, pending full eval as per GI, will monitor H&H and followup consultation rec Case d/w Dr. Sebastian PGY-1 Enrique Dye <Nestor Sebastian - Last Filed: 12/13/18 19:01> Objective - Vital Signs/Intake and Output Vital Signs (last 24 hours): Temp Pulse Resp BP Pulse Ox 99 F 20 L 96 H 145/78 96 12/13/18 15:00 12/13/18 15:00 12/13/18 15:00 12/13/18 15:00 12/13/18 15:00 Intake and Output: 12/13/18 12/14/18 18:59 06:59 Intake Total 690 Balance 690 - Medications Medications: Current Medications Dextrose (Dextrose 50% Inj) 0 ml IV STAT PRN; Protocol PRN Reason: Hypoglycemia Protocol Dextrose (Glutose 15) 0 gm PO ONCE PRN; Protocol PRN Reason: Hypoglycemia Protocol Ferrous Sulfate (Feosol Liq) 300 mg PO BID [facility] Last Admin: 12/13/18 17:12 Dose: 300 mg Folic Acid (Folic Acid) 1 mg PEG DAILY [facility] Last Admin: 12/13/18 10:13 Dose: 1 mg Glucagon (Glucagen Diagnostic Kit) 0 mg IM STAT PRN; Protocol PRN Reason: Hypoglycemia Protocol Dextrose (Dextrose 5% In Water 1000 Ml) 1,000 mls @ 0 mls/hr IV .Q0M PRN; Protocol PRN Reason: Hypoglycemia Protocol Insulin Human Regular (Novolin R) 0 unit SC ACHS [facility]; Protocol Last Admin: 12/13/18 16:54 Dose: 3 units Mirtazapine (Remeron) 30 mg PEG HS [facility] Last Admin: 12/12/18 21:44 Dose: 30 mg Multivitamins/Vitamin C (Multi-Delyn Liquid) 5 ml PEG DAILY [facility] Last Admin: 12/13/18 10:13 Dose: 5 ml Nicotine (Nicoderm Cq) 1 patch TD DAILY [facility] Stop: 12/23/18 11:30 Last Admin: 12/13/18 10:13 Dose: 1 patch Pantoprazole Sodium (Protonix Inj) 40 mg IVP Q12H [facility] Last Admin: 12/13/18 18:48 Dose: 40 mg Sertraline HCl (Zoloft) 50 mg PO DAILY [facility] Last Admin: 12/13/18 10:13 Dose: 50 mg Thiamine HCl (Vitamin B1 Tab) 100 mg PEG DAILY [facility] Last Admin: 12/13/18 10:13 Dose: 100 mg - Labs Labs: 12/13/18 07:19 12/13/18 07:19 PT 14.7 SECONDS (9.7-12.2) H 12/11/18 02:40 INR 1.3 12/11/18 02:40 APTT 22.0 SECONDS (21-34) 12/11/18 02:40 Attending/Attestation - Attestation I have personally seen and examined this patient.: Yes I have fully participated in the care of the patient.: Yes I have reviewed all pertinent clinical information, including history, physical exam and plan: Yes Notes (Text): 12/13/18 19:00 This is a late entry. Care of this patient was gone over with resident Dr. Dye. Nestor Sebastian D.O.
[2018-12-11 11:52] LABS: % IRON SATURATION 12 (20-55); TOTAL IRON BINDING CAPACITY 160 ug/dL (250-450)
[2018-12-11] MEDS: Multiple Vitamins Oral Solution PEG SCH (12:11)
[2018-12-11 13:02] LABS: FOLATE 15.7 ng/mL
--- NOTE | 2018-12-11 15:05 | CP.PCM.CON ---
History of Present Illness - History of Present Illness History of Present Illness: Palliative consult requested by Doctor Dye for goals of care discussion Patient is a 58 yo admitted from [place] with Hb of 5.1. Occult blood confirmed positive. Patient is receiving PRBcs. His Hb today is 6.9. Patient was recently treated at this hospital for Empyema and Esophageal mass, when he received PEG due to difficulties swallowing. Patient is now on clear liquid diet and tolerates it well. PMH: squamos cell Ca, S/P chest tube for empyema, PEG Soc. Hx: single, lives at home, his 96 yo mother lives in the same house, used to smoke 1ppd X 30 years, ETOH X 30 years, denies illicit drugs use Fam. Hx: denied Review of Systems - Constitutional Constitutional: absent: As Per HPI, Anorexia, Chills, Daytime Sleepiness, Excessive Sweating, Fatigue, Fever, Frequent Falls, Headache, Increased Appetite, Lethargy, Malaise, Night Sweats, Snoring, Sleep Apnea, Weight Gain, Weight Loss, Weakness, Other - EENT Eyes: absent: As Per HPI, Blind Spots, Blurred Vision, Change in Vision, Decreased Night Vision, Diplopia, Discharge, Dry Eye, Exophthalmos, Floaters, Irritation, Itchy Eyes, Loss of Peripheral Vision, Pain, Photophobia, Requires Corrective Lenses, Sees Flashes, Spots in Vision, Tunnel Vision, Other Visual Di sturbances, Loss of Vision, Other Ears: absent: As Per HPI, Decreased Hearing, Ear Discharge, Ear Pain, Tinnitus, Abnormal Hearing, Disequilibrium, Dizziness, Other Nose/Mouth/Throat: absent: As Per HPI, Epistaxis, Nasal Congestion, Nasal Discharge, Nasal Obstruction, Nasal Trauma, Nose Pain, Post Nasal Drip, Sinus Pain, Sinus Pressure, Bleeding Gums, Change in Voice, Dental Pain, Dry Mouth, Dysphagia, Halitosis, Hoarsness, Lip Swelling, Mouth Lesions, Mouth Pain, Odynophagia, Sore Throat, Throat Swelling, Tongue Swelling, Facial Pain, Neck Pain, Neck Mass, Other - Cardiovascular Cardiovascular: absent: As Per HPI, Acrocyanosis, Chest Pain, Chest Pain at Rest, Chest Pain with Activity, Claudication, Diaphoresis, Dyspnea, Dyspnea on Exertion, Edema, Irregular Heart Rhythm, Pain Radiating to Arm/Neck/Jaw, Leg Edema, Leg Ulcers, Lightheadedness, Orthopnea, Palpitations, Paroxysmal Nocturnal Dyspnea, Pedal Edema, Radiating Pain, Rapid Heart Rate, Slow Heart Rate, Syncope, Other - Respiratory Respiratory: absent: As Per HPI, Cough, Dyspnea, Hemoptysis, Dyspnea on Exertion, Wheezing, Snoring, Stridor, Pain on Inspiration, Chest Congestion, Excessive Mucous Production, Change in Mucous Color, Pain with Coughing, Other - Gastrointestinal Additional comments: PEG - Genitourinary Genitourinary: absent: As Per HPI, Change in Urinary Stream, Difficulty Urinating, Dysuria, Flank Pain, Hematuria, Pyuria, Nocturia, Urinary Incontinence, Urinary Frequency, Urinary Hesitance, Urinary Urgency, Voiding Freq/Small Amts, Freq UTI, Hx Renal/Bladder Calculi, Hx /Renal Surgery, Bladder Distension, Other - Musculoskeletal Musculoskeletal: Muscle Weakness - Integumentary Integumentary: absent: As Per HPI, Acne, Alopecia, Bleeding Lesions, Change in Hair, Change in Nails, Change in Pigmentation, Changing Lesions, Dry Skin, Erythema, Furuncle, Hirsutism, Lesions, New Lesions, Non-Healing Lesions, Photosensitivity, Pruritus, Rash, Skin Pain, Skin Ulcer, Sores, Striae, Swelling, Unusual Bruising, Wounds, Jaundice, Other - Neurological Neurological: absent: As Per HPI, Abnormal Gait, Abnormal Hearing, Abnormal Movements, Abnormal Speech, Behavioral Changes, Burning Sensations, Confusion, Convulsions, Disequilibrium, Dizziness, Numbness, Focal Weakness, Frequent Fa lls, Headaches, Lack of Coordination, Loss of Vision, Memory Loss, Paresthesias, Radicular Pain, Restless Legs, Sensory Deficit, Syncope, Tingling, Tremor, Vertigo, Weakness, Other Visual Disturbances, Other - Psychiatric Psychiatric: absent: As Per HPI, Abnormal Sleep Pattern, Anhedonia, Anxiety, Auditory Hallucinations, Behavioral Changes, Change in Appetite, Change in Libido, Confusion, Depression, Difficulty Concentrating, Hallucinations, Homicidal Ideation, Hopelessness, Irritability, Memory Loss, Mood Swings, Panic Attacks, Paranoia, Suicidal Ideation, Visual Hallucinations, Tactile Hallucinations, Other - Endocrine Endocrine: absent: As Per HPI, Change in Body Appearance, Change in Libido, Cold Intolorance, Deepening of Voice, Excessive Sweating, Fatigue, Flushing, Heat Intolorance, Increase in Ring/Shoe/Hat Size, Palpitations, Polydipsia, Polyphagia, Polyuria, Other - Hematologic/Lymphatic Hematologic: Easy Bleeding Past Patient History - Past Medical History & Family History Past Medical History?: Yes - Past Social History Smoking Status: Former Smoker - CARDIAC Hx Pacemaker: No - PULMONARY Hx Pneumonia: Yes - NEUROLOGICAL Hx Neurological Disorder: No - HEENT Hx HEENT Problems: No - RENAL Hx Chronic Kidney Disease: No - ENDOCRINE/METABOLIC Hx Endocrine Disorders: Yes Hx Diabetes Mellitus Type 2: Yes - HEMATOLOGICAL/ONCOLOGICAL Hx Anemia: Yes - INTEGUMENTARY Hx Dermatological Problems: No - MUSCULOSKELETAL/RHEUMATOLOGICAL Hx Falls: No - GASTROINTESTINAL Hx Gastrointestinal Disorders: Yes Other/Comment: gastric ca. g tube - GENITOURINARY/GYNECOLOGICAL Hx Genitourinary Disorders: No - PSYCHIATRIC Hx Substance Use: No - SURGICAL HISTORY Hx Mastectomy: No Other/Comment: Gastrostomy TUbe - ANESTHESIA Hx Anesthesia: Yes Hx Anesthesia Reactions: No Hx Malignant Hyperthermia: No Meds Allergies/Adverse Reactions: Allergies Allergy/AdvReac Type Severity Reaction Status Date / Time flaxseed Allergy SHORTNESS Verified 12/11/18 02:15 OF BREATH - Medications Medications: Current Medications Dextrose (Dextrose 50% Inj) 0 ml IV STAT PRN; Protocol PRN Reason: Hypoglycemia Protocol Dextrose (Glutose 15) 0 gm PO ONCE PRN; Protocol PRN Reason: Hypoglycemia Protocol Folic Acid (Folic Acid) 1 mg PEG DAILY [facility] Last Admin: 12/11/18 12:13 Dose: 1 mg Glucagon (Glucagen Diagnostic Kit) 0 mg IM STAT PRN; Protocol PRN Reason: Hypoglycemia Protocol Sodium Chloride (Sodium Chloride 0.9%) 1,000 mls @ 100 mls/hr IV .Q10H ONE Stop: 12/11/18 15:45 Last Admin: 12/11/18 06:53 Dose: 100 mls/hr Dextrose (Dextrose 5% In Water 1000 Ml) 1,000 mls @ 0 mls/hr IV .Q0M PRN; Protocol PRN Reason: Hypoglycemia Protocol Insulin Human Regular (Novolin R) 0 unit SC Q6H [facility]; Protocol Last Admin: 12/11/18 12:11 Dose: 4 units Mirtazapine (Remeron) 30 mg PEG HS [facility] Multivitamins/Vitamin C (Multi-Delyn Liquid) 5 ml PEG DAILY [facility] Last Admin: 12/11/18 12:11 Dose: 5 ml Nicotine (Nicoderm Cq) 1 patch TD DAILY [facility] Last Admin: 12/11/18 11:31 Dose: 1 patch Pantoprazole Sodium (Protonix Inj) 40 mg IVP Q12H [facility] Sertraline HCl (Zoloft) 50 mg PO DAILY [facility] Last Admin: 12/11/18 12:13 Dose: 50 mg Thiamine HCl (Vitamin B1 Tab) 100 mg PEG DAILY [facility] Last Admin: 12/11/18 12:13 Dose: 100 mg Physical Exam - Constitutional Appears: No Acute Distress, Chronically Ill - Head Exam Head Exam: ATRAUMATIC, NORMAL INSPECTION, NORMOCEPHALIC - Eye Exam Eye Exam: EOMI, Normal appearance, PERRL Pupil Exam: NORMAL ACCOMODATION, PERRL - ENT Exam ENT Exam: Mucous Membranes Moist, Normal Exam - Neck Exam Neck exam: Positive for: Normal Inspection - Respiratory Exam Respiratory Exam: NORMAL BREATHING PATTERN - Cardiovascular Exam Cardiovascular Exam: REGULAR RHYTHM - GI/Abdominal Exam Additional comments: PEG, tolerates feedings, denies blood in stool - Rectal Exam Rectal Exam: Deferred - Exam Exam: NORMAL INSPECTION - Extremities Exam Additional comments: limited weight bearing, feels weakness - Back Exam Back exam: NORMAL INSPECTION - Neurological Exam Neurological exam: Abnormal Gait, Alert, Oriented x3 - Psychiatric Exam Psychiatric exam: Normal Affect, Normal Mood - Skin Skin Exam: Dry, Intact, Pallor, Warm Results - Vital Signs Recent Vital Signs: Last Vital Signs Temp 98.8 F 12/11/18 13:21 Pulse 71 12/11/18 13:21 Resp 22 12/11/18 13:21 BP 110/69 12/11/18 13:21 Pulse Ox 96 12/11/18 11:58 - Labs Result Diagrams: 12/11/18 11:15 12/11/18 02:40 Labs: Laboratory Results - last 24 hr 12/11/18 12/11/18 12/11/18 02:02 02:40 02:40 WBC 11.5 H RBC 1.89 L Hgb 5.1 L* D Hct 16.1 L MCV 85.0 D MCH 26.9 L MCHC 31.6 L RDW 21.4 H Plt Count 256 MPV 9.0 Neut % (Auto) 77.3 H Lymph % (Auto) 8.9 L [place] % (Auto) 9.5 Eos % (Auto) 3.5 Baso % (Auto) 0.8 Neut # (Auto) 8.9 H Lymph # (Auto) 1.0 [place] # (Auto) 1.1 H Eos # (Auto) 0.4 Baso # (Auto) 0.1 Neutrophils % (Manual) 77 H Band Neutrophils % 3 H Lymphocytes % (Manual) 9 L Monocytes % (Manual) 10 Eosinophils % (Manual) 1 Platelet Estimate Normal Hypochromasia (manual) Moderate Poikilocytosis (manual Slight Anisocytosis (manual) Slight PT 14.7 H INR 1.3 APTT 22.0 Sodium Potassium Chloride Carbon Dioxide Anion Gap BUN Creatinine Est GFR ( Amer) Est GFR (Non-Af Amer) POC Glucose (mg/dL) 296 H Random Glucose Calcium Phosphorus Iron TIBC % Saturation Total Bilirubin AST ALT Alkaline Phosphatase Total Protein Albumin Globulin Albumin/Globulin Ratio Vitamin B12 Folate Urine Color Urine Clarity Urine pH Ur Specific [place] Urine Protein Urine Glucose (UA) Urine Ketones Urine Blood Urine Nitrate Urine Bilirubin Urine Urobilinogen Ur Leukocyte Esterase Urine WBC (Auto) Urine RBC (Auto) Urine Bacteria Stool Occult Blood Blood Type Antibody Screen 12/11/18 12/11/18 12/11/18 02:40 03:18 04:12 WBC RBC Hgb Hct MCV MCH MCHC RDW Plt Count MPV Neut % (Auto) Lymph % (Auto) [place] % (Auto) Eos % (Auto) Baso % (Auto) Neut # (Auto) Lymph # (Auto) [place] # (Auto) Eos # (Auto) Baso # (Auto) Neutrophils % (Manual) Band Neutrophils % Lymphocytes % (Manual) Monocytes % (Manual) Eosinophils % (Manual) Platelet Estimate Hypochromasia (manual) Poikilocytosis (manual Anisocytosis (manual) PT INR APTT Sodium 133 Potassium 4.5 Chloride 100 Carbon Dioxide 29 Anion Gap 9 L BUN 21 H Creatinine 0.5 L Est GFR ( Amer) > 60 Est GFR (Non-Af Amer) > 60 POC Glucose (mg/dL) Random Glucose 256 H Calcium 9.8 Phosphorus Iron TIBC % Saturation Total Bilirubin 0.4 AST 10 L ALT 28 Alkaline Phosphatase 166 H D Total Protein 4.9 L Albumin 2.1 L Globulin 2.8 Albumin/Globulin Ratio 0.7 L Vitamin B12 Folate Urine Color Urine Clarity Urine pH Ur Specific [place] Urine Protein Urine Glucose (UA) Urine Ketones Urine Blood Urine Nitrate Urine Bilirubin Urine Urobilinogen Ur Leukocyte Esterase Urine WBC (Auto) Urine RBC (Auto) Urine Bacteria Stool Occult Blood Positive H Blood Type AB POSITIVE Antibody Screen Negative 12/11/18 12/11/18 12/11/18 06:40 11:11 11:15 WBC RBC Hgb Hct MCV MCH MCHC RDW Plt Count MPV Neut % (Auto) Lymph % (Auto) [place] % (Auto) Eos % (Auto) Baso % (Auto) Neut # (Auto) Lymph # (Auto) [place] # (Auto) Eos # (Auto) Baso # (Auto) Neutrophils % (Manual) Band Neutrophils % Lymphocytes % (Manual) Monocytes % (Manual) Eosinophils % (Manual) Platelet Estimate Hypochromasia (manual) Poikilocytosis (manual Anisocytosis (manual) PT INR APTT Sodium Potassium Chloride Carbon Dioxide Anion Gap BUN Creatinine Est GFR ( Amer) Est GFR (Non-Af Amer) POC Glucose (mg/dL) 313 H Random Glucose Calcium Phosphorus Iron 20 L TIBC 160 L % Saturation 12 L Total Bilirubin AST ALT Alkaline Phosphatase Total Protein Albumin Globulin Albumin/Globulin Ratio Vitamin B12 Folate Urine Color Yellow Urine Clarity Clear Urine pH 6.0 Ur Specific [place] 1.012 Urine Protein Negative Urine Glucose (UA) 1+ H Urine Ketones Negative Urine Blood Negative Urine Nitrate Negative Urine Bilirubin Negative Urine Urobilinogen 2.0 Ur Leukocyte Esterase Neg Urine WBC (Auto) 4 Urine RBC (Auto) 1 Urine Bacteria Rare Stool Occult Blood Blood Type Antibody Screen 12/11/18 12/11/18 11:15 11:15 WBC 12.4 H RBC 2.45 L Hgb 6.9 L Hct 21.1 L MCV 86.3 MCH 28.3 MCHC 32.8 L RDW 19.1 H Plt Count 259 MPV 9.1 Neut % (Auto) Lymph % (Auto) [place] % (Auto) Eos % (Auto) Baso % (Auto) Neut # (Auto) Lymph # (Auto) [place] # (Auto) Eos # (Auto) Baso # (Auto) Neutrophils % (Manual) Band Neutrophils % Lymphocytes % (Manual) Monocytes % (Manual) Eosinophils % (Manual) Platelet Estimate Hypochromasia (manual) Poikilocytosis (manual Anisocytosis (manual) PT INR APTT Sodium Potassium Chloride Carbon Dioxide Anion Gap BUN Creatinine Est GFR ( Amer) Est GFR (Non-Af Amer) POC Glucose (mg/dL) Random Glucose Calcium Phosphorus 3.0 Iron TIBC % Saturation Total Bilirubin AST ALT Alkaline Phosphatase Total Protein Albumin Globulin Albumin/Globulin Ratio Vitamin B12 > 1000 H Folate 15.7 Urine Color Urine Clarity Urine pH Ur Specific [place] Urine Protein Urine Glucose (UA) Urine Ketones Urine Blood Urine Nitrate Urine Bilirubin Urine Urobilinogen Ur Leukocyte Esterase Urine WBC (Auto) Urine RBC (Auto) Urine Bacteria Stool Occult Blood Blood Type Antibody Screen Assessment & Plan - Assessment and Plan (Free Text) Assessment: Palliative consult DNR/DNI, POLST on chart, PPS 40% I reviewed all medical records, diagnostic studies, examined and interviewed patient in the bed. Physical exam: Patient is alert, oriented , with speech that is clear and affect that is appropriate. Denies depression. Takes Zoloft and Remeron daily.Denies dizziness, has not tried OOB yet. Skin pale, dry, intact. HR 71, rhythm reguar, denies chest pain at rest. Breathing normal. Denies cough/SOB. PEG in situ, functions well, tolerates feedings, denies blood in stool. There is weakness to LEs. There is some active ROM, good sensation to touch. patient feels his strenght has increased with PT but is still unable to walk on his own. Pain denied. BP 110/61, HR 71, afebrile Hb 6.9. Receiving PRBCs at present. Goals of care discussed with patient. He reports feeling more energized after blood transfusion. Patient is looking forward PET scan and wants to start Therapy as suggested by Oncologist. Patient reports being traumatized at [facility] when was not given water for 4 days. We discussed proper channels to discuss his concerns at the institution. Code status reviewed. Patient remained with DNR/DNI. I shared my information with him and ask to call me if he should have any concerns. Impression * Acute blood loss, 2 nd to occult blood * Unsteady gait, weakness of LEs * PEG in situ * Known Hx of cancer, awaiting PET scan * DNR/DNI Suggestion * Continue blood transfusion until Hb stable * Clear liquid diet * PEG care * Aspiration precautions * F/U with oncology * Discharge to [facility] to continue PT Palliative care will sign off at this time. Thank you for consulting Palliative care
[2018-12-12] MEDS: (Novolin R) Insulin Human Regular 100 units/ml vial SC SCH ×5 (05:10→21:46)
[2018-12-12 07:55] LABS: BASO % 0.4 % (0.0-2.0); EOS # 0.4 K/uL (0.0-0.7); EOS % 3.3 % (0.0-4.0); LYMPH # 0.9 K/uL (1.0-4.3); MEAN CORPUSCULAR HEMOGLOBIN 27.5 pg (27.0-31.0); MEAN CORPUSCULAR HGB CONC 33.9 g/dL (33.0-37.0); MEAN PLATELET VOLUME 8.6 fL (7.2-11.7); MONO # 1.2 K/uL (0.0-0.8); MONO % 9.2 % (0.0-10.0); NEUT # 10.8 K/uL (1.8-7.0); NEUT % 80.1 % (50.0-75.0); PLATELET COUNT 263 K/uL (130-400); RBC 3.32 Mil/uL (4.40-5.90); RED CELL DISTRIBUTION WIDTH 21.4 % (11.5-14.5); WHITE BLOOD COUNT 13.5 K/uL (4.8-10.8)
[2018-12-12 08:07] LABS: HEMOGLOBIN 9.1 g/dL (12.0-18.0); MEAN CELL VOLUME 81.1 fL (80.0-94.0)
[2018-12-12 08:42] LABS: ALB/GLOB RATIO 0.7 (1.0-2.1); ALBUMIN 2.1 g/dL (3.5-5.0); ALT/SGPT 22 U/L (21-72); AST/SGOT 15 U/L (17-59); BLOOD UREA NITROGEN 15 mg/dL (9-20); CALCIUM 10.2 mg/dl (8.6-10.4); GFR NON-AFRICAN AMERICAN > 60
--- NOTE | 2018-12-12 08:44 | CP.PCM.PN ---
<Irene Vasquez - Last Filed: 12/12/18 08:41> Subjective - Date & Time of Evaluation Date of Evaluation: 12/12/18 Time of Evaluation: 07:00 - Subjective Subjective: GI Fellow PGY5 Progress Note Pt seen and examined at bedside, pt reports feeling weak but slightly better this am after blood transfusion. Denies any rectal bleeding, hematemesis or melena. Tolerating po Clear liquid diet. ROS: A 12pt ROS was negative except as above. Objective - Vital Signs/Intake and Output Vital Signs (last 24 hours): Temp Pulse Resp BP Pulse Ox 97.4 F L 83 20 143/87 95 12/12/18 04:27 12/12/18 04:27 12/12/18 04:27 12/12/18 04:27 12/12/18 04:27 Intake and Output: 12/12/18 12/12/18 06:59 18:59 Intake Total 1600 Output Total 1650 Balance -50 - Medications Medications: Current Medications Dextrose (Dextrose 50% Inj) 0 ml IV STAT PRN; Protocol PRN Reason: Hypoglycemia Protocol Dextrose (Glutose 15) 0 gm PO ONCE PRN; Protocol PRN Reason: Hypoglycemia Protocol Folic Acid (Folic Acid) 1 mg PEG DAILY [facility] Last Admin: 12/11/18 12:13 Dose: 1 mg Glucagon (Glucagen Diagnostic Kit) 0 mg IM STAT PRN; Protocol PRN Reason: Hypoglycemia Protocol Dextrose (Dextrose 5% In Water 1000 Ml) 1,000 mls @ 0 mls/hr IV .Q0M PRN; Protocol PRN Reason: Hypoglycemia Protocol Insulin Human Regular (Novolin R) 0 unit SC Q6H [facility]; Protocol Last Admin: 12/12/18 05:10 Dose: 1 units Mirtazapine (Remeron) 30 mg PEG HS [facility] Last Admin: 12/11/18 22:23 Dose: 30 mg Multivitamins/Vitamin C (Multi-Delyn Liquid) 5 ml PEG DAILY [facility] Last Admin: 12/11/18 12:11 Dose: 5 ml Nicotine (Nicoderm Cq) 1 patch TD DAILY [facility] Stop: 12/23/18 11:30 Last Admin: 12/11/18 11:31 Dose: 1 patch Pantoprazole Sodium (Protonix Inj) 40 mg IVP Q12H [facility] Last Admin: 12/12/18 06:05 Dose: 40 mg Sertraline HCl (Zoloft) 50 mg PO DAILY [facility] Last Admin: 12/11/18 12:13 Dose: 50 mg Thiamine HCl (Vitamin B1 Tab) 100 mg PEG DAILY [facility] Last Admin: 12/11/18 12:13 Dose: 100 mg - Labs Labs: 12/12/18 07:30 12/11/18 02:40 PT 14.7 SECONDS (9.7-12.2) H 12/11/18 02:40 INR 1.3 12/11/18 02:40 APTT 22.0 SECONDS (21-34) 12/11/18 02:40 - Constitutional Appears: Non-toxic, No Acute Distress, Cachectic, Chronically Ill - Head Exam Head Exam: ATRAUMATIC, NORMAL INSPECTION, NORMOCEPHALIC - Eye Exam Eye Exam: EOMI, Normal appearance, PERRL - ENT Exam ENT Exam: Mucous Membranes Moist, Normal Exam - Neck Exam Neck Exam: Full ROM, Normal Inspection - Respiratory Exam Respiratory Exam: Clear to Ausculation Bilateral, NORMAL BREATHING PATTERN - Cardiovascular Exam Cardiovascular Exam: REGULAR RHYTHM, RRR, +S1, +S2 - GI/Abdominal Exam GI & Abdominal Exam: Soft, Normal Bowel Sounds. absent: Distended, Tenderness Additional comments: PEG - Extremities Exam Extremities Exam: Full ROM, Normal Inspection - Neurological Exam Neurological Exam: Alert, Awake, Oriented x3 - Psychiatric Exam Psychiatric exam: Normal Affect, Normal Mood - Skin Skin Exam: Dry, Intact, Normal Color, Warm Assessment and Plan - Assessment and Plan (Free Text) Assessment: 1. Symptomatic Acute Anemia 2. 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 s/p PEG 4. Hx of Alcoholic Cirrhosis Plan: -Pt with likely oozing/bleeding from tumor, PEG was irrigated and flushed +hematin yesterday -Rectal exam negative with brown stool, no overt GI bleeding -Hgb 9.1 s/p 3U PRBCs -Supportive care at this time with blood transfusions -Recommend IV PPI BID -Clear liquid diet, no solid food by mouth ever with GE/esophageal mass -Can use PEG today for Ensure clear tid and if no issues can start TF for dinner -No plan for endoscopic evaluation at this time -Will monitor closely and if any changes will re-evaluate for EGD -Recommend Oncology consult for further treatment plan -Will continue to follow pt, please call with any questions or concerns <Ramiro Aaron - Last Filed: 12/12/18 16:30> Objective - Vital Signs/Intake and Output Vital Signs (last 24 hours): Temp Pulse Resp BP Pulse Ox 98.0 F 83 20 152/86 H 95 12/12/18 08:53 12/12/18 08:53 12/12/18 08:53 12/12/18 08:53 12/12/18 08:53 Intake and Output: 12/12/18 12/12/18 06:59 18:59 Intake Total 1600 700 Output Total 1650 900 Balance -50 -200 - Medications Medications: Current Medications Dextrose (Dextrose 50% Inj) 0 ml IV STAT PRN; Protocol PRN Reason: Hypoglycemia Protocol Dextrose (Glutose 15) 0 gm PO ONCE PRN; Protocol PRN Reason: Hypoglycemia Protocol Ferrous Sulfate (Feosol Liq) 300 mg PO BID [facility] Folic Acid (Folic Acid) 1 mg PEG DAILY [facility] Last Admin: 12/12/18 10:55 Dose: 1 mg Glucagon (Glucagen Diagnostic Kit) 0 mg IM STAT PRN; Protocol PRN Reason: Hypoglycemia Protocol Dextrose (Dextrose 5% In Water 1000 Ml) 1,000 mls @ 0 mls/hr IV .Q0M PRN; Protocol PRN Reason: Hypoglycemia Protocol Insulin Human Regular (Novolin R) 0 unit SC ACHS [facility]; Protocol Last Admin: 12/12/18 11:27 Dose: 1 units Mirtazapine (Remeron) 30 mg PEG HS [facility] Last Admin: 12/11/18 22:23 Dose: 30 mg Multivitamins/Vitamin C (Multi-Delyn Liquid) 5 ml PEG DAILY [facility] Last Admin: 12/12/18 10:55 Dose: 5 ml Nicotine (Nicoderm Cq) 1 patch TD DAILY [facility] Stop: 12/23/18 11:30 Last Admin: 12/12/18 10:55 Dose: 1 patch Pantoprazole Sodium (Protonix Inj) 40 mg IVP Q12H [facility] Last Admin: 12/12/18 06:05 Dose: 40 mg Sertraline HCl (Zoloft) 50 mg PO DAILY [facility] Last Admin: 12/12/18 10:55 Dose: 50 mg Thiamine HCl (Vitamin B1 Tab) 100 mg PEG DAILY [facility] Last Admin: 12/12/18 10:55 Dose: 100 mg - Labs Labs: 12/12/18 07:30 12/12/18 07:30 PT 14.7 SECONDS (9.7-12.2) H 12/11/18 02:40 INR 1.3 12/11/18 02:40 APTT 22.0 SECONDS (21-34) 12/11/18 02:40 Attending/Attestation - Attestation I have personally seen and examined this patient.: Yes I have fully participated in the care of the patient.: Yes I have reviewed all pertinent clinical information, including history, physical exam and plan: Yes Notes (Text): 12/12/18 16:28 I have seen and examined patient with GI fellow. No acute events overnight, he is seen resting in bed comfortably. He denies abdominal pain, nausea, vomiting, fever/chills. Tolerating PO liquids without difficulty. Review of vitals from today are normal. Esophageal squamous cell cancer Anemia Dysphagia, s/p PEG placement ETOH cirrhosis - Clear liquid diet as tolerated, would not suggest advancing diet past this given obstructive esophageal lesion - H/H stable, s/p PRBC transfusion, continue to monitor. No clinical signs of overt bleeding noted. - Continue with PPI therapy - May resume tube feeding as tolerated - Follow up oncology recommendations - No further planned GI intervention at this time, will sign off case. Please reconsult as necessary, thank you.
[2018-12-12 09:32] LABS: ANISOCYTOSIS SLIGHT; BANDS 1 % (0-2); EOSINOPHIL 4 % (0-4); HYPOCHROMIC SLIGHT; LYMPHOCYTE 9 % (20-40); MONOCYTE 6 % (0-10); NEUTROPHIL 80 % (50-75); PLATELET ESTIMATE NORMAL (NORMAL); POIKILOCYTOSIS SLIGHT; TOTAL CELLS COUNTED 100
[2018-12-12 09:33] LABS: OVALOCYTES SLIGHT; TARGET CELLS SLIGHT
[2018-12-12] MEDS: Multiple Vitamins Oral Solution PEG SCH (10:55)
--- NOTE | 2018-12-12 11:26 | CARD ---
APPROVED REPORT Date of service: 12/11/2018 EKG Measurement Heart [id number] <Conclusion> Sinus rhythm with premature supraventricular complexes Abnormal QRS-T angle, consider primary T wave abnormality Abnormal ECG
[2018-12-12] MEDS ORDERED: Potassium Chloride 20 mEq/15 ml LIQ UD PEG ONE (11:45)
--- NOTE | 2018-12-12 12:42 | CP.PCM.PN ---
<Enrique Dye - Last Filed: 12/12/18 12:35> Subjective - Date & Time of Evaluation Date of Evaluation: 12/12/18 Time of Evaluation: 12:35 - Subjective Subjective: Medicine Progress Note for Dr. Sebastian's service S/E at bedside Offers no acute complaints Wanted to know when tube feeds will be restarted Denies fevers, chills, chest pain, sob, n/v, constipation or diarrhea, and dysuria. Objective - Vital Signs/Intake and Output Vital Signs (last 24 hours): Temp Pulse Resp BP Pulse Ox 98.0 F 83 20 152/86 H 95 12/12/18 08:53 12/12/18 08:53 12/12/18 08:53 12/12/18 08:53 12/12/18 08:53 Intake and Output: 12/12/18 12/12/18 06:59 18:59 Intake Total 1600 Output Total 1650 Balance -50 - Medications Medications: Current Medications Dextrose (Dextrose 50% Inj) 0 ml IV STAT PRN; Protocol PRN Reason: Hypoglycemia Protocol Dextrose (Glutose 15) 0 gm PO ONCE PRN; Protocol PRN Reason: Hypoglycemia Protocol Ferrous Sulfate (Feosol Liq) 300 mg PO BID [facility] Folic Acid (Folic Acid) 1 mg PEG DAILY [facility] Last Admin: 12/12/18 10:55 Dose: 1 mg Glucagon (Glucagen Diagnostic Kit) 0 mg IM STAT PRN; Protocol PRN Reason: Hypoglycemia Protocol Dextrose (Dextrose 5% In Water 1000 Ml) 1,000 mls @ 0 mls/hr IV .Q0M PRN; Protocol PRN Reason: Hypoglycemia Protocol Insulin Human Regular (Novolin R) 0 unit SC ACHS [facility]; Protocol Last Admin: 12/12/18 11:27 Dose: 1 units Mirtazapine (Remeron) 30 mg PEG HS [facility] Last Admin: 12/11/18 22:23 Dose: 30 mg Multivitamins/Vitamin C (Multi-Delyn Liquid) 5 ml PEG DAILY [facility] Last Admin: 12/12/18 10:55 Dose: 5 ml Nicotine (Nicoderm Cq) 1 patch TD DAILY [facility] Stop: 12/23/18 11:30 Last Admin: 12/12/18 10:55 Dose: 1 patch Pantoprazole Sodium (Protonix Inj) 40 mg IVP Q12H [facility] Last Admin: 12/12/18 06:05 Dose: 40 mg Sertraline HCl (Zoloft) 50 mg PO DAILY [facility] Last Admin: 12/12/18 10:55 Dose: 50 mg Thiamine HCl (Vitamin B1 Tab) 100 mg PEG DAILY [facility] Last Admin: 12/12/18 10:55 Dose: 100 mg - Labs Labs: 12/12/18 07:30 12/12/18 07:30 PT 14.7 SECONDS (9.7-12.2) H 12/11/18 02:40 INR 1.3 12/11/18 02:40 APTT 22.0 SECONDS (21-34) 12/11/18 02:40 - Additional Findings Additional findings: - Constitutional Appears: Non-toxic, No Acute Distress, Cachectic - Head Exam Head Exam: NORMAL INSPECTION, NORMOCEPHALIC - Eye Exam Eye Exam: EOMI, Normal appearance. absent: Nystagmus, Scleral icterus - ENT Exam ENT Exam: Mucous Membranes Dry - Respiratory Exam Respiratory Exam: Clear to Ausculation Bilateral, NORMAL BREATHING PATTERN. absent: Rhonchi, Wheezes - Cardiovascular Exam Cardiovascular Exam: REGULAR RHYTHM, +S1, +S2 - GI/Abdominal Exam GI & Abdominal Exam: Soft, Normal Bowel Sounds. absent: Rigid, Tenderness Additional comments: PEG tube intact with no signs of surrounding infection - Extremities Exam Extremities Exam: Normal Inspection. absent: Calf Tenderness, Pedal Edema - Back Exam Back Exam: NORMAL INSPECTION - Neurological Exam Neurological Exam: Awake, Oriented x3 - Psychiatric Exam Psychiatric exam: Normal Affect, Normal Mood - Skin Skin Exam: Dry, Normal Color Additional comments: sacrum area: With 2 reddened areas likely stage 2 ulcers Assessment and Plan - Assessment and Plan (Free Text) Assessment: 58 yo male w/ PMH of cirrhosis, DM, alcohol and tobacco use disorder, hx of bacteremmia and GE squamous cell cancer admitted for symptomatic anemia. Anemia * GI (Dr. 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 Aaron) on board-->help appreciated * Patient is S/P Upper EGD on 11/12/18 and pathology from biopsy has confirmed * Heme/Oncologist Dr. Melody Paredes recommendation: outpatient PET Scan for staging and if NO mets then Chemo+Radiation and Surgical evaluation (from prior admission); still on PET scan * Palliative Care Nurse Rosas- consulted Diarrhea * C diff studies pending * Fecal leukocytes pending Hx of Sepsis w/ Bacteremia, UTI, Empyem Urinary tract infection Bacteremia Empyema * Code sepsis 11/08/18 * Blood culture (11/08/18): Klebsiella pneumoniae * Repeat Blood culture (11/11/18): finalized as negative at 5 days * Urine culture (11/08/18): Enterococcus Faecalis * Repeat Urine Culture (11/15/18): NO growth * Pleural fluid (11/09/18): Streptococcus anginosus which is sensitive to Vancomycin which the patient was restarted on 11/11/18 please refer to prior admission for full treatment details Cirrhosis * GI (Dr. Aaron)- recs appreciated * CT Chest/Abdomen/pelvis IV contrast (11/08/18): prior amount of ascites and an asarca has improved. further findings per report * Abdominal US (08/18/18): limited study. echogenic liver may be seen in hepatic parenchymal disease or fatty infiltrate. nodular hepatic contour. choleli thiasis. gallbladder wall thickening/pericholecystic edema. negative sonographic Cespedes's small abdominal ascites * Hepatitis Panel negative in prior admissions * Patient notes he has drinking 3 shots of vodka X 30 years. Diabetes mellitus 2 * Hgba1c: 8.1 * RISS Q6H * Accuchecks Q6H Adjustment disorder with depressed mood * increase Zoloft to 50mg QD * Increase remeron to 30mg HS Alcohol use disorder * Folic acid 1mg PO Daily * MVI tab PO daily * Thiamine 100mg PO daily Tobacco use * 1 ppd X30 years * Nicotine patch daily 21g taper over 12 weeks * Advised smoking cessation Cachexia * Related to alcohol, smoking, malnutrition, AND likely related to suspicious GE mass * Ensure clear through PEG, followed by resuming of tube feeds in PM with skein spooler recommendations * NS flushes 250cc after bolus feeds; patient must be upright at 60 degrees s/p feeds for an zahra * Ulcer of sacral region, stage 2 * frequent repositioning to prevent further skin breakdown * Nursing wound care referral- recs appreciated Prophylactic measure * PT/OT eval * Protonix 40mg IV q12H * DNI/DNR * SCDs, no chem AC in setting of bleed * Clear Liquid diet Disposition: will restart tube feeds in PM and if no cx by AM will d/c likely if H&H stable GI ppx: Florastor 1 cap po bid DVT ppx: no chemical AC, SCDs Case d/w Dr. Sebastian PGY-1 Enrique Dye <Nestor Sebastian - Last Filed: 12/15/18 19:38> Objective - Vital Signs/Intake and Output Vital Signs (last 24 hours): Temp Pulse Resp BP Pulse Ox 98.2 F 75 20 130/78 95 12/15/18 08:34 12/15/18 08:34 12/15/18 08:34 12/15/18 08:34 12/15/18 08:34 - Labs Labs: 12/15/18 06:02 12/15/18 06:02 PT 14.7 SECONDS (9.7-12.2) H 12/11/18 02:40 INR 1.3 12/11/18 02:40 APTT 22.0 SECONDS (21-34) 12/11/18 02:40 Attending/Attestation - Attestation I have personally seen and examined this patient.: Yes I have fully participated in the care of the patient.: Yes I have reviewed all pertinent clinical information, including history, physical exam and plan: Yes Notes (Text): 12/15/18 19:37 This is a late entry. Care of this patient was gone over in detail with resident Dr. Dye. Sacral Ulcer dressing with medihoney and optifoam dressing was applied by me. Nestor Sebastian D.O.
[2018-12-12] MEDS: Ferrous Sulfate 300 mg/5 mL Liq UD PO SCH (20:17)
--- NOTE | 2018-12-13 07:15 | CP.PCM.PN ---
Subjective - Date & Time of Evaluation Date of Evaluation: 12/13/18 Time of Evaluation: 12:56 - Subjective Subjective: Medicine Progress Note for Dr. Sebastian's service S/E at bedside No complications with tube feed boluses Spoke with Samanta (patient sister), informed me that she would be visiting patient tomorrow Denies fevers, chills, chest pain, sob, n/v, constipation or diarrhea, and dysuria. Objective - Vital Signs/Intake and Output Vital Signs (last 24 hours): Temp Pulse Resp BP Pulse Ox 97.8 F 82 20 138/83 96 12/13/18 01:00 12/13/18 01:00 12/13/18 01:00 12/13/18 01:00 12/13/18 01:00 Intake and Output: 12/13/18 12/13/18 06:59 18:59 Intake Total 1213 Output Total 1300 Balance -87 - Medications Medications: Current Medications Dextrose (Dextrose 50% Inj) 0 ml IV STAT PRN; Protocol PRN Reason: Hypoglycemia Protocol Dextrose (Glutose 15) 0 gm PO ONCE PRN; Protocol PRN Reason: Hypoglycemia Protocol Ferrous Sulfate (Feosol Liq) 300 mg PO BID [facility] Last Admin: 12/12/18 20:17 Dose: 300 mg Folic Acid (Folic Acid) 1 mg PEG DAILY [facility] Last Admin: 12/12/18 10:55 Dose: 1 mg Glucagon (Glucagen Diagnostic Kit) 0 mg IM STAT PRN; Protocol PRN Reason: Hypoglycemia Protocol Dextrose (Dextrose 5% In Water 1000 Ml) 1,000 mls @ 0 mls/hr IV .Q0M PRN; Protocol PRN Reason: Hypoglycemia Protocol Insulin Human Regular (Novolin R) 0 unit SC ACHS [facility]; Protocol Last Admin: 12/12/18 21:46 Dose: Not Given Mirtazapine (Remeron) 30 mg PEG HS [facility] Last Admin: 12/12/18 21:44 Dose: 30 mg Multivitamins/Vitamin C (Multi-Delyn Liquid) 5 ml PEG DAILY [facility] Last Admin: 12/12/18 10:55 Dose: 5 ml Nicotine (Nicoderm Cq) 1 patch TD DAILY [facility] Stop: 12/23/18 11:30 Last Admin: 12/12/18 10:55 Dose: 1 patch Pantoprazole Sodium (Protonix Inj) 40 mg IVP Q12H [facility] Last Admin: 12/13/18 06:25 Dose: 40 mg Sertraline HCl (Zoloft) 50 mg PO DAILY [facility] Last Admin: 12/12/18 10:55 Dose: 50 mg Thiamine HCl (Vitamin B1 Tab) 100 mg PEG DAILY [facility] Last Admin: 12/12/18 10:55 Dose: 100 mg - Labs Labs: 12/12/18 07:30 12/12/18 07:30 PT 14.7 SECONDS (9.7-12.2) H 12/11/18 02:40 INR 1.3 12/11/18 02:40 APTT 22.0 SECONDS (21-34) 12/11/18 02:40 - Additional Findings Additional findings: - Constitutional Appears: Non-toxic, No Acute Distress, Cachectic - Head Exam Head Exam: NORMAL INSPECTION, NORMOCEPHALIC - Eye Exam Eye Exam: EOMI, Normal appearance. absent: Nystagmus, Scleral icterus - ENT Exam ENT Exam: Mucous Membranes Dry - Respiratory Exam Respiratory Exam: Clear to Ausculation Bilateral, NORMAL BREATHING PATTERN. absent: Rhonchi, Wheezes - Cardiovascular Exam Cardiovascular Exam: REGULAR RHYTHM, +S1, +S2 - GI/Abdominal Exam GI & Abdominal Exam: Soft, Normal Bowel Sounds. absent: Rigid, Tenderness Additional comments: PEG tube intact with no signs of surrounding infection - Extremities Exam Extremities Exam: Normal Inspection. absent: Calf Tenderness, Pedal Edema - Back Exam Back Exam: NORMAL INSPECTION - Neurological Exam Neurological Exam: Awake, Oriented x3 - Psychiatric Exam Psychiatric exam: Normal Affect, Normal Mood - Skin Skin Exam: Dry, Normal Color Additional comments: sacrum area: With 2 reddened areas likely stage 2 ulcers Assessment and Plan - Assessment and Plan (Free Text) Assessment: 58 yo male w/ PMH of cirrhosis, DM, alcohol and tobacco use disorder, hx of bacteremmia and GE squamous cell cancer admitted for symptomatic anemia. Anemia * GI (Dr. 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 Aaron) on board-->help appreciated * Patient is S/P Upper EGD on 11/12/18 and pathology from biopsy has confirmed * Heme/Oncologist Dr. Melody Paredes recommendation: outpatient PET Scan for staging and if NO mets then Chemo+Radiation and Surgical evaluation (from prior admission); still on PET scan * Palliative Care Nurse Rosas- consulted Diarrhea * C diff studies pending * Fecal leukocytes pending Hx of Sepsis w/ Bacteremia, UTI, Empyem Urinary tract infection Bacteremia Empyema * Code sepsis 11/08/18 * Blood culture (11/08/18): Klebsiella pneumoniae * Repeat Blood culture (11/11/18): finalized as negative at 5 days * Urine culture (11/08/18): Enterococcus Faecalis * Repeat Urine Culture (11/15/18): NO growth * Pleural fluid (11/09/18): Streptococcus anginosus which is sensitive to Vancomycin which the patient was restarted on 11/11/18 please refer to prior admission for full treatment details Cirrhosis * GI (Dr. Aaron)- recs appreciated * CT Chest/Abdomen/pelvis IV contrast (11/08/18): prior amount of ascites and anasarca has improved. further findings per report * Abdominal US (08/18/18): limited study. echogenic liver may be seen in hepatic parenchymal disease or fatty infiltrate. nodular hepatic contour. cholelithiasis. gallbladder wall thickening/pericholecystic edema. negative sonographic Cespedes's small abdominal ascites * Hepatitis Panel negative in prior admissions * Patient notes he has drinking 3 shots of vodka X 30 years. Diabetes mellitus 2 * Hgba1c: 8.1 * RISS Q6H * Accuchecks Q6H Adjustment disorder with depressed mood * increase Zoloft to 50mg QD * Increase remeron to 30mg HS Alcohol use disorder * Folic acid 1mg PO Daily * MVI tab PO daily * Thiamine 100mg PO daily Tobacco use * 1 ppd X30 years * Nicotine patch daily 21g taper over 12 weeks * Advised smoking cessation Cachexia * Related to alcohol, smoking, malnutrition, AND likely related to suspicious GE mass * Ensure clear through PEG, followed by resuming of tube feeds in PM with tician recommendations * NS flushes 250cc after bolus feeds; patient must be upright at 60 degrees s/p feeds for an zahra * Ulcer of sacral region, stage 2 * frequent repositioning to prevent further skin breakdown * Nursing wound care referral- recs appreciated Prophylactic measure * PT/OT eval * Protonix 40mg IV q12H * DNI/DNR * SCDs, no chem AC in setting of bleed * Clear Liquid diet Disposition: pending seat at [employer]/shelter prior to discharge, Case management on the case GI ppx: Florastor 1 cap po bid DVT ppx: no chemical AC, SCDs Case d/w Dr. Sebastian PGY-1 Enrique Dye Plan: 58 yo male w/ PMH of cirrhosis, DM, alcohol and tobacco use disorder, hx of bacteremmia and GE squamous cell cancer admitted for symptomatic anemia. Anemia * GI (Dr. 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 Aaron) on board-->help appreciated * Patient is S/P Upper EGD on 11/12/18 and pathology from biopsy has confirmed * Heme/Oncologist Dr. Melody Paredes recommendation: outpatient PET Scan for staging and if NO mets then Chemo+Radiation and Surgical evaluation (from prior admission); still on PET scan * Palliative Care Nurse Oblilia- consulted Diarrhea * C diff studies pending * Fecal leukocytes pending Hx of Sepsis w/ Bacteremia, UTI, Empyem Urinary tract infection Bacteremia Empyema * Code sepsis 11/08/18 * Blood culture (11/08/18): Klebsiella pneumoniae * Repeat Blood culture (11/11/18): finalized as negative at 5 days * Urine culture (11/08/18): Enterococcus Faecalis * Repeat Urine Culture (11/15/18): NO growth * Pleural fluid (11/09/18): Streptococcus anginosus which is sensitive to Vancomycin which the patient was restarted on 11/11/18 please refer to prior admission for full treatment details Cirrhosis * GI (Dr. Aaron)- recs appreciated * CT Chest/Abdomen/pelvis IV contrast (11/08/18): prior amount of ascites and anasarca has improved. further findings per report * Abdominal US (08/18/18): limited study. echogenic liver may be seen in hepatic parenchymal disease or fatty infiltrate. nodular hepatic contour. cholelithiasis. gallbladder wall thickening/pericholecystic edema. negative sonographic Cespedes's small abdominal ascites * Hepatitis Panel negative in prior admissions * Patient notes he has drinking 3 shots of vodka X 30 years. Diabetes mellitus 2 * Hgba1c: 8.1 * RISS Q6H * Accuchecks Q6H Adjustment disorder with depressed mood * increase Zoloft to 50mg QD * Increase remeron to 30mg HS Alcohol use disorder * Folic acid 1mg PO Daily * MVI tab PO daily * Thiamine 100mg PO daily Tobacco use * 1 ppd X30 years * * Nicotine patch daily 21g taper over 12 weeks * Advised smoking cessation Cachexia * Related to alcohol, smoking, malnutrition, AND likely related to suspicious GE mass * Ensure clear through PEG, followed by resuming of tube feeds in PM with race and sports book writer recommendations * NS flushes 250cc after bolus feeds; patient must be upright at 60 degrees s/p feeds for an zahra * Ulcer of sacral region, stage 2 * frequent repositioning to prevent further skin breakdown * Nursing wound care referral- recs appreciated Prophylactic measure * PT/OT eval * Protonix 40mg IV q12H * DNI/DNR * SCDs, no chem AC in setting of bleed * Clear Liquid diet Disposition: Patient will require multiple days in hospitalization 2/2 to social issues. Patient was removed from his seat at his [employer]/shelter 2/2 insurance issues. Case Management aware of the situation and in process of restoring patient's spot GI ppx: Florastor 1 cap po bid DVT ppx: no chemical AC, SCDs Case d/w Dr. Sebastian PGY-1 Enrique Dye
[2018-12-13 07:42] LABS: BASO % 0.3 % (0.0-2.0); EOS # 0.5 K/uL (0.0-0.7); HEMOGLOBIN 9.4 g/dL (12.0-18.0); LYMPH # 0.7 K/uL (1.0-4.3); LYMPH % 4.6 % (20.0-40.0); MEAN CELL VOLUME 81.9 fL (80.0-94.0); MEAN CORPUSCULAR HEMOGLOBIN 27.6 pg (27.0-31.0); MEAN CORPUSCULAR HGB CONC 33.7 g/dL (33.0-37.0); MEAN PLATELET VOLUME 8.7 fL (7.2-11.7); MONO # 1.2 K/uL (0.0-0.8); MONO % 7.8 % (0.0-10.0); NEUT # 12.9 K/uL (1.8-7.0); NEUT % 84.3 % (50.0-75.0); PLATELET COUNT 280 K/uL (130-400); RED CELL DISTRIBUTION WIDTH 21.4 % (11.5-14.5); WHITE BLOOD COUNT 15.4 K/uL (4.8-10.8)
[2018-12-13] MEDS: (Novolin R) Insulin Human Regular 100 units/ml vial SC SCH ×4 (08:09→21:41)
[2018-12-13 08:16] LABS: ALB/GLOB RATIO 0.7 (1.0-2.1); ALBUMIN 2.2 g/dL (3.5-5.0); ALT/SGPT 17 U/L (21-72); AST/SGOT 17 U/L (17-59); BLOOD UREA NITROGEN 13 mg/dL (9-20); CALCIUM 10.6 mg/dl (8.6-10.4); GFR NON-AFRICAN AMERICAN > 60
[2018-12-13 09:11] LABS: ANISOCYTOSIS SLIGHT; BANDS 3 % (0-2); EOSINOPHIL 4 % (0-4); HYPOCHROMIC SLIGHT; LYMPHOCYTE 3 % (20-40); MONOCYTE 5 % (0-10); NEUTROPHIL 85 % (50-75); PLATELET ESTIMATE NORMAL (NORMAL); POIKILOCYTOSIS SLIGHT; TARGET CELLS SLIGHT; TOTAL CELLS COUNTED 100
[2018-12-13] MEDS ORDERED: Potassium Chloride 20 mEq/15 ml LIQ UD PEG ONE (09:12)
[2018-12-13] MEDS: Ferrous Sulfate 300 mg/5 mL Liq UD PO SCH ×2 (10:13→17:12)
[2018-12-13] MEDS: Multiple Vitamins Oral Solution PEG SCH (10:13)
[2018-12-14 01:55] VITALS: RESP 20
[2018-12-14 07:37] LABS: BASO # 0.1 K/uL (0.0-0.2); BASO % 0.4 % (0.0-2.0); EOS # 0.4 K/uL (0.0-0.7); EOS % 2.4 % (0.0-4.0); HEMOGLOBIN 9.3 g/dL (12.0-18.0); LYMPH # 0.7 K/uL (1.0-4.3); MEAN CELL VOLUME 82.8 fL (80.0-94.0); MEAN CORPUSCULAR HGB CONC 33.8 g/dL (33.0-37.0); MEAN PLATELET VOLUME 8.6 fL (7.2-11.7); MONO # 0.8 K/uL (0.0-0.8); MONO % 5.2 % (0.0-10.0); NEUT # 12.8 K/uL (1.8-7.0); NRBC % 0.1 % (0.0-2.0); PLATELET COUNT 232 K/uL (130-400); RBC 3.32 Mil/uL (4.40-5.90); RED CELL DISTRIBUTION WIDTH 21.1 % (11.5-14.5); WHITE BLOOD COUNT 14.8 K/uL (4.8-10.8)
[2018-12-14] MEDS: (Novolin R) Insulin Human Regular 100 units/ml vial SC SCH ×4 (08:18→21:38)
[2018-12-14 08:38] LABS: ALB/GLOB RATIO 0.7 (1.0-2.1); ALBUMIN 2.2 g/dL (3.5-5.0); ALT/SGPT 25 U/L (21-72); AST/SGOT 17 U/L (17-59); BLOOD UREA NITROGEN 13 mg/dL (9-20); CALCIUM 10.2 mg/dl (8.6-10.4); GFR NON-AFRICAN AMERICAN > 60
[2018-12-14] MEDS: Multiple Vitamins Oral Solution PEG SCH (09:16)
[2018-12-14] MEDS: Ferrous Sulfate 300 mg/5 mL Liq UD PO SCH ×3 (09:16→18:00)
--- NOTE | 2018-12-14 09:51 | CP.PCM.PN ---
<HardikXanderrenetta - Last Filed: 12/14/18 16:49> Subjective - Date & Time of Evaluation Date of Evaluation: 12/14/18 Time of Evaluation: 10:35 - Subjective Subjective: Medicine Progress Note for Dr. Sebastian's service S/E at bedside Reports mild discomfort when oob Denies fevers, chills, chest pain, sob, n/v, constipation or diarrhea, and dysuria Objective - Vital Signs/Intake and Output Vital Signs (last 24 hours): Temp Pulse Resp BP Pulse Ox 98.4 F 85 20 101/70 94 L 12/14/18 07:00 12/14/18 04:20 12/14/18 04:20 12/14/18 07:00 12/14/18 04:20 Intake and Output: 12/14/18 12/14/18 06:59 18:59 Intake Total 1290 Output Total 1100 Balance 190 - Medications Medications: Current Medications Dextrose (Dextrose 50% Inj) 0 ml IV STAT PRN; Protocol PRN Reason: Hypoglycemia Protocol Dextrose (Glutose 15) 0 gm PO ONCE PRN; Protocol PRN Reason: Hypoglycemia Protocol Ferrous Sulfate (Feosol Liq) 300 mg PO BID [facility] Last Admin: 12/14/18 09:16 Dose: 300 mg Folic Acid (Folic Acid) 1 mg PEG DAILY [facility] Last Admin: 12/14/18 09:16 Dose: 1 mg Glucagon (Glucagen Diagnostic Kit) 0 mg IM STAT PRN; Protocol PRN Reason: Hypoglycemia Protocol Insulin Human Regular (Novolin R) 0 unit SC ACHS [facility]; Protocol Last Admin: 12/14/18 08:18 Dose: 5 units Mirtazapine (Remeron) 30 mg PEG HS [facility] Last Admin: 12/13/18 21:38 Dose: 30 mg Multivitamins/Vitamin C (Multi-Delyn Liquid) 5 ml PEG DAILY [facility] Last Admin: 12/14/18 09:16 Dose: 5 ml Nicotine (Nicoderm Cq) 1 patch TD DAILY [facility] Stop: 12/23/18 11:30 Last Admin: 12/14/18 09:16 Dose: 1 patch Pantoprazole Sodium (Protonix Inj) 40 mg IVP Q12H [facility] Last Admin: 12/14/18 06:03 Dose: 40 mg Sertraline HCl (Zoloft) 50 mg PO DAILY [facility] Last Admin: 12/14/18 09:16 Dose: 50 mg Thiamine HCl (Vitamin B1 Tab) 100 mg PEG DAILY [facility] Last Admin: 12/14/18 09:16 Dose: 100 mg - Labs Labs: 12/14/18 07:21 12/14/18 07:21 PT 14.7 SECONDS (9.7-12.2) H 12/11/18 02:40 INR 1.3 12/11/18 02:40 APTT 22.0 SECONDS (21-34) 12/11/18 02:40 - Constitutional Appears: Non-toxic, No Acute Distress - Head Exam Head Exam: NORMAL INSPECTION, NORMOCEPHALIC - Eye Exam Eye Exam: EOMI, Normal appearance. absent: Nystagmus, Scleral icterus - ENT Exam ENT Exam: Mucous Membranes Moist - Respiratory Exam Respiratory Exam: Clear to Ausculation Bilateral, NORMAL BREATHING PATTERN. absent: Rales, Rhonchi, Wheezes - Cardiovascular Exam Cardiovascular Exam: REGULAR RHYTHM, +S1, +S2 - GI/Abdominal Exam GI & Abdominal Exam: Soft, Normal Bowel Sounds. absent: Tenderness Additional comments: PEG tube appreciated, no active signs of infection - Extremities Exam Extremities Exam: Normal Inspection - Neurological Exam Neurological Exam: Alert, Awake, Oriented x3 - Psychiatric Exam Psychiatric exam: Normal Affect, Normal Mood - Skin Skin Exam: Dry, Intact, Normal Color Assessment and Plan - Assessment and Plan (Free Text) Assessment: 58 yo male w/ PMH of cirrhosis, DM, alcohol and tobacco use disorder, hx of bacteremmia and GE squamous cell cancer admitted for symptomatic anemia. Anemia * GI (Dr. 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 Aaron) on board-->help appreciated * Patient is S/P Upper EGD on 11/12/18 and pathology from biopsy has confirmed * Heme/Oncologist Dr. Melody Paredes recommendation: outpatient PET Scan for staging and if NO mets then Chemo+Radiation and Surgical evaluation (from prior admi ssion); still on PET scan * Palliative Care Nurse Rosas- consulted Diarrhea * C diff studies pending * Fecal leukocytes pending Hx of Sepsis w/ Bacteremia, UTI, Empyem Urinary tract infection Bacteremia Empyema * Code sepsis 11/08/18 * Blood culture (11/08/18): Klebsiella pneumoniae * Repeat Blood culture (11/11/18): finalized as negative at 5 days * Urine culture (11/08/18): Enterococcus Faecalis * Repeat Urine Culture (11/15/18): NO growth * Pleural fluid (11/09/18): Streptococcus anginosus which is sensitive to Van comycin which the patient was restarted on 11/11/18 please refer to prior admission for full treatment details Cirrhosis * GI (Dr. Aaron)- recs appreciated * CT Chest/Abdomen/pelvis IV contrast (11/08/18): prior amount of ascites and anasarca has improved. further findings per report * Abdominal US (08/18/18): limited study. echogenic liver may be seen in hepatic parenchymal disease or fatty infiltrate. nodular hepatic contour. cholelithiasis. gallbladder wall thickening/pericholecystic edema. negative sonographic Cespedes's small abdominal ascites * Hepatitis Panel negative in prior admissions * Patient notes he has drinking 3 shots of vodka X 30 years. Diabetes mellitus 2 * Hgba1c: 8.1 * RISS Q6H * Accuchecks Q6H Adjustment disorder with depressed mood * increase Zoloft to 50mg QD * Increase remeron to 30mg HS Alcohol use disorder * Folic acid 1mg PO Daily * MVI tab PO daily * Thiamine 100mg PO daily Tobacco use * 1 ppd X30 years * Nicotine patch daily 21g taper over 12 weeks * Advised smoking cessation Cachexia * Related to alcohol, smoking, malnutrition, AND likely related to suspicious GE mass * Ensure clear through PEG, followed by resuming of tube feeds in PM with copy technician recommendations * NS flushes 250cc after bolus feeds; patient must be upright at 60 degrees s/p feeds for an zahra * Ulcer of sacral region, stage 2 * frequent repositioning to prevent further skin breakdown * Nursing wound care referral- recs appreciated Prophylactic measure * PT/OT eval * Protonix 40mg IV q12H * DNI/DNR * SCDs, no chem AC in setting of bleed * Clear Liquid diet Disposition: Patient will require multiple days in hospitalization 2/2 to social issues. Patient was removed from his seat at his [employer] 2/2 insurance issues. Case Management aware of the situation and in process of restoring patient's spot GI ppx: Florastor 1 cap po bid DVT ppx: no chemical AC, SCDs Case d/w Dr. Sebastian PGY-1 Enrique Dye <Nestor Sebastian - Last Filed: 12/16/18 19:06> Objective - Vital Signs/Intake and Output Vital Signs (last 24 hours): Temp Pulse Resp BP Pulse Ox 98.2 F 75 20 130/78 95 12/15/18 08:34 12/15/18 08:34 12/15/18 08:34 12/15/18 08:34 12/15/18 08:34 - Labs Labs: 12/15/18 06:02 12/15/18 06:02 PT 14.7 SECONDS (9.7-12.2) H 12/11/18 02:40 INR 1.3 12/11/18 02:40 APTT 22.0 SECONDS (21-34) 12/11/18 02:40 Attending/Attestation - Attestation I have personally seen and examined this patient.: Yes I have fully participated in the care of the patient.: Yes I have reviewed all pertinent clinical information, including history, physical exam and plan: Yes Notes (Text): 12/16/18 19:04 This is a late entry. Care of this patient was gone over with Dr. Dye. Nestor Sebastian D.O.
[2018-12-14 09:53] LABS: ANISOCYTOSIS MODERATE; BANDS 9 % (0-2); EOSINOPHIL 5 % (0-4); LYMPHOCYTE 4 % (20-40); MONOCYTE 4 % (0-10); NEUTROPHIL 78 % (50-75); PLATELET ESTIMATE NORMAL (NORMAL); TOTAL CELLS COUNTED 100
[2018-12-14 09:58] LABS: OVALOCYTES SLIGHT
--- NOTE | 2018-12-14 10:53 | CP.PCM.PN ---
<Enrique Dye - Last Filed: 12/14/18 10:51> Subjective - Date & Time of Evaluation Date of Evaluation: 12/13/18 Time of Evaluation: 11:00 - Subjective Subjective: Re-entry for 12/13/18 progress note Medicine Progress Note for Dr. Sebastian's service S/E at bedside No complications with tube feed boluses Spoke with Samanta (patient sister), informed me that she would be visiting patient tomorrow Denies fevers, chills, chest pain, sob, n/v, constipation or diarrhea, and dysuria. Objective - Vital Signs/Intake and Output Vital Signs (last 24 hours): Temp Pulse Resp BP Pulse Ox 98.4 F 85 20 101/70 94 L 12/14/18 07:00 12/14/18 04:20 12/14/18 04:20 12/14/18 07:00 12/14/18 04:20 Intake and Output: 12/14/18 12/14/18 06:59 18:59 Intake Total 1290 Output Total 1100 Balance 190 - Medications Medications: Current Medications Dextrose (Dextrose 50% Inj) 0 ml IV STAT PRN; Protocol PRN Reason: Hypoglycemia Protocol Dextrose (Glutose 15) 0 gm PO ONCE PRN; Protocol PRN Reason: Hypoglycemia Protocol Ferrous Sulfate (Feosol Liq) 300 mg PO BID [facility] Last Admin: 12/14/18 09:16 Dose: 300 mg Folic Acid (Folic Acid) 1 mg PEG DAILY [facility] Last Admin: 12/14/18 09:16 Dose: 1 mg Glucagon (Glucagen Diagnostic Kit) 0 mg IM STAT PRN; Protocol PRN Reason: Hypoglycemia Protocol Insulin Human Regular (Novolin R) 0 unit SC ACHS [facility]; Protocol Last Admin: 12/14/18 08:18 Dose: 5 units Mirtazapine (Remeron) 30 mg PEG HS [facility] Last Admin: 12/13/18 21:38 Dose: 30 mg Multivitamins/Vitamin C (Multi-Delyn Liquid) 5 ml PEG DAILY [facility] Last Admin: 12/14/18 09:16 Dose: 5 ml Nicotine (Nicoderm Cq) 1 patch TD DAILY [facility] Stop: 12/23/18 11:30 Last Admin: 12/14/18 09:16 Dose: 1 patch Pantoprazole Sodium (Protonix Inj) 40 mg IVP Q12H [facility] Last Admin: 12/14/18 06:03 Dose: 40 mg Sertraline HCl (Zoloft) 50 mg PO DAILY [facility] Last Admin: 12/14/18 09:16 Dose: 50 mg Thiamine HCl (Vitamin B1 Tab) 100 mg PEG DAILY [facility] Last Admin: 12/14/18 09:16 Dose: 100 mg - Labs Labs: 12/14/18 07:21 12/14/18 07:21 PT 14.7 SECONDS (9.7-12.2) H 12/11/18 02:40 INR 1.3 12/11/18 02:40 APTT 22.0 SECONDS (21-34) 12/11/18 02:40 - Additional Findings Additional findings: - Constitutional Appears: Non-toxic, No Acute Distress, Cachectic - Head Exam Head Exam: NORMAL INSPECTION, NORMOCEPHALIC - Eye Exam Eye Exam: EOMI, Normal appearance. absent: Nystagmus, Scleral icterus - ENT Exam ENT Exam: Mucous Membranes Dry - Respiratory Exam Respiratory Exam: Clear to Ausculation Bilateral, NORMAL BREATHING PATTERN. absent: Rhonchi, Wheezes - Cardiovascular Exam Cardiovascular Exam: REGULAR RHYTHM, +S1, +S2 - GI/Abdominal Exam GI & Abdominal Exam: Soft, Normal Bowel Sounds. absent: Rigid, Tenderness Additional comments: PEG tube intact with no signs of surrounding infection - Extremities Exam Extremities Exam: Normal Inspection. absent: Calf Tenderness, Pedal Edema - Back Exam Back Exam: NORMAL INSPECTION - Neurological Exam Neurological Exam: Awake, Oriented x3 - Psychiatric Exam Psychiatric exam: Normal Affect, Normal Mood - Skin Skin Exam: Dry, Normal Color Additional comments: sacrum area: With 2 reddened areas likely stage 2 ulcers Assessment and Plan - Assessment and Plan (Free Text) Assessment: 58 yo male w/ PMH of cirrhosis, DM, alcohol and tobacco use disorder, hx of bacteremmia and GE squamous cell cancer admitted for symptomatic anemia. Anemia * GI (Dr. 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 Aaron) on board-->help appreciated * Patient is S/P Upper EGD on 11/12/18 and pathology from biopsy has confirmed * Heme/Oncologist Dr. Melody Paredes recommendation: outpatient PET Scan for staging and if NO mets then Chemo+Radiation and Surgical evaluation (from prior admission); still on PET scan * Palliative Care Nurse Rosas- consulted Diarrhea * C diff studies pending * Fecal leukocytes pending Hx of Sepsis w/ Bacteremia, UTI, Empyem Urinary tract infection Bacteremia Empyema * Code sepsis 11/08/18 * Blood culture (11/08/18): Klebsiella pneumoniae * Repeat Blood culture (11/11/18): finalized as negative at 5 days * Urine culture (11/08/18): Enterococcus Faecalis * Repeat Urine Culture (11/15/18): NO growth * Pleural fluid (11/09/18): Streptococcus anginosus which is sensitive to Vancomycin which the patient was restarted on 11/11/18 please refer to prior admission for full treatment details Cirrhosis * GI (Dr. Aaron)- recs appreciated * CT Chest/Abdomen/pelvis IV contrast (11/08/18): prior amount of ascites and anasarca has improved. further findings per report * Abdominal US (08/18/18): limited study. echogenic liver may be seen in hepatic parenchymal disease or fatty infiltrate. nodular hepatic contour. cholelithiasis. gallbladder wall thickening/pericholecystic edema. negative sonographic Cespedes's small abdominal ascites * Hepatitis Panel negative in prior admissions * Patient notes he has drinking 3 shots of vodka X 30 years. Diabetes mellitus 2 * Hgba1c: 8.1 * RISS Q6H * Accuchecks Q6H Adjustment disorder with depressed mood * increase Zoloft to 50mg QD * Increase remeron to 30mg HS Alcohol use disorder * Folic acid 1mg PO Daily * MVI tab PO daily * Thiamine 100mg PO daily Tobacco use * 1 ppd X30 years * * Nicotine patch daily 21g taper over 12 weeks * Advised smoking cessation Cachexia * Related to alcohol, smoking, malnutrition, AND likely related to suspicious GE mass * Ensure clear through PEG, followed by resuming of tube feeds in PM with mobile game engineer recommendations * NS flushes 250cc after bolus feeds; patient must be upright at 60 degrees s/p feeds for an zahra * Ulcer of sacral region, stage 2 * frequent repositioning to prevent further skin breakdown * Nursing wound care referral- recs appreciated Prophylactic measure * PT/OT eval * Protonix 40mg IV q12H * DNI/DNR * SCDs, no chem AC in setting of bleed * Clear Liquid diet Disposition: Patient will require multiple days in hospitalization 2/2 to social issues. Patient was removed from his seat at his [employer]/long term 2/2 insurance issues. Case Management aware of the situation and in process of restoring patient's spot GI ppx: Florastor 1 cap po bid DVT ppx: no chemical AC, SCDs Case d/w Dr. Sebastian PGY-1 Enrique Dye <Nestor Sebastian - Last Filed: 12/16/18 19:07> Objective - Vital Signs/Intake and Output Vital Signs (last 24 hours): Temp Pulse Resp BP Pulse Ox 98.2 F 75 20 130/78 95 12/15/18 08:34 12/15/18 08:34 12/15/18 08:34 12/15/18 08:34 12/15/18 08:34 - Labs Labs: 12/15/18 06:02 12/15/18 06:02 PT 14.7 SECONDS (9.7-12.2) H 12/11/18 02:40 INR 1.3 12/11/18 02:40 APTT 22.0 SECONDS (21-34) 12/11/18 02:40 Attending/Attestation - Attestation I have personally seen and examined this patient.: Yes I have fully participated in the care of the patient.: Yes I have reviewed all pertinent clinical information, including history, physical exam and plan: Yes Notes (Text): 12/16/18 19:07 This is a late entry. Care of this patient was gone over with Dr. Dye. Nestor Sebastian D.O.
--- NOTE | 2018-12-15 00:41 | CP.PCM.PN ---
<Ricco Figueroa - Last Filed: 12/15/18 00:40> Subjective - Date & Time of Evaluation Date of Evaluation: 12/15/18 Time of Evaluation: 00:40 - Subjective Subjective: HOSPITALIST SERVICE Pt s/e at bedside, denies cp sob fv nv at this time, pt understands he is pending discharge to [facility] Objective - Vital Signs/Intake and Output Vital Signs (last 24 hours): Temp Pulse Resp BP Pulse Ox 99.3 F 81 20 116/66 94 L 12/14/18 15:52 12/14/18 15:52 12/14/18 15:52 12/14/18 15:52 12/14/18 15:52 Intake and Output: 12/14/18 12/15/18 18:59 06:59 Intake Total 970 Output Total 600 500 Balance -600 470 - Medications Medications: Current Medications Dextrose (Dextrose 50% Inj) 0 ml IV STAT PRN; Protocol PRN Reason: Hypoglycemia Protocol Dextrose (Glutose 15) 0 gm PO ONCE PRN; Protocol PRN Reason: Hypoglycemia Protocol Ferrous Sulfate (Feosol Liq) 300 mg PO BID [facility] Last Admin: 12/14/18 18:00 Dose: Not Given Folic Acid (Folic Acid) 1 mg PEG DAILY [facility] Last Admin: 12/14/18 09:16 Dose: 1 mg Glucagon (Glucagen Diagnostic Kit) 0 mg IM STAT PRN; Protocol PRN Reason: Hypoglycemia Protocol Insulin Human Regular (Novolin R) 0 unit SC ACHS [facility]; Protocol Last Admin: 12/14/18 21:38 Dose: Not Given Mirtazapine (Remeron) 30 mg PEG HS [facility] Last Admin: 12/14/18 21:22 Dose: 30 mg Multivitamins/Vitamin C (Multi-Delyn Liquid) 5 ml PEG DAILY [facility] Last Admin: 12/14/18 09:16 Dose: 5 ml Nicotine (Nicoderm Cq) 1 patch TD DAILY [facility] Stop: 12/23/18 11:30 Last Admin: 12/14/18 09:16 Dose: 1 patch Pantoprazole Sodium (Protonix Inj) 40 mg IVP Q12H [facility] Last Admin: 12/14/18 21:22 Dose: 40 mg Sertraline HCl (Zoloft) 50 mg PO DAILY [facility] Last Admin: 12/14/18 09:16 Dose: 50 mg Thiamine HCl (Vitamin B1 Tab) 100 mg PEG DAILY [facility] Last Admin: 12/14/18 09:16 Dose: 100 mg - Labs Labs: 12/14/18 07:21 12/14/18 07:21 PT 14.7 SECONDS (9.7-12.2) H 12/11/18 02:40 INR 1.3 12/11/18 02:40 APTT 22.0 SECONDS (21-34) 12/11/18 02:40 - Additional Findings Additional findings: - Constitutional Appears: Non-toxic, No Acute Distress - Head Exam Head Exam: NORMAL INSPECTION, NORMOCEPHALIC - Eye Exam Eye Exam: EOMI, Normal appearance. absent: Nystagmus, Scleral icterus - ENT Exam ENT Exam: Mucous Membranes Moist - Respiratory Exam Respiratory Exam: Clear to Ausculation Bilateral, NORMAL BREATHING PATTERN. absent: Rales, Rhonchi, Wheezes - Cardiovascular Exam Cardiovascular Exam: REGULAR RHYTHM, +S1, +S2 - GI/Abdominal Exam GI & Abdominal Exam: Soft, Normal Bowel Sounds. absent: Tenderness Additional comments: PEG tube appreciated, no active signs of infection - Extremities Exam Extremities Exam: Normal Inspection - Neurological Exam Neurological Exam: Alert, Awake, Oriented x3 - Psychiatric Exam Psychiatric exam: Normal Affect, Normal Mood - Skin Skin Exam: Dry, Intact, Normal Color Assessment and Plan - Assessment and Plan (Free Text) Assessment: 58 yo male w/ PMH of cirrhosis, DM, alcohol and tobacco use disorder, hx of bacteremmia and GE squamous cell cancer admitted for symptomatic anemia. Anemia * GI (Dr. 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 Aaron) on board-->help appreciated * Patient is S/P Upper EGD on 11/12/18 and pathology from biopsy has confirmed * Heme/Oncologist Dr. Melody Paredes recommendation: outpatient PET Scan for staging and if NO mets then Chemo+Radiation and Surgical evaluation (from prior admission); still on PET scan * Palliative Care Nurse Oblilia- consulted Diarrhea * C diff studies pending * Fecal leukocytes pending Hx of Sepsis w/ Bacteremia, UTI, Empyem Urinary tract infection Bacteremia Empyema * Code sepsis 11/08/18 * Blood culture (11/08/18): Klebsiella pneumoniae * Repeat Blood culture (11/11/18): finalized as negative at 5 days * Urine culture (11/08/18): Enterococcus Faecalis * Repeat Urine Culture (11/15/18): NO growth * Pleural fluid (11/09/18): Streptococcus anginosus which is sensitive to Vancomycin which the patient was restarted on 11/11/18 please refer to prior admission for full treatment details Cirrhosis * GI (Dr. Aaron)- recs appreciated * CT Chest/Abdomen/pelvis IV contrast (11/08/18): prior amount of ascites and anasarca has improved. further findings per report * Abdominal US (08/18/18): limited study. echogenic liver may be seen in hepatic parenchymal disease or fatty infiltrate. nodular hepatic contour. cholelithiasis. gallbladder wall thickening/pericholecystic edema. negative sonographic Cespedes's small abdominal ascites * Hepatitis Panel negative in prior admissions * Patient notes he has drinking 3 shots of vodka X 30 years. Diabetes mellitus 2 * Hgba1c: 8.1 * RISS Q6H * Accuchecks Q6H Adjustment disorder with depressed mood * increase Zoloft to 50mg QD * Increase remeron to 30mg HS Alcohol use disorder * Folic acid 1mg PO Daily * MVI tab PO daily * Thiamine 100mg PO daily Tobacco use * 1 ppd X30 years * Nicotine patch daily 21g taper over 12 weeks * Advised smoking cessation Cachexia * Related to alcohol, smoking, malnutrition, AND likely related to suspicious GE mass * Ensure clear through PEG, followed by resuming of tube feeds in PM with gear machine operator general recommendations * NS flushes 250cc after bolus feeds; patient must be upright at 60 degrees s/p feeds for an zahra * Ulcer of sacral region, stage 2 * frequent repositioning to prevent further skin breakdown * Nursing wound care referral- recs appreciated Prophylactic measure * PT/OT eval * Protonix 40mg IV q12H * DNI/DNR * SCDs, no chem AC in setting of bleed * Clear Liquid diet Disposition: Patient will require multiple days in hospitalization 2/2 to social issues. Patient was removed from his seat at his [employer] 2/2 insurance issues. Case Management aware of the situation and in process of restoring patient's spot GI ppx: Florastor 1 cap po bid DVT ppx: no chemical AC, SCDs Case d/w Dr. Sebastian <Nestor Sebastian - Last Filed: 12/15/18 19:18> Objective - Vital Signs/Intake and Output Vital Signs (last 24 hours): Temp Pulse Resp BP Pulse Ox 98.2 F 75 20 130/78 95 12/15/18 08:34 12/15/18 08:34 12/15/18 08:34 12/15/18 08:34 12/15/18 08:34 - Labs Labs: 12/15/18 06:02 12/15/18 06:02 PT 14.7 SECONDS (9.7-12.2) H 12/11/18 02:40 INR 1.3 12/11/18 02:40 APTT 22.0 SECONDS (21-34) 12/11/18 02:40 Attending/Attestation - Attestation I have personally seen and examined this patient.: Yes I have fully participated in the care of the patient.: Yes I have reviewed all pertinent clinical information, including history, physical exam and plan: Yes
[2018-12-15 06:13] LABS: BASO # 0.1 K/uL (0.0-0.2); BASO % 0.4 % (0.0-2.0); EOS # 0.5 K/uL (0.0-0.7); EOS % 3.6 % (0.0-4.0); HEMOGLOBIN 8.5 g/dL (12.0-18.0); LYMPH % 7.6 % (20.0-40.0); MEAN CELL VOLUME 82.2 fL (80.0-94.0); MEAN CORPUSCULAR HEMOGLOBIN 27.1 pg (27.0-31.0); MEAN PLATELET VOLUME 8.3 fL (7.2-11.7); MONO # 0.9 K/uL (0.0-0.8); MONO % 6.7 % (0.0-10.0); NEUT # 10.7 K/uL (1.8-7.0); NEUT % 81.7 % (50.0-75.0); PLATELET COUNT 204 K/uL (130-400); RBC 3.13 Mil/uL (4.40-5.90); RED CELL DISTRIBUTION WIDTH 21.5 % (11.5-14.5); WHITE BLOOD COUNT 13.1 K/uL (4.8-10.8)
[2018-12-15 06:24] LABS: ALB/GLOB RATIO 0.7 (1.0-2.1); ALBUMIN 2.1 g/dL (3.5-5.0); ALT/SGPT 24 U/L (21-72); AST/SGOT 14 U/L (17-59); BLOOD UREA NITROGEN 13 mg/dL (9-20); CALCIUM 9.7 mg/dl (8.6-10.4); GFR NON-AFRICAN AMERICAN > 60
[2018-12-15] MEDS: (Novolin R) Insulin Human Regular 100 units/ml vial SC SCH ×2 (08:11→11:43)
[2018-12-15 08:36] VITALS: BP 130/78; PULSE 75; TEMP 98.2; O2SAT 95
[2018-12-15 08:57] LABS: BANDS 6 % (0-2); EOSINOPHIL 1 % (0-4); LYMPHOCYTE 6 % (20-40); MONOCYTE 4 % (0-10); NEUTROPHIL 83 % (50-75); PLATELET ESTIMATE NORMAL (NORMAL); TOTAL CELLS COUNTED 100
[2018-12-15 09:02] LABS: ANISOCYTOSIS MARKED; HYPOCHROMIC SLIGHT; POLYCHROMIC SLIGHT
[2018-12-15 09:04] LABS: LARGE PLATELETS PRESENT
--- NOTE | 2018-12-15 09:15 | CP.PCM.PCO ---
Physician Communication Note - Physician Communication Note Physician Communication Note: Please see above
[2018-12-15] MEDS ORDERED: Potassium Chloride 20 mEq/15 ml LIQ UD PEG ONE (09:30)
[2018-12-15] MEDS: Ferrous Sulfate 300 mg/5 mL Liq UD PO SCH (10:02)
[2018-12-15] MEDS: Multiple Vitamins Oral Solution PEG SCH (10:02)
--- NOTE | 2018-12-15 13:09 | CP.PCM.DIS ---
<Toby Tubbs - Last Filed: 12/15/18 13:23> Provider - Provider Date of Admission: 12/11/18 04:24 Attending physician: Rodríguez Latif MD Primary care physician: PMD: Dr. Price Consults: 12/11/18 06:12 Nursing Referral for Wound Care Routine Comment: Physician Instructions: Reason For Exam: stage 2 sacral ulcer 12/11/18 11:16 Nursing Referral for Palliative Care Routine Comment: Physician Instructions: Reason For Exam: Triggered by protocol 12/11/18 12:55 Palliative Care Consult Routine Comment: Consulting Provider: Doris Pillai Physician Instructions: Reason For Exam: update on goals of care Time Spent in preparation of Discharge (in minutes): 38 Hospital Course - Lab Results Lab Results: Micro Results 12/12/18 10:59 Stool Ova and Parasite Concentrate Exam - Final Most Recent Lab Values WBC 13.1 K/uL (4.8-10.8) H 12/15/18 06:02 RBC 3.13 Mil/uL (4.40-5.90) L 12/15/18 06:02 Hgb 8.5 g/dL (12.0-18.0) L 12/15/18 06:02 Hct 25.7 % (35.0-51.0) L 12/15/18 06:02 MCV 82.2 fL (80.0-94.0) 12/15/18 06:02 MCH 27.1 pg (27.0-31.0) 12/15/18 06:02 MCHC 33.0 g/dL (33.0-37.0) 12/15/18 06:02 RDW 21.5 % (11.5-14.5) H 12/15/18 06:02 Plt Count 204 K/uL (130-400) 12/15/18 06:02 MPV 8.3 fL (7.2-11.7) 12/15/18 06:02 Neut % (Auto) 81.7 % (50.0-75.0) H 12/15/18 06:02 Lymph % (Auto) 7.6 % (20.0-40.0) L 12/15/18 06:02 [place] % (Auto) 6.7 % (0.0-10.0) 12/15/18 06:02 Eos % (Auto) 3.6 % (0.0-4.0) 12/15/18 06:02 Baso % (Auto) 0.4 % (0.0-2.0) 12/15/18 06:02 Neut # (Auto) 10.7 K/uL (1.8-7.0) H 12/15/18 06:02 Lymph # (Auto) 1.0 K/uL (1.0-4.3) 12/15/18 06:02 [place] # (Auto) 0.9 K/uL (0.0-0.8) H 12/15/18 06:02 Eos # (Auto) 0.5 K/uL (0.0-0.7) 12/15/18 06:02 Baso # (Auto) 0.1 K/uL (0.0-0.2) 12/15/18 06:02 Neutrophils % (Manual) 83 % (50-75) H 12/15/18 06:02 Band Neutrophils % 6 % (0-2) H 12/15/18 06:02 Lymphocytes % (Manual) 6 % (20-40) L 12/15/18 06:02 Monocytes % (Manual) 4 % (0-10) 12/15/18 06:02 Eosinophils % (Manual) 1 % (0-4) 12/15/18 06:02 Platelet Estimate Normal (NORMAL) 12/15/18 06:02 Large Platelets Present 12/15/18 06:02 Polychromasia Slight 12/15/18 06:02 Hypochromasia (manual) Slight 12/15/18 06:02 Poikilocytosis (manual Slight 12/13/18 07:19 Basophilic Stippling Slight 12/14/18 07:21 Anisocytosis (manual) Marked 12/15/18 06:02 Target Cells Slight 12/13/18 07:19 Ovalocytes Slight 12/14/18 07:21 PT 14.7 SECONDS (9.7-12.2) H 12/11/18 02:40 INR 1.3 12/11/18 02:40 APTT 22.0 SECONDS (21-34) 12/11/18 02:40 Sodium 133 mmol/L (132-148) 12/15/18 06:02 Potassium 3.5 mmol/L (3.6-5.2) L 12/15/18 06:02 Chloride 95 mmol/L (98-107) L 12/15/18 06:02 Carbon Dioxide 30 mmol/L (22-30) 12/15/18 06:02 Anion Gap 11 (10-20) 12/15/18 06:02 BUN 13 mg/dL (9-20) 12/15/18 06:02 Creatinine 0.4 mg/dL (0.8-1.5) L 12/15/18 06:02 Est GFR ( Amer) > 60 12/15/18 06:02 Est GFR (Non-Af Amer) > 60 12/15/18 06:02 POC Glucose (mg/dL) 362 mg/dL (65-110) H 12/15/18 06:28 Random Glucose 300 mg/dL (75-110) H 12/15/18 06:02 Calcium 9.7 mg/dl (8.6-10.4) 12/15/18 06:02 Phosphorus 3.0 mg/dL (2.5-4.5) 12/12/18 07:30 Magnesium 1.8 mg/dL (1.6-2.3) 12/12/18 07:30 Iron 20 ug/dL (49-181) L 12/11/18 11:15 TIBC 160 ug/dL (250-450) L 12/11/18 11:15 % Saturation 12 (20-55) L 12/11/18 11:15 Total Bilirubin 0.5 mg/dL (0.2-1.3) 12/15/18 06:02 AST 14 U/L (17-59) L 12/15/18 06:02 ALT 24 U/L (21-72) 12/15/18 06:02 Alkaline Phosphatase 189 U/L (38-126) H 12/15/18 06:02 Total Protein 5.1 g/dL (6.3-8.3) L 12/15/18 06:02 Albumin 2.1 g/dL (3.5-5.0) L 12/15/18 06:02 Globulin 3.0 gm/dL (2.2-3.9) 12/15/18 06:02 Albumin/Globulin Ratio 0.7 (1.0-2.1) L 12/15/18 06:02 Vitamin B12 > 1000 pg/mL (239-931) H 12/11/18 11:15 Folate 15.7 ng/mL 12/11/18 11:15 Urine Color Yellow (YELLOW) 12/11/18 06:40 Urine Clarity Clear (Clear) 12/11/18 06:40 Urine pH 6.0 (5.0-8.0) 12/11/18 06:40 Ur Specific Sullivan 1.012 (1.003-1.030) 12/11/18 06:40 Urine Protein Negative mg/dL (NEGATIVE) 12/11/18 06:40 Urine Glucose (UA) 1+ mg/dL (Normal) H 12/11/18 06:40 Urine Ketones Negative mg/dL (NEGATIVE) 12/11/18 06:40 Urine Blood Negative (NEGATIVE) 12/11/18 06:40 Urine Nitrate Negative (NEGATIVE) 12/11/18 06:40 Urine Bilirubin Negative (NEGATIVE) 12/11/18 06:40 Urine Urobilinogen 2.0 mg/dL (0.2-1.0) 12/11/18 06:40 Ur Leukocyte Esterase Neg Fausto/uL (Negative) 12/11/18 06:40 Urine WBC (Auto) 4 /hpf (0-5) 12/11/18 06:40 Urine RBC (Auto) 1 /hpf (0-3) 12/11/18 06:40 Urine Bacteria Rare (<OCC) 12/11/18 06:40 Stool Occult Blood Positive (NEGATIVE) H 12/11/18 04:12 Stool Leukocytes, Qual Negative (NEGATIVE) 12/12/18 10:39 C. 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 He admits to feeling lightheaded and short of breath when he stands or exerts himself in any way. He states he has been getting physical therapy at [facility] and he has been ambulating with a walker. He states he has had 3 week history of soft watery malodorous brown stools since his last admission here. He states he lost about 60lbs over the past year. He denies fevers, chills, headaches, vision or hearing change, chest pain, palpitations, cough, abdominal pain, nausea, vomiting, dysuria, hematuria, leg pain or swelling, rashes, easy bruising or recent travel. He was recently admitted here from 11/08/18 and discharged on 11/28/18 for sepsis with UTI, bacteremia and empyema/left loculated pleural effusion for which he was treated with Zosyn and Vancomycin. He had a pigtail catheter placed by IR status post thoracentesis of pleural effusion. Hospital course: Patient admitted on 12/11/18 for gi bleed. Initially patient was started on protonix drip and was transfused with three units of PRBCs. Dr Aaron added as GI applications sales consultant. Bleeding likely due to mass found on recent EGD (11/12/18) - which pathology showed to be Poorly differentiated squamous cell carcinoma. Pt has seen Hem/Onc Dr Paredes, who recommended outpatient PET Scan for staging and if NO mets then Chemo+Radiation and Surgical evaluation. Diarrhea noted on admission negative for c diff. Pt noted to have stage II sacral ulcer and was started on medihoney, with optifoam dressing. Patient found to have poor BG control and was started on weight based Lantus regimen (5 units AC/ACHS). Patient Hgb/Hct stabilized over course. Started on Feosol 300mg twice daily. Also started on Nicoderm CQ taper. Patient continued on PEG feeds with Jevity per dietary recommendations. Diet supplemented with Folic acid/MVI/and thiamine. Continued medication (zoloft, remeron) for adjustment d/o with depressed mood. At discharge: Pt stable for discharge per Dr. Sebastian to [facility] He should be continued on the medications listed below. He should return to ED if symptoms return or worsen. Patient verbalized unders tanding of these instructions and agreed. Wound care instructions for stage II sacral ulcer: apply medihoney, and then cover with optifoam dressing daily Reposition patient Q2H Discharge instructions for [facility]: Jevity 1.5 bolus feeding @ 7 AM, 12 PM, 4 PM, and 8 pm via PEG Free water flushes (250ml), after each bolus feed, via PEG Patient must remain upright for at least 1 hr after each PEG tube feeding Medication reconciliation: Ferrous sulfate 300mg PEG BID Protonix 40mg PEG Q12H until Hgb/Hct are stable Folic acid 1mg PED daily Lantus 5 units SC q12H (7 AM & 7 PM) - Regular insulin sliding scale (low dose) Zoloft 50mg PEG Daily (8AM) Remeron 30mg PEG qHS (10pm) Folic Acid 1mg PEG Daily (8AM) Multi-delyn 5ml PEG daily (8AM) Thiamine 100mg PEG daily (8AM) Nicoderm cq patch TD daily (taper as follows): 21 mg TD Qdaily through 12/21/18 14mg TD Qdaily through 01/04/19 7mg TD Qdaily through 01/18/19 Please contact Adult Protective Services to make sure patient home is safe for return Upon Discharge from [facility] please instruct patient to follow up with Dr Devante Paredes ([phone]) for further management of Esophageal/Gastric Mass Discharge Exam - Additional Findings Additional findings: - Constitutional Appears: Non-toxic, No Acute Distress - Head Exam Head Exam: NORMAL INSPECTION, NORMOCEPHALIC - Eye Exam Eye Exam: EOMI, Normal appearance. absent: Nystagmus, Scleral icterus - ENT Exam ENT Exam: Mucous Membranes Moist - Respiratory Exam Respiratory Exam: Clear to Ausculation Bilateral, NORMAL BREATHING PATTERN. absent: Rales, Rhonchi, Wheezes - Cardiovascular Exam Cardiovascular Exam: REGULAR RHYTHM, +S1, +S2 - GI/Abdominal Exam GI & Abdominal Exam: Soft, Normal Bowel Sounds. absent: Tenderness Additional comments: PEG tube appreciated, no active signs of infection - Extremities Exam Extremities Exam: Normal Inspection - Neurological Exam Neurological Exam: Alert, Awake, Oriented x3 - Psychiatric Exam Psychiatric exam: Normal Affect, Normal Mood - Skin Skin Exam: Dry, Intact, Normal Color - SACRAL ulcer: stage II. 0.2 cm in diameter x 2 Discharge Plan - Follow Up Plan Condition: FAIR Disposition: REHAB FACILITY/REHAB UNIT Instructions: Gastrointestinal Bleeding (DC) Additional Instructions: Pt stable for discharge per Dr. Sebastian to [facility] He should be continued on the medications listed below. He should return to ED if symptoms return or worsen. Patient verbalized understanding of these instructions and agreed. Wound care instructions for stage II sacral ulcer: apply medihoney, and then cover with optifoam dressing daily Reposition patient Q2H Discharge instructions for [facility]: Jevity 1.5 bolus feeding @ 7 AM, 12 PM, 4 PM, and 8 pm via PEG Free water flushes (250ml), after each bolus feed, via PEG Patient must remain upright for at least 1 hr after each PEG tube feeding Medication reconciliation: Ferrous sulfate 300mg PEG BID Protonix 40mg PEG Q12H until Hgb/Hct are stable Folic acid 1mg PED daily Lantus 5 units SC q12H (7 AM & 7 PM) - Regular insulin sliding scale (low dose) Zoloft 50mg PEG Daily (8AM) Remeron 30mg PEG qHS (10pm) Folic Acid 1mg PEG Daily (8AM) Multi-delyn 5ml PEG daily (8AM) Thiamine 100mg PEG daily (8AM) Nicoderm cq patch TD daily (taper as follows): 21 mg TD Qdaily through 12/21/18 14mg TD Qdaily through 01/04/19 7mg TD Qdaily through 01/18/19 Please contact Adult Protective Services to make sure patient home is safe for return Upon Discharge from [facility] please instruct patient to follow up with Dr Devante Paredes ([phone]) for further management of Esophageal/Gastric Mass Referrals: Devante Paredes MD [Staff Provider] - <Nestor Sebastian - Last Filed: 12/15/18 19:12> Provider - Provider Date of Admission: 12/11/18 04:24 Attending physician: Rodríguez Latif MD Consults: 12/11/18 06:12 Nursing Referral for Wound Care Routine Comment: Physician Instructions: Reason For Exam: stage 2 sacral ulcer 12/11/18 11:16 Nursing Referral for Palliative Care Routine Comment: Physician Instructions: Reason For Exam: Triggered by protocol 12/11/18 12:55 Palliative Care Consult Routine Comment: Consulting Provider: Doris Pillai Physician Instructions: Reason For Exam: update on goals of care Hospital Course - Lab Results Lab Results: Micro Results 12/12/18 10:59 Stool Ova and Parasite Concentrate Exam - Final Most Recent Lab Values WBC 13.1 K/uL (4.8-10.8) H 12/15/18 06:02 RBC 3.13 Mil/uL (4.40-5.90) L 12/15/18 06:02 Hgb 8.5 g/dL (12.0-18.0) L 12/15/18 06:02 Hct 25.7 % (35.0-51.0) L 12/15/18 06:02 MCV 82.2 fL (80.0-94.0) 12/15/18 06:02 MCH 27.1 pg (27.0-31.0) 12/15/18 06:02 MCHC 33.0 g/dL (33.0-37.0) 12/15/18 06:02 RDW 21.5 % (11.5-14.5) H 12/15/18 06:02 Plt Count 204 K/uL (130-400) 12/15/18 06:02 MPV 8.3 fL (7.2-11.7) 12/15/18 06:02 Neut % (Auto) 81.7 % (50.0-75.0) H 12/15/18 06:02 Lymph % (Auto) 7.6 % (20.0-40.0) L 12/15/18 06:02 [place] % (Auto) 6.7 % (0.0-10.0) 12/15/18 06:02 Eos % (Auto) 3.6 % (0.0-4.0) 12/15/18 06:02 Baso % (Auto) 0.4 % (0.0-2.0) 12/15/18 06:02 Neut # (Auto) 10.7 K/uL (1.8-7.0) H 12/15/18 06:02 Lymph # (Auto) 1.0 K/uL (1.0-4.3) 12/15/18 06:02 [place] # (Auto) 0.9 K/uL (0.0-0.8) H 12/15/18 06:02 Eos # (Auto) 0.5 K/uL (0.0-0.7) 12/15/18 06:02 Baso # (Auto) 0.1 K/uL (0.0-0.2) 12/15/18 06:02 Neutrophils % (Manual) 83 % (50-75) H 12/15/18 06:02 Band Neutrophils % 6 % (0-2) H 12/15/18 06:02 Lymphocytes % (Manual) 6 % (20-40) L 12/15/18 06:02 Monocytes % (Manual) 4 % (0-10) 12/15/18 06:02 Eosinophils % (Manual) 1 % (0-4) 12/15/18 06:02 Platelet Estimate Normal (NORMAL) 12/15/18 06:02 Large Platelets Present 12/15/18 06:02 Polychromasia Slight 12/15/18 06:02 Hypochromasia (manual) Slight 12/15/18 06:02 Poikilocytosis (manual Slight 12/13/18 07:19 Basophilic Stippling Slight 12/14/18 07:21 Anisocytosis (manual) Marked 12/15/18 06:02 Target Cells Slight 12/13/18 07:19 Ovalocytes Slight 12/14/18 07:21 PT 14.7 SECONDS (9.7-12.2) H 12/11/18 02:40 INR 1.3 12/11/18 02:40 APTT 22.0 SECONDS (21-34) 12/11/18 02:40 Sodium 133 mmol/L (132-148) 12/15/18 06:02 Potassium 3.5 mmol/L (3.6-5.2) L 12/15/18 06:02 Chloride 95 mmol/L (98-107) L 12/15/18 06:02 Carbon Dioxide 30 mmol/L (22-30) 12/15/18 06:02 Anion Gap 11 (10-20) 12/15/18 06:02 BUN 13 mg/dL (9-20) 12/15/18 06:02 Creatinine 0.4 mg/dL (0.8-1.5) L 12/15/18 06:02 Est GFR ( Amer) > 60 12/15/18 06:02 Est GFR (Non-Af Amer) > 60 12/15/18 06:02 POC Glucose (mg/dL) 362 mg/dL (65-110) H 12/15/18 06:28 Random Glucose 300 mg/dL (75-110) H 12/15/18 06:02 Calcium 9.7 mg/dl (8.6-10.4) 12/15/18 06:02 Phosphorus 3.0 mg/dL (2.5-4.5) 12/12/18 07:30 Magnesium 1.8 mg/dL (1.6-2.3) 12/12/18 07:30 Iron 20 ug/dL (49-181) L 12/11/18 11:15 TIBC 160 ug/dL (250-450) L 12/11/18 11:15 % Saturation 12 (20-55) L 12/11/18 11:15 Total Bilirubin 0.5 mg/dL (0.2-1.3) 12/15/18 06:02 AST 14 U/L (17-59) L 12/15/18 06:02 ALT 24 U/L (21-72) 12/15/18 06:02 Alkaline Phosphatase 189 U/L (38-126) H 12/15/18 06:02 Total Protein 5.1 g/dL (6.3-8.3) L 12/15/18 06:02 Albumin 2.1 g/dL (3.5-5.0) L 12/15/18 06:02 Globulin 3.0 gm/dL (2.2-3.9) 12/15/18 06:02 Albumin/Globulin Ratio 0.7 (1.0-2.1) L 12/15/18 06:02 Vitamin B12 > 1000 pg/mL (239-931) H 12/11/18 11:15 Folate 15.7 ng/mL 12/11/18 11:15 Urine Color Yellow (YELLOW) 12/11/18 06:40 Urine Clarity Clear (Clear) 12/11/18 06:40 Urine pH 6.0 (5.0-8.0) 12/11/18 06:40 Ur Specific Sullivan 1.012 (1.003-1.030) 12/11/18 06:40 Urine Protein Negative mg/dL (NEGATIVE) 12/11/18 06:40 Urine Glucose (UA) 1+ mg/dL (Normal) H 12/11/18 06:40 Urine Ketones Negative mg/dL (NEGATIVE) 12/11/18 06:40 Urine Blood Negative (NEGATIVE) 12/11/18 06:40 Urine Nitrate Negative (NEGATIVE) 12/11/18 06:40 Urine Bilirubin Negative (NEGATIVE) 12/11/18 06:40 Urine Urobilinogen 2.0 mg/dL (0.2-1.0) 12/11/18 06:40 Ur Leukocyte Esterase Neg Fausto/uL (Negative) 12/11/18 06:40 Urine WBC (Auto) 4 /hpf (0-5) 12/11/18 06:40 Urine RBC (Auto) 1 /hpf (0-3) 12/11/18 06:40 Urine Bacteria Rare (<OCC) 12/11/18 06:40 Stool Occult Blood Positive (NEGATIVE) H 12/11/18 04:12 Stool Leukocytes, Qual Negative (NEGATIVE) 12/12/18 10:39 C. difficile Ag & Toxin Negative (NEGATIVE) 12/12/18 10:39 Blood Type AB POSITIVE 12/11/18 03:18 Antibody Screen Negative 12/11/18 03:18 Attending/Attestation - Attestation I have personally seen and examined this patient.: Yes I have fully participated in the care of the patient.: Yes I have reviewed all pertinent clinical information, including history, physical exam and plan: Yes Notes (Text): 12/15/18 19:11 Patient was seen and examined at 8:15 AM 12/15/18 [facility] with Optifoam dressing changed to Sacrum. Care of this patient and discharge instructions were gone over with resident Dr. Tubbs. Nestor Sebastian D.O.
[2018-12-15] MEDS ORDERED: (Lantus) Insulin Glargine, Recombinant SC SCH (19:00)
== END 2018-12-15 17:27 | DRG 375 ==
LOC: C.ER 01:42 → C.6T 04:24
PROVIDERS: ADMIT Family Medicine; ATTEND Family Medicine
PROC: 30233N1 Transfusion of Nonautologous Red Blood Cells into Peripheral Vein, Percutaneous Approach (ICD-10-PCS; principal; 2018-12-11)
PROC: 3E0G76Z Introduction of Nutritional Substance into Upper GI, Via Natural or Artificial Opening (ICD-10-PCS; 2018-12-11)
DX: C16.0 Malignant neoplasm of cardia (principal); D62 Acute posthemorrhagic anemia; K92.2 Gastrointestinal hemorrhage, unspecified; R64 Cachexia; Z68.1 Body mass index [BMI] 19.9 or less, adult; E46 Unspecified protein-calorie malnutrition; L89.152 Pressure ulcer of sacral region, stage 2; R63.4 Abnormal weight loss; F43.21 Adjustment disorder with depressed mood; E11.9 Type 2 diabetes mellitus without complications; K70.30 Alcoholic cirrhosis of liver without ascites; F10.10 Alcohol abuse, uncomplicated; Z66 Do not resuscitate; Z51.5 Encounter for palliative care; F17.210 Nicotine dependence, cigarettes, uncomplicated; R13.10 Dysphagia, unspecified; Z93.1 Gastrostomy status; Z87.11 Personal history of peptic ulcer disease; Z87.01 Personal history of pneumonia (recurrent); Z87.440 Personal history of urinary (tract) infections; Z86.19 Personal history of other infectious and parasitic diseases; Z79.4 Long term (current) use of insulin

== ENCOUNTER 2018-12-28 21:23 | Inpatient (IN) | payer BC | END 2019-01-05 19:07 | LOC: C.ER 21:23 → C.6T 22:39 ==